=== PATIENT | male | born 1935 | race Caucasian/White ===

== ENCOUNTER → 2017-09-15 11:27 | Outpatient (CLI) | payer MEDICARE, OTHER, SELFPAY ==
[2017-09-15 14:22] LABS: Hemoglobin A1c 5.7 % (4.2-6.3)
[2017-09-15 14:34] LABS: Microalbumin:Creatinine Ratio 56.4 mg/g CRE (<30 mg/g CRE)
== END ==
PROVIDERS: Family Provider Internal Medicine; PCP Internal Medicine; Visit Provider Nurse Practitioner Family
DX: E11.9 Type 2 diabetes mellitus without complications (principal)
CPT/HCPCS: 36415; 82043; 82570; 83036

== ENCOUNTER → 2017-09-21 09:13 | Outpatient (CLI) | payer MEDICARE, OTHER, SELFPAY ==
[2017-09-21 08:49] VITALS: BP 124/72; BMI 33.7
--- NOTE | 2017-09-21 09:11 | RAD_ITS ---
STUDY: X-RAY - PELVIS AND BILATERAL HIPS REASON FOR EXAM: Male, 81 years old. Bilateral hip pain. Status post fall. TECHNIQUE: Radiological exam, hip, bilateral, with pelvis when performed; 2 views COMPARISON: 04/24/2016. FINDINGS: There is a non-specific bowel gas pattern. There are atherosclerotic vascular calcifications of the pelvic arteries. Normal bilateral iliac wings, sacroiliac joints and visualized sacrum. Normal bilateral superior and inferior pubic rami. Normal pubic symphysis. Normal bilateral ischial tuberosities. Normal visualized right femoral head. There is osteoarthritic spur formation of the right acetabular rim. There is moderate articular joint space narrowing of the right hip. There again is total left hip prosthesis in place. RAD/Hip 2-3 Views with Pelvis IMPRESSION: Status post left hip prosthesis. No demonstrated acute fracture. Electronically Signed: Harpreet Palmer MD at 0:31 EST Tel , Service support ,
--- NOTE | 2017-09-21 09:11 | RAD_ITS ---
STUDY: X-RAY - RIGHT KNEE REASON FOR EXAM: Male, 81 years old. Status post fall. Knee pain. TECHNIQUE: 3 view(s) of the knee. COMPARISON: None. FINDINGS: Normal visualized distal femur. Normal visualized proximal tibia and fibula. Normal proximal tibiofibular articulation. The colon There is mild degenerative arthrosis of the medial femorotibial compartment. There is mild degenerative arthrosis of the lateral femorotibial compartment. There is mild degenerative arthrosis of the patellofemoral articulation. There is no demonstrated joint effusion. There is prepatellar soft tissue swelling. There are vascular calcifications. RAD/Knee 3 Views IMPRESSION: Degenerative arthrosis. Prepatellar soft tissue swelling. No demonstrated acute osseous changes. Electronically Signed: Harpreet Palmer MD at 0:26 EST Tel , Service support ,
--- NOTE | 2017-09-21 09:11 | RAD_ITS ---
STUDY: X-RAY - LUMBAR SPINE REASON FOR EXAM: Male, 81 years old. Low back pain following fall. TECHNIQUE: 3 view(s) of the lumbar spine were obtained. COMPARISON: None FINDINGS: Normal lumbar lordosis. There is mild dextroscoliosis probably positional. There is a normal alignment of the vertebrae. There is mild decrease height of T11 and T12 vertebrae probably old. There is endplate spondylosis at multiple levels. There is narrowing of L3-L4 disc space. There is no demonstrated fracture. There is atherosclerotic calcification of the abdominal aorta without a demonstrated aneurysm. There is partially visualized left hip prosthesis. RAD/Lumbar Spine 2 or 3 Views IMPRESSION: Degenerative changes of the spine, as detailed above. If symptoms persist, CT scan or MRI of the lumbar spine recommended. Electronically Signed: Harpreet Palemr MD at 0:28 EST Tel , Service support ,
== END ==
PROVIDERS: Family Provider Internal Medicine; PCP Internal Medicine; Visit Provider Physician Assistant
DX: M54.5 Low back pain (principal); M25.551 Pain in right hip; M25.552 Pain in left hip; S80.01XA Contusion of right knee, initial encounter
CPT/HCPCS: 72100; 73502; 73562

== ENCOUNTER → 2017-11-13 08:43 | Outpatient (CLI) | payer MEDICARE, OTHER, SELFPAY ==
[2017-11-13 09:47] LABS: PSA,Total- Diagnostic 1.25 ng/mL (0.0-4.0)
== END ==
PROVIDERS: Family Provider Internal Medicine; PCP Internal Medicine
DX: N40.1 Benign prostatic hyperplasia with lower urinary tract symptoms (principal)
CPT/HCPCS: 36415; 84153; 97035; 97530

== ENCOUNTER → 2018-01-07 05:41 | Outpatient (CLI) | payer MEDICARE, OTHER, SELFPAY ==
--- NOTE | 2018-01-07 09:08 | STRESSREP ---
Stress Test Report Date: 01/07/2018 Procedure: Pharmacologic stress nuclear imaging study Indications: Shortness of breath/dyspnea on exertion Consent: Per the patient Procedure: The patient underwent pharmacologic (Regadenoson) evaluation with a peak heart rate of 110 beats per minute (79 predicted maximal heart rate) and a peak blood pressure of 138/60 mmHg. The baseline ECG demonstrated sinus rhythm; poor R-wave progression. The peak pharmacologic ECG demonstrated no obvious ECG changes. There were occasional PVCs pretest, during infusion, and recovery. There was no complaint of chest discomfort during pharmacologic infusion or recovery. The examination was discontinued secondary to completion of protocol. Impression: 1. Pharmacologic (Regadenoson) evaluation 2. Peak pharmacologic ECG with no obvious ECG changes. 3. There were occasional PVCs pretest, during infusion, and recovery 4. Nuclear images pending Myocardial perfusion imaging study: Technique: The patient was injected with 14.1 millicuries of technetium 99m Cardiolite and subsequently rest SPECT Cardiolite nuclear imaging was obtained in the horizontal long, vertical long, and short axis views. The patient underwent pharmacologic (Regadenoson) evaluation with a peak heart rate of 110 beats per minute (79 % percent predicted maximal heart rate) and a peak blood pressure of 138/60 mmHg. The patient was injected with 45 millicuries of technetium 99m Cardiolite and subsequently stress SPECT Cardiolite nuclear imaging was obtained in the horizontal long, vertical long, and short axis views. A gated Cardiolite study at peak stress was obtained. Interpretation: Rest and stress SPECT Cardiolite nuclear imaging status post realignment, normalization, and attenuation correction demonstrate uniform tracer uptake and myocardial perfusion appearing within normal limits. There is end systolic thickening and brightening. The gated Cardiolite study demonstrates myocardial thickening and inward wall motion. The reported LVEF is 54 %. Impression: 1. Rest and stress SPECT Cardiolite nuclear imaging demonstrate relative uniform tracer uptake and myocardial perfusion appearing within normal limits. 2. The gated Cardiolite study reports an LVEF of 84 %. This note was generated with [employer] software. It may contain incorrect words, spelling, and punctuation that were not noted in checking the note before signing.
== END ==
PROVIDERS: Family Provider Internal Medicine; PCP Internal Medicine; Visit Provider Internal Medicine Cardiovascular Disease
DX: R06.02 Shortness of breath (principal); I49.1 Atrial premature depolarization; I49.3 Ventricular premature depolarization; E78.5 Hyperlipidemia, unspecified; I10 Essential (primary) hypertension
CPT/HCPCS: 78452; 93017; A9500; A4216; J2785

== ENCOUNTER 2018-01-27 13:30 | Outpatient (RCR) | payer MEDICARE, OTHER, SELFPAY ==
--- NOTE | 2017-10-23 08:50 | HP.PTEVAL_ITS ---
Patient's Visit Information BELEN BRIGGS is a 82 year old M referred to Physical Therapy by MANUELA Moreira NP.MYODE with a diagnosis of . Date of Evaluation: 10/23/17 Physical Therapist: Donny Bonner PT, - Visit Plan Frequency: 2x /Week Duration: 4 Weeks Plan: MODALITIES ,DLS,POSTURAL EX'S,STRENGTHENING - Subjective Subjective: This 82 y/o male presents physical therapy with low back pain with sciatica since Jul 2017.Patient has had pain many years. Patient fell In Jul on right knee developed bursitis and had to get knee drained. Symptoms worse with standing,walking,bending and lifting. Symptom better with rest and sitting. Location of symtoms worse woth left gluteus and lateral hip.Denies parathesia/ tingling ,described as sharp pain. Patient has Tens unit at home .Did have chiropractor showed DDD. Pain doesnt affect sleeping. Pain affects affect quality of life and function. SOCIAL: single. VOCATION: retired. 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 NEURO: denies parathesia/tingling,reflexes L3-4,L4-5,L5-S1. GAIT: normal eze reciprocal pattern. MMT: 4/5 quads/hams/hip ,ankle 4/5. LUMBAR ROM : flexion min loss , extension mod loss,side glides mod loss. FLEXABLITY: hams min tight. SYMMTRIES : align - Special Tests L/S Slump test left side: Negative L/S Slump test right side: Negative L/S Left Straight Leg Raise: Negative L/S Right Straight Leg Raise: Negative Lumbar Standing: Flexion - Mechanical Response: No effect Lumbar Standing: Flexion - Symptoms During Testing: No effect Lumbar Standing: Flexion - Symptoms After Testing: No effect Lumbar Standing: Extension - Mechanical Response: No effect Lumbar Standing: Extension - Symptoms During Testing: Increases Lumbar Standing: Extension - Symptoms After Testing: No worse Lumbar Standing: Right Side Glides - Mechanical Response: No effect Lumbar Standing: Right Side Glennie - Symptoms During Testing: No effect Lumbar Standing: Right Side Glennie - Symptoms After Testing: No effect Lumbar Standing: Left Side Glennie - Mechanical Response: No effect Lumbar Standing: Left Side Glennie - Symptoms During Testing: No effect Lumbar Standing: Left Side Glennie - Symptoms After Testing: No effect - Goals Goal 1:: Independant with HEP Goal Time Frame: 4-6 Weeks Goal 2:: Independant with posture/maria eugenia mechanics for ADL'S Goal Time Frame: 4-6 Weeks Goal 3:: Decrease lumbar pain and radicular symptoms by 50% or greater to improve function with ADL'S Goal Time Frame: 4-6 Weeks Goal 4:: Patient be able to perform ADL's and housework tasks with min limiations with standing and walking. Goal Time Frame: 4-6 Weeks Goal 5:: Patient to be d/c to prophalaxix Goal Time Frame: 4-6 Weeks - Rehabilitation Potential Physical Therapy Diagnosis: This patient presents with lumbar pain with radicular symtoms in left leg possible lateral stenosis worse with walking , standing better with sitting thus impairs ablity to perform ADL'S and housework tasks. Rehabilitation Potential: Good - Anticipated Interventions Patient/Client Instruction: Educate patient on: Condition, Plan of Care For the Purpose of:: To decrease pain, To increase ROM, To improve muscle performance and motor function, To improve ability to perform ADL's, To increase tolerance to activity/condition/position, To improve ability of physical actions for home/community/work/leisure, To improve health of tissue, To decrease soft tissue restriction, To increase flexibility/ROM, To improve ability to perform tasks related to life management Therapeutic Exercise to Include: Strength training, Body mechanics, Postural training, Flexibilty training, Maria Del Rosario Exercises For the Purpose of:: To decrease pain, To increase ROM, To improve muscle performance and motor function, To increase tolerance to activity/condition/ position, To improve ability of physical actions for home/community/work/leisure , To improve health of tissue, To decrease soft tissue restriction, To increase flexibility/ROM, To improve ability to perform tasks related to life management TENS: Yes IF ES: Yes Cryotherapy (ice pack, ice massage): Yes Thermo therapy (hot pack): Yes Ultrasound (thermal/non thermal): Yes For the Purpose of:: To decrease pain, To increase ROM, To improve muscle performance and motor function, To improve ability to perform ADL's, To increase tolerance to activity/condition/position, To improve ability of physical actions for home/community/work/leisure, To improve health of tissue, To decrease soft tissue restriction, To increase flexibility/ROM, To improve ability to perform tasks related to life management Thank you for the opportunity to evaluate your patient. For Medicare and Medicare HMO plans, please review the plan of care and approve it. It will need to be FAXED BACK to us at [phone] for Medicare purposes. Please let me know if there are questions or concerns regarding this plan of care. Physician Signature: Date:
--- NOTE | 2017-11-20 08:01 | HP.PTREVAL_ITS ---
Jack Quinteros, MANAGER [employer], EMILY It has been my pleasure to treat BELEN BRIGGS over the last 8 visits for . Please see the progress note below for an update on the physical therapy plan of care! Subjective: Patient BP is running high. Patient reports dizzy. BACK PAIN is better less sharp pain Objective/Function: POSTURE: mild forward. GAIT: mild foward posture reciprocal. FLEXABLITY:hams mi tight. MMT: quads/hams 4/5,hip flexion 4-/5, ankle. LUMBAR ROM: min loss,etension mod loss,side glides min Plan Plan: CONT WITH POC Goals Goal 1:: Independant with HEP Goal Time Frame: 4-6 Weeks Goal Progress: Progressing Goal 2:: Independant with posture/maria eugenia mechanics for ADL'S Goal Time Frame: 4-6 Weeks Goal Progress: Progressing Goal 3:: Decrease lumbar pain and radicular symptoms by 50% or greater to improve function with ADL'S Goal Time Frame: 4-6 Weeks Goal Progress: Progressing Goal 4:: Patient be able to perform ADL's and housework tasks with min limiations with standing and walking. Goal Time Frame: 4-6 Weeks Goal Progress: Progressing Goal 5:: Patient to be d/c to prophalaxix Goal Time Frame: 4-6 Weeks Goal Progress: Progressing Anticipated Interventions Patient/Client Instruction: Educate patient on: Condition, Plan of Care For the Purpose of:: To decrease pain, To increase ROM, To improve muscle performance and motor function, To improve ability to perform ADL's, To increase tolerance to activity/condition/position, To improve ability of physical actions for home/community/work/leisure, To improve health of tissue, To decrease soft tissue restriction, To increase flexibility/ROM, To improve ability to perform tasks related to life management Therapeutic Exercise to Include: Strength training, Body mechanics, Postural training, Flexibilty training, Maria Del Rosario Exercises For the Purpose of:: To decrease pain, To increase ROM, To improve muscle performance and motor function, To increase tolerance to activity/condition/ position, To improve ability of physical actions for home/community/work/leisure , To improve health of tissue, To decrease soft tissue restriction, To increase flexibility/ROM, To improve ability to perform tasks related to life management TENS: Yes IF ES: Yes Cryotherapy (ice pack, ice massage): Yes Thermo therapy (hot pack): Yes Ultrasound (thermal/non thermal): Yes For the Purpose of:: To decrease pain, To increase ROM, To improve muscle performance and motor function, To improve ability to perform ADL's, To increase tolerance to activity/condition/position, To improve ability of physical actions for home/community/work/leisure, To improve health of tissue, To decrease soft tissue restriction, To increase flexibility/ROM, To improve ability to perform tasks related to life management Please do not hesitate to contact me at [phone] by phone or Fax: if you have questions or concerns regarding this new plan of care! Sincerely, Donny Bonner, PT,
--- NOTE | 2017-12-25 15:45 | HP.PTREVAL ---
Jack Quinteros, F[employer] INS[employer]ATION INSTALLER-C, It has been my pleasure to treat BELEN BRIGGS over the last 16 visits for . Please see the progress note below for an update on the physical therapy plan of care! Subjective: Patient reports more pain today left lumbar . Symptoms sore when getting up from chair... Pain can affected walking ,standing and ADL'S ,but overall stronger Objective/Function: POSTURE: mild foward posture,flat lumbar. GAIT: ambulates with mild foward posture,slow eze. MMT: quads/hams 4/5,hip 4-/5 ankl e4/5. LUMBAR ROM: flexion min loss ,extension min /mod loss,. -SLR Plan Plan: CONT WITH POC 2XWEEK FOR 3WEEKS Goals Goal 1:: Independant with HEP Goal Time Frame: 4-6 Weeks Goal Progress: Progressing Goal 2:: Independant with posture/maria eugenia mechanics for ADL'S Goal Time Frame: 4-6 Weeks Goal Progress: Progressing Goal 3:: Decrease lumbar pain and radicular symptoms by 50% or greater to improve function with ADL'S Goal Time Frame: 4-6 Weeks Goal Progress: Progressing Goal 4:: Patient be able to perform ADL's and housework tasks with min limiations with standing and walking. Goal Time Frame: 4-6 Weeks Goal Progress: Progressing Goal 5:: Patient to be d/c to prophalaxix Goal Time Frame: 4-6 Weeks Goal Progress: Progressing Anticipated Interventions Patient/Client Instruction: Educate patient on: Condition, Plan of Care For the Purpose of:: To decrease pain, To increase ROM, To improve muscle performance and motor function, To improve ability to perform ADL's, To increase tolerance to activity/condition/position, To improve ability of physical actions for home/community/work/leisure, To improve health of tissue, To decrease soft tissue restriction, To increase flexibility/ROM, To improve ability to perform tasks related to life management Therapeutic Exercise to Include: Strength training, Body mechanics, Postural training, Flexibilty training, Maria Del Rosario Exercises For the Purpose of:: To decrease pain, To increase ROM, To improve muscle performance and motor function, To increase tolerance to activity/condition/position, To improve ability of physical actions for home/community/work/leisure, To improve health of tissue, To decrease soft tissue restriction, To increase flexibility/ROM, To improve ability to perform tasks related to life management TENS: Yes IF ES: Yes Cryotherapy (ice pack, ice massage): Yes Thermo therapy (hot pack): Yes Ultrasound (thermal/non thermal): Yes For the Purpose of:: To decrease pain, To increase ROM, To improve muscle performance and motor function, To improve ability to perform ADL's, To increase tolerance to activity/condition/position, To improve ability of physical actions for home/community/work/leisure, To improve health of tissue, To decrease soft tissue restriction, To increase flexibility/ROM, To improve ability to perform tasks related to life management Please do not hesitate to contact me at [phone] by phone or if you have questions or concerns regarding this new plan of care! Sincerely, Donny Bonner PT,
--- NOTE | 2018-01-27 13:59 | HP.PTDCSUM ---
HP - PT D/C Summary It has been my pleasure to treat BELEN BRIGGS under orders from Jack Quinteros NP-C, for the diagnosis of LOW BACK PAIN WITH LEFT SIDE SCIATICA for a total of 19 visit(s). Discharge Date: 01/27/18 Please see the following information for a summary of their discharge status. - Subjective Subjective: Doing better less pain overall.. Doing more activities ADL'S walking standing - Pain Bilateral Back Pain Intensity (Out of 10): 0 Left Lower Extremity Pain Intensity (Out of 10): 0 - Overall Improvement % Improvement: 60 - Objective Objective/Function: POSTURE: mild foward posture,decrease lordosis. GAIT: mild foward posture reciprocal pattern. MMT: 4/5 quads/hams/hip /ankle 4/5. LUMBAR ROM: flexion min loss ,extension min/mod lossmside glides mod loss. -SLR - Goals Goal 1:: Independant with HEP Goal Progress: Goal Met Goal 2:: Independant with posture/maria eugenia mechanics for ADL'S Goal Progress: Goal Met Goal 3:: Decrease lumbar pain and radicular symptoms by 50% or greater to improve function with ADL'S Goal Progress: Goal Met Goal 4:: Patient be able to perform ADL's and housework tasks with min limiations with standing and walking. Goal Progress: Progressing Goal 5:: Patient to be d/c to prophalaxix Goal Progress: Goal Met - Plan Plan: HEP - D/C Information Discharge Comments: HEP If there are questions or concerns regarding this patient's physical therapy, please feel free to call me at [phone]. Thank you for the referral of this patient. Sincerely, Donny Bonner, PT,
== END 2018-01-27 19:00 | disposition home or self-care (01) ==
LOC: PT 13:30
PROVIDERS: Family Provider Internal Medicine; PCP Internal Medicine; Visit Provider Nurse Practitioner Family
DX: M54.42 Lumbago with sciatica, left side (principal)
CPT/HCPCS: 97014; 97035; 97110; 97162; 97530; G0283

== ENCOUNTER → 2018-02-04 05:50 | Outpatient (CLI) | payer MEDICARE, OTHER, SELFPAY ==
[2018-02-04 07:32] LABS: Anion Gap 7 (5-15); BUN 25 mg/dL (7-18); BUN/Creat Ratio 17.9 RATIO (10-20); Calcium,Total 8.6 mg/dL (8.5-10.1); Chloride 106 mmol/L (98-107); EST Glomerular Filtration Rate 52 mL/min (>60); Est Glom Filt Rate - Afr Amer 63 mL/min (>60); Glucose 107 mg/dL (74-106); Potassium 4.5 mmol/L (3.5-5.1); Sodium Level 142 mmol/L (136-145)
[2018-02-04 07:35] LABS: Microalbumin:Creatinine Ratio 111.4 mg/g CRE (<30 mg/g CRE)
[2018-02-04 08:02] LABS: Hemoglobin A1c 5.5 % (4.2-6.3)
== END ==
PROVIDERS: Family Provider Internal Medicine; PCP Internal Medicine; Visit Provider Internal Medicine
DX: E11.9 Type 2 diabetes mellitus without complications (principal); N18.3 Chronic kidney disease, stage 3 (moderate)
CPT/HCPCS: 36415; 80048; 82043; 82570; 83036

== ENCOUNTER → 2018-03-25 12:03 | Outpatient (CLI) | payer MEDICARE, OTHER, SELFPAY ==
--- NOTE | 2018-03-25 12:04 | MRI_ITS ---
STUDY: MRI LUMBAR SPINE WITHOUT CONTRAST REASON FOR EXAM: Male, 82 years old. LOW BACK PAIN pain low back and bilat legs x6 months TECHNIQUE: Standardized fat and water weighted pulse sequences were obtained in the sagittal and axial planes. COMPARISON: X-ray September 21, 2017 FINDINGS: Normal lumbar lordosis. There is no substantial scoliosis. Normal conus medullaris that terminates at the T12-L1 level. 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 There is minimal anterolisthesis L3-4. There is multilevel disc desiccation. There is loss of disc height at L1-2. Vertebral body heights are maintained. Bone marrow signal is normal. There is multilevel facet arthropathy and ligamentum flavum hypertrophy. This is severe at L3-4 and L4-5. T12/L1: There is a diffuse bulge. There is mild central canal stenosis and mild bilateral neuroforaminal stenosis. L1/2: There is a diffuse bulge. There is mild central canal stenosis and moderate bilateral neuroforaminal stenosis. L2/3: There is a diffuse bulge. There is mild central canal stenosis and moderate left and mild to moderate right neuroforaminal stenosis. L3/4: There is a diffuse bulge. There is severe central canal stenosis and severe right and moderate left neuroforaminal stenosis. L4/5: There is a diffuse bulge. There is moderate central canal stenosis and severe right and moderate to severe left neuroforaminal stenosis. L5/S1: There is a diffuse bulge. There is impression on the ventral thecal sac and moderate left and mild to moderate right neuroforaminal stenosis. Normal visualized sacral ala. Normal visualized paraspinous soft tissue structures. MRI/Spine Lumbar (Routine) IMPRESSION: Multilevel degenerative changes, as described above, including facet arthropathy and ligamentum flavum hypertrophy. T12/L1: There is a diffuse bulge. There is mild central canal stenosis and mild bilateral neuroforaminal stenosis. L1/2: There is a diffuse bulge. There is mild central canal stenosis and moderate bilateral neuroforaminal stenosis. L2/3: There is a diffuse bulge. There is mild central canal stenosis and moderate left and mild to moderate right neuroforaminal stenosis. L3/4: There is a diffuse bulge. There is severe central canal stenosis and severe right and moderate left neuroforaminal stenosis. L4/5: There is a diffuse bulge. There is moderate central canal stenosis and severe right and moderate to severe left neuroforaminal stenosis. L5/S1: There is a diffuse bulge. There is moderate left and mild to moderate right neuroforaminal stenosis. Electronically Signed: Radha Bradshaw MD at 14:05 EDT , Service support ,
== END ==
PROVIDERS: Family Provider Internal Medicine; PCP Internal Medicine; Visit Provider Nurse Practitioner Family
DX: M51.36 Other intervertebral disc degeneration, lumbar region (principal); R93.7 Abnormal findings on diagnostic imaging of other parts of musculoskeletal system; M54.16 Radiculopathy, lumbar region
CPT/HCPCS: 72148

== ENCOUNTER → 2018-04-28 12:37 | Outpatient (CLI) | payer MEDICARE, OTHER, SELFPAY ==
[2018-04-28 14:36] LABS: Absolute Lymphocyte Count 1.05 X10^3/ul (0.83-4.51); Absolute Neutrophil Count 2.9 X10^3/uL (2.0-7.7); Basophil# 0.01 X10^3/uL; Basophil% 0.2 % (0-1); Eosinophil# 0.05 X10^3/uL; Eosinophils% 1.2 % (0-5); Hematocrit 29.1 % (40-54); Hemoglobin 9.6 g/dl (13.0-16.5); Lymphocyte # 1.05 X10^3/ul (4.0); Lymphocyte % 24.2 % (19-41); Mean Corpuscular Hgb 28.7 pg (27.0-32.0); Mean Corpuscular Volume 86.9 fL (80-94); Monocyte# 0.35 X10^3/uL; Monocyte% 8.1 % (0-10); Neutrophil # 2.85 X10^3/uL (2.7-7.7); Neutrophil % 65.6 % (47-70); Platelet Count 68 K/mm3 (150-450); RBC Distribution Width CV 20.8 % (11.6-14.6); RBC Distribution Width SD 60.4 fl (35.1-43.9); Red Blood Count 3.35 M/mm3 (4.6-6.2); White Blood Count 4.3 K/mm3 (4.4-11.0)
[2018-04-28 14:38] LABS: Differential Indicated SCAN CRITERIA MET; POSITIVE COUNT NO; POSITIVE DIFFERENTIAL NO; POSITIVE MORPHOLOGY YES
== END ==
PROVIDERS: Family Provider Internal Medicine; PCP Internal Medicine; Visit Provider Nurse Practitioner Family
DX: R06.02 Shortness of breath (principal); R04.2 Hemoptysis
CPT/HCPCS: 36415; 85025

== ENCOUNTER → 2018-04-29 09:16 | Outpatient (CLI) | payer MEDICARE, OTHER, SELFPAY | PROVIDERS: Family Provider Internal Medicine; PCP Internal Medicine; Visit Provider Nurse Practitioner Family | DX: R06.02 Shortness of breath (principal); R04.2 Hemoptysis; J44.9 Chronic obstructive pulmonary disease, unspecified | CPT/HCPCS: 87070; 87106; 87186; 87205 ==

== ENCOUNTER → 2018-05-04 09:36 | Outpatient (CLI) | payer MEDICARE, OTHER, SELFPAY ==
--- NOTE | 2018-05-04 09:38 | CT_ITS ---
STUDY: CT CHEST WITHOUT CONTRAST REASON FOR EXAM: Male, 82 years old. Shortness of breath RADIATION DOSAGE (If Supplied By Facility): CTDIvol = ( 17.54 ) mGy, DLP = ( 626.66 ) mGycm TECHNIQUE: Transaxial imaging was performed without the administration of intravenous contrast material. Individualized dose optimization techniques were used for this CT. COMPARISON: None. FINDINGS: Unenhanced thyroid is grossly within normal limits. The lungs are adequately inflated. There is bibasilar airspace disease with small effusions. Throughout both lungs, there are small nodular densities demonstrating some spiculation suggesting malignancy versus inflammation or infection. Largest of these is in the left upper lobe measuring 3.4 x 2.6 cm. Another is seen in the inferior aspect of the left upper lobe measuring 1 x 1.1 cm and several punctate ones are in the left lower lobe and right lower lobe. Early emphysematous changes noted in the upper lobes. Borderline cardiomegaly. Unremarkable pericardium. Multiple small mediastinal lymph nodes are noted. Pretracheal lymph node noted measuring 9 x 8 mm. Subcarinal lymph node noted measuring 2.5 x 1.2 cm. Normal hilar regions. Normal unenhanced pulmonary arteries. There is atherosclerotic tortuosity of the aortic arch and descending thoracic aorta. There are multi-level degenerative changes of the thoracic spine. There is no demonstrated abnormality of the visualized upper abdomen. CT/Chest without Contrast IMPRESSION: 1. Hypoinflated lungs with bibasilar airspace disease and small effusions. Throughout both lungs, small nodular densities demonstrating some spiculation. Given their appearance, more likely related to inflammation or infection. Less likely malignancy however, not excluded. Repeat chest CT will be needed in 3-6 months to reevaluate. 2. Early emphysematous changes in the upper lobes. 3. Several nonspecific mediastinal lymph nodes Electronically Signed: Shine Dumont DO at 7:54 EDT Tel , Service support ,
== END ==
PROVIDERS: Family Provider Internal Medicine; PCP Internal Medicine; Visit Provider Nurse Practitioner Family
DX: R06.02 Shortness of breath (principal); R05 Cough; R04.2 Hemoptysis; J44.9 Chronic obstructive pulmonary disease, unspecified
CPT/HCPCS: 71250

== ENCOUNTER → 2018-05-17 10:18 | Outpatient (CLI) | payer MEDICARE, OTHER, SELFPAY ==
[2018-05-17 12:31] LABS: Absolute Lymphocyte Count 1.28 X10^3/ul (0.83-4.51); Absolute Neutrophil Count 2.9 X10^3/uL (2.0-7.7); Basophil# 0.02 X10^3/uL; Basophil% 0.4 % (0-1); Eosinophil# 0.02 X10^3/uL; Eosinophils% 0.4 % (0-5); Hematocrit 31.3 % (40-54); Hemoglobin 10.2 g/dl (13.0-16.5); Lymphocyte # 1.28 X10^3/ul (4.0); Lymphocyte % 27.2 % (19-41); Mean Corp Hgb Conc 32.6 g/gl (32-36); Mean Corpuscular Hgb 28.2 pg (27.0-32.0); Mean Corpuscular Volume 86.5 fL (80-94); Monocyte# 0.45 X10^3/uL; Monocyte% 9.6 % (0-10); Neutrophil % 61.6 % (47-70); Platelet Count 70 K/mm3 (150-450); RBC Distribution Width CV 21.9 % (11.6-14.6); Red Blood Count 3.62 M/mm3 (4.6-6.2); White Blood Count 4.7 K/mm3 (4.4-11.0)
[2018-05-17 12:32] LABS: Differential Indicated SCAN CRITERIA MET; POSITIVE COUNT NO; POSITIVE DIFFERENTIAL NO; POSITIVE MORPHOLOGY YES
[2018-05-17 12:51] LABS: Hemoglobin A1c 6.3 % (4.2-6.3)
[2018-05-17 13:26] LABS: Anisocytosis 2+; Macrocytosis RARE; Platelet Estimate MKD DEC (ADEQ)
[2018-05-17 13:27] LABS: Schistocytes 2+
[2018-05-18 13:30] LABS: Pathologist Review Reviewed
== END ==
PROVIDERS: Family Provider Internal Medicine; PCP Internal Medicine; Referring Provider Internal Medicine; Visit Provider Internal Medicine
DX: D46.20 Refractory anemia with excess of blasts, unspecified (principal); E11.9 Type 2 diabetes mellitus without complications
CPT/HCPCS: 36415; 83036; 85025

== ENCOUNTER 2018-05-26 11:32 | Inpatient (IN) | payer MEDICARE, OTHER, SELFPAY ==
[2018-05-26] VITALS (9 sets, daily range): BP systolic 113–161; BP diastolic 65–98; PULSE 80–94; RESP 17–22; TEMP 36.6–37.1; O2SAT 92–99; BMI 33.4; BMI 31.5
--- NOTE | 2018-05-26 11:57 | RAD_ITS ---
STUDY: X-RAY CHEST REASON FOR EXAM: Male, 82 years old. INCREASING SOB, SWELLING IN BOTH LEGS, RECENT FALL, AND MID CHEST PAIN WITH EXERTION. COPD, EMPHYSEMA TECHNIQUE: Single AP portable view of the chest. COMPARISON: Chest x-ray April 10, 2014, chest CT May 04, 2018 FINDINGS: Cardiac monitoring leads are present. Low lung lines are noted. There is mild nonspecific elevation the right hemidiaphragm. There is evidence of a right-sided pleural effusion. Previously note was made of a small left pleural effusion. This is not identified on this single projection of the chest. There is mild cardiac enlargement. Normal mediastinum and delroy. Normal visualized pulmonary arteries. There is atherosclerotic calcification of the aortic arch . Normal visualized thoracic spine. Normal visualized ribs, clavicles, and shoulders. There is no demonstrated abnormality of the visualized soft tissue structures of the upper abdomen. RAD/Chest 1 View (Portable) IMPRESSION: Low lung volumes. Small right pleural effusion. No evidence of acute failure. Stable cardiomegaly. Electronically Signed: Juana Schulz MD at 13:02 EDT , Service support ,
--- NOTE | 2018-05-26 11:57 | EKG12_ITS ---
Test Reason : SOB Blood Pressure : / mmHG Vent. Rate : 089 BPM Atrial Rate : 250 BPM P-R Int : 000 ms QRS Dur : 086 ms QT Int : 364 ms P-R-T Axes : 000 -62 041 degrees QTc Int : 442 ms Atrial fibrillation Left axis deviation Inferior infarct , age undetermined Anteroseptal infarct , age undetermined Abnormal ECG Confirmed by SHELBY CORADO, BG ([id number]), assistant production editor QUINN BLAIR ([id number]) on 05/31/2018 3:52:40 PM Referred By: Mic Khan Confirmed By:BG RYAN MD
--- NOTE | 2018-05-26 12:13 | ED.VISSUMM ---
- ER Visit Summary Date of Service: 05/26/18 Chief Complaint: Shortness of breath and leg swelling History of Present Illness: The patient is a 82 M history of hypertension, COPD but not on oxygen and ixo-rhtesck-xoxorbwko diabetes. Patient states that he has had shortness of breath for last month primarily with exertion. He denies chest pain. He denies fever. He has a chronic cough. He states he was diagnosed with pneumonia. But now he states he has had weight gain and swelling to both lower extremities. No history of DVT or PE. No recent travel, surgery, hospitalization or immobilization. No chest pain or hemoptysis. Physical Examination: Older male no acute distress. Lying in bed. Vital signs are stable. His pulse ox is 92% on room air no hypoxia. H EENT exam unremarkable. Neck nontender. No JVD no lymphadenopathy. Lungs clear to auscultation bilaterally. Heart A. fib at 90.. Abdomen soft and nontender. Normal bowel sounds no peritoneal signs. He is moving all 4 extremities. There are no motor deficits. He does have 1+ pitting edema with both lower extremities. Calves are nontender. Neurologically is awake and alert. With no focal deficits. Test Results: EKG A. fib rate of 89. This is change from an EKG from 2012 but I do not have a more recent EKG. Patient denies having a history of A. fib I do not know if that is accurate. CBC shows pancytopenia with a white count of 3. Hemoglobin of 9.3 which is around his baseline. Platelet count 76,000 again along his baseline. Chemistries unremarkable creatinine 1.55 which is his baseline renal insufficiency. Troponin 0 0.055 BNP 282. Chest x-ray stable cardiomegaly with a small right pleural effusion. Emergency Department Course and Treatment: Patient with exertional dyspnea and leg swelling will undergo cardiac workup. Treatment Plan: Repeat exam patient is doing well. He states he cannot even walk around his house without having him to sit down to catch his breath. He spoke to the hospitalist about admission. Disposition: Admission Impression: Acute exertional dyspnea Bilateral peripheral edema Atrial fibrillation Rule out CHF Chronic pancytopenia Chronic renal insufficiency This note was generated with [employer] dictation software. It may contain incorrect words, spelling, and punctuation that were not noted in review of the chart prior to signing ED Disposition - Plan for ED Patient: Chief Complaint: Shortness of Breath
[2018-05-26] MEDS: Aspirin 81 MG TAB.CHEW 324 MG PO (12:54)
[2018-05-26 13:00] LABS: Absolute Neutrophil Count 2.3 X10^3/uL (2.0-7.7); Basophil# 0.01 X10^3/uL; Basophil% 0.3 % (0-1); Eosinophil# 0.02 X10^3/uL; Eosinophils% 0.6 % (0-5); Hematocrit 28.1 % (40-54); Hemoglobin 9.3 g/dl (13.0-16.5); Lymphocyte % 23.9 % (19-41); Mean Corp Hgb Conc 33.1 g/gl (32-36); Mean Corpuscular Hgb 28.4 pg (27.0-32.0); Mean Corpuscular Volume 85.7 fL (80-94); Neutrophil % 68.6 % (47-70); Platelet Count 76 K/mm3 (150-450); RBC Distribution Width CV 22.3 % (11.6-14.6); RBC Distribution Width SD 63.7 fl (35.1-43.9); Red Blood Count 3.28 M/mm3 (4.6-6.2); White Blood Count 3.4 K/mm3 (4.4-11.0)
[2018-05-26 13:01] LABS: Anion Gap 4 (5-15); BUN 22 mg/dL (7-18); BUN/Creat Ratio 14.2 RATIO (10-20); Calcium,Total 8.4 mg/dL (8.5-10.1); Chloride 105 mmol/L (98-107); Creatinine, Serum 1.55 mg/dL (0.70-1.30); EST Glomerular Filtration Rate 46 mL/min (>60); Est Glom Filt Rate - Afr Amer 56 mL/min (>60); Estimated Creatinine Clearance 38.59 ml/min; Glucose 102 mg/dL (74-106); Potassium 4.5 mmol/L (3.5-5.1); Sodium Level 136 mmol/L (136-145)
[2018-05-26 13:02] LABS: Differential Indicated SCAN CRITERIA MET; POSITIVE COUNT NO; POSITIVE DIFFERENTIAL NO; POSITIVE MORPHOLOGY YES
[2018-05-26 13:23] LABS: Anisocytosis 3+; Microcytosis 2+; Schistocytes 2+
[2018-05-26 13:25] LABS: Platelet Estimate MOD DEC (ADEQ)
[2018-05-26 13:27] LABS: BNP,B-Type NATRIURETIC PEPTIDE 282.3 pg/mL (0-100)
--- NOTE | 2018-05-26 14:37 | ECHOD_ITS ---
Reason For Study: CHF Procedure This was a 2D Doppler, Color Flow transthoracic echocardiogram. Exam performed portable in patient room. Left Ventricle Normal LV size. Moderate concentric left ventricular hypertrophy. Left ventricular systolic function is normal. The estimated ejection fraction is 60 %. Diastolic function is indeterminate. No regional wall motion abnormalities noted. Right Ventricle Normal RV size. Normal systolic function. Atria The left atrium is moderately enlarged. The right atrium is mildly enlarged. Mitral Valve There is mild to moderate mitral annular calcification. Mild (1+) eccentric mitral valve insufficiency. Tricuspid Valve Normal tricuspid valve. Mild tricuspid valve insufficiency. Aortic Valve Normal aortic valve. Trisinus/trileaflet aortic valve. Mild (1+) aortic valve insufficiency. Pulmonic Valve Normal pulmonic valve. Great Vessels Normal aortic root. The pulmonary artery is normal size. Normal inferior vena cava. Pericardium/Pleural No pericardial effusion. MMode/2D Measurements & Calculations LVIDd: 4.0 cm IVSd: 1.5 cm Ao root diam: 3.4 cm LVIDs: 3.0 cm LVPWd: 1.5 cm LA dimension: 4.7 cm RVDd: 3.7 cm FS: 24.3 % LAV(MOD-bp): 115.9 ml LA A4 area: 27.3 cm2 RA A4 area: 20.3 cm2 LAV(MOD-bp) Indexed: 52.2 ml/m2 LAV(MOD-sp2): 104.7 ml LAV(MOD-sp4): 104.8 ml Doppler Measurements & Calculations MV E max miri: 122.9 cm/sec Ao V2 max: 140.8 cm/sec AI max miri: 380.2 cm/sec Ao max P.9 mmHg AI max P.9 mmHg AI dec slope: 234.6 cm/sec2 AI P1/2t: 474.6 msec LV V1 max: 92.5 cm/sec PA V2 max: 87.0 cm/sec TR max miri: 288.3 cm/sec LV V1 max P.4 mmHg TR max P.7 mmHg Interpretation Summary Normal LV size. Moderate concentric left ventricular hypertrophy. Left ventricular systolic function is normal. The estimated ejection fraction is 60 %. Diastolic function is indeterminate. The left atrium is moderately enlarged. Ordering Physician: Mason Martinez Referring Physician: Mic Khan Performed By: Nora Saeed, MISSYCS, RVT
--- NOTE | 2018-05-26 14:46 | PCM.HP.STD ---
Problem List (1) Acute on chronic diastolic CHF (congestive heart failure) Status: Acute History of Present Illness Date of Admission: 05/26/18 Chief Complaint: exertional dyspnea and LE swelling The patient is a 82 year old M with h/o COPD and DM2 and MDS. Presents to hospital with 1 month h/o progressively worsening exertional dyspnea and LE swelling. Denies any orthopnea or PND. Denies exertional chest pain. Denies any palpitations and denies any fever or chills. has noted 8 Lb gain in weight as well Has occasional cough. No wheezing. Here on the ED noted to be in atrial fibrillation and HR only mildly elevated [] Past Medical History Past Medical History (Chronic Problems): Chronic Problems (Last Reviewed 05/07/18 @ 15:29 by Emilie Marie) MDS (myelodysplastic syndrome), low grade (Chronic) HTN (hypertension) (Chronic) Hyperlipidemia (Chronic) Hypertension (Chronic) Hyperlipemia (Chronic) Type 2 diabetes mellitus (Chronic) COPD (chronic obstructive pulmonary disease) (Chronic) Medical History: Medical History (Last Reviewed 05/07/18 @ 15:29 by Emilie Marie) Premature atrial contractions (Acute) I49.1 MDS (myelodysplastic syndrome), low grade (Chronic) D46.20 Paroxysmal atrial tachycardia (Acute) I47.1 Paroxysmal ventricular tachycardia (Acute) I47.2 Premature ventricular contraction (Acute) I49.3 Palpitations (Acute) R00.2 HTN (hypertension) (Chronic) I10 Hyperlipidemia (Chronic) E78.5 Hypertension (Chronic) I10 Hyperlipemia (Chronic) E78.5 Type 2 diabetes mellitus (Chronic) E11.9 COPD (chronic obstructive pulmonary disease) (Chronic) J44.9 Bilateral hip pain M25.551, M25.552 Contusion of right knee S80.01XA Inguinal hernia K40.90 Low back pain M54.5 Prepatellar bursitis, right knee M70.41 Thrombocytopenia D69.6 Arthritis M19.90 BPH (benign prostatic hyperplasia) N40.0 BPH (benign prostatic hyperplasia) N40.0 MDS (myelodysplastic syndrome), low grade D46.20 Allergies codeine Adverse Reaction (Severe, Verified 05/26/18 11:33) Unknown Home Medications: Ambulatory Orders Medication Instructions Recorded apple cider vinegar 300 mg tablet 450 mg PO DAILY 09/15/17 multivitamin with iron tablet 1 tab PO QDAY 09/15/17 mecobalamin (vitamin B12) 1,000 1,000 mcg SUBLINGUAL QDAY 09/25/17 mcg disintegrating tablet,sublingual vitamin B complex-vitamin C-folic 1 tab PO QDAY 09/25/17 acid 0.8 mg tablet albuterol sulfate HFA 90 1 puff INHALATION Q6H PRN #8.5 g 04/28/18 mcg/actuation aerosol inhaler Guaifenesin [Guaifenesin ER] 1,200 mg PO Q12H 05/26/18 Lisinopril [Zestril] 2.5 mg PO QDAY 05/26/18 Metformin HCl [Glucophage] 500 mg PO BID 05/26/18 Metoprolol Tartrate 12.5 mg PO BID 05/26/18 Simvastatin 20 mg PO QPM 05/26/18 Tamsulosin HCl [Flomax] 0.4 mg PO DAILY 05/26/18 Tiotropium [place] [Spiriva] 1 cap INHALATION QDAY 05/26/18 Surgical History: Surgical History (Last Reviewed 05/07/18 @ 15:29 by Emilie Marie) H/O hernia repair Z98.890, Z87.19 History of left hip replacement Z96.642 History of left hip replacement Z96.642 History of hand surgery Z98.890 Lt Smoking Status: Former smoker Review of Systems Constitutional: Denies: Anorexia, Chills, Fever, Night Sweats Eyes: Denies: Pain Cardiovascular: Reports: Claudication - likely neurogenic type, Edema, Light Headedness. Denies: Orthopnea Respiratory: Reports: Cough, Shortness of Breath. Denies: Hemoptysis, Pleuritic Pain Gastrointestinal: Reports: Dyspepsia. Denies: Vomiting Musculoskeletal: Reports: Back Pain Hematologic/ Lymphatic: Reports: Anemia, Easy Bruising, Petechiae, Purpura Comment: all other systems reviewed and are negative VTE Information - Inpt Only VTE Present on Admission: No VTE Mechan Device Prophylaxis: None VTE Pharm Prophylaxis ordered?: Yes Patient Problems: Active and Suspected Problems (Last Reviewed 05/07/18 @ 15:29 by Emilie Marie) Acute on chronic diastolic CHF (congestive heart failure) (Acute) - Physical Exam General: Alert, Oriented x3, Cooperative - mildly dyspneic HEENT: Atraumatic, Normocephalic Oral: Moist Mucosa Neck: Supple, No Nuchal Rigidity, JVD, Right Lungs: Diminished, Tachypneic, - - reduced and diminished BS especially in the bases Abdomen: Bowel Sounds Present, Soft, Non Tender, Non-Distended, Obese Extremities: Edema - pittting edema up to sacrum Skin: - - ecchymoses noted Musculoskeletal: No Muscle Wasting Neurological: Cranial nerves II-XII grossly intact, Neuro grossly intact Psych/Mental Status: Normal Affect, Appropriate, Alert and oriented to time, place, person, mood and affect Vital Signs Temp Pulse Resp BP Pulse Ox 97.9 F 81 18 161/82 H 99 05/26/18 11:33 05/26/18 13:25 05/26/18 13:25 05/26/18 11:33 05/26/18 13:25 Oxygen Flow Rate (L/min) 2 Oxygen Delivery Method Nasal Cannula Weight: 105.687 kg Body Mass Index (BMI) 33.4 Laboratory Tests Past 24 Hrs 05/26/18 05/26/18 05/26/18 12:30 12:30 12:30 WBC 3.4 L RBC 3.28 L Hgb 9.3 L Hct 28.1 L MCV 85.7 MCH 28.4 MCHC 33.1 RDW 22.3 H RDW Differential 63.7 H Plt Count 76 L Immature Gran % (Auto) 0.600 Neut % (Auto) 68.6 Lymph % (Auto) 23.9 [place] % (Auto) 6.0 Eos % (Auto) 0.6 Baso % (Auto) 0.3 Absolute Neuts (auto) 2.3 Absolute Lymphs (auto) 0.80 L Total Counted Not Reportable Platelet Estimate MOD DEC Anisocytosis 3+ Microcytosis 2+ Schistocytes 2+ H Sodium 136 Potassium 4.5 Chloride 105 Carbon Dioxide 27.0 Anion Gap 4 L BUN 22 H Creatinine 1.55 H Estim Creat Clear Calc 38.59 Est GFR (MDRD) Af Amer 56 L Est GFR (MDRD) Non-Af 46 L BUN/Creatinine Ratio 14.2 Glucose 102 Calcium 8.4 L Troponin I 0.055 H B-Natriuretic Peptide 282.3 H Assessment/Plan All Active Problems (Last Reviewed 05/07/18 @ 15:29 by Emilie Marie) Acute on chronic diastolic CHF (congestive heart failure) (Acute) Pain on swallowing (Acute) Premature atrial contractions (Acute) Hypotension (Acute) Paroxysmal atrial tachycardia (Acute) Paroxysmal ventricular tachycardia (Acute) Premature ventricular contraction (Acute) Palpitations (Acute) 1. Acute on chronic diastolic CHF Echo done 1 year ago was normal with EF of 60% Stress test few months ago was normal as well Likely failure is precipitated by atrial fibrillation with RVR IV lasix 40 bid, daily weights and strict I/Os Consult cardiology 2. Atrial fibrillation with RVR [id number] score of 4 Eliquis or any other NOAC would be good intermediate teacher Will avoid HBW or LMWH given patient's thrombocytopenia 3. Progressive dyspnea. Suspect patient may have underlying ILD or pulmonary HTN Recent CT showing some patchy ground glass opacities Carries diagnosis of COPD in problem list but quit smoking 35 years ago In all likelihood will need PFTs as an outpatient and pulmonology consult now or as an outpatient 4. Low grade MDS. Stable 5. DM2. Will continue home regimen for now 6. HTN. Stable Code Visit Inpatient E&M: 68303 Init Hosp L3
--- NOTE | 2018-05-26 15:15 | CON.PCM_ITS ---
Problem List (1) Paroxysmal ventricular tachycardia Status: Acute (2) HTN (hypertension) Status: Chronic (3) Hyperlipidemia Status: Chronic (4) Hypertension Status: Chronic Qualifiers: Hypertension type: essential hypertension Qualified Code(s): I10 - Essential (primary) hypertension Reason for Consult Date of Consultation: 05/26/18 Reason for Consultation: Shortness of breath, lower extremity edema, new onset heart failure, dyspnea on exertion, COPD, diabetes History of Present Illness: The patient is a 82 year old M, patient of Dr. Rubin, with a history of diabetes, hypertension, COPD, former smoker who quit around 30 years ago after a 47-02-lzgn-year smoking history, no known cardiac disease. He has never had a stroke. The patient was in normal health up into the last 3 or 4 days when he began developing worsening lower extremity edema, shortness of breath, and dyspnea on exertion to the point where he cannot walk from his bed to the bathroom without becoming profoundly short of breath. His aspirin was stopped about 3 days ago by his PCP, but did not appear to be related to his edema. He denies any chest pain, angina, presyncope or syncope. The patient had an echocardiogram in 2017 which apparently demonstrated normal LV size and function, RVSP was not commented on. Patient had a pharmacologic stress test on 01/07/18 which was negative for inducible ischemia. Currently the patient is laying in bed, no acute distress, and has no difficulty laying down flat. IV diuresis is pending. Patient was also found to have a creatinine clearance of around 56, and a creatinine about 1.55. 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 Repeat echo is pending. [] Past Medical History Allergies/Adverse Reactions: Allergies codeine Adverse Reaction (Severe, Verified 05/26/18 11:33) Unknown Home Medications: Ambulatory Orders Medication Instructions Recorded apple cider vinegar 300 mg tablet 450 mg PO DAILY 09/15/17 multivitamin with iron tablet 1 tab PO QDAY 09/15/17 mecobalamin (vitamin B12) 1,000 1,000 mcg SUBLINGUAL QDAY 09/25/17 mcg disintegrating tablet,sublingual albuterol sulfate HFA 90 1 puff INHALATION Q6H PRN #8.5 g 04/28/18 mcg/actuation aerosol inhaler Guaifenesin [Guaifenesin ER] 1,200 mg PO Q12H 05/26/18 Lisinopril [Zestril] 2.5 mg PO QDAY 05/26/18 Metformin HCl [Glucophage] 500 mg PO BID 05/26/18 Metoprolol Tartrate 12.5 mg PO BID 05/26/18 Simvastatin 20 mg PO QPM 05/26/18 Tamsulosin HCl [Flomax] 0.4 mg PO DAILY 05/26/18 Tiotropium [place] [Spiriva] 1 cap INHALATION QDAY 05/26/18 Past Medical History (Chronic Problems): Chronic Problems (Last Reviewed 05/07/18 @ 15:29 by Emilie Marie) MDS (myelodysplastic syndrome), low grade (Chronic) HTN (hypertension) (Chronic) Hyperlipidemia (Chronic) Hypertension (Chronic) Hyperlipemia (Chronic) Type 2 diabetes mellitus (Chronic) COPD (chronic obstructive pulmonary disease) (Chronic) Smoking Status: Former smoker Review of Systems - Review of Systems General: Denies: Fever, Night Sweats, Fatigue Cardiovascular: Reports: Shortness of Breath, Shortness of Breath with Exertion, Peripheral Edema. Denies: Chest Discomfort, Orthopnea, PND, Palpitations, Lightheadedness, Dizziness, Near Syncope, Syncope Respiratory: Denies: Cough, Sputum Production, Hemoptysis Gastrointestinal: Denies: Hematemesis, Hematochezia, Melena Genitourinary: Denies: Dysuria, Hematuria Skin: Denies: Rash Subjectve: Patient resting comfortably. No acute distress. Objective: Vital Signs Temp Pulse Resp BP Pulse Ox 97.9 F 81 18 161/82 H 99 05/26/18 11:33 05/26/18 13:25 05/26/18 13:25 05/26/18 11:33 05/26/18 13:25 Oxygen Flow Rate (L/min) 2 Oxygen Delivery Method Nasal Cannula Weight: 233 lb Body Mass Index (BMI) 33.4 General: Awake, Alert, Oriented x 3 HEENT: PERRL, EOMI, Sclera Non Icteric Neck: Supple, Good ROM, No Lymph Node Enlargement Lungs: Rales - Shan Bases Cardiovascular: Regular Rhythm, Normal S1, Normal S2, No Rubs, No Gallops Murmur Murmur: Grade 2/6, Holosystolic Vascular: No Carotid Bruits, Normal Femoral Pulses, Normal Radial Pulses, Normal Dorsalis Pedal Pulse, Normal Posterior Tibial Pulses Abdomen: Bowel Sounds Present, Soft, Non Tender, No HSM, No Organomegaly Extremities: No Cyanosis, No Clubbing, Bilateral Edema +2 Neurological: No Focal Motor or Sensory Deficit 05/26/18 12:30: WBC 3.4 L, RBC 3.28 L, Hgb 9.3 L, Hct 28.1 L, MCV 85.7, MCH 28.4, MCHC 33.1, RDW 22.3 H, RDW Differential 63.7 H, Plt Count 76 L, Immature Gran % (Auto) 0.600, Neut % (Auto) 68.6, Lymph % (Auto) 23.9, [place] % (Auto) 6.0, Eos % (Auto) 0.6, Baso % (Auto) 0.3, Absolute Neuts (auto) 2.3, Total Counted Not Reportable 05/26/18 12:30: Sodium 136, Potassium 4.5, Chloride 105, Carbon Dioxide 27.0, Anion Gap 4 L, BUN 22 H, Creatinine 1.55 H, Est GFR (MDRD) Af Amer 56 L, Est GFR (MDRD) Non-Af 46 L, BUN/Creatinine Ratio 14.2, Glucose 102, Calcium 8.4 L, Troponin I 0.055 H 05/26/18 12:30: B-Natriuretic Peptide 282.3 H Rhythm: EKG: As above ECHO: Pending Stress Test: Cardiac Cath: Pending PCI: CT Surgery: Holter monitor: EPS: PPM: CXR: Chest CT Scan: Assessment/Plan 1. Dyspnea on exertion: The patient has signs and symptoms of dyspnea on exertion with associated bilateral lower extremity edema, shortness of breath, who is unable to walk from his bed to the bathroom without becoming short of breath. Although the patient had a negative stress test in December 2017, his EKG suggest possible old inferior and anterior wall myocardial infarction. At this point I recommend Lasix 40 mg IV twice daily and attempt to begin diuresis. He does have chronic renal insufficiency, may require ongoing diuretic therapy going forward. As a way of better evaluating his congestive heart failure I would not recommend repeat stress testing, but would recommend a diagnostic left and right heart catheterization with Dr. Reynolds tomorrow. Patient will continue aspirin, and will be loaded with Plavix 3 mg x1 now followed by 75 mg p.o. daily. I have spoken with Dr. Reynolds, who is agreed to proceed with left and right heart catheterization tomorrow morning. In the meantime he will continue to be ruled out for myocardial infarction. Repeat echocardiogram is pending. 2. Hyperlipidemia: Given the patient's diabetes and age he requires aggressive LDL reduction. Would recommend a repeat lipid profile. His LDL should be less than 70. 3. Chronic renal insufficiency: The patient has evidence of a creatinine clearance of at least 56, which may be overestimated after he diuresis. He may require renal consultation. 4. Thank you very much for the opportunity to participate in the cardiac care of your patient. Consultation time took place between 3 PM and 3:30 PM. Code Visit Inpatient E&M: 23133 Init Hosp L2
[2018-05-26] MEDS: Furosemide 40 MG/4 ML Vial IV (15:40)
[2018-05-26] MEDS: Clopidogrel Bisulfate 300 MG Tablet PO (15:40)
--- NOTE | 2018-05-26 16:38 | CHAPLAIN ---
Type of Pastoral Visit _x__ Initial Visit ___ Follow-up Visit ___ On-call Visit ___ General Patient Visit ___ Spiritual Assessment ___ Family Conference ___ Bereavement ___ Rapid Response ___ Code Blue ___ Other (describe below) Pastoral Care Referral From _x__ Patient ___ Family ___ Nurse ___ Physician ___ Employee Benefits Administrator ___ Belt Fixer ___ Other (describe below) Sacrament/Intervention _x__ Active listening ___ Anointing ___ Methodist ___ Bereavement ___ Communion _x__ Bessy exploration ___ _x__ Life review ___ Prayer ___ Reconciliation ___ Sacrament of Sick ___ Supportive presence ___ Wedding ___ Other (describe below) Pastoral Comments patient was talkative; pt at first said he was ok when spiritual care was introduced to him; however as patient talked about his life and hobbies he revealed that he had spiritual questions about his life and about ; pt went to congregational as a child but has not as an adult; pt relies on his own thinking; pt has been multiple times but is not currently ; patient took some inspirational reading material that was offered to him; offered future support to patient as needed
[2018-05-26] MEDS: Ipratropium 0.5 MG/2.5 ML SOLUTION INHALATION (19:12)
[2018-05-26] MEDS: guaiFENesin 1,200 MG Tablet 1200 MG PO (21:31)
[2018-05-26] MEDS: Atorvastatin Calcium 10 MG Tablet PO (21:31)
[2018-05-27] VITALS (24 sets, daily range): BP systolic 99–148; BP diastolic 50–89; PULSE 71–96; RESP 14–18; TEMP 36.4–37.1; O2SAT 91–99
[2018-05-27] MEDS: Metoprolol(XL)Succ 25 MG Tablet PO (05:37)
[2018-05-27] MEDS: Clopidogrel Bisulfate 75 MG Tablet PO (05:37)
[2018-05-27] MEDS: Lisinopril 2.5 MG Tablet PO (05:37)
[2018-05-27] MEDS: 0.9% Normal Saline 1,000 ML 15 ML IV (05:37)
[2018-05-27 05:50] LABS: Bacteria 0 SEEN /hpf (None Seen); Mucous, Urine 0 SEEN /hpf (<or=2+); Red Blood Cells-Urine 0 SEEN /hpf (0-5); Squamous Epithelial Cells - UA 0 SEEN /hpf (0-5); White Blood Cells 0 SEEN /hpf (0-5)
[2018-05-27 05:51] LABS: Color, Urine Yellow (Yellow); Glucose, Dipstick Normal (Normal); Ketone-Dipstick Negative (Negative); Leukocyte Esterase-Dipstick Negative /ul (Negative); Nitrite-Dipstick Negative (Negative); Occult Blood-Urine 10 /ul (Negative); Protein-Dipstick 30 mg/dl (Negative); Specific Gravity, Urine 1.015 (1.002-1.030); Urine Bilirubin Dipstick Negative (Negative); Urine Clarity Clear (Clear); Urine Urobilinogen Normal (Normal)
--- NOTE | 2018-05-27 05:55 | EKG12_ITS ---
Test Reason : AM EKG Blood Pressure : / mmHG Vent. Rate : 084 BPM Atrial Rate : 127 BPM P-R Int : 000 ms QRS Dur : 086 ms QT Int : 376 ms P-R-T Axes : 000 -44 019 degrees QTc Int : 444 ms Atrial fibrillation Left axis deviation Low voltage QRS Cannot rule out Anteroseptal infarct , age undetermined Abnormal ECG When compared with ECG of 26-MAY-2018 11:36, MANUAL COMPARISON REQUIRED, DATA IS UNCONFIRMED Confirmed by SHELBY CORADO, BG ([id number]), film editor QUINN BLAIR ([id number]) on 05/31/2018 4:03:36 PM Referred By: Mic Khan Confirmed By:BG RYAN MD
[2018-05-27 06:50] LABS: International Normalized Ratio 1.2; Partial Thromboplast Time 33.2 Seconds (24.1-36.2); Prothrombin Time (Protime)PT. 15.6 SECONDS (11.7-14.9)
[2018-05-27 06:54] LABS: Absolute Neutrophil Count 2.1 X10^3/uL (2.0-7.7); Basophil# 0.01 X10^3/uL; Basophil% 0.3 % (0-1); Eosinophil# 0.03 X10^3/uL; Eosinophils% 0.9 % (0-5); Hematocrit 29.1 % (40-54); Hemoglobin 9.5 g/dl (13.0-16.5); Lymphocyte % 27.4 % (19-41); Mean Corp Hgb Conc 32.6 g/gl (32-36); Mean Corpuscular Hgb 28.3 pg (27.0-32.0); Mean Corpuscular Volume 86.6 fL (80-94); Monocyte# 0.25 X10^3/uL; Monocyte% 7.6 % (0-10); Neutrophil # 2.08 X10^3/uL (2.7-7.7); Neutrophil % 63.2 % (47-70); Platelet Count 72 K/mm3 (150-450); RBC Distribution Width CV 22.4 % (11.6-14.6); RBC Distribution Width SD 64.5 fl (35.1-43.9); Red Blood Count 3.36 M/mm3 (4.6-6.2); White Blood Count 3.3 K/mm3 (4.4-11.0)
[2018-05-27 06:56] LABS: Bedside Glucose 107 mg/dL (70-110)
[2018-05-27 06:57] LABS: Differential Indicated SCAN CRITERIA MET; POSITIVE COUNT NO; POSITIVE DIFFERENTIAL NO; POSITIVE MORPHOLOGY YES
[2018-05-27 07:07] LABS: Anion Gap 5 (5-15); BUN 20 mg/dL (7-18); BUN/Creat Ratio 14.1 RATIO (10-20); Calcium,Total 8.4 mg/dL (8.5-10.1); Chloride 104 mmol/L (98-107); Creatinine, Serum 1.42 mg/dL (0.70-1.30); EST Glomerular Filtration Rate 51 mL/min (>60); Est Glom Filt Rate - Afr Amer 61 mL/min (>60); Estimated Creatinine Clearance 43.45 ml/min; Glucose 106 mg/dL (74-106); Potassium 4.1 mmol/L (3.5-5.1); Sodium Level 138 mmol/L (136-145)
--- NOTE | 2018-05-27 09:19 | CL.I_ITS ---
Patient Name: BELEN BRIGGS Study Date: 05/27/2018 Performing: Shawn Dickson MD Ht: 70.86 inches 180 cm : 1935 Wt: 227.08 lbs 103 kg Age: 82 Gender: male BSA: 2.22 PROCEDURE(S) PERFORMED DC11-AO ROOT ANGIO WITH HEART CATH [id number], CORONARY OR GRAFT, INITIAL VESSEL CLINICAL PROFILE AND CO-MORBIDITIES Indications: Suspected CAD Heart Failure: None Stress/Imaging Stress Test w/SPECT MPI: Yes Result: Negative Stress Test with SPECT MPI: Negative Angina Classification Anginal Classification w/in 2 Weeks: CCS III CAD Presentations: Unstable angina. Other: Dyspnea on exertion; afib Comorbidities/Risk Factors: Hypertension Dyslipidemia Diabetes Mellitus: Diabetes Therapy: Oral CONCLUSIONS Negative FFR of proximal LAD at 0.89 RECOMMENDATIONS Highly recommend quitting all tobacco products Follow up with primary gore cutter Risk factor modification ASA Indefinitley Plavix for at least 12 months Routine post interventional care Refer for Outpatient Cardiac Rehab Manual sheath removal per protocol Follow up with Dr. Reynolds HR and rhythm control; consider DCCV. D/c Plavix. Manual sheath removal. DESCRIPTION OF PROCEDURE The patient arrived to the procedure lab. The risks and benefits of the procedure as well as a full d escription of our services here and current unavailability of surgical backup were fully explained to the patient and/or their significant other prior to the catheterization. The Timeout was completed, verifying the correct patient and procedure. The patient's procedural site was prepped and draped in the usual fashion. Local anesthetic was given subcutaneously to right groin region with Lidocaine 2% Using a modified Seldinger technique,arterial access was obtained via the right femoral artery, a 4Fr sheath was insertedVenous access was obtained via the right femoral vein, a 7Fr sheath was inserted. A 7Fr thermal dilution catheter was inserted and right heart pressures were recorded, it was then ad vanced to PA position for cardiac outputs. O2 saturations were then obtained. Thermal dilution cardia c outputs were then recorded. Left Ventriculography was performed in CHU projection using a 4 Fr. Pig tail catheter. LV to AO pullback pressures were then recorded. Simultaneous pressures were then recor ded. The Thermal dilution catheter was then removed. Left Coronary Artery selective angiography was p erformed in multiple views using a 4 Fr. JL5 catheter. Ascending (root) aorta selective angiography w as then performed in single view with a 4 fr Pigtail. Ascending (root) aorta selective angiography wa s then performed in single view with a 4 fr Pigtail.The images were reviewed and options discussed. A decision was then made to proceed with an Intervention, IVUS or other adjunct procedure. Arterial sheath was exchanged for a 6 Fr Sheath. EBU 3.75 Guide catheter was inserted and engaged int o the LCA. The FFR/iFR wire was inserted. FFR Ratio Baseline: 0.99 Adenosine was then given per fady col. Pressures and FFR/iFR were then recorded. FFR Ratio post Adenosine: 0.89 The FFR/iFR wire was th en removed. INTERVENTION INFORMATION LESION SITE: LAD (Mid) Pre Stenosis: 60 % Pre intervention ALLIE flow: 3 PROCEDURE: FFR Post Stenosis: 60 % Post intervention ALLIE flow: 3 Lesion Devices: [email or web address] ( Formerly [employer] Coronary FFR Wire [employer] 6 Fr EBU3.75 100cm Guide Catheter COMPLICATIONS No Complications PROCEDURE MEDICATIONS Versed 1 mg IV Oxygen: 0 L/min via nasal cannula Oxygen: 2 L/min via nasal cannula Baby Aspirin (81mg) 1 Tabs PO 05/27/2018 07:28:09 Adenosine drip for FFR 28.7 ml IV @ 05/27/2018 09:08:18 Heparin 6000 unit(s) IV 05/27/2018 09:00:58 Nitro 200 mcg IC 05/27/2018 09:02:48 IV Fluids: .9 NaCl increased to WO ml/hr 05/27/2018 09:02:41 SUMMARY OF HEMODYNAMIC DATA Time AIR REST ECG 07:25:07 RA /14 (11) SV 07:56:24 RV 50/6, 12 07:56:40 PW /33 (24) PV 07:57:22 PA 60/20 (34) PA 07:57:38 LV 141/-4, 20 08:04:14 PW /35 (25) 08:04:14 LV 136/-6, 19 08:04:20 PW /33 (23) 08:04:20 LV 129/3, 22 08:05:21 PW /34 (24) 08:05:21 LV 124/0, 19 08:05:27 PW /16 (24) 08:05:27 LVp 125/7, 23 08:05:50 AOp 127/59 (86) 08:05:55 AO 132/61 (90) SA 08:06:12 PA 54/21 (32) 08:06:23 RV 44/3, 12 08:06:34 RA /17 (13) 08:06:45 AO 103/69 (88) 08:10:09 Type SV CO (l/m) CI (l/m/ HR Time AIR REST Thermal 77.00 7.39 3.33 96 07:25:07 Alexy 85.00 8.16 3.68 96 07:25:07 Label % O2 Pres/Loc Time AIR REST IVC 65 SV 08:08:26 SVC 57 08:08:30 AO 93 PV 08:08:37 PA 57 PA 08:08:49 Signed By Shawn Dickson MD On 05/27/2018 09:19:17 Shawn Dickson MD
[2018-05-27 11:30] LABS: ACT Activated Clotting Time 186 sec (74-137)
--- NOTE | 2018-05-27 12:05 | NURSING ---
VSA not completed on time due to pt off floor for heart cath. will check vital signs when pt arrives.
[2018-05-27] MEDS: 0.9% Normal Saline 1,000 ML 150 ML IV (13:00)
[2018-05-27] MEDS: Amiodarone 200 MG Tablet PO ×2 (13:13→21:10)
[2018-05-27] MEDS: Ipratropium 0.5 MG/2.5 ML SOLUTION INHALATION ×2 (13:27→19:06)
--- NOTE | 2018-05-27 14:37 | PCM.PROGNOTE ---
<Pamela Conte - Last Filed: 05/27/18 15:03> Patient Problems: Active and Suspected Problems (Last Reviewed 05/07/18 @ 15:29 by Emilie Marie) Acute on chronic diastolic CHF (congestive heart failure) (Acute) Subjective: Patient seen and examined. Underwent cardiac catheterization with FFR. Negative FFR of proximal LAD. No intervention required. Patient denies chest pain. Denies current complaints. - Physical Exam General: Alert, Oriented x3, Cooperative, No apparent distress HEENT: Atraumatic, PERRLA, EOMI, Normocephalic Neck: Supple, No JVD, Negative Carotid Bruits Lungs: Clear to auscultation, Diminished Cardiovascular: Regular rate, Regular Rhythm, Normal S1, Normal S2, Murmur Abdomen: Bowel Sounds Present, Soft, Non Tender, Non-Distended, Obese Extremities: No clubbing, No cyanosis, Capillary Refill Less than 3 Seconds, Edema - Bilateral extremity Skin: No rashes, No breakdown Musculoskeletal: No Tenderness to Palpation of Joints or Extremities Neurological: Cranial nerves II-XII grossly intact, Neuro grossly intact Psych/Mental Status: Normal Affect, Appropriate Vital Signs Temp Pulse Resp BP Pulse Ox 98.1 F 87 18 117/89 H 93 05/27/18 05:46 05/27/18 14:00 05/27/18 14:00 05/27/18 14:00 05/27/18 14:00 Oxygen Flow Rate (L/min) 2 Oxygen Delivery Method Room Air Weight: 225 lb 15.581 oz Body Mass Index (BMI) 31.5 Intake and Output for Last 24 Hours 05/25/18 05/26/18 05/27/18 23:59 23:59 23:59 Intake Total 240 / 240 360 / 360 Output Total 1200 / 1200 1550 / 1550 Balance -960 / -960 -1190 / -1190 Laboratory Tests Past 24 Hrs 05/27/18 05/27/18 05/27/18 05:45 05:55 05:55 WBC 3.3 L RBC 3.36 L Hgb 9.5 L Hct 29.1 L MCV 86.6 MCH 28.3 MCHC 32.6 RDW 22.4 H RDW Differential 64.5 H Plt Count 72 L Immature Gran % (Auto) 0.600 Neut % (Auto) 63.2 Lymph % (Auto) 27.4 [place] % (Auto) 7.6 Eos % (Auto) 0.9 Baso % (Auto) 0.3 Absolute Neuts (auto) 2.1 Absolute Lymphs (auto) 0.90 Total Counted Not Reportable Differential Comment COMMENT PT INR APTT Activated Clotting Time Sodium 138 Potassium 4.1 Chloride 104 Carbon Dioxide 29.0 Anion Gap 5 BUN 20 H Creatinine 1.42 H Estim Creat Clear Calc 43.45 Est GFR (MDRD) Af Amer 61 Est GFR (MDRD) Non-Af 51 L BUN/Creatinine Ratio 14.1 Glucose 106 Calcium 8.4 L Urine Color Yellow Urine Clarity Clear Urine pH 6.0 Ur Specific [place] 1.015 Urine Protein 30 H Urine Glucose (UA) Normal Urine Ketones Negative Urine Occult Blood 10 H Urine Nitrite Negative Urine Bilirubin Negative Urine Urobilinogen Normal Ur Leukocyte Esterase Negative Urine RBC 0 SEEN Urine WBC 0 SEEN Ur Squamous Epith Cells 0 SEEN Urine Bacteria 0 SEEN Urine Mucus 0 SEEN 05/27/18 05/27/18 05:55 10:38 WBC RBC Hgb Hct MCV MCH MCHC RDW RDW Differential Plt Count Immature Gran % (Auto) Neut % (Auto) Lymph % (Auto) [place] % (Auto) Eos % (Auto) Baso % (Auto) Absolute Neuts (auto) Absolute Lymphs (auto) Total Counted Differential Comment PT 15.6 H INR 1.2 APTT 33.2 Activated Clotting Time 186 H Sodium Potassium Chloride Carbon Dioxide Anion Gap BUN Creatinine Estim Creat Clear Calc Est GFR (MDRD) Af Amer Est GFR (MDRD) Non-Af BUN/Creatinine Ratio Glucose Calcium Urine Color Urine Clarity Urine pH Ur Specific [place] Urine Protein Urine Glucose (UA) Urine Ketones Urine Occult Blood Urine Nitrite Urine Bilirubin Urine Urobilinogen Ur Leukocyte Esterase Urine RBC Urine WBC Ur Squamous Epith Cells Urine Bacteria Urine Mucus POC Glucose 05/27/18 06:41 POC Glucose 107 Medical Necessity - Tobacco Use Smoking Status: Former smoker Tobacco Use: Cigarettes Assessment/Plan All Active Problems (Last Reviewed 05/07/18 @ 15:29 by Emilie Marie) Acute on chronic diastolic CHF (congestive heart failure) (Acute) Pain on swallowing (Acute) Premature atrial contractions (Acute) Hypotension (Acute) Paroxysmal atrial tachycardia (Acute) Paroxysmal ventricular tachycardia (Acute) Premature ventricular contraction (Acute) Palpitations (Acute) 1. Acute on chronic diastolic CHF-BNP on admission 282. Chest x-ray on admission with small right pleural effusion. Stress test December 2017 which was normal. LVEF 54%. Patient underwent cardiac catheterization with FFR due to ongoing dyspnea with exertion. Negative FFR of proximal LAD. Patient did not require intervention. Cardiology recommending aspirin indefinitely, Plavix for 12 months. Patient follows with Dr. Reynolds. Continue Lasix 40 mg IV twice daily. Strict I&O. Daily weight. Continue lisinopril. Echocardiogram pending. Cardiology recommending pulmonary consult for suspected pulmonary hypertension as cause of ongoing dyspnea with exertion. Patient has upcoming appointment with Dr. Connolly 06/17/2018 for COPD. Echocardiogram October 2016 did not mention pulmonary pressures. 2. Atrial fibrillation with RVR-rate controlled. Continue metoprolol regimen. Cardiology following. Recommending initiation of aspirin and Plavix. 3. Low-grade MDS- Follows with Dr. Prah. Olivera. Consult oncology given recommended addition of plavix/aspirin. 4. Chronic kidney disease stage III-stable, trend BMP. 5. Chronic COPD-no acute exacerbation. 6. Type 2 diabetes mellitus-hold home metformin regimen. Accu-Cheks before meals at bedtime with sliding scale insulin. 7. Hypertension-stable, continue home regimen including lisinopril, metoprolol. 8. BPH-continue Flomax regimen. DVT prophylaxis-hold anticoagulation secondary to #3. SCDs. This patient was seen by MANUELA Downey under the supervision of Dr. Khan. <Mic Khan - Last Filed: 05/27/18 16:31> - Physical Exam Vital Signs Temp Pulse Resp BP Pulse Ox 98.1 F 85 18 121/78 H 93 05/27/18 05:46 05/27/18 15:28 05/27/18 15:00 05/27/18 15:00 05/27/18 15:00 Oxygen Flow Rate (L/min) 2 Oxygen Delivery Method Room Air Weight: 102.5 kg Body Mass Index (BMI) 31.5 Intake and Output for Last 24 Hours 05/25/18 05/26/18 05/27/18 23:59 23:59 23:59 Intake Total 240 / 240 360 / 360 Output Total 1200 / 1200 1550 / 1550 Balance -960 / -960 -1190 / -1190 Laboratory Tests Past 24 Hrs 05/27/18 05/27/18 05/27/18 05:45 05:55 05:55 WBC 3.3 L RBC 3.36 L Hgb 9.5 L Hct 29.1 L MCV 86.6 MCH 28.3 MCHC 32.6 RDW 22.4 H RDW Differential 64.5 H Plt Count 72 L Immature Gran % (Auto) 0.600 Neut % (Auto) 63.2 Lymph % (Auto) 27.4 [place] % (Auto) 7.6 Eos % (Auto) 0.9 Baso % (Auto) 0.3 Absolute Neuts (auto) 2.1 Absolute Lymphs (auto) 0.90 Total Counted Not Reportable Differential Comment COMMENT PT INR APTT Activated Clotting Time Specimen Type pH Bicarbonate Actual POC Total CO2 Base Excess O2 Saturation ABG pCO2 ABG pO2 VBG pH VBG pO2 VBG O2 Sat (Calc) VBG O2 Content VBG Base Excess POC Mix VBG pCO2 Pt Tmp Sodium 138 Potassium 4.1 Chloride 104 Carbon Dioxide 29.0 Anion Gap 5 BUN 20 H Creatinine 1.42 H Estim Creat Clear Calc 43.45 Est GFR (MDRD) Af Amer 61 Est GFR (MDRD) Non-Af 51 L BUN/Creatinine Ratio 14.1 Glucose 106 Calcium 8.4 L Urine Color Yellow Urine Clarity Clear Urine pH 6.0 Ur Specific [place] 1.015 Urine Protein 30 H Urine Glucose (UA) Normal Urine Ketones Negative Urine Occult Blood 10 H Urine Nitrite Negative Urine Bilirubin Negative Urine Urobilinogen Normal Ur Leukocyte Esterase Negative Urine RBC 0 SEEN Urine WBC 0 SEEN Ur Squamous Epith Cells 0 SEEN Urine Bacteria 0 SEEN Urine Mucus 0 SEEN 05/27/18 05/27/18 05/27/18 05:55 07:55 07:58 WBC RBC Hgb Hct MCV MCH MCHC RDW RDW Differential Plt Count Immature Gran % (Auto) Neut % (Auto) Lymph % (Auto) [place] % (Auto) Eos % (Auto) Baso % (Auto) Absolute Neuts (auto) Absolute Lymphs (auto) Total Counted Differential Comment PT 15.6 H INR 1.2 APTT 33.2 Activated Clotting Time Specimen Type ESME ESME pH Bicarbonate Actual POC Total CO2 Base Excess O2 Saturation ABG pCO2 ABG pO2 VBG pH 7.41 7.40 VBG pO2 34 30 VBG O2 Sat (Calc) 65 57 VBG O2 Content 28 29 VBG Base Excess 3 3 POC Mix VBG pCO2 Pt Tmp 42.7 44.7 Sodium Potassium Chloride Carbon Dioxide Anion Gap BUN Creatinine Estim Creat Clear Calc Est GFR (MDRD) Af Amer Est GFR (MDRD) Non-Af BUN/Creatinine Ratio Glucose Calcium Urine Color Urine Clarity Urine pH Ur Specific [place] Urine Protein Urine Glucose (UA) Urine Ketones Urine Occult Blood Urine Nitrite Urine Bilirubin Urine Urobilinogen Ur Leukocyte Esterase Urine RBC Urine WBC Ur Squamous Epith Cells Urine Bacteria Urine Mucus 05/27/18 05/27/18 05/27/18 08:02 08:05 09:10 WBC RBC Hgb Hct MCV MCH MCHC RDW RDW Differential Plt Count Immature Gran % (Auto) Neut % (Auto) Lymph % (Auto) [place] % (Auto) Eos % (Auto) Baso % (Auto) Absolute Neuts (auto) Absolute Lymphs (auto) Total Counted Differential Comment PT INR APTT Activated Clotting Time 246 H Specimen Type ESME ART pH 7.43 Bicarbonate Actual 24.9 POC Total CO2 26 Base Excess 1 O2 Saturation 93 L ABG pCO2 37.2 ABG pO2 66 L VBG pH 7.41 VBG pO2 30 VBG O2 Sat (Calc) 57 VBG O2 Content 29 VBG Base Excess 3 POC Mix VBG pCO2 Pt Tmp 43.9 Sodium Potassium Chloride Carbon Dioxide Anion Gap BUN Creatinine Estim Creat Clear Calc Est GFR (MDRD) Af Amer Est GFR (MDRD) Non-Af BUN/Creatinine Ratio Glucose Calcium Urine Color Urine Clarity Urine pH Ur Specific [place] Urine Protein Urine Glucose (UA) Urine Ketones Urine Occult Blood Urine Nitrite Urine Bilirubin Urine Urobilinogen Ur Leukocyte Esterase Urine RBC Urine WBC Ur Squamous Epith Cells Urine Bacteria Urine Mucus 05/27/18 05/27/18 05/27/18 10:38 11:35 12:04 WBC RBC Hgb Hct MCV MCH MCHC RDW RDW Differential Plt Count Immature Gran % (Auto) Neut % (Auto) Lymph % (Auto) [place] % (Auto) Eos % (Auto) Baso % (Auto) Absolute Neuts (auto) Absolute Lymphs (auto) Total Counted Differential Comment PT INR APTT Activated Clotting Time 186 H 175 H 169 H Specimen Type pH Bicarbonate Actual POC Total CO2 Base Excess O2 Saturation ABG pCO2 ABG pO2 VBG pH VBG pO2 VBG O2 Sat (Calc) VBG O2 Content VBG Base Excess POC Mix VBG pCO2 Pt Tmp Sodium Potassium Chloride Carbon Dioxide Anion Gap BUN Creatinine Estim Creat Clear Calc Est GFR (MDRD) Af Amer Est GFR (MDRD) Non-Af BUN/Creatinine Ratio Glucose Calcium Urine Color Urine Clarity Urine pH Ur Specific [place] Urine Protein Urine Glucose (UA) Urine Ketones Urine Occult Blood Urine Nitrite Urine Bilirubin Urine Urobilinogen Ur Leukocyte Esterase Urine RBC Urine WBC Ur Squamous Epith Cells Urine Bacteria Urine Mucus POC Glucose 05/27/18 06:41 POC Glucose 107 Assessment/Plan This patient was seen in conjunction with MANUELA Downey. I have independently interviewed and examined the patient and reviewed pertinent historical, laboratory, and other data. Please refer to MANUELA Downey note for details of this patient's presentation, findings, and recommendations. I have reviewed MANUELA Downey note and concur with documented findings. In brief, patient is a 82-year-old gentleman who was admitted with progressive shortness of breath and assessment of acute on chronic diastolic heart failure made admitted to a monitored bed for further management. Cardiology was consulted patient underwent left heart catheterization on 05/27/2018. Patient was found to have a 60% proximal LAD lesion with a reported negative FFR Physical Examination: GENERAL: cooperative HEENT: Atraumatic; EYES; Anicteric, NECK; supple, normal thyroid, RESPIRATORY: Diminished to auscultation bilaterally, CARDIOVASCULAR: Regular S1 S2, GI: soft, non-tender, normoactive bowel sounds, : No Renal angle tenderness; NEURO: Awake; no lateralizing signs. SKIN: No Rash Assessment: 1. Acute on chronic diastolic 2. Coronary artery disease left heart catheterization on 05/27/2018 demonstrated a 60% proximal LAD lesion with a reported negative FFR 3. Paroxysmal atrial fibrillation 4. Essential hypertension 5. Myelodysplastic syndrome 6. BPH 7. Chronic COPD- 8. Diabetes mellitus type 2 Recommendations: 1. I have discussed the results of my overview and impressions with the patient 2. Options for management were reviewed Code Visit Inpatient E&M: 63655 Subs Hosp L3
--- NOTE | 2018-05-27 14:40 | CASEMGMT ---
EVERETT POLK INITIAL REVIEW ASSESSMENT D/C PLAN: Home. Face to Face with patient for initial transition planning/care coordination assessment. EVERETT POLK introduced self and role at [facility]. Care providers, pharmacy, and demographics verified. Pt states he just recently applied for VA benefits but has not been approved yet. PCP: Juan Grimaldo Pharmacy: [facility] Insurance: [facility] Prescription Benefit: yes Living Will/HPOA: Has both living will and HPOA. Son, Chepe Lambert is HPOA. Denies wanting any further information. Living Arrangements: Lives alone. 2-story home. Lives on 1st floor. 2 steps to enter. Rents upper level out. Transportation: Pt states he still drives. Son able to help provide transportation if he would need it. DME: Independent with ambulation. Has tub bench/shower chair but states he does not use it. Has grab bars outside of shower and hand held shower. States would like to look into getting a medical alert button. Information provided. Denies other DME needs. HHC: Denies need for HHC. D/C PLAN: Home. Pt states he wishes to return home. Denies having any further questions or needs. CM to follow for any further discharge planning needs that may arise. Mike BANGURA RN, CM
[2018-05-27 14:41] LABS: Blood Gas Specimen Type VEN; VBG BASE EXCESS 3 mmol/L (-1.0-3.5); VBG Bicarbonate 28 mmol/L (22-26); VBG Oxygen Content 29 mmol/L (23-33); VBG PO2 30 mmHg (25-40); VBG SO2 57 % (50-70); VBG pCO2 44.7 mmHg (41-51)
[2018-05-27 14:41] LABS: Blood Gas Specimen Type VEN; VBG BASE EXCESS 3 mmol/L (-1.0-3.5); VBG Bicarbonate 28 mmol/L (22-26); VBG Oxygen Content 29 mmol/L (23-33); VBG PO2 30 mmHg (25-40); VBG SO2 57 % (50-70); VBG pCO2 43.9 mmHg (41-51); VBG pH 7.41 (7.32-7.42)
[2018-05-27 14:41] LABS: ACT Activated Clotting Time 246 sec (74-137)
[2018-05-27 14:41] LABS: Blood Gas Specimen Type VEN; VBG BASE EXCESS 3 mmol/L (-1.0-3.5); VBG Bicarbonate 27 mmol/L (22-26); VBG Oxygen Content 28 mmol/L (23-33); VBG PO2 34 mmHg (25-40); VBG SO2 65 % (50-70); VBG pCO2 42.7 mmHg (41-51); VBG pH 7.41 (7.32-7.42)
[2018-05-27 14:41] LABS: ACT Activated Clotting Time 175 sec (74-137)
[2018-05-27 14:41] LABS: ACT Activated Clotting Time 169 sec (74-137)
[2018-05-27 14:41] LABS: Base Excess 1 mmol/L (-2 to +2); Bicarbonate 24.9 mmol/L (22-26); Blood Gas Specimen Type ART; PO2 66 mmHG (75-100); SO2 93 % (95-99); Total Carbon Dioxide 26 mmol/L; pCO2 37.2 mmHg (35-45); pH 7.43 (7.35-7.45)
--- NOTE | 2018-05-27 15:33 | ONC.CON.INP2 ---
- Problem List (1) MDS (myelodysplastic syndrome), low grade Status: Chronic (2) Thrombocytopenia Status: Chronic (3) Anemia Status: Chronic Consult Referring Physician: Dr. Dickson Consult Results: MDS Subjective Date of Service:: 05/27/18 Chief Complaint: Dyspnea and lower extremities edema History of Present Illness: Patient is an 82-year-old gentleman admitted with a new onset congestive heart failure. Hematology consult requested for clearance to use antiplatelet agents (cardiology recommendation is long-term aspirin and 1 year of Plavix). From the hematology consult aspect patient has been under the care of Dr. Chavarria for a very low risk MDS with a chronic slowly progressive anemia and moderately severe thrombocytopenia. He has not required any blood product transfusion nor active treatment for his MDS but is on watchful expectancy. Past Medical History: Chronic Problems (Last Reviewed 05/07/18 @ 15:29 by Emilie Marie) Anemia (Chronic) Thrombocytopenia (Chronic) MDS (myelodysplastic syndrome), low grade (Chronic) HTN (hypertension) (Chronic) Hyperlipidemia (Chronic) Hypertension (Chronic) Hyperlipemia (Chronic) Type 2 diabetes mellitus (Chronic) COPD (chronic obstructive pulmonary disease) (Chronic) Past Medical/Surgical History: Past Medical History - Most Recent Inpatient Visit Past Medical History Start: 05/26/18 15:18 Text: Status: Complete Freq: ONCE Protocol: Document 05/26/18 15:18 JJL (Rec: 05/26/18 15:27 [id number]) BMI Required to complete PMH What is Patient's BMI 31.5 Past Medical History Unable History Recalled No Query Text:Pt Unable/Family Not Present Neurologic Medical History Hx Stroke/TIA No Hx Dementia/Alzheimer's No Hx Parkinson's Disease No Hx Seizures No Hx Multiple Sclerosis No Hx Migraines No Cardiac Medical History VTE Present on Admission No Hx of Deep Vein Thrombosis/VTE/PE No Hx Hypertension Yes Hx Chest Pain/Angina No Hx Heart Attack No Hx Cardiac Surgery/Stents/Etc. No Hx Heart Failure Yes Hx Pacemaker/AICD No Hx Irregular Heartbeat and/or Afib Yes Hx Anticoagulant Therapy Yes Query Text:(Coumadin, Aspirin, Plavix, Xarelto, etc.) Hx Pain in Legs when Walking/Leg Cramps No Respiratory Medical History Hx COPD Yes Hx Emphysema Yes Hx Smoking Yes Smoking Status Former smoker Tobacco Use Cigarettes Years Smoking 20 Packs Smoked per Day 1 Hx Smoking Cessation Date 1984 Hx Smoking Cessation Counseling No Hx Smoking Exposure No Hx Tobacco Use in last 12 months No Hx of Pipe Smoking No Hx of Cigar Smoking No Hx Sleep Apnea No Do you snore loudly (louder than talking No or can be heard through closed doors)? Do you often feel tired/ fatigued/ No sleepy during daytime? Has anyone observed you stop breathing No during sleep? STOP Results Negative GI Medical History Hx Ulcer No Hx Hepatitis No Hx Cirrhosis No Hx GI Bleed No Hx Unplanned Weight Loss No Genitourinary Medical History Indwelling Catheter in Place on Arrival/ No Admission Hx Renal Disease No Hx Dialysis No Musculoskeletal History Hx Arthritis Yes Hx Rheumatoid Arthritis No Endocrine Medical History Hx Diabetes Yes Hx Thyroid Disease No Hematologic Medical History Hx of Blood Transfusion No Hx of Transfusion in last 3 Months No Ever experience any problems with No transfusion(s)? Hx of Preganancy in last 3 Months N/A Nurse Filling Out Transfusion & JLAMP Questions: Date: 05/26/18 Time: 15:26 Psycho/Social Medical History Hx Depression No Hx Anxiety No Hx Behavior Disorder No Hx Alcohol Use No Hx Substance Use No Other Medical History Hx Blood Disorders No Hx Anemia No Hx Cancer No Hx Drug Resistant Organism No Wound/Pressure Injury Present on Arrival No /Admission Query Text:If yes, chart assessment in Shift/Clinical Findings Central Line/PICC/VAD Present on Arrival No /Admission Antibiotics within last 7 days? No Methicillin Resistant Staphylococcus aureus Screening Active MRSA No Risk for Readmission Number of Risk Factors 4 At Risk for Readmission Patient is At Risk For Readmission Patient is eligible for Call Back Y Past Medical History (Last Reviewed 05/07/18 @ 15:29 by Emilie Marie) Premature atrial contractions (Acute) MDS (myelodysplastic syndrome), low grade (Chronic) Paroxysmal atrial tachycardia (Acute) Paroxysmal ventricular tachycardia (Acute) Premature ventricular contraction (Acute) Palpitations (Acute) HTN (hypertension) (Chronic) Hyperlipidemia (Chronic) Hypertension (Chronic) Hyperlipemia (Chronic) Type 2 diabetes mellitus (Chronic) COPD (chronic obstructive pulmonary disease) (Chronic) Bilateral hip pain (Acute) Contusion of right knee (Acute) Inguinal hernia (Acute) Low back pain (Acute) Prepatellar bursitis, right knee (Acute) Thrombocytopenia (Acute) Arthritis (Chronic) BPH (benign prostatic hyperplasia) (Chronic) BPH (benign prostatic hyperplasia) (Chronic) MDS (myelodysplastic syndrome), low grade (Chronic) Past Surgical History (Last Reviewed 05/07/18 @ 15:29 by Emilie Marie) H/O hernia repair (Chronic) 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 Denies: Chest pain, Palpitations, Orthopnea, PND, Shortness of breath Respiratory: Reports: Shortness of Breath, Shortness of breath upon exertion. Denies: Cough, Hemoptysis, Wheezing Gastrointestinal:: Reports: - - Patient reports chronic constipation and dark stools. Could not clearly distinguish between normal colored but dark stools or melanotic stools.. Denies: Abdominal pain, Nausea, Vomiting, Diarrhea, Constipation, Hematochezia Genitourinary: Reports: Urinary frequency, Nocturia. Denies: Dysuria, Hematuria, Flank pain Musculoskeletal:: Denies: Back pain, Myalgia, Arthralgia Skin: Denies: Rash, Skin Changes, Wounds Neurological:: Reports: Hearing loss. Denies: Headache, Dizziness, Visual changes, Tinnitus Psychiatric: Denies: Anxiety, Depression, Homicidal Ideations, Suicidal Ideations Comment: Easy bruises was daily activity related trauma Vital Signs Height 5 ft 11 in Weight: 102.5 kg Weight in Pounds 226.0 lbs Pulse Ox 93 Temperature 98.1 F Pulse Rate 87 Respiratory Rate 18 Blood Pressure 117/89 Blood Pressure Position Supine - Physical Exam General: Alert, Oriented x3, No apparent distress, - - Overweight Hard of hearing HEENT: Atraumatic, PERRLA, EOMI, Normocephalic Oropharynx:: Dry mucosa Neck:: Supple, Trachea midline. Negative for: JVD, bilateral Cardiac:: Regular rate, Regular rhythm, Normal S1, Normal S2. Negative for: Murmur Lungs: Clear to auscultation, Diminished - Over the bases, Excusion symmetrical. Negative for: Rhonchi, Wheezes Abdomen:: Soft, Non-tender, Non-distended. Negative for: Hepatosplenomegaly Extremities:: Negative for: Cyanosis, Edema Neurological: Neuro grossly intact Skin:: Ecchymosis - Over the extremities but not to trunk. Negative for: Lesions, Rash, Petechiae Psychiatric:: Appropriate affect, Euthymic Lymphatics:: Negative for: Cervical lymphadenopathy, Supraclavicular lymphadenopathy, Axillary lymphadenopathy Laboratory Data: Laboratory Tests Laboratory Tests 09/01/17 12/01/17 03/17/18 13:02 12:18 10:48 Plt Count 63 L 100 L 58 L 04/28/18 05/17/18 05/26/18 12:45 10:23 12:30 Plt Count 68 L 70 L 76 L 05/27/18 05:55 Plt Count 72 L 05/27/18 05/27/18 05/27/18 Range/Units 12:04 11:35 10:38 WBC (4.4-11.0) K/mm3 RBC (4.6-6.2) M/mm3 Hgb (13.0-16.5) g/dl Hct (40-54) % MCV (80-94) fL MCH (27.0-32.0) pg MCHC (32-36) g/gl RDW (11.6-14.6) % RDW Differential (35.1-43.9) fl Plt Count (150-450) K/mm3 Immature Gran % (Auto) (0.0-0.9) % Neut % (Auto) (47-70) % Lymph % (Auto) (19-41) % Tyler % (Auto) (0-10) % Eos % (Auto) (0-5) % Baso % (Auto) (0-1) % Absolute Neuts (auto) (2.0-7.7) X10^3/uL Absolute Lymphs (auto) (0.83-4.51) X10^3/ul Total Counted Differential Comment PT (11.7-14.9) SECONDS INR APTT (24.1-36.2) Seconds Activated Clotting Time 169 H 175 H 186 H (74-137) sec Specimen Type pH (7.35-7.45) Bicarbonate Actual (22-26) mmol/L POC Total CO2 mmol/L Base Excess (-2 to +2) mmol/L O2 Saturation (95-99) % ABG pCO2 (35-45) mmHg ABG pO2 (75-100) mmHG VBG pH (7.32-7.42) VBG pO2 (25-40) mmHg VBG O2 Sat (Calc) (50-70) % VBG O2 Content (23-33) mmol/L VBG Base Excess (-1.0-3.5) mmol/L POC Mix VBG pCO2 Pt Tmp (41-51) mmHg Sodium (136-145) mmol/L Potassium (3.5-5.1) mmol/L Chloride (98-107) mmol/L Carbon Dioxide (21.0-32.0) mmol/L Anion Gap (5-15) BUN (7-18) mg/dL Creatinine (0.70-1.30) mg/dL Estim Creat Clear Calc ml/min Est GFR (MDRD) Af Amer (>60) mL/min Est GFR (MDRD) Non-Af (>60) mL/min BUN/Creatinine Ratio (10-20) RATIO Glucose (74-106) mg/dL Calcium (8.5-10.1) mg/dL Urine Color (Yellow) Urine Clarity (Clear) Urine pH (5.0 - 8.0) Ur Specific [place] (1.002-1.030) Urine Protein (Negative) mg/dl Urine Glucose (UA) (Normal) mg/dl Urine Ketones (Negative) mg/dl Urine Occult Blood (Negative) /ul Urine Nitrite (Negative) Urine Bilirubin (Negative) mg/dL Urine Urobilinogen (Normal) mg/dl Ur Leukocyte Esterase (Negative) /ul Urine RBC (0-5) /hpf Urine WBC (0-5) /hpf Ur Squamous Epith Cells (0-5) /hpf Urine Bacteria (None Seen) /hpf Urine Mucus (<or=2+) /hpf POC Glucose (70-110) mg/dL 05/27/18 05/27/18 05/27/18 Range/Units 09:10 08:05 08:02 WBC (4.4-11.0) K/mm3 RBC (4.6-6.2) M/mm3 Hgb (13.0-16.5) g/dl Hct (40-54) % MCV (80-94) fL MCH (27.0-32.0) pg MCHC (32-36) g/gl RDW (11.6-14.6) % RDW Differential (35.1-43.9) fl Plt Count (150-450) K/mm3 Immature Gran % (Auto) (0.0-0.9) % Neut % (Auto) (47-70) % Lymph % (Auto) (19-41) % Tyler % (Auto) (0-10) % Eos % (Auto) (0-5) % Baso % (Auto) (0-1) % Absolute Neuts (auto) (2.0-7.7) X10^3/uL Absolute Lymphs (auto) (0.83-4.51) X10^3/ul Total Counted Differential Comment PT (11.7-14.9) SECONDS INR APTT (24.1-36.2) Seconds Activated Clotting Time 246 H (74-137) sec Specimen Type ART ESME pH 7.43 (7.35-7.45) Bicarbonate Actual 24.9 (22-26) mmol/L POC Total CO2 26 mmol/L Base Excess 1 (-2 to +2) mmol/L O2 Saturation 93 L (95-99) % ABG pCO2 37.2 (35-45) mmHg ABG pO2 66 L (75-100) mmHG VBG pH 7.41 (7.32-7.42) VBG pO2 30 (25-40) mmHg VBG O2 Sat (Calc) 57 (50-70) % VBG O2 Content 29 (23-33) mmol/L VBG Base Excess 3 (-1.0-3.5) mmol/L POC Mix VBG pCO2 Pt Tmp 43.9 (41-51) mmHg Sodium (136-145) mmol/L Potassium (3.5-5.1) mmol/L Chloride (98-107) mmol/L Carbon Dioxide (21.0-32.0) mmol/L Anion Gap (5-15) BUN (7-18) mg/dL Creatinine (0.70-1.30) mg/dL Estim Creat Clear Calc ml/min Est GFR (MDRD) Af Amer (>60) mL/min Est GFR (MDRD) Non-Af (>60) mL/min BUN/Creatinine Ratio (10-20) RATIO Glucose (74-106) mg/dL Calcium (8.5-10.1) mg/dL Urine Color (Yellow) Urine Clarity (Clear) Urine pH (5.0 - 8.0) Ur Specific [place] (1.002-1.030) Urine Protein (Negative) mg/dl Urine Glucose (UA) (Normal) mg/dl Urine Ketones (Negative) mg/dl Urine Occult Blood (Negative) /ul Urine Nitrite (Negative) Urine Bilirubin (Negative) mg/dL Urine Urobilinogen (Normal) mg/dl Ur Leukocyte Esterase (Negative) /ul Urine RBC (0-5) /hpf Urine WBC (0-5) /hpf Ur Squamous Epith Cells (0-5) /hpf Urine Bacteria (None Seen) /hpf Urine Mucus (<or=2+) /hpf POC Glucose (70-110) mg/dL 05/27/18 05/27/18 05/27/18 Range/Units 07:58 07:55 06:41 WBC (4.4-11.0) K/mm3 RBC (4.6-6.2) M/mm3 Hgb (13.0-16.5) g/dl Hct (40-54) % MCV (80-94) fL MCH (27.0-32.0) pg MCHC (32-36) g/gl RDW (11.6-14.6) % RDW Differential (35.1-43.9) fl Plt Count (150-450) K/mm3 Immature Gran % (Auto) (0.0-0.9) % Neut % (Auto) (47-70) % Lymph % (Auto) (19-41) % Tyler % (Auto) (0-10) % Eos % (Auto) (0-5) % Baso % (Auto) (0-1) % Absolute Neuts (auto) (2.0-7.7) X10^3/uL Absolute Lymphs (auto) (0.83-4.51) X10^3/ul Total Counted Differential Comment PT (11.7-14.9) SECONDS INR APTT (24.1-36.2) Seconds Activated Clotting Time (74-137) sec Specimen Type ESME ESME pH (7.35-7.45) Bicarbonate Actual (22-26) mmol/L POC Total CO2 mmol/L Base Excess (-2 to +2) mmol/L O2 Saturation (95-99) % ABG pCO2 (35-45) mmHg ABG pO2 (75-100) mmHG VBG pH 7.40 7.41 (7.32-7.42) VBG pO2 30 34 (25-40) mmHg VBG O2 Sat (Calc) 57 65 (50-70) % VBG O2 Content 29 28 (23-33) mmol/L VBG Base Excess 3 3 (-1.0-3.5) mmol/L POC Mix VBG pCO2 Pt Tmp 44.7 42.7 (41-51) mmHg Sodium (136-145) mmol/L Potassium (3.5-5.1) mmol/L Chloride (98-107) mmol/L Carbon Dioxide (21.0-32.0) mmol/L Anion Gap (5-15) BUN (7-18) mg/dL Creatinine (0.70-1.30) mg/dL Estim Creat Clear Calc ml/min Est GFR (MDRD) Af Amer (>60) mL/min Est GFR (MDRD) Non-Af (>60) mL/min BUN/Creatinine Ratio (10-20) RATIO Glucose (74-106) mg/dL Calcium (8.5-10.1) mg/dL Urine Color (Yellow) Urine Clarity (Clear) Urine pH (5.0 - 8.0) Ur Specific [place] (1.002-1.030) Urine Protein (Negative) mg/dl Urine Glucose (UA) (Normal) mg/dl Urine Ketones (Negative) mg/dl Urine Occult Blood (Negative) /ul Urine Nitrite (Negative) Urine Bilirubin (Negative) mg/dL Urine Urobilinogen (Normal) mg/dl Ur Leukocyte Esterase (Negative) /ul Urine RBC (0-5) /hpf Urine WBC (0-5) /hpf Ur Squamous Epith Cells (0-5) /hpf Urine Bacteria (None Seen) /hpf Urine Mucus (<or=2+) /hpf POC Glucose 107 (70-110) mg/dL 05/27/18 05/27/18 05/27/18 Range/Units 05:55 05:55 05:55 WBC 3.3 L (4.4-11.0) K/mm3 RBC 3.36 L (4.6-6.2) M/mm3 Hgb 9.5 L (13.0-16.5) g/dl Hct 29.1 L (40-54) % MCV 86.6 (80-94) fL MCH 28.3 (27.0-32.0) pg MCHC 32.6 (32-36) g/gl RDW 22.4 H (11.6-14.6) % RDW Differential 64.5 H (35.1-43.9) fl Plt Count 72 L (150-450) K/mm3 Immature Gran % (Auto) 0.600 (0.0-0.9) % Neut % (Auto) 63.2 (47-70) % Lymph % (Auto) 27.4 (19-41) % Tyler % (Auto) 7.6 (0-10) % Eos % (Auto) 0.9 (0-5) % Baso % (Auto) 0.3 (0-1) % Absolute Neuts (auto) 2.1 (2.0-7.7) X10^3/uL Absolute Lymphs (auto) 0.90 (0.83-4.51) X10^3/ul Total Counted Not Reportable Differential Comment COMMENT PT 15.6 H (11.7-14.9) SECONDS INR 1.2 APTT 33.2 (24.1-36.2) Seconds Activated Clotting Time (74-137) sec Specimen Type pH (7.35-7.45) Bicarbonate Actual (22-26) mmol/L POC Total CO2 mmol/L Base Excess (-2 to +2) mmol/L O2 Saturation (95-99) % ABG pCO2 (35-45) mmHg ABG pO2 (75-100) mmHG VBG pH (7.32-7.42) VBG pO2 (25-40) mmHg VBG O2 Sat (Calc) (50-70) % VBG O2 Content (23-33) mmol/L VBG Base Excess (-1.0-3.5) mmol/L POC Mix VBG pCO2 Pt Tmp (41-51) mmHg Sodium 138 (136-145) mmol/L Potassium 4.1 (3.5-5.1) mmol/L Chloride 104 (98-107) mmol/L Carbon Dioxide 29.0 (21.0-32.0) mmol/L Anion Gap 5 (5-15) BUN 20 H (7-18) mg/dL Creatinine 1.42 H (0.70-1.30) mg/dL Estim Creat Clear Calc 43.45 ml/min Est GFR (MDRD) Af Amer 61 (>60) mL/min Est GFR (MDRD) Non-Af 51 L (>60) mL/min BUN/Creatinine Ratio 14.1 (10-20) RATIO Glucose 106 (74-106) mg/dL Calcium 8.4 L (8.5-10.1) mg/dL Urine Color (Yellow) Urine Clarity (Clear) Urine pH (5.0 - 8.0) Ur Specific [place] (1.002-1.030) Urine Protein (Negative) mg/dl Urine Glucose (UA) (Normal) mg/dl Urine Ketones (Negative) mg/dl Urine Occult Blood (Negative) /ul Urine Nitrite (Negative) Urine Bilirubin (Negative) mg/dL Urine Urobilinogen (Normal) mg/dl Ur Leukocyte Esterase (Negative) /ul Urine RBC (0-5) /hpf Urine WBC (0-5) /hpf Ur Squamous Epith Cells (0-5) /hpf Urine Bacteria (None Seen) /hpf Urine Mucus (<or=2+) /hpf POC Glucose (70-110) mg/dL 05/27/18 Range/Units 05:45 WBC (4.4-11.0) K/mm3 RBC (4.6-6.2) M/mm3 Hgb (13.0-16.5) g/dl Hct (40-54) % MCV (80-94) fL MCH (27.0-32.0) pg MCHC (32-36) g/gl RDW (11.6-14.6) % RDW Differential (35.1-43.9) fl Plt Count (150-450) K/mm3 Immature Gran % (Auto) (0.0-0.9) % Neut % (Auto) (47-70) % Lymph % (Auto) (19-41) % Tyler % (Auto) (0-10) % Eos % (Auto) (0-5) % Baso % (Auto) (0-1) % Absolute Neuts (auto) (2.0-7.7) X10^3/uL Absolute Lymphs (auto) (0.83-4.51) X10^3/ul Total Counted Differential Comment PT (11.7-14.9) SECONDS INR APTT (24.1-36.2) Seconds Activated Clotting Time (74-137) sec Specimen Type pH (7.35-7.45) Bicarbonate Actual (22-26) mmol/L POC Total CO2 mmol/L Base Excess (-2 to +2) mmol/L O2 Saturation (95-99) % ABG pCO2 (35-45) mmHg ABG pO2 (75-100) mmHG VBG pH (7.32-7.42) VBG pO2 (25-40) mmHg VBG O2 Sat (Calc) (50-70) % VBG O2 Content (23-33) mmol/L VBG Base Excess (-1.0-3.5) mmol/L POC Mix VBG pCO2 Pt Tmp (41-51) mmHg Sodium (136-145) mmol/L Potassium (3.5-5.1) mmol/L Chloride (98-107) mmol/L Carbon Dioxide (21.0-32.0) mmol/L Anion Gap (5-15) BUN (7-18) mg/dL Creatinine (0.70-1.30) mg/dL Estim Creat Clear Calc ml/min Est GFR (MDRD) Af Amer (>60) mL/min Est GFR (MDRD) Non-Af (>60) mL/min BUN/Creatinine Ratio (10-20) RATIO Glucose (74-106) mg/dL Calcium (8.5-10.1) mg/dL Urine Color Yellow (Yellow) Urine Clarity Clear (Clear) Urine pH 6.0 (5.0 - 8.0) Ur Specific [place] 1.015 (1.002-1.030) Urine Protein 30 H (Negative) mg/dl Urine Glucose (UA) Normal (Normal) mg/dl Urine Ketones Negative (Negative) mg/dl Urine Occult Blood 10 H (Negative) /ul Urine Nitrite Negative (Negative) Urine Bilirubin Negative (Negative) mg/dL Urine Urobilinogen Normal (Normal) mg/dl Ur Leukocyte Esterase Negative (Negative) /ul Urine RBC 0 SEEN (0-5) /hpf Urine WBC 0 SEEN (0-5) /hpf Ur Squamous Epith Cells 0 SEEN (0-5) /hpf Urine Bacteria 0 SEEN (None Seen) /hpf Urine Mucus 0 SEEN (<or=2+) /hpf POC Glucose (70-110) mg/dL Diagnostic Data: Diagnostic Data Chest X-Ray 05/26/18 11:57 IMPRESSION: Low lung volumes. Small right pleural effusion. No evidence of acute failure. Stable cardiomegaly. Electronically Signed: Juana Schulz MD at 13:02 EDT , Service support , Assessment and Plan 82-year-old gentleman with a very low risk MDS (anemia with hemoglobin over 8 g but less than 10 g, thrombocytopenia with a platelet count between 50-100 K and absolute neutrophil count over 800, very good cytogenetics profile and less than 2% bone marrow blasts, bone marrow study 2016). Score <=1.5: Very low risk: median overall survival 8.8 years with >14.5 years to 25% AML evolution. Patient admitted with new onset cardiac failure, cardiology recommendation include dual antiplatelet therapy with aspirin long-term and Plavix for 1 year. From the hematology consult view antiplatelet therapy is not contraindicated as long as platelets are above 50 K. It is conceivable that he has some baseline platelet dysfunction due to chronic renal failure but again that in itself is not a contraindication for antiplatelet therapy as long as the benefit outweighs the risk. Patient reported dark stools and I would advise stool testing for occult blood. If positive further evaluation by GI would be advisable. Thank you for involving me in his care, to follow-up with as earlier scheduled. Medications: Prescriptions This Visit Medication Instructions Recorded Guaifenesin [Guaifenesin ER] 1,200 mg PO Q12H 05/26/18 Lisinopril [Zestril] 2.5 mg PO QDAY 05/26/18 Metformin HCl [Glucophage] 1,000 mg PO DAILY 05/26/18 Metoprolol Tartrate 12.5 mg PO DAILY 05/26/18 Simvastatin 20 mg PO QHS 05/26/18 Tamsulosin HCl [Flomax] 0.4 mg PO DAILY 05/26/18 Tiotropium Parks [Spiriva] 1 cap INHALATION DAILY 05/26/18 Medications Added to Medication List This Visit Category Date Time Status 0.9% Normal Saline 1,000 ml Med 05/27/18 09:15 Active IV 150 mls/hr Amiodarone HCl [Cordarone] Med 05/27/18 14:00 Active 200 mg PO TID Heparin Sodium,Porcine/Pf [Heparin 500 Unit/5 ml (100/ Med 05/27/18 09:12 Active ml)] 500 unit IV UD PRN Insulin Lispro [Humalog kwikpen (BKC)] Med 05/27/18 16:00 Active See Protocol SC ACHS Labetalol [Trandate] Med 05/27/18 09:12 Active 5 mg IV X1 PRN Lisinopril [Zestril] Med 05/27/18 10:00 Active 2.5 mg PO DAILY Metformin HCl [Glucophage] Med 05/27/18 08:00 Hold 1,000 mg PO DAILYCM Metoprolol(XL)Succ [Toprol Xl (Beta Phill)] Med 05/27/18 22:00 Active 25 mg PO BID Tamsulosin HCl [Flomax] Med 05/27/18 17:00 Active 0.4 mg PO SUPPER Primary Care Provider: Roc Martinez MD Referring Provider: Mic Khan
[2018-05-27] MEDS: Insulin Lispro 100 UNIT/ML INSULN.PEN SC (16:39)
[2018-05-27] MEDS: Tamsulosin HCl 0.4 MG Capsule PO (16:41)
[2018-05-27] MEDS: Furosemide 40 MG/4 ML Vial IV (16:41)
[2018-05-27 16:55] LABS: Bedside Glucose 156 mg/dL (70-110)
--- NOTE | 2018-05-27 18:39 | NURSING ---
all care completed by alexsandra villa was completed by this RN
--- NOTE | 2018-05-27 19:34 | CL.D_ITS ---
Patient Name: BELEN BRIGGS Study Date: 05/27/2018 Performing: Marcelo Reynolds MD Ht: 71 inches 180 cm : 1935 Wt: 227.4 lbs 103 kg Age: 82 Gender: male BSA: 2.22 PROCEDURE(S) PERFORMED TK63-WLK/LHC/COR/LV DC11-AO ROOT ANGIO WITH HEART CATH [id number], CORONARY OR GRAFT, INITIAL VESSEL CLINICAL PROFILE AND INDICATIONS Indications: Suspected CAD, CHF / atrial fibrillation, Other Heart Failure: NYHA Class: 3, Newly Diagnosed: Yes, Heart Failure Type: Diastolic Stress/Imaging Stress Test w/SPECT MPI: Yes Result: NegativeStress Test with SPECT MPI: NegativeS tress/Image Study Performed: No Angina Classification Anginal Classification w/in 2 Weeks: CCS III CAD Presentations: Unstable angina. Other: Dyspnea on exertion; afib Other: shortness of breath Comorbidities/Risk Factors: Hypertension Dyslipidemia Diabetes Mellitus: Diabetes Therapy: Oral CONCLUSIONS Elevated Left Ventricular End Diastolic Pressure Right heart pressures - severely elevated The patient has pulmonary hypertension which is severe. Intracardiac shunting: None Normal LV size, wall motion,and systolic function LVEF: by LV gram 65 % [place] Multivessel CAD RECOMMENDATIONS Risk factor modification Medical therapy Staged for FFR (LAD) DESCRIPTION OF PROCEDURE The patient arrived to the procedure lab. The risks and benefits of the procedure as well as a full d escription of our services here and current unavailability of surgical backup were fully explained to the patient and/or their significant other prior to the catheterization. The Timeout was completed, verifying the correct patient and procedure. The patient's procedural site was prepped and draped in the usual fashion. Local anesthetic was given subcutaneously to right groin region with Lidocaine 2%. Using a modified Seldinger technique, arterial access was obtained via the right femoral artery, a 4 Fr sheath was inserted Venous access was obtained via the right femoral vein, a 7Fr sheath was insert ed. A 7Fr thermal dilution catheter was inserted and right heart pressures were recorded, it was then advanced to PA position for cardiac outputs. O2 saturations were then obtained. Thermal dilution car diac outputs were then recorded. Left Ventriculography was performed in CHU projection using a 4 Fr. Pigtail catheter. LV to AO pullback pressures were then recorded. Simultaneous pressures were then re corded. The Thermal dilution catheter was then removed. Left Coronary Artery selective angiography wa s performed in multiple views using a 4 Fr. JL5 catheter. Ascending (root) aorta selective angiograph y was then performed in single view with a 4 fr Pigtail. Ascending (root) aorta selective angiography was then performed in single view with a 4 fr Pigtail.The arterial sheath was pulled and manual comp ression applied until hemostasis is achieved.. The venous sheath was then pulled and manual compressi on applied until hemostasis achieved CORONARY ANGIOGRAPHY DOMINANCE: Left Dominant LEFT HEART ASSESSMENT Left Ventricular Ejection Fraction: by LV Gram 65 % Normal LV wall motion Elevated Left Ventricular End Diastolic Pressure LVEDP: 19 mmHg RIGHT HEART ASSESSMENT Thermal CO: 7.39 Thermal CI: 3.33 Alexy CO: 8.16 Alexy CI: 3.68 PW: /33 24 PA: 60/20 34 RV: 50/6 12 RA: / 11 PVR: 108 SVR: 855 Right Heart pressures - elevated Pulmonary Hypertension Severe Intracardiac shunting: None LEFT MAIN: Angiographically normal LEFT ANTERIOR DECENDING ARTERY: PROX LAD: Mild calcification, Eccentric: 25 - 50 % Stenosis CIRCUMFLEX ARTERY: OSTIAL CIRC: 25 % Stenosis MID CIRC: Mild calcification, Eccentric: 25 % Stenosis RIGHT CORONARY ARTERY: OSTIAL RCA: Severe calcification, is occluded COLLATERAL FLOW: Collateral flow from Left to Right VALVE FINDINGS: Normal Aortic Valve function Normal Mitral Valve function AORTIC ROOT: Angiographically normal COMPLICATIONS No Complications PROCEDURE MEDICATIONS Versed 1 mg IV Oxygen: 0 L/min via nasal cannula Oxygen: 2 L/min via nasal cannula Baby Aspirin (81mg) 1 Tabs PO 05/27/2018 07:28:09 Adenosine drip for FFR 28.7 ml IV @ 05/27/2018 09:08:18 Heparin 6000 unit(s) IV 05/27/2018 09:00:58 Nitro 200 mcg IC 05/27/2018 09:02:48 IV Fluids: .9 NaCl increased to WO ml/hr 05/27/2018 09:02:41 SUMMARY OF HEMODYNAMIC DATA Time AIR REST ECG 07:25:07 RA /14 (11) SV 07:56:24 RV 50/6, 12 07:56:40 PW /33 (24) PV 07:57:22 PA 60/20 (34) PA 07:57:38 LV 141/-4, 20 08:04:14 PW /35 (25) 08:04:14 LV 136/-6, 19 08:04:20 PW /33 (23) 08:04:20 LV 129/3, 22 08:05:21 PW /34 (24) 08:05:21 LV 124/0, 19 08:05:27 PW /16 (24) 08:05:27 LVp 125/7, 23 08:05:50 AOp 127/59 (86) 08:05:55 AO 132/61 (90) SA 08:06:12 PA 54/21 (32) 08:06:23 RV 44/3, 12 08:06:34 RA /17 (13) 08:06:45 AO 103/69 (88) 08:10:09 Type SV CO (l/m) CI (l/m/ HR Time AIR REST Thermal 77.00 7.39 3.33 96 07:25:07 Alexy 85.00 8.16 3.68 96 07:25:07 Label % O2 Pres/Loc Time AIR REST IVC 65 SV 08:08:26 SVC 57 08:08:30 AO 93 PV 08:08:37 PA 57 PA 08:08:49 Signed By Marcelo Reynolds MD On 05/27/2018 19:34:05 Marcelo Reynolds MD
--- NOTE | 2018-05-27 20:05 | PN.CARD_ITS ---
Subjectve: The patient underwent diagnostic cardiac catheterization earlier this day without obvious adverse event. He appears to be resting comfortably. Objective: Vital Signs Temp Pulse Resp BP Pulse Ox 98.8 F 79 18 110/50 L 93 05/27/18 19:16 05/27/18 19:16 05/27/18 19:16 05/27/18 19:16 05/27/18 19:16 Oxygen Flow Rate (L/min) 2 Oxygen Delivery Method Room Air Weight: 225 lb 15.581 oz Body Mass Index (BMI) 31.5 Intake and Output for Last 24 Hours 05/25/18 05/26/18 05/27/18 23:59 23:59 23:59 Intake Total 240 / 240 1080 / 1080 Output Total 1200 / 1200 1850 / 1850 Balance -960 / -960 -770 / -770 General: Awake, Alert, Oriented x 3, Cooperative, No Acute Distress HEENT: Atraumatic, Normocephalic, PERRL, EOMI, Sclera Non Icteric Oral: Moist Mucosa Neck: Supple, Good ROM, No JVD Lungs: Diminished Shan Bases Cardiovascular: Irregular Rhythm, Normal S1, Normal S2 Vascular: Normal Femoral Pulses Abdomen: Bowel Sounds Present, Soft, Non Tender Neurological: No Focal Motor or Sensory Deficit Psych/Mental Status: Appropriate, Normal Affect 05/27/18 05:45: Urine Color Yellow, Urine Clarity Clear, Urine pH 6.0, Ur Specific [place] 1.015, Urine Protein 30 H, Urine Glucose (UA) Normal, Urine Ketones Negative, Urine Occult Blood 10 H, Urine Nitrite Negative, Urine Bilirubin Negative, Urine Urobilinogen Normal, Ur Leukocyte Esterase Negative, Urine RBC 0 SEEN, Urine WBC 0 SEEN 05/27/18 05:55: Sodium 138, Potassium 4.1, Chloride 104, Carbon Dioxide 29.0, Anion Gap 5, BUN 20 H, Creatinine 1.42 H, Est GFR (MDRD) Af Amer 61, Est GFR (MDRD) Non-Af 51 L, BUN/Creatinine Ratio 14.1, Glucose 106, Calcium 8.4 L 05/27/18 05:55: WBC 3.3 L, RBC 3.36 L, Hgb 9.5 L, Hct 29.1 L, MCV 86.6, MCH 28.3, MCHC 32.6, RDW 22.4 H, RDW Differential 64.5 H, Plt Count 72 L, Immature Gran % (Auto) 0.600, Neut % (Auto) 63.2, Lymph % (Auto) 27.4, [place] % (Auto) 7.6, Eos % (Auto) 0.9, Baso % (Auto) 0.3, Absolute Neuts (auto) 2.1, Total Counted Not Reportable 05/27/18 05:55: PT 15.6 H, INR 1.2, APTT 33.2 05/27/18 07:55: VBG pH 7.41, VBG pO2 34, VBG O2 Sat (Calc) 65, VBG O2 Content 28, VBG Base Excess 3 05/27/18 07:58: VBG pH 7.40, VBG pO2 30, VBG O2 Sat (Calc) 57, VBG O2 Content 29, VBG Base Excess 3 05/27/18 08:02: VBG pH 7.41, VBG pO2 30, VBG O2 Sat (Calc) 57, VBG O2 Content 29, VBG Base Excess 3 05/27/18 08:05: pH 7.43, Bicarbonate Actual 24.9, POC Total CO2 26, Base Excess 1, O2 Saturation 93 L, ABG pCO2 37.2, ABG pO2 66 L Rhythm: Atrial fibrillation Cardiac Cath: Please see official report Medical Necessity - Tobacco Use Smoking Status: Former smoker Tobacco Use: Cigarettes Assessment/Plan 1. Atrial fibrillation The patient presents with atrial fibrillation. This may have attributed to his decompensation. At the present time he will continue rate control therapy. He has been evaluated by hematology/oncology with approval to proceed with antiplatelet therapy depending upon his platelet count. However, he ideally requires anticoagulant therapy. Thus their input would be most appreciated with respect to this issue. He will also be placed on antiarrhythmic therapy with amiodarone. Depending upon his clinical course, over time, consideration should be given to an attempt at regaining sinus rhythm which may help with respect to his underlying cardiovascular status and symptoms. This may come with medical management as well as an attempt at synchronized biphasic DC cardioversion therapy. 2. CAD He does have CAD. However he does not appear to require percutaneous intervention at this time. Thus he will continue medical management. 3. CHF: Acute diastolic Based upon his studies thus far he does not appear to have diminished LV systolic function. Thus his CHF appears to be related to acute diastolic dysfunction. At the present time he will need continued medical management. This will include attempts at atrial fibrillation rate control as well as eventual regaining sinus rhythm and medical management with respect to diuretic therapy. 4. Pulmonary hypertension His right sided/pulmonary pressures appear to be markedly elevated. 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 At the present time he will continue medical management. Pulmonology has been requested to evaluate the patient for further input regarding his underlying pulmonary status. 5. Hyperlipidemia He will continue risk factor evaluation care as deemed appropriate. 6. Hypertension His blood pressures will be monitored during his clinical course. His medications can be adjusted as deemed appropriate. 7. Myelodysplastic syndrome The hematology oncology consultation is appreciated. It appears the patient can proceed with antiplatelet therapy depending upon his platelet count. Again their input with respect to anticoagulant therapy noting his underlying atrial dysrhythmia/fibrillation would be most appreciated. Comment: The patient's case was discussed at length with the patient, his family members present, and Dr. Khan. This note was generated with [employer] dictation software. It may contain incorrect words, spelling, and punctuation that were not noted in checking the note before signing.
[2018-05-27] MEDS: Atorvastatin Calcium 10 MG Tablet PO (21:10)
[2018-05-27] MEDS: guaiFENesin 1,200 MG Tablet 1200 MG PO (21:10)
[2018-05-28] VITALS (18 sets, daily range): BP systolic 98–117; BP diastolic 40–60; PULSE 62–81; RESP 16–23; TEMP 36.6–36.9; O2SAT 93–95
[2018-05-28 00:06] LABS: Bedside Glucose 104 mg/dL (70-110)
[2018-05-28] MEDS: Amiodarone 200 MG Tablet PO ×3 (05:32→21:11)
[2018-05-28 07:06] LABS: Bedside Glucose 120 mg/dL (70-110)
[2018-05-28 07:31] LABS: Anion Gap 8 (5-15); BUN 17 mg/dL (7-18); BUN/Creat Ratio 11.6 RATIO (10-20); Calcium,Total 8.5 mg/dL (8.5-10.1); Chloride 104 mmol/L (98-107); Creatinine, Serum 1.46 mg/dL (0.70-1.30); EST Glomerular Filtration Rate 49 mL/min (>60); Est Glom Filt Rate - Afr Amer 60 mL/min (>60); Estimated Creatinine Clearance 42.26 ml/min; Glucose 124 mg/dL (74-106); Potassium 4.2 mmol/L (3.5-5.1); Sodium Level 140 mmol/L (136-145)
[2018-05-28 07:36] LABS: Magnesium 1.9 mg/dL (1.6-2.6)
[2018-05-28 07:45] LABS: Absolute Lymphocyte Count 0.72 X10^3/ul (0.83-4.51); Absolute Neutrophil Count 2.5 X10^3/uL (2.0-7.7); Differential Indicated SCAN CRITERIA MET; Eosinophil# 0.01 X10^3/uL; Eosinophils% 0.3 % (0-5); Hematocrit 29.4 % (40-54); Hemoglobin 9.7 g/dl (13.0-16.5); Lymphocyte # 0.72 X10^3/ul (4.0); Lymphocyte % 20.6 % (19-41); Mean Corpuscular Hgb 28.4 pg (27.0-32.0); Monocyte# 0.26 X10^3/uL; Monocyte% 7.4 % (0-10); Neutrophil # 2.49 X10^3/uL (2.7-7.7); Neutrophil % 71.1 % (47-70); POSITIVE COUNT NO; POSITIVE DIFFERENTIAL NO; POSITIVE MORPHOLOGY YES; Platelet Count 65 K/mm3 (150-450); RBC Distribution Width CV 22.1 % (11.6-14.6); RBC Distribution Width SD 62.2 fl (35.1-43.9); Red Blood Count 3.42 M/mm3 (4.6-6.2); White Blood Count 3.5 K/mm3 (4.4-11.0)
--- NOTE | 2018-05-28 07:54 | PCM.CONS.GEN ---
Reason for Consult Date of Consultation: 05/28/18 Reason for Consultation: COPD exacerbation History of Present Illness: The patient is an 82-year-old male, with a history as outlined below, who initially presented to the emergency department on May 26 with complaints of dyspnea and lower externally edema. Patient has a history of MDS diagnosed via bone marrow biopsy in May 2016. He has been followed periodically by Dr. Chavarria on an outpatient basis. She has remained clinically stable without indication for therapy. The patient has a [id number] smoking history, having quit completely 30 years ago. 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 Although he does not have an established diagnosis of COPD, as he has never had PFTs completed, he is currently prescribed both Spiriva and as needed albuterol in his home environment. He states that his reliance on his short acting beta agonist is quite infrequent. He does not utilize supplemental oxygen at his baseline. On presentation to the emergency department, the patient was noted to be in new onset atrial fibrillation. He is currently rate controlled. He is being medically managed for his underlying coronary artery disease and has been diuresed due to established heart failure with preserved ejection fraction. At the current time, the patient denies the presence of shortness of breath. He is maintaining appropriate oxygen saturations on room air. A plain film chest x-ray obtained on presentation to the hospital revealed cardiomegaly with a small right pleural effusion. Past Medical History Past Medical History (Chronic Problems): Chronic Problems (Last Reviewed 05/07/18 @ 15:29 by Emilie Marie) Anemia (Chronic) Thrombocytopenia (Chronic) MDS (myelodysplastic syndrome), low grade (Chronic) HTN (hypertension) (Chronic) Hyperlipidemia (Chronic) Hypertension (Chronic) Hyperlipemia (Chronic) Type 2 diabetes mellitus (Chronic) COPD (chronic obstructive pulmonary disease) (Chronic) Medical History: Medical History (Last Reviewed 05/07/18 @ 15:29 by Emilie Marie) Premature atrial contractions (Acute) I49.1 MDS (myelodysplastic syndrome), low grade (Chronic) D46.20 Paroxysmal atrial tachycardia (Acute) I47.1 Paroxysmal ventricular tachycardia (Acute) I47.2 Premature ventricular contraction (Acute) I49.3 Palpitations (Acute) R00.2 HTN (hypertension) (Chronic) I10 Hyperlipidemia (Chronic) E78.5 Hypertension (Chronic) I10 Hyperlipemia (Chronic) E78.5 Type 2 diabetes mellitus (Chronic) E11.9 COPD (chronic obstructive pulmonary disease) (Chronic) J44.9 Bilateral hip pain M25.551, M25.552 Contusion of right knee S80.01XA Inguinal hernia K40.90 Low back pain M54.5 Prepatellar bursitis, right knee M70.41 Thrombocytopenia D69.6 Arthritis M19.90 BPH (benign prostatic hyperplasia) N40.0 BPH (benign prostatic hyperplasia) N40.0 MDS (myelodysplastic syndrome), low grade D46.20 Allergies codeine Adverse Reaction (Severe, Verified 05/26/18 11:33) Unknown Home Medications: Ambulatory Orders Medication Instructions Recorded apple cider vinegar 300 mg tablet 450 mg PO DAILY 09/15/17 multivitamin with iron tablet 1 tab PO QDAY 09/15/17 mecobalamin (vitamin B12) 1,000 1,000 mcg SUBLINGUAL QDAY 09/25/17 mcg disintegrating tablet,sublingual albuterol sulfate HFA 90 1 puff INHALATION Q6H PRN #8.5 g 04/28/18 mcg/actuation aerosol inhaler Guaifenesin [Guaifenesin ER] 1,200 mg PO Q12H 05/26/18 Lisinopril [Zestril] 2.5 mg PO QDAY 05/26/18 Metformin HCl [Glucophage] 1,000 mg PO DAILY 05/26/18 Metoprolol Tartrate 12.5 mg PO DAILY 05/26/18 Simvastatin 20 mg PO QHS 05/26/18 Tamsulosin HCl [Flomax] 0.4 mg PO DAILY 05/26/18 Tiotropium [place] [Spiriva] 1 cap INHALATION DAILY 05/26/18 Surgical History: Surgical History (Last Reviewed 05/07/18 @ 15:29 by Emilie Marie) H/O hernia repair Z98.890, Z87.19 History of left hip replacement Z96.642 History of left hip replacement Z96.642 History of hand surgery Z98.890 Lt Smoking Status: Former smoker Tobacco Use: Cigarettes Review of Systems Constitutional: Denies: Chills, Fever Eyes: Denies: Blurred vision, Double vision HEENT: Denies: Head Aches, Sinus Congestion, Sinus Drainage Cardiovascular: Reports: Edema. Denies: Chest Pain, Palpitations Respiratory: Reports: Shortness of Breath. Denies: Cough, Sputum production Gastrointestinal: Denies: Abdominal Pain, Nausea, Vomiting Genitourinary: Denies: Dysuria Musculoskeletal: Denies: Joint Pain, Joint Tenderness Skin: Denies: Rash, Wounds Neurological: Denies: Numbness, Tingling, Focal weakness Psychiatric: Denies: Anxiety, Depression, Homicidal Ideations, Suicidal Ideations Hematologic/ Lymphatic: Reports: Adenopathy Patient Problems: Active and Suspected Problems (Last Reviewed 05/07/18 @ 15:29 by Emilie Marie) Acute on chronic diastolic CHF (congestive heart failure) (Acute) Objective: The patient's most recent lab work, culture data and imaging studies have all been personally reviewed. - Physical Exam General: Alert, Oriented x3, Cooperative, No apparent distress, - - Sitting in bedside recliner. HEENT: Atraumatic, PERRLA, Normocephalic Oral: Moist Mucosa, No Gingival or Mucosal Lesions/ Ulcerations Neck: Supple, No Nodes, Trachea Midline Lungs: Diminished, Rales, - - Very faint end expiratory wheeze Cardiovascular: Normal S1, Normal S2, No murmurs, Irregular Rate Abdomen: Bowel Sounds Present, Soft, Non Tender Extremities: No clubbing, No cyanosis, Edema Skin: No breakdown Musculoskeletal: No Tenderness to Palpation of Joints or Extremities Lymphatic: No Cervical, Supraclavicular, or Inguinal Adenopathy Neurological: Cranial nerves II-XII grossly intact, Neuro grossly intact Psych/Mental Status: Alert and oriented to time, place, person, mood and affect Vital Signs Temp Pulse Resp BP Pulse Ox 98.0 F 74 23 H 108/60 94 05/28/18 03:03 05/28/18 07:15 05/28/18 03:03 05/28/18 03:03 05/28/18 03:03 Oxygen Flow Rate (L/min) 2 Oxygen Delivery Method Room Air Weight: 220 lb 10.923 oz Body Mass Index (BMI) 31.5 Intake and Output for Last 24 Hours 05/26/18 05/27/18 05/28/18 23:59 23:59 23:59 Intake Total 240 / 240 2686 / 2686 340 / 340 Output Total 1200 / 1200 2195 / 2195 375 / 375 Balance -960 / -960 491 / 491 -35 / -35 Laboratory Tests Past 24 Hrs 05/27/18 05/27/18 05/27/18 07:55 07:58 08:02 WBC RBC Hgb Hct MCV MCH MCHC RDW RDW Differential Plt Count Immature Gran % (Auto) Neut % (Auto) Lymph % (Auto) [place] % (Auto) Eos % (Auto) Baso % (Auto) Absolute Neuts (auto) Absolute Lymphs (auto) Total Counted Activated Clotting Time Specimen Type ESME ESME ESME pH Bicarbonate Actual POC Total CO2 Base Excess O2 Saturation ABG pCO2 ABG pO2 VBG pH 7.41 7.40 7.41 VBG pO2 34 30 30 VBG O2 Sat (Calc) 65 57 57 VBG O2 Content 28 29 29 VBG Base Excess 3 3 3 POC Mix VBG pCO2 Pt Tmp 42.7 44.7 43.9 Sodium Potassium Chloride Carbon Dioxide Anion Gap BUN Creatinine Estim Creat Clear Calc Est GFR (MDRD) Af Amer Est GFR (MDRD) Non-Af BUN/Creatinine Ratio Glucose Calcium Magnesium 05/27/18 05/27/18 05/27/18 08:05 09:10 10:38 WBC RBC Hgb Hct MCV MCH MCHC RDW RDW Differential Plt Count Immature Gran % (Auto) Neut % (Auto) Lymph % (Auto) [place] % (Auto) Eos % (Auto) Baso % (Auto) Absolute Neuts (auto) Absolute Lymphs (auto) Total Counted Activated Clotting Time 246 H 186 H Specimen Type ART pH 7.43 Bicarbonate Actual 24.9 POC Total CO2 26 Base Excess 1 O2 Saturation 93 L ABG pCO2 37.2 ABG pO2 66 L VBG pH VBG pO2 VBG O2 Sat (Calc) VBG O2 Content VBG Base Excess POC Mix VBG pCO2 Pt Tmp Sodium Potassium Chloride Carbon Dioxide Anion Gap BUN Creatinine Estim Creat Clear Calc Est GFR (MDRD) Af Amer Est GFR (MDRD) Non-Af BUN/Creatinine Ratio Glucose Calcium Magnesium 05/27/18 05/27/18 05/28/18 11:35 12:04 06:37 WBC 3.5 L RBC 3.42 L Hgb 9.7 L Hct 29.4 L MCV 86.0 MCH 28.4 MCHC 33.0 RDW 22.1 H RDW Differential 62.2 H Plt Count 65 L Immature Gran % (Auto) 0.600 Neut % (Auto) 71.1 H Lymph % (Auto) 20.6 [place] % (Auto) 7.4 Eos % (Auto) 0.3 Baso % (Auto) 0.0 Absolute Neuts (auto) 2.5 Absolute Lymphs (auto) 0.72 L Total Counted Pending Activated Clotting Time 175 H 169 H Specimen Type pH Bicarbonate Actual POC Total CO2 Base Excess O2 Saturation ABG pCO2 ABG pO2 VBG pH VBG pO2 VBG O2 Sat (Calc) VBG O2 Content VBG Base Excess POC Mix VBG pCO2 Pt Tmp Sodium Potassium Chloride Carbon Dioxide Anion Gap BUN Creatinine Estim Creat Clear Calc Est GFR (MDRD) Af Amer Est GFR (MDRD) Non-Af BUN/Creatinine Ratio Glucose Calcium Magnesium 05/28/18 05/28/18 06:37 06:37 WBC RBC Hgb Hct MCV MCH MCHC RDW RDW Differential Plt Count Immature Gran % (Auto) Neut % (Auto) Lymph % (Auto) [place] % (Auto) Eos % (Auto) Baso % (Auto) Absolute Neuts (auto) Absolute Lymphs (auto) Total Counted Activated Clotting Time Specimen Type pH Bicarbonate Actual POC Total CO2 Base Excess O2 Saturation ABG pCO2 ABG pO2 VBG pH VBG pO2 VBG O2 Sat (Calc) VBG O2 Content VBG Base Excess POC Mix VBG pCO2 Pt Tmp Sodium 140 Potassium 4.2 Chloride 104 Carbon Dioxide 28.0 Anion Gap 8 BUN 17 Creatinine 1.46 H Estim Creat Clear Calc 42.26 Est GFR (MDRD) Af Amer 60 Est GFR (MDRD) Non-Af 49 L BUN/Creatinine Ratio 11.6 Glucose 124 H Calcium 8.5 Magnesium 1.9 POC Glucose 05/28/18 05/27/18 05/27/18 06:50 21:00 16:39 POC Glucose 120 H 104 156 H Clinical Impression(s) from Imaging Studies Chest X-Ray 05/26/18 11:57 IMPRESSION: Low lung volumes. Small right pleural effusion. No evidence of acute failure. Stable cardiomegaly. Electronically Signed: Juana Schulz MD at 13:02 EDT , Service support , Assessment/Plan All Active Problems (Last Reviewed 05/07/18 @ 15:29 by Emilie Marie) Acute on chronic diastolic CHF (congestive heart failure) (Acute) Pain on swallowing (Acute) Premature atrial contractions (Acute) Hypotension (Acute) Paroxysmal atrial tachycardia (Acute) Paroxysmal ventricular tachycardia (Acute) Premature ventricular contraction (Acute) Palpitations (Acute) RECOMMENDATIONS: 1. We will place orders for blood tests for vasculitis/rheumatologic etiologies as part of his secondary PH workup. These test results can be followed up upon as an outpatient. 2. No additional inpatient testing is required from my perspective at this time. 3. Continue current diuretic regimen, given underlying pulmonary hypertension. 4. Please ensure that the patient follows up in the pulmonary medicine clinic so that baseline PFTs can be obtained. 5. Perform walking oximetry study prior to consideration for discharge from the hospital. IMPRESSIONS: 1. Acute hypoxic respiratory insufficiency, now resolved The patient initially had a supplemental oxygen requirement, which was likely secondary to a combination of his new onset atrial fibrillation, decompensated heart failure, underlying pulmonary hypertension and presumptive COPD. He is currently on appropriate medical management for his underlying coronary disease and is being diuresed accordingly. He has been weaned to room air and is maintaining appropriate oxygen saturations. He does have significantly elevated pulmonary pressures noted on right heart catheterization, which could be secondary to a multitude of different contributing etiologies. The patient does have underlying heart failure and presumptive COPD. He will require an additional secondary pulmonary hypertension workup, which can be completed on an outpatient basis. I would first like to obtain baseline pulmonary function testing on him to first confirm or refute a diagnosis of COPD. In the interim, I will place an order to start a preliminary vasculitis/rheumatologic workup, which can be followed up upon as an outpatient. Recommend performing a walking oximetry study prior to consideration for discharge from the hospital. The patient states that he already has an established appointment with me to be seen in the pulmonary medicine clinic on June 17. 2. Presumptive COPD of unknown severity As noted above, recommend that the patient follow-up as scheduled so that baseline PFTs can be obtained. In the interim, I recommended that the patient remain on Spiriva and as needed albuterol. 3. Coronary artery disease/heart failure with preserved ejection fraction/pulmonary hypertension Continue current medical management per cardiology recommendations. We will continue workup on an outpatient basis for secondary pulmonary hypertension. 4. New onset atrial fibrillation Continue current rate control strategy, with plans for eventual anticoagulation initiation. This note was generated with [employer] dictation software. It may contain incorrect words, spelling, and punctuation that were not noted in checking the note before signing. DISPOSITION: Given that the patient has no active pulmonary needs that need to be addressed during this hospital admission, will sign off. The patient will follow up with me in the pulmonary medicine clinic, as previously scheduled, for additional testing and workup of his underlying possible obstructive lung disease and pulmonary hypertension. Code Visit Inpatient E&M: 22328 Init Hosp L3
[2018-05-28 08:22] LABS: Anisocytosis 3+; Platelet Estimate MKD DEC (ADEQ); Schistocytes 2+
[2018-05-28] MEDS: Lisinopril 2.5 MG Tablet PO (09:09)
[2018-05-28] MEDS: Aspirin E.C. 81 MG Tablet PO (09:09)
[2018-05-28] MEDS: Furosemide 40 MG/4 ML Vial IV (09:10)
[2018-05-28] MEDS: guaiFENesin 1,200 MG Tablet 1200 MG PO ×2 (09:10→21:12)
[2018-05-28] MEDS: 0.9% NaCl Peripheral Flush Adult/Peds IV (09:10)
[2018-05-28] MEDS: Metoprolol(XL)Succ 25 MG Tablet PO ×2 (09:10→21:12)
--- NOTE | 2018-05-28 10:28 | PCM.PN.CARD ---
Subjectve: The patient states he is feeling better and breathing better. He states his lower extremity edema is improving. He denies any ongoing acute chest discomfort. He notes no obvious palpitations or rapid rates. Objective: Vital Signs Temp Pulse Resp BP Pulse Ox 98.1 F 80 18 117/60 94 05/28/18 09:06 05/28/18 09:10 05/28/18 09:06 05/28/18 09:06 05/28/18 09:06 Oxygen Flow Rate (L/min) 2 Oxygen Delivery Method Room Air Weight: 220 lb 10.923 oz Body Mass Index (BMI) 31.5 Intake and Output for Last 24 Hours 05/26/18 05/27/18 05/28/18 23:59 23:59 23:59 Intake Total 240 / 240 2686 / 2686 340 / 340 Output Total 1200 / 1200 2195 / 2195 375 / 375 Balance -960 / -960 491 / 491 -35 / -35 General: Awake, Alert, Oriented x 3, Cooperative, No Acute Distress HEENT: Atraumatic, Normocephalic, PERRL, EOMI, Sclera Non Icteric Oral: Moist Mucosa Neck: Supple, Good ROM, No JVD Lungs: Rales - Shan Bases Cardiovascular: Irregular Rhythm, Normal S1, Normal S2 Vascular: Normal Femoral Pulses Abdomen: Bowel Sounds Present, Soft, Non Tender Extremities: Mild RLE Edema, Mild LLE Edema Neurological: No Focal Motor or Sensory Deficit Psych/Mental Status: Appropriate, Normal Affect 05/27/18 07:55: VBG pH 7.41, VBG pO2 34, VBG O2 Sat (Calc) 65, VBG O2 Content 28, VBG Base Excess 3 05/27/18 07:58: VBG pH 7.40, VBG pO2 30, VBG O2 Sat (Calc) 57, VBG O2 Content 29, VBG Base Excess 3 05/27/18 08:02: VBG pH 7.41, VBG pO2 30, VBG O2 Sat (Calc) 57, VBG O2 Content 29, VBG Base Excess 3 05/27/18 08:05: pH 7.43, Bicarbonate Actual 24.9, POC Total CO2 26, Base Excess 1, O2 Saturation 93 L, ABG pCO2 37.2, ABG pO2 66 L 05/28/18 06:37: WBC 3.5 L, RBC 3.42 L, Hgb 9.7 L, Hct 29.4 L, MCV 86.0, MCH 28.4, MCHC 33.0, RDW 22.1 H, RDW Differential 62.2 H, Plt Count 65 L, Immature Gran % (Auto) 0.600, Neut % (Auto) 71.1 H, Lymph % (Auto) 20.6, [place] % (Auto) 7.4, Eos % (Auto) 0.3, Baso % (Auto) 0.0, Absolute Neuts (auto) 2.5, Total Counted Not Reportable 05/28/18 06:37: Sodium 140, Potassium 4.2, Chloride 104, Carbon Dioxide 28.0, Anion Gap 8, BUN 17, Creatinine 1.46 H, Est GFR (MDRD) Af Amer 60, Est GFR (MDRD) Non-Af 49 L, BUN/Creatinine Ratio 11.6, Glucose 124 H, Calcium 8.5 05/28/18 06:37: Magnesium 1.9 Rhythm: Atrial fibrillation Medical Necessity - Tobacco Use Smoking Status: Former smoker Tobacco Use: Cigarettes Assessment/Plan 1. Atrial fibrillation The patient presents with atrial fibrillation. This may have attributed to his decompensation. At the present time he will continue rate control therapy. He has been evaluated by hematology/oncology with approval to proceed with antiplatelet therapy depending upon his platelet count. However, he ideally requires anticoagulant therapy. Thus their input would be most appreciated with respect to this issue. He will also be placed on antiarrhythmic therapy with amiodarone. Depending upon his clinical course, over time, consideration should be given to an attempt at regaining sinus rhythm which may help with respect to his underlying cardiovascular status and symptoms. This may come with medical management as well as an attempt at synchronized biphasic DC cardioversion therapy. 2. CAD He does have CAD. However he does not appear to require percutaneous intervention at this time. Thus he will continue medical management. 3. CHF: Acute diastolic Based upon his studies thus far he does not appear to have diminished LV systolic function. Thus his CHF appears to be related to acute diastolic dysfunction. At the present time he will need continued medical management. This will include attempts at atrial fibrillation rate control as well as eventual regaining sinus rhythm and medical management with respect to diuretic therapy. 4. Pulmonary hypertension His right sided/pulmonary pressures appear to be markedly elevated. 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 At the present time he will continue medical management. His case was discussed with Dr. Connloly of pulmonology. He will be evaluating him from a pulmonology standpoint. 5. Hyperlipidemia He will continue risk factor evaluation care as deemed appropriate. 6. Hypertension His blood pressures will be monitored during his clinical course. His medications can be adjusted as deemed appropriate. 7. Myelodysplastic syndrome The hematology oncology consultation is appreciated. It appears the patient can proceed with antiplatelet therapy depending upon his platelet count. Again their input with respect to anticoagulant therapy noting his underlying atrial dysrhythmia/fibrillation would be most appreciated. Comment: The patient's case was discussed at length with the patient, Dr. Connolly, and Dr. Khan. This note was generated with [employer] dictation software. It may contain incorrect words, spelling, and punctuation that were not noted in checking the note before signing.
[2018-05-28 11:17] LABS: Pathologist Review Reviewed
[2018-05-28 11:20] LABS: Bedside Glucose 191 mg/dL (70-110)
[2018-05-28] MEDS: Insulin Lispro 100 UNIT/ML INSULN.PEN SC (13:05)
--- NOTE | 2018-05-28 13:35 | PN_ITS ---
<Pamela Conte - Last Filed: 05/28/18 13:35> Patient Problems: Active and Suspected Problems (Last Reviewed 05/07/18 @ 15:29 by Emilie Marie) Acute on chronic diastolic CHF (congestive heart failure) (Acute) Subjective: Patient seen and examined. Denies current complaints. Wishes to return home as soon as possible. Denies shortness of breath, chest pain. - Physical Exam General: Alert, Oriented x3, Cooperative, No apparent distress HEENT: Atraumatic, PERRLA, EOMI, Normocephalic Neck: Supple, No JVD, Negative Carotid Bruits Lungs: Diminished, Rales Cardiovascular: Regular rate, Regular Rhythm, Normal S1, Normal S2, Murmur Abdomen: Bowel Sounds Present, Soft, Non Tender, Non-Distended Extremities: No clubbing, No cyanosis, Edema - Bilateral lower extremity Skin: No rashes, No breakdown Musculoskeletal: No Tenderness to Palpation of Joints or Extremities Neurological: Cranial nerves II-XII grossly intact, Neuro grossly intact Psych/Mental Status: Normal Affect, Appropriate Vital Signs Temp Pulse Resp BP Pulse Ox 98.1 F 72 18 117/60 94 05/28/18 09:06 05/28/18 11:01 05/28/18 09:06 05/28/18 09:06 05/28/18 09:06 Oxygen Flow Rate (L/min) 2 Oxygen Delivery Method Room Air Weight: 220 lb 10.923 oz Body Mass Index (BMI) 31.5 Intake and Output for Last 24 Hours 05/26/18 05/27/18 05/28/18 23:59 23:59 23:59 Intake Total 240 / 240 2686 / 2686 700 / 700 Output Total 1200 / 1200 2195 / 2195 725 / 725 Balance -960 / -960 491 / 491 -25 / -25 Laboratory Tests Past 24 Hrs 05/27/18 05/27/18 05/27/18 07:55 07:58 08:02 WBC RBC Hgb Hct MCV MCH MCHC RDW RDW Differential Plt Count Immature Gran % (Auto) Neut % (Auto) Lymph % (Auto) [place] % (Auto) Eos % (Auto) Baso % (Auto) Absolute Neuts (auto) Absolute Lymphs (auto) Total Counted Diff Path Review Platelet Estimate Anisocytosis Schistocytes Activated Clotting Time Specimen Type ESME ESME ESME pH Bicarbonate Actual POC Total CO2 Base Excess O2 Saturation ABG pCO2 ABG pO2 VBG pH 7.41 7.40 7.41 VBG pO2 34 30 30 VBG O2 Sat (Calc) 65 57 57 VBG O2 Content 28 29 29 VBG Base Excess 3 3 3 POC Mix VBG pCO2 Pt Tmp 42.7 44.7 43.9 Sodium Potassium Chloride Carbon Dioxide Anion Gap BUN Creatinine Estim Creat Clear Calc Est GFR (MDRD) Af Amer Est GFR (MDRD) Non-Af BUN/Creatinine Ratio Glucose Calcium Magnesium 05/27/18 05/27/18 05/27/18 08:05 09:10 11:35 WBC RBC Hgb Hct MCV MCH MCHC RDW RDW Differential Plt Count Immature Gran % (Auto) Neut % (Auto) Lymph % (Auto) [place] % (Auto) Eos % (Auto) Baso % (Auto) Absolute Neuts (auto) Absolute Lymphs (auto) Total Counted Diff Path Review Platelet Estimate Anisocytosis Schistocytes Activated Clotting Time 246 H 175 H Specimen Type ART pH 7.43 Bicarbonate Actual 24.9 POC Total CO2 26 Base Excess 1 O2 Saturation 93 L ABG pCO2 37.2 ABG pO2 66 L VBG pH VBG pO2 VBG O2 Sat (Calc) VBG O2 Content VBG Base Excess POC Mix VBG pCO2 Pt Tmp Sodium Potassium Chloride Carbon Dioxide Anion Gap BUN Creatinine Estim Creat Clear Calc Est GFR (MDRD) Af Amer Est GFR (MDRD) Non-Af BUN/Creatinine Ratio Glucose Calcium Magnesium 05/27/18 05/28/18 05/28/18 12:04 06:37 06:37 WBC 3.5 L RBC 3.42 L Hgb 9.7 L Hct 29.4 L MCV 86.0 MCH 28.4 MCHC 33.0 RDW 22.1 H RDW Differential 62.2 H Plt Count 65 L Immature Gran % (Auto) 0.600 Neut % (Auto) 71.1 H Lymph % (Auto) 20.6 [place] % (Auto) 7.4 Eos % (Auto) 0.3 Baso % (Auto) 0.0 Absolute Neuts (auto) 2.5 Absolute Lymphs (auto) 0.72 L Total Counted Not Reportable Diff Path Review Reviewed Platelet Estimate MKD DEC Anisocytosis 3+ Schistocytes 2+ H Activated Clotting Time 169 H Specimen Type pH Bicarbonate Actual POC Total CO2 Base Excess O2 Saturation ABG pCO2 ABG pO2 VBG pH VBG pO2 VBG O2 Sat (Calc) VBG O2 Content VBG Base Excess POC Mix VBG pCO2 Pt Tmp Sodium 140 Potassium 4.2 Chloride 104 Carbon Dioxide 28.0 Anion Gap 8 BUN 17 Creatinine 1.46 H Estim Creat Clear Calc 42.26 Est GFR (MDRD) Af Amer 60 Est GFR (MDRD) Non-Af 49 L BUN/Creatinine Ratio 11.6 Glucose 124 H Calcium 8.5 Magnesium 05/28/18 06:37 WBC RBC Hgb Hct MCV MCH MCHC RDW RDW Differential Plt Count Immature Gran % (Auto) Neut % (Auto) Lymph % (Auto) [place] % (Auto) Eos % (Auto) Baso % (Auto) Absolute Neuts (auto) Absolute Lymphs (auto) Total Counted Diff Path Review Platelet Estimate Anisocytosis Schistocytes Activated Clotting Time Specimen Type pH Bicarbonate Actual POC Total CO2 Base Excess O2 Saturation ABG pCO2 ABG pO2 VBG pH VBG pO2 VBG O2 Sat (Calc) VBG O2 Content VBG Base Excess POC Mix VBG pCO2 Pt Tmp Sodium Potassium Chloride Carbon Dioxide Anion Gap BUN Creatinine Estim Creat Clear Calc Est GFR (MDRD) Af Amer Est GFR (MDRD) Non-Af BUN/Creatinine Ratio Glucose Calcium Magnesium 1.9 POC Glucose 05/28/18 05/28/18 05/27/18 11:02 06:50 21:00 POC Glucose 191 H 120 H 104 05/27/18 16:39 POC Glucose 156 H Medical Necessity - Tobacco Use Smoking Status: Former smoker Tobacco Use: Cigarettes Assessment/Plan All Active Problems (Last Reviewed 05/07/18 @ 15:29 by Emilie Marie) Acute on chronic diastolic CHF (congestive heart failure) (Acute) Pain on swallowing (Acute) Premature atrial contractions (Acute) Hypotension (Acute) Paroxysmal atrial tachycardia (Acute) Paroxysmal ventricular tachycardia (Acute) Premature ventricular contraction (Acute) Palpitations (Acute) 1. Acute on chronic diastolic CHF-BNP on admission 282. Chest x-ray on admission with small right pleural effusion. Stress test December 2017 which was normal. LVEF 54%. Patient underwent cardiac catheterization with FFR due to ongoing dyspnea with exertion. Negative FFR of proximal LAD. Patient did not require intervention. Cardiology recommending aspirin indefinitely, Plavix for 12 months. Patient follows with Dr. Moodispaw. Continue Lasix 40 mg IV twice daily. Strict I&O. Daily weight. Continue lisinopril. Echocardiogram pending. Pulmonary consult for elevated pulmonary hypertension noted on cath. Patient has upcoming appointment with Dr. Connolly 06/17/2018 for COPD. 2. Atrial fibrillation with RVR-rate controlled. Continue metoprolol regimen. Cardiology following. Initiated on amiodarone today. Oncology consulted. Okay with addition of aspirin and Plavix. 3. Low-grade MDS- Follows with Dr. Prah. Olivera. Consult oncology given recommended addition of plavix/aspirin. Okay with antiplatelets as long as platelets are above 50. Will further contact oncology to gain recommendations on oral anticoagulation. 4. Chronic kidney disease stage III-stable, trend BMP. 5. Chronic COPD-no acute exacerbation. 6. Type 2 diabetes mellitus-hold home metformin regimen. Accu-Cheks before meals at bedtime with sliding scale insulin. 7. Hypertension-stable, continue home regimen including lisinopril, metoprolol. 8. BPH-continue Flomax regimen. DVT prophylaxis-hold anticoagulation secondary to #3. SCDs. This patient was seen by MANUELA Downey under the supervision of Dr. Khan. <Mic Khan - Last Filed: 05/28/18 15:05> - Physical Exam Vital Signs Temp Pulse Resp BP Pulse Ox 98.4 F 69 18 98/40 L 95 05/28/18 14:50 05/28/18 14:50 05/28/18 14:50 05/28/18 14:50 05/28/18 14:50 Oxygen Flow Rate (L/min) 2 Oxygen Delivery Method Room Air Weight: 100.1 kg Body Mass Index (BMI) 31.5 Intake and Output for Last 24 Hours 05/26/18 05/27/18 05/28/18 23:59 23:59 23:59 Intake Total 240 / 240 2686 / 2686 700 / 700 Output Total 1200 / 1200 2195 / 2195 725 / 725 Balance -960 / -960 491 / 491 -25 / -25 Laboratory Tests Past 24 Hrs 05/28/18 05/28/18 05/28/18 06:37 06:37 06:37 WBC 3.5 L RBC 3.42 L Hgb 9.7 L Hct 29.4 L MCV 86.0 MCH 28.4 MCHC 33.0 RDW 22.1 H RDW Differential 62.2 H Plt Count 65 L Immature Gran % (Auto) 0.600 Neut % (Auto) 71.1 H Lymph % (Auto) 20.6 [place] % (Auto) 7.4 Eos % (Auto) 0.3 Baso % (Auto) 0.0 Absolute Neuts (auto) 2.5 Absolute Lymphs (auto) 0.72 L Total Counted Not Reportable Diff Path Review Reviewed Platelet Estimate MKD DEC Anisocytosis 3+ Schistocytes 2+ H Sodium 140 Potassium 4.2 Chloride 104 Carbon Dioxide 28.0 Anion Gap 8 BUN 17 Creatinine 1.46 H Estim Creat Clear Calc 42.26 Est GFR (MDRD) Af Amer 60 Est GFR (MDRD) Non-Af 49 L BUN/Creatinine Ratio 11.6 Glucose 124 H Calcium 8.5 Magnesium 1.9 Rheumatoid Factor Cycl Citrul Peptide IgG TIFFANI Screen c-ANCA Antibody p-ANCA Antibody KAREEM-1 Antibody SS-A/Ro IgG Antibody SS-B/La IgG Antibody Sm ([place]) Antibody [employer] Antibody Scl-70 Scleroderma Ab Double Strand DNA Ab Centromere B Antibody 05/28/18 05/28/18 05/28/18 06:37 13:36 13:36 WBC RBC Hgb Hct MCV MCH MCHC RDW RDW Differential Plt Count Immature Gran % (Auto) Neut % (Auto) Lymph % (Auto) [place] % (Auto) Eos % (Auto) Baso % (Auto) Absolute Neuts (auto) Absolute Lymphs (auto) Total Counted Diff Path Review Platelet Estimate Anisocytosis Schistocytes Sodium Potassium Chloride Carbon Dioxide Anion Gap BUN Creatinine Estim Creat Clear Calc Est GFR (MDRD) Af Amer Est GFR (MDRD) Non-Af BUN/Creatinine Ratio Glucose Calcium Magnesium Rheumatoid Factor < 10.0 Cycl Citrul Peptide IgG Pending TIFFANI Screen Pending c-ANCA Antibody Pending p-ANCA Antibody Pending KAREEM-1 Antibody Pending SS-A/Ro IgG Antibody Pending SS-B/La IgG Antibody Pending Sm ([place]) Antibody Pending [employer] Antibody Pending Scl-70 Scleroderma Ab Pending Double Strand DNA Ab Pending Centromere B Antibody Pending POC Glucose 05/28/18 05/28/18 05/27/18 11:02 06:50 21:00 POC Glucose 191 H 120 H 104 05/27/18 16:39 POC Glucose 156 H Assessment/Plan This patient was seen in conjunction with MANUELA Downey. I have independently interviewed and examined the patient and reviewed pertinent historical, laboratory, and other data. Please refer to MANUELA Downey note for details of this patient's presentation, findings, and recommendations. I have reviewed MANUELA Downey note and concur with documented findings. In brief, patient is a 82-year-old gentleman who was admitted with progressive shortness of breath and assessment of acute on chronic diastolic heart failure made admitted to a monitored bed for further management. Cardiology was consulted patient underwent left heart catheterization on 05/27/2018. Patient was found to have a 60% proximal LAD lesion with a reported negative FFR 05/28/2018; consultation was placed to both oncology as well as pulmonary medicine. Patient was seen by Dr. Connolly with pulmonary medicine who recommended for patient to undergo subsequent studies to rule out vasculitis or other rheumatologic etiology to explain for his pulmonary hypertension Physical Examination: GENERAL: cooperative HEENT: Atraumatic; EYES; Anicteric, NECK; supple, normal thyroid, RESPIRATORY: Diminished to auscultation bilaterally, CARDIOVASCULAR: Regular S1 S2, GI: soft, non-tender, normoactive bowel sounds, : No Renal angle tenderness; NEURO: Awake; no lateralizing signs. SKIN: No Rash Assessment: 1. Acute on chronic diastolic 2. Coronary artery disease left heart catheterization on 05/27/2018 demonstrated a 60% proximal LAD lesion with a reported negative FFR 3. Paroxysmal atrial fibrillation 4. Essential hypertension 5. Myelodysplastic syndrome 6. BPH 7. Chronic COPD- 8. Diabetes mellitus type 2 9. Pulmonary hypertension Recommendations: 1. I have discussed the results of my overview and impressions with the patient 2. Options for management were reviewed Code Visit Inpatient E&M: 20389 Subs Hosp L2
[2018-05-28 13:51] LABS: Rheumatoid Factor < 10.0 IU/mL (<15)
[2018-05-28] MEDS: Tamsulosin HCl 0.4 MG Capsule PO (17:21)
[2018-05-28 17:31] LABS: Bedside Glucose 143 mg/dL (70-110)
[2018-05-28] MEDS: Ipratropium 0.5 MG/2.5 ML SOLUTION INHALATION (19:42)
[2018-05-28] MEDS: APIXABAN 2.5 MG TABLET PO (21:12)
[2018-05-28] MEDS: Atorvastatin Calcium 10 MG Tablet PO (21:12)
[2018-05-28 22:56] LABS: Bedside Glucose 134 mg/dL (70-110)
[2018-05-29] VITALS (8 sets, daily range): BP systolic 91–103; BP diastolic 49–51; PULSE 67–80; RESP 14–16; TEMP 36.4–36.7; O2SAT 94–95
[2018-05-29] MEDS: Amiodarone 200 MG Tablet PO (06:14)
[2018-05-29 06:51] LABS: Bedside Glucose 153 mg/dL (70-110)
[2018-05-29] MEDS: Ipratropium 0.5 MG/2.5 ML SOLUTION INHALATION (07:05)
[2018-05-29 07:53] LABS: Absolute Lymphocyte Count 0.65 X10^3/ul (0.83-4.51); Absolute Neutrophil Count 2.8 X10^3/uL (2.0-7.7); Basophil# 0.01 X10^3/uL; Basophil% 0.3 % (0-1); Eosinophil# 0.03 X10^3/uL; Eosinophils% 0.8 % (0-5); Hematocrit 28.4 % (40-54); Hemoglobin 9.3 g/dl (13.0-16.5); Lymphocyte # 0.65 X10^3/ul (4.0); Mean Corp Hgb Conc 32.7 g/gl (32-36); Mean Corpuscular Volume 85.5 fL (80-94); Monocyte# 0.32 X10^3/uL; Monocyte% 8.4 % (0-10); Neutrophil # 2.79 X10^3/uL (2.7-7.7); Neutrophil % 72.7 % (47-70); Platelet Count 68 K/mm3 (150-450); RBC Distribution Width CV 21.9 % (11.6-14.6); RBC Distribution Width SD 62.8 fl (35.1-43.9); Red Blood Count 3.32 M/mm3 (4.6-6.2); White Blood Count 3.8 K/mm3 (4.4-11.0)
[2018-05-29 07:54] LABS: Differential Indicated SCAN CRITERIA MET; POSITIVE COUNT NO; POSITIVE DIFFERENTIAL NO; POSITIVE MORPHOLOGY YES
[2018-05-29 08:07] LABS: Anion Gap 6 (5-15); BUN 24 mg/dL (7-18); BUN/Creat Ratio 13.9 RATIO (10-20); Calcium,Total 8.4 mg/dL (8.5-10.1); Chloride 105 mmol/L (98-107); Creatinine, Serum 1.73 mg/dL (0.70-1.30); EST Glomerular Filtration Rate 40 mL/min (>60); Est Glom Filt Rate - Afr Amer 49 mL/min (>60); Estimated Creatinine Clearance 35.67 ml/min; Glucose 126 mg/dL (74-106); Sodium Level 139 mmol/L (136-145)
[2018-05-29 08:23] LABS: Anisocytosis 1+; Hypochromasia 1+; Ovalocyte 1+; Platelet Estimate MKD DEC (ADEQ); Schistocytes 1+
[2018-05-29] MEDS: Polyethylene Glycol 3350 17 GM PACKET PO (08:38)
[2018-05-29] MEDS: Insulin Lispro 100 UNIT/ML INSULN.PEN SC (08:39)
[2018-05-29] MEDS: metFORMIN HCl 1,000 MG Tablet 1000 MG PO (08:39)
[2018-05-29] MEDS: APIXABAN 2.5 MG TABLET PO (08:39)
[2018-05-29] MEDS: Furosemide 40 MG Tablet PO (08:40)
[2018-05-29] MEDS: guaiFENesin 1,200 MG Tablet 1200 MG PO (08:40)
[2018-05-29] MEDS: Lisinopril 2.5 MG Tablet PO (08:40)
[2018-05-29] MEDS: Metoprolol(XL)Succ 25 MG Tablet PO (08:40)
[2018-05-29 11:27] LABS: Bedside Glucose 120 mg/dL (70-110)
--- NOTE | 2018-05-29 11:41 | DCINST_ITS ---
- Discharge Diagnoses Current Active Problems: Current Active and Chronic Problems (Last Reviewed 05/07/18 @ 15:29 by Emilie Marie) Acute on chronic diastolic CHF (congestive heart failure) (Acute) Anemia (Chronic) Thrombocytopenia (Chronic) You will use the following diet at home:: Cardiac Discharge Activity: Return to Normal Activity Call your doctor if you observe: Shortness of breath, Dizziness, Fainting spells, Swelling in the ankles, Chest pain Allergies/Adverse Reactions: Allergies codeine Adverse Reaction (Severe, Verified 05/26/18 11:33) Unknown Medications to take at Discharge apple cider vinegar 300 mg tablet 450 mg PO DAILY 09/15/17 multivitamin with iron tablet 1 tab PO QDAY 09/15/17 mecobalamin (vitamin B12) 1,000 mcg disintegrating tablet,sublingual 1,000 mcg SUBLINGUAL QDAY 09/25/17 albuterol sulfate HFA 90 mcg/actuation aerosol inhaler 1 puff INHALATION Q6H PRN #8.5 g 04/28/18 Guaifenesin [Guaifenesin ER] 1,200 mg PO Q12H 05/26/18 Lisinopril [Zestril] 2.5 mg PO QDAY 05/26/18 Metformin HCl [Glucophage] 1,000 mg PO DAILY 05/26/18 Simvastatin 20 mg PO QHS 05/26/18 Tamsulosin HCl [Flomax] 0.4 mg PO DAILY 05/26/18 Tiotropium [place] [Spiriva] 1 cap INHALATION DAILY 05/26/18 Amiodarone HCl [Cordarone] 200 mg PO TID #90 tablet 05/29/18 Apixaban [Eliquis] 2.5 mg PO BID #60 tablet 05/29/18 Furosemide [Lasix] 40 mg PO DAILY #30 tablet 05/29/18 Metoprolol(XL)Succ [Toprol Xl (Beta Phill)] 25 mg PO BID #60 tablet 05/29/18 The following prescriptions were given: Furosemide [Lasix] 40 mg PO DAILY #30 tablet Apixaban [Eliquis] 2.5 mg PO BID #60 tablet Metoprolol(XL)Succ [Toprol Xl (Beta Phill)] 25 mg PO BID #60 tablet Amiodarone HCl [Cordarone] 200 mg PO TID #90 tablet Primary Care Physician: Roc Martinez MD [Primary Care Provider] - Please follow up with your Primary Care Physician in: 1 Week Test Results: Test results from this visit will be discussed in further detail at your follow- up appointment, if applicable. Please Follow Up With: Marcelo Reynolds MD When: 1-2 Weeks Please Follow Up With: Jasmeet Connolly DO When: As scheduled, 06/17/18 Please Follow Up With: Yonny Woody MD When: As scheduled Proposed Discharge Date: 05/29/18
--- NOTE | 2018-05-29 11:55 | DS.PCM_ITS ---
<Pamela Conte - Last Filed: 05/29/18 11:56> Discharge Date and Diagnosis Date of Admission: 05/26/18 Date of Discharge: 05/29/18 - Primary Discharge Diagnosis Active and Suspected Problems (Last Reviewed 05/07/18 @ 15:29 by Emilie Marie) 1. Acute on chronic diastolic CHF 2. Atrial fibrillation with RVR 3. Low-grade MDS 4. Acute kidney injury on chronic kidney disease stage III 5. Chronic COPD 6. Type 2 diabetes mellitus 7. Hypertension 8. BPH - Secondary Discharge Diagnosis Chronic Problems (Last Reviewed 05/07/18 @ 15:29 by Emilie Marie) Anemia (Chronic) Thrombocytopenia (Chronic) MDS (myelodysplastic syndrome), low grade (Chronic) HTN (hypertension) (Chronic) Hyperlipidemia (Chronic) Hypertension (Chronic) Hyperlipemia (Chronic) Type 2 diabetes mellitus (Chronic) COPD (chronic obstructive pulmonary disease) (Chronic) Hospital Course and Treatment Imaging Results: Diagnostic Data Chest X-Ray 05/26/18 11:57 IMPRESSION: Low lung volumes. Small right pleural effusion. No evidence of acute failure. Stable cardiomegaly. Electronically Signed: Juana Schulz MD at 13:02 EDT , Service support , Dr. Reynolds-Cardiology Dr. Connolly- Pulmonary Operations: None Procedures: None Summary of Care Provided: The patient is a 82 year old M admitted 05/26/2018 due to exertional dyspnea and lower extremity swelling. 1. Acute on chronic diastolic CHF-BNP on admission 282. Chest x-ray on admission with small right pleural effusion. Stress test December 2017 which was normal. LVEF 54%. Patient underwent cardiac catheterization with FFR due to ongoing dyspnea with exertion. Negative FFR of proximal LAD. Patient did not require intervention. Patient follows with Dr. Reynolds. Continue Lasix 40 mg p.o. daily at discharge. Continue lisinopril 2.5 mg daily. Patient to follow up with pulmonary medicine for evaluation for for elevated pulmonary pressures. He has follow-up with Dr. Connolly 06/17/2018. Patient will follow up with Dr. Reynolds in 1-2 weeks. 2. Atrial fibrillation with RVR-remains atrial fibrillation, rate controlled. Home metoprolol regimen increased to 25 mg twice daily. Amiodarone initiated during admission. Patient will take amiodarone 200 mg p.o. 3 times daily times 1 week then 200 mg p.o. twice daily times 2 weeks then 200 mg p.o. daily. Patient started on Eliquis 2.5 mg twice daily. Follow-up with cardiology in 1-2 weeks as noted above. 3. Low-grade MDS- Follows with Dr. Prah. Olivera. Oncology consulted given recommended anticoagulation. Okay with anticoagulation as long as platelets are above 50. Continue outpatient follow-up with oncology for routine monitoring of blood work. 4. Acute kidney injury on chronic kidney disease stage III-ROMAIN secondary to diuretics. Repeat BMP in 3 days. 5. Chronic COPD-no acute exacerbation. 6. Type 2 diabetes mellitus-continue home metformin regimen. 7. Hypertension-stable, continue home regimen including lisinopril, metoprolol, amio. 8. BPH-continue Flomax regimen. General: Alert, Oriented x3, Cooperative, No apparent distress HEENT: Atraumatic, PERRLA, EOMI, Normocephalic Neck: Supple, No JVD, Negative Carotid Bruits Lungs: Diminished, clear to auscultation Cardiovascular: Regular rate, Regular Rhythm, Normal S1, Normal S2, Murmur Abdomen: Bowel Sounds Present, Soft, Non Tender, Non-Distended Extremities: No clubbing, No cyanosis, Edema - Bilateral lower extremity Skin: No rashes, No breakdown Musculoskeletal: No Tenderness to Palpation of Joints or Extremities Neurological: Cranial nerves II-XII grossly intact, Neuro grossly intact Psych/Mental Status: Normal Affect, Appropriate Patient seen exam prior to discharge. Physical assessment as noted above. Patient stable for discharge home with the follow-up her conditions as noted above. This patient was seen by MANUELA Downey under the supervision of Dr. Khan. - Physical Exam Vital Signs Temp Pulse Resp BP Pulse Ox 98.1 F 78 14 103/51 L 95 05/29/18 09:05 05/29/18 11:00 05/29/18 09:05 05/29/18 09:05 05/29/18 09:05 Oxygen Flow Rate (L/min) 2 Oxygen Delivery Method Room Air Weight: 220 lb 0.341 oz Body Mass Index (BMI) 31.5 Intake and Output for Last 24 Hours 05/27/18 05/28/18 05/29/18 23:59 23:59 23:59 Intake Total 2686 / 2686 880 / 880 60 / 60 Output Total 2195 / 2195 1125 / 1125 125 / 125 Balance 491 / 491 -245 / -245 -65 / -65 Laboratory Tests Past 24 Hrs 05/28/18 05/28/18 05/28/18 06:37 13:36 13:36 WBC RBC Hgb Hct MCV MCH MCHC RDW RDW Differential Plt Count MPV Immature Gran % (Auto) Neut % (Auto) Lymph % (Auto) Meeker % (Auto) Eos % (Auto) Baso % (Auto) Absolute Neuts (auto) Absolute Lymphs (auto) Total Counted Platelet Estimate Hypochromasia Anisocytosis Ovalocytes Schistocytes Sodium Potassium Chloride Carbon Dioxide Anion Gap BUN Creatinine Estim Creat Clear Calc Est GFR (MDRD) Af Amer Est GFR (MDRD) Non-Af BUN/Creatinine Ratio Glucose Calcium Rheumatoid Factor < 10.0 Cycl Citrul Peptide IgG Pending TIFFANI Screen Pending c-ANCA Antibody Pending p-ANCA Antibody Pending KAREEM-1 Antibody Pending SS-A/Ro IgG Antibody Pending SS-B/La IgG Antibody Pending Sm (Valera) Antibody Pending MACHINE SETTER SUPERVISOR Antibody Pending Scl-70 Scleroderma Ab Pending Double Strand DNA Ab Pending Centromere B Antibody Pending 05/29/18 05/29/18 07:20 07:20 WBC 3.8 L RBC 3.32 L Hgb 9.3 L Hct 28.4 L MCV 85.5 MCH 28.0 MCHC 32.7 RDW 21.9 H RDW Differential 62.8 H Plt Count 68 L MPV TNP Immature Gran % (Auto) 0.800 Neut % (Auto) 72.7 H Lymph % (Auto) 17.0 L Meeker % (Auto) 8.4 Eos % (Auto) 0.8 Baso % (Auto) 0.3 Absolute Neuts (auto) 2.8 Absolute Lymphs (auto) 0.65 L Total Counted Not Reportable Platelet Estimate MKD DEC Hypochromasia 1+ Anisocytosis 1+ Ovalocytes 1+ Schistocytes 1+ Sodium 139 Potassium 4.0 Chloride 105 Carbon Dioxide 28.0 Anion Gap 6 BUN 24 H Creatinine 1.73 H Estim Creat Clear Calc 35.67 Est GFR (MDRD) Af Amer 49 L Est GFR (MDRD) Non-Af 40 L BUN/Creatinine Ratio 13.9 Glucose 126 H Calcium 8.4 L Rheumatoid Factor Cycl Citrul Peptide IgG TIFFANI Screen c-ANCA Antibody p-ANCA Antibody KAREEM-1 Antibody SS-A/Ro IgG Antibody SS-B/La IgG Antibody Sm (Valera) Antibody MACHINE SETTER SUPERVISOR Antibody Scl-70 Scleroderma Ab Double Strand DNA Ab Centromere B Antibody POC Glucose 05/29/18 05/29/18 05/28/18 11:18 06:48 21:09 POC Glucose 120 H 153 H 134 H 05/28/18 17:18 POC Glucose 143 H Discharge Diet: Low fat/ Low Cholesterol Discharge Activity: Return to Normal Activity Call your doctor if you observe: Shortness of breath, Dizziness, Fainting spells, Swelling in the ankles, Chest pain Home Medications: Medications to take at Discharge apple cider vinegar 300 mg tablet 450 mg PO DAILY 09/15/17 multivitamin with iron tablet 1 tab PO QDAY 09/15/17 mecobalamin (vitamin B12) 1,000 mcg disintegrating tablet,sublingual 1,000 mcg SUBLINGUAL QDAY 09/25/17 albuterol sulfate HFA 90 mcg/actuation aerosol inhaler 1 puff INHALATION Q6H PRN #8.5 g 04/28/18 Guaifenesin [Guaifenesin ER] 1,200 mg PO Q12H 05/26/18 Lisinopril [Zestril] 2.5 mg PO QDAY 05/26/18 Metformin HCl [Glucophage] 1,000 mg PO DAILY 05/26/18 Simvastatin 20 mg PO QHS 05/26/18 Tamsulosin HCl [Flomax] 0.4 mg PO DAILY 05/26/18 Tiotropium [place] [Spiriva] 1 cap INHALATION DAILY 05/26/18 Amiodarone HCl [Cordarone] 200 mg PO TID #90 tablet 05/29/18 Apixaban [Eliquis] 2.5 mg PO BID #60 tablet 05/29/18 Furosemide [Lasix] 40 mg PO DAILY #30 tablet 05/29/18 Metoprolol(XL)Succ [Toprol Xl (Beta Phill)] 25 mg PO BID #60 tablet 05/29/18 Following Prescrptions Were Given to Patient: Furosemide [Lasix] 40 mg PO DAILY #30 tablet Apixaban [Eliquis] 2.5 mg PO BID #60 tablet Metoprolol(XL)Succ [Toprol Xl (Beta Phill)] 25 mg PO BID #60 tablet Amiodarone HCl [Cordarone] 200 mg PO TID #90 tablet Other Amb Orders: Basic Metabolic Profile (BMP) Time Frame: 3 Days, Location: Laboratory Primary Care Physician: Roc Martinez MD [Primary Care Provider] - Please follow up with your Primary Care Physician in: 1 Week Please Follow Up With: Marcelo Reynolds MD When: 1-2 Weeks Please Follow Up With: Jasmeet Connolly DO When: As scheduled, 06/17/18 Please Follow Up With: Yonny Woody MD When: As scheduled Disposition: Home Minutes spent on discharge:: 35 Patient Condition:: Stable Medical Necessity - Tobacco Use Smoking Status: Former smoker Tobacco Use: Cigarettes Meaningful Use Info Meaningful Use Diagnoses (Choose all that apply): CHF - CHF RORY/ARB ordered at discharge?: Yes Documented LVEF (%): 54 <Mic Khan - Last Filed: 05/29/18 14:26> Discharge Date and Diagnosis - Secondary Discharge Diagnosis Chronic Problems (Last Reviewed 05/07/18 @ 15:29 by Emilie Marie) Anemia (Chronic) Thrombocytopenia (Chronic) MDS (myelodysplastic syndrome), low grade (Chronic) HTN (hypertension) (Chronic) Hyperlipidemia (Chronic) Hypertension (Chronic) Hyperlipemia (Chronic) Type 2 diabetes mellitus (Chronic) COPD (chronic obstructive pulmonary disease) (Chronic) Hospital Course and Treatment Summary of Care Provided: This patient was seen in conjunction with MANUELA Downey. I have independently interviewed and examined the patient and reviewed pertinent historical, laboratory, and other data. Please refer to MANUELA Downey note for details of this patient's presentation, findings, and recommendations. I have reviewed MANUELA Downey note and concur with documented findings. In brief, patient is a 82-year-old gentleman who was admitted with progressive shortness of breath and assessment of acute on chronic diastolic heart failure made admitted to a monitored bed for further management. Cardiology was consulted patient underwent left heart catheterization on 05/27/2018. Patient was found to have a 60% proximal LAD lesion with a reported negative FFR Assessment: 1. Acute on chronic diastolic CHF 2. Coronary artery disease left heart catheterization on 05/27/2018 demonstrated a 60% proximal LAD lesion with a reported negative FFR 3. Paroxysmal atrial fibrillation 4. Essential hypertension 5. Myelodysplastic syndrome 6. BPH 7. Chronic COPD- 8. Diabetes mellitus type 2 9. Pulmonary hypertension Hospital course: As elicited above by Pamela Conte Time spent on discharge; 40 minutes - Physical Exam Vital Signs Temp Pulse Resp BP Pulse Ox 98.1 F 78 14 103/51 L 95 05/29/18 09:05 05/29/18 11:00 05/29/18 09:05 05/29/18 09:05 05/29/18 09:05 Oxygen Flow Rate (L/min) 2 Oxygen Delivery Method Room Air Weight: 99.8 kg Body Mass Index (BMI) 31.5 Intake and Output for Last 24 Hours 05/27/18 05/28/18 05/29/18 23:59 23:59 23:59 Intake Total 2686 / 2686 880 / 880 410 / 410 Output Total 2195 / 2195 1125 / 1125 125 / 125 Balance 491 / 491 -245 / -245 285 / 285 Laboratory Tests Past 24 Hrs 05/29/18 05/29/18 07:20 07:20 WBC 3.8 L RBC 3.32 L Hgb 9.3 L Hct 28.4 L MCV 85.5 MCH 28.0 MCHC 32.7 RDW 21.9 H RDW Differential 62.8 H Plt Count 68 L MPV TNP Immature Gran % (Auto) 0.800 Neut % (Auto) 72.7 H Lymph % (Auto) 17.0 L Meeker % (Auto) 8.4 Eos % (Auto) 0.8 Baso % (Auto) 0.3 Absolute Neuts (auto) 2.8 Absolute Lymphs (auto) 0.65 L Total Counted Not Reportable Platelet Estimate MKD DEC Hypochromasia 1+ Anisocytosis 1+ Ovalocytes 1+ Schistocytes 1+ Sodium 139 Potassium 4.0 Chloride 105 Carbon Dioxide 28.0 Anion Gap 6 BUN 24 H Creatinine 1.73 H Estim Creat Clear Calc 35.67 Est GFR (MDRD) Af Amer 49 L Est GFR (MDRD) Non-Af 40 L BUN/Creatinine Ratio 13.9 Glucose 126 H Calcium 8.4 L POC Glucose 05/29/18 05/29/18 05/28/18 11:18 06:48 21:09 POC Glucose 120 H 153 H 134 H 05/28/18 17:18 POC Glucose 143 H Code Visit Inpatient E&M: 58136 Disch Hosp
--- NOTE | 2018-05-29 12:11 | CASEMGMT ---
Per [employer], pt to be sent home on [employer] and per [facility], pt's co-pay is $50 at this time. Pt provided with [employer] 30 day free trial card at this time. Filippo FLOYD CM
[2018-05-31 14:07] LABS: ANTINUCLEAR ANTIBODIES DIRECT Positive (Negative); Anti-Centromere B Ab <0.2 AI (0.0-0.9); Anti-Chromatin <0.2 AI (0.0-0.9); Anti-Jo <0.2 AI (0.0-0.9); Anti-Scleroderma-70 AB <0.2 AI (0.0-0.9); RNP Ab 5.6 AI (0.0-0.9); SJOGREN'S Anti-SS-A test < 0.2 AI (0.0-0.9); SJOGREN'S Anti-SS-B test < 0.2 AI (0.0-0.9); Smith Ab <0.2 AI (0.0-0.9)
[2018-05-31 16:16] LABS: Anti-dsDNA Ab <1 IU/mL (0-9)
--- NOTE | 2018-06-01 15:29 | CASEMGMT ---
RN CM Discharge F/U Phone Call LACE: 11 Strata: 3 Discharge date: 05/29/18 Call date: 06/01/18 Call time: 1529 Attempted to reach pt at this time without success, message left for pt to call this RN CM back when able. S[place]en RN CM Admission dx: CAP, Pneumonia, COPD flare
[2018-06-01 22:08] LABS: Cytoplasmic Ab (C-ANCA) <1:20 titer (Neg:<1:20)
[2018-06-02 14:29] LABS: CCP IgG Antibodies 4 units (0-19); Perinuclear Ab (P-ANCA) <1:20 titer (Neg:<1:20)
== END 2018-05-29 12:34 | disposition home or self-care (01) | DRG 286 ==
LOC: ED 12:20 → MS2 12:50 → PCU 14:54
PROVIDERS: Internal Medicine Cardiovascular Disease; Internal Medicine Critical Care Medicine; Student in an Organized Health Care Education/Training Program; Admitting Provider Internal Medicine; Emergency Provider Emergency Medicine; Family Provider Internal Medicine; PCP Internal Medicine; Referring Provider Internal Medicine; Visit Provider Internal Medicine
DX: I13.0 Hypertensive heart and chronic kidney disease with heart failure and stage 1 through stage 4 chronic kidney disease, or unspecified chronic kidney disease (principal); I50.33 Acute on chronic diastolic (congestive) heart failure; N17.9 Acute kidney failure, unspecified; N18.3 Chronic kidney disease, stage 3 (moderate); E11.22 Type 2 diabetes mellitus with diabetic chronic kidney disease; D46.20 Refractory anemia with excess of blasts, unspecified; Z23 Encounter for immunization; T50.2X5A Adverse effect of carbonic-anhydrase inhibitors, benzothiadiazides and other diuretics, initial encounter; N40.0 Benign prostatic hyperplasia without lower urinary tract symptoms; D69.6 Thrombocytopenia, unspecified; E78.5 Hyperlipidemia, unspecified; J44.9 Chronic obstructive pulmonary disease, unspecified; I48.91 Unspecified atrial fibrillation; I25.10 Atherosclerotic heart disease of native coronary artery without angina pectoris; Z87.891 Personal history of nicotine dependence; Z79.84 Long term (current) use of oral hypoglycemic drugs
CPT/HCPCS: 36415; 71045; 80048; 81001; 82803; 82962; 83735; 83880; 84484; 85025; 85347; 85610; 85730; 86038; 86200; 86225; 86235; 86256; 86431; 93005; 93306; 93460; 93567; 93571; 94640; 97802; 99152; 99153; 99283; J0153; J7030; 90686; A4216; C1751; C1769; C1887; C1894; J1940; Q9967

== ENCOUNTER → 2018-06-02 06:31 | Outpatient (CLI) | payer MEDICARE, OTHER, SELFPAY ==
--- NOTE | 2018-06-02 14:53 | PFTCOMP ---
COMPLETE PULMONARY FUNCTION TEST INTERPRETATION Brief HPI: Patient is an 82 year old male, currently under the care of Dr. Connolly, who presents to [facility] for complete pulmonary function tests secondary to diagnosis of COPD. Respiratory therapist reports good effort and reproducible results. Interpretation: Forced expiration spirometry shows a moderately-severe large airways obstructive ventilatory defect with an FEV1 of 55% predicted. There is no significant bronchodilator response by ATS criteria. Spirograms are of good quality and plateau slowly, indicating slowly emptying areas of the lungs. The respiratory flow volume loop shows decreased expiratory flow rates at high lung volumes consistent with small airways obstruction. Lung volumes by body plethysmography show a decreased total lung capacity at 4.5 L, 71% predicted. All other lung volumes are within normal limits. Diffusion capacity by carbon monoxide is decreased at 53% predicted. The airway resistance is elevated. No previous pulmonary function tests were available for review. Impression: Moderately severe mixed ventilatory defect with no significant response to bronchodilators and symmetric reduction in diffusing capacity.
== END ==
PROVIDERS: Family Provider Internal Medicine; PCP Internal Medicine; Referring Provider Nurse Practitioner Acute Care; Visit Provider Nurse Practitioner Acute Care
DX: R06.02 Shortness of breath (principal)
CPT/HCPCS: 94060; 94726; 94729

== ENCOUNTER → 2018-06-03 10:44 | Outpatient (CLI) | payer MEDICARE, OTHER, SELFPAY ==
[2018-06-03 11:00] VITALS: PULSE 64; PULSE 66; PULSE 75; PULSE 80; PULSE 83; PULSE 84; PULSE 88; PULSE 90; O2SAT 89; O2SAT 90; O2SAT 91; O2SAT 95; O2SAT 97; O2SAT 98
--- NOTE | 2018-06-03 16:05 | WT_ITS ---
PSN 6 Minute Walk Test - 6 Minute Walk Test 6 Minute Walk Test: 6 Minute Walk Test PSN:6-Minute Walk Test Start: 06/03/18 11:12 Freq: Status: Active Protocol: [id number] Document 06/03/18 11:00 HG (Rec: 06/03/18 11:14 HG [id number]) 6 Minute Walk Test Date Performed 06/03/18 Time Performed 11:00 Height 5 ft 10 in Weight: 102.058 kg Weight in Pounds 225.[address]: Jenna Gerber Assistive device used: None Pre-test Oxygen Delivery Method Room Air Pulse Ox (%) 98 Pulse Rate (60-100 beats/min) 75 Dyspnea Ginna Scale (0-10) 2 Exertion Ginna Scale (6-20) 11 1st minute Oxygen Delivery Method Room Air Pulse Ox (%) 90 Pulse Rate (60-100 beats/min) 64 2nd minute Oxygen Delivery Method Room Air Pulse Ox (%) 90 Pulse Rate (60-100 beats/min) 66 3rd minute Oxygen Delivery Method Room Air Pulse Ox (%) 97 Pulse Rate (60-100 beats/min) 80 Number of Rests Taken 1 Reported Symptoms Increased Work of Breathing 4th minute Oxygen Delivery Method Room Air Pulse Ox (%) 91 Pulse Rate (60-100 beats/min) 83 Number of Rests Taken 1 Reported Symptoms Increased Work of Breathing 5th minute Oxygen Delivery Method Room Air Pulse Ox (%) 90 Pulse Rate (60-100 beats/min) 84 6th minute Oxygen Delivery Method Room Air Pulse Ox (%) 89 Pulse Rate (60-100 beats/min) 88 Post-test Oxygen Delivery Method Room Air Pulse Ox (%) 95 Pulse Rate (60-100 beats/min) 90 Dyspnea Ginna Scale (0-10) 3 Exertion Ginna Scale (6-20) 13 Full Laps Walked 10 Partial Lap, Number of Tiles Walked 0 Total Distance Walked (ft) 590 - Interpretation Interpretation: The patient was able to ambulate only 590 feet over the course of 6 minutes on room air with no assistive devices and 2 breaks secondary to dyspnea. The patie nt did have significant desaturation with a baseline of 98%, but desaturated as low as 89% with ambulation. These findings are consistent with a respiratory limitation exercise tolerance. - Recommendations Recommendations: No supplemental oxygen is indicated at this time. However, patient will need to be followed closely given level of desaturation.
== END ==
PROVIDERS: Family Provider Internal Medicine; PCP Internal Medicine; Referring Provider Nurse Practitioner Acute Care; Visit Provider Nurse Practitioner Acute Care
DX: R06.02 Shortness of breath (principal)
CPT/HCPCS: 94618

== ENCOUNTER → 2018-06-08 10:13 | Outpatient (CLI) | payer MEDICARE, OTHER, SELFPAY ==
--- NOTE | 2018-06-08 10:18 | RAD_ITS ---
STUDY: X-RAY - LUMBAR SPINE REASON FOR EXAM: Male, 82 years old. Back pain. TECHNIQUE: AP, lateral, extension lateral and cone-down lateral view(s) of the lumbar spine were obtained. COMPARISON: 09/21/2017 FINDINGS: Normal lumbar lordosis. There is somewhat restricted extension motion. There is no substantial scoliosis. There is no segmental malalignment. There is diffuse demineralization with multi-level endplate spondylosis. There is multi-level degenerative disc disease with moderate disc space narrowing of the lower thoracic and lumbosacral spine. T11 and T12 vertebral mild compression deformity. There is atherosclerotic calcification of the abdominal aorta without a demonstrated aneurysm. Total left hip arthroplasty. RAD/L/S Spine Min 4 Views IMPRESSION: Degenerative changes of the spine, as detailed above. Electronically Signed: Dunia Cooper MD at 10:45 EDT Tel , Service support ,
== END ==
PROVIDERS: Family Provider Internal Medicine; PCP Internal Medicine; Referring Provider Orthopaedic Surgery; Visit Provider Orthopaedic Surgery
DX: M54.5 Low back pain (principal)
CPT/HCPCS: 72110

== ENCOUNTER → 2018-06-24 08:45 | Outpatient (CLI) | payer MEDICARE, OTHER, SELFPAY ==
[2018-06-24 11:03] LABS: Anion Gap 11 (5-15); BUN 42 mg/dL (7-18); Calcium,Total 8.5 mg/dL (8.5-10.1); Chloride 96 mmol/L (98-107); Creatinine, Serum 3.22 mg/dL (0.70-1.30); EST Glomerular Filtration Rate 20 mL/min (>60); Est Glom Filt Rate - Afr Amer 24 mL/min (>60); Glucose 126 mg/dL (74-106); Potassium 4.3 mmol/L (3.5-5.1); Sodium Level 137 mmol/L (136-145)
== END ==
PROVIDERS: Family Provider Internal Medicine; PCP Internal Medicine; Referring Provider Internal Medicine Cardiovascular Disease; Visit Provider Internal Medicine Cardiovascular Disease
DX: I50.33 Acute on chronic diastolic (congestive) heart failure (principal)
CPT/HCPCS: 36415; 80048

== ENCOUNTER → 2018-07-05 07:30 | Outpatient (CLI) | payer MEDICARE, OTHER, SELFPAY ==
[2018-06-21 14:32] VITALS: BMI 33.7
[2018-07-05 09:08] LABS: Anion Gap 11 (5-15); BUN 38 mg/dL (7-18); BUN/Creat Ratio 14.1 RATIO (10-20); Calcium,Total 8.8 mg/dL (8.5-10.1); Chloride 99 mmol/L (98-107); Creatinine, Serum 2.69 mg/dL (0.70-1.30); EST Glomerular Filtration Rate 24 mL/min (>60); Est Glom Filt Rate - Afr Amer 29 mL/min (>60); Glucose 138 mg/dL (74-106); Potassium 4.1 mmol/L (3.5-5.1); Sodium Level 141 mmol/L (136-145)
== END ==
PROVIDERS: Family Provider Internal Medicine; PCP Internal Medicine; Referring Provider Internal Medicine Cardiovascular Disease; Visit Provider Internal Medicine Cardiovascular Disease
DX: I50.33 Acute on chronic diastolic (congestive) heart failure (principal)
CPT/HCPCS: 36415; 80048

== ENCOUNTER → 2018-07-19 07:50 | Outpatient (CLI) | payer MEDICARE, OTHER, SELFPAY ==
[2018-06-21 14:32] VITALS: BMI 33.7
--- NOTE | 2018-07-19 07:51 | CT_ITS ---
STUDY: CT CHEST WITHOUT CONTRAST REASON FOR EXAM: Male, 82 years old. Follow-up nodule, short of breath RADIATION DOSAGE (If Supplied By Facility): CTDIvol = ( 17.51 ) mGy, DLP = ( 530.97 ) mGycm TECHNIQUE: Transaxial imaging was performed without the administration of intravenous contrast material. Individualized dose optimization techniques were used for this CT. COMPARISON: Prior study of 05/04/2018 FINDINGS: There are emphysematous changes of the lungs predominantly involving the upper lobes. There has been interval resolution of a probable left upper lobe infiltrate noted on the previous study. There is a mosaic attenuation pattern of the lungs. There are coarse bronchopulmonary markings of the posterior left upper lobe and superior segment of the left lower lobe consistent with atelectasis and/or fibrosis, new in the interval. There is no evidence of discrete mass there are small bilateral pleural effusions, similar to the previous study. There is mild cardiomegaly. There is no pericardial effusion. Coronary arterial and valvular calcifications are present. There are scattered nonpathologically enlarged mediastinal nodes. Hilar areas are difficult to assess on this noncontrast study. There is no obvious hilar mass or adenopathy. There is mild dilatation of the main, left, and right pulmonary arteries. The main pulmonary artery measures up to 3.2 cm in diameter. There are calcified plaques of the thoracic aorta. There is aneurysmal dilatation of the distal arch and descending thoracic aorta measuring up to 3.7 cm in diameter. There is diffuse endplate spondylosis of the thoracic spine. There is a moderate amount of ascites. There is a 1.7 cm solid nodule of the anterior left hepatic lobe, stable in the interval. CT/Chest without Contrast IMPRESSION: 1. Emphysematous changes of the lungs predominantly involving the upper lobes. 2. There has been interval resolution of a probable left upper lobe infiltrate noted on the previous study. 3. There is a mosaic attenuation pattern of the lungs. 4. There are coarse bronchopulmonary markings of the posterior left upper lobe adjacent to the superior major fissure and superior segment of the left lower lobe, consistent with atelectasis and/or fibrosis. This is new in the interval. 5. There are small bilateral pleural effusions, similar to the previous study. 6. There is mild dilatation of the main, left, and right pulmonary arteries. The main pulmonary artery measures up to 3.2 cm in diameter. This may be associated with pulmonary hypertension. 7. 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 8. There is a moderate amount of ascites, representing a normal finding. 9. There is a solid 1.7 cm nodule of the anterior left hepatic lobe, stable in the interval. This may represent process such as hemangioma or metastatic lesion. Electronically Signed: Francisco Smith MD at 18:31 EST , Service support ,
--- OUTSIDE RECORDS SUMMARY | 2018-09-11 07:30 | XMS RPT_ITS ---
:1935 Author Organization [place] Support Name Relationship Address Phone BRIGITTE HEBER Unavailable [address] + [place] [address] R Unavailable Unavailable Unavailable HEBER BRIGGS Unavailable [address] + [place] [address] R Unavailable Unavailable Unavailable HEBER BRIGGS Unavailable [address] + [place] [address] R Unavailable Unavailable Unavailable HEBER BRIGGS Unavailable [address] + [place] [address] R Unavailable Unavailable Unavailable HEBER BRIGGS Unavailable [address] + [place] [address] R Unavailable Unavailable Unavailable HEBER BRIGGS Unavailable [address] + [place] [address] R Unavailable Unavailable Unavailable HEBER BRIGGS Unavailable [address] + [place] [address] R Unavailable Unavailable Unavailable HEBER BRIGGS Unavailable [address] + [place] [address] R Unavailable Unavailable Unavailable HEBER BRIGGS Unavailable [address] + [place] [address] R Unavailable Unavailable Unavailable HEBER BRIGGS Unavailable [address] + [place] [address] R Unavailable Unavailable Unavailable HEBER BRIGGS Unavailable [address] + [place] [address] R Unavailable Unavailable Unavailable HEBER BRIGGS Unavailable [address] + [place] [address] R Unavailable Unavailable Unavailable HEBER BRIGGS Unavailable [address] + [place] [address] R Unavailable Unavailable Unavailable BRIGITTE, HEBER Unavailable [address] + [place] [address] R Unavailable Unavailable Unavailable R Unavailable Unavailable Unavailable BRIGITTE, HEBER Unavailable [address] + [place] [address] R Unavailable Unavailable Unavailable BRIGITTE, HEBER Unavailable [address] + [place] [address] R Unavailable Unavailable Unavailable BRIGITTE, HEBER Unavailable [address] + [place] [address] R Unavailable Unavailable Unavailable BRIGITTE, HEBER Unavailable [address] + [place] [address] R Unavailable Unavailable Unavailable BRIGITTE, HEBER Unavailable [address] + [place] [address] R Unavailable Unavailable Unavailable BRIGITTE, HEBER Unavailable [address] + [place] [address] R Unavailable Unavailable Unavailable BRIGITTE HEBER Unavailable [address] + [place] [address] R Unavailable Unavailable Unavailable BRIGITTE, HEBER Unavailable [address] + [place] [address] R Unavailable Unavailable Unavailable BRIGITTE, HEBER Unavailable [address] + [place] [address] R Unavailable Unavailable Unavailable BRIGITTE, HEBER Unavailable [address] + [place] [address] R Unavailable Unavailable Unavailable BRIGITTE, HEBER Unavailable [address] + [place] [address] R Unavailable Unavailable Unavailable BRIGITTE, HEBER Unavailable [address] + [place] [address] R Unavailable Unavailable Unavailable BRIGITTE, HEBER Unavailable [address] + [place] [address] R Unavailable Unavailable Unavailable BRIGITTE, HEBER Unavailable [address] + [place] [address] R Unavailable Unavailable Unavailable BRIGITTE, HEBER Unavailable [address] + [place] [address] R Unavailable Unavailable Unavailable BRIGITTE, HEBER Unavailable [address] + [place] [address] R Unavailable Unavailable Unavailable BRIGITTE, HEBER Unavailable [address] + [place] [address] R Unavailable Unavailable Unavailable BRIGITTE, HEBER Unavailable [address] + [place] [address] R Unavailable Unavailable Unavailable BRIGITTE, HEBER Unavailable [address] + [place] [address] R Unavailable Unavailable Unavailable BRIGITTE, HEBER Unavailable [address] + [place] [address] R Unavailable Unavailable Unavailable BRIGITTE, HEBER Unavailable [address] + [place] [address] R Unavailable Unavailable Unavailable BRIGITTE, HEBER Unavailable [address] + [place] [address] R Unavailable Unavailable Unavailable BRIGITTE, HEBER Unavailable [address] + [place] [address] R Unavailable Unavailable Unavailable BRIGITTE, HEBER Unavailable [address] + [place] [address] R Unavailable Unavailable Unavailable BRIGITTE, HEBER Unavailable [address] + [place] [address] R Unavailable Unavailable Unavailable BRIGITTE, HEBER Unavailable [address] + [place] [address] R Unavailable Unavailable Unavailable BRIGITTE, HEBER Unavailable [address] + [place] [address] R Unavailable Unavailable Unavailable BRIGITTE, HEBER Unavailable [address] + [place] [address] R Unavailable Unavailable Unavailable BRIGITTE, HEBER Unavailable [address] + [place] [address] R Unavailable Unavailable Unavailable BRIGITTE, HEBER Unavailable [address] + [place] [address] R Unavailable Unavailable Unavailable BRIGITTE, HEBER Unavailable [address] + [place] [address] R Unavailable Unavailable Unavailable BRIGITTE, HEBER Unavailable [address] + [place] [address] R Unavailable Unavailable Unavailable BRIGITTE HEBER Unavailable [address] + [place] [address] R Unavailable Unavailable Unavailable BRIGITTE, HEBER Unavailable [address] + [place] [address] R Unavailable Unavailable Unavailable BRIGITTE HEBER Unavailable [address] + [place] [address] R Unavailable Unavailable Unavailable BRIGITTE HEBER Unavailable [address] + [place] [address] R Unavailable Unavailable Unavailable BRIGITTE, HEBER Unavailable [address] + [place] [address] R Unavailable Unavailable Unavailable BRIGITTE HEBER Unavailable [address] + [place] [address] R Unavailable Unavailable Unavailable BRIGITTE, HEBER Unavailable [address] + [place] [address] R Unavailable Unavailable Unavailable BRIGITTE HEBER Unavailable [address] + [place] [address] R Unavailable Unavailable Unavailable BRIGITTE, HEBER Unavailable [address] + [place] [address] R Unavailable Unavailable Unavailable BRIGITTE HEBER Unavailable [address] + [place] [address] R Unavailable Unavailable Unavailable BRIGITTE, HEBER Unavailable [address] + [place] [address] R Unavailable Unavailable Unavailable BRIGITTE HEBER Unavailable [address] + [place] [address] R Unavailable Unavailable Unavailable BRIGITTE, HEBER Unavailable [address] + [place] [address] R Unavailable Unavailable Unavailable BRIGITTE HEBER Unavailable [address] + [place] [address] R Unavailable Unavailable Unavailable BRIGITTE, HEBER Unavailable [address] + [place] [address] R Unavailable Unavailable Unavailable BRIGITTE HEBER Unavailable [address] + [place] [address] R Unavailable Unavailable Unavailable BRIGITTE HEBER Unavailable [address] + [place] [address] R Unavailable Unavailable Unavailable HEBER BRIGGS Unavailable [address] + [place] [address] R Unavailable Unavailable Unavailable HEBER BRIGGS Unavailable [address] + [place] [address] R Unavailable Unavailable Unavailable HEBER BRIGGS Unavailable . + [place] [address] R Unavailable Unavailable Unavailable HEBER BRIGGS Unavailable [address] + [place] [address] R Unavailable Unavailable Unavailable BRIGITTE HEBER Unavailable [address] + [place] [address] R Unavailable Unavailable Unavailable Care Team Providers Name Role Phone Marcelo Reynolds Attending Unavailable Oleghe, Efewongbe Referring Unavailable Marcelo Reynolds Attending Unavailable Marcelo Reynolds Referring Unavailable Oleghe, Efewongbe Primary Care Unavailable Marcelo Reynolds Attending Unavailable Marcelo Reynolds Referring Unavailable Oleghe, Efewongbe Primary Care Unavailable Marcelo Reynolds Consulting Unavailable Arturo Toro Attending Unavailable Marcelo Reynolds Referring Unavailable Oleghe, Efewongbe Primary Care Unavailable Marcelo Reynolds Consulting Unavailable Holden Chavarria Attending Unavailable Oleghe, Efewongbe Primary Care Unavailable Oleghe, Efewongbe Referring Unavailable Holden Chavarria Attending Unavailable Holden Chavarria Referring Unavailable Oleghe, Efewongbe Primary Care Unavailable Holden Chavarria Consulting Unavailable Jeffrey Zuñiga Attending Unavailable Oleghe, Efewongbe Primary Care Unavailable Jack Augustin [employer] Attending Unavailable Oleghe, Efewongbe Referring Unavailable Oleghe, Efewongbe Primary Care Unavailable Jack Augustin [employer] Attending Unavailable Jack Augustin [employer] Referring Unavailable Oleghe, Efewongbe Primary Care Unavailable Oleghe, Efewongbe Referring Unavailable Jack Augustin [employer] Attending Unavailable Oleghe, Efewongbe Primary Care Unavailable Marcelo Reynolds Attending Unavailable Oleghe, Efewongbe Referring Unavailable David Reich Attending Unavailable Oleghe, Efewongbe Referring Unavailable Oleghe, Efewongbe Primary Care Unavailable David Reich Attending Unavailable Oleghe, Efewongbe Primary Care Unavailable Yoandy Nguyen Attending Unavailable Oleghe, Efewongbe Referring Unavailable Oleghe, Efewongbe Primary Care Unavailable Yoandy Nguyen Attending Unavailable Oleghe, Efewongbe Referring Unavailable Oleghe, Efewongbe Primary Care Unavailable Jack Augustin [employer] Attending Unavailable Jack Augustin [employer] Referring Unavailable Oleghe, Efewongbe Primary Care Unavailable TALHA FORD Attending Unavailable Oleghe, Efewongbe Primary Care Unavailable TALHA FORD Referring Unavailable CurtisMonica Attending Unavailable Oleghe, Efewongbe Attending Unavailable Oleghe, Efewongbe Referring Unavailable Oleghe, Efewongbe Primary Care Unavailable Oleghe, Efewongbe Attending Unavailable Oleghe, Efewongbe Referring Unavailable Oleghe, Efewongbe Primary Care Unavailable Holden Chavarria Attending Unavailable Oleghe, Efewongbe Referring Unavailable Oleghe, Efewongbe Primary Care Unavailable Holden Chavarria Consulting Unavailable Marcelo Reynolds Attending Unavailable Oleghe, Efewongbe Referring Unavailable Marcelo Reynolds Attending Unavailable Marcelo Reynolds Referring Unavailable Oleghe, Efewongbe Primary Care Unavailable Oleghe, Efewongbe Attending Unavailable Oleghe, Efewongbe Referring Unavailable Oleghe, Efewongbe Primary Care Unavailable Oleghe, Efewongbe Attending Unavailable Oleghe, Efewongbe Referring Unavailable Oleghe, Efewongbe Primary Care Unavailable Oleghe, Efewongbe Attending Unavailable Oleghe, Efewongbe Referring Unavailable Oleghe, Efewongbe Primary Care Unavailable Marcelo Reynolds Attending Unavailable Jack Augustin [employer]-C Attending Unavailable Oleghe, Efewongbe Referring Unavailable Oleghe, Efewongbe Primary Care Unavailable Holden Chavarria Attending Unavailable Oleghe, Efewongbe Referring Unavailable Oleghe, Efewongbe Primary Care Unavailable Holden Chavarria Consulting Unavailable Jack Augustin [employer] Attending Unavailable Jack Augustin [employer] Referring Unavailable Oleghe, Efewongbe Primary Care Unavailable Jack Aguustin [employer] Attending Unavailable Oleghe, Efewongbe Referring Unavailable Oleghe, Efewongbe Primary Care Unavailable Jack Augustin [employer] Attending Unavailable Augustin, Jack [employer] Referring Unavailable Oleghe, Efewongbe Primary Care Unavailable Augustin, Jack [employer] Attending Unavailable Augustin, Jack [employer] Referring Unavailable Oleghe, Efewongbe Primary Care Unavailable Augustin, Jack [employer] Attending Unavailable Oleghe, Efewongbe Primary Care Unavailable Augustin, Jack [employer] Referring Unavailable Augustin, Jack [employer]C Attending Unavailable Oleghe, Efewongbe Primary Care Unavailable Augustin, Jack [employer]TE[employer]C Attending Unavailable Oleghe, Efewongbe Referring Unavailable Oleghe, Efewongbe Primary Care Unavailable Oleghe, Efewongbe Attending Unavailable Oleghe, Efewongbe Referring Unavailable Oleghe, Efewongbe Attending Unavailable Oleghe, Efewongbe Referring Unavailable Oleghe, Efewongbe Primary Care Unavailable Oleghe, Efewongbe Primary Care Unavailable Mic Khan Admitting Unavailable Mic Khan Attending Unavailable Mic Khan Referring Unavailable Shawn Dickson Consulting Unavailable Yonny Woody Consulting Unavailable Jasmeet Connolly D.O. Consulting Unavailable Mic Khan Admitting Unavailable Mic Khan Referring Unavailable Oleghe, Efewongbe Primary Care Unavailable Shawn Dickson Consulting Unavailable Saba Ng Attending Unavailable Mic Khan Consulting Unavailable Mic Khan Admitting Unavailable Shawn Dickson Attending Unavailable Mic Khan Referring Unavailable Oleghe, Efewongbe Primary Care Unavailable Shawn Dickson Consulting Unavailable Mic Khan Consulting Unavailable Mic Khan Admitting Unavailable Yonny Woody Attending Unavailable Mic Khan Referring Unavailable Oleghe, Efewongbe Primary Care Unavailable Shawn Dickson Consulting Unavailable Yonny Woody Consulting Unavailable Mic Khan Consulting Unavailable Mic Khan Admitting Unavailable Mic Khan Referring Unavailable Oleghe, Efewongbe Primary Care Unavailable Shawn Dickson Consulting Unavailable Mic Khan Attending Unavailable Yonny Woody Consulting Unavailable Mic Khan Consulting Unavailable Mic Khan Admitting Unavailable Marcelo Reynolds Attending Unavailable Mic Khan Referring Unavailable Oleghe, Efewongbe Primary Care Unavailable Shawn Dickson Consulting Unavailable Yonny Woody Consulting Unavailable Mic Khan Consulting Unavailable Mic Khan Admitting Unavailable Marcelo Reynolds Attending Unavailable Mic Khan Referring Unavailable Oleghe, Efewongbe Primary Care Unavailable Shawn Dickson Consulting Unavailable Yonny Woody Consulting Unavailable Jasmeet Connolly D.O. Consulting Unavailable Mic Khan Consulting Unavailable Mic Khan Attending Unavailable Mic Khan Admitting Unavailable KitMic harris Referring Unavailable Oleghe, Efewongbe Primary Care Unavailable Shawn Dickson Consulting Unavailable Yonny Woody Consulting Unavailable Jasmeet Connolly D.O. Consulting Unavailable Mic Khan Consulting Unavailable Mic Khan Admitting Unavailable Jasmeet Connolly D.O. Attending Unavailable Mic Khan Referring Unavailable Oleghe, Efewongbe Primary Care Unavailable Shawn Dickson Consulting Unavailable Yonny Wodoy Consulting Unavailable Jasmeet Connolly D.O. Consulting Unavailable Mic Khan Consulting Unavailable Mic Khan Attending Unavailable Mic Khan Admitting Unavailable KitMic harris Referring Unavailable Oleghe, Efewongbe Primary Care Unavailable Shawn Dickson Consulting Unavailable Yonny Woody Consulting Unavailable Jasmeet Connolly D.O. Consulting Unavailable Mic Khan Consulting Unavailable Oleghe, Efewongbe Attending Unavailable Oleghe, Efewongbe Referring Unavailable Jenna Gerber Attending Unavailable Oleghe, Efewongbe Referring Unavailable Jenna Gerber Attending Unavailable Jenna Gerber Referring Unavailable Oleghe, Efewongbe Primary Care Unavailable Jenna Gerber Attending Unavailable Jenna Gerber Referring Unavailable Oleghe, Efewongbe Primary Care Unavailable Oleghe, Efewongbe Attending Unavailable Oleghe, Efewongbe Referring Unavailable Duff, Ursula Attending Unavailable Oleghe, Efewongbe Referring Unavailable Duff, Ursula Attending Unavailable Duff, Ursula Referring Unavailable Oleghe, Efewongbe Primary Care Unavailable Arturo Toro Attending Unavailable Jenna Gerber Referring Unavailable Arturo Toro Attending Unavailable Jenna Gerber Referring Unavailable Oleghe, Efewongbe Attending Unavailable Oleghe, Efewongbe Referring Unavailable Jasmeet Connolly D.O. Attending Unavailable Oleghe, Efewongbe Referring Unavailable William Moser Attending Unavailable Franklyn Liu Referring Unavailable Oleghe, Efewongbe Attending Unavailable Oleghe, Efewongbe Referring Unavailable Marcelo Reynolds Attending Unavailable Holden Chavarria Attending Unavailable Oleghe, Efewongbe Referring Unavailable Oleghe, Efewongbe Primary Care Unavailable Holden Chavarria Consulting Unavailable Gail, Marcelo Attending Unavailable Moodispaw, Marcelo Referring Unavailable Oleghe, Efewongbe Primary Care Unavailable Gail, Marcelo Attending Unavailable Moodispaw, Marcelo Referring Unavailable Oleghe, Efewongbe Primary Care Unavailable Jasmeet Connolly D.O. Attending Unavailable Jasmeet Connolly D.O. Referring Unavailable Oleghe, Efewongbe Primary Care Unavailable Jenna Gerber Attending Unavailable Oleghe, Efewongbe Referring Unavailable Jack Augustin [employer]TE[employer] Attending Unavailable Oleghe, Efewongbe Referring Unavailable RAPAKA, SARAHY Attending Unavailable RAPAKA, SARAHY Referring Unavailable RAPAKA, SARAHY Referring Unavailable RAPAKA, SARAHY Referring Unavailable [facility] Primary Care Unavailable PROBLEMS PROBLEMS DATE TYPE CONDITION / CODE ATTENDING STATUS SOURCE 07/31/2018 Unknown I50.33 - Acute on Arturo Toro Active [facility] chronic diastolic [facility] (congestive) heart Hospital failure / Repository I50.33(ICD-10) 07/31/2018 Unknown R06.02 - Shortness of Arturo Toro Active [facility] breath / Community R06.02(ICD-10) Hospital Repository 07/29/2018 Unknown I48.91 - Unspecified Moodisp[place], Active [facility] atrial fibrillation / [facility] I48.91(ICD-10) Hospital Repository 07/20/2018 Unknown G47.33 - Obstructive Gerber, Active [facility] sleep apnea (adult) [facility] (pediatric) / Hospital G47.33(ICD-10) Repository 06/18/2018 Unknown G47.10 - Hypersomnia, Jasmeet Mohsen Active [facility] unspecified / [facility] G47.10(ICD-10) Hospital Repository 06/18/2018 Unknown R93.89 - Abnormal Jameson Herrera [facility] findings on 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, unspecified / Hospital D46.20(ICD-10) Repository 06/22/2018 Unknown D69.6 - Holden Chavarria Active [facility] Thrombocytopenia, Community unspecified / Hospital D69.6(ICD-10) Repository 06/09/2018 Admitting Unknown / NA Active [facility](Unknown[facility] Repository 06/09/2018 Active Chronic obstructive SARAHY TOUSSAINT Active [place] pulmonary disease, Clinic Main unspecified / [place] J44.9(ICD-10) Repository 06/09/2018 Active Other nonspecific RAPASARAHY RICHTER Active [facility] abnormal finding of Clinic Main lung field / [place] R91.8(ICD-10) Repository 06/09/2018 Active Personal history of SARAHY TOUSSAINT Active [place] nicotine dependence / Clinic Main Z87.891(ICD-10) [place] Repository 06/09/2018 Active Chronic diastolic SARAHY TOUSSAINT Active [place] (congestive) heart Clinic Main failure / [place] I50.32(ICD-10) Repository 06/09/2018 Active Thrombocytopenia, SARAHY TOUSSAINT Active [facility] unspecified / Clinic Main D69.6(ICD-10) [place] Repository 06/08/2018 Unknown M54.5 - Low back pain Ursula Duff Active [facility] / M54.5(ICD-10) [facility] Hospital Repository 05/17/2018 Unknown E11.9 - Type 2 Oleghe, Active [facility] diabetes mellitus [facility] without complications Hospital / E11.9(ICD-10) Repository 04/28/2018 Unknown R04.2 - Hemoptysis / Augustin, Jack Active [facility] R04.2(ICD-10) [employer] [facility] Hospital Repository 04/28/2018 Unknown R05 - Cough / Augustin, Jack Active [facility] R05(ICD-10) [employer] [facility] Hospital Repository 03/17/2018 Unknown 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, Jack Active [facility] intervertebral disc [employer] [facility] degeneration, lumbar Hospital region / Repository M51.36(ICD-10) 03/17/2018 Unknown R93.7 - Abnormal Augustin, Jack Active [facility] findings on [employer] [facility] diagnostic imaging of Hospital other parts of Repository musculoskeletal system / R93.7(ICD-10) 03/17/2018 Unknown M54.16 - Augustin, Jack Active [facility] Radiculopathy, lumbar [employer] [facility] region / Hospital M54.16(ICD-10) Repository 02/03/2018 Unknown M54.42 - Lumbago with Jack Augustin Active [facility] sciatica, left side / [employer] [facility] M54.42(ICD-10) Hospital Repository 01/07/2018 Unknown I10 - Essential [place], Active [facility] (primary) [facility] hypertension / Hospital I10(ICD-10) Repository 01/07/2018 Unknown E78.5 - [place], Active [facility] Hyperlipidemia, [facility] unspecified / Hospital E78.5(ICD-10) Repository 01/07/2018 Unknown I49.3 - Ventricular [place], Active [facility] premature [facility] depolarization / Hospital I49.3(ICD-10) Repository 01/07/2018 Unknown I49.1 - Atrial [place], Active [facility] premature [facility] depolarization / Hospital I49.1(ICD-10) Repository 12/25/2017 Unknown I47.2 - Ventricular [place], Active [facility] tachycardia / [facility] I47.2(ICD-10) Hospital Repository 12/25/2017 Unknown I47.1 - [place], Active [facility] Supraventricular [facility] tachycardia / Hospital I47.1(ICD-10) Repository 12/25/2017 Unknown R00.2 - Palpitations [place], Active [facility] / R00.2(ICD-10) [facility] Hospital Repository 12/01/2017 Unknown N18.3 - Chronic PraHolden barron Active [facility] kidney disease, stage Community 3 (moderate) / Hospital N18.3(ICD-10) Repository 11/13/2017 Unknown N40.1 - Benign TALHA FORD Active [facility] prostatic hyperplasia [facility] with lower urinary Hospital tract symptoms / Repository N40.1(ICD-10) 09/21/2017 Unknown M25.551 - Pain in David Reich Active [facility] right hip / Community M25.551(ICD-10) Hospital Repository 09/21/2017 Unknown M25.552 - Pain in David Reich Active [facility] left hip / [facility] M25.552(ICD-10) Hospital Repository 09/21/2017 Unknown S80.01XA - Contusion David Reich Active [facility] of right knee, Community initial encounter / Hospital S80.01XA(ICD-10) Repository 09/21/2017 Unknown M70.41 - Prepatellar David Reich Active [facility] bursitis, right knee Community / M70.41(ICD-10) Hospital Repository 09/16/2017 Unknown M25.461 - Effusion, Zuñiga, Jeffrey Active [facility] right knee / Community M25.461(ICD-10) Hospital Repository 09/01/2017 Unknown D46.9 - Holden Chavarria Active [facility] Myelodysplastic Community syndrome, unspecified Hospital / D46.9(ICD-10) Repository PROCEDURES PROCEDURES No Procedure Records FoundRESULTS RESULTS OPERATIVE REPORT Observed: 07/31/2018 Status: F Source: MOBILE 5:48 AM [facility] REPOSITORY [facility] Medical Records Department [address] [place] [address] Operative Report 07/30/18 1501 MR#: [id number] Acct: [id number] Name: ANGEL BRIGGS Rep #: [id number] : 1935 82 From: Arturo Toro MD PCP: Roc Martinez MD Status: DEP [facility] [place] Location: [facility] Problem List (1) Acute on chronic diastolic CHF (congestive heart failure) Status: Acute (2) Atrial fibrillation Status: Acute Qualifiers: (3) Pulmonary hypertension Status: Acute (4) Anemia Status: Chronic (5) COPD (chronic obstructive pulmonary disease) Status: Chronic Qualifiers: COPD type: unspecified COPD Qualified Code(s): J44.9 - Chronic obstructive pulmonary disease, unspecified (6) Essential hypertension Status: Chronic (7) Hyperlipemia Status: Chronic Qualifiers: Hyperlipidemia type: unspecified Qualified Code(s): E78.5 - Hyperlipidemia, unspecified (8) Hyperlipidemia Status: Chronic (9) MDS (myelodysplastic syndrome), low grade Status: Chronic (10) Respiratory failure Status: Chronic Qualifiers: Chronicity: acute on chronic Respiratory failure complication: hypoxia Qualified Code(s): J96.21 - Acute and chronic respiratory failure with hypoxia (11) Type 2 diabetes mellitus Status: Chronic (12) DEAN (obstructive sleep apnea) Status: Suspected Operative Report Date of Procedure: 07/30/18 - Conscious sedation CONSCIOUS SEDATION REPORT BRIEF HISTORY OF PRESENT ILLNESS: The patient is an 82-year-old male who presented to [facility] for an elective outpatient cardioversion due to underlying atrial fibrillation. The patient reports no PO intake since midnight. The patient does have a history of obstructive sleep apnea, but is noncompliant with therapy. The patient reports a history of previous smoking and current COPD. The patient denies any recent constitutional symptoms such as fevers, chills, nausea or vomiting. The patient denies previous anesthetic complications. Patient's last known ejection fraction was 60%. Patient is on 2 L nasal cannula at baseline and is followed by Dr. Connolly. PHYSICAL EXAMINATION: VITAL SIGNS: Reviewed and were acceptable. GENERAL: The patient is a male, in no apparent distress, speaking in full sentences. HEENT: Normocephalic, atraumatic. Mucous membranes are moist and pink. Good mouth opening noted. Trachea is midline. Good neck mobility. MP IV CHEST: S1, S2 irregularly irregular. No murmurs, rubs or gallops were noted. LUNGS: Clear to auscultation bilaterally without appreciable wheezes, rales or rhonchi. ABDOMEN: Soft, nontender, nondistended. Positive bowel sounds. EXTREMITIES: There is no clubbing, cyanosis or edema. ASA Class: III DESCRIPTION OF PROCEDURE: After confirmation of informed consent, the patient's anesthesia plan was reviewed in detail. Propofol was chosen. Risks and benefits were reviewed and the patient agreed to proceed. At 1:21 PM, the patient was given 40 mg of propofol. The patient achieved an appropriate level of sedation and received 1 attempt s synchronized cardioversion, at [address] Reynolds at the bedside. This was successful in achieving normal sinus rhythm. The patient did have some desaturation following sedation requiring a jaw thrust. No bradycardia was noted. Patient recovered without complication. The patient was monitored until 1:28 PM, at which time the patient reached their baseline mental status and function. The patient tolerated the procedure well. COMPLICATIONS: None ESTIMATED BLOOD LOSS: None RECOMMENDATIONS: Okay to recover in usual fashion. Code Visit 9xxxx: Other Procedure See Report - [id number] 07/31/18 0548 <Electronically signed by Arturo Toro MD> Date Arturo Toro MD CC: Arturo Toro MD; Roc Martinez MD; Marcelo Reynolds MD Signed OPERATIVE REPORT Observed: 07/30/2018 Status: F Source: [place] 1:46 PM [facility] REPOSITORY [facility] Medical Records Department [address] [place] [address] Operative Report 07/30/18 1342 MR#: [id number] Acct: [id number] Name: ANGEL BRIGGS Rep #: [id number] : 1935 82 From: Marcelo Reynolds MD PCP: Roc Martinez MD Status: REG SDC Y Location: [facility] Problem List (1) Atrial fibrillation Status: Acute Qualifiers: Operative Report Date of Procedure: 07/30/18 Date: 07/30/2018 Procedure: Synchronized biphasic DC cardioversion Indications: Atrial fibrillation Consent: Per the patient Premedications: Per Dr. Arturo Toro pulmonology/critical care medicine with propofol 40 mg IV push x1 Procedure: Synchronized biphasic DC cardioversion:200 joules x1: Result: Sinus rhythm Complications: No apparent complications This note was generated using a voice recognition system and there may be incorrect words, spelling or punctuation that were not noted when reviewing the office note prior to saving. 07/30/18 1346 <Electronically signed by Marcelo Reynolds MD> Date Marcelo Reynolds MD CC: Jasmeet Connolly D.O.; Roc Martinez MD; Marcelo Reynolds MD Signed BASIC METABOLIC Collected: 07/30/2018 Status: F Source: [place] PROFILE (BMP) 1:00 PM [facility] REPOSITORY TYPE CODE TESTS RESULT OUT OF RANGE REFERENCE UNITS LAB L501.0100 74-106 mg/dL Normal GLU 91 Result Comment: Please note revised GLUCOSE reference range effective 2017. LAB L501.1000 7-18 mg/dL High BUN 57 LAB L501.1100 0.70-1.30 mg/dL High CREAT,SERUM 2.92 Result Comment: The validity of the calculated GFR AND GFRAA in patients over 70 years has not been determined. Clinical correlation is essential. LAB L501.1110 >60 mL/min Low EST GFR 22 Result Comment: Non- GFR Calc LAB L501.1115 >60 mL/min Low EST GFR - AA 27 Result Comment: GFR Calc LAB L501.1255 ml/min Normal Estimated CRCL 20.49 LAB L501.1300 10-20 RATIO Normal BUN/CRE 19.5 LAB L501.2200 8.5-10 mg/dL Normal .1 CA 8.6 LAB L501.5300 136-14 mmol/L Normal 5 NA 141 LAB L501.5600 3.5-5. mmol/L High 1 K 5.4 LAB L501.5900 98-107 mmol/L Normal CL 105 LAB L501.6100 21.0-3 mmol/L Normal 2.0 CO2 30.0 LAB L501.6200 5-15 Normal GAP 6 Performed By: #### L500.2500 #### [facility] [address] [place], [address] CARDIOLOGY VISIT Observed: 07/29/2018 Status: F Source: MOBILE REPORT 2:28 PM [facility] REPOSITORY [facility] [address] [place] [address] OFFICE VISIT Date of Service: 07/29/18 MR#: [id number] Acct: [id number] Name: ANGEL BRIGGS Rep #: [id number] : 1935 Provider: Marcelo Reynolds MD Age/Sex: 82/M [place] [facility] [place]: Signed HPI HPI Details: ANGEL BRIGGS, is a 82 M who presents to the office today for Outpatient cardiovascular follow up. He denies any ongoing chest discomfort. He continues with shortness of breath/dyspnea. This has progressively gotten worse with activity. He has also had continued lower extremity peripheral pitting edema. This did improve with higher dose diuretic therapy, however, his creatinine became markedly elevated. His diuretics were decreased. His edema has started to return. He has had orthostatic changes leading to near syncope and near syncope-getting up abruptly and walking before allowing himself to equilibrate. He has had no other clearcut unexplained near syncopal or syncopal events. He did have an ECG in the office today. He remains in atrial fibrillation. His ventricular response is controlled. He has low voltage QRS in the limb leads. He has poor R-wave progression with an anteroseptal MD pattern of indeterminate age as well as potentially an inferior MD pattern of indeterminate age. He states he has scheduled for an upcoming obstructive sleep apnea study. He has a followup pulmonology appointment at the beginning of September 2018. Intake Vital Signs07/29/18 Body Mass Index (BMI) 33.7 07/29/18 Height 5 ft 10 in 07/29/18 Weight: 223 lb 07/29/18 Body Mass Index (BMI) 32.0 07/29/18 Blood Pressure 100/48 L Intake Visit Reasons: 6 wk fu Allergies codeine Adverse Reaction (Severe, Verified 07/29/18 13:00) Unknown Medications Metformin HCl [Glucophage] 1,000 mg PO DAILY 05/26/18 [History Confirmed 07/29/18] Tamsulosin HCl [Flomax] 0.4 mg PO DAILY 05/26/18 [History Confirmed 07/29/18] simvastatin 20 mg tablet 20 mg PO QHS #90 tab 05/31/18 [Rx Confirmed 07/29/18] albuterol sulfate HFA 90 mcg/actuation aerosol inhaler 1 puff INHALATION Q6H PRN #8.5 g 06/07/18 [Rx Confirmed 07/29/18] guaifenesin ER 1,200 mg tablet, extended release 12 hr 1,200 mg PO Q12H #90 tab 06/14/18 [Rx Confirmed 07/29/18] amiodarone 200 mg tablet 200 mg PO DAILY #30 tab 06/21/18 [Rx Confirmed 07/29/18] apixaban 2.5 mg tablet 2.5 mg PO BID #60 tab 06/21/18 [Rx Confirmed 07/29/18] metoprolol succinate ER 25 mg tablet,extended release 24 hr 25 mg PO BID #60 tab 06/21/18 [Rx Confirmed 07/29/18] Incentive Spirometer #1 ea 07/20/18 [Rx Confirmed 07/20/18] apple cider vinegar 500 mg tablet mg PO tab 07/20/18 [History Confirmed 07/29/18] multivitamin with iron-mineral tablet 1 tab PO DAILY 07/20/18 [History Confirmed 07/29/18] tiotropium bromide 2.5 mcg/actuation mist for inhalation 2 puff INHALATION QDAY #1 ea 07/20/18 [Rx Confirmed 07/29/18] compression stocking,knee high,regular,large circumfer. See Dose Instructions .ROUTE .MEDSUPPLY #2 ea 07/21/18 [Rx Confirmed 07/21/18] furosemide 40 mg tablet 40 mg PO .COMPLEX tab 07/21/18 [History Confirmed 07/29/18] mecobalamin (vitamin B12) 1,000 mcg disintegrating tablet,sublingual 1,000 mcg SUBLINGUAL DAILY 07/29/18 [History Confirmed 07/29/18] [facility] Medical History Essential hypertension (Chronic) Atrial fibrillation (Acute) Shortness of breath (Chronic) Acute on chronic diastolic CHF (congestive heart failure) (Acute) Anemia (Chronic) Thrombocytopenia (Chronic) Pain on swallowing (Acute) Premature atrial contractions (Acute) MDS (myelodysplastic syndrome), low grade (Chronic) Hypotension (Acute) Paroxysmal atrial tachycardia (Acute) Paroxysmal ventricular tachycardia (Acute) Premature ventricular contraction (Acute) Palpitations (Acute) Hyperlipidemia (Chronic) Hyperlipemia (Chronic) Type 2 diabetes mellitus (Chronic) COPD (chronic obstructive pulmonary disease) (Chronic) Bilateral hip pain (Acute) Contusion of right knee (Acute) Inguinal hernia (Acute) Low back pain (Acute) Prepatellar bursitis, right knee (Acute) Thrombocytopenia (Acute) heart catheterization (Acute) Arthritis (Chronic) BPH (benign prostatic hyperplasia) (Chronic) BPH (benign prostatic hyperplasia) (Chronic) MDS (myelodysplastic syndrome), low grade (Chronic) HTN (hypertension) (Inactive) Hypertension (Inactive) Surgical History H/O hernia repair (Chronic) 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) History of hand surgery (Resolved) Family History Mother Cancer, Onset Age: 59 Pancreatic Father Cancer, Onset Age: 44 Intestinal Brother Cancer, Onset Age: 78 Son CVA (cerebral vascular accident) Diabetes Mother Cancer Social History household members: none housing: house current occupational status: retired pets and animals: No Smoking Status: Former smoker quit date: 08/17/80 pack-years: 26 how long ago did patient quit smokin second hand exposure: No alcohol intake: never substance use type: does not use what type of physical activity do you participate in: none ROS Const Const: Positive for fatigue (increased) and weakness (bilat LE); negative for weight gain, weight loss, frequent falls or excessive sweating Eyes Eyes: Negative for change in vision, blurry vision or transient loss of vision ENT ENT: Positive for dizziness (continues with postion change sitting to standing); negative for balance problems Cardio Chest Pain: No Palpitations: No Edema: Right (+3), Left (+4) Muscle aches with walking: Bilateral (LE) Resp Respiratory: Positive for SOB with activity (increased) and other (Phlegm production clear); negative for SOB at rest Additional Details: PAtient is on continuous oxygen @ 2L NC GI GI: Negative vomiting or vomiting blood/hematemesis : Negative for hematuria Musc Musc: Positive for muscle weakness (Bilat LE); negative for balance problems, muscle aches/ myalgia or joint pain Skin Skin: Negative non-healing lesions or rash Neuro Neuro: Positive for weakness (bilat LE), dizziness (continues with postion change sitting to standing), lightheadedness (continues with position change; sitting to standing) and other (reports muscle spasms when laying down; head and bilat UE); negative for blurry vision, frequent falls or orthostatic symptoms Blade Hematologic/Lymphatic: Negative for easy bleeding Endo Endo: Positive for fatigue (increased); negative for excessive sweating Psych Psych: Negative for anxiety or depression Allergy Allergy/Immunology: Negative for hives, Negative for rash Cardiology Exam Const Appearance: cooperative, healthy appearing, comfortable, no acute distress, well developed, well groomed and other (examined in the wheelchair) Nutritional Appearance: overweight Orientation: alert and awake Head Head: normal to inspection, normocephalic and atraumatic Ears: hearing grossly normal bilaterally Nose: external nose normal Face and Sinus: face symmetric Mouth: oral mucosae normal Eyes Eyelids: eyelids normal Conjunctivae: conjunctivae normal Pupils: PERRL EOM: EOM intact bilaterally Neck Neck: normal visual inspection and full ROM Carotids: normal carotid upstroke Chest Chest inspection: normal inspection of the chest and symmetric chest movement Auscultation: Bilateral: Diminished Base Cardio Palpation: normal PMI Rhythm: irregular rhythm Heart sounds: S1 normal and S2 normal GI GI: normal to inspection, soft and bowel sounds present Neuro General: alert, awake, oriented x3, gait normal, moves all extremities, no focal sensory deficit and no focal motor deficits Skin Skin: no rashes or lesions noted Extremities Pulses: Normal: Right Radial Pulse, Left Radial Pulse Lower Extremity Edema: +2: Bilateral Musculoskel Musculoskeletal: joint tenderness right knee Psych Psychological: normal affect Assessment AND Plan 1. Persistent atrial fibrillation I48.1 Plan He remains in atrial fibrillation. He remains on rate control therapy/antiarrhythmic therapy and anticoagulation therapy. He will be scheduled for an upcoming synchronized biphasic DC cardioversion attempt to regain sinus rhythm. Hopefully this will help with his symptoms and other objective findings. 2. Premature ventricular beat I49.3 Plan He does have a history of PVCs. He will continue his current medical therapy. 3. Coronary artery disease involving [place] coronary artery of [place] heart without angina pectoris I25.10 Plan He does have a history of underlying CAD. He has undergone noninvasive and invasive evaluation as noted above. He did not require revascularization therapy. He is continuing medical management. 4. Acute on chronic diastolic CHF (congestive heart failure) I50.33 Plan There are concerns of [id number] diastolic mediated CHF. His previous hemodynamic findings are as noted above. At the present time he does need to continue medical management to assist with blood pressure control and volume control. He will also have an attempt to regaining sinus rhythm to see if that does benefit any concerns of diastolic mediated CHF. Orders Orders: 5. Pulmonary HTN I27.20 Plan He does have a history of underlying pulmonary hypertension. There are concerns that this may be a secondary pulmonary hypertension to an underlying pulmonary disease process such as obstructive sleep apnea or an alternative pulmonary disease process. This may lead to cor pulmonale and right heart failure. At the present time he does need to continue with medical management and O2 support. He will continue as cardiovascular evaluation and care as noted above to see if regaining sinus rhythm makes a difference in his clinical status and objective findings. He does need to continue to follow with pulmonology for further evaluation and care as well. 6. Cor pulmonale I27.81 Plan Again there are concerns of underlying cor pulmonale. This may be secondary to an underlying pulmonary disease process with elevated pulmonary pressures. It mainly right heart failure. This can contribute to his symptoms and objective findings. He will continue medical evaluation and support. 7. Hyperlipidemia, unspecified hyperlipidemia type E78.5 Plan He will continue evaluation care is deemed appropriate. 8. Essential hypertension I10 Plan His blood pressure appears to be reasonably well controlled at this time. He will continue medical therapy and adjustment. 9. Chronic obstructive pulmonary disease, unspecified COPD type J44.9 10. Renal insufficiency N28.9 Plan He does have underlying renal insufficiency. His creatinine levels markedly elevated with increased diuretic therapy. His diuretics were readjusted. His creatinine levels have improved somewhat. Depending upon his clinical course he may need to be further evaluated by nephrology as well to assist with his renal evaluation and care. Plan Detail Other Orders Orders: Other Medications Discontinued: Additional Comments The above was discussed with the patient and his son. They are agreeable to this approach. Thank you for allowing me to participate in the care of your patient. Please don't hesitate to call if any issues arise. This note was generated using a voice recognition system and there may be incorrect words, spelling or punctuation that were not noted when reviewing the office note prior to saving. Follow Up 6 Weeks (PFM) Coding Level of Care Code Off vis,est,level 4 Diagnoses Persistent atrial fibrillation I48.1 Atrial fibrillation type: persistent Premature ventricular beat I49.3 Coronary artery disease involving c[place] coronary artery of [place] heart without angina pectoris I25.10 Associated angina: without angina Coronary Disease-Associated Artery/Lesion type: c[place] artery [place] vs. transplanted heart: catawba heart Acute on chronic diastolic CHF (congestive heart failure) I50.33 Pulmonary HTN I27.20 Cor pulmonale I27.81 Hyperlipidemia, unspecified hyperlipidemia type E78.5 Hyperlipidemia type: unspecified Essential hypertension I10 Chronic obstructive pulmonary disease, unspecified COPD type J44.9 COPD type: unspecified COPD Renal insufficiency N28.9 Coding Level of Care Code Off vis,est,level 4 Diagnoses Persistent atrial fibrillation I48.1 Atrial fibrillation type: persistent Premature ventricular beat I49.3 Coronary artery disease involving [place] coronary artery of [place] heart without angina pectoris I25.10 Associated angina: without angina Coronary Disease-Associated Artery/Lesion type: [place] artery [place] vs. transplanted heart: catawba heart Acute on chronic diastolic CHF (congestive heart failure) I50.33 Pulmonary HTN I27.20 Cor pulmonale I27.81 Hyperlipidemia, unspecified hyperlipidemia type E78.5 Hyperlipidemia type: unspecified Essential hypertension I10 Chronic obstructive pulmonary disease, unspecified COPD type J44.9 COPD type: unspecified COPD Renal insufficiency N28.9 07/29/18 1428 <Electronically signed by Marcelo Reynolds MD> Date Marcelo Reynolds MD Cosigner Signature: Date (if applicable) CC: Roc Martinez MD 12 LEAD EKG PERFORMED Observed: 07/29/2018 Status: F Source: MOBILE BY [facility] 1:18 PM [facility] REPOSITORY [address] [address] 12 Lead EKG performed by [facility] 07/29/18 1318 MR#: [id number] Acct: [id number] Name: BRIGITTERENEAANGEL G Rep #: [id number] : 1935 82 From: Marcelo Reynolds MD Attending Dr: Marcelo Reynolds MD Status: DEP [facility] Ordering Dr: Marcelo Reynolds MD Date: 07/29/18 [place] [facility] [place]: M C Admitted: [facility]/12 Lead EKG performed by [facility] ECG Report Interpretation Atrial fibrillation Left axis deviationLow voltage QRS (limb leads)Poor R wave progressionAnteroseptal MD, age undetermined, cannot be excludedInferior MD, age undetermined, cannot be excluded ABNORMAL Electronically signed on 07/29/2018 at 17:57 by Marcelo Reynolds Software Version [id number] 07/29/18 1800 Date Marcelo Reynolds MD CC: Roc Martinez MD Date Dictated: 07/29/181317 Date Transcribed: 07/29/181317 Medical Physics Teacher: GEOVANNI Signed INTERNAL MEDICINE Observed: 07/22/2018 Status: F Source: [place] OFFICE VISIT 10:37 AM [facility] [address] [place] [address] [place] [address] OFFICE VISIT Date of Service: 07/21/18 MR#: [id number] Acct: [id number] Name: ANGEL BRIGGS Rep #: [id number] : 1935 Provider: Jack Augustin NP Age/Sex: 82/M Location: [facility] Status: Signed Intake Vital Signs07/21/18 Body Mass Index (BMI) 33.7 07/21/18 Height 5 ft 10 in Intake Visit Reasons: 1 MO FU Chief Complaint: follow-up visit Is patient in pain?: No Allergies codeine Adverse Reaction (Severe, Verified 07/20/18 08:29) Unknown Medications Metformin HCl [Glucophage] 1,000 mg PO DAILY 05/26/18 [History Confirmed 07/20/18] Tamsulosin HCl [Flomax] 0.4 mg PO DAILY 05/26/18 [History Confirmed 07/20/18] simvastatin 20 mg tablet 20 mg PO QHS #90 tab 05/31/18 [Rx Confirmed 07/20/18] albuterol sulfate HFA 90 mcg/actuation aerosol inhaler 1 puff INHALATION Q6H PRN #8.5 g 06/07/18 [Rx Confirmed 07/20/18] guaifenesin ER 1,200 mg tablet, extended release 12 hr 1,200 mg PO Q12H #90 tab 06/14/18 [Rx Confirmed 07/20/18] amiodarone 200 mg tablet 200 mg PO DAILY #30 tab 06/21/18 [Rx Confirmed 07/20/18] apixaban 2.5 mg tablet 2.5 mg PO BID #60 tab 06/21/18 [Rx Confirmed 07/20/18] metoprolol succinate ER 25 mg tablet,extended release 24 hr 25 mg PO BID #60 tab 06/21/18 [Rx Confirmed 07/20/18] Incentive Spirometer #1 ea 07/20/18 [Rx Confirmed 07/20/18] apple cider vinegar 500 mg tablet mg PO tab 07/20/18 [History Confirmed 07/20/18] lisinopril 2.5 mg tablet 2.5 mg PO DAILY 07/20/18 [History Confirmed 07/20/18] multivitamin with iron-mineral tablet 1 tab PO DAILY 07/20/18 [History Confirmed 07/20/18] tiotropium bromide 2.5 mcg/actuation mist for inhalation 2 puff INHALATION QDAY #1 ea 07/20/18 [Rx Confirmed 07/20/18] compression stocking,knee high,regular,large circumfer. See Dose Instructions .ROUTE .MEDSUPPLY #2 ea 07/21/18 [Rx Confirmed 07/21/18] furosemide 40 mg tablet 40 mg PO .COMPLEX tab 07/21/18 [History] PFSH Medical History Atrial fibrillation (Acute) Shortness of breath (Chronic) Acute on chronic diastolic CHF (congestive heart failure) (Acute) Anemia (Chronic) Thrombocytopenia (Chronic) Pain on swallowing (Acute) Premature atrial contractions (Acute) MDS (myelodysplastic syndrome), low grade (Chronic) Hypotension (Acute) Paroxysmal atrial tachycardia (Acute) Paroxysmal ventricular tachycardia (Acute) Premature ventricular contraction (Acute) Palpitations (Acute) HTN (hypertension) (Chronic) Hyperlipidemia (Chronic) Hypertension (Chronic) Hyperlipemia (Chronic) Type 2 diabetes mellitus (Chronic) COPD (chronic obstructive pulmonary disease) (Chronic) Bilateral hip pain (Acute) Contusion of right knee (Acute) Inguinal hernia (Acute) Low back pain (Acute) Prepatellar bursitis, right knee (Acute) Thrombocytopenia (Acute) heart catheterization (Acute) Arthritis (Chronic) BPH (benign prostatic hyperplasia) (Chronic) BPH (benign prostatic hyperplasia) (Chronic) MDS (myelodysplastic syndrome), low grade (Chronic) Surgical History H/O hernia repair (Chronic) 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) History of hand surgery (Resolved) Family History Mother Cancer, Onset Age: 59 Pancreatic Father Cancer, Onset Age: 44 Intestinal Brother Cancer, Onset Age: 78 Son CVA (cerebral vascular accident) Diabetes Mother Cancer Social History household members: none housing: house current occupational status: retired pets and animals: No Smoking Status: Former smoker quit date: 08/17/80 pack-years: 26 how long ago did patient quit smokin second hand exposure: No alcohol intake: never substance use type: does not use what type of physical activity do you participate in: none HPI HPI Chief Complaint: follow-up visit Details: ANGEL BRIGGS, is a 82 M who presents to the office today for follow-up of his chronic conditions. The patient has a past medical history as listed above. The patient presents today with complaints of dizziness and falls. He states recently he is fallen about 4 times, injuries include bruising, patient denies hitting his head or LOC. He states when he stands up and goes to walk he does not make it far before he gets dizzy and falls. This recently occurred 5 days ago after getting up first thing in the morning out of bed. He states he understands he needs to change positions more slowly, but does not often do so. Patient monitors his blood pressure at home and states averages 120/60. He does not currently weigh himself daily, only occasionally. He states shortness of breath is at his baseline. The patient otherwise denies any fever, chills, nausea, vomiting, shortness of breath, chest pain or pressure, palpitations, orthopnea, or syncopal episodes. ROS Const Constitutional: Positive for frequent falls; no body ache, chills, headache(s), weakness or fever(s) Eyes Eyes: No blurry vision, change in vision, eye pain or discharge ENT ENT: No headache(s), abnormal hearing, ear pain, ear pressure, tinnitus, dizziness/vertigo or balance problems Resp Respiratory: No cough, shortness of breath or wheezing Cardio Cardiology: No chest pain at rest, shortness of breath, dyspnea on exertion or palpitations Gastro GI: No abdominal pain or bloating Musc Musculoskeletal: No muscle weakness Neuro Neurology: Positive for dizziness (if he gets up to quick ), unsteady gait/balance (has fallen 4x recently) and frequent falls; no headache(s), weakness or abnormal hearing Aller/Imm Allergy/Immunologic: No wheezing Exam Const General: cooperative, comfortable, no acute distress Nutritional Appearance: average body habitus, well nourished Orientation: alert, oriented x3 Limitations: mental status not altered [facility] Head: normal to inspection Ears: hearing grossly normal bilaterally Nose: external nose normal Eyes General: appearance normal, both eyes and all related structures Resp Effort AND Inspection: normal respiratory effort, able to speak in complete sentences, normal respiratory pattern, symmetric chest movement, no audible wheezes, no cough Auscultation: Bilateral: Clear to Auscultation Cardio Palpation: normal PMI Rhythm: abnormal rhythm irregularly irregular Heart Sounds: S1 normal, S2 normal, normal S1 and S2, no click, no gallops, no murmurs, no rubs Musc Musculoskeletal: No joint tenderness, decreased ROM or muscle weakness Skin General: no rashes or lesions noted, elasticity normal, turgor normal, ecchymosis (Left upper arm in various stages of healing) Lesions: no lesions Rashes: no rashes Neuro General: alert, awake, oriented x3, CN's II-XI intact bilaterally Speech: speech normal Gait: normal gait Motor: muscle tone normal throughout Extrem General: normal to inspection, normal gait, pedal edema bilaterally Location: of the foot Severity: pitting and 2+, of the ankle Severity: pitting and 2+ and of the leg Severity: pitting and 2+ Psych Appearance: grossly normal Mental Status: mental status grossly normal Affect: normal affect Attitude: cooperative Thought Process: normal Assessment AND Plan Problems 1. Orthostatic hypotension I95.1 2. Fall W19.XXXA 3. Dizziness R42 Plan Orthostatic blood pressure positive in office today. Laying 132/68, sitting 110/60, and standing 100/52 we will decrease patient's Lasix to 40 mg in the morning and 20 mg in the afternoon. Compression stockings ordered patient encouraged to wear daily and on leg elevation. Patient encouraged to weigh himself daily and notify office with weight gain greater than 2 lbs in a day. Patient encouraged low-sodium diet. Patient to follow-up with cardiology next week. Patient educated on signs and symptoms that would warrant emergency medical care. If continues to have problems with orthostatic hypotension, will discontinue the lisinopril. This note was generated with [employer] dictation software. It may contain incorrect words, spelling, and punctuation that were not noted in checking the note before signing. Medications New: compression stocking,knee high,regular,large Wear daily for venous insufficiency 20-30 mmH circumfer. g 2 ea 0RF Plan Detail Follow Up 1 Month Coding Level of Care Code Off vis,est,level 3 Diagnoses Orthostatic hypotension I95.1 Fall W19.XXXA Dizziness R42 07/22/18 1037 <Electronically signed by Jack ROY> Date Jack ROY Cosigner Signature: Date (if applicable) CC: PULMONARY VISIT REPORT Observed: 07/20/2018 Status: F Source: MOBILE 1:04 PM [facility] REPOSITORY [facility] [address] [place] [address] OFFICE VISIT Date of Service: 07/20/18 MR#: [id number] Acct: [id number] Name: BRIGITTEANGEL G Rep #: [id number] : 1935 Provider: Jenna Gerber Age/Sex: 82/M Location: [facility] [place] Status: Signed Assessment AND Plan 1. DEAN (obstructive sleep apnea) G47.33 Plan After lengthy discussion regarding the benefits of sleep apnea treatment and the risks of untreated sleep apnea the patient is willing to complete a split-night study to quantify his sleep apnea and direct therapy. Also discussed the goals that he would wear the device at least 4 hours nightly, he does report some concern on his ability to wear a full facemask and would like to try something with nasal pillows. Follow-up with Dr. Connolly in 2 months, at which time they can discuss his test results, review a compliance report and evaluate how he is responding to therapy. Orders Orders: 2. Acute on chronic diastolic CHF (congestive heart failure) I50.33 Plan Complicates exam, plan, care and prognosis. Defer management to cardiology. 3. Pulmonary hypertension I27.20 Plan New. Encouraged to continue compliance with supplemental oxygen to maintain saturations 89-92%. Encouraged to purchase a portable pulse oximeter to monitor saturations. Identification of sleep apnea and treatment with Pap therapy will be helpful in controlling his pulmonary hypertension and the secondary symptoms such as his shortness of breath and hypoxia. Follow up with Dr. Connolly in 2 months, at which time they can discuss test results and continue to develop a plan. 4. Acute on chronic respiratory failure with hypoxia J96.21 Plan The patient is using and benefiting from oxygen. Continue to utilize to maintain a saturation of 89-92%. Follow-up in 3 months. 5. Chronic obstructive pulmonary disease, unspecified COPD type J44.9 Orders Orders: Plan Detail Other Medications New: Follow Up 2 Months (DMB) HPI HPI Comments Details: This patient presents the office today follow-up on his shortness of breath and to discuss recent test results. He is in a wheelchair, wearing nasal cannula oxygen and accompanied today by son. He continues to experience shortness of breath, almost at all times. He reports occasional dizziness and admits that he has fallen multiple times in his home. He denies any chest pain or palpitations. He has not experienced any cough, sputum production or hemoptysis. He does have some chest congestion and reports that at night he has increase in mucus production when he tries to lie down to sleep. He admits that he sleeps in bed for approximately 1 hour and then the mucus begins to cause him some difficulty and he spends the rest of the night trying to sleep in the chair. At the last office visit he was prescribed Anoro. He states this medication caused nosebleeds and increased his tremors. He stopped using the medication shortly thereafter. He is currently only using his Ventolin rescue inhaler, which he uses daily but does not see that it reduces his shortness of breath. He is compliant with 2 L of nasal cannula oxygen at all times. He does not currently have a portable pulse oximeter to check his oxygen saturations at home. CT of the chest completed on July 19, 2018, findings are consistent with emphysematous changes of the lungs predominantly involving the upper lobes. Interval resolution of a probable left upper lobe infiltrate noted on previous study. Mosaic attenuation pattern of the lungs. Coarse bronchopulmonary markings of the posterior left upper lobe and superior segment of the left upper lobe consistent with atelectasis and/or fibrosis. Intake Vital Signs07/20/18 Body Mass Index (BMI) 33.7 07/20/18 Height 5 ft 10 in 07/20/18 Weight: 223 lb 07/20/18 Body Mass Index (BMI) 32.0 Intake Visit Reasons: 1 M FU Accompanied by: Son Allergies codeine Adverse Reaction (Severe, Verified 07/20/18 08:29) Unknown Medications Metformin HCl [Glucophage] 1,000 mg PO DAILY 05/26/18 [History Confirmed 07/20/18] Tamsulosin HCl [Flomax] 0.4 mg PO DAILY 05/26/18 [History Confirmed 07/20/18] simvastatin 20 mg tablet 20 mg PO QHS #90 tab 05/31/18 [Rx Confirmed 07/20/18] albuterol sulfate HFA 90 mcg/actuation aerosol inhaler 1 puff INHALATION Q6H PRN #8.5 g 06/07/18 [Rx Confirmed 07/20/18] guaifenesin ER 1,200 mg tablet, extended release 12 hr 1,200 mg PO Q12H #90 tab 06/14/18 [Rx Confirmed 07/20/18] amiodarone 200 mg tablet 200 mg PO DAILY #30 tab 06/21/18 [Rx Confirmed 07/20/18] apixaban 2.5 mg tablet 2.5 mg PO BID #60 tab 06/21/18 [Rx Confirmed 07/20/18] furosemide 40 mg tablet 40 mg PO BID #60 tab 06/21/18 [Rx Confirmed 07/20/18] metoprolol succinate ER 25 mg tablet,extended release 24 hr 25 mg PO BID #60 tab 06/21/18 [Rx Confirmed 07/20/18] Incentive Spirometer #1 ea 07/20/18 [Rx Confirmed 07/20/18] apple cider vinegar 500 mg tablet mg PO tab 07/20/18 [History Confirmed 07/20/18] cyanocobalamin (vit B-12) 500 mcg tablet 1,000 mcg PO DAILY tab 07/20/18 [History Confirmed 07/20/18] lisinopril 2.5 mg tablet 2.5 mg PO DAILY 07/20/18 [History Confirmed 07/20/18] multivitamin with iron-mineral tablet 1 tab PO DAILY 07/20/18 [History Confirmed 07/20/18] tiotropium bromide 2.5 mcg/actuation mist for inhalation 2 puff INHALATION QDAY #1 ea 07/20/18 [Rx Confirmed 07/20/18] [facility] Medical History Atrial fibrillation (Acute) Shortness of breath (Chronic) Acute on chronic diastolic CHF (congestive heart failure) (Acute) Anemia (Chronic) Thrombocytopenia (Chronic) Pain on swallowing (Acute) Premature atrial contractions (Acute) MDS (myelodysplastic syndrome), low grade (Chronic) Hypotension (Acute) Paroxysmal atrial tachycardia (Acute) Paroxysmal ventricular tachycardia (Acute) Premature ventricular contraction (Acute) Palpitations (Acute) HTN (hypertension) (Chronic) Hyperlipidemia (Chronic) Hypertension (Chronic) Hyperlipemia (Chronic) Type 2 diabetes mellitus (Chronic) COPD (chronic obstructive pulmonary disease) (Chronic) Bilateral hip pain (Acute) Contusion of right knee (Acute) Inguinal hernia (Acute) Low back pain (Acute) Prepatellar bursitis, right knee (Acute) Thrombocytopenia (Acute) heart catheterization (Acute) Arthritis (Chronic) BPH (benign prostatic hyperplasia) (Chronic) BPH (benign prostatic hyperplasia) (Chronic) MDS (myelodysplastic syndrome), low grade (Chronic) Surgical History H/O hernia repair (Chronic) 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) History of hand surgery (Resolved) Family History Mother Cancer, Onset Age: 59 Pancreatic Father Cancer, Onset Age: 44 Intestinal Brother Cancer, Onset Age: 78 Son CVA (cerebral vascular accident) Diabetes Mother Cancer Social History household members: none housing: house current occupational status: retired pets and animals: No Smoking Status: Former smoker quit date: 08/17/80 pack-years: 26 how long ago did patient quit smokin second hand exposure: No alcohol intake: never substance use type: does not use what type of physical activity do you participate in: none Review of Systems Const CONSTITUTIONAL: Positive anorexia, sleeping in chair and fatigue; negative body ache, chills, daytime sleepiness, fever(s), night sweats, oral thrush, stops breathing during sleep, weight loss, weight loss, weight gain, frequent colds, seasonal allergies, other, headache(s) or orthopnea EETM Ear Nose Throat Mouth: Positive hearing normal; negative hard of hearing, hoarseness, dry mouth in morning, change in vision, itchy eyes, eye pain, swallowing Difficulty, ear pain, nose bleed, headache(s), mouth pain, nasal congestion, nasal discharge, post nasal drip, sinus pain, sinus pressure, sore throat or other Cardio Cardiovascular: Negative chest pain, chest pain at rest, chest pain with activity, irregular heart rhythm, edema, shortness of breath when lying down, palpitations, murmur or other Resp Respiratory: Positive as per HPI, shortness of breath shortness of breath: Positive with activity and apnea; negative pain with cough, wheezing, chest congestion, cough, chest tightness, pain on inspiration, inhalers, increase use of rescue inhalers, snoring or other Gastro Gastrointestional: Positive change in appetite; negative bloody stools, difficulty swallowing, reflux, hematemesis, melena stool, loose stool, constipation or other Genitourinary: Positive nocturia; negative blood in urine, pain with urination or other Musc Musculoskeletal: Negative body pain, back pain, neck pain or other Skin/Breast Skin/Breast: Negative dry skin, itching, rash, unusual bruising, breast lump or other Neuro Neurological: Negative restless legs, confusion, weakness or other (dizziness) Psych Psychocological: Positive abnormal sleep pattern and anxiety; negative thoughts of hurting self/others, hopelessness or other Lymph Lymphatic: Positive easy bruising; negative easy bleeding, swollen lymph nodes or other Exam Const Constitutional: Positive conversant, cooperative, in no acute respiratory distress, well developed, well nourished, frail appearing, wearing supplemental oxygen and dyspenic Head Head: Positive normocephalic and atraumatic; negative cyanosis of lips/distal nose Eyes Eye: Positive clear conjunctiva; negative nystagmus or scleral abnormality Ears Ear: Positive hearing normal and external ears normal; negative hard of hearing Nose Nose: Positive external nose normal and no nasal discharge; negative epistaxis Mouth Mouth: Positive oral mucosae normal, no lesions, dentures and crowded posterior oropharynx; negative post nasal drip, malodorous breath or oral thrush present Mallampati Score: III: Mallampati Score Neck Neck: Positive normal visual inspection, full ROM and trachea midline; negative lymphadenopathy, JVD or tender Chest Wall Chest: Positive symmetric chest movement and increased A/P diameter Resp lung sounds: Positive diminished, prolonged expiratory time and normal chronic state of increased work of breathing; negative wheezes, rhonchi, rales, dullness to percussion or wheeze present on forced exhalation Cardio Cardiac: Positive regular rate, regular rhythm, S1 normal and S2 normal; negative murmur GI GI: Positive normal to inspection; negative distended Genitourinary: Positive deferred Musc Musculoskeletal: Positive ROM normal and in a wheelchair; negative kyphosis or scoliosis Skin Pulmonary Skin Exam: Positive intact; negative rash Pulses Pulse: No pulses normal x4 extremities Extremities Extremities: Yes capillary refill normal, No clubbing, No cyanosis, Yes edema Location: lower extremity location: Bilateral pitting +1 Neuro Neurologic: Yes conversant, Yes no focal neuro deficits, Yes normal concentration, Yes understands questions, Yes cooperative, Yes normal cognition, Yes normal coordination, Yes tremor Lymph Lymphatic: No lymphadenopathy, No tenderness, No cervical adenopathy Psych Appearance: Positive grossly normal, eye contact and well kempt Mental Status: Positive mental status grossly normal Mood: Positive anxious mood Affect: Positive anxious affect Office Procedures Inhaler Training Inhaler Training Procedure performed by: Jenna Gerber Inhaler Training: Yes personally trained on inhaler use, sample provided, first dose given in the office, expresses understanding and continue to monitor Coding Level of Care Code Off vis,est,level 4 Diagnoses DEAN (obstructive sleep apnea) G47.33 Acute on chronic diastolic CHF (congestive heart failure) I50.33 Pulmonary hypertension I27.20 Acute on chronic respiratory failure with hypoxia J96.21 Chronicity: acute on chronic Respiratory failure complication: hypoxia Chronic obstructive pulmonary disease, unspecified COPD type J44.9 COPD type: unspecified COPD 07/20/18 1304 <Electronically signed by Jenna ROY> Date Jenna ROY Cosigner Signature: Date (if applicable) CC: Roc Martinez MD CHEST WITHOUT Observed: 07/19/2018 Status: F Source: MOBILE CONTRAST 7:51 [facility] REPOSITORY [facility] Imaging Services [address] [place] [address] Chest without Contrast MR#: [id number] Acct: [id number] Name: ANGEL BRIGGS Rep #: [id number] : 1935 M 82 From: Francisco Smith MD PCP: Roc Martinez MD Status: REG CLI Study: Chest without Contrast Date of Exam: 07/19/18 Exam# [id number] Ordering Dr: Jasmeet Connolly DO STUDY: CT CHEST WITHOUT CONTRAST REASON FOR EXAM: Male, 82 years old. Follow-up nodule, short of breath RADIATION DOSAGE (If Supplied By Facility): CTDIvol = ( 17.51 ) mGy, DLP = ( 530.97 ) mGycm TECHNIQUE: Transaxial imaging was performed without the administration of intravenous contrast material. Individualized dose optimization techniques were used for this CT. COMPARISON: Prior study of 05/04/2018 FINDINGS: There are emphysematous changes of the lungs predominantly involving the upper lobes. There has been interval resolution of a probable left upper lobe infiltrate noted on the previous study. There is a mosaic attenuation pattern of the lungs. There are coarse bronchopulmonary markings of the posterior left upper lobe and superior segment of the left lower lobe consistent with atelectasis and/or fibrosis, new in the interval. There is no evidence of discrete mass there are small bilateral pleural effusions, similar to the previous study. There is mild cardiomegaly. There is no pericardial effusion. Coronary arterial and valvular calcifications are present. There are scattered nonpathologically enlarged mediastinal nodes. Hilar areas are difficult to assess on this noncontrast study. There is no obvious hilar mass or adenopathy. There is mild dilatation of the main, left, and right pulmonary arteries. The main pulmonary artery measures up to 3.2 cm in diameter. There are calcified plaques of the thoracic aorta. There is aneurysmal dilatation of the distal arch and descending thoracic aorta measuring up to 3.7 cm in diameter. There is diffuse endplate spondylosis of the thoracic spine. There is a moderate amount of ascites. There is a 1.7 cm solid nodule of the anterior left hepatic lobe, stable in the interval. CT/Chest without Contrast IMPRESSION: 1. Emphysematous changes of the lungs predominantly involving the upper lobes. 2. There has been interval resolution of a probable left upper lobe infiltrate noted on the previous study. 3. There is a mosaic attenuation pattern of the lungs. 4. There are coarse bronchopulmonary markings of the posterior left upper lobe adjacent to the superior major fissure and superior segment of the left lower lobe, consistent with atelectasis and/or fibrosis. This is new in the interval. 5. There are small bilateral pleural effusions, similar to the previous study. 6. There is mild dilatation of the main, left, and right pulmonary arteries. The main pulmonary artery measures up to 3.2 cm in diameter. This may be associated with pulmonary hypertension. 7. 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 8. There is a moderate amount of ascites, representing a normal finding. 9. There is a solid 1.7 cm nodule of the anterior left hepatic lobe, stable in the interval. This may represent process such as hemangioma or metastatic lesion. Electronically Signed: Francisco Smith MD at 18:31 EST , Service support , CC: Jasmeet Connolly D.O.; Roc Martinez MD Medical Physics Teacher: Signed BASIC METABOLIC Collected: 07/05/2018 Status: F Source: YOSI PROFILE (BMP) 7:36 AM [facility] REPOSITORY TYPE CODE TESTS RESULT OUT OF RANGE REFERENCE UNITS LAB L501.0100 74-106 mg/dL High GLU 138 Result Comment: Fasting Glucose result greater than or equal to 126 mg/dL suggests DIABETES MELLITUS per A.D.A. criteria. Please note revised GLUCOSE reference range effective 2017. LAB L501.1000 7-18 mg/dL High BUN 38 LAB L501.1100 0.70-1.30 mg/dL High CREAT,SERUM 2.69 Result Comment: The validity of the calculated GFR AND GFRAA in patients over 70 years has not been determined. Clinical correlation is essential. LAB L501.1110 >60 mL/min Low EST GFR 24 Result Comment: Non- GFR Calc LAB L501.1115 >60 mL/min Low EST GFR - AA 29 Result Comment: GFR Calc LAB L501.1300 10-20 RATIO Normal BUN/CRE 14.1 LAB L501.2200 8.5-10.1 mg/dL CA Normal 8.8 LAB L501.5300 136-145 mmol/L NA Normal 141 LAB L501.5600 3.5-5.1 mmol/L K Normal 4.1 LAB L501.5900 98-107 mmol/L CL Normal 99 LAB L501.6100 21.0-32.0 mmol/L Normal CO2 31.0 LAB L501.6200 5-15 Normal GAP 11 Performed By: #### L500.2500 #### [facility] [place], [place], [address] BASIC METABOLIC Collected: 06/24/2018 Status: F Source: MOBILE PROFILE (BMP) 8:51 AM [facility] REPOSITORY TYPE CODE TESTS RESULT OUT OF RANGE REFERENCE UNITS LAB L501.0100 74-106 mg/dL High GLU 126 Result Comment: Fasting Glucose result greater than or equal to 126 mg/dL suggests DIABETES MELLITUS per A.D.A. criteria. Please note revised GLUCOSE reference range effective 2017. LAB L501.1000 7-18 mg/dL High BUN 42 LAB L501.1100 0.70-1.30 mg/dL High CREAT,SERUM 3.22 Result Comment: The validity of the calculated GFR AND GFRAA in patients over 70 years has not been determined. Clinical correlation is essential. LAB L501.1110 >60 mL/min Low EST GFR 20 Result Comment: Non- GFR Calc LAB L501.1115 >60 mL/min Low EST GFR - AA 24 Result Comment: GFR Calc LAB L501.1300 10-20 RATIO Normal BUN/CRE 13.0 LAB L501.2200 8.5-10.1 mg/dL CA Normal 8.5 LAB L501.5300 136-145 mmol/L NA Normal 137 LAB L501.5600 3.5-5.1 mmol/L K Normal 4.3 LAB L501.5900 98-107 mmol/L Low CL 96 LAB L501.6100 21.0-32.0 mmol/L Normal CO2 30.0 LAB L501.6200 5-15 Normal GAP 11 Performed By: #### L500.2500 #### [facility] [address] [place], [address] ONCOLOGY VISIT REPORT Observed: 06/22/2018 Status: F Source: MOBILE 5:11 PM [facility] REPOSITORY [facility] [address] [place] [address] OFFICE VISIT Date of Service: 06/17/18 1415 MR#: [id number] Acct: [id number] Name: ANGEL BRIGGS Rep #: [id number] : 1935 From: Holden Chavarria MD Age/Sex: 82/M Location: OMD Status: Signed Subjective - Date of Service Date of Service:: 06/17/18 - Chief Complaint F/u for MDS. - History of Present Illness 82-year-old man presented with pancytopenia, bone marrow biopsy on 05/26/2016 showed early MDS. He is currently on observation, comes in for follow-up. He feels well. - Past Medical/Social History Past Medical History Past Medical History: Cirrhosis,Diabetes mellitus,Hyperlipidemia, Hypertension Other Past Medical History: BPH INGUINAL HERNIAS THROMBOCTOPENIA PALPATATIONS ARYTHMIA-PVC'S PANCYTOPENIA Past Surgical History Surgical: Hip replacement Other Surgical History: LEFT HAND SURGERY Family History Paternal Past Medical History: Unknown Maternal Past Medical History: Unknown Maternal History of Cancer: Esophageal cancer,Pancreatic cancer Social History Social History: No changes Smoking Status Former smoker Review of Systems Constitutional:: Denies: Fever, Sweats, Weight loss, Appetite change, Chills Cardiovascular:: Denies: Chest pain, Palpitations, Dyspnea on exertion, Orthopnea, PND, Shortness of breath Respiratory: Denies: Cough, Hemoptysis, Shortness of Breath, Wheezing Gastrointestinal:: Denies: Abdominal pain, Nausea, Vomiting, Diarrhea, Constipation, Hematochezia Genitourinary: Denies: Dysuria, Hematuria, 15, Flank pain Musculoskeletal:: Denies: Back pain, Myalgia, Arthralgia Skin: Denies: Rash, Skin Changes, Wounds Neurological:: Denies: Headache, Dizziness, Visual changes, Tinnitus, Hearing loss Psychiatric: Denies: Anxiety, Depression, Homicidal Ideations, Suicidal Ideations Vital Signs Height 5 ft 10 in Weight: 106.231 kg Weight in Pounds 234.2 lbs Pulse Ox 93 - Physical Exam General: Alert, Oriented x3, No apparent distress HEENT: Atraumatic, PERRLA, EOMI, Normocephalic Oropharynx:: Dry mucosa Neck:: Supple, Trachea midline. Negative for: JVD, bilateral Cardiac:: Regular rate, Regular rhythm, Normal S1, Normal S2. Negative for: Murmur Lungs: Clear to auscultation, Excusion symmetrical. Negative for: Rhonchi, Wheezes Abdomen:: Bowel sounds x 4, Soft, Non-tender, Non-distended. Negative for: Hepatosplenomegaly Extremities:: Edema - legs and feet.. Negative for: Cyanosis Neurological: Neuro grossly intact Skin:: Negative for: Lesions, Rash, Petechiae, Ecchymosis Psychiatric:: Appropriate affect, Euthymic Lymphatics:: Negative for: Cervical lymphadenopathy, Supraclavicular lymphadenopathy, Axillary lymphadenopathy Laboratory Data: Laboratory Tests WBC 4.9 (4.4-11.0) K/mm3 RBC 3.26 L (4.6-6.2) M/mm3 Hgb 9.1 L (13.0-16.5) g/dl Assessment and Plan Early MDS with thrombocytopenia and anemia. Clinically stable with no indication for therapy. Plan is to continue observation. Return to clinic 3 months with CBC. Primary Care Provider: Roc Martinez MD Referring Provider: Holden Chavarria MD - Problem List (1) MDS (myelodysplastic syndrome), low grade Status: Chronic Code Visit Office Visits / Consults: 23551 OV L3 Est 06/22/18 1711 <Electronically signed by Holden Chavarria MD> Date Holden Chavarria MD Cosigner Signature: Date (if applicable) CC: CARDIOLOGY VISIT Observed: 06/21/2018 Status: F Source: [facility] REPORT 5:44 PM [facility] REPOSITORY [facility] [address] [place] [address] OFFICE VISIT Date of Service: 06/21/18 MR#: [id number] Acct: [id number] Name: ANGEL BRIGGS Rep #: [id number] : 1935 Provider: Marcelo Reynolds MD Age/Sex: 82/M Location: [facility] Status: Signed HPI HPI Details: ANGEL BRIGGS, is a 82 M who presents to the office today for outpatient cardiovascular follow-up. As you know he was hospitalized at [facility] recently. He underwent cardiovascular diagnostic studies on findings of atrial fibrillation as well as concern of elevated pulmonary pressures and findings suggestive of CHF/pulmonary edema. He had a transthoracic echocardiogram on 05/26/2018. The results are as noted below. He also underwent evaluation with a diagnostic cardiac catheterization. The results are as noted below. He was treated medically. He was released home on medications with the hope of improvement in his clinical status, stabilization on his medications with his cardiac rhythm, with the thought of future outpatient synchronized biphasic DC cardioversion. Since being home he appears to be somewhat unclear on his medication and dosage especially with respect to his diuretics. Based upon recent information he was asked to increase his diuretic therapy to 80 mg twice a day for a brief period of time and then reassess his clinical status and his electrolytes and renal function. He did not do this. Intake Vital Signs06/21/18 Height 5 ft 10 in 06/21/18 Weight: 235 lb 06/21/18 Body Mass Index (BMI) 33.7 06/21/18 Blood Pressure 102/44 L Intake Visit Reasons: 6 M FU Allergies codeine Adverse Reaction (Severe, Verified 06/21/18 14:32) Unknown Medications Metformin HCl [Glucophage] 1,000 mg PO DAILY 05/26/18 [History Confirmed 06/21/18] Tamsulosin HCl [Flomax] 0.4 mg PO DAILY 05/26/18 [History Confirmed 06/21/18] simvastatin 20 mg tablet 20 mg PO QHS #90 tab 10/15/18 [Rx Confirmed 06/21/18] albuterol sulfate HFA 90 mcg/actuation aerosol inhaler 1 puff INHALATION Q6H PRN #8.5 g 06/07/18 [Rx Confirmed 06/21/18] guaifenesin ER 1,200 mg tablet, extended release 12 hr 1,200 mg PO Q12H #90 tab 06/14/18 [Rx Confirmed 06/21/18] umeclidinium 62.5 mcg-vilanterol 25 mcg/actuation powdr for inhalation 1 inh INHALATION Q24H #1 device 06/18/18 [Rx Confirmed 06/21/18] amiodarone 200 mg tablet 200 mg PO DAILY #30 tab 06/21/18 [Rx] apixaban 2.5 mg tablet 2.5 mg PO BID #60 tab 06/21/18 [Rx Confirmed 06/21/18] furosemide 40 mg tablet 40 mg PO BID #60 tab 06/21/18 [Rx Confirmed 06/21/18] metoprolol succinate ER 25 mg tablet,extended release 24 hr 25 mg PO BID #60 tab 06/21/18 [Rx Confirmed 06/21/18] [facility] Medical History Atrial fibrillation (Acute) Shortness of breath (Chronic) Acute on chronic diastolic CHF (congestive heart failure) (Acute) Anemia (Chronic) Thrombocytopenia (Chronic) Pain on swallowing (Acute) Premature atrial contractions (Acute) MDS (myelodysplastic syndrome), low grade (Chronic) Hypotension (Acute) Paroxysmal atrial tachycardia (Acute) Paroxysmal ventricular tachycardia (Acute) Premature ventricular contraction (Acute) Palpitations (Acute) HTN (hypertension) (Chronic) Hyperlipidemia (Chronic) Hypertension (Chronic) Hyperlipemia (Chronic) Type 2 diabetes mellitus (Chronic) COPD (chronic obstructive pulmonary disease) (Chronic) Bilateral hip pain (Acute) Contusion of right knee (Acute) Inguinal hernia (Acute) Low back pain (Acute) Prepatellar bursitis, right knee (Acute) Thrombocytopenia (Acute) heart catheterization (Acute) Arthritis (Chronic) BPH (benign prostatic hyperplasia) (Chronic) BPH (benign prostatic hyperplasia) (Chronic) MDS (myelodysplastic syndrome), low grade (Chronic) Surgical History H/O hernia repair (Chronic) 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) History of hand surgery (Resolved) Family History Mother Cancer, Onset Age: 59 Pancreatic Father Cancer, Onset Age: 44 Intestinal Brother Cancer, Onset Age: 78 Son CVA (cerebral vascular accident) Diabetes Mother Cancer Social History household members: none housing: house current occupational status: retired pets and animals: No Smoking Status: Former smoker quit date: 08/17/80 pack-years: 26 how long ago did patient quit smokin second hand exposure: No alcohol intake: never substance use type: does not use what type of physical activity do you participate in: none ROS Const Const: Negative for fatigue, weakness, weight gain, weight loss, frequent falls or excessive sweating Eyes Eyes: Negative for change in vision, blurry vision or transient loss of vision ENT ENT: Negative for dizziness Cardio Chest Pain: No Palpitations: No Edema: Bilateral (+2 edema bilat LE) Muscle aches with walking: None Resp Respiratory: Positive for SOB with activity (increased); negative for SOB at rest GI GI: Negative vomiting or vomiting blood/hematemesis : Negative for hematuria Musc Musc: Positive for muscle aches/ myalgia (back pain and bilat LE ) and joint pain (HX arthritis); negative for muscle weakness Skin Skin: Negative non-healing lesions or rash Neuro Neuro: Negative for weakness, blurry vision, dizziness, lightheadedness, frequent falls or orthostatic symptoms Blade Hematologic/Lymphatic: Negative for easy bleeding Endo Endo: Negative for fatigue or excessive sweating Psych Psych: Negative for anxiety or depression Allergy Allergy/Immunology: Negative for hives, Negative for rash Cardiology Exam Const Appearance: cooperative, healthy appearing, comfortable, no acute distress, well developed and well groomed Nutritional Appearance: overweight Orientation: alert and awake Head Head: normal to inspection, normocephalic and atraumatic Ears: hearing grossly normal bilaterally Nose: external nose normal Face and Sinus: face symmetric Mouth: oral mucosae normal Eyes Eyelids: eyelids normal Conjunctivae: conjunctivae normal Pupils: PERRL EOM: EOM intact bilaterally Neck Neck: normal visual inspection and full ROM Carotids: normal carotid upstroke Chest Chest inspection: normal inspection of the chest and symmetric chest movement Auscultation: Bilateral: Diminished Base Cardio Palpation: normal PMI Rhythm: irregular rhythm Heart sounds: S1 normal and S2 normal GI GI: normal to inspection, soft and bowel sounds present Neuro General: alert, awake, oriented x3, gait normal, moves all extremities, no focal sensory deficit and no focal motor deficits Skin Skin: no rashes or lesions noted Extremities Pulses: Normal: Right Radial Pulse, Left Radial Pulse Lower Extremity Edema: +3: Bilateral Musculoskel Musculoskeletal: joint tenderness right knee Psych Psychological: normal affect Supplemental Info Transthoracic echocardiogram: 05/26/2018 Interpretation Summary Normal LV size. Moderate concentric left ventricular hypertrophy. Left ventricular systolic function is normal. The estimated ejection fraction is 60 %. Diastolic function is indeterminate. The left atrium is moderately enlarged. Stress Test: 01/07/2018 Procedure: Pharmacologic stress nuclear imaging study Indications: Shortness of breath/dyspnea on exertion Consent: Per the patient Procedure: The patient underwent pharmacologic (Regadenoson) evaluation with a peak heart rate of 110 beats per minute (79 predicted maximal heart rate) and a peak blood pressure of 138/60 mmHg. The baseline ECG demonstrated sinus rhythm; poor R-wave progression. The peak pharmacologic ECG demonstrated no obvious ECG changes. There were occasional PVCs pretest, during infusion, and recovery. There was no complaint of chest discomfort during pharmacologic infusion or recovery. The examination was discontinued secondary to completion of protocol. Impression: 1. Pharmacologic (Regadenoson) evaluation 2. Peak pharmacologic ECG with no obvious ECG changes. 3. There were occasional PVCs pretest, during infusion, and recovery 4. Nuclear images pending Myocardial perfusion imaging study: Technique: The patient was injected with 14.1 millicuries of technetium 99m Cardiolite and subsequently rest SPECT Cardiolite nuclear imaging was obtained in the horizontal long, vertical long, and short axis views. The patient underwent pharmacologic (Regadenoson) evaluation with a peak heart rate of 110 beats per minute (79 % percent predicted maximal heart rate) and a peak blood pressure of 138/60 mmHg. The patient was injected with 45 millicuries of technetium 99m Cardiolite and subsequently stress SPECT Cardiolite nuclear imaging was obtained in the horizontal long, vertical long, and short axis views. A gated Cardiolite study at peak stress was obtained. Interpretation: Rest and stress SPECT Cardiolite nuclear imaging status post realignment, normalization, and attenuation correction demonstrate uniform tracer uptake and myocardial perfusion appearing within normal limits. There is end systolic thickening and brightening. The gated Cardiolite study demonstrates myocardial thickening and inward wall motion. The reported LVEF is 54 %. Impression: 1. Rest and stress SPECT Cardiolite nuclear imaging demonstrate relative uniform tracer uptake and myocardial perfusion appearing within normal limits. 2. The gated Cardiolite study reports an LVEF of 84 %. Cardia Cath: 05/27/2018 CORONARY ANGIOGRAPHY DOMINANCE: Left Dominant LEFT HEART ASSESSMENT Left Ventricular Ejection Fraction: by LV Gram 65 % Normal LV wall motion Elevated Left Ventricular End Diastolic Pressure LVEDP: 19 mmHg RIGHT HEART ASSESSMENT Thermal CO: 7.39 Thermal CI: 3.33 Alexy CO: 8.16 Alexy CI: 3.68 PW: /33 24 PA: 60/20 34 RV: 50/6 12 RA: /14 11 PVR: 108 SVR: 855 Right Heart pressures - elevated Pulmonary Hypertension Severe Intracardiac shunting: None LEFT MAIN: Angiographically normal LEFT ANTERIOR DESCENDING ARTERY: PROX LAD: Mild calcification, Eccentric: 25 - 50 % Stenosis CIRCUMFLEX ARTERY: OSTIAL CIRC: 25 % Stenosis MID CIRC: Mild calcification, Eccentric: 25 % Stenosis RIGHT CORONARY ARTERY: OSTIAL RCA: Severe calcification, is occluded COLLATERAL FLOW: Collateral flow from Left to Right VALVE FINDINGS: Normal Aortic Valve function Normal Mitral Valve function AORTIC ROOT: Angiographically normal Assessment AND Plan 1. Atrial fibrillation I48.91 Plan At the present time he remains in atrial fibrillation. This is confirmed by his ECG today. He will continue medical therapy with his rate limiting therapy, antiarrhythmic therapy, and anticoagulant therapy. He does need to maintain his anticoagulant therapy without interruption for approximately 4 weeks prior to attempt at synchronized biphasic DC cardioversion. Orders Orders: 2. Paroxysmal ventricular tachycardia I47.2 Plan He does have a history of PVCs. He is done well on his beta- blockers. This will be continued 3. Acute on chronic diastolic CHF (congestive heart failure) I50.33 Plan It appeared he had evidence of acute on chronic diastolic mediated CHF as he had preserved LV systolic function. It is unclear whether this was triggered by his atrial dysrhythmia. At the present time he continues control of his atrial dysrhythmia. He will continue medical therapy. As he appears edematous he will increase his furosemide to 80 mg twice daily through the morning of 06/24/2018. He will then have a follow-up BMP. His medications will be readjusted as deemed appropriate based upon his response and his laboratory studies. This information was written for him, read back to the medical staff by him, with the hopes that he will be able to complete this task. At the same time he continues noncardiac evaluation care of concerns of his shortness of breath and dyspnea by pulmonology. Orders Orders: 4. Hyperlipidemia, unspecified hyperlipidemia type E78.5 Plan He will continue evaluation and care as needed 5. Essential hypertension I10 Plan He will continue follow-up of his blood pressure. His medications can be adjusted as needed 6. Chronic obstructive pulmonary disease, unspecified COPD type J44.9 Plan Does have underlying COPD. He was found to have evidence of pulmonary hypertension. Again this may be a combination of cardiac and noncardiac. He continues evaluation and care by pulmonology as well. 7. Shortness of breath R06.02 Plan He has shortness of breath. Again he is undergoing cardiovascular evaluation and pulmonary evaluation. He is wearing O2 nasal cannula. Plan Detail Other Medications New: Changed: Additional Comments He will be scheduled for the upcoming laboratory studies. He will be scheduled for an upcoming visit as well to reassess his status. Hopefully over time if he is on his medications, stable, etc. he will be able to proceed with an attempt at synchronized biphasic DC cardioversion therapy. Thank you for allowing me to participate in the care of your patient. Please don't hesitate to call if any issues arise. This note was generated using a voice recognition system and there may be incorrect words, spelling or punctuation that were not noted when reviewing the office note prior to saving. Follow Up 6 Weeks (PFM) Coding Level of Care Code Off vis,est,level 4 Diagnoses Atrial fibrillation I48.91 Paroxysmal ventricular tachycardia I47.2 Acute on chronic diastolic CHF (congestive heart failure) I50.33 Hyperlipidemia, unspecified hyperlipidemia type E78.5 Hyperlipidemia type: unspecified Essential hypertension I10 Hypertension type: essential hypertension Chronic obstructive pulmonary disease, unspecified COPD type J44.9 COPD type: unspecified COPD Shortness of breath R06.02 Coding Level of Care Code Off vis,est,level 4 Diagnoses Atrial fibrillation I48.91 Paroxysmal ventricular tachycardia I47.2 Acute on chronic diastolic CHF (congestive heart failure) I50.33 Hyperlipidemia, unspecified hyperlipidemia type E78.5 Hyperlipidemia type: unspecified Essential hypertension I10 Hypertension type: essential hypertension Chronic obstructive pulmonary disease, unspecified COPD type J44.9 COPD type: unspecified COPD Shortness of breath R06.02 06/21/18 1744 <Electronically signed by Marcelo Reynolds MD> Date Marcelo Reynolds MD Cosigner Signature: Date (if applicable) CC: Ryne Garvin MD 12 LEAD EKG PERFORMED Observed: 06/21/2018 Status: F Source: [facility] BY [facility] 2:44 PM [facility] REPOSITORY [id number] [place] [address] 12 Lead EKG performed by [facility] 06/21/18 1444 MR#: [id number] Acct: [id number] Name: ANGEL BRIGGS Rep #: [id number] : 1935 82 From: Marcelo Reynolds MD Attending Dr: Marcelo Reynolds MD Status: DEP AMB Ordering Dr: Marcelo Reynolds MD Date: 06/21/18 [place] [facility] [place] M C Admitted: [facility]/12 Lead EKG performed by [facility] ECG Report Interpretation Atrial fibrillation Diffuse low voltage. Poor R wave progressionAnterior MD, age undetermined, cannot be excludedInferior infarct, age undetermined, cannot be excludedABNORMAL Electronically signed on 06/21/2018 at 18:13 by Marcelo Reynolds Software Version [id number] 06/21/18 1814 Date Marcelo Reynolds MD CC: Date Dictated: 06/21/18 1444 Date Transcribed: 06/21/181443 Medical Physics Teacher: PM Signed INTERNAL MEDICINE Observed: 06/21/2018 Status: F Source: YOSI OFFICE VISIT 1:04 PM [facility] [address] [place] [address] OFFICE VISIT Date of Service: 06/21/18 MR#: [id number] Acct: [id number] Name: ANGEL BRIGGS Rep #: [id number] : 1935 Provider: Roc Martinez MD Age/Sex: 82/M Location: [facility] Status: Signed Intake Vital Signs06/21/18 Height 5 ft 10 in Intake Visit Reasons: 1 MO FU Chief Complaint: follow-up visit Is patient in pain?: No Allergies codeine Adverse Reaction (Severe, Verified 06/18/18 08:49) Unknown Medications Metformin HCl [Glucophage] 1,000 mg PO DAILY 05/26/18 [History Confirmed 06/18/18] Tamsulosin HCl [Flomax] 0.4 mg PO DAILY 05/26/18 [History Confirmed 06/18/18] Amiodarone HCl [Cordarone] 200 mg PO TID #90 tab 05/29/18 [Rx Confirmed 06/18/18] simvastatin 20 mg tablet 20 mg PO QHS #90 tab 05/31/18 [Rx Confirmed 06/18/18] albuterol sulfate HFA 90 mcg/actuation aerosol inhaler 1 puff INHALATION Q6H PRN #8.5 g 06/07/18 [Rx Confirmed 06/18/18] guaifenesin ER 1,200 mg tablet, extended release 12 hr 1,200 mg PO Q12H #90 tab 06/14/18 [Rx Confirmed 06/18/18] umeclidinium 62.5 mcg-vilanterol 25 mcg/actuation powdr for inhalation 1 inh INHALATION Q24H #1 device 06/18/18 [Rx Confirmed 06/18/18] apixaban 2.5 mg tablet 2.5 mg PO BID #60 tab 06/21/18 [Rx Confirmed 06/21/18] furosemide 40 mg tablet 40 mg PO DAILY #90 tab 06/21/18 [Rx Confirmed 06/21/18] metoprolol succinate ER 25 mg tablet,extended release 24 hr 25 mg PO BID #60 tab 06/21/18 [Rx Confirmed 06/21/18] [facility] Medical History Atrial fibrillation (Acute) Shortness of breath (Chronic) Acute on chronic diastolic CHF (congestive heart failure) (Acute) Anemia (Chronic) Thrombocytopenia (Chronic) Pain on swallowing (Acute) Premature atrial contractions (Acute) MDS (myelodysplastic syndrome), low grade (Chronic) Hypotension (Acute) Paroxysmal atrial tachycardia (Acute) Paroxysmal ventricular tachycardia (Acute) Premature ventricular contraction (Acute) Palpitations (Acute) HTN (hypertension) (Chronic) Hyperlipidemia (Chronic) Hypertension (Chronic) Hyperlipemia (Chronic) Type 2 diabetes mellitus (Chronic) COPD (chronic obstructive pulmonary disease) (Chronic) Bilateral hip pain (Acute) Contusion of right knee (Acute) Inguinal hernia (Acute) Low back pain (Acute) Prepatellar bursitis, right knee (Acute) Thrombocytopenia (Acute) heart catheterization (Acute) Arthritis (Chronic) BPH (benign prostatic hyperplasia) (Chronic) BPH (benign prostatic hyperplasia) (Chronic) MDS (myelodysplastic syndrome), low grade (Chronic) Surgical History H/O hernia repair (Chronic) 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) History of hand surgery (Resolved) Family History Mother Cancer, Onset Age: 59 Pancreatic Father Cancer, Onset Age: 44 Intestinal Brother Cancer, Onset Age: 78 Son CVA (cerebral vascular accident) Diabetes Mother Cancer Social History household members: none housing: house current occupational status: retired pets and animals: No Smoking Status: Former smoker quit date: 08/17/80 pack-years: 26 how long ago did patient quit smokin second hand exposure: No alcohol intake: never substance use type: does not use what type of physical activity do you participate in: none HPI HPI Chief Complaint: follow-up visit Details: ANGEL BRIGGS, is a 82yo M who presents to the office today for questions surrounding his medications. It appears he has been off of his metoprolol, Eliquis and Lasix. Currently on oxygen. Still reports shortness of breath with activity otherwise his symptoms are for the most part stable. ROS Const Constitutional: No weight change, body ache, chills, fatigue, sleep problems, fever(s), change in appetite, snoring, weakness, frequent falls, headache(s) or excessive sweating Eyes Eyes: No change in vision, eye pain, light sensitivity or blurry vision ENT ENT: No headache(s), abnormal hearing, ear pain, tinnitus, nasal congestion, sore throat or neck pain Resp Respiratory: No snoring, cough, shortness of breath or wheezing Cardio Cardiology: No excessive sweating, chest pain at rest, chest pain with exertion, shortness of breath, dyspnea on exertion, palpitations, orthopnea or lightheadedness Gastro GI: No abdominal pain, change in bowel habits, constipation, diarrhea, vomiting, nausea/dyspepsia or cramping Genitourinary Male: No painful urination, urinary incontinence, urinary frequency, urinary urgency, blood in urine, testicle pain or other Musc Musculoskeletal: No neck pain, abnormal walking, joint pain, back pain, limited range of motion, numbness, tingling or muscle weakness Skin Skin: No redness, dry skin, itching, lesions, wounds or rash Neuro Neurology: No weakness, frequent falls, headache(s), abnormal hearing, abnormal walking, numbness, tingling, abnormal speech, dizziness or memory loss Psych Psychiatric: No change in appetite, No memory loss, No anxiety, No depression, No Thoughts of harming yourself/Others Endo Endocrine: No fatigue, excessive sweating, cold intolerance, increased thirst/drinking, heat intolerance, flushing or increased hunger Aller/Imm Allergy/Immunologic: No wheezing, itchy eyes, hives or seasonal allergy symptoms Blade/Lymp Hematologic/Lymphatic: No easy bleeding, easy bruising or enlarged lymph nodes Exam Const General: cooperative, no acute distress Orientation: alert, awake, oriented x3 HENMT Head: atraumatic, normocephalic Ears: hearing grossly normal bilaterally Resp Effort AND Inspection: normal respiratory effort, able to speak in complete sentences Auscultation: Bilateral: Clear to Auscultation, Diminished Base Cardio Rate: regular rate Rhythm: abnormal rhythm Heart Sounds: S1 normal, S2 normal GI Palpation: soft, no hepatosplenomegaly Musc Musculoskeletal: No muscle weakness Neuro General: alert, awake, oriented x3, moves all extremities, CN's II-XI intact bilaterally Extrem General: pedal edema Psych Appearance: grossly normal Mental Status: mental status grossly normal Mood: congruent mood Affect: normal affect Assessment AND Plan 1. Atrial fibrillation I48.91 Plan Now again in A. fib. Rate controlled. Has been off of his metoprolol and Eliquis. Refills given. Advised patient to always call the office prior to medications running out. Scheduled to follow-up with Dr. Reynolds shortly. Continue amiodarone and other management. 2. Shortness of breath R06.02 Plan Persistent. Has been able to do a little more with oxygen. Scheduled for repeat CAT scan soon. Refills for Lasix given. Continue current management. This note was generated with Connect HQation software. It may contain incorrect words, spelling, and punctuation that were not noted in checking the note before signing. Plan Detail Other Medications Refilled: Coding Level of Care Code Off vis,est,level 3 Diagnoses Atrial fibrillation I48.91 Shortness of breath R06.02 06/21/18 1304 <Electronically signed by Roc Martinez MD> Date Roc Martinez MD Cosigner Signature: Date (if applicable) CC: PULMONARY VISIT REPORT Observed: 06/18/2018 Status: F Source: MOBILE 9:49 AM [facility] REPOSITORY [facility] [address] [place] [address] OFFICE VISIT Date of Service: 06/18/18 MR#: [id number] Acct: [id number] Name: ANGEL BRIGGS Rep #: [id number] : 1935 Provider: Jasmeet Connolly D.O. 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 He is currently prescribed Spiriva and as needed albuterol. However, he is utilizing his rescue inhaler on average 3 times per day. Therefore, I recommended that we transition the patient from Spiriva to Anoro, to be used in conjunction with his rescue inhaler. Inhaler technique was reviewed with the patient. I did personally supervise the patient self administering his first dose of his new inhaler. The patient also underwent an in office walking oximetry study today. The patient was only saturating in the mid 80s on room air at rest and did desaturate to 84% with ambulation. He did require 2 L/min of continuous- flow supplemental oxygen to improve oxygen saturations at or above 88%. I would recommend that the patient utilize 2 L/min of supplemental oxygen at all times moving forward. 2. Pulmonary hypertension I27.20 Plan The patient has known underlying pulmonary hypertension, which is likely the consequence of underlying heart failure combined with chronic exertional hypoxia and underlying obstructive lung disease. I am concerned that the patient needs additional augmentation of his diuretic regimen, given his significant lower extremity edema. I did call and speak with Dr. Reynolds who indicated they will contact the patient to get him in for a sooner office visit. I am also going to refer the patient to the sleep lab to undergo a diagnostic polysomnogram. In addition to the aforementioned, the patient's prior autoimmune workup was abnormal. At his last office visit, he was referred to rheumatology. However, he is yet to schedule an appointment. Therefore, our office staff called and scheduled an appointment for him. 3. Abnormal chest CT R93.89 Plan The patient's prior chest CT from April did reveal evidence of nodular densities, for which I recommended that he obtain a repeat noncontrasted chest CT in 1 month, prior to his follow-up office visit with us. Orders Orders: 4. Heart failure with preserved ejection fraction I50.30 Plan Continue current diuretic regimen and follow-up with cardiology. 5. Hypersomnia G47.10 Plan Recommend proceeding with diagnostic polysomnogram. Orders have been placed accordingly. Orders Orders: Plan Detail Other Orders Orders: Other Medications New: umeclidinium-vilanterol 62.5-25 mcg/actuation (Anoro E1 inh Inhalation Q24H 1 device 3RF llipta) Discontinued: tiotropium bromide puncture 1 cap using device; one d1 cap Inhalation DAILY breathing ose = 2 inhalations ; do NOT swallow or open capsule Discontinued Reason: Order Changed Follow Up 1 Month ([facility]) HPI HPI Comments Details: The patient is an 82-year-old male who presents to the clinic today for a routine scheduled follow-up office visit. If you recall, I initially saw the patient in consultation in mid May 2018 when he was admitted to the hospital with shortness of breath. He was noted to be in new onset atrial fibrillation at that time. The patient has a history of MDS diagnosed via bone marrow biopsy in May 2016. He has been followed periodically by Dr. Chavarria on an outpatient basis. He has remained clinically stable without indication for therapy. The patient has a 50-vryh-djpc smoking history, having quit completely 30 years ago. 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 Pulmonary function testing was completed in May 2018 and revealed evidence of a moderately severe mixed ventilatory defect with no significant response to aerosolized bronchodilators and symmetric reduction in diffusing capacity. A 6-minute walk test was also completed at that time. The patient was able to ambulate 590 feet and did demonstrate a significant oxygen desaturation with a zoe of 89%. The patient's last surface echocardiogram completed on May 28, 2018 revealed normal LV size with moderate concentric LVH and an ejection fraction of 60%. The patient did undergo a cardiac catheterization in May 2018 which revealed catawba multivessel coronary disease and an ejection fraction of 65%. The patient did undergo a prior chest CT in April 2018 which revealed nodular densities bilaterally, the largest of which measured 3.4 x 2.6 cm in the left upper lobe. Emphysematous changes were noted in the upper lobes. RIGHT HEART ASSESSMENT Thermal CO: 7.39 Thermal CI: 3.33 Alexy CO: 8.16 Alexy CI: 3.68 PW: /33 24 PA: 60/20 34 RV: 50/6 12 RA: /14 11 PVR: 108 SVR: 855 Of note, during the patient's cardiac catheterization, he was noted to have an elevated LVEDP. As part of the patient's initial preliminary workup for his pulmonary hypertension, an autoimmune panel was obtained. The panel did reveal that the patient was positive for TIFFANI with a high atypical pANCA titer and was positive for WOMEN NURSE antibody. He was subsequently referred to rheumatology. However, the patient is yet to schedule an appointment with them. Today, the patient reports ongoing exertional shortness of breath. He does report increasing lower extremity edema. He is currently utilizing Spiriva and as needed albuterol. He states that on average he is utilizing his rescue inhaler 3 times per day. He does report symptom improvement with use of his short acting beta agonist. He does report audible snoring with sleeping. In addition, he reports the presence of nonrestorative sleep and daytime hypersomnolence. The patient does report occasional wheezing, but denies the presence of chest tightness. He reports no chest pain, dizziness or lightheadedness. Intake Vital Signs06/18/18 Pulse Ox 93 Intake Visit Reasons: per DMB Seat Coverer Required: No Accompanied by: Self Allergies codeine Adverse Reaction (Severe, Verified 06/18/18 08:49) Unknown Medications Metformin HCl [Glucophage] 1,000 mg PO DAILY 05/26/18 [History Confirmed 06/18/18] Tamsulosin HCl [Flomax] 0.4 mg PO DAILY 05/26/18 [History Confirmed 06/18/18] Amiodarone HCl [Cordarone] 200 mg PO TID #90 tab 05/29/18 [Rx Confirmed 06/18/18] Apixaban [Eliquis] 2.5 mg PO BID #60 tab 05/29/18 [Rx Confirmed 06/18/18] Metoprolol(XL)Succ [Toprol Xl (Beta Daniel)] 25 mg PO BID #60 tab 05/29/18 [Rx Confirmed 06/18/18] simvastatin 20 mg tablet 20 mg PO QHS #90 tab 05/31/18 [Rx Confirmed 06/18/18] albuterol sulfate HFA 90 mcg/actuation aerosol inhaler 1 puff INHALATION Q6H PRN #8.5 g 06/07/18 [Rx Confirmed 06/18/18] furosemide 40 mg tablet 40 mg PO DAILY #90 tab 06/07/18 [Rx Confirmed 06/18/18] guaifenesin ER 1,200 mg tablet, extended release 12 hr 1,200 mg PO Q12H #90 tab 06/14/18 [Rx Confirmed 06/18/18] umeclidinium 62.5 mcg-vilanterol 25 mcg/actuation powdr for inhalation 1 inh INHALATION Q24H #1 device 06/18/18 [Rx Confirmed 06/18/18] [facility] Medical History Atrial fibrillation (Acute) Shortness of breath (Chronic) Acute on chronic diastolic CHF (congestive heart failure) (Acute) Anemia (Chronic) Thrombocytopenia (Chronic) Pain on swallowing (Acute) Premature atrial contractions (Acute) MDS (myelodysplastic syndrome), low grade (Chronic) Hypotension (Acute) Paroxysmal atrial tachycardia (Acute) Paroxysmal ventricular tachycardia (Acute) Premature ventricular contraction (Acute) Palpitations (Acute) HTN (hypertension) (Chronic) Hyperlipidemia (Chronic) Hypertension (Chronic) Hyperlipemia (Chronic) Type 2 diabetes mellitus (Chronic) COPD (chronic obstructive pulmonary disease) (Chronic) Bilateral hip pain (Acute) Contusion of right knee (Acute) Inguinal hernia (Acute) Low back pain (Acute) Prepatellar bursitis, right knee (Acute) Thrombocytopenia (Acute) heart catheterization (Acute) Arthritis (Chronic) BPH (benign prostatic hyperplasia) (Chronic) BPH (benign prostatic hyperplasia) (Chronic) MDS (myelodysplastic syndrome), low grade (Chronic) Surgical History H/O hernia repair (Chronic) 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) History of hand surgery (Resolved) Family History Mother Cancer, Onset Age: 59 Pancreatic Father Cancer, Onset Age: 44 Intestinal Brother Cancer, Onset Age: 78 Son CVA (cerebral vascular accident) Diabetes Mother Cancer Social History household members: none housing: house current occupational status: retired pets and animals: No Smoking Status: Former smoker quit date: 08/17/80 pack-years: 26 how long ago did patient quit smokin second hand exposure: No alcohol intake: never substance use type: does not use what type of physical activity do you participate in: none Review of Systems Const CONSTITUTIONAL: Positive fatigue; negative anorexia, body ache, chills, daytime sleepiness, fever(s), night sweats, oral thrush, stops breathing during sleep, weight loss, sleeping in chair, weight loss, weight gain, frequent colds, seasonal allergies, other, headache(s) or orthopnea EETM Ear Nose Throat Mouth: Positive hearing normal; negative hard of hearing, hoarseness, dry mouth in morning, change in vision, itchy eyes, eye pain, swallowing Difficulty, ear pain, nose bleed, headache(s), mouth pain, nasal congestion, nasal discharge, post nasal drip, sinus pain, sinus pressure, sore throat or other Cardio Cardiovascular: Negative chest pain, chest pain at rest, chest pain with activity, irregular heart rhythm, edema, shortness of breath when lying down, palpitations, murmur or other Resp Respiratory: Positive as per HPI and shortness of breath shortness of breath: Positive with activity and worsening; negative pain with cough, wheezing, chest congestion, cough, chest tightness, pain on inspiration, inhalers, increase use of rescue inhalers, snoring, apnea or other Gastro Gastrointestional: Negative bloody stools, change in appetite, difficulty swallowing, reflux, hematemesis, melena stool, loose stool, constipation or other Genitourinary: Negative blood in urine, nocturia, pain with urination or other Musc Musculoskeletal: Negative body pain, back pain, neck pain or other Skin/Breast Skin/Breast: Negative dry skin, itching, rash, unusual bruising, breast lump or other Neuro Neurological: Negative restless legs, confusion, weakness or other Psych Psychocological: Negative abnormal sleep pattern, anxiety, thoughts of hurting self/others, hopelessness or other Lymph Lymphatic: Negative easy bleeding, easy bruising, swollen lymph nodes or other Exam Const Constitutional: Positive conversant, cooperative, in no acute respiratory distress, well developed, well nourished, good hygiene and wearing supplemental oxygen Head Head: Positive normocephalic and atraumatic; negative cyanosis of lips/distal nose Eyes Eye: Positive clear conjunctiva; negative nystagmus or scleral abnormality Ears Ear: Positive hearing normal and external ears normal; negative hard of hearing Nose Nose: Positive external nose normal; negative epistaxis Mouth Mouth: Positive oral mucosae normal and posterior oropharynx is adequate; negative no lesions or post nasal drip Mallampati Score: II: Mallampati Score Neck Neck: Positive normal visual inspection and trachea midline; negative lymphadenopathy Chest Wall Chest: Positive symmetric chest movement Normal AP diameter. Resp lung sounds: Positive rales (Mild basilar rales), diminished and normal expiratory time; negative wheezes or rhonchi Cardio Cardiac: Positive regular rate, regular rhythm, S1 normal and S2 normal; negative rub, gallop or murmur GI GI: Positive normal bowel sounds Soft without distention Genitourinary: Positive deferred Musc Musculoskeletal: Positive steady gait Skin Pulmonary Skin Exam: Positive intact; negative lesion, ulcers, dermal atrophy or rash Pulses Pulse: Yes Pedal pulses present: Extremities Extremities: No clubbing, No cyanosis, Yes edema (Bilateral lower extremity pitting edema present) Neuro Neurologic: Yes conversant, Yes no focal neuro deficits, Yes cooperative Lymph Lymphatic: No lymphadenopathy Psych Appearance: Positive grossly normal Mental Status: Positive mental status grossly normal Mood: Positive congruent mood Affect: Positive normal affect Office Procedures Walking Oximetry Walking Oximetry Procedure performed by: Sary Camejo Walking Oximetry: Yes walking oximetry preformed, see nurisng documentation, desaturation below 89% occured, lowest saturation (84% RA Resting ), oxygen applied (2L), no signs of distress prior to departing office and supplemental oxygen order generated Coding Level of Care Code Off vis,est,level 4 Diagnoses Mixed obstructive and restrictive ventilatory defect Pulmonary hypertension I27.[address] R93.89 Heart failure with preserved ejection fraction I50.30 Hypersomnia G47.10 Time Spent (min) 60 06/18/18 0949 <Electronically signed by Jasmeet Connolly DO> Date Jasmeet Connolly DO Cosigner Signature: Date (if applicable) CC: Roc Martinez MD CBC W/DIFF, AUTOMATED Collected: 06/17/2018 Status: F Source: [facility] 1:19 PM [facility] REPOSITORY Order Comment: Reason for Laboratory Test . TYPE CODE TESTS RESULT OUT OF RANGE REFERENCE UNITS LAB L100.1000 4.4-11.0 K/mm3 Normal WBC 4.9 LAB L100.1200 4.6-6.2 M/mm3 Low RBC 3.26 LAB L100.1300 13.0-16.5 g/dl Low HGB 9.1 LAB L100.1400 40-54 % Low HCT 28.6 LAB L100.1500 80-94 fL Normal MCV 87.7 LAB L100.1600 27.0-32.0 pg Normal MCH 27.9 LAB L100.1700 32-36 g/gl Low MCHC 31.8 LAB L100.1810 11.6-14.6 % High RDW CV 23.4 LAB L100.1820 35.1-43.9 fl High RDW SD 68.2 LAB L100.1900 150-450 K/mm3 Low PLT 80 LAB L100.2100 47-70 % High NEUT% 73.9 LAB L100.2200 19-41 % Low LY% 13.9 LAB L100.2300 0-10 % High MONO% 10.2 LAB L100.2400 0-5 % Normal EO% 1.0 LAB L100.2500 0-1 % Normal BASO% 0.4 LAB L100.2550 0.0-0.9 % Normal IM GRAN % 0.600 Result Comment: IG% - Immature Granulocytes (promyelocytes, myelocytes and metamyelocytes) > 1% indicates that a LEFT SHIFT is Present. LAB L100.2620 2.0-7.7 X10 3/uL Absolute Normal Neut 3.6 LAB L100.2720 0.83-4.51 X10 3/ul Low Absolute Lymph 0.68 LAB L100.4500 SMEAR Normal COMMENT SCANNED LAB L100.5650 PLT MORPH Normal LARGE LAB L100.7300 ANISO Normal 2+ LAB L100.7400 POIK Normal 1+ LAB L100.7700 MICROCYTES Normal 1+ LAB L100.7800 MACROCYTE Normal 1+ LAB L100.8000 ACANTHOCYTE Normal 1+ Performed By: #### L100.0100 #### [facility] [address] [place], [place], [id number] COMPREHENSIVE METABOLIC Collected: 06/17/2018 Status: F [facility] 1:19 PM [facility] REPOSITORY Order Comment: Reason for Laboratory Test . TYPE CODE TESTS RESULT OUT OF RANGE REFERENCE UNITS LAB L501.0100 74-106 mg/dL High GLU 186 Result Comment: Fasting Glucose result greater than or equal to 126 mg/dL suggests DIABETES MELLITUS per A.D.A. criteria. Please note revised GLUCOSE reference range effective 2017. LAB L501.1000 7-18 mg/dL High BUN 37 LAB L501.1100 0.70-1.30 mg/dL High CREAT,SERUM 2.55 Result Comment: The validity of the calculated GFR AND GFRAA in patients over 70 years has not been determined. Clinical correlation is essential. LAB L501.1110 >60 mL/min Low EST GFR 26 Result Comment: Non- GFR Calc LAB L501.1115 >60 mL/min Low EST GFR - AA 31 Result Comment: GFR Calc LAB L501.1255 ml/min Normal Estimated CRCL 23.46 LAB L501.1300 10-20 RATIO Normal BUN/CRE 14.5 LAB L501.1500 6.4-8. g/dL Normal 2 T PROT 7.1 LAB L501.1800 3.2-5. g/dL Normal 0 ALB 3.6 LAB L501.1950 2.2-4. g/dL Normal 2 GLOB 3.5 LAB L501.2000 0.9-2. RATIO Normal 4 A/G 1.0 LAB L501.2200 8.5-10 mg/dL Low .1 CA 8.3 LAB L501.4100 15-37 U/L Normal AST 20 LAB L501.4305 45-117 U/L Normal ALK P 74 LAB L501.4405 16-61 U/L Normal ALT 26 LAB L501.4600 0.20-1 mg/dL Normal .00 T BILI 1.00 LAB L501.5300 136-14 mmol/L Normal 5 NA 138 LAB L501.5600 3.5-5. mmol/L Normal 1 K 4.4 LAB L501.5900 98-107 mmol/L Normal CL 102 LAB L501.6100 21.0-3 mmol/L Normal 2.0 CO2 29.0 LAB L501.6200 5-15 Normal GAP 7 Performed By: #### L500.4050 #### [facility] [address] [place], [place], [id number] INTERNAL MEDICINE Observed: 06/14/2018 Status: F Source: [facility] OFFICE VISIT 4:31 PM [facility] [address] [place] [address] [place] [address] OFFICE VISIT Date of Service: 06/14/18 MR#: [id number] Acct: [id number] Name: ANGEL BRIGGS Rep #: [id number] : 1935 Provider: Roc Martinez MD Age/Sex: 82/M Location: [facility] Status: Signed Intake Vital Signs06/14/18 Height 5 ft 10 in Intake Visit Reasons: 1 WK FU Chief Complaint: Follow-up shortness of breath and hypotension. Is patient in pain?: No Allergies codeine Adverse Reaction (Severe, Verified 06/08/18 13:41) Unknown Medications Metformin HCl [Glucophage] 1,000 mg PO DAILY 05/26/18 [History Confirmed 06/08/18] Tamsulosin HCl [Flomax] 0.4 mg PO DAILY 05/26/18 [History Confirmed 06/08/18] Tiotropium [place] [Spiriva] 1 cap INHALATION DAILY 05/26/18 [History Confirmed 06/08/18] Amiodarone HCl [Cordarone] 200 mg PO TID #90 tab 05/29/18 [Rx Confirmed 06/08/18] Apixaban [Eliquis] 2.5 mg PO BID #60 tab 05/29/18 [Rx Confirmed 06/08/18] Metoprolol(XL)Succ [Toprol Xl (Beta Daniel)] 25 mg PO BID #60 tab 05/29/18 [Rx Confirmed 06/08/18] simvastatin 20 mg tablet 20 mg PO QHS #90 tab 05/31/18 [Rx Confirmed 06/08/18] albuterol sulfate HFA 90 mcg/actuation aerosol inhaler 1 puff INHALATION Q6H PRN #8.5 g 06/07/18 [Rx Confirmed 06/08/18] furosemide 20 mg tablet 20 mg PO DAILY #90 tab 06/07/18 [Rx Confirmed 06/08/18] furosemide 40 mg tablet 40 mg PO DAILY #90 tab 06/07/18 [Rx Confirmed 06/08/18] guaifenesin ER 1,200 mg tablet, extended release 12 hr 1,200 mg PO Q12H #90 tab 06/14/18 [Rx Confirmed 06/14/18] mometasone 100 mcg/actuation HFA aerosol inhaler 1 puff INHALATION BID 06/14/18 [History Confirmed 06/14/18] [facility] Medical History Atrial fibrillation (Acute) Shortness of breath (Chronic) Acute on chronic diastolic CHF (congestive heart failure) (Acute) Anemia (Chronic) Thrombocytopenia (Chronic) Pain on swallowing (Acute) Premature atrial contractions (Acute) MDS (myelodysplastic syndrome), low grade (Chronic) Hypotension (Acute) Paroxysmal atrial tachycardia (Acute) Paroxysmal ventricular tachycardia (Acute) Premature ventricular contraction (Acute) Palpitations (Acute) HTN (hypertension) (Chronic) Hyperlipidemia (Chronic) Hypertension (Chronic) Hyperlipemia (Chronic) Type 2 diabetes mellitus (Chronic) COPD (chronic obstructive pulmonary disease) (Chronic) Bilateral hip pain (Acute) Contusion of right knee (Acute) Inguinal hernia (Acute) Low back pain (Acute) Prepatellar bursitis, right knee (Acute) Thrombocytopenia (Acute) heart catheterization (Acute) Arthritis (Chronic) BPH (benign prostatic hyperplasia) (Chronic) BPH (benign prostatic hyperplasia) (Chronic) MDS (myelodysplastic syndrome), low grade (Chronic) Surgical History H/O hernia repair (Chronic) 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) History of hand surgery (Resolved) Family History Mother Cancer, Onset Age: 59 Pancreatic Father Cancer, Onset Age: 44 Intestinal Brother Cancer, Onset Age: 78 Son CVA (cerebral vascular accident) Diabetes Mother Cancer Social History household members: none housing: house current occupational status: retired pets and animals: No Smoking Status: Former smoker quit date: 08/17/80 pack-years: 26 how long ago did patient quit smokin second hand exposure: No alcohol intake: never substance use type: does not use what type of physical activity do you participate in: none HPI HPI Chief Complaint: Follow-up shortness of breath and hypotension. Details: ANGEL BRIGGS, is a 82yo M who presents to the office today for follow-up. He was seen here a week ago and had adjustments to his Lasix due to increased shortness of breath and lower extremity swelling. Symptoms have for the most part remains stable. Shortness of breath still persist however there has been no worsening and also no worsening lower extremity swelling. He had a prior appointment with Dr. Connolly today however this was canceled by patient. Now scheduled to follow-up with him on Thursday. ROS Const Constitutional: No body ache, chills, fatigue, sleep problems, fever(s), change in appetite, snoring, weakness, frequent falls, headache(s) or excessive sweating Eyes Eyes: No change in vision, eye pain, light sensitivity or blurry vision ENT ENT: No headache(s), abnormal hearing, ear pain, tinnitus, nasal congestion, sore throat or neck pain Resp Respiratory: Positive for shortness of breath; no snoring, cough or wheezing Cardio Cardiology: No excessive sweating, chest pain with exertion, shortness of breath, dyspnea on exertion, palpitations, orthopnea or lightheadedness Gastro GI: No abdominal pain, change in bowel habits, constipation, diarrhea, vomiting, nausea/dyspepsia or cramping Genitourinary Male: No painful urination, urinary incontinence, urinary frequency, urinary urgency, blood in urine, testicle pain or other Musc Musculoskeletal: No neck pain, abnormal walking, joint pain, back pain, limited range of motion, numbness, tingling or muscle weakness Skin Skin: No redness, dry skin, itching, lesions, wounds or rash Neuro Neurology: No weakness, frequent falls, headache(s), abnormal hearing, abnormal walking, numbness, tingling, abnormal speech or memory loss Psych Psychiatric: No change in appetite, No memory loss, No anxiety, No depression, No Thoughts of harming yourself/Others Endo Endocrine: No fatigue, excessive sweating, cold intolerance, increased thirst/drinking, heat intolerance, flushing or increased hunger Aller/Imm Allergy/Immunologic: No wheezing, itchy eyes, hives or seasonal allergy symptoms Blade/Lymp Hematologic/Lymphatic: No easy bleeding, easy bruising or enlarged lymph nodes Exam Const General: cooperative, no acute distress Orientation: alert, awake, oriented x3 HENMT Head: atraumatic, normocephalic Ears: hearing grossly normal bilaterally Resp Effort AND Inspection: normal respiratory effort, able to speak in complete sentences Auscultation: Bilateral: Clear to Auscultation, Diminished Base Cardio Rate: regular rate Rhythm: regular rhythm Heart Sounds: S1 normal, S2 normal GI Palpation: soft, no hepatosplenomegaly Musc Musculoskeletal: No muscle weakness Neuro General: alert, awake, oriented x3, moves all extremities, CN's II-XI intact bilaterally Extrem General: pedal edema Psych Appearance: grossly normal Mental Status: mental status grossly normal Mood: congruent mood Affect: normal affect Assessment AND Plan 1. Shortness of breath R06.02 Plan Persistent. No worsening. Lower extremity edema also stable. Continue 40 mg of Lasix in a.m. and another 20 at noon. Another appointment made with Dr. Connolly Thursday after patient previously canceled today's appointment. He states that he followed up with another vat packer at [place] due to his ongoing concerns. Plan per patient was for another CAT scan and repeat testing however, I encouraged patient to reschedule with Dr. Connolly instead of starting all over with another vat packer. He is open to this. Advised to call the office with any further questions or concerns. 2. Hypotension I95.9 Plan Stable. No significant drop in blood pressure with increase in Lasix. Continue current management. 3. Atrial fibrillation I48.91 Plan Now in normal sinus rhythm. Rate and rhythm controlled. Continue current management. This note was generated with [email or web address] dictation software. It may contain incorrect words, spelling, and punctuation that were not noted in checking the note before signing. Plan Detail Other Medications New: Coding Level of Care Code Off vis,est,level 3 Diagnoses Shortness of breath R06.02 Hypotension I95.9 Atrial fibrillation I48.91 06/14/18 1631 <Electronically signed by Roc Martinez MD> Date Roc Martinez MD Cosigner Signature: Date (if applicable) CC: INTERNAL MEDICINE Observed: 06/14/2018 Status: F Source: [facility] OFFICE VISIT 1:10 PM [facility] [address] [place] [address] [place] [address] OFFICE VISIT Date of Service: 06/07/18 MR#: [id number] Acct: [id number] Name: ANGEL BRIGGS Rep #: [id number] : 1935 Provider: Roc Martinez MD Age/Sex: 82/M Location: [facility] Status: Signed Intake Vital Signs06/07/18 Height 5 ft 10 in 06/07/18 Weight: 235 lb 06/07/18 Body Mass Index (BMI) 33.7 06/07/18 Blood Pressure 102/53 L 06/07/18 Blood Pressure Location Lt brachial Intake Visit Reasons: REVIEW MEDS Chief Complaint: Follow-up shortness of breath and hypotension. Is patient in pain?: No Allergies codeine Adverse Reaction (Severe, Verified 06/07/18 08:56) Unknown Medications Guaifenesin [Guaifenesin ER] 1,200 mg PO Q12H 05/26/18 [History Confirmed 06/07/18] Metformin HCl [Glucophage] 1,000 mg PO DAILY 05/26/18 [History Confirmed 06/07/18] Tamsulosin HCl [Flomax] 0.4 mg PO DAILY 05/26/18 [History Confirmed 06/07/18] Tiotropium [place] [Spiriva] 1 cap INHALATION DAILY 05/26/18 [History Confirmed 06/07/18] Amiodarone HCl [Cordarone] 200 mg PO TID #90 tab 05/29/18 [Rx Confirmed 06/07/18] Apixaban [Eliquis] 2.5 mg PO BID #60 tab 05/29/18 [Rx Confirmed 06/07/18] Metoprolol(XL)Succ [Toprol Xl (Beta Daniel)] 25 mg PO BID #60 tab 05/29/18 [Rx Confirmed 06/07/18] simvastatin 20 mg tablet 20 mg PO QHS #90 tab 05/31/18 [Rx Confirmed 06/07/18] albuterol sulfate HFA 90 mcg/actuation aerosol inhaler 1 puff INHALATION Q6H PRN #8.5 g 06/07/18 [Rx Confirmed 06/07/18] furosemide 20 mg tablet 20 mg PO DAILY #90 tab 06/07/18 [Rx Confirmed 06/07/18] furosemide 40 mg tablet 40 mg PO DAILY #90 tab 06/07/18 [Rx Confirmed 06/07/18] [facility] Medical History Atrial fibrillation (Acute) Shortness of breath (Chronic) Acute on chronic diastolic CHF (congestive heart failure) (Acute) Anemia (Chronic) Thrombocytopenia (Chronic) Pain on swallowing (Acute) Premature atrial contractions (Acute) MDS (myelodysplastic syndrome), low grade (Chronic) Hypotension (Acute) Paroxysmal atrial tachycardia (Acute) Paroxysmal ventricular tachycardia (Acute) Premature ventricular contraction (Acute) Palpitations (Acute) HTN (hypertension) (Chronic) Hyperlipidemia (Chronic) Hypertension (Chronic) Hyperlipemia (Chronic) Type 2 diabetes mellitus (Chronic) COPD (chronic obstructive pulmonary disease) (Chronic) Bilateral hip pain (Acute) Contusion of right knee (Acute) Inguinal hernia (Acute) Low back pain (Acute) Prepatellar bursitis, right knee (Acute) Thrombocytopenia (Acute) heart catheterization (Acute) Arthritis (Chronic) BPH (benign prostatic hyperplasia) (Chronic) BPH (benign prostatic hyperplasia) (Chronic) MDS (myelodysplastic syndrome), low grade (Chronic) Surgical History H/O hernia repair (Chronic) 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) History of hand surgery (Resolved) Family History Mother Cancer, Onset Age: 59 Pancreatic Father Cancer, Onset Age: 44 Intestinal Brother Cancer, Onset Age: 78 Son CVA (cerebral vascular accident) Diabetes Mother Cancer Social History household members: none housing: house current occupational status: retired pets and animals: No Smoking Status: Former smoker quit date: 08/17/80 pack-years: 26 how long ago did patient quit smokin second hand exposure: No alcohol intake: never substance use type: does not use what type of physical activity do you participate in: none HPI HPI Chief Complaint: Follow-up shortness of breath and hypotension. Details: ANGEL BRIGGS, is a 82yo M who presents to the office today for follow-up. He was seen here about a week ago for significant hypertension and worsening shortness of breath. His lisinopril was discontinued at that visit. Blood pressure has remained stable around 100 mmHg systolic. He however continues to note increased bilateral lower extremity swelling and worsening shortness of breath on laying down. He also did follow-up with pulmonary. He has since had a 6-minute walk test and pulmonary function test. Plan is for follow-up with Dr. Connolly in July however patient still reports significant shortness of breath with minimal activity. ROS Const Constitutional: No chills, fatigue, fever(s), frequent falls, malaise, weakness, sleep problems or change in appetite Eyes Eyes: No blurry vision, change in vision, double vision, discharge or visual disturbances ENT ENT: No abnormal hearing, ear pain, ear pressure, tinnitus or dizziness/vertigo Resp Respiratory: Positive for shortness of breath and excessive phlegm production; no cough or wheezing Cardio Cardiology: Positive for dyspnea on exertion; no chest pain at rest, chest pain with exertion, shortness of breath, irregular heart rhythm, lightheadedness, orthopnea, fast heart rate or palpitations Gastro GI: No abdominal pain, change in bowel habits, constipation, diarrhea, nausea/dyspepsia or vomiting Genitourinary Male: No difficulty urinating, burning urination, painful urination, urinary incontinence, urinary frequency, urinary urgency, urinary hesitancy, urinary retention, blood in urine, Frequent nighttime urination/ nocturia, sexual problems, testicle lump or testicle pain Musc Musculoskeletal: No joint pain, back pain, limited range of motion, numbness, tingling or muscle weakness Skin Skin: No change in skin color, itching, rash or wounds Breast Breast: No breast lump or breast pain Neuro Neurology: No frequent falls, weakness, abnormal hearing, numbness, tingling, unsteady gait/balance, dizziness, loss of vision, memory loss or visual disturbances Psych Psychiatric: No memory loss, No anxiety, No change in appetite, No depression, No Thoughts of harming yourself/Others Endo Endocrine: No fatigue, heat intolerance, increased thirst/drinking, increased hunger or increased urination Aller/Imm Allergy/Immunologic: No wheezing, itchy eyes or seasonal allergy symptoms Blade/Lymp Hematologic/Lymphatic: No easy bleeding, easy bruising or enlarged lymph nodes Exam Const General: cooperative, no acute distress Orientation: alert, awake, oriented x3 HENGA Head: atraumatic, normocephalic Ears: hearing grossly normal bilaterally Resp Effort AND Inspection: normal respiratory effort, able to speak in complete sentences Auscultation: Bilateral: Clear to Auscultation, Diminished Base Cardio Rate: regular rate Heart Sounds: S1 normal, S2 normal GI Palpation: soft, no hepatosplenomegaly Musc Musculoskeletal: No muscle weakness Neuro General: alert, awake, oriented x3, moves all extremities, CN's II-XI intact bilaterally Extrem General: pedal edema Psych Appearance: grossly normal Mental Status: mental status grossly normal Mood: congruent mood Affect: normal affect Assessment AND Plan 1. Shortness of breath R06.02 Plan Persisting. None at rest but said to be profound with minimal activity. This has significantly impacted his daily activities. Currently following up with Pulmo and recently had a 6 minute walk test and PFT done. Scheduled for a follow up visit soon. Also appears to have worsening bilateral lower extremity edema and worsening shortness of breath on laying down. This is likely due to his severe pulmonary hypertension and pulmonary vasoconstriction. Will increase Lasix and monitor blood pressure closely. I however do not anticipate very significant improvement with diuretic therapy alone. Patient will most likely benefit most from supplemental 02. This was discussed with his vat packer. Advised to call the office with any further concerns. Otherwise follow-up in 1 week 2. Acute on chronic diastolic CHF (congestive heart failure) I50.33 Plan Was diuresed during his hospital stay however, now appears to have worsening lower extremity swelling and orthopnea. Increase Lasix. Continue 40 mg in the morning and another 20 mg about noon. Continue to monitor blood pressure closely. If blood pressure drops really low, will consider midodrine. 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 However, he will most definitely benefit from Oxygen due to symptomatic pulmonary hypertension. Advised to call the office tomorrow. 3. Hypotension I95.9 Plan Resolved. Blood pressure now 100/53mmHg. Lasix management as above. Plan Detail Other Medications New: Refilled: albuterol sulfate HFA 90 mcg/actuation (Vento1 puff Inhalation Q6H PRN 8.5 grams 2RF shor mauricio HFA) tness of breath or wheezing Discontinued: Coding Level of Care Code Off vis,est,level 4 Diagnoses Shortness of breath R06.02 Acute on chronic diastolic CHF (congestive heart failure) I50.33 Hypotension I95.9 06/14/18 1310 <Electronically signed by Roc Martinez MD> Date Roc Martinez MD Cosigner Signature: Date (if applicable) CC: ORTHOPEDIC VISIT Observed: 06/13/2018 Status: F Source: [facility] REPORT 1:53 PM [facility] [place] REPOSITORY [facility] Orthopaedics AND Sports Medicine [address] [place] [id number] OFFICE VISIT Date of Service: 06/08/18 MR#: [id number] Acct: [id number] Name: ANGEL BRIGGS Rep #: [id number] : 1935 Provider: Ursula Duff MD Age/Sex: 82/M Location: [facility] [place] Status: Signed Intake Intake Visit Reasons: LOW BACK PAIN Is patient in pain?: Yes Pain scale (1-10): 5 Allergies codeine Adverse Reaction (Severe, Verified 06/08/18 13:41) Unknown Medications Guaifenesin [Guaifenesin ER] 1,200 mg PO Q12H 05/26/18 [History Confirmed 06/08/18] Metformin HCl [Glucophage] 1,000 mg PO DAILY 05/26/18 [History Confirmed 06/08/18] Tamsulosin HCl [Flomax] 0.4 mg PO DAILY 05/26/18 [History Confirmed 06/08/18] Tiotropium [place] [Spiriva] 1 cap INHALATION DAILY 05/26/18 [History Confirmed 06/08/18] Amiodarone HCl [Cordarone] 200 mg PO TID #90 tab 05/29/18 [Rx Confirmed 06/08/18] Apixaban [Eliquis] 2.5 mg PO BID #60 tab 05/29/18 [Rx Confirmed 06/08/18] Metoprolol(XL)Succ [Toprol Xl (Beta Daniel)] 25 mg PO BID #60 tab 05/29/18 [Rx Confirmed 06/08/18] simvastatin 20 mg tablet 20 mg PO QHS #90 tab 05/31/18 [Rx Confirmed 06/08/18] albuterol sulfate HFA 90 mcg/actuation aerosol inhaler 1 puff INHALATION Q6H PRN #8.5 g 06/07/18 [Rx Confirmed 06/08/18] furosemide 20 mg tablet 20 mg PO DAILY #90 tab 06/07/18 [Rx Confirmed 06/08/18] furosemide 40 mg tablet 40 mg PO DAILY #90 tab 06/07/18 [Rx Confirmed 06/08/18] PFSH Medical History Atrial fibrillation (Acute) Shortness of breath (Chronic) Acute on chronic diastolic CHF (congestive heart failure) (Acute) Anemia (Chronic) Thrombocytopenia (Chronic) Pain on swallowing (Acute) Premature atrial contractions (Acute) MDS (myelodysplastic syndrome), low grade (Chronic) Hypotension (Acute) Paroxysmal atrial tachycardia (Acute) Paroxysmal ventricular tachycardia (Acute) Premature ventricular contraction (Acute) Palpitations (Acute) HTN (hypertension) (Chronic) Hyperlipidemia (Chronic) Hypertension (Chronic) Hyperlipemia (Chronic) Type 2 diabetes mellitus (Chronic) COPD (chronic obstructive pulmonary disease) (Chronic) Bilateral hip pain (Acute) Contusion of right knee (Acute) Inguinal hernia (Acute) Low back pain (Acute) Prepatellar bursitis, right knee (Acute) Thrombocytopenia (Acute) heart catheterization (Acute) Arthritis (Chronic) BPH (benign prostatic hyperplasia) (Chronic) BPH (benign prostatic hyperplasia) (Chronic) MDS (myelodysplastic syndrome), low grade (Chronic) Surgical History H/O hernia repair (Chronic) 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) History of hand surgery (Resolved) Family History Mother Cancer, Onset Age: 59 Pancreatic Father Cancer, Onset Age: 44 Intestinal Brother Cancer, Onset Age: 78 Son CVA (cerebral vascular accident) Diabetes Mother Cancer Social History household members: none housing: house current occupational status: retired pets and animals: No Smoking Status: Former smoker quit date: 08/17/80 pack-years: 26 how long ago did patient quit smokin second hand exposure: No alcohol intake: never substance use type: does not use what type of physical activity do you participate in: none HPI LOW BACK PAIN: Details: ANGEL BRIGGS is a 82 year old RHD M here today for low back pain, referred by Dr Martinze. Patient notes that he has had back pain for a few months with no known injury. He states that his pain is not bad currently but when it is bad, he has achiness into his back and has to sit down which relieves his pain. Patient denies any radiating pain, numbness or tingling. He has 80% back pain and 20% bilateral leg fatigue with standing over 20-30 minutes. He takes tylenol PRN. He had physical therapy 3 months ago and a tens unit helped. He also saw a chiropractor which was not helpful. He denies any injections. He denies bowel or bladder issues, gait instability or loss of hand dexterity. He states that he has heart and lung issues and currently has bilateral leg swelling. He is working with his PCP. He has a history of a heart arrythmia and is on eliquis. He has HTN and hypercholesterolemia. He is retired. He does not smoke. ROS Const Reports system reviewed and no additional complaints, except as docu Eyes Reports system reviewed and no additional complaints, except as docu ENT Reports system reviewed and no additional complaints, except as docu Card Reports system reviewed and no additional complaints, except as docu Resp Reports system reviewed and no additional complaints, except as docu GI Reports system reviewed and no additional complaints, except as docu Reports system reviewed and no additional complaints, except as docu Musc Reports back pain Skin/Breast Reports system reviewed and no additional complaints, except as docu Neuro Yes system reviewed and no additional complaints, except as docu Psych Reports system reviewed and no additional complaints, except as docu Endo Reports system reviewed and no additional complaints, except as docu Ortho Exam Spine Neuro: Yes Babinski (downgoing bilaterally), Brito's (negative bilaterally), Clonus (none bilaterally) and Straight Leg Raise (negative bilaterally) General: alert, oriented x3 Skin: Yes dysraphism (none) Capillary Refill <2sec: Yes Palpable Pulses: 2+ dp/pt pulses Gait: normal gait, other (able to heel and toe walk) Motor: strength 5/5 throughout Sensory Exam: no sensory deficits noted DTR's: Rt Triceps: 2+, Lt Triceps: 2+, Rt Biceps: 2+, Lt Biceps: 2+, Rt Brachioradialis: 2+, Lt Brachioradialis: 2+, Rt Patellar: 2+, Lt Patellar: 2+, Rt Ankle: 2+, Lt Ankle: 2+ Plantar Reflexes: Downgoing: bilateral Coordination: tandem gait normal, Romberg test normal Details: patient is short of breath with ambulation in the room SPINE TESTING CERVICAL THORACIC LUMBAR SLR: Negative Musculoskeletal General: Yes normal gait and normal posture Cervical Spine: cervical ROM normal Thoracic/Lumbar Spine: paraspinal tenderness, straight leg raise negative bilaterally, thoraco-lumbar ROM normal Strength 0=absent - 5=normal Deltoid R (C5): 5, Deltoid L (C5): 5, R Bicep (C5-6): 5, L Bicep (C5-6): 5, R Wrist Extensor (C6): 5, L Wrist Extensor (C6): 5, R Tricep (C7): 5, L Tricep (C7): 5, R Finger Flexors (C8): 5, L Finger Flexors (C8): 5, R First Dorsal Interossei (C8): 5, L First Dorsal Interossei (C8): 5, R Hip Flexor (L1-3): 5, L Hip Flexor (L1-3): 5, R Quadriceps (L2-4): 5, L Quadriceps (L2-4): 5, R Anterior Tibialis (L4-5): 5, L Anterior Tibialis (L4- 5): 5, R Hamstrings (L5-S1): 5, L Hamstrings (L5-S1): 5, GS (S1): 5, L GS (S1): 5, R Peroneals (S1): 5, L Peroneals (S1): 5 Assessment AND Plan Problems 1. Chronic bilateral low back pain without sciatica M54.5; G89.29 Plan Imaging: XR lumbar spine 06/08/2018 reveals diffuse spondylosis. Prior left JESSICA MRI lumbar spine 03/25/2018 reveals diffuse spondylosis with L3-4 spinal stenosis and bilateral L4-5 lateral recess stenosis I/R/P: 1. back pain, improving 2. bilateral leg fatigue 3. shortness of breath, active issue 4. 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 Briggs presents with back pain that is improving and bilateral leg fatigue in the setting of lumbar spinal stenosis. The natural history and course of the symptomatology of spinal stenosis was discussed in detail with the patient. I answered all questions regarding the mode of onset, pathophysiology, symptoms, imaging findings, treatment options (both non-operative and operative) regarding his diagnosis. The patient currently has other active comorbidities that he is still undergoing work up. At this time, the patient is not interested in surgical intervention and would like his other medical issues stabilized. Provided prescription for physical therapy. Follow up with he would like to reconsider surgery. Plan of care discussed. All questions answered. The patient verbalized understanding of the disease process and agreed to the treatment plan formulated for this visit. Orders Orders: Coding Level of Care Code Off vis,new,level 4 Diagnoses Chronic bilateral low back pain without sciatica M54.5; G89.29 Back pain location: low back pain Chronicity: chronic Back pain laterality: bilateral Sciatica presence: without sciatica 06/13/18 1353 <Electronically signed by Ursula Duff MD> Date Ursula Duff MD Cosigner Signature: Date (if applicable) CC: Roc Martinez MD HEMOGRAM/DIFF Collected: 06/09/2018 Status: F Source: [facility] 2:58 PM HEALTH SYSTEM REPOSITORY TYPE CODE TESTS RESULT OUT OF REFERENCE UNITS RANGE LAB PLTM(LOIN C) Platelet Morphology Bizarre forms LAB ANISO(SHASHA NC) Anisocytosis Moderate LAB BOY(LOIN C) Dover Cells Moderate LAB ELLIP(SHASHA NC) Elliptocytosis Few LAB MACRO(SHASHA NC) Macrocytosis Few LAB POLY(LOIN C) Polychromasia Few LAB SCHST(SHASHA NC) Schistocytosis Moderate LAB WBC(LOINC 4.23-9.07 thou/cmm ) WBC 5.54 LAB RBC(LOINC 4.63-6.08 mil/cmm ) RBC Low 3.37 LAB HGB(LOINC 13.7-17.5 g/dL ) Hgb Low 9.6 LAB HCT(LOINC 40.1-51.0 % ) Hct Low 30.3 LAB MCV(LOINC 83.2-95.6 fl ) MCV 89.9 LAB MCH(LOINC 25.7-32.2 pg ) MCH 28.5 LAB MCHC(LOIN 32.3-36.5 % C) MCHC Low 31.7 LAB RDW(LOINC 11.6-14.4 % ) RDW High 23.3 LAB RDWSD(SHASHA 36.1-45.8 fl NC) RDW SD High 68.4 LAB PLT(LOINC 141-365 thou/cmm ) Platelet Low 97 LAB SEG(LOINC % ) Seg Neutrophil 67.6 LAB IGRE(LOIN % C) Immature Grans 1.10 LAB LYMPH(SHASHA % NC) Lymphocyte 19.1 LAB MNO(LOINC % ) Monocyte 10.6 LAB EOSIN(SHASHA % NC) Eosinophil 1.1 LAB BASO(LOIN % C) Basophil 0.5 LAB SEGN(LOIN 1.78-5.38 thou/cmm C) Abs. Neut (ANC) 3.75 LAB IGAB(LOIN 0.00-0.05 thou/cmm C) Abs Immature High Grans 0.06 Result Comment: Smear scanned tech agrees with platelet count LAB LYMN(LOINC) 0.84-2.85 thou/cmm Abs. Lymph 1.06 LAB MONON(LOINC) 0.30-0.82 thou/cmm Abs. [place] 0.59 LAB EOSN(LOINC) 0.04-0.54 thou/cmm Abs. Eosin 0.06 LAB BASON(LOINC) 0.01-0.08 thou/cmm Abs. Baso 0.03 Performed By: #### [id number] #### [place] [id number] PROGRESS Observed: 06/09/2018 Status: COMPLETED Source: [facility] 1:59 PM [facility] REPOSITORY HNO ID: [id number] Author: Sarahy Toussaint Service: (none) Author Type: Physician Type: Progress Notes Filed: 06/09/2018 2:39 PM Note Text: PULMONARY MEDICINE HISTORY AND PHYSICAL Patient Name: Angel Briggs? ? PRIMARY CARE PHYSICIAN: Eugenia Hinds MD ? REFERRING PHYSICIAN: Self CHIEF COMPLAINT: SOB HISTORY OF PRESENT ILLNESS: Angel Briggs is a 82 year old male with a history of COPD and lung nodules comes in for evaluation. This patient is here for first Pulmonary office visit and consultation. I reviewed available objective data including imaging as available. Patient was recently admitted at [facility], from May 26 - May 29, 2018 for acute on chronic diastolic heart failure, atrial fibrillation with RVR, kidney and 3 on chronic kidney disease stage III, and COPD. The hospital stay was complicated by diagnostic heart catheterization, did not require stenting. He continued in atrial fibrillation with a rapid ventricular rate, stabilized and placed on amiodarone during admission. He was also placed on Eliquis. Upon discharge, the patient placed on Lasix 40 mg daily, Eliquis 2.5 mg twice daily, Toprol-XL 25 mg twice daily and amiodarone 200 mg 3 times daily. Patient denies any shortness of breath at rest but has dyspnea on exertion even on walking a few steps. He denies any chest pain or palpitations. He has cough with brownish phlegm. He complains of a swelling in both lower extremities. Patient is on Spiriva and pro-air at home takes Spiriva daily and uses pro-air 1-2 times daily which seems to help a little bit. He complains of noticing a large bruise/ecchymosis on the right side of his chest. He denies any fall or any trauma. 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) - Diabetes insipidus (HCC) - HTN (hypertension) - MDS (myelodysplastic syndrome) (HCC) - Osteoarthrosis, unspecified whether generalized or localized, lower leg - Other and unspecified hyperlipidemia - Other chronic nonalcoholic liver disease - Other diseases of nasal cavity and sinuses(478.19) - Other seborrheic keratosis - Other vitamin B12 deficiency anemia - Paroxysmal atrial tachycardia (HCC) - Paroxysmal ventricular tachycardia (HCC) - Thrombocytopenia, unspecified (HCC) - Unspecified essential hypertension PAST SURGICAL HISTORY Procedure Laterality Date - LAP REPAIR INTIAL INGUINAL HERNIA 02-09-08 right - LAP REPAIR INTIAL INGUINAL HERNIA 02-09-08 left - PAST SURGICAL HISTORY OF 2004 bilat hands, fingers and again 2011 - PAST SURGICAL HISTORY OF 1999 Lt hip replacement FAMILY HISTORY Problem Relation Age of Onset - Cancer Mother GI - Diabetes Mother - Cancer Father colon - Cancer Brother esophagus No reported family hx of ILD fibrosis, PAH, Tb, lung cancer, A1AT deficiency Social History Substance Use Topics - Smoking status: Former Smoker Packs/day: 1.00 Years: 30.00 Types: Cigarettes Quit date: 03/30/1982 - Smokeless tobacco: Never Used - Alcohol use No Ambulatory, see vaccine HX, 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 amiodarone (PACERONE) 200 mg tablet 1 TAB THREE TIMES DAILY X 1 WEEK THEN 1 TWICE DAILY X 2 WEEKS THEN 1 TABLET DAILY ELIQUIS 2.5 mg tab tab(s) Take 2.5 mg by mouth twice daily. furosemide (LASIX) 20 mg tablet Take by mouth twice daily. 40 mg in AM and 20 mg in PM lisinopril 2.5 mg tablet Take 2.5 mg by mouth once daily. metoprolol succinate ER (TOPROL XL) 25 mg 24 hr tablet Take 25 mg by mouth twice daily. simvastatin (ZOCOR) 20 mg tablet EVERY EVENING tamsulosin ER (FLOMAX) 0.4 mg cap DAILY tiotropium (SPIRIVA WITH HANDIHALER) 18 mcg inhalation capsule Inhale 18 mcg as instructed once daily. metFORMIN 500 mg tablet Take two tablets by mouth once daily. Apple Cider Vinegar 300 mg tab APPLE CIDER VINEGAR 300 MG TABS B Complex-Vitamin C-Folic Acid (RENAL-ELIS) 0.8 mg tab RENAL- ELIS TABS tiotropium bromide 1.25 mcg/actuation mist every day multivitamin with minerals (MEN'S ONE DAILY) tablet Take 1 tablet by mouth once daily. saxagliptin-metformin (KOMBIGLYZE XR) 5-1,000 mg TM24 Take 1 tablet by mouth once daily. metoprolol tartrate, short acting, 25 mg tablet Take 25 mg by mouth twice daily. EZETIMIBE/SIMVASTATIN (VYTORIN 10-40 ORAL) Take 0.5 tablets by mouth once daily. lisinopril(ZESTRIL 20 MG TAB) Take one(1) tablet daily. aspirin(NEELIMA LOW STRENGTH 81 MG TAB) one tablet daily REVIEW OF SYSTEMS Constitutional:WELL DEVELOPED, WELL NOURISHED and NO EVIDENCE OF ACUTE DISTRESS HEENT:Negative for frequent or significant headaches, No changes in hearing or vision, no nose bleeds or other nasal problems RESPIRATORY: Cough; productive with brown sputum, Dyspnea, Negative for cough, wheezing or shortness of breath. CARDIOVASCULAR: Complains of swelling in bilateral lower extremities GASTROINTESTINAL: Negative for abdominal discomfort, blood in stools or black stools or change in bowel habits GENITOURINARY: No history of dysuria, frequency or incontinence MATERIAL HANDLING TECHNICIAN: NA MUSCULOSKELETAL: Negative for joint pain or swelling, back pain or muscle pain. NEUROLOGIC:Negative for focal numbness or weakness, headaches and dizziness or syncope. SKIN:Negative for lesions, rash, and itching. PSYCHIATRIC: Negative for sleep disturbance, mood disorder and recent psychosocial stressors. HEMATOLOGIC/LYMPHATIC/IMMUNOLOGIC:{HEMATOLOGY/LYMPHATIC/IMMUNOLO ENDOCRINE: Negative for cold or heat intolerance, polyuria, polydipsia and goiter. The remainder of the ROS was negative. PHYSICAL EXAMINATION: VITAL SIGNS: BP 136/67 Pulse 72 Resp 16 Ht 5' 10.5 (1.79m) Wt 229 lb (103.9kg) SpO2 97[RA]% BMI 32.38 kg/(m2). General appearance: well appearing, alert and in no acute distress Skin: skin color, texture, turgor normal, no rashes or lesions. ecchymosis on the right chest wall Eyes: Anicteric sclera. Pupils are equally round and reactive to light. Extraocular movements are intact. ENT: No oral or nasal erythema, bleeding, lesions, striae Heme/Lymph:Supple, no adenopathy; thyroid symmetric, normal size, no bruits Lungs: no wheezing or rhonchi. Diminished Bs b/l Heart: RRR without murmur, gallop, or rubs. No ectopy GI: Normal abdominal exam, Abdomen soft, non-tender. Bowel sounds normal. No masses, organomegaly Musculoskeletal: Edema: 3+ Psych: no history of psychiatric problems, no history of depression Neuro: Negative. LAST LAB RESULTS: No results found for this basename: inr:1,ptsec:1 No results found for: GLUC, K, NA, CHLOR, CO2, CREAT, BUN, ANION, CA, TPROT, ALB, TBILI, ALKPHOS, AST, ALT No results found for: GLUC DATA: Diagnostic tests reviewed for today's visit, films/specimens were personally reviewed by me: OTHER TESTING: Echo:06/03: from [facility] where CHF Procedure This was a 2D Doppler, Color Flow transthoracic echocardiogram. Exam performed portable in patient room. Left Ventricle Normal LV size. Moderate concentric left ventricular hypertrophy. Left ventricular systolic function is normal. The estimated ejection fraction is 60 %. Diastolic function is indeterminate. No regional wall motion abnormalities noted. Right Ventricle Normal RV size. Normal systolic function. Atria The left atrium is moderately enlarged. The right atrium is mildly enlarged. Mitral Valve There is mild to moderate mitral annular calcification. Mild (1+) eccentric mitral valve insufficiency. Tricuspid Valve Normal tricuspid valve. Mild tricuspid valve insufficiency. Aortic Valve Normal aortic valve. Trisinus/trileaflet aortic valve. Mild (1+) aortic valve insufficiency. Pulmonic Valve Normal pulmonic valve. Great Vessels Normal aortic root. The pulmonary artery is normal size. Normal inferior vena cava. Pericardium/Pleural No pericardial effusion. MMode/2D Measurements AND Calculations LVIDd: 4.0 cm IVSd: 1.5 cm Ao root diam: 3.4 cm LVIDs: 3.0 cm LVPWd: 1.5 cm LA dimension: 4.7 cm RVDd: 3.7 cm FS: 24.3 % LAV(MOD-bp): 115.9 ml LA A4 area: 27.3 cm2 RA A4 area: 20.3 cm2 LAV(MOD-bp) Indexed: 52.2 ml/m2 LAV(MOD-sp2): 104.7 ml LAV(MOD- sp4): 104.8 ml Doppler Measurements AND Calculations MV E max miri: 122.9 cm/sec Ao V2 max: 140.8 cm/sec AI max miri: 380.2 cm/sec Ao max P.9 mmHg AI max P.9 mmHg AI dec slope: 234.6 cm/sec2 AI P1/2t: 474.6 msec LV V1 max: 92.5 cm/sec PA V2 max: 87.0 cm/sec TR max miri: 288.3 cm/sec LV V1 max P.4 mmHg TR max P.7 mmHg Interpretation Summary Normal LV size. Moderate concentric left ventricular hypertrophy. Left ventricular systolic function is normal. The estimated ejection fraction is 60 %. Diastolic function is indeterminate. The left atrium is moderately enlarged. Chest xray: CT CHEST:05/04: (from [facility]): Throughout both lungs there are small bilateral nodular densities demonstrating small some spiculation suggesting malignancy versus inflammation or infection. Largest of these is in the left upper lobe measuring 3.4 and 2.6 cm and another is seen in the inferior aspect of the left upper lobe measuring 1 and 1.1 cm and several punctate 17 the left lower lobe and right lower lobe Multiple small mediastinal lymph nodes are noted a tracheal lymph node noted measuring 9 x 8 mm. Subcarinal lymph node noted measuring 2.5 and 21.2 cm PFT:06/03: [facility] Interpretation: Forced expiration spirometry shows a moderately-severe large airways obstructive ventilatory defect with an FEV1 of 55% predicted. There is no significant bronchodilator response by ATS criteria. Spirograms are of good quality and plateau slowly, indicating slowly emptying areas of the lungs. The respiratory flow volume loop shows decreased expiratory flow rates at high lung volumes consistent with small airways obstruction. Lung volumes by body plethysmography show a decreased total lung capacity at 4.5 L, 71% predicted. All other lung volumes are within normal limits. Diffusion capacity by carbon monoxide is decreased at 53% predicted. The airway resistance is elevated. No previous pulmonary function tests were available for review. Impression: Moderately severe mixed ventilatory defect with no significant response to bronchodilators and symmetric reduction in diffusing capacity IMPRESSIONS: ASSESSMENT/PLAN: 1. Chronic obstructive pulmonary disease, unspecified COPD type ([facility]) - ICD9: 496, ICD10: J44.9 (primary diagnosis) Patient is on Spiriva and albuterol continue Spiriva We did oximetry with ambulation in the office today to evaluate for home oxygen. Oxygen saturations remained around 96-98% throughout the test 2. Lung nodules - ICD9: 793.19, ICD10: R91.8 CT chest from April 2018 shows multiple lung nodules and also 3.42.6 centimeter left upper lobe infiltrate. We'll repeat CT chest for follow-up. Patient doesn't remember if he was treated for pneumonia 3. Ex-smoker - ICD9: V15.82, ICD10: Z87.891 Quit smoking 37 years ago 4. Chronic diastolic CHF (congestive heart failure) ([facility]) - ICD9: 428.32, 428.0, ICD10: I50.32 Patient was recently admitted at [facility] for acute on chronic diastolic CHF exacerbation and also A. fib with RVR. He follows up with cardiology at [place]. 5. Thrombocytopenia ([facility]) - ICD9: 287.5, ICD10: D69.6 Has history of chronic anemia and thrombocytopenia. Patient was recently started on Eliquis for A. fib A. He complains of bruising on the right side of the chest wall without any trauma or injury. Will check his platelet count Sarahy Toussaint MD Medications reviewed Education provided today regarding the stated disease states Patient Instructions: See AVS Written and verbal health teaching given to patient, patient verbalizes understanding and agrees with treatment plan. Followup discussed. Electronically Signed: Sarahy Toussaint MD June 09, 2018 CNOV Observed: 06/09/2018 Status: COMPLETED Source: [place] 1:30 PM [facility] REPOSITORY Office Visit (PULMGR) ANGEL BRIGGS ([id number]) 1935 M Date Time Provider Department 06/09/18 1:30 PM SARAHY TOUSSAINT During your visit today, we recorded the following information about you: Pulse Respiration Blood pressure Weight 72/minute 16/minute 136/67 103.9 kg Height 1.791 m Jodi Fuchschikis Martinez 06/09/2018 1:21 PM Signed COPD Assessment Test (CAT) Scale: 0 being the least and 5 the worse Score I never cough 0 1 2 3 4 5 I cough all the time 3 I have no mucus at all 0 1 2 3 4 5 My chest is completely full of mucus 4 My chest does not feel tight at all 0 1 2 3 4 5 My chest feels very tight 0 When I walk up a hill or a flight of stairs, I am not breathless 0 1 2 3 4 5 When I walk up a hill or flight of stairs, I am very breathless 5 I am not limited doing any activities at home 0 1 2 3 4 5 I am very limited doing any activities at home 5 I am confident leaving home despite my lung disease 0 1 2 3 4 5 I am not confident leaving home because of my lung disease 4 I sleep soundly 0 1 2 3 4 5 I don't sleep soundly because of my lung disease 5 I have lots of energy 0 1 2 3 4 5 I have no energy at all 5 TOTAL SCORE 31 Sarahy Toussaint MD 06/09/2018 2:39 PM Signed PULMONARY MEDICINE HISTORY AND PHYSICAL Patient Name: Angel Briggs? ? PRIMARY CARE PHYSICIAN: Eugenia Hinds MD ? REFERRING PHYSICIAN: Self CHIEF COMPLAINT: SOB HISTORY OF PRESENT ILLNESS: Angel Briggs is a 82 year old male with a history of COPD and lung nodules comes in for evaluation. This patient is here for first Pulmonary office visit and consultation. I reviewed available objective data including imaging as available. Patient was recently admitted at [facility], from May 26 - May 29, 2018 for acute on chronic diastolic heart failure, atrial fibrillation with RVR, kidney and 3 on chronic kidney disease stage III, and COPD. The hospital stay was complicated by diagnostic heart catheterization, did not require stenting. He continued in atrial fibrillation with a rapid ventricular rate, stabilized and placed on amiodarone during admission. He was also placed on Eliquis. Upon discharge, the patient placed on Lasix 40 mg daily, Eliquis 2.5 mg twice daily, Toprol-XL 25 mg twice daily and amiodarone 200 mg 3 times daily. Patient denies any shortness of breath at rest but has dyspnea on exertion even on walking a few steps. He denies any chest pain or palpitations. He has cough with brownish phlegm. He complains of a swelling in both lower extremities. Patient is on Spiriva and pro-air at home takes Spiriva daily and uses pro-air 1-2 times daily which seems to help a little bit. He complains of noticing a large bruise/ecchymosis on the right side of his chest. He denies any fall or any trauma. 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) - Diabetes insipidus (HCC) - HTN (hypertension) - MDS (myelodysplastic syndrome) (HCC) - Osteoarthrosis, unspecified whether generalized or localized, lower leg - Other and unspecified hyperlipidemia - Other chronic nonalcoholic liver disease - Other diseases of nasal cavity and sinuses(478.19) - Other seborrheic keratosis - Other vitamin B12 deficiency anemia - Paroxysmal atrial tachycardia (HCC) - Paroxysmal ventricular tachycardia (HCC) - Thrombocytopenia, unspecified (HCC) - Unspecified essential hypertension PAST SURGICAL HISTORY Procedure Laterality Date - LAP REPAIR INTIAL INGUINAL HERNIA 02-09-08 right - LAP REPAIR INTIAL INGUINAL HERNIA 02-09-08 left - PAST SURGICAL HISTORY OF 2004 bilat hands, fingers and again 2011 - PAST SURGICAL HISTORY OF 1999 Lt hip replacement FAMILY HISTORY Problem Relation Age of Onset - Cancer Mother GI - Diabetes Mother - Cancer Father colon - Cancer Brother esophagus No reported family hx of ILD fibrosis, PAH, Tb, lung cancer, A1AT deficiency Social History Substance Use Topics - Smoking status: Former Smoker Packs/day: 1.00 Years: 30.00 Types: Cigarettes Quit date: 03/30/1982 - Smokeless tobacco: Never Used - Alcohol use No Ambulatory, see vaccine HX, 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 amiodarone (PACERONE) 200 mg tablet 1 TAB THREE TIMES DAILY X 1 WEEK THEN 1 TWICE DAILY X 2 WEEKS THEN 1 TABLET DAILY ELIQUIS 2.5 mg tab tab(s) Take 2.5 mg by mouth twice daily. furosemide (LASIX) 20 mg tablet Take by mouth twice daily. 40 mg in AM and 20 mg in PM lisinopril 2.5 mg tablet Take 2.5 mg by mouth once daily. metoprolol succinate ER (TOPROL XL) 25 mg 24 hr tablet Take 25 mg by mouth twice daily. simvastatin (ZOCOR) 20 mg tablet EVERY EVENING tamsulosin ER (FLOMAX) 0.4 mg cap DAILY tiotropium (SPIRIVA WITH HANDIHALER) 18 mcg inhalation capsule Inhale 18 mcg as instructed once daily. metFORMIN 500 mg tablet Take two tablets by mouth once daily. Apple Cider Vinegar 300 mg tab APPLE CIDER VINEGAR 300 MG TABS B Complex-Vitamin C-Folic Acid (RENAL-ELIS) 0.8 mg tab RENAL- ELIS TABS tiotropium bromide 1.25 mcg/actuation mist every day multivitamin with minerals (MEN'S ONE DAILY) tablet Take 1 tablet by mouth once daily. saxagliptin-metformin (KOMBIGLYZE XR) 5-1,000 mg TM24 Take 1 tablet by mouth once daily. metoprolol tartrate, short acting, 25 mg tablet Take 25 mg by mouth twice daily. EZETIMIBE/SIMVASTATIN (VYTORIN 10-40 ORAL) Take 0.5 tablets by mouth once daily. lisinopril(ZESTRIL 20 MG TAB) Take one(1) tablet daily. aspirin(NEELIMA LOW STRENGTH 81 MG TAB) one tablet daily REVIEW OF SYSTEMS Constitutional:WELL DEVELOPED, WELL NOURISHED and NO EVIDENCE OF ACUTE DISTRESS HEENT:Negative for frequent or significant headaches, No changes in hearing or vision, no nose bleeds or other nasal problems RESPIRATORY: Cough; productive with brown sputum, Dyspnea, Negative for cough, wheezing or shortness of breath. CARDIOVASCULAR: Complains of swelling in bilateral lower extremities GASTROINTESTINAL: Negative for abdominal discomfort, blood in stools or black stools or change in bowel habits GENITOURINARY: No history of dysuria, frequency or incontinence MATERIAL HANDLING TECHNICIAN: NA MUSCULOSKELETAL: Negative for joint pain or swelling, back pain or muscle pain. NEUROLOGIC:Negative for focal numbness or weakness, headaches and dizziness or syncope. SKIN:Negative for lesions, rash, and itching. PSYCHIATRIC: Negative for sleep disturbance, mood disorder and recent psychosocial stressors. HEMATOLOGIC/LYMPHATIC/IMMUNOLOGIC:{HEMATOLOGY/LYMPHATIC/IMMUNOLO ENDOCRINE: Negative for cold or heat intolerance, polyuria, polydipsia and goiter. The remainder of the ROS was negative. PHYSICAL EXAMINATION: VITAL SIGNS: BP 136/67 Pulse 72 Resp 16 Ht 5' 10.5 (1.79m) Wt 229 lb (103.9kg) SpO2 97[RA]% BMI 32.38 kg/(m2). General appearance: well appearing, alert and in no acute distress Skin: skin color, texture, turgor normal, no rashes or lesions. ecchymosis on the right chest wall Eyes: Anicteric sclera. Pupils are equally round and reactive to light. Extraocular movements are intact. ENT: No oral or nasal erythema, bleeding, lesions, striae Heme/Lymph:Supple, no adenopathy; thyroid symmetric, normal size, no bruits Lungs: no wheezing or rhonchi. Diminished Bs b/l Heart: RRR without murmur, gallop, or rubs. No ectopy GI: Normal abdominal exam, Abdomen soft, non-tender. Bowel sounds normal. No masses, organomegaly Musculoskeletal: Edema: 3+ Psych: no history of psychiatric problems, no history of depression Neuro: Negative. LAST LAB RESULTS: No results found for this basename: inr:1,ptsec:1 No results found for: GLUC, K, NA, CHLOR, CO2, CREAT, BUN, ANION, CA, TPROT, ALB, TBILI, ALKPHOS, AST, ALT No results found for: GLUC DATA: Diagnostic tests reviewed for today's visit, films/specimens were personally reviewed by me: OTHER TESTING: Echo:06/03: from [facility] where CHF Procedure This was a 2D Doppler, Color Flow transthoracic echocardiogram. Exam performed portable in patient room. Left Ventricle Normal LV size. Moderate concentric left ventricular hypertrophy. Left ventricular systolic function is normal. The estimated ejection fraction is 60 %. Diastolic function is indeterminate. No regional wall motion abnormalities noted. Right Ventricle Normal RV size. Normal systolic function. Atria The left atrium is moderately enlarged. The right atrium is mildly enlarged. Mitral Valve There is mild to moderate mitral annular calcification. Mild (1+) eccentric mitral valve insufficiency. Tricuspid Valve Normal tricuspid valve. Mild tricuspid valve insufficiency. Aortic Valve Normal aortic valve. Trisinus/trileaflet aortic valve. Mild (1+) aortic valve insufficiency. Pulmonic Valve Normal pulmonic valve. Great Vessels Normal aortic root. The pulmonary artery is normal size. Normal inferior vena cava. Pericardium/Pleural No pericardial effusion. MMode/2D Measurements AND Calculations LVIDd: 4.0 cm IVSd: 1.5 cm Ao root diam: 3.4 cm LVIDs: 3.0 cm LVPWd: 1.5 cm LA dimension: 4.7 cm RVDd: 3.7 cm FS: 24.3 % - _ LAV(MOD-bp): 115.9 ml LA A4 area: 27.3 cm2 RA A4 area: 20.3 cm2 LAV(MOD-bp) Indexed: 52.2 ml/m2 LAV(MOD-sp2): 104.7 ml LAV(MOD-sp4): 104.8 ml Doppler Measurements AND Calculations MV E max miri: 122.9 cm/sec Ao V2 max: 140.8 cm/sec AI max miri: 380.2 cm/sec Ao max P.9 mmHg AI max P.9 mmHg AI dec slope: 234.6 cm/sec2 AI P1/2t: 474.6 msec - _ LV V1 max: 92.5 cm/sec PA V2 max: 87.0 cm/sec TR max miri: 288.3 cm/sec LV V1 max P.4 mmHg TR max P.7 mmHg Interpretation Summary Normal LV size. Moderate concentric left ventricular hypertrophy. Left ventricular systolic function is normal. The estimated ejection fraction is 60 %. Diastolic function is indeterminate. The left atrium is moderately enlarged. Chest xray: CT CHEST:05/04: (from [facility]): Throughout both lungs there are small bilateral nodular densities demonstrating small some spiculation suggesting malignancy versus inflammation or infection. Largest of these is in the left upper lobe measuring 3.4 and 2.6 cm and another is seen in the inferior aspect of the left upper lobe measuring 1 and 1.1 cm and several punctate 17 the left lower lobe and right lower lobe Multiple small mediastinal lymph nodes are noted a tracheal lymph node noted measuring 9 x 8 mm. Subcarinal lymph node noted measuring 2.5 and 21.2 cm PFT:06/03: [facility] Interpretation: Forced expiration spirometry shows a moderately-severe large airways obstructive ventilatory defect with an FEV1 of 55% predicted. There is no significant bronchodilator response by ATS criteria. Spirograms are of good quality and plateau slowly, indicating slowly emptying areas of the lungs. The respiratory flow volume loop shows decreased expiratory flow rates at high lung volumes consistent with small airways obstruction. Lung volumes by body plethysmography show a decreased total lung capacity at 4.5 L, 71% predicted. All other lung volumes are within normal limits. Diffusion capacity by carbon monoxide is decreased at 53% predicted. The airway resistance is elevated. No previous pulmonary function tests were available for review. Impression: Moderately severe mixed ventilatory defect with no significant response to bronchodilators and symmetric reduction in diffusing capacity IMPRESSIONS: ASSESSMENT/PLAN: 1. Chronic obstructive pulmonary disease, unspecified COPD type (HCC) - ICD9: 496, ICD10: J44.9 (primary diagnosis) Patient is on Spiriva and albuterol continue Spiriva We did oximetry with ambulation in the office today to evaluate for home oxygen. Oxygen saturations remained around 96-98% throughout the test 2. Lung nodules - ICD9: 793.19, ICD10: R91.8 CT chest from April 2018 shows multiple lung nodules and also 3.42.6 centimeter left upper lobe infiltrate. We'll repeat CT chest for follow-up. Patient doesn't remember if he was treated for pneumonia 3. Ex-smoker - ICD9: V15.82, ICD10: Z87.891 Quit smoking 37 years ago 4. Chronic diastolic CHF (congestive heart failure) (HCC) - ICD9: 428.32, 428.0, ICD10: I50.32 Patient was recently admitted at [facility] for acute on chronic diastolic CHF exacerbation and also A. fib with RVR. He follows up with cardiology at [facility]. 5. Thrombocytopenia (HCC) - ICD9: 287.5, ICD10: D69.6 Has history of chronic anemia and thrombocytopenia. Patient was recently started on Eliquis for A. fib A. He complains of bruising on the right side of the chest wall without any trauma or injury. Will check his platelet count Sarahy Toussaint MD Medications reviewed Education provided today regarding the stated disease states Patient Instructions: See AVS Written and verbal health teaching given to patient, patient verbalizes understanding and agrees with treatment plan. Followup discussed. Electronically Signed: Sarahy Toussaint MD June 09, 2018 Sarahy Toussaint MD 06/09/2018 2:30 PM Signed My Plan and Interventions: 1. Return to office in 4-5 weeks (appt after CT chest) 2. Tests to be ordered today:Blood work, CT chest 3. New medications today:none 4. Special Instructions:call if symptoms get worsae 5. Summary of today's visit: COPD 6. Referrals today: none Copy to Referring physician- yes Thank you for allowing me to participate in this patient's care. Referring Provider: SELF [[id number]] Allergies As of Date: 06/09/2018 Noted Allergy Reaction CODEINE 09/27/2007 16 - Unknown Date Reviewed: 06/09/2018 Reviewed by: Sarahy Toussaint - Fully Assessed Reason for Visit: COPD [27] Primary Visit Diagnosis:Chronic obstructive pulmonary disease, unspecified COPD type ([facility]) [J44.9] Other Visit Diagnoses:Lung nodules [R91.8] Ex-smoker [Z87.891] Chronic diastolic CHF (congestive heart failure) (HCC) [I50.32] Thrombocytopenia (HCC) [D69.6] Order(s):CBC + DIFF [SQCBCDIF] Order #: [id number] FUTURE OXIMETRY WITH AMBULATION [[id number]] Order #: [id number] FUTURE CT CHEST WO IVCON [[id number]] Order #: [id number] FUTURE Prescriptions as of 06/09/2018 Sig: VENTOLIN HFA 90 MCG/ACTUATION* Inhale 2 Puffs as instructed * AMIODARONE 200 MG TABLET 1 TAB THREE TIMES DAILY X 1 W* ELIQUIS 2.5 MG TABLET Take 2.5 mg by mouth twice da* FUROSEMIDE 20 MG TABLET Take by mouth twice daily. 40* LISINOPRIL 2.5 MG TABLET Take 2.5 mg by mouth once lyn* METOPROLOL SUCCINATE ER 25 MG* Take 25 mg by mouth twice lyn* SIMVASTATIN 20 MG TABLET EVERY EVENING TAMSULOSIN 0.4 MG CAPSULE DAILY TIOTROPIUM BROMIDE 18 MCG CAP* Inhale 18 mcg as instructed o* * METFORMIN 500 MG TABLET Take two tablets by mouth onc* APPLE CIDER VINEGAR 300 MG TA* APPLE CIDER VINEGAR 300 MG TA* VITAMIN B COMPLEX-VITAMIN C-F* RENAL-ELIS TABS TIOTROPIUM BROMIDE 1.25 MCG/A* every day * MULTIVITAMIN WITH MINERALS TA* Take 1 tablet by mouth once d* * SAXAGLIPTIN 5 MG-METFORMIN ER* Take 1 tablet by mouth once d* * METOPROLOL TARTRATE 25 MG TAB* Take 25 mg by mouth twice lyn* * VYTORIN 10-40 ORAL Take 0.5 tablets by mouth onc* * ZESTRIL 20 MG TABLET Take one(1) tablet daily. * ADULT LOW STRENGTH 81 MG TABL* one tablet daily Problem List As Of Date 06/09/2018 Noted Resolved BILAT INGUINAL HERNIA [K40.20] INVALID FOR* Right lower quadrant pain [R10.31] INVALID FOR* Anemia, unspecified [D64.9] INVALID FOR* Thrombocytopenia, unspecified [D69.6] INVALID FOR* Other instructions from your clinician: My Plan and Interventions: 1. Return to office in 4-5 weeks (appt after CT chest) 2. Tests to be ordered today:Blood work, CT chest 3. New medications today:none 4. Special Instructions:call if symptoms get worsae 5. Summary of today's visit: COPD 6. Referrals today: none Copy to Referring physician- yes Thank you for allowing me to participate in this patient's care. Visit Notes: >> Jodirey Blanc Ma ThuJun 09, 2018 1:20 PM Status: Signed COPD Assessment Test (CAT) Scale: 0 being the least and 5 the worse Score I never cough 0 1 2 3 4 5 I cough all the time 3 I have no mucus at all 0 1 2 3 4 5 My chest is completely full of mucus 4 My chest does not feel tight at all 0 1 2 3 4 5 My chest feels very tight 0 When I walk up a hill or a flight of stairs, I am not breathless 0 1 2 3 4 5 When I walk up a hill or flight of stairs, I am very breathless 5 I am not limited doing any activities at home 0 1 2 3 4 5 I am very limited doing any activities at home 5 I am confident leaving home despite my lung disease 0 1 2 3 4 5 I am not confident leaving home because of my lung disease 4 I sleep soundly 0 1 2 3 4 5 I don't sleep soundly because of my lung disease 5 I have lots of energy 0 1 2 3 4 5 I have no energy at all 5 TOTAL SCORE 31 Disposition: Return in about 4 weeks (around 07/07/2018). Follow-up and Disposition History Recorded Letter Text Encounter Status:Closed by SARAHY TOUSSAINT MD on 06/09/18 L/S SPINE MIN 4 Observed: 06/08/2018 Status: F Source: MOBILE VIEWS 10:18 AM [facility] REPOSITORY [facility] Imaging Services [address] [place] [id number] L/S Spine Min 4 Views MR#: [id number] Acct: [id number] Name: ANGEL BRIGGS Rep #: [id number] : 1935 M 82 From: Lakia Cooper PCP: Roc Martinez MD Status: REG CLI Study: L/S Spine Min 4 Views Date of Exam: 06/08/18 Exam# [id number] Ordering Dr: Ursula Duff MD STUDY: X-RAY - LUMBAR SPINE REASON FOR EXAM: Male, 82 years old. Back pain. TECHNIQUE: AP, lateral, extension lateral and cone-down lateral view(s) of the lumbar spine were obtained. COMPARISON: 09/21/2017 FINDINGS: Normal lumbar lordosis. There is somewhat restricted extension motion. There is no substantial scoliosis. There is no segmental malalignment. There is diffuse demineralization with multi-level endplate spondylosis. There is multi-level degenerative disc disease with moderate disc space narrowing of the lower thoracic and lumbosacral spine. T11 and T12 vertebral mild compression deformity. There is atherosclerotic calcification of the abdominal aorta without a demonstrated aneurysm. Total left hip arthroplasty. RAD/L/S Spine Min 4 Views IMPRESSION: Degenerative changes of the spine, as detailed above. Electronically Signed: Dunia Cooper MD at 10:45 EDT Tel , Service support , CC: Roc Martinez MD; Ursula Duff MD Medical Physics Teacher: Signed INTERNAL MEDICINE Observed: 06/03/2018 Status: F Source: YOSI OFFICE VISIT 5:02 PM [facility] [address] [place] [address] [address] [place] [address] OFFICE VISIT Date of Service: 05/31/18 MR#: [id number] Acct: [id number] Name: ANGEL BRIGGS Rep #: [id number] : 1935 Provider: Roc Martinez MD Age/Sex: 82/M Location: [facility] Status: Signed Intake Vital Signs05/31/18 Height 5 ft 10 in Intake Visit Reasons: Shortness of breath Chief Complaint: Hospital follow-up. Is patient in pain?: No Allergies codeine Adverse Reaction (Severe, Verified 06/01/18 09:24) Unknown Medications apple cider vinegar 300 mg tablet 450 mg PO DAILY 09/15/17 [History Confirmed 06/01/18] multivitamin with iron tablet 1 tab PO QDAY 09/15/17 [History Confirmed 06/01/18] mecobalamin (vitamin B12) 1,000 mcg disintegrating tablet,sublingual 1,000 mcg SUBLINGUAL QDAY 09/25/17 [History Confirmed 06/01/18] albuterol sulfate HFA 90 mcg/actuation aerosol inhaler 1 puff INHALATION Q6H PRN #8.5 g 04/28/18 [Rx Confirmed 06/01/18] Guaifenesin [Guaifenesin ER] 1,200 mg PO Q12H 05/26/18 [History Confirmed 06/01/18] Lisinopril [Zestril] 2.5 mg PO QDAY 05/26/18 [History Confirmed 06/01/18] Metformin HCl [Glucophage] 1,000 mg PO DAILY 05/26/18 [History Confirmed 06/01/18] Tamsulosin HCl [Flomax] 0.4 mg PO DAILY 05/26/18 [History Confirmed 06/01/18] Tiotropium [place] [Spiriva] 1 cap INHALATION DAILY 05/26/18 [History Confirmed 06/01/18] Amiodarone HCl [Cordarone] 200 mg PO TID #90 tab 05/29/18 [Rx Confirmed 06/01/18] Apixaban [Eliquis] 2.5 mg PO BID #60 tab 05/29/18 [Rx Confirmed 06/01/18] Furosemide [Lasix] 40 mg PO DAILY #30 tab 05/29/18 [Rx Confirmed 06/01/18] Metoprolol(XL)Succ [Toprol Xl (Beta Daniel)] 25 mg PO BID #60 tab 05/29/18 [Rx Confirmed 06/01/18] simvastatin 20 mg tablet 20 mg PO QHS #90 tab 05/31/18 [Rx Confirmed 06/01/18] PFSH Medical History Atrial fibrillation (Acute) Shortness of breath (Chronic) Acute on chronic diastolic CHF (congestive heart failure) (Acute) Anemia (Chronic) Thrombocytopenia (Chronic) Pain on swallowing (Acute) Premature atrial contractions (Acute) MDS (myelodysplastic syndrome), low grade (Chronic) Hypotension (Acute) Paroxysmal atrial tachycardia (Acute) Paroxysmal ventricular tachycardia (Acute) Premature ventricular contraction (Acute) Palpitations (Acute) HTN (hypertension) (Chronic) Hyperlipidemia (Chronic) Hypertension (Chronic) Hyperlipemia (Chronic) Type 2 diabetes mellitus (Chronic) COPD (chronic obstructive pulmonary disease) (Chronic) Bilateral hip pain (Acute) Contusion of right knee (Acute) Inguinal hernia (Acute) Low back pain (Acute) Prepatellar bursitis, right knee (Acute) Thrombocytopenia (Acute) heart catheterization (Acute) Arthritis (Chronic) BPH (benign prostatic hyperplasia) (Chronic) BPH (benign prostatic hyperplasia) (Chronic) MDS (myelodysplastic syndrome), low grade (Chronic) Surgical History H/O hernia repair (Chronic) 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) History of hand surgery (Resolved) Family History Mother Cancer, Onset Age: 59 Pancreatic Father Cancer, Onset Age: 44 Intestinal Brother Cancer, Onset Age: 78 Son CVA (cerebral vascular accident) Diabetes Mother Cancer Social History household members: none housing: house current occupational status: retired pets and animals: No Smoking Status: Former smoker quit date: 08/17/80 pack-years: 26 how long ago did patient quit smokin second hand exposure: No alcohol intake: never substance use type: does not use what type of physical activity do you participate in: none HPI HPI Chief Complaint: Hospital follow-up. Details: ANGEL BRIGGS, is an 82yo M who presents to the office today for follow-up of recent hospital admission. He was admitted to the hospital last week due to acute worsening of progressively worsening shortness of breath. During his hospital stay he was noted to have significantly elevated right sided heart pressure. He had a left and right heart cath with 60% stenosis of his LAD noted however no intervention was done. During his hospital stay, he was also noted to be new onset atrial fibrillation. Subsequently started on amiodarone and apixaban. He has done well on these medications. He however reports continued shortness of breath most significantly with activity. There has been no improvement since his hospital discharge. He actually states that there is no difference between his initial presentation to the hospital and his symptoms today. He has had to significantly limit his activities due to shortness of breath. He denies chest pain, palpitations or otherwise feeling of unwell. ROS Const Constitutional: No anorexia, body ache, chills, fever(s), decreased energy, malaise, night sweats, weight change, sleep problems, other, snoring, weakness, frequent falls, headache(s), abnormal sleep pattern, change in appetite, excessive sweating or fatigue Eyes Eyes: No blurry vision, change in vision, double vision, discharge, dry eyes, bulging eyes, floaters, eye pain, light sensitivity, spots in vision, tunnel vision, other or visual disturbances ENT ENT: No ear pain, ear discharge, ear pressure, hearing loss, tinnitus, dizziness/vertigo, balance problems, nosebleed/epistaxis, nasal congestion, nasal obstruction, nose pain, sinus pressure, sinus pain, nasal discharge, post nasal drip, facial pain, dental pain, dry mouth, bad breath, hoarseness, mouth lesions, mouth pain, sore throat, difficulty swallowing, neck pain, abnormal hearing, headache(s), other, lip swelling, throat swelling or tongue swelling Resp Respiratory: Positive for excessive phlegm production and shortness of breath; no cough, change in phlegm color, chest congestion, hemoptysis, pain on inspiration, pain with cough, snoring, stridor or other Cardio Cardiology: Positive for leg pain with exertion, shortness of breath and other (Bilateral Swelling in legs ); no chest pain at rest, chest pain with exertion, dyspnea on exertion, generalized swelling, irregular heart rhythm, lightheadedness, orthopnea, radiating jaw, neck or arm pain, fast heart rate, slow heart rate, palpitations or excessive sweating Gastro GI: No abdominal pain, belching, bloating, change in bowel habits, change in stool character, coffee ground emesis, constipation, cramping, diarrhea, heartburn, difficulty swallowing, feeling full early, excessive flatus, incontinent of stools, Vomiting blood/hematemesis, blood in stool, loose stools, Black,tarry stools, nausea/dyspepsia, pain with swallowing, vomiting or other Genitourinary Male: No difficulty urinating, burning urination, painful urination, urinary incontinence, urinary frequency, urinary urgency, urinary hesitancy, urinary retention, blood in urine, Frequent nighttime urination/ nocturia, post void dribbling, suprapubic fullness, side pain, sexual problems, genital lesions, genital itching, erectile dysfunction, penile discharge, difficulty with ejaculations, blood in semen, scrotal swelling, testicle lump, testicle pain or other Musc Musculoskeletal: No joint pain, back pain, deformity, joint swelling, limited range of motion, loss of height, muscle cramps, muscle weakness, decreased muscle mass, body aches, neck pain, radiating pain into limb, stiffness, other, abnormal walking, numbness or tingling Skin Skin: No acne, hair loss, change in hair, nail changes, boil, change in skin color, dry skin, redness, excessive hair growth, yellowing of the skin, lesions, rash, skin pain, skin ulcer, sores, skin swelling, wounds, other or itching Breast Breast: No change in breast shape, breast lump, breast pain, breast skin changes, breast swelling, nipple discharge or other Neuro Neurology: No abnormal walking, abnormal hearing, abnormal movements, abnormal speech, unsteady gait/balance, dizziness, weakness, frequent falls, headache(s), lack of coordination, loss of vision, numbness, tingling, visual disturbances, restless legs, fainting, tremor(s), other, behavioral changes, confusion or memory loss Psych Psychiatric: No abnormal sleep pattern, No lack of enjoyment, No anxiety, No behavioral changes, No change in appetite, No confusion, No depression, No difficulty concentrating, No hopelessness, No irritability, No memory loss, No mood swings, No panic attacks, No paranoia, No Thoughts of harming yourself/Others, No hallucinations, No other Endo Endocrine: No change in body appearance, cold intolerance, excessive sweating, fatigue, flushing, heat intolerance, increased thirst/drinking, increased hunger, increased urination or other Aller/Imm Allergy/Immunologic: No food intolerance, itchy eyes, lip swelling, seasonal allergy symptoms, throat swelling, tongue swelling, hives or other Blade/Lymp Hematologic/Lymphatic: No easy bleeding, easy bruising, enlarged lymph nodes or other Exam Const General: cooperative, no acute distress Orientation: alert, awake, oriented x3 HENMT Head: atraumatic, normocephalic Ears: hearing grossly normal bilaterally Resp Effort AND Inspection: normal respiratory effort, able to speak in complete sentences Auscultation: Bilateral: Clear to Auscultation, Diminished Lung Sounds Cardio Rhythm: abnormal rhythm Heart Sounds: S1 normal, S2 normal GI Palpation: soft, no hepatosplenomegaly Musc Musculoskeletal: No muscle weakness Neuro General: alert, awake, oriented x3, moves all extremities, CN's II-XI intact bilaterally Extrem General: pedal edema bilaterally Psych Appearance: grossly normal Mental Status: mental status grossly normal Mood: congruent mood Affect: normal affect Assessment AND Plan 1. Shortness of breath R06.02 Plan Said to have acutely worsened last week and despite hospital admission has remained the same. Noted to have significant pulmonary hypertension during his hospital stay. There was also concern for possible interstitial lung disease. Initial pulse ox noted to be 89%, at rest it came up to 94% and with activity he again dropped to 86%. Scheduled to follow-up with Dr. Connolly on 17 June however, I believe patient might require oxygen due to significant desaturation with activity. Will attempt to schedule an earlier visit with pulmonary. Continue other management for now. 2. Hypotension I95.9 Plan Reports a blood pressure reading of 80/46 mmHg last night. He was restarted on lisinopril during his hospital stay. Metoprolol was also increased. Patient with a chronic history of hypotension. Advised to discontinue lisinopril. Continue metoprolol for now. Currently taking 25 mg twice daily of Toprol-XL which was given to him during his hospital stay. Should be daily. If hypotension persists, will consider reducing to daily. Advised to call the office. 3. Atrial fibrillation I48.91 Plan Rate controlled. Plan is for possible Cardioversion. Currently on amiodarone. Continue current management. Scheduled to follow-up with cardiology in 2 weeks. This note was generated with [email or web address] dictation software. It may contain incorrect words, spelling, and punctuation that were not noted in checking the note before signing. Coding Level of Care Code Off vis,est,level 4 Diagnoses Shortness of breath R06.02 Hypotension I95.9 Atrial fibrillation I48.91 06/03/187 <Electronically signed by Roc Martinez MD> Date Roc Martinez MD Cosigner Signature: Date (if applicable) CC: 6 MINUTE WALK TEST Observed: 06/03/2018 Status: F Source: YOSI 4:18 PM [facility] REPOSITORY [facility] Pulmonary Services/Neurology [address] [place] [address] MR#: [id number] Acct: [id number] Name: ANGEL BRIGGS Rep #: [id number] : 1935 82 From: Arturo Toro MD Referring Dr: Jenna Gerber WIRER MAINTENANCE Date: Ordering Dr: Sex: M C Location: PSN PSN 6 Minute Walk Test - 6 Minute Walk Test 6 Minute Walk Test: 6 Minute Walk Test PSN:6-Minute Walk Test Start: 06/03/18 11:12 Freq: Status: Active Protocol: [id number].6MINW Document 06/03/18 11:00 HG (Rec: 06/03/18 11:14 HG [id number]) 6 Minute Walk Test Date Performed 06/03/18 Time Performed 11:00 Height 5 ft 10 in Weight: 102.058 kg Weight in Pounds 225.[address]: Jenna Gerber Assistive device used: None Pre-test Oxygen Delivery Method Room Air Pulse Ox (%) 98 Pulse Rate (60-100 beats/min) 75 Dyspnea Ginna Scale (0-10) 2 Exertion Ginna Scale (6-20) 11 1st minute Oxygen Delivery Method Room Air Pulse Ox (%) 90 Pulse Rate (60-100 beats/min) 64 2nd minute Oxygen Delivery Method Room Air Pulse Ox (%) 90 Pulse Rate (60-100 beats/min) 66 3rd minute Oxygen Delivery Method Room Air Pulse Ox (%) 97 Pulse Rate (60-100 beats/min) 80 Number of Rests Taken 1 Reported Symptoms Increased Work of Breathing 4th minute Oxygen Delivery Method Room Air Pulse Ox (%) 91 Pulse Rate (60-100 beats/min) 83 Number of Rests Taken 1 Reported Symptoms Increased Work of Breathing 5th minute Oxygen Delivery Method Room Air Pulse Ox (%) 90 Pulse Rate (60-100 beats/min) 84 6th minute Oxygen Delivery Method Room Air Pulse Ox (%) 89 Pulse Rate (60-100 beats/min) 88 Post-test Oxygen Delivery Method Room Air Pulse Ox (%) 95 Pulse Rate (60-100 beats/min) 90 Dyspnea Ginna Scale (0-10) 3 Exertion Ginna Scale (6-20) 13 Full Laps Walked 10 Partial Lap, Number of Tiles Walked 0 Total Distance Walked (ft) 590 - Interpretation Interpretation: The patient was able to ambulate only 590 feet over the course of 6 minutes on room air with no assistive devices and 2 breaks secondary to dyspnea. The patient did have significant desaturation with a baseline of 98%, but desaturated as low as 89% with ambulation. These findings are consistent with a respiratory limitation exercise tolerance. - Recommendations Recommendations: No supplemental oxygen is indicated at this time. However, patient will need to be followed closely given level of desaturation. 06/03/18 1618 <Electronically signed by Arturo Toro MD> Date Arturo Toro MD CC: Date Dictated: 06/03/181603 Date Transcribed: 06/03/181603 Medical Physics Teacher: Arturo Toro Signed PULMONARY FUNCTION Observed: 06/03/2018 Status: F Source: MOBILE REPORT COMP 5:19 AM [facility] REPOSITORY [facility] Pulmonary Services/Neurology [address] [place] [address] MR#: [id number] Acct: [id number] Name: ANGEL BRIGGS Rep #: [id number] : 1935 82 From: Arturo Toro MD Referring Dr: Jenna Gerber WIRER MAINTENANCE Status: REG CLI Ordering Dr: Date: Location: [facility] Sex: M C COMPLETE PULMONARY FUNCTION TEST INTERPRETATION Brief HPI: Patient is an 82 year old male, currently under the care of Dr. Connolly, who presents to [facility] for complete pulmonary function tests secondary to diagnosis of COPD. Respiratory therapist reports good effort and reproducible results. Interpretation: Forced expiration spirometry shows a moderately-severe large airways obstructive ventilatory defect with an FEV1 of 55% predicted. There is no significant bronchodilator response by ATS criteria. Spirograms are of good quality and plateau slowly, indicating slowly emptying areas of the lungs. The respiratory flow volume loop shows decreased expiratory flow rates at high lung volumes consistent with small airways obstruction. Lung volumes by body plethysmography show a decreased total lung capacity at 4.5 L, 71% predicted. All other lung volumes are within normal limits. Diffusion capacity by carbon monoxide is decreased at 53% predicted. The airway resistance is elevated. No previous pulmonary function tests were available for review. Impression: Moderately severe mixed ventilatory defect with no significant response to bronchodilators and symmetric reduction in diffusing capacity. 06/03/18 0519 <Electronically signed by Arturo Toro MD> Date Arturo Toro MD CC: Arturo Toro MD; Jenna Gerber; Roc Martinez MD Date Dictated: 06/02/181452 Date Transcribed: 06/02/181452 Medical Physics Teacher: JOHN Signed PULMONARY VISIT REPORT Observed: 06/02/2018 Status: F Source: MOBILE 1:25 PM [facility] REPOSITORY [facility] [address] [place] [address] OFFICE VISIT Date of Service: 06/01/18 MR#: [id number] Acct: [id number] Name: ANGEL BRIGGS Rep #: [id number] : 1935 Provider: Jenna Gerber Age/Sex: 82/M Location: [facility] Status: Signed Assessment AND Plan 1. Chronic obstructive pulmonary disease, unspecified COPD type J44.9 Plan Suspect COPD, obtaining pulmonary function test to quantify and positively diagnose COPD. No change in maintenance medications until PFTs can be reviewed. Follow-up with Dr. Connolly in 2 months, at which time PFTs will be reviewed and a plan will be developed. Contact the office with any new or worsening symptoms in the meantime. 2. Shortness of breath R06.02 Plan Blood work returned after the patient was discharged from the hospital did confirm a positive TIFFANI as well as WOMEN NURSE antibody. Referral to rheumatology for further autoimmune workup. This was explained to the patient, he conveys understanding and is agreeable with the plan. Follow-up with Dr. Connolly in 2 months, at which time they can discuss rheumatology's input. Contact the office with any new or worsening symptoms in the meantime. Also sending for walking oximetry to evaluate for possible exertional hypoxia. If indicated, supplemental oxygen will be ordered. Laboratory Tests TIFFANI Screen Positive H WOMEN NURSE Antibody 5.6 H Orders Orders: Referrals: 3. Acute on chronic diastolic CHF (congestive heart failure) I50.33 Plan Complicates exam, plan, care and prognosis. Defer management to cardiology. Plan Detail Follow Up 2 Months (DMB) HPI Chronic obstructive pulmonary disease: Chief Complaint: Dyspnea HPI Comments Details: This is a 82 year old M, currently under the care of Roc Martinez MD, here to follow up after a recent hospitalization at [facility], from May 26 - May 29, 2018 for acute on chronic diastolic heart failure, atrial fibrillation with RVR, kidney and 3 on chronic kidney disease stage III, and COPD. The hospital stay was complicated by diagnostic heart catheterization, did not require stenting. 11 Pages of hospital documentation was reviewed, and found to be significant for a Chest x-ray completed on May 26 showing low lung volumes, small right pleural effusion, no evidence of acute failure and stable cardiomegaly. He continued in atrial fibrillation with a rapid ventricular rate, stabilized and placed on amiodarone during admission. He was also placed on Eliquis. Upon discharge, the patient placed on Lasix 40 mg daily, Eliquis 2.5 mg twice daily, Toprol-XL 25 mg twice daily and amiodarone 200 mg 3 times daily. Today he presents the office ambulatory and on room air. He continues to experience shortness of breath and comes fatigued and short of breath on exertion more easily, exerted more easily. He is reporting dizziness, dizziness is present with position change. He also states that he has normally low blood pressure. He denies any cough, sputum production or hemoptysis. He denies any palpitations. He does not experience any chest pain. He denies any fever, chills or body aches. He is compliant with Spiriva daily. He denies any medication side effects such as sore throat or hoarseness. He has a Ventolin rescue inhaler but has not felt the need to use it. See complete review of systems. Intake Vital Signs06/01/18 Height 5 ft 10 in 06/01/18 Weight: 233 lb Intake Visit Reasons: COPD Seat Coverer Required: No Accompanied by: Self Allergies codeine Adverse Reaction (Severe, Verified 06/01/18 09:24) Unknown Medications apple cider vinegar 300 mg tablet 450 mg PO DAILY 09/15/17 [History Confirmed 06/01/18] multivitamin with iron tablet 1 tab PO QDAY 09/15/17 [History Confirmed 06/01/18] mecobalamin (vitamin B12) 1,000 mcg disintegrating tablet,sublingual 1,000 mcg SUBLINGUAL QDAY 09/25/17 [History Confirmed 06/01/18] albuterol sulfate HFA 90 mcg/actuation aerosol inhaler 1 puff INHALATION Q6H PRN #8.5 g 04/28/18 [Rx Confirmed 06/01/18] Guaifenesin [Guaifenesin ER] 1,200 mg PO Q12H 05/26/18 [History Confirmed 06/01/18] Lisinopril [Zestril] 2.5 mg PO QDAY 05/26/18 [History Confirmed 06/01/18] Metformin HCl [Glucophage] 1,000 mg PO DAILY 05/26/18 [History Confirmed 06/01/18] Tamsulosin HCl [Flomax] 0.4 mg PO DAILY 05/26/18 [History Confirmed 06/01/18] Tiotropium [place] [Spiriva] 1 cap INHALATION DAILY 05/26/18 [History Confirmed 06/01/18] Amiodarone HCl [Cordarone] 200 mg PO TID #90 tab 05/29/18 [Rx Confirmed 06/01/18] Apixaban [Eliquis] 2.5 mg PO BID #60 tab 05/29/18 [Rx Confirmed 06/01/18] Furosemide [Lasix] 40 mg PO DAILY #30 tab 05/29/18 [Rx Confirmed 06/01/18] Metoprolol(XL)Succ [Toprol Xl (Beta Daniel)] 25 mg PO BID #60 tab 05/29/18 [Rx Confirmed 06/01/18] simvastatin 20 mg tablet 20 mg PO QHS #90 tab 05/31/18 [Rx Confirmed 06/01/18] PFSH Medical History Atrial fibrillation (Acute) Shortness of breath (Chronic) Acute on chronic diastolic CHF (congestive heart failure) (Acute) Anemia (Chronic) Thrombocytopenia (Chronic) Pain on swallowing (Acute) Premature atrial contractions (Acute) MDS (myelodysplastic syndrome), low grade (Chronic) Hypotension (Acute) Paroxysmal atrial tachycardia (Acute) Paroxysmal ventricular tachycardia (Acute) Premature ventricular contraction (Acute) Palpitations (Acute) HTN (hypertension) (Chronic) Hyperlipidemia (Chronic) Hypertension (Chronic) Hyperlipemia (Chronic) Type 2 diabetes mellitus (Chronic) COPD (chronic obstructive pulmonary disease) (Chronic) Bilateral hip pain (Acute) Contusion of right knee (Acute) Inguinal hernia (Acute) Low back pain (Acute) Prepatellar bursitis, right knee (Acute) Thrombocytopenia (Acute) heart catheterization (Acute) Arthritis (Chronic) BPH (benign prostatic hyperplasia) (Chronic) BPH (benign prostatic hyperplasia) (Chronic) MDS (myelodysplastic syndrome), low grade (Chronic) Surgical History H/O hernia repair (Chronic) 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) History of hand surgery (Resolved) Family History Mother Cancer, Onset Age: 59 Pancreatic Father Cancer, Onset Age: 44 Intestinal Brother Cancer, Onset Age: 78 Son CVA (cerebral vascular accident) Diabetes Mother Cancer Social History household members: none housing: house current occupational status: retired pets and animals: No Smoking Status: Former smoker quit date: 08/17/80 pack-years: 26 how long ago did patient quit smokin second hand exposure: No alcohol intake: never substance use type: does not use what type of physical activity do you participate in: none Review of Systems Const CONSTITUTIONAL: Positive fatigue; negative anorexia, body ache, chills, daytime sleepiness, fever(s), night sweats, oral thrush, stops breathing during sleep, weight loss, sleeping in chair, weight loss, weight gain, frequent colds, seasonal allergies, other, headache(s) or orthopnea EETM Ear Nose Throat Mouth: Positive hearing normal; negative hard of hearing, hoarseness, dry mouth in morning, change in vision, itchy eyes, eye pain, swallowing Difficulty, ear pain, nose bleed, headache(s), mouth pain, nasal congestion, nasal discharge, post nasal drip, sinus pain, sinus pressure, sore throat or other Cardio Cardiovascular: Negative chest pain, chest pain at rest, chest pain with activity, irregular heart rhythm, edema, shortness of breath when lying down, palpitations, murmur or other Resp Respiratory: Positive as per HPI and shortness of breath shortness of breath: Positive with activity; negative pain with cough, wheezing, chest congestion, cough, chest tightness, pain on inspiration, inhalers, increase use of rescue inhalers, snoring, apnea or other Gastro Gastrointestional: Negative bloody stools, change in appetite, difficulty swallowing, reflux, hematemesis, melena stool, loose stool, constipation or other Genitourinary: Negative blood in urine, nocturia, pain with urination or other Musc Musculoskeletal: Negative body pain, back pain, neck pain or other Skin/Breast Skin/Breast: Negative dry skin, itching, rash, unusual bruising, breast lump or other Neuro Neurological: Negative restless legs, confusion, weakness or other (dizziness) Psych Psychocological: Negative abnormal sleep pattern, anxiety, thoughts of hurting self/others, hopelessness or other Lymph Lymphatic: Negative easy bleeding, easy bruising, swollen lymph nodes or other Exam Const Constitutional: Positive conversant, cooperative, in no acute respiratory distress, well developed, well nourished and good hygiene Head Head: Positive normocephalic and atraumatic; negative cyanosis of lips/distal nose Eyes Eye: Positive clear conjunctiva; negative nystagmus or scleral abnormality Ears Ear: Positive hearing normal and external ears normal; negative hard of hearing Nose Nose: Positive external nose normal and no nasal discharge; negative epistaxis Mouth Mouth: Positive dentures, posterior oropharynx is adequate and no lesions; negative post nasal drip, oral thrush present or malodorous breath Mallampati Score: II: Mallampati Score Neck Neck: Positive normal visual inspection, full ROM and trachea midline; negative lymphadenopathy, JVD or tender Chest Wall Chest: Positive normal inspection of the chest and symmetric chest movement; negative increased A/P diameter Resp lung sounds: Positive diminished, wheezes, wheeze present on forced exhalation, normal expiratory time and normal respiratory effort; negative rhonchi, rales or dullness to percussion Cardio Cardiac: Negative murmur, regular rate or regular rhythm GI GI: Positive normal to inspection Genitourinary: Positive deferred Musc Musculoskeletal: Positive steady gait and ROM normal Skin Pulmonary Skin Exam: Positive intact; negative rash or dermal atrophy Pulses Pulse: Yes pulses normal x4 extremities Extremities Extremities: Yes capillary refill normal, No clubbing, No cyanosis, No edema Neuro Neurologic: Yes conversant, Yes no focal neuro deficits, Yes normal concentration, Yes understands questions, Yes cooperative, Yes normal cognition, Yes normal coordination Lymph Lymphatic: No lymphadenopathy, No tenderness, No cervical adenopathy Psych Appearance: Positive grossly normal, eye contact and well kempt Mental Status: Positive mental status grossly normal Mood: Positive congruent mood Affect: Positive normal affect Coding Level of Care Code Off vis,est,level 4 Diagnoses Chronic obstructive pulmonary disease, unspecified COPD type J44.9 COPD type: unspecified COPD Shortness of breath R06.02 Acute on chronic diastolic CHF (congestive heart failure) I50.33 06/02/18 1325 <Electronically signed by Jenna ROY> Date Jenna PAYNEC Cosigner Signature: Date (if applicable) CC: Roc Martinez MD ECHOCARDIOGRAM COMPLETE Observed: 06/01/2018 Status: F Source: MOBILE 4:34 PM [facility] REPOSITORY [facility] Cardiovascular Services [address] [place] [id number] Echo Complete 05/28/18 0823 MR#: [id number] Acct: [id number] Name: ANGEL BRIGGS Rep #: [id number] : 1935 82 From: William Moser MD Attending Dr: Mic Khan MD Status: DIS IN Ordering Dr: Mason Martinez MD Date: 05/26/18 Location: [facility] Sex: M C Admitted: 05/26/18 Reason For Study: CHF Procedure This was a 2D Doppler, Color Flow transthoracic echocardiogram. Exam performed portable in patient room. Left Ventricle Normal LV size. Moderate concentric left ventricular hypertrophy. Left ventricular systolic function is normal. The estimated ejection fraction is 60 %. Diastolic function is indeterminate. No regional wall motion abnormalities noted. Right Ventricle Normal RV size. Normal systolic function. Atria The left atrium is moderately enlarged. The right atrium is mildly enlarged. Mitral Valve There is mild to moderate mitral annular calcification. Mild (1+) eccentric mitral valve insufficiency. Tricuspid Valve Normal tricuspid valve. Mild tricuspid valve insufficiency. Aortic Valve Normal aortic valve. Trisinus/trileaflet aortic valve. Mild (1+) aortic valve insufficiency. Pulmonic Valve Normal pulmonic valve. Great Vessels Normal aortic root. The pulmonary artery is normal size. Normal inferior vena cava. Pericardium/Pleural No pericardial effusion. MMode/2D Measurements AND Calculations LVIDd: 4.0 cm IVSd: 1.5 cm Ao root diam: 3.4 cm LVIDs: 3.0 cm LVPWd: 1.5 cm LA dimension: 4.7 cm RVDd: 3.7 cm FS: 24.3 % LAV(MOD-bp): 115.9 ml LA A4 area: 27.3 cm2 RA A4 area: 20.3 cm2 LAV(MOD-bp) Indexed: 52.2 ml/m2 LAV(MOD-sp2): 104.7 ml LAV(MOD-sp4): 104.8 ml Doppler Measurements AND Calculations MV E max miri: 122.9 cm/sec Ao V2 max: 140.8 cm/sec AI max miri: 380.2 cm/sec Ao max P.9 mmHg AI max P.9 mmHg AI dec slope: 234.6 cm/sec2 AI P1/2t: 474.6 msec LV V1 max: 92.5 cm/sec PA V2 max: 87.0 cm/sec TR max miri: 288.3 cm/sec LV V1 max P.4 mmHg TR max P.7 mmHg Interpretation Summary Normal LV size. Moderate concentric left ventricular hypertrophy. Left ventricular systolic function is normal. The estimated ejection fraction is 60 %. Diastolic function is indeterminate. The left atrium is moderately enlarged. Ordering Physician: Mason Martinez Referring Physician: Mic Khan Performed By: Nora Saeed, MISSYCS, RVT 06/01/183 Date William Moser MD CC: Mic Khan MD; Roc Martinez MD; Mason Martinez M.D. Date Dictated: 05/28/18822 Date Transcribed: 06/01/181632 Medical Physics Teacher: Signed 12 LEAD ELECTROCARDIOGRAM Observed: 05/31/2018 Status: F Source: MOBILE 4:03 PM [facility] REPOSITORY [facility] Cardiovascular Services [address] [place] [id number] 12 Lead EKG 05/27/18 0415 MR#: [id number] Acct: [id number] Name: ANGEL BRIGGS Rep #: [id number] : 1935 82 From: William Moser MD Attending Dr: Mic Khan MD Status: DIS IN Ordering Dr: Mason Martinez MD Date: 05/27/18 Location: [facility] Sex: M C Admitted: 05/26/18 Test Reason : AM EKG Blood Pressure : / mmHG Vent. Rate : 084 BPM Atrial Rate : 127 BPM P-R Int : 000 ms QRS Dur : 086 ms QT Int : 376 ms P-R-T Axes : 000 -44 019 degrees QTc Int : 444 ms Atrial fibrillation Left axis deviation Low voltage QRS Cannot rule out Anteroseptal infarct , age undetermined Abnormal ECG When compared with ECG of 26-MAY-2018 11:36, MANUAL COMPARISON REQUIRED, DATA IS UNCONFIRMED Confirmed by WILLIAM MOSER MD ([id number]), acquisitions editor QUINN BLAIR ([id number]) on 05/31/2018 4:03:36 PM Referred By: Mic Khan Confirmed By:WILLIAM MOSER MD 05/31/18 1603 Date William Moser MD CC: Mic Khan MD; Roc Martinez MD; Mason Martinez M.D. Signed 12 LEAD ELECTROCARDIOGRAM Observed: 05/31/2018 Status: F Source: MOBILE 3:52 PM [facility] REPOSITORY [facility] Cardiovascular Services [address] [place] [address] 12 Lead EKG 05/26/18 1136 MR#: [id number] Acct: [id number] Name: ANGEL BRIGGS Rep #: [id number] : 1935 82 From: William Moser MD Attending Dr: Mic Khan MD Status: DIS IN Ordering Dr: Franklyn Liu MD Date: 05/26/18 Location: [facility] Sex: M C Admitted: 05/26/18 Test Reason : SOB Blood Pressure : / mmHG Vent. Rate : 089 BPM Atrial Rate : 250 BPM P-R Int : 000 ms QRS Dur : 086 ms QT Int : 364 ms P-R-T Axes : 000 -62 041 degrees QTc Int : 442 ms Atrial fibrillation Left axis deviation Inferior infarct , age undetermined Anteroseptal infarct , age undetermined Abnormal ECG Confirmed by WILLIAM MOSER MD ([id number]), acquisitions editor QUINN BLAIR ([id number]) on 05/31/2018 3:52:40 PM Referred By: Mic Khan Confirmed By:WILLIAM MOSER MD 05/31/18 1552 Date William Moser MD CC: Mic Khan MD; Roc Martinez MD; Franklyn Liu MD Signed DISCHARGE SUMMARY Observed: 05/29/2018 Status: F Source: MOBILE 2:26 PM [facility] REPOSITORY [facility] Medical Records Department [address] [place] [address] Discharge Summary 05/29/18 1143 MR#: [id number] Acct: [id number] Name: ANGEL BRIGGS Rep #: [id number] : 1935 82 From: Pamela Conte [employer]TE[employer]-C PCP: Roc Martinez MD Status: DIS IN Y [id number] <Pamela Conte - Last Filed: 05/29/18 11:56> Discharge Date and Diagnosis Date of Admission: 05/26/18 Date of Discharge: 05/29/18 - Primary Discharge Diagnosis Active and Suspected Problems (Last Reviewed 05/07/18 @ 15:29 by Emilie Marie) 1. Acute on chronic diastolic CHF 2. Atrial fibrillation with RVR 3. Low-grade MDS 4. Acute kidney injury on chronic kidney disease stage III 5. Chronic COPD 6. Type 2 diabetes mellitus 7. Hypertension 8. BPH - Secondary Discharge Diagnosis Chronic Problems (Last Reviewed 05/07/18 @ 15:29 by Emilie Marie) Anemia (Chronic) Thrombocytopenia (Chronic) MDS (myelodysplastic syndrome), low grade (Chronic) HTN (hypertension) (Chronic) Hyperlipidemia (Chronic) Hypertension (Chronic) Hyperlipemia (Chronic) Type 2 diabetes mellitus (Chronic) COPD (chronic obstructive pulmonary disease) (Chronic) Hospital Course and Treatment Imaging Results: Diagnostic Data Chest X-Ray 05/26/18 11:57 IMPRESSION: Low lung volumes. Small right pleural effusion. No evidence of acute failure. Stable cardiomegaly. Electronically Signed: Juana Schulz MD at 13:02 EDT , Service support , Dr. Reynolds-Cardiology Dr. Connolly- Pulmonary Operations: None Procedures: None Summary of Care Provided: The patient is a 82 year old M admitted 05/26/2018 due to exertional dyspnea and lower extremity swelling. 1. Acute on chronic diastolic CHF-BNP on admission 282. Chest x-ray on admission with small right pleural effusion. Stress test December 2017 which was normal. LVEF 54%. Patient underwent cardiac catheterization with FFR due to ongoing dyspnea with exertion. Negative FFR of proximal LAD. Patient did not require intervention. Patient follows with Dr. Reynolds. Continue Lasix 40 mg p.o. daily at discharge. Continue lisinopril 2.5 mg daily. Patient to follow up with pulmonary medicine for evaluation for for elevated pulmonary pressures. He has follow-up with Dr. Connolly 06/17/2018. Patient will follow up with Dr. Reynolds in 1-2 weeks. 2. Atrial fibrillation with RVR-remains atrial fibrillation, rate controlled. Home metoprolol regimen increased to 25 mg twice daily. Amiodarone initiated during admission. Patient will take amiodarone 200 mg p.o. 3 times daily times 1 week then 200 mg p.o. twice daily times 2 weeks then 200 mg p.o. daily. Patient started on Eliquis 2.5 mg twice daily. Follow-up with cardiology in 1-2 weeks as noted above. 3. Low-grade MDS- Follows with Dr. Prah. Olivera. Oncology consulted given recommended anticoagulation. Okay with anticoagulation as long as platelets are above 50. Continue outpatient follow-up with oncology for routine monitoring of blood work. 4. Acute kidney injury on chronic kidney disease stage III- ROMAIN secondary to diuretics. Repeat BMP in 3 days. 5. Chronic COPD-no acute exacerbation. 6. Type 2 diabetes mellitus-continue home metformin regimen. 7. Hypertension-stable, continue home regimen including lisinopril, metoprolol, amio. 8. BPH-continue Flomax regimen. General: Alert, Oriented x3, Cooperative, No apparent distress HEENT: Atraumatic, PERRLA, EOMI, Normocephalic Neck: Supple, No JVD, Negative Carotid Bruits Lungs: Diminished, clear to auscultation Cardiovascular: Regular rate, Regular Rhythm, Normal S1, Normal S2, Murmur Abdomen: Bowel Sounds Present, Soft, Non Tender, Non-Distended Extremities: No clubbing, No cyanosis, Edema - Bilateral lower extremity Skin: No rashes, No breakdown Musculoskeletal: No Tenderness to Palpation of Joints or Extremities Neurological: Cranial nerves II-XII grossly intact, Neuro grossly intact Psych/Mental Status: Normal Affect, Appropriate Patient seen exam prior to discharge. Physical assessment as noted above. Patient stable for discharge home with the follow-up her conditions as noted above. This patient was seen by MANUELA Downey under the supervision of Dr. Khan. - Physical Exam Vital Signs Temp Pulse Resp BP Pulse Ox 98.1 F 78 14 103/51 L 95 05/29/18 09:05 05/29/18 11:00 05/29/18 09:05 05/29/18 09:05 05/29/18 09:05 Oxygen Flow Rate (L/min) 2 Oxygen Delivery Method Room Air Weight: 220 lb 0.341 oz Body Mass Index (BMI) 31.5 Intake and Output for Last 24 Hours Intake Total 2686 / 2686 880 / 880 60 / 60 Output Total 2195 / 2195 1125 / 1125 125 / 125 Balance 491 / 491 -245 / -245 -65 / -65 Laboratory Tests Past 24 Hrs WBC RBC Hgb Hct MCV MCH WBC 3.8 L RBC 3.32 L Hgb 9.3 L Hct 28.4 L MCV 85.5 MCH 28.0 MCHC 32.7 RDW 21.9 H POC Glucose POC Glucose 120 H 153 H 134 H POC Glucose 143 H Discharge Diet: Low fat/ Low Cholesterol Discharge Activity: Return to Normal Activity Call your doctor if you observe: Shortness of breath, Dizziness, Fainting spells, Swelling in the ankles, Chest pain Home Medications: Medications to take at Discharge apple cider vinegar 300 mg tablet 450 mg PO DAILY 09/15/17 multivitamin with iron tablet 1 tab PO QDAY 09/15/17 mecobalamin (vitamin B12) 1,000 mcg disintegrating tablet,sublingual 1,000 mcg SUBLINGUAL QDAY 09/25/17 albuterol sulfate HFA 90 mcg/actuation aerosol inhaler 1 puff INHALATION Q6H PRN #8.5 g 04/28/18 Guaifenesin [Guaifenesin ER] 1,200 mg PO Q12H 05/26/18 Lisinopril [Zestril] 2.5 mg PO QDAY 05/26/18 Metformin HCl [Glucophage] 1,000 mg PO DAILY 05/26/18 Simvastatin 20 mg PO QHS 05/26/18 Tamsulosin HCl [Flomax] 0.4 mg PO DAILY 05/26/18 Tiotropium [place] [Spiriva] 1 cap INHALATION DAILY 05/26/18 Amiodarone HCl [Cordarone] 200 mg PO TID #90 tablet 05/29/18 Apixaban [Eliquis] 2.5 mg PO BID #60 tablet 05/29/18 Furosemide [Lasix] 40 mg PO DAILY #30 tablet 05/29/18 Metoprolol(XL)Succ [Toprol Xl (Beta Daniel)] 25 mg PO BID #60 tablet 05/29/18 Following Prescrptions Were Given to Patient: Furosemide [Lasix] 40 mg PO DAILY #30 tablet Apixaban [Eliquis] 2.5 mg PO BID #60 tablet Metoprolol(XL)Succ [Toprol Xl (Beta Daniel)] 25 mg PO BID #60 tablet Amiodarone HCl [Cordarone] 200 mg PO TID #90 tablet Other Amb Orders: Basic Metabolic Profile (BMP) Time Frame: 3 Days, Location: Laboratory Primary Care Physician: Roc Martinez MD [Primary Care Provider] - Please follow up with your Primary Care Physician in: 1 Week Please Follow Up With: Marcelo Reynolds MD When: 1-2 Weeks Please Follow Up With: Jasmeet Connolly DO When: As scheduled, 06/17/18 Please Follow Up With: Yonny Woody MD When: As scheduled Disposition: Home Minutes spent on discharge:: 35 Patient Condition:: Stable Medical Necessity - Tobacco Use Smoking Status: Former smoker Tobacco Use: Cigarettes Meaningful Use Info Meaningful Use Diagnoses (Choose all that apply): CHF - CHF MARIA EUGENIA/ARB ordered at discharge?: Yes Documented LVEF (%): 54 <Mic Khan - Last Filed: 05/29/18 14:26> Discharge Date and Diagnosis - Secondary Discharge Diagnosis Chronic Problems (Last Reviewed 05/07/18 @ 15:29 by Emilie Marie) Anemia (Chronic) Thrombocytopenia (Chronic) MDS (myelodysplastic syndrome), low grade (Chronic) HTN (hypertension) (Chronic) Hyperlipidemia (Chronic) Hypertension (Chronic) Hyperlipemia (Chronic) Type 2 diabetes mellitus (Chronic) COPD (chronic obstructive pulmonary disease) (Chronic) Hospital Course and Treatment Summary of Care Provided: This patient was seen in conjunction with MANUELA Downey. I have independently interviewed and examined the patient and reviewed pertinent historical, laboratory, and other data. Please refer to MANUELA Downey note for details of this patient's presentation, findings, and recommendations. I have reviewed MANUELA Downey note and concur with documented findings. In brief, patient is a 82-year-old gentleman who was admitted with progressive shortness of breath and assessment of acute on chronic diastolic heart failure made admitted to a monitored bed for further management. Cardiology was consulted patient underwent left heart catheterization on 05/27/2018. Patient was found to have a 60% proximal LAD lesion with a reported negative FFR Assessment: 1. Acute on chronic diastolic CHF 2. Coronary artery disease left heart catheterization on 05/27/2018 demonstrated a 60% proximal LAD lesion with a reported negative FFR 3. Paroxysmal atrial fibrillation 4. Essential hypertension 5. Myelodysplastic syndrome 6. BPH 7. Chronic COPD- 8. Diabetes mellitus type 2 9. Pulmonary hypertension Hospital course: As elicited above by Pamela Conte Time spent on discharge; 40 minutes - Physical Exam Vital Signs Temp Pulse Resp BP Pulse Ox 98.1 F 78 14 103/51 L 95 05/29/18 09:05 05/29/18 11:00 05/29/18 09:05 05/29/18 09:05 05/29/18 09:05 Oxygen Flow Rate (L/min) 2 Oxygen Delivery Method Room Air Weight: 99.8 kg Body Mass Index (BMI) 31.5 Intake and Output for Last 24 Hours Intake Total 2686 / 2686 880 / 880 410 / 410 Output Total 2195 / 2195 1125 / 1125 125 / 125 Balance 491 / 491 -245 / -245 285 / 285 Laboratory Tests Past 24 Hrs WBC 3.8 L POC Glucose POC Glucose 120 H 153 H 134 H POC Glucose 143 H Code Visit Inpatient E AND M: [id number] Disch Hosp 05/29/18 1157 <Electronically signed by Pamela PAYNEC> Date Pamela PAYNEC 05/29/18 1426<Electronically signed by Mic Khan MD> Cosigner Signature (if applicable): Date Mic Khan MD CC: MANUELA Conte; Mic Khan MD; Roc Martinez MD Signed DISCHARGE INSTRUCTION Observed: 05/29/2018 Status: F Source: YOSI 11:43 AM [facility] REPOSITORY [facility] Medical Records Department [address] [place] [address] Instructions for Home/Discharge Instructions 05/29/18 1138 MR#: [id number] Acct: [id number] Name: ANGEL BRIGGS Rep #: [id number] : 1935 82 From: Pamela ROY PCP: Roc Martinez MD Status: ADM IN - Discharge Diagnoses Current Active Problems: Current Active and Chronic Problems (Last Reviewed 05/07/18 @ 15:29 by Emilie Marie) Acute on chronic diastolic CHF (congestive heart failure) (Acute) Anemia (Chronic) Thrombocytopenia (Chronic) You will use the following diet at home:: Cardiac Discharge Activity: Return to Normal Activity Call your doctor if you observe: Shortness of breath, Dizziness, Fainting spells, Swelling in the ankles, Chest pain Allergies/Adverse Reactions: Allergies codeine Adverse Reaction (Severe, Verified 05/26/18 11:33) Unknown Medications to take at Discharge apple cider vinegar 300 mg tablet 450 mg PO DAILY 09/15/17 multivitamin with iron tablet 1 tab PO QDAY 09/15/17 mecobalamin (vitamin B12) 1,000 mcg disintegrating tablet,sublingual 1,000 mcg SUBLINGUAL QDAY 09/25/17 albuterol sulfate HFA 90 mcg/actuation aerosol inhaler 1 puff INHALATION Q6H PRN #8.5 g 04/28/18 Guaifenesin [Guaifenesin ER] 1,200 mg PO Q12H 05/26/18 Lisinopril [Zestril] 2.5 mg PO QDAY 05/26/18 Metformin HCl [Glucophage] 1,000 mg PO DAILY 05/26/18 Simvastatin 20 mg PO QHS 05/26/18 Tamsulosin HCl [Flomax] 0.4 mg PO DAILY 05/26/18 Tiotropium [place] [Spiriva] 1 cap INHALATION DAILY 05/26/18 Amiodarone HCl [Cordarone] 200 mg PO TID #90 tablet 05/29/18 Apixaban [Eliquis] 2.5 mg PO BID #60 tablet 05/29/18 Furosemide [Lasix] 40 mg PO DAILY #30 tablet 05/29/18 Metoprolol(XL)Succ [Toprol Xl (Beta Daniel)] 25 mg PO BID #60 tablet 05/29/18 The following prescriptions were given: Furosemide [Lasix] 40 mg PO DAILY #30 tablet Apixaban [Eliquis] 2.5 mg PO BID #60 tablet Metoprolol(XL)Succ [Toprol Xl (Beta Daniel)] 25 mg PO BID #60 tablet Amiodarone HCl [Cordarone] 200 mg PO TID #90 tablet Primary Care Physician: Roc Martinez MD [Primary Care Provider] - Please follow up with your Primary Care Physician in: 1 Week Test Results: Test results from this visit will be discussed in further detail at your follow-up appointment, if applicable. Please Follow Up With: Marcelo Reynolds MD When: 1-2 Weeks Please Follow Up With: Jasmeet Connolly DO When: As scheduled, 06/17/18 Please Follow Up With: Yonny Woody MD When: As scheduled Proposed Discharge Date: 05/29/18 05/29/18 1143 <Electronically signed by Pamela ROY> Date Pamela ROY CC: Shawn Dickson MD; Jasmeet Connolly D.O.; Roc Martinez MD; Yonny Woody MD BEDSIDE GLUCOSE Collected: 05/29/2018 Status: F Source: YOSI 11:18 AM [facility] REPOSITORY TYPE CODE TESTS RESULT OUT OF REFERENCE UNITS RANGE LAB L501.080 70-110 mg/dL High BEDSIDE GLU 120 Result Comment: MANAGEMENT OF PATIENT CARE PER NURSING PROTOCOL Performed By: #### L501.080 #### [facility] Laboratory Point of Care [facility] [place] [address] CONSULTATION Observed: 05/29/2018 Status: F Source: MOBILE 7:43 AM [facility] REPOSITORY [facility] Medical Records Department [address] [place] [address] Consultation 05/28/18 0754 MR#: [id number] Acct: [id number] Name: ANGEL BRIGGS Rep #: [id number] : 1935 82 From: Jasmeet Connolly DO PCP: Roc Martinez MD Status: ADM IN Y Location: [place] [address]-1 Reason for Consult Date of Consultation: 05/28/18 Reason for Consultation: COPD exacerbation History of Present Illness: The patient is an 82-year-old male, with a history as outlined below, who initially presented to the emergency department on May 26 with complaints of dyspnea and lower externally edema. Patient has a history of MDS diagnosed via bone marrow biopsy in May 2016. He has been followed periodically by Dr. Chavarria on an outpatient basis. She has remained clinically stable without indication for therapy. The patient has a [id number]-lpim smoking history, having quit completely 30 years ago. 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 Although he does not have an established diagnosis of COPD, as he has never had PFTs completed, he is currently prescribed both Spiriva and as needed albuterol in his home environment. He states that his reliance on his short acting beta agonist is quite infrequent. He does not utilize supplemental oxygen at his baseline. On presentation to the emergency department, the patient was noted to be in new onset atrial fibrillation. He is currently rate controlled. He is being medically managed for his underlying coronary artery disease and has been diuresed due to established heart failure with preserved ejection fraction. At the current time, the patient denies the presence of shortness of breath. He is maintaining appropriate oxygen saturations on room air. A plain film chest x-ray obtained on presentation to the hospital revealed cardiomegaly with a small right pleural effusion. Past Medical History Past Medical History (Chronic Problems): Chronic Problems (Last Reviewed 05/07/18 @ 15:29 by Emilie Marie) Anemia (Chronic) Thrombocytopenia (Chronic) MDS (myelodysplastic syndrome), low grade (Chronic) HTN (hypertension) (Chronic) Hyperlipidemia (Chronic) Hypertension (Chronic) Hyperlipemia (Chronic) Type 2 diabetes mellitus (Chronic) COPD (chronic obstructive pulmonary disease) (Chronic) Medical History: Medical History (Last Reviewed 05/07/18 @ 15:29 by Emilie Marie) Premature atrial contractions (Acute) I49.1 MDS (myelodysplastic syndrome), low grade (Chronic) D46.20 Paroxysmal atrial tachycardia (Acute) I47.1 Paroxysmal ventricular tachycardia (Acute) I47.2 Premature ventricular contraction (Acute) I49.3 Palpitations (Acute) R00.2 HTN (hypertension) (Chronic) I10 Hyperlipidemia (Chronic) E78.5 Hypertension (Chronic) I10 Hyperlipemia (Chronic) E78.5 Type 2 diabetes mellitus (Chronic) E11.9 COPD (chronic obstructive pulmonary disease) (Chronic) J44.9 Bilateral hip pain M25.551, M25.552 Contusion of right knee S80.01XA Inguinal hernia K40.90 Low back pain M54.5 Prepatellar bursitis, right knee M70.41 Thrombocytopenia D69.6 Arthritis M19.90 BPH (benign prostatic hyperplasia) N40.0 BPH (benign prostatic hyperplasia) N40.0 MDS (myelodysplastic syndrome), low grade D46.20 Allergies codeine Adverse Reaction (Severe, Verified 05/26/18 11:33) Unknown Home Medications: Ambulatory Orders Medication Instructions Recorded apple cider vinegar 300 mg tablet 450 mg PO DAILY 09/15/17 multivitamin with iron tablet 1 tab PO QDAY 09/15/17 Surgical History: Surgical History (Last Reviewed 05/07/18 @ 15:29 by Emilie Marie) H/O hernia repair Z98.890, Z87.19 History of left hip replacement Z96.642 History of left hip replacement Z96.642 History of hand surgery Z98.890 Lt Smoking Status: Former smoker Tobacco Use: Cigarettes Review of Systems Constitutional: Denies: Chills, Fever Eyes: Denies: Blurred vision, Double vision HEENT: Denies: Head Aches, Sinus Congestion, Sinus Drainage Cardiovascular: Reports: Edema. Denies: Chest Pain, Palpitations Respiratory: Reports: Shortness of Breath. Denies: Cough, Sputum production Gastrointestinal: Denies: Abdominal Pain, Nausea, Vomiting Genitourinary: Denies: Dysuria Musculoskeletal: Denies: Joint Pain, Joint Tenderness Skin: Denies: Rash, Wounds Neurological: Denies: Numbness, Tingling, Focal weakness Psychiatric: Denies: Anxiety, Depression, Homicidal Ideations, Suicidal Ideations Hematologic/ Lymphatic: Reports: Adenopathy Patient Problems: Active and Suspected Problems (Last Reviewed 05/07/18 @ 15:29 by Emilie Marie) Acute on chronic diastolic CHF (congestive heart failure) (Acute) Objective: The patient's most recent lab work, culture data and imaging studies have all been personally reviewed. - Physical Exam General: Alert, Oriented x3, Cooperative, No apparent distress, - - Sitting in bedside recliner. HEENT: Atraumatic, PERRLA, Normocephalic Oral: Moist Mucosa, No Gingival or Mucosal Lesions/ Ulcerations Neck: Supple, No Nodes, Trachea Midline Lungs: Diminished, Rales, - - Very faint end expiratory wheeze Cardiovascular: Normal S1, Normal S2, No murmurs, Irregular Rate Abdomen: Bowel Sounds Present, Soft, Non Tender Extremities: No clubbing, No cyanosis, Edema Skin: No breakdown Musculoskeletal: No Tenderness to Palpation of Joints or Extremities Lymphatic: No Cervical, Supraclavicular, or Inguinal Adenopathy Neurological: Cranial nerves II-XII grossly intact, Neuro grossly intact Psych/Mental Status: Alert and oriented to time, place, person, mood and affect Vital Signs Temp Pulse Resp BP Pulse Ox 98.0 F 74 23 H 108/60 94 05/28/18 03:03 05/28/18 07:15 05/28/18 03:03 05/28/18 03:03 05/28/18 03:03 Oxygen Flow Rate (L/min) 2 Oxygen Delivery Method Room Air Weight: 220 lb 10.923 oz Body Mass Index (BMI) 31.5 Intake and Output for Last 24 Hours Intake Total 240 / 240 2686 / 2686 340 / 340 Output Total 1200 / 1200 2195 / 2195 375 / 375 Balance -960 / -960 491 / 491 -35 / -35 Laboratory Tests Past 24 Hrs WBC RBC Hgb Hct MCV MCH MCHC RDW RDW Differential Plt Count Immature Gran % (Auto) WBC RBC Hgb Hct MCV MCH MCHC RDW RDW Differential WBC RBC Hgb Hct MCV MCH MCHC POC Glucose POC Glucose 120 H 104 156 H Clinical Impression(s) from Imaging Studies Chest X-Ray 05/26/18 11:57 IMPRESSION: Low lung volumes. Small right pleural effusion. No evidence of acute failure. Stable cardiomegaly. Electronically Signed: Juana Schulz MD at 13:02 EDT , Service support , Assessment/Plan All Active Problems (Last Reviewed 05/07/18 @ 15:29 by Emilie Marie) Acute on chronic diastolic CHF (congestive heart failure) (Acute) Pain on swallowing (Acute) Premature atrial contractions (Acute) Hypotension (Acute) Paroxysmal atrial tachycardia (Acute) Paroxysmal ventricular tachycardia (Acute) Premature ventricular contraction (Acute) Palpitations (Acute) RECOMMENDATIONS: 1. We will place orders for blood tests for vasculitis/rheumatologic etiologies as part of his secondary PH workup. These test results can be followed up upon as an outpatient. 2. No additional inpatient testing is required from my perspective at this time. 3. Continue current diuretic regimen, given underlying pulmonary hypertension. 4. Please ensure that the patient follows up in the pulmonary medicine clinic so that baseline PFTs can be obtained. 5. Perform walking oximetry study prior to consideration for discharge from the hospital. IMPRESSIONS: 1. Acute hypoxic respiratory insufficiency, now resolved The patient initially had a supplemental oxygen requirement, which was likely secondary to a combination of his new onset atrial fibrillation, decompensated heart failure, underlying pulmonary hypertension and presumptive COPD. He is currently on appropriate medical management for his underlying coronary disease and is being diuresed accordingly. He has been weaned to room air and is maintaining appropriate oxygen saturations. He does have significantly elevated pulmonary pressures noted on right heart catheterization, which could be secondary to a multitude of different contributing etiologies. The patient does have underlying heart failure and presumptive COPD. He will require an additional secondary pulmonary hypertension workup, which can be completed on an outpatient basis. I would first like to obtain baseline pulmonary function testing on him to first confirm or refute a diagnosis of COPD. In the interim, I will place an order to start a preliminary vasculitis/rheumatologic workup, which can be followed up upon as an outpatient. Recommend performing a walking oximetry study prior to consideration for discharge from the hospital. The patient states that he already has an established appointment with me to be seen in the pulmonary medicine clinic on June 17. 2. Presumptive COPD of unknown severity As noted above, recommend that the patient follow-up as scheduled so that baseline PFTs can be obtained. In the interim, I recommended that the patient remain on Spiriva and as needed albuterol. 3. Coronary artery disease/heart failure with preserved ejection fraction/pulmonary hypertension Continue current medical management per cardiology recommendations. We will continue workup on an outpatient basis for secondary pulmonary hypertension. 4. New onset atrial fibrillation Continue current rate control strategy, with plans for eventual anticoagulation initiation. This note was generated with Connect HQation software. It may contain incorrect words, spelling, and punctuation that were not noted in checking the note before signing. DISPOSITION: Given that the patient has no active pulmonary needs that need to be addressed during this hospital admission, will sign off. The patient will follow up with me in the pulmonary medicine clinic, as previously scheduled, for additional testing and workup of his underlying possible obstructive lung disease and pulmonary hypertension. Code Visit Inpatient E AND M: [id number] Init Hosp L3 05/29/18 0743 <Electronically signed by Jasmeet Connolly DO> Date Jasmeet Connolly DO Cosigner Signature (if applicable): Date CC: Shawn Dickson MD; Mic Khan MD; Jasmeet Connolly D.O.; Roc Martinez MD; Yonny Woody MD Signed CBC W/DIFF, AUTOMATED Collected: 05/29/2018 Status: F Source: YOSI 7:20 AM [facility] REPOSITORY TYPE CODE TESTS RESULT OUT OF RANGE REFERENCE UNITS LAB L100.1000 4.4-11.0 K/mm3 Low 3.8 WBC LAB L100.1200 4.6-6.2 M/mm3 Low 3.32 RBC LAB L100.1300 13.0-16.5 g/dl Low 9.3 HGB LAB L100.1400 40-54 % Low 28.4 HCT LAB L100.1500 80-94 fL 85.5 Normal MCV LAB L100.1600 27.0-32.0 pg 28.0 Normal MCH LAB L100.1700 32-36 g/gl 32.7 Normal MCHC LAB L100.1810 11.6-14.6 % High 21.9 RDW CV LAB L100.1820 35.1-43.9 fl High 62.8 RDW SD LAB L100.1900 150-450 K/mm3 Low 68 PLT LAB L100.2000 6.2-12.0 fl Test Normal MPV not performed LAB L100.2100 47-70 % High 72.7 NEUT% LAB L100.2200 19-41 % Low 17.0 LY% LAB L100.2300 0-10 % 8.4 Normal MONO% LAB L100.2400 0-5 % 0.8 Normal EO% LAB L100.2500 0-1 % 0.3 Normal BASO% LAB L100.2550 0.0-0.9 % 0.800 Normal IM GRAN % Result Comment: IG% - Immature Granulocytes (promyelocytes, myelocytes and metamyelocytes) > 1% indicates that a LEFT SHIFT is Present. LAB L100.2620 2.0-7.7 X10 3/uL Absolute Neut Normal 2.8 LAB L100.2720 0.83-4.51 X10 3/ul Low Absolute Lymph 0.65 LAB L100.5500 ADEQ PLT EST Normal MKD DEC LAB L100.7300 ANISO Normal 1+ LAB L100.7600 HYPOCHROMASIA Normal 1+ LAB L100.8200 OVALOCYTE Normal 1+ LAB L100.8400 SCHISTOCYTES Normal 1+ Performed By: #### L100.0100 #### [facility] [address] [place], [place], [address] BASIC METABOLIC Collected: 05/29/2018 Status: F Source: YOSI PROFILE ([facility]) 7:20 AM [facility] REPOSITORY TYPE CODE TESTS RESULT OUT OF RANGE REFERENCE UNITS LAB L501.0100 74-106 mg/dL High GLU 126 Result Comment: Fasting Glucose result greater than or equal to 126 mg/dL suggests DIABETES MELLITUS per A.D.A. criteria. Please note revised GLUCOSE reference range effective 2017. LAB L501.1000 7-18 mg/dL High BUN 24 LAB L501.1100 0.70-1.30 mg/dL High CREAT,SERUM 1.73 Result Comment: The validity of the calculated GFR AND GFRAA in patients over 70 years has not been determined. Clinical correlation is essential. LAB L501.1110 >60 mL/min Low EST GFR 40 Result Comment: Non- GFR Calc LAB L501.1115 >60 mL/min Low EST GFR - AA 49 Result Comment: GFR Calc LAB L501.1255 ml/min Normal Estimated CRCL 35.67 LAB L501.1300 10-20 RATIO Normal BUN/CRE 13.9 LAB L501.2200 8.5-10 mg/dL Low .1 CA 8.4 LAB L501.5300 136-14 mmol/L Normal 5 NA 139 LAB L501.5600 3.5-5. mmol/L Normal 1 K 4.0 LAB L501.5900 98-107 mmol/L Normal CL 105 LAB L501.6100 21.0-3 mmol/L Normal 2.0 CO2 28.0 LAB L501.6200 5-15 Normal GAP 6 Performed By: #### L500.2500 #### [facility] [address] [facility] [address] BEDSIDE GLUCOSE Collected: 05/29/2018 Status: F Source: YOSI 6:48 AM [facility] REPOSITORY TYPE CODE TESTS RESULT OUT OF REFERENCE UNITS RANGE LAB L501.080 70-110 mg/dL High BEDSIDE GLU 153 Result Comment: MANAGEMENT OF PATIENT CARE PER NURSING PROTOCOL Performed By: #### L501.080 #### [facility] Point of Care [address] [place] [address] BEDSIDE GLUCOSE Collected: 05/28/2018 Status: F Source: YOSI 9:09 PM [facility] REPOSITORY TYPE CODE TESTS RESULT OUT OF REFERENCE UNITS RANGE LAB L501.080 70-110 mg/dL High BEDSIDE GLU 134 Result Comment: MANAGEMENT OF PATIENT CARE PER NURSING PROTOCOL Performed By: #### L501.080 #### [facility] Point of Care [address] [place] [address] BEDSIDE GLUCOSE Collected: 05/28/2018 Status: F Source: YOSI 5:18 PM [facility] REPOSITORY TYPE CODE TESTS RESULT OUT OF REFERENCE UNITS RANGE LAB L501.080 70-110 mg/dL High BEDSIDE GLU 143 Result Comment: MANAGEMENT OF PATIENT CARE PER NURSING PROTOCOL Performed By: #### L501.080 #### [facility] [place] [address] TIFFANI W/ REFLEX MULT Collected: 05/28/2018 Status: F Source: YOSI CONFIRM 1:36 PM [facility] REPOSITORY TYPE CODE TESTS RESULT OUT OF RANGE REFERENCE UNITS LAB L3100.5475 Negative High Positive TIFFANI-DIRECT LAB L3100.5500 0-9 IU/mL <1 Normal dsDNA AB Result Comment: Negative <5 Equivocal 5 - 9 Positive >9 LAB L3100.9200 0.0-0.9 AI Anti-SS-A Normal < 0.2 LAB L3100.9300 0.0-0.9 AI Anti-SS-B Normal < 0.2 LAB L3410.0427 0.0-0.9 AI ANTICHROMATIN Normal <0.2 LAB L3410.0500 0.0-0.9 AI ANTI-DEVORAH Normal <0.2 LAB L3410.0700 0.0-0.9 AI ANTISCLER Normal <0.2 LAB L3410.1200 0.0-0.9 AI WOMEN NURSE Ab High 5.6 LAB L3410.1300 0.0-0.9 AI VALERA Ab Normal <0.2 LAB L3410.4010 0.0-0.9 AI ANTI-CENT B Normal <0.2 LAB L3410.4150 . COMMENT Normal Comment Result Comment: Autoantibody Disease Association Condition Frequency --------- Antinuclear Antibody, SLE, mixed connective Direct (TIFFANI-D) tissue diseases --------- dsDNA SLE 40 - 60% --------- Chromatin Drug induced SLE 90% SLE 48 - 97% --------- SSA (Ro) SLE 25 - 35% Sjogren's Syndrome 40 - 70% Lupus 100% --------- SSB (La) SLE 10% Sjogren's Syndrome 30% --------- Sm (anti-Valera) SLE 15 - 30% --------- WOMEN NURSE Mixed Connective Tissue Disease 95% (U1 nRNP, SLE 30 - 50% anti-ribonucleoprotein) Polymyositis and/or Dermatomyositis 20% --------- Scl-70 (antiDNA Scleroderma (diffuse) 20 - 35% topoisomerase) Crest 13% --------- Devorah-1 Polymyositis and/or Dermatomyositis 20 - 40% --------- Centromere B Scleroderma - Crest variant 80% Performed at: [facility] [id number] Bead Machine Operator: Nico Amezcua PhD, Phone: [phone] Performed By: #### L3100.5421 #### [facility] (refer to report for specific site) refer to report for address and phone number ANCA Collected: 05/28/2018 Status: F Source: MOBILE 1:36 [facility] REPOSITORY TYPE CODE TESTS RESULT OUT OF RANGE REFERENCE UNITS LAB L3300.1225 Neg:<1:20 titer CYTOPLASMIC Normal Ab <1:20 LAB L3300.1250 Neg:<1:20 titer PERINUCLEAR Normal Ab <1:20 Result Comment: The presence of positive fluorescence exhibiting P-ANCA or C-ANCA patterns alone is not specific for the diagnosis of Reynaldo's Granulomatosis (WG) or microscopic polyangiitis. Decisions about treatment should not be based solely on ANCA IFA results. The International ANCA Group Consensus recommends follow up testing of positive sera with both OK- 3 and MPO-ANCA enzyme immunoassays. As many as 5% serum samples are positive only by EIA. Ref. AM J Clin Pathol 1999;111:507-513. LAB L3300.1285 Neg:<1:20 titer High Atypical pANCA 1:160 Result Comment: The atypical pANCA pattern has been observed in a significant percentage of patients with ulcerative colitis, primary sclerosing cholangitis and autoimmune hepatitis. Performed By: #### L3300.1200, L4600.0100 #### [facility] (refer to report for specific site) refer to report for address and phone number CCP IGG ANTIBODIES Collected: 05/28/2018 Status: F Source: YOSI 1:36 PM [facility] REPOSITORY TYPE CODE TESTS RESULT OUT OF RANGE REFERENCE UNITS LAB L4600.0100 0-19 units Normal ANTI-CCP 4 [id number] Result Comment: Negative <20 Weak positive 20 - 39 Moderate positive 40 - 59 Strong positive >59 Performed at: [facility] [id number] Bead Machine Operator: Nico Amezcua PhD, Phone: [phone] Performed at: [facility] [id number] Bead Machine Operator: Stefan Tillman MD, Phone: [phone] Performed By: #### L3300.1200, L4600.0100 #### [facility] (refer to report for specific site) refer to report for address and phone number BEDSIDE GLUCOSE Collected: 05/28/2018 Status: F Source: YOSI 11:02 AM [facility] REPOSITORY TYPE CODE TESTS RESULT OUT OF REFERENCE UNITS RANGE LAB L501.080 70-110 mg/dL High BEDSIDE GLU 191 Result Comment: MANAGEMENT OF PATIENT CARE PER NURSING PROTOCOL Performed By: #### L501.080 #### [facility] Point of Care [address] [place], [place] [id number] BEDSIDE GLUCOSE Collected: 05/28/2018 Status: F Source: YOSI 6:50 AM [facility] REPOSITORY TYPE CODE TESTS RESULT OUT OF REFERENCE UNITS RANGE LAB L501.080 70-110 mg/dL High BEDSIDE GLU 120 Result Comment: MANAGEMENT OF PATIENT CARE PER NURSING PROTOCOL Performed By: #### L501.080 #### [facility] Point of Care [address] [facility] [place] [address] BASIC METABOLIC Collected: 05/28/2018 Status: F Source: YOSI PROFILE (BMP) 6:37 AM [facility] REPOSITORY TYPE CODE TESTS RESULT OUT OF RANGE REFERENCE UNITS LAB L501.0100 74-106 mg/dL High GLU 124 Result Comment: Fasting Glucose result from 100 to 125 mg/dL suggests IMPAIRED HOMEOSTASIS per A.D.A. criteria. Please note revised GLUCOSE reference range effective 2017. LAB L501.1000 7-18 mg/dL Normal BUN 17 LAB L501.1100 0.70-1.30 mg/dL High CREAT,SERUM 1.46 Result Comment: The validity of the calculated GFR AND GFRAA in patients over 70 years has not been determined. Clinical correlation is essential. LAB L501.1110 >60 mL/min Low EST GFR 49 Result Comment: Non- GFR Calc LAB L501.1115 >60 mL/min Normal EST GFR - AA 60 Result Comment: GFR Calc LAB L501.1255 ml/min Normal Estimated CRCL 42.26 LAB L501.1300 10-20 RATIO Normal BUN/CRE 11.6 LAB L501.2200 8.5-10 mg/dL Normal .1 CA 8.5 LAB L501.5300 136-14 mmol/L Normal 5 NA 140 LAB L501.5600 3.5-5. mmol/L Normal 1 K 4.2 LAB L501.5900 98-107 mmol/L Normal CL 104 LAB L501.6100 21.0-3 mmol/L Normal 2.0 CO2 28.0 LAB L501.6200 5-15 Normal GAP 8 Performed By: #### L500.2500 #### [facility] [address] [place], [address] MAGNESIUM Collected: 05/28/2018 Status: F Source: MOBILE 6:37 AM [facility] REPOSITORY TYPE CODE TESTS RESULT OUT OF RANGE REFERENCE UNITS LAB L501.5200 1.6-2.6 mg/dL Normal MG 1.9 Performed By: #### L501.5200 #### [facility] [address] [place], [address] CBC W/DIFF, AUTOMATED Collected: 05/28/2018 Status: C Source: MOBILE 6:37 AM [facility] REPOSITORY TYPE CODE TESTS RESULT OUT OF RANGE REFERENCE UNITS LAB L100.1000 4.4-11.0 K/mm3 Low WBC 3.5 LAB L100.1200 4.6-6.2 M/mm3 Low RBC 3.42 LAB L100.1300 13.0-16.5 g/dl Low HGB 9.7 LAB L100.1400 40-54 % Low HCT 29.4 LAB L100.1500 80-94 fL Normal MCV 86.0 LAB L100.1600 27.0-32.0 pg Normal MCH 28.4 LAB L100.1700 32-36 g/gl Normal MCHC 33.0 LAB L100.1810 11.6-14.6 % High RDW CV 22.1 LAB L100.1820 35.1-43.9 fl High RDW SD 62.2 LAB L100.1900 150-450 K/mm3 Low PLT 65 LAB L100.2100 47-70 % High NEUT% 71.1 LAB L100.2200 19-41 % Normal LY% 20.6 LAB L100.2300 0-10 % Normal MONO% 7.4 LAB L100.2400 0-5 % Normal EO% 0.3 LAB L100.2500 0-1 % Normal BASO% 0.0 LAB L100.2550 0.0-0.9 % Normal IM GRAN % 0.600 Result Comment: IG% - Immature Granulocytes (promyelocytes, myelocytes and metamyelocytes) > 1% indicates that a LEFT SHIFT is Present. LAB L100.2620 2.0-7.7 X10 3/uL Absolute Normal Neut 2.5 LAB L100.2720 0.83-4.51 X10 3/ul Low Absolute Lymph 0.72 LAB L100.5500 ADEQ PLT EST Normal MKD DEC LAB L100.7300 ANISO Normal 3+ LAB L100.8400 High SCHISTOCYTES 2+ LAB L100.9900 PATH REV Normal Reviewed Result Comment: Pancytopenia. Rare immature cells consistent with blasts are noted. Clinical correlation necessary. As per patient's EMR, the patient has history of MDS. Colby Anderson M.D. 05/28/18 This case was reviewed with Dr. Winkler who concurs with the above diagnosis. AMENDED REPORT 05/28/18 1116 PATH REV previously reported as: December Performed By: #### L100.0100 #### [facility] [address] [place], [address] RHEUMATOID FACTOR Collected: 05/28/2018 Status: F Source: YOSI 6:37 AM [facility] REPOSITORY TYPE CODE TESTS RESULT OUT OF RANGE REFERENCE UNITS LAB L505.7010 <15 IU/mL Normal RHEUMATOID FAC < 10.0 Performed By: #### L505.7010 #### [facility] [address] [place], [address] BEDSIDE GLUCOSE Collected: 05/27/2018 Status: F Source: MOBILE 9:00 PM [facility] REPOSITORY TYPE CODE TESTS RESULT OUT OF RANGE REFERENCE UNITS LAB L501.080 70-110 mg/dL Normal BEDSIDE GLU 104 Result Comment: MANAGEMENT OF PATIENT CARE PER NURSING PROTOCOL Performed By: #### L501.080 #### [facility] Point of Care [address] [place] [address] BEDSIDE GLUCOSE Collected: 05/27/2018 Status: F Source: MOBILE 4:39 PM [facility] REPOSITORY TYPE CODE TESTS RESULT OUT OF REFERENCE UNITS RANGE LAB L501.080 70-110 mg/dL High BEDSIDE GLU 156 Result Comment: MANAGEMENT OF PATIENT CARE PER NURSING PROTOCOL Performed By: #### L501.080 #### [facility] Point of Care [address] [place] [address] CONSULTATION Observed: 05/27/2018 Status: F Source: MOBILE 4:22 PM [facility] REPOSITORY [facility] Medical Records Department [address] [place] [address] Consultation 05/27/18 1533 MR#: [id number] Acct: [id number] Name: ANGEL BRIGSG Rep #: [id number] : 1935 82 From: Yonny Woody MD PCP: Roc Martinez MD Status: ADM IN Location: [address] - Problem List (1) MDS (myelodysplastic syndrome), low grade Status: Chronic (2) Thrombocytopenia Status: Chronic (3) Anemia Status: Chronic Consult Referring Physician: Dr. Dickson Consult Results: MDS Subjective Date of Service:: 05/27/18 Chief Complaint: Dyspnea and lower extremities edema History of Present Illness: Patient is an 82-year-old gentleman admitted with a new onset congestive heart failure. Hematology consult requested for clearance to use antiplatelet agents (cardiology recommendation is long-term aspirin and 1 year of Plavix). From the hematology consult aspect patient has been under the care of Dr. Chavarria for a very low risk MDS with a chronic slowly progressive anemia and moderately severe thrombocytopenia. He has not required any blood product transfusion nor active treatment for his MDS but is on watchful expectancy. Past Medical History: Chronic Problems (Last Reviewed 05/07/18 @ 15:29 by Emilie Marie) Anemia (Chronic) Thrombocytopenia (Chronic) MDS (myelodysplastic syndrome), low grade (Chronic) HTN (hypertension) (Chronic) Hyperlipidemia (Chronic) Hypertension (Chronic) Hyperlipemia (Chronic) Type 2 diabetes mellitus (Chronic) COPD (chronic obstructive pulmonary disease) (Chronic) Past Medical/Surgical History: Past Medical History - Most Recent Inpatient Visit Past Medical History Start: 05/26/18 15:18 Text: Status: Complete Freq: ONCE Protocol: Document 05/26/18 15:18 JFelicita (Rec: 05/26/18 15:27 [facility] [id number]) BMI Required to complete PMH What is Patient's BMI 31.5 Past Medical History Unable History Recalled No Query Text:Pt Unable/Family Not Present Neurologic Medical History Hx Stroke/TIA No Hx Dementia/Alzheimer's No Hx Parkinson's Disease No Hx Seizures No Hx Multiple Sclerosis No Hx Migraines No Cardiac Medical History VTE Present on Admission No Hx of Deep Vein Thrombosis/VTE/PE No Hx Hypertension Yes Hx Chest Pain/Angina No Hx Heart Attack No Hx Cardiac Surgery/Stents/Etc. No Hx Heart Failure Yes Hx Pacemaker/AICD No Hx Irregular Heartbeat and/or Afib Yes Hx Anticoagulant Therapy Yes Query Text:(Coumadin, Aspirin, Plavix, Xarelto, etc.) Hx Pain in Legs when Walking/Leg Cramps No Respiratory Medical History Hx COPD Yes Hx Emphysema Yes Hx Smoking Yes Smoking Status Former smoker Tobacco Use Cigarettes Years Smoking 20 Packs Smoked per Day 1 Hx Smoking Cessation Date 1984 Hx Smoking Cessation Counseling No Hx Smoking Exposure No Hx Tobacco Use in last 12 months No Hx of Pipe Smoking No Hx of Cigar Smoking No Hx Sleep Apnea No Do you snore loudly (louder than talking No or can be heard through closed doors)? Do you often feel tired/ fatigued/ No sleepy during daytime? Has anyone observed you stop breathing No during sleep? STOP Results Negative GI Medical History Hx Ulcer No Hx Hepatitis No Hx Cirrhosis No Hx GI Bleed No Hx Unplanned Weight Loss No Genitourinary Medical History Indwelling Catheter in Place on Arrival/ No Admission Hx Renal Disease No Hx Dialysis No Musculoskeletal History Hx Arthritis Yes Hx Rheumatoid Arthritis No Endocrine Medical History Hx Diabetes Yes Hx Thyroid Disease No Hematologic Medical History Hx of Blood Transfusion No Hx of Transfusion in last 3 Months No Ever experience any problems with No transfusion(s)? Hx of Preganancy in last 3 Months N/A Nurse Filling Out Transfusion AND JLAMP Questions: Date: 05/26/18 Time: 15:26 Psycho/Social Medical History Hx Depression No Hx Anxiety No Hx Behavior Disorder No Hx Alcohol Use No Hx Substance Use No Other Medical History Hx Blood Disorders No Hx Anemia No Hx Cancer No Hx Drug Resistant Organism No Wound/Pressure Injury Present on Arrival No /Admission Query Text:If yes, chart assessment in Shift/Clinical Findings Central Line/PICC/VAD Present on Arrival No /Admission Antibiotics within last 7 days? No Methicillin Resistant Staphylococcus aureus Screening Active MRSA No Risk for Readmission Number of Risk Factors 4 At Risk for Readmission Patient is At Risk For Readmission Patient is eligible for Call Back Y Past Medical History (Last Reviewed 05/07/18 @ 15:29 by Emilie Marie) Premature atrial contractions (Acute) MDS (myelodysplastic syndrome), low grade (Chronic) Paroxysmal atrial tachycardia (Acute) Paroxysmal ventricular tachycardia (Acute) Premature ventricular contraction (Acute) Palpitations (Acute) HTN (hypertension) (Chronic) Hyperlipidemia (Chronic) Hypertension (Chronic) Hyperlipemia (Chronic) Type 2 diabetes mellitus (Chronic) COPD (chronic obstructive pulmonary disease) (Chronic) Bilateral hip pain (Acute) Contusion of right knee (Acute) Inguinal hernia (Acute) Low back pain (Acute) Prepatellar bursitis, right knee (Acute) Thrombocytopenia (Acute) Arthritis (Chronic) BPH (benign prostatic hyperplasia) (Chronic) BPH (benign prostatic hyperplasia) (Chronic) MDS (myelodysplastic syndrome), low grade (Chronic) Past Surgical History (Last Reviewed 05/07/18 @ 15:29 by Emilie Marie) H/O hernia repair (Chronic) 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 Denies: Chest pain, Palpitations, Orthopnea, PND, Shortness of breath Respiratory: Reports: Shortness of Breath, Shortness of breath upon exertion. Denies: Cough, Hemoptysis, Wheezing Gastrointestinal:: Reports: - - Patient reports chronic constipation and dark stools. Could not clearly distinguish between normal colored but dark stools or melanotic stools.. Denies: Abdominal pain, Nausea, Vomiting, Diarrhea, Constipation, Hematochezia Genitourinary: Reports: Urinary frequency, Nocturia. Denies: Dysuria, Hematuria, Flank pain Musculoskeletal:: Denies: Back pain, Myalgia, Arthralgia Skin: Denies: Rash, Skin Changes, Wounds Neurological:: Reports: Hearing loss. Denies: Headache, Dizziness, Visual changes, Tinnitus Psychiatric: Denies: Anxiety, Depression, Homicidal Ideations, Suicidal Ideations Comment: Easy bruises was daily activity related trauma Vital Signs Height 5 ft 11 in Weight: 102.5 kg Weight in Pounds 226.0 lbs Pulse Ox 93 - Physical Exam General: Alert, Oriented x3, No apparent distress, - - Overweight Hard of hearing HEENT: Atraumatic, PERRLA, EOMI, Normocephalic Oropharynx:: Dry mucosa Neck:: Supple, Trachea midline. Negative for: JVD, bilateral Cardiac:: Regular rate, Regular rhythm, Normal S1, Normal S2. Negative for: Murmur Lungs: Clear to auscultation, Diminished - Over the bases, Excusion symmetrical. Negative for: Rhonchi, Wheezes Abdomen:: Soft, Non-tender, Non-distended. Negative for: Hepatosplenomegaly Extremities:: Negative for: Cyanosis, Edema Neurological: Neuro grossly intact Skin:: Ecchymosis - Over the extremities but not to trunk. Negative for: Lesions, Rash, Petechiae Psychiatric:: Appropriate affect, Euthymic Lymphatics:: Negative for: Cervical lymphadenopathy, Supraclavicular lymphadenopathy, Axillary lymphadenopathy Laboratory Data: Laboratory Tests Laboratory Tests Plt Count 63 L 100 L 58 L Plt Count 68 L 70 L 76 L Plt Count 72 L WBC (4.4-11.0) K/mm3 RBC (4.6-6.2) M/mm3 Hgb (13.0-16.5) g/dl Hct (40-54) % WBC (4.4-11.0) K/mm3 RBC (4.6-6.2) M/mm3 Hgb (13.0-16.5) g/dl Hct (40-54) % MCV (80-94) fL MCH (27.0-32.0) pg WBC 3.3 L (4.4-11.0) K/mm3 RBC 3.36 L (4.6-6.2) M/mm3 Hgb 9.5 L (13.0-16.5) g/dl WBC (4.4-11.0) K/mm3 RBC (4.6-6.2) M/mm3 Hgb (13.0-16.5) g/dl Diagnostic Data: Diagnostic Data Chest X-Ray 05/26/18 11:57 IMPRESSION: Low lung volumes. Small right pleural effusion. No evidence of acute failure. Stable cardiomegaly. Electronically Signed: Juana Schulz MD at 13:02 EDT , Service support , Assessment and Plan 82-year-old gentleman with a very low risk MDS (anemia with hemoglobin over 8 g but less than 10 g, thrombocytopenia with a platelet count between 50-100 K and absolute neutrophil count over 800, very good cytogenetics profile and less than 2% bone marrow blasts, bone marrow study 2016). Score <=1.5: Very low risk: median overall survival 8.8 years with >14.5 years to 25% AML evolution. Patient admitted with new onset cardiac failure, cardiology recommendation include dual antiplatelet therapy with aspirin long-term and Plavix for 1 year. From the hematology consult view antiplatelet therapy is not contraindicated as long as platelets are above 50 K. It is conceivable that he has some baseline platelet dysfunction due to chronic renal failure but again that in itself is not a contraindication for antiplatelet therapy as long as the benefit outweighs the risk. Patient reported dark stools and I would advise stool testing for occult blood. If positive further evaluation by GI would be advisable. Thank you for involving me in his care, to follow-up with as earlier scheduled. Medications: Prescriptions This Visit Medication Instructions Recorded Guaifenesin [Guaifenesin ER] 1,200 mg PO Q12H 05/26/18 Lisinopril [Zestril] 2.5 mg PO QDAY 05/26/18 Metformin HCl [Glucophage] 1,000 mg PO DAILY 05/26/18 Medications Added to Medication List This Visit 0.9% Normal Saline 1,000 ml Med 05/27/18 09:15 Active IV 150 mls/hr Amiodarone HCl [Cordarone] Med 05/27/18 14:00 Active 200 mg PO TID Heparin Sodium,Porcine/Pf [Heparin 500 Unit/5 ml (100/ Med 05/27/18 09:12 Active Primary Care Provider: Roc Martinez MD Referring Provider: Mic Khan 05/27/18 1622 <Electronically signed by Yonny Woody MD> Date Yonny Woody MD Cosigner Signature (if applicable): Date CC: Shawn Dickson MD; Mic Khan MD; Roc Martinez MD; Yonny Woody MD Signed ACT ACTIVATED CLOTTING Collected: 05/27/2018 Status: F Source: YOSI TIME 12:04 PM [facility] REPOSITORY TYPE CODE TESTS RESULT OUT OF RANGE REFERENCE UNITS LAB L9100.0100 74-137 sec High ACTk CLOT 169 TIME Performed By: #### L9100.0100 #### [facility] Point of Care [address] [place], [place] [id number] ACT ACTIVATED CLOTTING Collected: 05/27/2018 Status: F Source: YOSI TIME 11:35 AM [facility] REPOSITORY TYPE CODE TESTS RESULT OUT OF RANGE REFERENCE UNITS LAB L9100.0100 74-137 sec High ACTk CLOT 175 TIME Performed By: #### L9100.0100 #### [facility] Point of Care [address] [place], [place] [id number] ACT ACTIVATED CLOTTING Collected: 05/27/2018 Status: F Source: YOSI TIME 10:38 AM [facility] REPOSITORY TYPE CODE TESTS RESULT OUT OF RANGE REFERENCE UNITS LAB L9100.0100 74-137 sec High ACTk CLOT 186 TIME Performed By: #### L9100.0100 #### [facility] Point of Care [address] [place] [address] ACT ACTIVATED CLOTTING Collected: 05/27/2018 Status: F Source: YOSI TIME 9:10 AM [facility] REPOSITORY TYPE CODE TESTS RESULT OUT OF RANGE REFERENCE UNITS LAB L9100.0100 74-137 sec High ACTk CLOT 246 TIME Performed By: #### L9100.0100 #### [facility] Point of Care [address] [place] [address] BLOOD GASES BY CPS Collected: 05/27/2018 Status: F Source: YOSI 8:05 AM [facility] REPOSITORY TYPE CODE TESTS RESULT OUT OF RANGE REFERENCE UNITS LAB L9000.9990 Normal BLD GAS ART TYPE LAB L9001.1110 7.35-7.45 Normal pH - 7.43 I-STAT LAB L9001.1210 35-45 mmHg Normal pCO2 - 37.2 ISTAT LAB L9001.1310 75-100 mmHG Low PO2 66 I-STAT LAB L9001.2300 22-26 mmol/L Normal HCO3 24.9 ISTAT LAB L9001.2400 -2 to +2 mmol/L Normal BE ISTAT 1 LAB L9001.2415 mmol/L Normal TOTAL CO2 26 ISTAT LAB L9001.2425 95-99 % Low SO2 ISTAT 93 Performed By: #### L9000.0800 #### [facility] Point of Care [address] [place] [address] VENOUS BLOOD GAS Collected: 05/27/2018 Status: F Source: YOSI 8:02 AM [facility] REPOSITORY TYPE CODE TESTS RESULT OUT OF RANGE REFERENCE UNITS LAB L9000.9990 Normal BLD GAS ESME TYPE LAB L9002.1110 7.32-7.42 Normal VBGpH - 7.41 I-STAT LAB L9002.1212 41-51 mmHg Normal VBG pCO2 43.9 - ISTA LAB L9002.1310 25-40 mmHg Normal VBG PO2 30 I-STAT LAB L9002.2300 22-26 mmol/L High VBG HCO3 28 ISTAT LAB L9002.2400 -1.0-3.5 mmol/L Normal VBG BE 3 ISTAT LAB L9002.2410 50-70 % Normal VBG SO2 57 ISTAT LAB L9002.2415 23-33 mmol/L Normal VBG O2 CT 29 ISTAT Performed By: #### L9000.0810 #### [facility] Point of Care [address] [place] [id number] VENOUS BLOOD GAS Collected: 05/27/2018 Status: F Source: MOBILE 7:58 AM [facility] REPOSITORY TYPE CODE TESTS RESULT OUT OF RANGE REFERENCE UNITS LAB L9000.9990 Normal BLD GAS ESME TYPE LAB L9002.1110 7.32-7.42 Normal VBGpH - 7.40 I-STAT LAB L9002.1212 41-51 mmHg Normal VBG pCO2 44.7 - ISTA LAB L9002.1310 25-40 mmHg Normal VBG PO2 30 I-STAT LAB L9002.2300 22-26 mmol/L High VBG HCO3 28 ISTAT LAB L9002.2400 -1.0-3.5 mmol/L Normal VBG BE 3 ISTAT LAB L9002.2410 50-70 % Normal VBG SO2 57 ISTAT LAB L9002.2415 23-33 mmol/L Normal VBG O2 CT 29 ISTAT Performed By: #### L9000.0810 #### [facility] Point of Care [address] [place] [address] VENOUS BLOOD GAS Collected: 05/27/2018 Status: F Source: YOSI 7:55 AM [facility] REPOSITORY TYPE CODE TESTS RESULT OUT OF RANGE REFERENCE UNITS LAB L9000.9990 Normal BLD GAS ESME TYPE LAB L9002.1110 7.32-7.42 Normal VBGpH - 7.41 I-STAT LAB L9002.1212 41-51 mmHg Normal VBG pCO2 42.7 - ISTA LAB L9002.1310 25-40 mmHg Normal VBG PO2 34 I-STAT LAB L9002.2300 22-26 mmol/L High VBG HCO3 27 ISTAT LAB L9002.2400 -1.0-3.5 mmol/L Normal VBG BE 3 ISTAT LAB L9002.2410 50-70 % Normal VBG SO2 65 ISTAT LAB L9002.2415 23-33 mmol/L Normal VBG O2 CT 28 ISTAT Performed By: #### L9000.0810 #### [facility] Point of Care [address] [place] [address] BEDSIDE GLUCOSE Collected: 05/27/2018 Status: F Source: MOBILE 6:41 AM [facility] REPOSITORY TYPE CODE TESTS RESULT OUT OF RANGE REFERENCE UNITS LAB L501.080 70-110 mg/dL Normal BEDSIDE GLU 107 Result Comment: MANAGEMENT OF PATIENT CARE PER NURSING PROTOCOL Performed By: #### L501.080 #### [facility] Point of Care [address] [place] [address] PROTHROMBIN TIME W/INR Collected: 05/27/2018 Status: F Source: MOBILE 5:55 AM [facility] REPOSITORY TYPE CODE TESTS RESULT OUT OF RANGE REFERENCE UNITS LAB L300.4150 11.7-14.9 SECONDS High PROTIME 15.6 LAB L300.4200 Normal INR 1.2 Performed By: #### L300.3900, L300.4310 #### [facility] [address] [facility] [address] PARTIAL THROMBOPLAST Collected: 05/27/2018 Status: F Source: MOBILE TIME 5:55 AM [facility] REPOSITORY TYPE CODE TESTS RESULT OUT OF RANGE REFERENCE UNITS LAB L300.4310 24.1-36.2 Seconds Normal PTT 33.2 Performed By: #### L300.3900, L300.4310 #### [facility] [address] [place], [address] CBC W/DIFF, AUTOMATED Collected: 05/27/2018 Status: F Source: MOBILE 5:55 AM [facility] REPOSITORY TYPE CODE TESTS RESULT OUT OF RANGE REFERENCE UNITS LAB L100.1000 4.4-11.0 K/mm3 Low WBC 3.3 LAB L100.1200 4.6-6.2 M/mm3 Low RBC 3.36 LAB L100.1300 13.0-16.5 g/dl Low HGB 9.5 LAB L100.1400 40-54 % Low HCT 29.1 LAB L100.1500 80-94 fL Normal MCV 86.6 LAB L100.1600 27.0-32.0 pg Normal MCH 28.3 LAB L100.1700 32-36 g/gl Normal MCHC 32.6 LAB L100.1810 11.6-14.6 % High RDW CV 22.4 LAB L100.1820 35.1-43.9 fl High RDW SD 64.5 LAB L100.1900 150-450 K/mm3 Low PLT 72 LAB L100.2100 47-70 % Normal NEUT% 63.2 LAB L100.2200 19-41 % Normal LY% 27.4 LAB L100.2300 0-10 % Normal MONO% 7.6 LAB L100.2400 0-5 % Normal EO% 0.9 LAB L100.2500 0-1 % Normal BASO% 0.3 LAB L100.2550 0.0-0.9 % Normal IM GRAN % 0.600 Result Comment: IG% - Immature Granulocytes (promyelocytes, myelocytes and metamyelocytes) > 1% indicates that a LEFT SHIFT is Present. LAB L100.2620 2.0-7.7 X10 3/uL Normal Absolute Neut 2.1 LAB L100.2720 0.83-4.51 X10 3/ul Normal Absolute Lymph 0.90 LAB L100.4500 Normal SMEAR COMMENT COMMENT Result Comment: SLIDE SCANNED - 1+ ANISO, RARE RBC FRAGMENTS, 1+ LARGE PLTS. Performed By: #### L100.0100 #### [facility] [address] [place], [address] BASIC METABOLIC Collected: 05/27/2018 Status: F Source: YOSI PROFILE ([facility]) 5:55 AM [facility] REPOSITORY TYPE CODE TESTS RESULT OUT OF RANGE REFERENCE UNITS LAB L501.0100 74-106 mg/dL Normal GLU 106 Result Comment: Fasting Glucose result from 100 to 125 mg/dL suggests IMPAIRED HOMEOSTASIS per A.D.A. criteria. Please note revised GLUCOSE reference range effective 2017. LAB L501.1000 7-18 mg/dL High BUN 20 LAB L501.1100 0.70-1.30 mg/dL High CREAT,SERUM 1.42 Result Comment: The validity of the calculated GFR AND GFRAA in patients over 70 years has not been determined. Clinical correlation is essential. LAB L501.1110 >60 mL/min Low EST GFR 51 Result Comment: Non- GFR Calc LAB L501.1115 >60 mL/min Normal EST GFR - AA 61 Result Comment: GFR Calc LAB L501.1255 ml/min Normal Estimated CRCL 43.45 LAB L501.1300 10-20 RATIO Normal BUN/CRE 14.1 LAB L501.2200 8.5-10 mg/dL Low .1 CA 8.4 LAB L501.5300 136-14 mmol/L Normal 5 NA 138 LAB L501.5600 3.5-5. mmol/L Normal 1 K 4.1 LAB L501.5900 98-107 mmol/L Normal CL 104 LAB L501.6100 21.0-3 mmol/L Normal 2.0 CO2 29.0 LAB L501.6200 5-15 Normal GAP 5 Performed By: #### L500.2500 #### [facility] [address] [place], [address] URINALYSIS, COMPLETE Collected: 05/27/2018 Status: F Source: MOBILE 5:45 AM [facility] REPOSITORY Order Comment: Order Date: 05/27/18 How was Urine Obtained? CLEAN CATCH TYPE CODE TESTS RESULT OUT OF RANGE REFERENCE UNITS LAB L400.3000 Yellow COLOR Normal Yellow LAB L400.3050 Clear Normal CLARITY Clear LAB L400.3200 Normal mg/dl Normal GLUCOSE, UR Normal LAB L400.3300 Negative mg/dL Normal BILIRUBIN URINE Negative LAB L400.3400 Negative mg/dl Normal KETONE UR Negative LAB L400.3465 1.002-1.030 Normal SP.GR. DIPSTX 1.015 LAB L400.3550 5.0 - 8.0 pH UR Normal 6.0 LAB L400.3600 Negative mg/dl High PROT 30 DIPSTX LAB L400.3700 Normal mg/dl Normal UROBILI Normal LAB L400.3750 Negative Normal NITRITE UR Negative LAB L400.3780 Negative /ul High 10 OCCULT BLOOD-UR LAB L400.3800 Negative /ul LEUK Normal ESTERASE Negative LAB L400.4050 0-5 /hpf WBC 0 Normal SEEN LAB L400.4100 0-5 /hpf 0 Normal RBC-UA SEEN LAB L400.4150 0-5 /hpf SQUAM 0 Normal EPI SEEN LAB L400.4300 None Seen /hpf 0 Normal BACTERIA SEEN LAB L400.4350 <or=2+ /hpf 0 Normal MUCUS, URINE SEEN Performed By: #### L400.0001 #### [facility] [address] [facility] [place], [address] EMERGENCY DEPARTMENT Observed: 05/26/2018 Status: F Source: MOBILE SUMMARY 4:26 PM [facility] REPOSITORY [facility] Medical Records Department [address] [place] [address] Emergency Department Summary 05/26/18 1213 MR#: [id number] Acct: [id number] Name: ANGEL BRIGGS Rep #: [id number] : 1935 82 From: Franklyn Liu MD PCP: Roc Martinez MD Status: ADM IN - ER Visit Summary Date of Service: 05/26/18 Chief Complaint: Shortness of breath and leg swelling History of Present Illness: The patient is a 82 M history of hypertension, COPD but not on oxygen and qyp-lmqeuys-vuqhfujbb diabetes. Patient states that he has had shortness of breath for last month primarily with exertion. He denies chest pain. He denies fever. He has a chronic cough. He states he was diagnosed with pneumonia. But now he states he has had weight gain and swelling to both lower extremities. No history of DVT or PE. No recent travel, surgery, hospitalization or immobilization. No chest pain or hemoptysis. Physical Examination: Older male no acute distress. Lying in bed. Vital signs are stable. His pulse ox is 92% on room air no hypoxia. H EENT exam unremarkable. Neck nontender. No JVD no lymphadenopathy. Lungs clear to auscultation bilaterally. Heart A. fib at 90.. Abdomen soft and nontender. Normal bowel sounds no peritoneal signs. He is moving all 4 extremities. There are no motor deficits. He does have 1+ pitting edema with both lower extremities. Calves are nontender. Neurologically is awake and alert. With no focal deficits. Test Results: EKG A. fib rate of 89. This is change from an EKG from 2012 but I do not have a more recent EKG. Patient denies having a history of A. fib I do not know if that is accurate. CBC shows pancytopenia with a white count of 3. Hemoglobin of 9.3 which is around his baseline. Platelet count 76,000 again along his baseline. Chemistries unremarkable creatinine 1.55 which is his baseline renal insufficiency. Troponin 0 0.055 BNP 282. Chest x-ray stable cardiomegaly with a small right pleural effusion. Emergency Department Course and Treatment: Patient with exertional dyspnea and leg swelling will undergo cardiac workup. Treatment Plan: Repeat exam patient is doing well. He states he cannot even walk around his house without having him to sit down to catch his breath. He spoke to the hospitalist about admission. Disposition: Admission Impression: Acute exertional dyspnea Bilateral peripheral edema Atrial fibrillation Rule out CHF Chronic pancytopenia Chronic renal insufficiency This note was generated with [employer] dictation software. It may contain incorrect words, spelling, and punctuation that were not noted in review of the chart prior to signing ED Disposition - Plan for ED Patient: Chief Complaint: Shortness of Breath What to do if you have Problems For any increased pain, shortness of breath, bleeding, nausea or vomiting, chest pain, or any unexpected problems, contact your Primary Care Provider. Call [facility] ([phone]) or report to the closest Emergency Room. Call 911 if necessary. 05/26/18 7046 <Electronically signed by Franklyn Liu MD> Date Franklyn Liu MD Cosigner Signature (If Indicated): Date CC: Roc Martinez MD CONSULTATION Observed: 05/26/2018 Status: F Source: MOBILE 3:21 PM [facility] REPOSITORY [facility] Medical Records Department [address] [place] [address] Consultation 05/26/18 1510 MR#: [id number] Acct: [id number] Name: ANGEL BRIGGS Rep #: [id number] : 1935 82 From: Shawn Dickson MD PCP: Roc Martinez MD Status: ADM IN Y Location: [place] [address] Problem List (1) Paroxysmal ventricular tachycardia Status: Acute (2) HTN (hypertension) Status: Chronic (3) Hyperlipidemia Status: Chronic (4) Hypertension Status: Chronic Qualifiers: Hypertension type: essential hypertension Qualified Code(s): I10 - Essential (primary) hypertension Reason for Consult Date of Consultation: 05/26/18 Reason for Consultation: Shortness of breath, lower extremity edema, new onset heart failure, dyspnea on exertion, COPD, diabetes History of Present Illness: The patient is a 82 year old M, patient of Dr. Rubin, with a history of diabetes, hypertension, COPD, former smoker who quit around 30 years ago after a 11-48-qtpz-year smoking history, no known cardiac disease. He has never had a stroke. The patient was in normal health up into the last 3 or 4 days when he began developing worsening lower extremity edema, shortness of breath, and dyspnea on exertion to the point where he cannot walk from his bed to the bathroom without becoming profoundly short of breath. His aspirin was stopped about 3 days ago by his PCP, but did not appear to be related to his edema. He denies any chest pain, angina, presyncope or syncope. The patient had an echocardiogram in 2017 which apparently demonstrated normal LV size and function, RVSP was not commented on. Patient had a pharmacologic stress test on 01/07/18 which was negative for inducible ischemia. Currently the patient is laying in bed, no acute distress, and has no difficulty laying down flat. IV diuresis is pending. Patient was also found to have a creatinine clearance of around 56, and a creatinine about 1.55. 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 Repeat echo is pending. [] Past Medical History Allergies/Adverse Reactions: Allergies codeine Adverse Reaction (Severe, Verified 05/26/18 11:33) Unknown Home Medications: Ambulatory Orders Medication Instructions Recorded apple cider vinegar 300 mg tablet 450 mg PO DAILY 09/15/17 multivitamin with iron tablet 1 tab PO QDAY 09/15/17 Past Medical History (Chronic Problems): Chronic Problems (Last Reviewed 05/07/18 @ 15:29 by Emilie Marie) MDS (myelodysplastic syndrome), low grade (Chronic) HTN (hypertension) (Chronic) Hyperlipidemia (Chronic) Hypertension (Chronic) Hyperlipemia (Chronic) Type 2 diabetes mellitus (Chronic) COPD (chronic obstructive pulmonary disease) (Chronic) Smoking Status: Former smoker Review of Systems - Review of Systems General: Denies: Fever, Night Sweats, Fatigue Cardiovascular: Reports: Shortness of Breath, Shortness of Breath with Exertion, Peripheral Edema. Denies: Chest Discomfort, Orthopnea, PND, Palpitations, Lightheadedness, Dizziness, Near Syncope, Syncope Respiratory: Denies: Cough, Sputum Production, Hemoptysis Gastrointestinal: Denies: Hematemesis, Hematochezia, Melena Genitourinary: Denies: Dysuria, Hematuria Skin: Denies: Rash Subjectve: Patient resting comfortably. No acute distress. Objective: Vital Signs Temp Pulse Resp BP Pulse Ox 97.9 F 81 18 161/82 H 99 05/26/18 11:33 05/26/18 13:25 05/26/18 13:25 05/26/18 11:33 05/26/18 13:25 Oxygen Flow Rate (L/min) 2 Oxygen Delivery Method Nasal Cannula Weight: 233 lb Body Mass Index (BMI) 33.4 General: Awake, Alert, Oriented x 3 HEENT: PERRL, EOMI, Sclera Non Icteric Neck: Supple, Good ROM, No Lymph Node Enlargement Lungs: Rales - Shan Bases Cardiovascular: Regular Rhythm, Normal S1, Normal S2, No Rubs, No Gallops Murmur Murmur: Grade 2/6, Holosystolic Vascular: No Carotid Bruits, Normal Femoral Pulses, Normal Radial Pulses, Normal Dorsalis Pedal Pulse, Normal Posterior Tibial Pulses Abdomen: Bowel Sounds Present, Soft, Non Tender, No HSM, No Organomegaly Extremities: No Cyanosis, No Clubbing, Bilateral Edema +2 Neurological: No Focal Motor or Sensory Deficit 05/26/18 12:30: WBC 3.4 L, RBC 3.28 L, Hgb 9.3 L, Hct 28.1 L, MCV 85.7, MCH 28.4, MCHC 33.1, RDW 22.3 H, RDW Differential 63.7 H, Plt Count 76 L, Immature Gran % (Auto) 0.600, Neut % (Auto) 68.6, Lymph % (Auto) 23.9, [place] % (Auto) 6.0, Eos % (Auto) 0.6, Baso % (Auto) 0.3, Absolute Neuts (auto) 2.3, Total Counted Not Reportable 05/26/18 12:30: Sodium 136, Potassium 4.5, Chloride 105, Carbon Dioxide 27.0, Anion Gap 4 L, BUN 22 H, Creatinine 1.55 H, Est GFR (MDRD) Af Amer 56 L, Est GFR (MDRD) Non-Af 46 L, BUN/Creatinine Ratio 14.2, Glucose 102, Calcium 8.4 L, Troponin I 0.055 H 05/26/18 12:30: B-Natriuretic Peptide 282.3 H Rhythm: EKG: As above ECHO: Pending Stress Test: Cardiac Cath: Pending PCI: CT Surgery: Holter monitor: EPS: PPM: CXR: Chest CT Scan: Assessment/Plan 1. Dyspnea on exertion: The patient has signs and symptoms of dyspnea on exertion with associated bilateral lower extremity edema, shortness of breath, who is unable to walk from his bed to the bathroom without becoming short of breath. Although the patient had a negative stress test in December 2017, his EKG suggest possible old inferior and anterior wall myocardial infarction. At this point I recommend Lasix 40 mg IV twice daily and attempt to begin diuresis. He does have chronic renal insufficiency, may require ongoing diuretic therapy going forward. As a way of better evaluating his congestive heart failure I would not recommend repeat stress testing, but would recommend a diagnostic left and right heart catheterization with Dr. Reynolds tomorrow. Patient will continue aspirin, and will be loaded with Plavix 3 mg x1 now followed by 75 mg p.o. daily. I have spoken with Dr. Reynolds, who is agreed to proceed with left and right heart catheterization tomorrow morning. In the meantime he will continue to be ruled out for myocardial infarction. Repeat echocardiogram is pending. 2. Hyperlipidemia: Given the patient's diabetes and age he requires aggressive LDL reduction. Would recommend a repeat lipid profile. His LDL should be less than 70. 3. Chronic renal insufficiency: The patient has evidence of a creatinine clearance of at least 56, which may be overestimated after he diuresis. He may require renal consultation. 4. Thank you very much for the opportunity to participate in the cardiac care of your patient. Consultation time took place between 3 PM and 3:30 PM. Code Visit Inpatient Yves AND M: [id number] Init Hosp L2 05/26/18 1521 <Electronically signed by Shawn Dickson MD> Date Shawn Dickson MD Cosigner Signature (if applicable): Date CC: Shawn Dickson MD; Mic Khan MD; Roc Martinez MD Signed HISTORY AND PHYSICAL Observed: 05/26/2018 Status: F Source: MOBILE EXAM 3:07 PM [facility] REPOSITORY [facility] Medical Records Department [address] [place] [address] History and Physical 05/26/18 1446 MR#: [id number] Acct: [id number] Name: ANGEL BRIGGS Rep #: [id number] : 1935 82 From: Mason Martinez MD PCP: Roc Martinez MD Status: ADM IN Location: [place] [address] Problem List (1) Acute on chronic diastolic CHF (congestive heart failure) Status: Acute History of Present Illness Date of Admission: 05/26/18 Chief Complaint: exertional dyspnea and LE swelling The patient is a 82 year old M with h/o COPD and DM2 and MDS. Presents to hospital with 1 month h/o progressively worsening exertional dyspnea and LE swelling. Denies any orthopnea or PND. Denies exertional chest pain. Denies any palpitations and denies any fever or chills. has noted 8 Lb gain in weight as well Has occasional cough. No wheezing. Here on the ED noted to be in atrial fibrillation and HR only mildly elevated [] Past Medical History Past Medical History (Chronic Problems): Chronic Problems (Last Reviewed 05/07/18 @ 15:29 by Emilie Marie) MDS (myelodysplastic syndrome), low grade (Chronic) HTN (hypertension) (Chronic) Hyperlipidemia (Chronic) Hypertension (Chronic) Hyperlipemia (Chronic) Type 2 diabetes mellitus (Chronic) COPD (chronic obstructive pulmonary disease) (Chronic) Medical History: Medical History (Last Reviewed 05/07/18 @ 15:29 by Emilie Marie) Premature atrial contractions (Acute) I49.1 MDS (myelodysplastic syndrome), low grade (Chronic) D46.20 Paroxysmal atrial tachycardia (Acute) I47.1 Paroxysmal ventricular tachycardia (Acute) I47.2 Premature ventricular contraction (Acute) I49.3 Palpitations (Acute) R00.2 HTN (hypertension) (Chronic) I10 Hyperlipidemia (Chronic) E78.5 Hypertension (Chronic) I10 Hyperlipemia (Chronic) E78.5 Type 2 diabetes mellitus (Chronic) E11.9 COPD (chronic obstructive pulmonary disease) (Chronic) J44.9 Bilateral hip pain M25.551, M25.552 Contusion of right knee S80.01XA Inguinal hernia K40.90 Low back pain M54.5 Prepatellar bursitis, right knee M70.41 Thrombocytopenia D69.6 Arthritis M19.90 BPH (benign prostatic hyperplasia) N40.0 BPH (benign prostatic hyperplasia) N40.0 MDS (myelodysplastic syndrome), low grade D46.20 Allergies codeine Adverse Reaction (Severe, Verified 05/26/18 11:33) Unknown Home Medications: Ambulatory Orders Medication Instructions Recorded apple cider vinegar 300 mg tablet 450 mg PO DAILY 09/15/17 multivitamin with iron tablet 1 tab PO QDAY 09/15/17 mecobalamin (vitamin B12) 1,000 1,000 mcg SUBLINGUAL QDAY 09/25/17 Surgical History: Surgical History (Last Reviewed 05/07/18 @ 15:29 by Emilie Marie) H/O hernia repair Z98.890, Z87.19 History of left hip replacement Z96.642 History of left hip replacement Z96.642 History of hand surgery Z98.890 Lt Smoking Status: Former smoker Review of Systems Constitutional: Denies: Anorexia, Chills, Fever, Night Sweats Eyes: Denies: Pain Cardiovascular: Reports: Claudication - likely neurogenic type, Edema, Light Headedness. Denies: Orthopnea Respiratory: Reports: Cough, Shortness of Breath. Denies: Hemoptysis, Pleuritic Pain Gastrointestinal: Reports: Dyspepsia. Denies: Vomiting Musculoskeletal: Reports: Back Pain Hematologic/ Lymphatic: Reports: Anemia, Easy Bruising, Petechiae, Purpura Comment: all other systems reviewed and are negative VTE Information - Inpt Only VTE Present on Admission: No VTE Mechan Device Prophylaxis: None VTE Pharm Prophylaxis ordered?: Yes Patient Problems: Active and Suspected Problems (Last Reviewed 05/07/18 @ 15:29 by Emilie Marie) Acute on chronic diastolic CHF (congestive heart failure) (Acute) - Physical Exam General: Alert, Oriented x3, Cooperative - mildly dyspneic HEENT: Atraumatic, Normocephalic Oral: Moist Mucosa Neck: Supple, No Nuchal Rigidity, JVD, Right Lungs: Diminished, Tachypneic, - - reduced and diminished BS especially in the bases Abdomen: Bowel Sounds Present, Soft, Non Tender, Non-Distended, Obese Extremities: Edema - pittting edema up to sacrum Skin: - - ecchymoses noted Musculoskeletal: No Muscle Wasting Neurological: Cranial nerves II-XII grossly intact, Neuro grossly intact Psych/Mental Status: Normal Affect, Appropriate, Alert and oriented to time, place, person, mood and affect Vital Signs Temp Pulse Resp BP Pulse Ox 97.9 F 81 18 161/82 H 99 05/26/18 11:33 05/26/18 13:25 05/26/18 13:25 05/26/18 11:33 05/26/18 13:25 Oxygen Flow Rate (L/min) 2 Oxygen Delivery Method Nasal Cannula Weight: 105.687 kg Body Mass Index (BMI) 33.4 Laboratory Tests Past 24 Hrs WBC 3.4 L RBC 3.28 L Hgb 9.3 L Hct 28.1 L MCV 85.7 Assessment/Plan All Active Problems (Last Reviewed 05/07/18 @ 15:29 by Emilie Marie) Acute on chronic diastolic CHF (congestive heart failure) (Acute) Pain on swallowing (Acute) Premature atrial contractions (Acute) Hypotension (Acute) Paroxysmal atrial tachycardia (Acute) Paroxysmal ventricular tachycardia (Acute) Premature ventricular contraction (Acute) Palpitations (Acute) 1. Acute on chronic diastolic CHF Echo done 1 year ago was normal with EF of 60% Stress test few months ago was normal as well Likely failure is precipitated by atrial fibrillation with RVR IV lasix 40 bid, daily weights and strict I/Os Consult cardiology 2. 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 Progressive dyspnea. Suspect patient may have underlying ILD or pulmonary HTN Recent CT showing some patchy ground glass opacities Carries diagnosis of COPD in problem list but quit smoking 35 years ago In all likelihood will need PFTs as an outpatient and pulmonology consult now or as an outpatient 4. Low grade MDS. Stable 5. DM2. Will continue home regimen for now 6. HTN. Stable Code Visit Inpatient E AND M: [id number] Init Hosp L3 05/26/18 1507 <Electronically signed by Mason Martinez MD> Date Mason Martinez MD Cosigner Signature: Date (if applicable) CC: Roc Martinez MD; Mason Martinez M.D. Signed BASIC METABOLIC Collected: 05/26/2018 Status: F Source: [place]OSI PROFILE (BMP) 12:30 PM [facility] REPOSITORY TYPE CODE TESTS RESULT OUT OF RANGE REFERENCE UNITS LAB L501.0100 74-106 mg/dL Normal GLU 102 Result Comment: Fasting Glucose result from 100 to 125 mg/dL suggests IMPAIRED HOMEOSTASIS per A.D.A. criteria. Please note revised GLUCOSE reference range effective 2017. LAB L501.1000 7-18 mg/dL High BUN 22 LAB L501.1100 0.70-1.30 mg/dL High CREAT,SERUM 1.55 Result Comment: The validity of the calculated GFR AND GFRAA in patients over 70 years has not been determined. Clinical correlation is essential. LAB L501.1110 >60 mL/min Low EST GFR 46 Result Comment: Non- GFR Calc LAB L501.1115 >60 mL/min Low EST GFR - AA 56 Result Comment: GFR Calc LAB L501.1255 ml/min Normal Estimated CRCL 38.59 LAB L501.1300 10-20 RATIO Normal BUN/CRE 14.2 LAB L501.2200 8.5-10 mg/dL Low .1 CA 8.4 LAB L501.5300 136-14 mmol/L Normal 5 NA 136 LAB L501.5600 3.5-5. mmol/L Normal 1 K 4.5 LAB L501.5900 98-107 mmol/L Normal CL 105 LAB L501.6100 21.0-3 mmol/L Normal 2.0 CO2 27.0 LAB L501.6200 5-15 Low GAP 4 Performed By: #### L500.2500, L501.4010 #### [facility] [address] [place], [place], [id number] TROPONIN-I Collected: 05/26/2018 Status: F Source: MOBILE 12:30 PM [facility] REPOSITORY TYPE CODE TESTS RESULT OUT OF RANGE REFERENCE UNITS LAB L501.4010 <0.045 ng/mL High 0.055 TROPONIN-I Result Comment: TROPONIN-I EXPECTED VALUES <0.045 Negative 0.045 - 0.590 Consistent with Cardiac Damage > OR = 0.600 Critical Value Not every elevated troponin is indicative of MD. These values should be used with clinical judgement in examining the patient's clinical picture for diagnosis. To establish a diagnosis of MD versus myocardial injury, there must be a demonstrated rise and/or fall in the troponin values, in addition to ischemic symptoms, EKG changes, new regional wall motion abnormality, and/or angiographical evidence. PLEASE NOTE: REFERENCE RANGES EDITED 17 Performed By: #### L500.2500, L501.4010 #### [facility] [address] [place], [place], [id number] CBC W/DIFF, AUTOMATED Collected: 05/26/2018 Status: F Source: MOBILE 12:30 PM [facility] REPOSITORY TYPE CODE TESTS RESULT OUT OF RANGE REFERENCE UNITS LAB L100.1000 4.4-11.0 K/mm3 Low WBC 3.4 LAB L100.1200 4.6-6.2 M/mm3 Low RBC 3.28 LAB L100.1300 13.0-16.5 g/dl Low HGB 9.3 LAB L100.1400 40-54 % Low HCT 28.1 LAB L100.1500 80-94 fL Normal MCV 85.7 LAB L100.1600 27.0-32.0 pg Normal MCH 28.4 LAB L100.1700 32-36 g/gl Normal MCHC 33.1 LAB L100.1810 11.6-14.6 % High RDW CV 22.3 LAB L100.1820 35.1-43.9 fl High RDW SD 63.7 LAB L100.1900 150-450 K/mm3 Low PLT 76 LAB L100.2100 47-70 % Normal NEUT% 68.6 LAB L100.2200 19-41 % Normal LY% 23.9 LAB L100.2300 0-10 % Normal MONO% 6.0 LAB L100.2400 0-5 % Normal EO% 0.6 LAB L100.2500 0-1 % Normal BASO% 0.3 LAB L100.2550 0.0-0.9 % Normal IM GRAN % 0.600 Result Comment: IG% - Immature Granulocytes (promyelocytes, myelocytes and metamyelocytes) > 1% indicates that a LEFT SHIFT is Present. LAB L100.2620 2.0-7.7 X10 3/uL Absolute Neut Normal 2.3 LAB L100.2720 0.83-4.51 X10 3/ul Low Absolute Lymph 0.80 LAB L100.7300 ANISO Normal 3+ LAB L100.7700 MICROCYTES Normal 2+ LAB L100.8400 High SCHISTOCYTES 2+ LAB L100.5500 ADEQ PLT EST Normal MOD DEC Performed By: #### L100.0100 #### [facility] [address] [place], [address] BNP,B-TYPE NATRIURETIC Collected: 05/26/2018 Status: F Source: YOSI PEPTIDE 12:30 PM [facility] REPOSITORY TYPE CODE TESTS RESULT OUT OF RANGE REFERENCE UNITS LAB L503.6620 0-100 pg/mL High B-TYPE 282.3 FANNY PEP Performed By: #### L503.6620 #### [facility] [address] [place], [address] CHEST 1 VIEW Observed: 05/26/2018 Status: F Source: MOBILE (PORTABLE) 11:59 AM [facility] REPOSITORY [facility] Imaging Services [address] [place] [address] Chest 1 View (Portable) MR#: [id number] Acct: [id number] Name: ANGEL BRIGGS Rep #: [id number] : 1935 M 82 From: Juana Schulz MD PCP: Roc Martinez MD Status: ADM IN Study: Chest 1 View (Portable) Date of Exam: 05/26/18 Exam# [id number] Ordering Dr: Franklyn Liu MD STUDY: X-RAY CHEST REASON FOR EXAM: Male, 82 years old. INCREASING SOB, SWELLING IN BOTH LEGS, RECENT FALL, AND MID CHEST PAIN WITH EXERTION. COPD, EMPHYSEMA TECHNIQUE: Single AP portable view of the chest. COMPARISON: Chest x-ray April 10, 2014, chest CT May 04, 2018 FINDINGS: Cardiac monitoring leads are present. Low lung lines are noted. There is mild nonspecific elevation the right hemidiaphragm. There is evidence of a right-sided pleural effusion. Previously note was made of a small left pleural effusion. This is not identified on this single projection of the chest. There is mild cardiac enlargement. Normal mediastinum and delroy. Normal visualized pulmonary arteries. There is atherosclerotic calcification of the aortic arch . Normal visualized thoracic spine. Normal visualized ribs, clavicles, and shoulders. There is no demonstrated abnormality of the visualized soft tissue structures of the upper abdomen. RAD/Chest 1 View (Portable) IMPRESSION: Low lung volumes. Small right pleural effusion. No evidence of acute failure. Stable cardiomegaly. Electronically Signed: Juana Schulz MD at 13:02 EDT , Service support , CC: Roc Martinez MD; Franklyn Liu MD Medical Physics Teacher: Signed INTERNAL MEDICINE Observed: 05/17/2018 Status: F Source: YOSI OFFICE VISIT 3:18 PM [facility] [address] [place] [address] [place] [address] OFFICE VISIT Date of Service: 05/17/18 MR#: [id number] Acct: [id number] Name: ANGEL BRIGGS Rep #: [id number] : 1935 Provider: Roc Martinez MD Age/Sex: 82/M Location: [facility] Status: Signed Intake Vital Signs05/17/18 Height 5 ft 10 in Intake Visit Reasons: 3 MO FU Chief Complaint: follow-up visit Is patient in pain?: No Allergies codeine Adverse Reaction (Severe, Verified 04/28/18 10:45) Unknown Medications Aspirin [Lo-Dose Aspirin EC] 81 mg PO DAILY 11/11/16 [History Confirmed 04/28/18] apple cider vinegar 300 mg tablet 450 mg PO DAILY 09/15/17 [History Confirmed 04/28/18] multivitamin with iron tablet 1 tab PO QDAY 09/15/17 [History Confirmed 04/28/18] mecobalamin (vitamin B12) 1,000 mcg disintegrating tablet,sublingual 1,000 mcg SUBLINGUAL QDAY 09/25/17 [History Confirmed 04/28/18] vitamin B complex-vitamin C-folic acid 0.8 mg tablet 1 tab PO QDAY 09/25/17 [History Confirmed 04/28/18] metoprolol tartrate 25 mg tablet 12.5 mg PO BID #90 tab 10/20/17 [Rx Confirmed 04/28/18] tiotropium bromide 18 mcg capsule with inhalation device 1 cap INHALATION QDAY #90 ea 11/27/17 [Rx Confirmed 04/28/18] lisinopril 2.5 mg tablet 2.5 mg PO QDAY #90 tab 12/01/17 [Rx Confirmed 04/28/18] simvastatin 20 mg tablet 20 mg PO QPM #60 tab 12/01/17 [Rx Confirmed 08/01/18] tamsulosin 0.4 mg capsule 0.4 mg PO DAILY #90 cap 02/03/18 [Rx Confirmed 04/28/18] metformin 500 mg tablet 500 mg PO BID #180 tab 03/11/18 [Rx Confirmed 04/28/18] albuterol sulfate HFA 90 mcg/actuation aerosol inhaler 1 puff INHALATION Q6H PRN #8.5 g 04/28/18 [Rx Confirmed 04/28/18] guaifenesin ER 1,200 mg tablet, extended release 12 hr 1,200 mg PO Q12H #20 tab 05/07/18 [Rx Confirmed 05/07/18] PFSH Medical History Premature atrial contractions (Acute) MDS (myelodysplastic syndrome), low grade (Chronic) Paroxysmal atrial tachycardia (Acute) Paroxysmal ventricular tachycardia (Acute) Premature ventricular contraction (Acute) Palpitations (Acute) HTN (hypertension) (Chronic) Hyperlipidemia (Chronic) Hypertension (Chronic) Hyperlipemia (Chronic) Type 2 diabetes mellitus (Chronic) COPD (chronic obstructive pulmonary disease) (Chronic) Bilateral hip pain (Acute) Contusion of right knee (Acute) Inguinal hernia (Acute) Low back pain (Acute) Prepatellar bursitis, right knee (Acute) Thrombocytopenia (Acute) Arthritis (Chronic) BPH (benign prostatic hyperplasia) (Chronic) BPH (benign prostatic hyperplasia) (Chronic) MDS (myelodysplastic syndrome), low grade (Chronic) Surgical History H/O hernia repair (Chronic) 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 He was recently seen/managed for COPD exacerbation with associated hemoptysis. Shortness of breath has improved and he has had no further episodes of hemoptysis. He is however concerned about continued easy bruising. He has a history of myelodysplastic syndrome and is currently following up with hematology. Platelet count has remained less than 100. He is also on a daily aspirin. Follows up with the heart group for his history of PACs/PVCs. No known history of A. fib. ROS Const Constitutional: No weight change, body ache, chills, fatigue, sleep problems, fever(s), change in appetite, snoring, weakness, frequent falls, headache(s) or excessive sweating Eyes Eyes: No change in vision, eye pain, light sensitivity or blurry vision ENT ENT: No headache(s), abnormal hearing, ear pain, tinnitus, nasal congestion, sore throat or neck pain Resp Respiratory: Positive for cough Cough: Yes productive (improving); no snoring, shortness of breath or wheezing Cardio Cardiology: No excessive sweating, chest pain at rest, chest pain with exertion, shortness of breath, dyspnea on exertion, palpitations, orthopnea or lightheadedness Gastro GI: No abdominal pain, change in bowel habits, constipation, diarrhea, vomiting, nausea/dyspepsia or cramping Genitourinary Male: No painful urination, urinary incontinence, urinary frequency, urinary urgency, blood in urine, testicle pain or other Musc Musculoskeletal: No neck pain, abnormal walking, joint pain, back pain, limited range of motion, numbness or tingling Skin Skin: No redness, dry skin, itching, lesions, wounds or rash Neuro Neurology: No weakness, frequent falls, headache(s), abnormal hearing, abnormal walking, numbness, tingling, abnormal speech, dizziness or memory loss Psych Psychiatric: No change in appetite, No memory loss, No anxiety, No depression, No Thoughts of harming yourself/Others Endo Endocrine: No fatigue, excessive sweating, cold intolerance, increased thirst/drinking, heat intolerance, flushing or increased hunger Aller/Imm Allergy/Immunologic: No wheezing, itchy eyes, hives or seasonal allergy symptoms Blade/Lymp Hematologic/Lymphatic: No easy bleeding, easy bruising or enlarged lymph nodes Exam Const General: cooperative, no acute distress Orientation: alert, awake, oriented x3 HENMT Head: atraumatic, normocephalic, normal to inspection Ears: hearing grossly normal bilaterally Resp Effort AND Inspection: normal respiratory effort, able to speak in complete sentences Auscultation: Bilateral: Clear to Auscultation Cardio Rate: regular rate Heart Sounds: S1 normal, S2 normal Other: Premature beats. Skin Other: Areas of ecchymosis noted. Upper extremities bilaterally. Neuro General: alert, awake, oriented x3, CN's II-XI intact bilaterally, moves all extremities Psych Appearance: grossly normal Mood: congruent mood Affect: normal affect Assessment AND Plan 1. COPD (chronic obstructive pulmonary disease) J44.9 Plan Status post recent exacerbation. Symptoms have improved. Continue Spiriva daily and albuterol as needed. 2. MDS (myelodysplastic syndrome), low grade D46.20 Plan Diagnosed in 2016 and is currently following up with Dr. Chavarria. Platelet function has remained less than 100, 000 with most recent platelet count of 70,000. Hemoglobin also at 9.6 g per DL. He has noted some lingering fatigue. Is also concerned about continued easy bruising and during his episode of COPD exacerbation was noted to have hemoptysis. Patient is currently on baby aspirin, will discontinue due to increased risk of bleeding. Continue follow-up with hematology. Repeat CBC ordered. Orders Orders: 3. Essential hypertension I10 Plan Stable. Mildly elevated at this visit however he typically runs low. Advised to continue blood pressure log. Continue current medication. Lifestyle and dietary modifications also encouraged. 4. Type 2 diabetes mellitus E11.9 Plan Stable. Continue current medication. A1C ordered. This note was generated with [employer] dictation software. It may contain incorrect words, spelling, and punctuation that were not noted in checking the note before signing. Orders Orders: Coding Level of Care Code Off vis,est,level 4 Diagnoses COPD (chronic obstructive pulmonary disease) J44.9 MDS (myelodysplastic syndrome), low grade D46.20 Essential hypertension I10 Hypertension type: essential hypertension Type 2 diabetes mellitus E11.9 05/17/18 1518 <Electronically signed by Roc Martinez MD> Date Roc Martinez MD Cosigner Signature: Date (if applicable) CC: CBC W/DIFF, AUTOMATED Collected: 05/17/2018 Status: C Source: YOSI 10:23 AM [facility] REPOSITORY TYPE CODE TESTS RESULT OUT OF RANGE REFERENCE UNITS LAB L100.1000 4.4-11.0 K/mm3 Normal WBC 4.7 LAB L100.1200 4.6-6.2 M/mm3 Low RBC 3.62 LAB L100.1300 13.0-16.5 g/dl Low HGB 10.2 LAB L100.1400 40-54 % Low HCT 31.3 LAB L100.1500 80-94 fL Normal MCV 86.5 LAB L100.1600 27.0-32.0 pg Normal MCH 28.2 LAB L100.1700 32-36 g/gl Normal MCHC 32.6 LAB L100.1810 11.6-14.6 % High RDW CV 21.9 LAB L100.1820 35.1-43.9 fl High RDW SD 64.0 LAB L100.1900 150-450 K/mm3 Low PLT 70 LAB L100.2100 47-70 % Normal NEUT% 61.6 LAB L100.2200 19-41 % Normal LY% 27.2 LAB L100.2300 0-10 % Normal MONO% 9.6 LAB L100.2400 0-5 % Normal EO% 0.4 LAB L100.2500 0-1 % Normal BASO% 0.4 LAB L100.2550 0.0-0.9 % Normal IM GRAN % 0.800 Result Comment: IG% - Immature Granulocytes (promyelocytes, myelocytes and metamyelocytes) > 1% indicates that a LEFT SHIFT is Present. LAB L100.2620 2.0-7.7 X10 3/uL Absolute Normal Neut 2.9 LAB L100.2720 0.83-4.51 X10 3/ul Absolute Normal Lymph 1.28 LAB L100.5500 ADEQ PLT EST Normal MKD DEC LAB L100.7300 ANISO Normal 2+ LAB L100.7800 MACROCYTE Normal RARE LAB L100.8400 High SCHISTOCYTES 2+ LAB L100.9900 PATH REV Normal Reviewed Result Comment: Normocytic anemia and Clinical correlation necessary. Colby Anderson M.D. 05/18/18 AMENDED REPORT 05/18/18 1330 PATH REV previously reported as: December Performed By: #### L100.0100 #### [facility] [address] [place], [address] HEMOGLOBIN A1C Collected: 05/17/2018 Status: F Source: YOSI 10:23 AM [facility] REPOSITORY TYPE CODE TESTS RESULT OUT OF RANGE REFERENCE UNITS LAB L501.9985 4.2-6.3 % Normal HGB A1C 6.3 Performed By: #### L501.9985 #### [facility] [address] [place], [address] INTERNAL MEDICINE Observed: 05/07/2018 Status: F Source: [place]OS[place] OFFICE VISIT 4:27 PM [facility] REPOSITORY [facility] [address] [place] [address] [place] [address] OFFICE VISIT Date of Service: 05/07/18 MR#: [id number] Acct: [id number] Name: BRIGITTEANGEL G Rep #: [id number] : 1935 Provider: Jack Augustin NP Age/Sex: 82/M Location: [facility] Status: Signed Intake Vital Signs05/07/18 Height 5 ft 10 in 05/07/18 Blood Pressure 143/78 05/07/18 Blood Pressure Location Lt brachial 05/07/18 Blood Pressure Position Sitting Intake Visit Reasons: Shortness of breath Chief Complaint: Shortness of breath Is patient in pain?: No Allergies codeine Adverse Reaction (Severe, Verified 04/28/18 10:45) Unknown Medications Aspirin [Lo-Dose Aspirin EC] 81 mg PO DAILY 11/11/16 [History Confirmed 04/28/18] apple cider vinegar 300 mg tablet 450 mg PO DAILY 09/15/17 [History Confirmed 04/28/18] multivitamin with iron tablet 1 tab PO QDAY 09/15/17 [History Confirmed 04/28/18] mecobalamin (vitamin B12) 1,000 mcg disintegrating tablet,sublingual 1,000 mcg SUBLINGUAL QDAY 09/25/17 [History Confirmed 04/28/18] vitamin B complex-vitamin C-folic acid 0.8 mg tablet 1 tab PO QDAY 09/25/17 [History Confirmed 04/28/18] metoprolol tartrate 25 mg tablet 12.5 mg PO BID #90 tab 10/20/17 [Rx Confirmed 04/28/18] tiotropium bromide 18 mcg capsule with inhalation device 1 cap INHALATION QDAY #90 ea 11/27/17 [Rx Confirmed 04/28/18] lisinopril 2.5 mg tablet 2.5 mg PO QDAY #90 tab 12/01/17 [Rx Confirmed 04/28/18] simvastatin 20 mg tablet 20 mg PO QPM #60 tab 12/01/17 [Rx Confirmed 03/17/18] tamsulosin 0.4 mg capsule 0.4 mg PO DAILY #90 cap 02/03/18 [Rx Confirmed 04/28/18] metformin 500 mg tablet 500 mg PO BID #180 tab 03/11/18 [Rx Confirmed 04/28/18] albuterol sulfate HFA 90 mcg/actuation aerosol inhaler 1 puff INHALATION Q6H PRN #8.5 g 04/28/18 [Rx Confirmed 04/28/18] levofloxacin 750 mg tablet 750 mg PO DAILY #7 tab 05/05/18 [Rx] guaifenesin ER 1,200 mg tablet, extended release 12 hr 1,200 mg PO Q12H #20 tab 05/07/18 [Rx Confirmed 05/07/18] prednisone 20 mg tablet 40 mg PO QDAY #10 tab 05/07/18 [Rx Confirmed 05/07/18] PFSH Medical History Premature atrial contractions (Acute) MDS (myelodysplastic syndrome), low grade (Chronic) Paroxysmal atrial tachycardia (Acute) Paroxysmal ventricular tachycardia (Acute) Premature ventricular contraction (Acute) Palpitations (Acute) HTN (hypertension) (Chronic) Hyperlipidemia (Chronic) Hypertension (Chronic) Hyperlipemia (Chronic) Type 2 diabetes mellitus (Chronic) COPD (chronic obstructive pulmonary disease) (Chronic) Bilateral hip pain (Acute) Contusion of right knee (Acute) Inguinal hernia (Acute) Low back pain (Acute) Prepatellar bursitis, right knee (Acute) Thrombocytopenia (Acute) Arthritis (Chronic) BPH (benign prostatic hyperplasia) (Chronic) BPH (benign prostatic hyperplasia) (Chronic) MDS (myelodysplastic syndrome), low grade (Chronic) Surgical History H/O hernia repair (Chronic) 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) History of hand surgery (Resolved) Family History Mother Cancer, Onset Age: 59 Pancreatic Father Cancer, Onset Age: 44 Intestinal Brother Cancer, Onset Age: 78 Son CVA (cerebral vascular accident) Diabetes Mother Cancer Social History Smoking Status: Former smoker how long ago did patient quit smokin second hand exposure: No alcohol intake: never substance use type: does not use what type of physical activity do you participate in: none HPI HPI Chief Complaint: Shortness of breath Details: ANGEL BRIGGS, is a 82 M who presents to the office today for an acute visit of worsening shortness of breath. He has a past medical history as listed above. His most recent office visit he was seen for complaints of hemoptysis. A CT was done on 05/04/2018 which demonstrated Hypoinflated lungs with bibasilar airspace disease and small effusions.Throughout both lungs, small nodular densities demonstrating some spiculation. Given their appearance, more likely related to inflammation or infection. Less likely malignancy however, not excluded. Repeat chest CT will be needed in 3-6 months to reevaluate. Patient was started on Levaquin and did not start his first dose until yesterday. He states that the hemoptysis is minimal, however he is now having increasing shortness of breath and an increase in yellow sputum. He states that his shortness of breath is worse with exertion. He does not wish to be seen in the emergency department at this time and wishes to continue trialing outpatient treatment. He understands the risks and still wishes to undergo outpatient treatment of his symptoms. He otherwise denies any fever, chills, nausea, vomiting, chest pain or pressure, orthopnea, lower extremity edema, syncope or presyncopal episodes. ROS Const Constitutional: No weight change, body ache, chills, fatigue, sleep problems, fever(s), change in appetite, snoring, weakness, frequent falls, headache(s) or excessive sweating Eyes Eyes: No change in vision, eye pain, light sensitivity or blurry vision ENT ENT: No headache(s), abnormal hearing, ear pain, tinnitus, nasal congestion, sore throat or neck pain Resp Respiratory: Positive for cough Cough: Yes productive, shortness of breath and wheezing; no snoring Cardio Cardiology: No excessive sweating, chest pain at rest, chest pain with exertion, shortness of breath, dyspnea on exertion, palpitations, orthopnea or lightheadedness Gastro GI: No abdominal pain, change in bowel habits, constipation, diarrhea, vomiting, nausea/dyspepsia or cramping Genitourinary Male: No painful urination, urinary incontinence, urinary frequency, urinary urgency, blood in urine, testicle pain or other Musc Musculoskeletal: No neck pain, abnormal walking, joint pain, back pain, limited range of motion, numbness, tingling or muscle weakness Skin Skin: No redness, dry skin, itching, lesions, wounds or rash Neuro Neurology: No weakness, frequent falls, headache(s), abnormal hearing, abnormal walking, numbness, tingling, abnormal speech, dizziness or memory loss Psych Psychiatric: No change in appetite, No memory loss, No anxiety, No depression, No Thoughts of harming yourself/Others Endo Endocrine: No fatigue, excessive sweating, cold intolerance, increased thirst/drinking, heat intolerance, flushing or increased hunger Aller/Imm Allergy/Immunologic: Positive for wheezing; no itchy eyes, hives or seasonal allergy symptoms Blade/Lymp Hematologic/Lymphatic: No easy bleeding, easy bruising or enlarged lymph nodes Exam Const General: cooperative, healthy appearing, no acute distress Nutritional Appearance: average body habitus, well nourished Orientation: alert, oriented x3 Limitations: mental status not altered [facility] Head: normal to inspection, normocephalic, atraumatic Ears: hearing grossly normal bilaterally, TM normal on the left, TM normal on the right Nose: external nose normal, no nasal polyps, septum normal, no nasal discharge Face and sinus: normal facial exam, face symmetric, normal transillumination of the sinuses Mouth: oral mucosae normal, tongue normal Throat: uvula midline, posterior oropharynx normal Eyes General: appearance normal, both eyes and all related structures Visual Dudley: normal visual dudley by confrontation Alignment and Position: alignment normal Eyelids: eyelids normal Conjunctivae: conjunctivae normal Sclera: sclerae normal Pupils: PERRL Resp Effort AND Inspection: normal respiratory effort, able to speak in complete sentences, no cough, no audible wheezes, no respiratory distress, symmetric chest movement Auscultation: Bilateral: Clear to Auscultation, Diminished Lung Sounds Percussion: percussion normal Cardio Palpation: normal PMI Rate: regular rate Heart Sounds: S1 normal, S2 normal, normal S1 and S2, no click, no gallops, no murmurs, no rubs GI Inspection: normal to inspection Auscultation: normal bowel sounds, no hyperactive bowel sounds, no hypoactive bowel sounds Palpation: soft, no hepatosplenomegaly Musc Musculoskeletal: No muscle weakness Skin General: no rashes or lesions noted, elasticity normal, turgor normal Lesions: no lesions Rashes: no rashes Neuro General: alert, awake, oriented x3, CN's II-XI intact bilaterally Speech: speech normal Gait: normal gait Motor: muscle tone normal throughout Extrem General: normal to inspection, normal gait, no edema, no pedal edema Psych Appearance: grossly normal Mental Status: mental status grossly normal Affect: normal affect Attitude: cooperative Thought Process: normal Assessment AND Plan Problems 1. COPD exacerbation J44.1 2. Shortness of breath R06.02 3. Bronchitis J40 Plan Patient appears to be an exacerbation of his COPD. Recent CT as described above and patient was started on Levaquin. Will add Mucinex and a 5 day burst of prednisone to his medication regimen. He does have a follow-up appointment scheduled with pulmonology. Did discuss with patient that his symptoms would warrant him to be seen and evaluated in the emergency department, however he wishes to continue with outpatient therapy at this time. He understands the risks. Instructed patient again that if if symptoms worsen over the weekend he should immediately be seen in the emergency department. Patient verbalized understanding. A DuoNeb treatment was given in the office and the patient's symptoms did improve. Instructed patient that he can take his albuterol inhaler every 4 hours as needed for shortness of breath. Did walk patient around the office and his O2 saturation remained at 96% on room air with exertion Orders Orders: Medications New: Plan Detail Follow Up 1 week or sooner if needed Coding Level of Care Code Off vis,est,level 3 Diagnoses COPD exacerbation J44.1 Shortness of breath R06.02 Bronchitis J40 05/07/18 1181 <Electronically signed by Jack ROY> Date Jack PAYNEC Cosigner Signature: Date (if applicable) CC: CHEST WITHOUT Observed: 05/04/2018 Status: F Source: YOSI CONTRAST 9:38 AM [facility] REPOSITORY [facility] Imaging Services [address] [place] [address] Chest without Contrast MR#: [id number] Acct: [id number] Name: ANGEL BRIGGS Rep #: [id number] : 1935 M 82 From: Shine Dumont DO PCP: Roc Martinez MD Status: REG CLI Study: Chest without Contrast Date of Exam: 05/04/18 Exam# [id number] Ordering Dr: Jack Augustin STUDY: CT CHEST WITHOUT CONTRAST REASON FOR EXAM: Male, 82 years old. Shortness of breath RADIATION DOSAGE (If Supplied By Facility): CTDIvol = ( 17.54 ) mGy, DLP = ( 626.66 ) mGycm TECHNIQUE: Transaxial imaging was performed without the administration of intravenous contrast material. Individualized dose optimization techniques were used for this CT. COMPARISON: None. FINDINGS: Unenhanced thyroid is grossly within normal limits. The lungs are adequately inflated. There is bibasilar airspace disease with small effusions. Throughout both lungs, there are small nodular densities demonstrating some spiculation suggesting malignancy versus inflammation or infection. Largest of these is in the left upper lobe measuring 3.4 x 2.6 cm. Another is seen in the inferior aspect of the left upper lobe measuring 1 x 1.1 cm and several punctate ones are in the left lower lobe and right lower lobe. Early emphysematous changes noted in the upper lobes. Borderline cardiomegaly. Unremarkable pericardium. Multiple small mediastinal lymph nodes are noted. Pretracheal lymph node noted measuring 9 x 8 mm. Subcarinal lymph node noted measuring 2.5 x 1.2 cm. Normal hilar regions. Normal unenhanced pulmonary arteries. There is atherosclerotic tortuosity of the aortic arch and descending thoracic aorta. There are multi-level degenerative changes of the thoracic spine. There is no demonstrated abnormality of the visualized upper abdomen. CT/Chest without Contrast IMPRESSION: 1. Hypoinflated lungs with bibasilar airspace disease and small effusions. Throughout both lungs, small nodular densities demonstrating some spiculation. Given their appearance, more likely related to inflammation or infection. Less likely malignancy however, not excluded. Repeat chest CT will be needed in 3-6 months to reevaluate. 2. Early emphysematous changes in the upper lobes. 3. Several nonspecific mediastinal lymph nodes Electronically Signed: Shine Dumont DO at 7:54 EDT Tel , Service support , CC: Roc Martinez MD; Jack Augustin NP Medical Physics Teacher: Signed INTERNAL MEDICINE Observed: 04/29/2018 Status: F Source: MOBILE OFFICE VISIT 10:29 AM [facility] [address] [place] [address] [address] [place] [address] OFFICE VISIT Date of Service: 04/28/18 MR#: [id number] Acct: [id number] Name: ANGEL BRIGGS Rep #: [id number] : 1935 Provider: Jack Augustin NP Age/Sex: 82/M Location: [facility] Status: Signed Intake Vital Signs04/28/18 Height 5 ft 10 in 04/28/18 Weight: 230 lb 04/28/18 Body Mass Index (BMI) 33.0 04/28/18 Blood Pressure 110/73 Intake Visit Reasons: Shortness of breath Chief Complaint: Shortness of breath Is patient in pain?: No Allergies codeine Adverse Reaction (Severe, Verified 04/28/18 10:45) Unknown Medications Aspirin [Lo-Dose Aspirin EC] 81 mg PO DAILY 11/11/16 [History Confirmed 04/28/18] apple cider vinegar 300 mg tablet 450 mg PO DAILY 09/15/17 [History Confirmed 04/28/18] multivitamin with iron tablet 1 tab PO QDAY 09/15/17 [History Confirmed 04/28/18] mecobalamin (vitamin B12) 1,000 mcg disintegrating tablet,sublingual 1,000 mcg SUBLINGUAL QDAY 09/25/17 [History Confirmed 04/28/18] vitamin B complex-vitamin C-folic acid 0.8 mg tablet 1 tab PO QDAY 09/25/17 [History Confirmed 04/28/18] metoprolol tartrate 25 mg tablet 12.5 mg PO BID #90 tab 10/20/17 [Rx Confirmed 04/28/18] tiotropium bromide 18 mcg capsule with inhalation device 1 cap INHALATION QDAY #90 ea 11/27/17 [Rx Confirmed 04/28/18] lisinopril 2.5 mg tablet 2.5 mg PO QDAY #90 tab 12/01/17 [Rx Confirmed 04/28/18] simvastatin 20 mg tablet 20 mg PO QPM #60 tab 12/01/17 [Rx Confirmed 03/17/18] tamsulosin 0.4 mg capsule 0.4 mg PO DAILY #90 cap 02/03/18 [Rx Confirmed 04/28/18] metformin 500 mg tablet 500 mg PO BID #180 tab 03/11/18 [Rx Confirmed 04/28/18] albuterol sulfate HFA 90 mcg/actuation aerosol inhaler 1 puff INHALATION Q6H PRN #8.5 g 04/28/18 [Rx Confirmed 04/28/18] PFSH Medical History Premature atrial contractions (Acute) MDS (myelodysplastic syndrome), low grade (Chronic) Paroxysmal atrial tachycardia (Acute) Paroxysmal ventricular tachycardia (Acute) Premature ventricular contraction (Acute) Palpitations (Acute) HTN (hypertension) (Chronic) Hyperlipidemia (Chronic) Hypertension (Chronic) Hyperlipemia (Chronic) Type 2 diabetes mellitus (Chronic) COPD (chronic obstructive pulmonary disease) (Chronic) Bilateral hip pain (Acute) Contusion of right knee (Acute) Inguinal hernia (Acute) Low back pain (Acute) Prepatellar bursitis, right knee (Acute) Thrombocytopenia (Acute) Arthritis (Chronic) BPH (benign prostatic hyperplasia) (Chronic) BPH (benign prostatic hyperplasia) (Chronic) MDS (myelodysplastic syndrome), low grade (Chronic) Surgical History H/O hernia repair (Chronic) 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) History of hand surgery (Resolved) Family History Mother Cancer, Onset Age: 59 Pancreatic Father Cancer, Onset Age: 44 Intestinal Brother Cancer, Onset Age: 78 Son CVA (cerebral vascular accident) Diabetes Mother Cancer Social History Smoking Status: Former smoker how long ago did patient quit smokin second hand exposure: No alcohol intake: never substance use type: does not use what type of physical activity do you participate in: none HPI HPI Chief Complaint: Shortness of breath Details: ANGEL BRIGGS, is a 82 M who presents to the office today for acute complaint of increased shortness of breath with exertion and mild hemoptysis. His past medical history includes MDS, hypertension, paroxysmal atrial tachycardia, paroxysmal ventricular tachycardia, hypertension, hyperlipidemia, type 2 diabetes, and COPD. Patient stated that he started having shortness of breath 3 weeks ago with exertion but resolves with rest. Patient stated sometimes when he becomes short of breath that he does notice a slight wheeze. Also, patient stated that when he coughs he brings up sputum in the morning that has a adrian color throughout it, that started 3 weeks ago. Patient continues to take his Spiriva daily, but stated he does not have a rescue inhaler. Patient stated he has had a history of smoking for 30 years. Patient also wanted to discuss referral to pulmonary due to his recent shortness of breath, adrian colored sputum and his diagnosis of COPD. The patient denies any sick contacts and denies any other aggravating or alleviating symptoms. The patient otherwise denies any fever, chills, nausea, vomiting, dizziness, chest pain or pressure, palpitations, orthopnea, lower extremity edema, syncope or presyncopal episodes. ROS Const Constitutional: No chills, fatigue, fever(s), frequent falls, malaise, weakness, sleep problems or change in appetite Eyes Eyes: No blurry vision, change in vision, double vision, discharge or visual disturbances ENT ENT: No abnormal hearing, ear pain, ear pressure, tinnitus or dizziness/vertigo Resp Respiratory: Positive for shortness of breath sob: SOB with activity, wheezing (occassional ), excessive phlegm production and hemoptysis; no cough Cardio Cardiology: No chest pain at rest, chest pain with exertion, shortness of breath, dyspnea on exertion, generalized swelling, irregular heart rhythm, lightheadedness, orthopnea, fast heart rate or palpitations Gastro GI: No abdominal pain, change in bowel habits, constipation, diarrhea, nausea/dyspepsia or vomiting Genitourinary Male: No difficulty urinating, burning urination, painful urination, urinary incontinence, urinary frequency, urinary urgency, urinary hesitancy, urinary retention, blood in urine, Frequent nighttime urination/ nocturia, sexual problems, testicle lump or testicle pain Musc Musculoskeletal: Positive for back pain (chronic); no joint pain, joint swelling, limited range of motion, muscle weakness, numbness or tingling Skin Skin: No change in skin color, itching, rash or wounds Breast Breast: No breast lump or breast pain Neuro Neurology: No frequent falls, weakness, abnormal hearing, numbness, tingling, unsteady gait/balance, dizziness, loss of vision, memory loss or visual disturbances Psych Psychiatric: No memory loss, No anxiety, No change in appetite, No depression, No Thoughts of harming yourself/Others Endo Endocrine: No fatigue, heat intolerance, increased thirst/drinking, increased hunger or increased urination Aller/Imm Allergy/Immunologic: Positive for wheezing (occassional ); no itchy eyes or seasonal allergy symptoms Blade/Lymp Hematologic/Lymphatic: No easy bleeding, easy bruising or enlarged lymph nodes Exam Const General: cooperative, healthy appearing, no acute distress Nutritional Appearance: average body habitus, well nourished Orientation: alert, oriented x3 Limitations: mental status not altered [facility] Head: normal to inspection, normocephalic, atraumatic Ears: hearing grossly normal bilaterally, TM normal on the left, TM normal on the right Nose: external nose normal, no nasal polyps, septum normal, no nasal discharge Face and sinus: normal facial exam, face symmetric, normal transillumination of the sinuses Mouth: oral mucosae normal, tongue normal Throat: uvula midline, posterior oropharynx abnormal (small ruptured capillaries present posterior orohpharynx ) Eyes General: appearance normal, both eyes and all related structures Visual Dudley: normal visual dudley by confrontation Alignment and Position: alignment normal Eyelids: eyelids normal Conjunctivae: conjunctivae normal Sclera: sclerae normal Pupils: PERRL Resp Effort AND Inspection: normal respiratory effort, able to speak in complete sentences, no cough, no audible wheezes, no respiratory distress, symmetric chest movement Auscultation: Bilateral: Clear to Auscultation, Expiratory Wheezes (bases on forced expiration) Percussion: percussion normal Cardio Palpation: normal PMI Rate: regular rate Heart Sounds: S1 normal, S2 normal, normal S1 and S2, no click, no gallops, no murmurs, no rubs GI Inspection: normal to inspection Auscultation: normal bowel sounds, no hyperactive bowel sounds, no hypoactive bowel sounds Palpation: soft, no hepatosplenomegaly Musc Musculoskeletal: No muscle weakness Skin General: no rashes or lesions noted, elasticity normal, turgor normal Lesions: no lesions Rashes: no rashes Neuro General: alert, awake, oriented x3, CN's II-XI intact bilaterally Speech: speech normal Gait: normal gait Motor: muscle tone normal throughout Extrem General: normal to inspection, normal gait, no edema, no pedal edema Psych Appearance: grossly normal Mental Status: mental status grossly normal Affect: normal affect Attitude: cooperative Thought Process: normal Assessment AND Plan Problems 1. COPD (chronic obstructive pulmonary disease) J44.9 2. Cough with hemoptysis R04.2 3. Shortness of breath on exertion R06.02 Plan 3 weeks ago patient developed worsening shortness of breath with exertion and cough with hemoptysis in the AM. Hemoptysis most likely due to small ruptured capillaries present on exam in posterior oropharynx from coughing. Patient uses Spiriva once a day. Will add a rescue inhaler as needed for shortness of breath. Patient will be referred to pulmonary as per request and PFTs will be ordered because he has not had PFTs in the past. A sputum culture will be obtained and a CT of the chest ordered due to history of smoking and hemoptysis. Also will obtain a CBC due to low platelet count and MDS in the past. Patient to follow-up as previously scheduled or symptoms worsen. Orders Orders: Referrals: Medications New: albuterol sulfate HFA 90 mcg/actuation (Vento1 puff Inhalation Q6H PRN shortness of breat mauricio HFA) h or wheezing Plan Detail Follow Up Patient to follow-up as previously scheduled or symptoms worsen Coding Level of Care Code Off vis,est,level 3 Diagnoses COPD (chronic obstructive pulmonary disease) J44.9 Cough with hemoptysis R04.2 Shortness of breath on exertion R06.02 04/29/18 1029 <Electronically signed by Jack ROY> Date Jack ROY Cosigner Signature: Date (if applicable) CC: Observed: 04/29/2018 Status: F Source: [facility] [place] 9:19 AM [facility] REPOSITORY Gram Stain Acceptable Specimen? Yes (<25 Epithelial cells per/lpf) Gram Stain 3+ Gram positive cocci Rare White Blood Cells No Epithelial cells Resp. Culture ORGANISM 1: Klebsiella pneumoniae sp ozaen Amount Growth 1+ Klebsiella pneumoniae sp ozaen: REACTION Amoxacillin/Clavulanic Acid $ <=2 S Ampicillin $ <=2 R Ampicillin/Sulbactam $ <=2 S Cefazolin $ <=4 R Cefepime $ <=1 R Ceftriaxone $ <=1 R Ciprofloxacin $ <=0.25 S ESBL + Ertapenim $$$ <=0.5 S Gentamicin $ <=1 S Imipenem *NF <=0.25 S Levofloxacin $ <=0.12 S Piperacillin/Tazobactam $$ <=4 S Tobramycin $ <=1 S Trimethoprim/Sulfametho $ <=20 S (NF) indicates non-formulary drug at [facility]. Approval by Infectious Disease Specialist required before non-formulary drugs may be ordered and/or dispensed. Performed By: #### [id number] #### [facility] [address] [place], [address] CBC W/DIFF, AUTOMATED Collected: 04/28/2018 Status: F Source: YOSI 12:45 PM [facility] REPOSITORY TYPE CODE TESTS RESULT OUT OF RANGE REFERENCE UNITS LAB L100.1000 4.4-11.0 K/mm3 Low WBC 4.3 LAB L100.1200 4.6-6.2 M/mm3 Low RBC 3.35 LAB L100.1300 13.0-16.5 g/dl Low HGB 9.6 LAB L100.1400 40-54 % Low HCT 29.1 LAB L100.1500 80-94 fL Normal MCV 86.9 LAB L100.1600 27.0-32.0 pg Normal MCH 28.7 LAB L100.1700 32-36 g/gl Normal MCHC 33.0 LAB L100.1810 11.6-14.6 % High RDW CV 20.8 LAB L100.1820 35.1-43.9 fl High RDW SD 60.4 LAB L100.1900 150-450 K/mm3 Low PLT 68 LAB L100.2100 47-70 % Normal NEUT% 65.6 LAB L100.2200 19-41 % Normal LY% 24.2 LAB L100.2300 0-10 % Normal MONO% 8.1 LAB L100.2400 0-5 % Normal EO% 1.2 LAB L100.2500 0-1 % Normal BASO% 0.2 LAB L100.2550 0.0-0.9 % Normal IM GRAN % 0.700 Result Comment: IG% - Immature Granulocytes (promyelocytes, myelocytes and metamyelocytes) > 1% indicates that a LEFT SHIFT is Present. LAB L100.2620 2.0-7.7 X10 3/uL Normal Absolute Neut 2.9 LAB L100.2720 0.83-4.51 X10 3/ul Normal Absolute Lymph 1.05 LAB L100.4500 SMEAR Normal COMMENT Result Comment: SLIDE SCANNED - 1+ ANISO, RARE RBC FRAGMENTS, 1+ LARGE PLTS. Performed By: #### L100.0100 #### [facility] [address] [place], [place], [address] SPINE LUMBAR Observed: 03/25/2018 Status: F Source: YOSI (ROUTINE) 12:05 PM [facility] [place] [place] REPOSITORY [facility] Imaging Services [address] [place] [address] Spine Lumbar (Routine) MR#: [id number] Acct: [id number] Name: ANGEL BRIGGS Rep #: [id number] : 1935 M 82 From: Radha Bradshaw MD PCP: Roc Martinez MD Status: REG CLI Study: Spine Lumbar (Routine) Date of Exam: 03/25/18 Exam# [id number] Ordering Dr: Jack Augustin WIRER MAINTENANCE-C STUDY: MRI LUMBAR SPINE WITHOUT CONTRAST REASON FOR EXAM: Male, 82 years old. LOW BACK PAIN pain low back and bilat legs x6 months TECHNIQUE: Standardized fat and water weighted pulse sequences were obtained in the sagittal and axial planes. COMPARISON: X-ray September 21, 2017 FINDINGS: Normal lumbar lordosis. There is no substantial scoliosis. Normal conus medullaris that terminates at the T12-L1 level. 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 There is minimal anterolisthesis L3-4. There is multilevel disc desiccation. There is loss of disc height at L1-2. Vertebral body heights are maintained. Bone marrow signal is normal. There is multilevel facet arthropathy and ligamentum flavum hypertrophy. This is severe at L3-4 and L4-5. T12/L1: There is a diffuse bulge. There is mild central canal stenosis and mild bilateral neuroforaminal stenosis. L1/2: There is a diffuse bulge. There is mild central canal stenosis and moderate bilateral neuroforaminal stenosis. L2/3: There is a diffuse bulge. There is mild central canal stenosis and moderate left and mild to moderate right neuroforaminal stenosis. L3/4: There is a diffuse bulge. There is severe central canal stenosis and severe right and moderate left neuroforaminal stenosis. L4/5: There is a diffuse bulge. There is moderate central canal stenosis and severe right and moderate to severe left neuroforaminal stenosis. L5/S1: There is a diffuse bulge. There is impression on the ventral thecal sac and moderate left and mild to moderate right neuroforaminal stenosis. Normal visualized sacral ala. Normal visualized paraspinous soft tissue structures. MRI/Spine Lumbar (Routine) IMPRESSION: Multilevel degenerative changes, as described above, including facet arthropathy and ligamentum flavum hypertrophy. T12/L1: There is a diffuse bulge. There is mild central canal stenosis and mild bilateral neuroforaminal stenosis. L1/2: There is a diffuse bulge. There is mild central canal stenosis and moderate bilateral neuroforaminal stenosis. L2/3: There is a diffuse bulge. There is mild central canal stenosis and moderate left and mild to moderate right neuroforaminal stenosis. L3/4: There is a diffuse bulge. There is severe central canal stenosis and severe right and moderate left neuroforaminal stenosis. L4/5: There is a diffuse bulge. There is moderate central canal stenosis and severe right and moderate to severe left neuroforaminal stenosis. L5/S1: There is a diffuse bulge. There is moderate left and mild to moderate right neuroforaminal stenosis. Electronically Signed: Radha Bradshaw MD at 14:05 EDT , Service support , CC: Roc Martinez MD; Jack Augustin NP Medical Physics Teacher: Signed INTERNAL MEDICINE Observed: 03/18/2018 Status: F Source: YOSI OFFICE VISIT 10:18 AM [facility] [address] [place] [address] [address] [place] [address] OFFICE VISIT Date of Service: 03/17/18 MR#: [id number] Acct: [id number] Name: ANGEL BRIGGS Rep #: [id number] : 1935 Provider: Jack Augustin NP Age/Sex: 82/M Location: [facility] [place].[facility] Status: Signed Intake Vital Signs03/17/18 Height 5 ft 10 in Intake Visit Reasons: ORTHO SUGGEST MRI PRIOR TO APPT Chief Complaint: MRI desired Is patient in pain?: Yes (on bruises) Allergies codeine Adverse Reaction (Severe, Verified 03/17/18 11:47) Unknown Medications Aspirin [Lo-Dose Aspirin EC] 81 mg PO DAILY 11/11/16 [History Confirmed 03/17/18] apple cider vinegar 300 mg tablet 450 mg PO DAILY 09/15/17 [History Confirmed 03/17/18] multivitamin with iron tablet 1 tab PO QDAY 09/15/17 [History Confirmed 03/17/18] mecobalamin (vitamin B12) 1,000 mcg disintegrating tablet,sublingual 1,000 mcg SUBLINGUAL QDAY 09/25/17 [History Confirmed 03/17/18] vitamin B complex-vitamin C-folic acid 0.8 mg tablet 1 tab PO QDAY 09/25/17 [History Confirmed 03/17/18] metoprolol tartrate 25 mg tablet 12.5 mg PO BID #90 tab 10/20/17 [Rx Confirmed 03/17/18] tiotropium bromide 18 mcg capsule with inhalation device 1 cap INHALATION QDAY #90 ea 11/27/17 [Rx Confirmed 03/17/18] lisinopril 2.5 mg tablet 2.5 mg PO QDAY #90 tab 12/01/17 [Rx Confirmed 03/17/18] simvastatin 20 mg tablet 20 mg PO QPM #60 tab 12/01/17 [Rx Confirmed 03/17/18] tamsulosin 0.4 mg capsule 0.4 mg PO DAILY #90 cap 02/03/18 [Rx Confirmed 03/17/18] metformin 500 mg tablet 500 mg PO BID #180 tab 03/11/18 [Rx Confirmed 03/17/18] PFSH Medical History Premature atrial contractions (Acute) MDS (myelodysplastic syndrome), low grade (Chronic) Paroxysmal atrial tachycardia (Acute) Paroxysmal ventricular tachycardia (Acute) Premature ventricular contraction (Acute) Palpitations (Acute) HTN (hypertension) (Chronic) Hyperlipidemia (Chronic) Hypertension (Chronic) Hyperlipemia (Chronic) Type 2 diabetes mellitus (Chronic) COPD (chronic obstructive pulmonary disease) (Chronic) Bilateral hip pain (Acute) Contusion of right knee (Acute) Inguinal hernia (Acute) Low back pain (Acute) Prepatellar bursitis, right knee (Acute) Thrombocytopenia (Acute) Arthritis (Chronic) BPH (benign prostatic hyperplasia) (Chronic) BPH (benign prostatic hyperplasia) (Chronic) MDS (myelodysplastic syndrome), low grade (Chronic) Surgical History H/O hernia repair (Chronic) 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 Past medical history includes PACs, MDS, hypotension, paroxysmal atrial tachycardia, paroxysmal ventricular tachycardia, premature ventricular contraction, palpitation, hypertension, hyperlipidemia, type 2 diabetes, and COPD. Patient presented to the office today requesting an MRI for lumbar to low back pain that radiates down the right lower extremity. He referred himself to Dr. Duff,which she is requesting an MRI before appt. Low back pain that radiates to right hip started earlier this year in 2018 and has persisted. He describes the pain as an intermittent, sharp shooting pain that radiates down the right hip with ambulation and movement. He has tried ice 1 time with no effect, IcyHot with no effect, and only has tried OTC tylenol twice within 2 months with no effect. He denies numbness, tingling, bowel or bladder dysfunction, headache nausea, vomiting, chest pain or tightness. SOB or muscle weakness. He states he has been routinely seen by PT and chiropractic services without much relief. An xray of the lumbar spine showed degenerative changes in 09/2017. He also has multiple bruises to bilateral arms and right side of hip. He stated about 4- 5 days ago he was in the garage and tripped over something. Denies any further injury. ROS Const Constitutional: No weight change, body ache, chills, fatigue, sleep problems, fever(s), change in appetite, snoring, weakness, frequent falls, headache(s) or excessive sweating Eyes Eyes: No change in vision, eye pain, light sensitivity or blurry vision ENT ENT: No headache(s), abnormal hearing, ear pain, tinnitus, nasal congestion, sore throat or neck pain Resp Respiratory: No snoring, cough, shortness of breath or wheezing Cardio Cardiology: No excessive sweating, chest pain at rest, chest pain with exertion, shortness of breath, dyspnea on exertion, palpitations, orthopnea or lightheadedness Gastro GI: No abdominal pain, change in bowel habits, constipation, diarrhea, vomiting, nausea/dyspepsia or cramping Genitourinary Male: No painful urination, urinary incontinence, urinary frequency, urinary urgency, blood in urine, testicle pain or other Musc Musculoskeletal: Positive for back pain (wants ortho visit); no neck pain, abnormal walking, joint pain, limited range of motion, numbness, tingling or muscle weakness Skin Skin: No redness, dry skin, itching, lesions, wounds or rash Neuro Neurology: No weakness, frequent falls, headache(s), abnormal hearing, abnormal walking, numbness, tingling, abnormal speech, dizziness or memory loss Psych Psychiatric: No change in appetite, No memory loss, No anxiety, No depression, No Thoughts of harming yourself/Others Endo Endocrine: No fatigue, excessive sweating, cold intolerance, increased thirst/drinking, heat intolerance, flushing or increased hunger Aller/Imm Allergy/Immunologic: No wheezing, itchy eyes, hives or seasonal allergy symptoms Blade/Lymp Hematologic/Lymphatic: Positive for easy bruising; no easy bleeding or enlarged lymph nodes Exam Const General: cooperative, comfortable, no acute distress Nutritional Appearance: average body habitus, well nourished Orientation: alert, oriented x3 Limitations: mental status not altered [facility] Head: normal to inspection Ears: hearing grossly normal bilaterally Nose: external nose normal Eyes General: appearance normal, both eyes and all related structures Resp Effort AND Inspection: normal respiratory effort, able to speak in complete sentences, normal respiratory pattern, symmetric chest movement, no audible wheezes, no cough Auscultation: Bilateral: Clear to Auscultation Cardio Palpation: normal PMI Rate: regular rate Heart Sounds: S1 normal, S2 normal, normal S1 and S2, no click, no gallops, no murmurs, no rubs GI Inspection: normal to inspection Auscultation: normal bowel sounds, no hyperactive bowel sounds, no hypoactive bowel sounds Palpation: soft, no hepatosplenomegaly Musc Musculoskeletal: Yes joint tenderness; no muscle weakness or joint redness Cervical Spine: normal cervical lordosis and cervical ROM normal Thoracic/Lumbar Spine: pain with thoraco-lumbar ROM with lateral flexion to the right and with lateral flexion to the left, lumbar spinal tenderness Other: intermittent shooting pain from lower back to right hip with passive ROM Skin General: ecchymosis (bilateral arms, right hip) Lesions: no lesions Rashes: no rashes Trauma: no lacerations or abrasions Wounds: no wounds Neuro General: alert, oriented x3, awake, moves all extremities, CN's II-XI intact bilaterally Cranial Nerves: CN's II-XI intact bilaterally, accommodation normal, facial strength normal, tongue midline, PERRL Cognition: normal cognition Speech: speech normal Gait: normal gait Motor: strength 5/5 throughout, muscle tone normal throughout Sensory Exam: no sensory deficits noted Extrem General: no clubbing, cyanosis or edema, normal to inspection, full ROM, normal gait Psych Appearance: grossly normal Mental Status: mental status grossly normal Affect: normal affect Attitude: cooperative Thought Process: normal Assessment AND Plan Problems 1. Lumbar radiculopathy M54.16 2. DDD (degenerative disc disease), lumbar M51.36 3. Abnormal x-ray of lumbar spine R93.7 Plan MRI lumbar spine without contrast ordered due to abnormal x-ray, DDD, and lumbar radiculopathy. Referral to Dr. Duff per patient's request. Discussed red flag symptoms requiring urgent medical attention. Patient to follow-up as needed or symptoms worsen.Pt to continue with PT and chiropractor. Patient encouraged to routinely take his Tylenol arthritis medication and consider otc lidoderm patch. This note was generated with [employer] dictation software. It may contain incorrect words, spelling, and punctuation that were not noted in checking the note before signing. Orders Orders: Referrals: Plan Detail Follow Up As previously scheduled or sooner Coding Level of Care Code Off vis,est,level 3 Diagnoses Lumbar radiculopathy M54.16 DDD (degenerative disc disease), lumbar M51.36 Abnormal x-ray of lumbar spine R93.7 03/18/18 1018 <Electronically signed by Jack ROY> Date Jack ROY Cosigner Signature: Date (if applicable) CC: ONCOLOGY VISIT REPORT Observed: 03/17/2018 Status: F Source: YOSI 6:21 PM [facility] REPOSITORY [facility] [place] [address] OFFICE VISIT Date of Service: 03/17/18 1239 MR#: [id number] Acct: [id number] Name: ANGEL BRIGGS Rep #: [id number] : 1935 From: Holden Chavarria MD Age/Sex: 82/M Location: [facility] Status: Signed Subjective - Date of Service Date of Service:: 03/17/18 - Chief Complaint F/u for MDS. - History of Present Illness 82-year-old man presented with pancytopenia, bone marrow biopsy on 05/26/2016 showed early MDS. He is currently on observation, comes in for follow-up. He feels well. Fell in his garage last week, developed some bruises on the R forearm and R thigh. - Past Medical/Social History Past Medical History Past Medical History: Cirrhosis,Diabetes mellitus,Hyperlipidemia, Hypertension Other Past Medical History: BPH INGUINAL HERNIAS THROMBOCTOPENIA PALPATATIONS ARYTHMIA-PVC'S PANCYTOPENIA Past Surgical History Surgical: Hip replacement Other Surgical History: LEFT HAND SURGERY Family History Paternal Past Medical History: Unknown Maternal Past Medical History: Unknown Maternal History of Cancer: Esophageal cancer,Pancreatic cancer Social History Social History: No changes Smoking Status Former smoker Review of Systems Constitutional:: Denies: Fever, Sweats, Weight loss, Appetite change, Chills Cardiovascular:: Denies: Chest pain, Palpitations, Dyspnea on exertion, Orthopnea, PND, Shortness of breath Respiratory: Denies: Cough, Hemoptysis, Shortness of Breath, Wheezing Gastrointestinal:: Denies: Abdominal pain, Nausea, Vomiting, Diarrhea, Constipation, Hematochezia Genitourinary: Denies: Dysuria, Hematuria, 15, Flank pain Musculoskeletal:: Denies: Back pain, Myalgia, Arthralgia Skin: Reports: - - fell a week ago and has bruises on the R forearm, R thigh.. Denies: Rash, Skin Changes, Wounds Neurological:: Denies: Headache, Dizziness, Visual changes, Tinnitus, Hearing loss Psychiatric: Denies: Anxiety, Depression, Homicidal Ideations, Suicidal Ideations Vital Signs Height 5 ft 10 in Weight: 100.471 kg Weight in Pounds 221.5 lbs Pulse Ox 96 - Physical Exam General: Alert, Oriented x3, No apparent distress HEENT: Atraumatic, PERRLA, EOMI, Normocephalic Oropharynx:: Dry mucosa Neck:: Supple, Trachea midline. Negative for: JVD, bilateral Cardiac:: Regular rate, Regular rhythm, Normal S1, Normal S2. Negative for: Murmur Lungs: Clear to auscultation, Excusion symmetrical. Negative for: Rhonchi, Wheezes Abdomen:: Bowel sounds x 4, Soft, Non-tender, Non-distended. Negative for: Hepatosplenomegaly Extremities:: Negative for: Cyanosis, Edema Neurological: Neuro grossly intact Skin:: Lesions - Bruises R forearm and R thigh.. 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 Clinically stable with no indication for therapy. Plan is to continue observation. To observe bruises for now, if there is no improvement in another week, he should call the clinic. Return to clinic 3 months with CBC. Medications: Prescriptions This Visit Medication Instructions Recorded Aspirin [Lo-Dose Aspirin EC] 81 mg PO DAILY 11/11/16 Primary Care Provider: Roc Martinez MD Referring Provider: Holden Chavarria MD - Problem List (1) MDS (myelodysplastic syndrome), low grade Status: Chronic Code Visit Office Visits / Consults: 26200 OV L3 Est 03/17/18 9631 <Electronically signed by Holden Chavarria MD> Date Holden Fofanaigner Signature: Date (if applicable) CC: CBC W/DIFF, AUTOMATED Collected: 03/17/2018 Status: F Source: YOSI 10:48 AM [facility] REPOSITORY Order Comment: Reason for Laboratory Test . TYPE CODE TESTS RESULT OUT OF RANGE REFERENCE UNITS LAB L100.1000 4.4-11.0 K/mm3 Normal WBC 4.7 LAB L100.1200 4.6-6.2 M/mm3 Low RBC 3.79 LAB L100.1300 13.0-16.5 g/dl Low HGB 11.1 LAB L100.1400 40-54 % Low HCT 32.5 LAB L100.1500 80-94 fL Normal MCV 85.8 LAB L100.1600 27.0-32.0 pg Normal MCH 29.3 LAB L100.1700 32-36 g/gl Normal MCHC 34.2 LAB L100.1810 11.6-14.6 % High RDW CV 18.9 LAB L100.1820 35.1-43.9 fl High RDW SD 55.7 LAB L100.1900 150-450 K/mm3 Low PLT 58 LAB L100.2100 47-70 % Normal NEUT% 59.3 LAB L100.2200 19-41 % Normal LY% 33.9 LAB L100.2300 0-10 % Normal MONO% 4.9 LAB L100.2400 0-5 % Normal EO% 1.3 LAB L100.2500 0-1 % Normal BASO% 0.2 LAB L100.2550 0.0-0.9 % Normal IM GRAN % 0.400 Result Comment: IG% - Immature Granulocytes (promyelocytes, myelocytes and metamyelocytes) > 1% indicates that a LEFT SHIFT is Present. LAB L100.2620 2.0-7.7 X10 3/uL Normal Absolute Neut 2.8 LAB L100.2720 0.83-4.51 X10 3/ul Normal Absolute Lymph 1.60 LAB L100.4500 Normal SMEAR COMMENT COMMENT Result Comment: SLIDE SCANNED - RARE RBC FRAGMENTS, 1+ LARGE PLTS. Performed By: #### L100.0100, L500.4050 #### [facility] [address] [place], [place], [address] COMPREHENSIVE METABOLIC Collected: 03/17/2018 Status: F Source: YOSI ELLIS 10:48 AM [facility] REPOSITORY Order Comment: Reason for Laboratory Test . TYPE CODE TESTS RESULT OUT OF RANGE REFERENCE UNITS LAB L501.0100 74-106 mg/dL High GLU 113 Result Comment: Fasting Glucose result from 100 to 125 mg/dL suggests IMPAIRED HOMEOSTASIS per A.D.A. criteria. Please note revised GLUCOSE reference range effective 2017. LAB L501.1000 7-18 mg/dL High BUN 20 LAB L501.1100 0.70-1.30 mg/dL High CREAT,SERUM 1.35 Result Comment: The validity of the calculated GFR AND GFRAA in patients over 70 years has not been determined. Clinical correlation is essential. LAB L501.1110 >60 mL/min Low EST GFR 54 Result Comment: Non- GFR Calc LAB L501.1115 >60 mL/min Normal EST GFR - AA 65 Result Comment: GFR Calc LAB L501.1255 ml/min Normal Estimated CRCL 44.31 LAB L501.1300 10-20 RATIO Normal BUN/CRE 14.8 LAB L501.1500 6.4-8. g/dL Normal 2 T PROT 7.2 LAB L501.1800 3.2-5. g/dL Normal 0 ALB 3.9 LAB L501.1950 2.2-4. g/dL Normal 2 GLOB 3.3 LAB L501.2000 0.9-2. RATIO Normal 4 A/G 1.2 LAB L501.2200 8.5-10 mg/dL Normal .1 CA 8.6 LAB L501.4100 15-37 U/L Normal AST 28 LAB L501.4305 45-117 U/L Normal ALK P 68 LAB L501.4405 16-61 U/L Normal ALT 47 LAB L501.4600 0.20-1 mg/dL Normal .00 T BILI 0.90 LAB L501.5300 136-14 mmol/L Normal 5 NA 142 LAB L501.5600 3.5-5. mmol/L Normal 1 K 4.8 LAB L501.5900 98-107 mmol/L Normal CL 106 LAB L501.6100 21.0-3 mmol/L Normal 2.0 CO2 28.0 LAB L501.6200 5-15 Normal GAP 8 Performed By: #### L100.0100, L500.4050 #### [facility] [address] [facility] [place], [place], [address] BASIC METABOLIC Collected: 02/04/2018 Status: F Source: YOSI PROFILE (BMP) 6:00 AM [facility] REPOSITORY TYPE CODE TESTS RESULT OUT OF RANGE REFERENCE UNITS LAB L501.0100 74-106 mg/dL High GLU 107 Result Comment: Fasting Glucose result from 100 to 125 mg/dL suggests IMPAIRED HOMEOSTASIS per A.D.A. criteria. Please note revised GLUCOSE reference range effective 2017. LAB L501.1000 7-18 mg/dL High BUN 25 LAB L501.1100 0.70-1.30 mg/dL High CREAT,SERUM 1.40 Result Comment: The validity of the calculated GFR AND GFRAA in patients over 70 years has not been determined. Clinical correlation is essential. LAB L501.1110 >60 mL/min Low EST GFR 52 Result Comment: Non- GFR Calc LAB L501.1115 >60 mL/min Normal EST GFR - AA 63 Result Comment: GFR Calc LAB L501.1300 10-20 RATIO Normal BUN/CRE 17.9 LAB L501.2200 8.5-10.1 mg/dL CA Normal 8.6 LAB L501.5300 136-145 mmol/L NA Normal 142 LAB L501.5600 3.5-5.1 mmol/L K Normal 4.5 LAB L501.5900 98-107 mmol/L CL Normal 106 LAB L501.6100 21.0-32.0 mmol/L Normal CO2 29.0 LAB L501.6200 5-15 Normal GAP 7 Performed By: #### L500.2500 #### [facility] [address] [place], [address] MICROALB:CREAT Collected: 02/04/2018 Status: F Source: YOSI RATIO,RANDOM UR 6:00 AM [facility] REPOSITORY Order Comment: MIACRE FOR WIRER MAINTENANCE AUGUSTIN TYPE CODE TESTS RESULT OUT OF RANGE REFERENCE UNITS LAB L501.1200 NO RANGE EST. mg/dL Normal UR CREAT 132.00 LAB L502.0500 NO RANGE EST. mg/L Normal 147.0 MICROALBUMIN ,UR LAB L502.0600 <30 mg/g CRE mg/g CRE High 111.4 MALB:CREAT Performed By: #### L502.0250 #### [facility] [address] [place], [address] HEMOGLOBIN A1C Collected: 02/04/2018 Status: F Source: MOBILE 6:00 AM [facility] REPOSITORY TYPE CODE TESTS RESULT OUT OF RANGE REFERENCE UNITS LAB L501.9985 4.2-6.3 % Normal HGB A1C 5.5 Performed By: #### L501.9985 #### [facility] [address] [place], [address] INTERNAL MEDICINE Observed: 02/02/2018 Status: F Source: MOBILE OFFICE VISIT 9:32 AM [facility] [place] REPOSITORY [facility] [address] [place] [address] [place] [address] OFFICE VISIT Date of Service: 02/01/18 MR#: [id number] Acct: [id number] Name: ANGEL BRIGGS Rep #: [id number] : 1935 Provider: Roc Martinez MD Age/Sex: 82/M Location: [facility] Status: Signed Intake Vital Signs02/01/18 Height 5 ft 10 in Intake Visit Reasons: 1 MO FU Chief Complaint: follow-up visit Is patient in pain?: No Allergies codeine Allergy (Severe, Verified 12/25/17 09:30) Unknown Medications Aspirin [Lo-Dose Aspirin EC] 81 mg PO DAILY 11/11/16 [History Confirmed 12/25/17] Tamsulosin HCl [Flomax] 0.4 mg PO DAILY 06/01/17 [History Confirmed 12/25/17] metformin 500 mg tablet 500 mg PO BID #180 tab 09/09/17 [Rx Confirmed 12/25/17] apple cider vinegar 300 mg tablet mg PO 09/15/17 [History Confirmed 12/25/17] multivitamin with iron tablet 1 tab PO QDAY 09/15/17 [History Confirmed 12/25/17] mecobalamin (vitamin B12) 1,000 mcg disintegrating tablet,sublingual 1,000 mcg SUBLINGUAL QDAY 09/25/17 [History Confirmed 12/25/17] vitamin B complex-vitamin C-folic acid 0.8 mg tablet 1 tab PO QDAY 09/25/17 [History Confirmed 12/25/17] metoprolol tartrate 25 mg tablet 12.5 mg PO BID #90 tab 10/20/17 [Rx Confirmed 12/25/17] tiotropium bromide 18 mcg capsule with inhalation device 1 cap INHALATION QDAY #90 ea 11/27/17 [Rx Confirmed 12/25/17] lisinopril 2.5 mg tablet 2.5 mg PO QDAY #90 tab 12/01/17 [Rx Confirmed 12/25/17] simvastatin 20 mg tablet 20 mg PO QPM #60 tab 12/01/17 [Rx Confirmed 12/25/17] omeprazole 40 mg capsule,delayed release 40 mg PO QDAY #60 cap 12/31/17 [Rx Confirmed 12/31/17] PFSH Medical History Premature atrial contractions (Acute) MDS (myelodysplastic syndrome), low grade (Chronic) Paroxysmal atrial tachycardia (Acute) Paroxysmal ventricular tachycardia (Acute) Premature ventricular contraction (Acute) Palpitations (Acute) HTN (hypertension) (Chronic) Hyperlipidemia (Chronic) Hypertension (Chronic) Hyperlipemia (Chronic) Type 2 diabetes mellitus (Chronic) COPD (chronic obstructive pulmonary disease) (Chronic) Bilateral hip pain (Acute) Contusion of right knee (Acute) Inguinal hernia (Acute) Low back pain (Acute) Prepatellar bursitis, right knee (Acute) Thrombocytopenia (Acute) Arthritis (Chronic) BPH (benign prostatic hyperplasia) (Chronic) BPH (benign prostatic hyperplasia) (Chronic) MDS (myelodysplastic syndrome), low grade (Chronic) Surgical History H/O hernia repair (Chronic) 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) History of hand surgery (Resolved) Family History Mother Cancer, Onset Age: 59 Pancreatic Father Cancer, Onset Age: 44 Intestinal Brother Cancer, Onset Age: 78 Son CVA (cerebral vascular accident) Diabetes Mother Cancer Social History Smoking Status: Former smoker how long ago did patient quit smokin second hand exposure: No alcohol intake: never substance use type: does not use what type of physical activity do you participate in: none HPI HPI Chief Complaint: follow-up visit Details: ANGEL BRIGGS, is a 82yo M who presents to the office today for follow-up of his chronic medical conditions. Complaints at this time. Back pain in pain and swelling of both resolved. Blood pressure still on the lower side of normal. Blood pressure in office today is 106/62. Currently on 12.5 mg of metoprolol twice daily and 2.5 mg of lisinopril daily. He denies dizziness, falls or loss of consciousness. ROS Const Constitutional: No weight change, body ache, chills, fatigue, sleep problems, fever(s), change in appetite, snoring, weakness, frequent falls, headache(s) or excessive sweating Eyes Eyes: No change in vision, eye pain, light sensitivity or blurry vision ENT ENT: No headache(s), abnormal hearing, ear pain, tinnitus, nasal congestion, sore throat or neck pain Resp Respiratory: No snoring, cough, shortness of breath or wheezing Cardio Cardiology: No excessive sweating, chest pain at rest, chest pain with exertion, shortness of breath, dyspnea on exertion, palpitations, orthopnea or lightheadedness Gastro GI: No abdominal pain, change in bowel habits, constipation, diarrhea, vomiting, nausea/dyspepsia or cramping Genitourinary Male: No painful urination, urinary incontinence, urinary frequency, urinary urgency, blood in urine, testicle pain or other Musc Musculoskeletal: No neck pain, abnormal walking, joint pain, back pain, limited range of motion, numbness, tingling or muscle weakness Skin Skin: No redness, dry skin, itching, lesions, wounds or rash Neuro Neurology: No weakness, frequent falls, headache(s), abnormal hearing, abnormal walking, numbness, tingling, abnormal speech, dizziness or memory loss Psych Psychiatric: No change in appetite, No memory loss, No anxiety, No depression, No Thoughts of harming yourself/Others Endo Endocrine: No fatigue, excessive sweating, cold intolerance, increased thirst/drinking, heat intolerance, flushing or increased hunger Aller/Imm Allergy/Immunologic: No wheezing, itchy eyes, hives or seasonal allergy symptoms Blade/Lymp Hematologic/Lymphatic: No easy bleeding, easy bruising or enlarged lymph nodes Exam Const General: cooperative, no acute distress Orientation: alert, awake, oriented x3 HENMT Head: atraumatic, normocephalic Resp Effort AND Inspection: normal respiratory effort, able to speak in complete sentences Auscultation: Bilateral: Clear to Auscultation Cardio Rate: regular rate Rhythm: regular rhythm Heart Sounds: S1 normal, S2 normal GI Palpation: soft, no hepatosplenomegaly Musc Musculoskeletal: No muscle weakness Neuro General: alert, awake, oriented x3, moves all extremities, CN's II-XI intact bilaterally Extrem General: no clubbing, cyanosis or edema Psych Appearance: grossly normal Mental Status: mental status grossly normal Affect: normal affect Assessment AND Plan 1. Essential hypertension I10 Plan Blood pressure optimally controlled and occasionally runs lows. Not symptomatic Continue current medications for now. Possibly DC Lisinopril if low Bp persist and after review of urine microalbumin 2. Type 2 diabetes mellitus E11.9 Plan Stable. A1C ordered. 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 Continue current medication. This note was generated with [employer] dictation software. It may contain incorrect words, spelling, and punctuation that were not noted in checking the note before signing. Plan Detail Follow Up 3 Months Coding Level of Care Code Off vis,est,level 3 Diagnoses Essential hypertension I10 Hypertension type: essential hypertension Type 2 diabetes mellitus E11.9 02/02/18 0932 <Electronically signed by Roc Martinez MD> Date Roc Martinez MD Cosigner Signature: Date (if applicable) CC: PT D/C SUMMARY (1) Observed: 02/01/2018 Status: F Source: [place] 6:58 PM [facility] REPOSITORY [facility] [place] [address] Fax REHABILITATION SERVICES DISCHARGE SUMMARY MR#: [id number] Acct: [id number] Name: ANGEL BRIGGS Rep #: [id number] : 1935 82 From: Cert. MALIKA Corral PT, OCS Referring Dr.: Jack Augustin NP Status: REG RCR Insurance: MEDICARE PART A B [employer] HP - PT D/C Summary It has been my pleasure to treat ANGEL BRIGGS under orders from Jack Augustin NP-C, for the diagnosis of LOW BACK PAIN WITH LEFT SIDE SCIATICA for a total of 19 visit(s). Discharge Date: 01/27/18 Please see the following information for a summary of their discharge status. - Subjective Subjective: Doing better less pain overall.. Doing more activities ADL'S walking standing - Pain Bilateral Back Pain Intensity (Out of 10): 0 Left Lower Extremity Pain Intensity (Out of 10): 0 - Overall Improvement % Improvement: 60 - Objective Objective/Function: POSTURE: mild foward posture,decrease lordosis. GAIT: mild foward posture reciprocal pattern. MMT: 4/5 quads/hams/hip /ankle 4/5. LUMBAR ROM: flexion min loss ,extension min/mod lossmside glides mod loss. -SLR - Goals Goal 1:: Independant with HEP Goal Progress: Goal Met Goal 2:: Independant with posture/maria eugenia mechanics for ADL'S Goal Progress: Goal Met Goal 3:: Decrease lumbar pain and radicular symptoms by 50% or greater to improve function with ADL'S Goal Progress: Goal Met Goal 4:: Patient be able to perform ADL's and housework tasks with min limiations with standing and walking. Goal Progress: Progressing Goal 5:: Patient to be d/c to prophalaxix Goal Progress: Goal Met - Plan Plan: HEP - D/C Information Discharge Comments: HEP If there are questions or concerns regarding this patient's physical therapy, please feel free to call me at [phone]. Thank you for the referral of this patient. Sincerely, Donny Bonner PT, <Electronically signed by Cert. MALIKA Corral PT, OCS> 02/01/18 5889 CC: Roc Martinez MD; Jack Augustin NP JLRey Signed STRESS REPORT Observed: 01/07/2018 Status: F Source: [place]BI[place] 9:15 AM [facility] REPOSITORY [facility] Cardiovascular Services [address] [place] [address] MR#: [id number] Acct: [id number] Name: ANGEL BRIGGS Rep #: [id number] : 1935 82 From: Marcelo Reynolds MD Primary Care: Roc Martinez MD Status: REG CLI Ordering Dr: Shaheen Dailey Stress Test Report Date: 01/07/2018 Procedure: Pharmacologic stress nuclear imaging study Indications: Shortness of breath/dyspnea on exertion Consent: Per the patient Procedure: The patient underwent pharmacologic (Regadenoson) evaluation with a peak heart rate of 110 beats per minute (79 predicted maximal heart rate) and a peak blood pressure of 138/60 mmHg. The baseline ECG demonstrated sinus rhythm; poor R-wave progression. The peak pharmacologic ECG demonstrated no obvious ECG changes. There were occasional PVCs pretest, during infusion, and recovery. There was no complaint of chest discomfort during pharmacologic infusion or recovery. The examination was discontinued secondary to completion of protocol. Impression: 1. Pharmacologic (Regadenoson) evaluation 2. Peak pharmacologic ECG with no obvious ECG changes. 3. There were occasional PVCs pretest, during infusion, and recovery 4. Nuclear images pending Myocardial perfusion imaging study: Technique: The patient was injected with 14.1 millicuries of technetium 99m Cardiolite and subsequently rest SPECT Cardiolite nuclear imaging was obtained in the horizontal long, vertical long, and short axis views. The patient underwent pharmacologic (Regadenoson) evaluation with a peak heart rate of 110 beats per minute (79 % percent predicted maximal heart rate) and a peak blood pressure of 138/60 mmHg. The patient was injected with 45 millicuries of technetium 99m Cardiolite and subsequently stress SPECT Cardiolite nuclear imaging was obtained in the horizontal long, vertical long, and short axis views. A gated Cardiolite study at peak stress was obtained. Interpretation: Rest and stress SPECT Cardiolite nuclear imaging status post realignment, normalization, and attenuation correction demonstrate uniform tracer uptake and myocardial perfusion appearing within normal limits. There is end systolic thickening and brightening. The gated Cardiolite study demonstrates myocardial thickening and inward wall motion. The reported LVEF is 54 %. Impression: 1. Rest and stress SPECT Cardiolite nuclear imaging demonstrate relative uniform tracer uptake and myocardial perfusion appearing within normal limits. 2. The gated Cardiolite study reports an LVEF of 84 %. This note was generated with Connect HQation software. It may contain incorrect words, spelling, and punctuation that were not noted in checking the note before signing. 01/07/18914 <Electronically signed by Marcelo Reynolds MD> Date Marcelo Reynolds MD CC: Roc Martinez MD; Marcelo Reynolds MD Date Dictated: 01/07/18907 Date Transcribed: 01/07/18907 Medical Physics Teacher: PM Signed INTERNAL MEDICINE Observed: 01/01/2018 Status: F Source: YOSI OFFICE VISIT 1:55 PM [facility] [address] [place] [address] [place] [address] OFFICE VISIT Date of Service: 12/31/17 MR#: [id number] Acct: [id number] Name: ANGEL BRIGGS Rep #: [id number] : 1935 Provider: Roc Martniez MD Age/Sex: 82/M Location: [facility] [place].[facility] Status: Signed Intake Vital Signs12/31/17 Height 5 ft 10 in Intake Visit Reasons: PAIN WHEN SWALLOWS Chief Complaint: pain with swallowing Is patient in pain?: Yes (throat and sternum ) Pain scale (1-10): 6 Allergies codeine Allergy (Severe, Verified 12/25/17 09:30) Unknown Medications Aspirin [Lo-Dose Aspirin EC] 81 mg PO DAILY 11/11/16 [History Confirmed 12/25/17] Tamsulosin HCl [Flomax] 0.4 mg PO DAILY 06/01/17 [History Confirmed 12/25/17] metformin 500 mg tablet 500 mg PO BID #180 tab 09/09/17 [Rx Confirmed 12/25/17] apple cider vinegar 300 mg tablet mg PO 09/15/17 [History Confirmed 12/25/17] multivitamin with iron tablet 1 tab PO QDAY 09/15/17 [History Confirmed 12/25/17] mecobalamin (vitamin B12) 1,000 mcg disintegrating tablet,sublingual 1,000 mcg SUBLINGUAL QDAY 09/25/17 [History Confirmed 12/25/17] vitamin B complex-vitamin C-folic acid 0.8 mg tablet 1 tab PO QDAY 09/25/17 [History Confirmed 12/25/17] metoprolol tartrate 25 mg tablet 12.5 mg PO BID #90 tab 10/20/17 [Rx Confirmed 12/25/17] tiotropium bromide 18 mcg capsule with inhalation device 1 cap INHALATION QDAY #90 ea 11/27/17 [Rx Confirmed 12/25/17] lisinopril 2.5 mg tablet 2.5 mg PO QDAY #90 tab 12/01/17 [Rx Confirmed 12/25/17] simvastatin 20 mg tablet 20 mg PO QPM #60 tab 12/01/17 [Rx Confirmed 12/25/17] omeprazole 40 mg capsule,delayed release 40 mg PO QDAY #60 cap 12/31/17 [Rx Confirmed 12/31/17] [facility] Medical History Premature atrial contractions (Acute) MDS (myelodysplastic syndrome), low grade (Chronic) Paroxysmal atrial tachycardia (Acute) Paroxysmal ventricular tachycardia (Acute) Premature ventricular contraction (Acute) Palpitations (Acute) HTN (hypertension) (Chronic) Hyperlipidemia (Chronic) Hypertension (Chronic) Hyperlipemia (Chronic) Type 2 diabetes mellitus (Chronic) COPD (chronic obstructive pulmonary disease) (Chronic) Bilateral hip pain (Acute) Contusion of right knee (Acute) Inguinal hernia (Acute) Low back pain (Acute) Prepatellar bursitis, right knee (Acute) Thrombocytopenia (Acute) Arthritis (Chronic) BPH (benign prostatic hyperplasia) (Chronic) BPH (benign prostatic hyperplasia) (Chronic) MDS (myelodysplastic syndrome), low grade (Chronic) Surgical History H/O hernia repair (Chronic) 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) History of hand surgery (Resolved) Family History Mother Cancer, Onset Age: 59 Pancreatic Father Cancer, Onset Age: 44 Intestinal Brother Cancer, Onset Age: 78 Son CVA (cerebral vascular accident) Diabetes Mother Cancer Social History Smoking Status: Former smoker how long ago did patient quit smokin second hand exposure: No alcohol intake: never substance use type: does not use what type of physical activity do you participate in: none HPI HPI Chief Complaint: pain with swallowing Details: ANGEL BRIGGS, is an 82yo M who presents to the office today due to complaints of pain on swallowing which was said to have started this morning. However, now said to be slowly improving. He denies and prior history, or blood in his stool. He feels well otherwise. ROS Const Constitutional: No weight change, body ache, chills, fatigue, sleep problems, fever(s), change in appetite, snoring, weakness, frequent falls, headache(s) or excessive sweating Eyes Eyes: No change in vision, eye pain, light sensitivity or blurry vision ENT ENT: Positive for sore throat and difficulty swallowing; no headache(s), abnormal hearing, ear pain, tinnitus, nasal congestion or neck pain Resp Respiratory: No snoring, cough, shortness of breath or wheezing Cardio Cardiology: No excessive sweating, chest pain at rest, chest pain with exertion, shortness of breath, dyspnea on exertion, palpitations, orthopnea or lightheadedness Gastro GI: Positive for difficulty swallowing; no abdominal pain, change in bowel habits, constipation, diarrhea, vomiting, nausea/dyspepsia or cramping Genitourinary Male: No painful urination, urinary incontinence, urinary frequency, urinary urgency, blood in urine, testicle pain or other Musc Musculoskeletal: No neck pain, abnormal walking, joint pain, limited range of motion, numbness, tingling or muscle weakness Skin Skin: No redness, dry skin, itching, lesions, wounds or rash Neuro Neurology: No weakness, frequent falls, headache(s), abnormal hearing, abnormal walking, numbness, tingling, abnormal speech, dizziness or memory loss Psych Psychiatric: No change in appetite, No memory loss, No anxiety, No depression, No Thoughts of harming yourself/Others Endo Endocrine: No fatigue, excessive sweating, cold intolerance, increased thirst/drinking, heat intolerance, flushing or increased hunger Aller/Imm Allergy/Immunologic: No wheezing, itchy eyes, hives or seasonal allergy symptoms Blade/Lymp Hematologic/Lymphatic: No easy bleeding, easy bruising or enlarged lymph nodes Exam Const General: cooperative, no acute distress Orientation: alert, awake, oriented x3 HENMT Head: atraumatic, normocephalic Resp Effort AND Inspection: normal respiratory effort, able to speak in complete sentences Auscultation: Bilateral: Clear to Auscultation Cardio Rate: regular rate Rhythm: regular rhythm Heart Sounds: S1 normal, S2 normal GI Palpation: soft, no hepatosplenomegaly Musc Musculoskeletal: No muscle weakness Neuro General: alert, awake, oriented x3, moves all extremities, CN's II-XI intact bilaterally Extrem General: no clubbing, cyanosis or edema Psych Appearance: grossly normal Mental Status: mental status grossly normal Affect: normal affect Assessment AND Plan 1. Pain on swallowing R13.10 Plan Acute and now improving. No difficulty swallowing. No blood in stool or otherwise feeling of unwell. Omeprazole 40mg daily. Life style modifications discussed. Follow up in 1 month. 2. Type 2 diabetes mellitus E11.9 Plan Stable. Continue current medications. Will follow. Plan Detail Other Medications New: Follow Up 1 Month Coding Level of Care Code Off vis,est,level 3 Diagnoses Pain on swallowing R13.10 Type 2 diabetes mellitus E11.9 01/01/18 2255 <Electronically signed by Roc Martinez MD> Date Roc Martinez MD Cosigner Signature: Date (if applicable) CC: RE-EVALUATION - PT (1) Observed: 12/25/2017 Status: F Source: [place] 4:57 PM [facility] REPOSITORY [facility] [place] [address] Fax REEVALUATION / MEDICARE RECERTIFICATION PHYSICAL THERAPY #: [id number] Acct: [id number] Name: ANGEL BRIGGS Rep #: [id number] : 1935 82 From: Donny Bonner PT, Cert. MDT, OCS Referring DrDonya: Jack Augustin NP Status: REG RCR Insurance: MEDICARE PART A B ARTURO Augustin, WIRER MAINTENANCE-C, It has been my pleasure to treat ANGEL BRIGGS over the last 16 visits for . Please see the progress note below for an update on the physical therapy plan of care! Subjective: Patient reports more pain today left lumbar . Symptoms sore when getting up from chair... Pain can affected walking ,standing and ADL'S ,but overall stronger Objective/Function: POSTURE: mild foward posture,flat lumbar. GAIT: ambulates with mild foward posture,slow eze. MMT: quads/hams 4/5,hip 4-/5 ankl e4/5. LUMBAR ROM: flexion min loss ,extension min /mod loss,. -SLR Plan Plan: CONT WITH POC 2XWEEK FOR 3WEEKS Goals Goal 1:: Independant with HEP Goal Time Frame: 4-6 Weeks Goal Progress: Progressing Goal 2:: Independant with posture/maria eugenia mechanics for ADL'S Goal Time Frame: 4-6 Weeks Goal Progress: Progressing Goal 3:: Decrease lumbar pain and radicular symptoms by 50% or greater to improve function with ADL'S Goal Time Frame: 4-6 Weeks Goal Progress: Progressing Goal 4:: Patient be able to perform ADL's and housework tasks with min limiations with standing and walking. Goal Time Frame: 4-6 Weeks Goal Progress: Progressing Goal 5:: Patient to be d/c to prophalaxix Goal Time Frame: 4-6 Weeks Goal Progress: Progressing Anticipated Interventions Patient/Client Instruction: Educate patient on: Condition, Plan of Care For the Purpose of:: To decrease pain, To increase ROM, To improve muscle performance and motor function, To improve ability to perform ADL's, To increase tolerance to activity/condition/position, To improve ability of physical actions for home/community/work/leisure, To improve health of tissue, To decrease soft tissue restriction, To increase flexibility/ROM, To improve ability to perform tasks related to life management Therapeutic Exercise to Include: Strength training, Body mechanics, Postural training, Flexibilty training, Maria Del Rosario Exercises For the Purpose of:: To decrease pain, To increase ROM, To improve muscle performance and motor function, To increase tolerance to activity/condition/position, To improve ability of physical actions for home/community/work/leisure, To improve health of tissue, To decrease soft tissue restriction, To increase flexibility/ROM, To improve ability to perform tasks related to life management TENS: Yes IF ES: Yes Cryotherapy (ice pack, ice massage): Yes Thermo therapy (hot pack): Yes Ultrasound (thermal/non thermal): Yes For the Purpose of:: To decrease pain, To increase ROM, To improve muscle performance and motor function, To improve ability to perform ADL's, To increase tolerance to activity/condition/position, To improve ability of physical actions for home/community/work/leisure, To improve health of tissue, To decrease soft tissue restriction, To increase flexibility/ROM, To improve ability to perform tasks related to life management Please do not hesitate to contact me at [phone] by phone or if you have questions or concerns regarding this new plan of care! Sincerely, Donny Bonner PT, <Electronically signed by Donny Bonner PT, Cert. T, OCS> 12/25/17 3512 CC: Roc Martinez MD; Jack Augustin NP VALENTIN Signed For Medicare only, by signing this I certify the plan of care. Physicians Signature Date CARDIOLOGY VISIT Observed: 12/25/2017 Status: F Source: [place] REPORT 10:56 AM [facility] REPOSITORY [facility] [address] [place] [address] OFFICE VISIT Date of Service: 12/25/17 MR#: [id number] Acct: [id number] Name: ANGEL BRIGGS Rep #: [id number] : 1935 Provider: Marcelo Reynolds MD Age/Sex: 82/M Location: [facility] [place] Status: Signed HPI HPI Details: ANGEL BRIGGS, is a 82 M who presents to the office today for who presents for outpatient cardiovascular follow-up of his history of underlying PACs, PVCs, superimposed on hyperlipidemia, hypertension, and diabetes mellitus. He states since his last visit of 06/29/2017 he has been doing well overall with the exception of progressive shortness of breath and dyspnea. He notes that he becomes much more short of breath and dyspneic than he used to with less activity. He also feels more tired and fatigued with less activity. He does not complain of ongoing chest discomfort. There is been no orthopnea or PND or worsening peripheral pitting edema. He has not sensed any change in his underlying palpitations or ectopy. He was noted to have laboratory work performed recently. On 12/01/2017 his hemoglobin was reported at 10.1 with a hematocrit of 29.9. He also had a BUN of 23 and a creatinine of 1.6 with potassium of 4.5. His cholesterol was 169 with an LDL of 94 and an HDL of 33. His triglycerides were 209. He had an ECG in the office today. It demonstrated sinus rhythm with a ventricular rate between 90 and 100 bpm with a left axis deviation and low voltage QRS and poor R-wave progression with an anterior MD pattern of indeterminate age cannot be excluded and an inferior MD pattern of indeterminate age cannot be excluded. In comparison to a previous ECG from 10/29/2016 there were similar type changes. Intake Vital Signs12/25/17 Height 5 ft 10 in 12/25/17 Weight: 220 lb 12/25/17 Body Mass Index (BMI) 31.5 12/25/17 Blood Pressure 118/56 Intake Visit Reasons: 6 M FU Allergies codeine Allergy (Severe, Verified 12/25/17 09:30) Unknown Medications Aspirin [Lo-Dose Aspirin EC] 81 mg PO DAILY 11/11/16 [History Confirmed 12/25/17] Tamsulosin HCl [Flomax] 0.4 mg PO DAILY 06/01/17 [History Confirmed 12/25/17] metformin 500 mg tablet 500 mg PO BID #180 tab 09/09/17 [Rx Confirmed 12/25/17] apple cider vinegar 300 mg tablet mg PO 09/15/17 [History Confirmed 12/25/17] multivitamin with iron tablet 1 tab PO QDAY 09/15/17 [History Confirmed 12/25/17] mecobalamin (vitamin B12) 1,000 mcg disintegrating tablet,sublingual 1,000 mcg SUBLINGUAL QDAY 09/25/17 [History Confirmed 12/25/17] vitamin B complex-vitamin C-folic acid 0.8 mg tablet 1 tab PO QDAY 09/25/17 [History Confirmed 12/25/17] metoprolol tartrate 25 mg tablet 12.5 mg PO BID #90 tab 10/20/17 [Rx Confirmed 12/25/17] tiotropium bromide 18 mcg capsule with inhalation device 1 cap INHALATION QDAY #90 ea 11/27/17 [Rx Confirmed 12/25/17] lisinopril 2.5 mg tablet 2.5 mg PO QDAY #90 tab 12/01/17 [Rx Confirmed 12/25/17] simvastatin 20 mg tablet 20 mg PO QPM #60 tab 12/01/17 [Rx Confirmed 12/25/17] [facility] Medical History Premature atrial contractions (Acute) MDS (myelodysplastic syndrome), low grade (Chronic) Paroxysmal atrial tachycardia (Acute) Paroxysmal ventricular tachycardia (Acute) Premature ventricular contraction (Acute) Palpitations (Acute) HTN (hypertension) (Chronic) Hyperlipidemia (Chronic) Hypertension (Chronic) Hyperlipemia (Chronic) Type 2 diabetes mellitus (Chronic) COPD (chronic obstructive pulmonary disease) (Chronic) Bilateral hip pain (Acute) Contusion of right knee (Acute) Inguinal hernia (Acute) Low back pain (Acute) Prepatellar bursitis, right knee (Acute) Thrombocytopenia (Acute) Arthritis (Chronic) BPH (benign prostatic hyperplasia) (Chronic) BPH (benign prostatic hyperplasia) (Chronic) MDS (myelodysplastic syndrome), low grade (Chronic) Surgical History H/O hernia repair (Chronic) 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) History of hand surgery (Resolved) Family History Mother Cancer, Onset Age: 59 Pancreatic Father Cancer, Onset Age: 44 Intestinal Brother Cancer, Onset Age: 78 Son CVA (cerebral vascular accident) Diabetes Mother Cancer Social History Smoking Status: Former smoker how long ago did patient quit smokin second hand exposure: No alcohol intake: never substance use type: does not use what type of physical activity do you participate in: none ROS Const Const: Positive for weakness (back pain); negative for fatigue, weight gain, weight loss, frequent falls or excessive sweating Eyes Eyes: Negative for change in vision, blurry vision or transient loss of vision ENT ENT: Negative for dizziness or balance problems Cardio Chest Pain: No Palpitations: No Edema: None Muscle aches with walking: None Resp Respiratory: Positive for SOB with activity (increased); negative for SOB at rest Additional Details: Dry Cough GI GI: Negative vomiting or vomiting blood/hematemesis : Negative for hematuria Musc Musc: Positive for muscle aches/ myalgia (back pain, bilateral LE); negative for balance problems, muscle weakness or joint pain Skin Skin: Negative non-healing lesions or rash Neuro Neuro: Positive for weakness (back pain) and lightheadedness (occasional while ambulating); negative for blurry vision, dizziness, frequent falls or orthostatic symptoms Blade Hematologic/Lymphatic: Negative for easy bleeding Endo Endo: Negative for fatigue or excessive sweating Psych Psych: Negative for anxiety or depression Allergy Allergy/Immunology: Negative for hives, Negative for rash Cardiology Exam Const Appearance: cooperative, healthy appearing, comfortable, no acute distress, well developed and well groomed Nutritional Appearance: overweight Orientation: alert and awake Head Head: normal to inspection, normocephalic and atraumatic Ears: hearing grossly normal bilaterally Nose: external nose normal Face and Sinus: face symmetric Mouth: oral mucosae normal Eyes General: appearance normal, both eyes and all related structures Eyelids: eyelids normal Conjunctivae: conjunctivae normal Pupils: PERRL EOM: EOM intact bilaterally Neck Neck: normal visual inspection and full ROM Carotids: normal carotid upstroke Chest Chest inspection: normal inspection of the chest and symmetric chest movement Auscultation: Bilateral: Clear to Auscultation Cardio Palpation: normal PMI Rate: regular rate Rhythm: regular rhythm Heart sounds: S1 normal and S2 normal GI GI: normal to inspection, soft, no hepatosplenomegaly and bowel sounds present Neuro General: alert, awake, oriented x3, gait normal, moves all extremities, no focal sensory deficit and no focal motor deficits Skin Skin: ecchymosis Extremities Pulses: Normal: Right Radial Pulse, Left Radial Pulse Lower Extremity Edema: None: Bilateral Musculoskel Musculoskeletal: joint tenderness right knee Psych Psychological: normal affect Supplemental Info He had a transthoracic echocardiogram performed on 11/13/2016 at [facility]. According to the report his left ventricle was thought to be normal with an LVEF of 60%. He had mild aortic valve insufficiency. He had an exercise tolerance test/imaging study in the way of a pharmacologic stress nuclear imaging study performed on 10/31/2010 at [facility]. The results are as noted below. IMPRESSION 1. Rest and stress SPECT Cardiolite nuclear imaging demonstrate myocardial perfusion changes appearing compatible with soft tissue attenuation/diaphragmatic attenuation being more prominent at rest as opposed to stress although an element of previous myocardial injury/infarction involving portions of the inferior segments cannot be excluded. 2. There are no myocardial perfusion changes considered diagnostic for stress induced myocardial ischemia. 3. The gated Cardiolite study reports an LVEF of 64%. His last Holter monitor was performed at [facility] on 10/29/2016. The results are as noted below. Average heart rate was 75 BPM, Normal.Sinus Rhythm Minimum heart rate was 54 BPM at 12:38AM, Sinus Bradycardia Maximum heart rate was 113 BPM at 7:25 AM, Normal Sinus Rhythm There were a total of 895 ventricular beats comprising of 0.8% of the total QRS complexes. 21 Trigeminy beats. No runs noted, There were a total of 43 supraventricular ectopic isolated beats. 37 l..ate beats. No runs noted. The longest R-R interval was 1.9 .seconds 1:16AM The patient kept a diary with no symptoms noted. . Assessment AND Plan 1. Shortness of breath R06.02 Plan At the present time he does complain of progressive shortness of breath and dyspnea. He states this is also accompanied with fatigue. The present time it is unclear whether this is cardiovascular related to the possible development and/or progression of CAD versus a noncardiovascular related and potentially related to his underlying history of COPD, anemia, and a combination of age and decreased functional capacity, etc. From a cardiac standpoint he will undergo further evaluation. This will include a pharmacologic stress nuclear imaging study to screen for obvious evidence of CAD that would be contributing to his symptoms that would warrant further evaluation and care. Orders Orders: 2. Premature atrial beat I49.1 Plan He is not complaining of worsening palpitations with respect to his underlying ectopy either his PACs or PVCs. He has remained on low-dose beta-daniel therapy. Orders Orders: 3. Premature ventricular beat I49.3 Plan Again he is not complaining of worsening ectopy related to his underlying PACs or PVCs. He has continued his medical therapy with his beta-daniel Orders Orders: 4. Hyperlipidemia, unspecified hyperlipidemia type E78.5 Plan His lipid labs have been reviewed. His cholesterol profile appears to be reasonably well-controlled with the exception of his triglycerides being somewhat elevated. He does need to continue to monitor his diet, exercise as best as possible, and continue medication as tolerated. Orders Orders: 5. Essential hypertension I10 Plan His blood pressure seems reasonably well controlled today. However he states intermittently it is on the low side. If his blood pressure trends to be lower than his medications may have to be adjusted with consideration to possible discontinuation of his lisinopril therapy. Orders Orders: 6. Diabetes mellitus, type II E11.9 Plan He will continue to follow with his primary care physician for his diabetes mellitus. 7. COPD (chronic obstructive pulmonary disease) J44.9 Plan It is unclear whether his COPD is contributing more so to his shortness of breath/dyspnea versus any other process. He will need to continue with his primary care physician for this. Plan Detail Other Orders Orders: Additional Comments He will be scheduled for future outpatient cardiovascular follow-up. Follow Up 6 Months (PFM) Coding Level of Care Code Off vis,est,level 4 Diagnoses Shortness of breath R06.02 Premature atrial beat I49.1 Premature ventricular beat I49.3 Hyperlipidemia, unspecified hyperlipidemia type E78.5 Hyperlipidemia type: unspecified Essential hypertension I10 Hypertension type: essential hypertension Diabetes mellitus, type II E11.9 COPD (chronic obstructive pulmonary disease) J44.9 Coding Level of Care Code Off vis,est,level 4 Diagnoses Shortness of breath R06.02 Premature atrial beat I49.1 Premature ventricular beat I49.3 Hyperlipidemia, unspecified hyperlipidemia type E78.5 Hyperlipidemia type: unspecified Essential hypertension I10 Hypertension type: essential hypertension Diabetes mellitus, type II E11.9 COPD (chronic obstructive pulmonary disease) J44.9 12/25/17 1056 <Electronically signed by Marcelo Reynolds MD> Date Marcelo Reynolds MD Cosigner Signature: Date (if applicable) CC: Roc Martinez MD 12 LEAD EKG PERFORMED Observed: 12/25/2017 Status: F Source: [place] [facility] 10:[address] [facility] [address] [place] [address] 12 Lead EKG performed by [facility] 12/25/171033 MR#: [id number] Acct: [id number] Name: ANGEL BRIGGS Rep #: [id number] : 1935 82 From: Marcelo Reynolds MD Attending Dr: Marcelo Reynolds MD Status: DEP AMB Ordering Dr: Marcelo Reynolds MD Date: 12/25/17 [place] [facility] [place] M C Admitted: BMS/12 Lead EKG performed by [facility] ECG Report Interpretation Sinus Rhythm Left axis deviationLow voltage QRS Anterior MD, age undetermined, cannot be excludedInferior MD, age undetermined, cannot be excludedABNORMAL Electronically signed on 12/25/2017 at 16:54 by Marcelo Reynolds 12/25/17 165 Date Marcelo Reynolds MD CC: Roc Martinez MD Date Dictated: 12/25/174 Date Transcribed: 12/25/171033 Medical Physics Teacher: PM Signed INTERNAL MEDICINE Observed: 12/04/2017 Status: F Source: [place] OFFICE VISIT 8:29 AM [facility] [address] [place] [address] [place] [address] OFFICE VISIT Date of Service: 12/01/17 MR#: [id number] Acct: [id number] Name: ANGEL BRIGGS Rep #: [id number] : 1935 Provider: Roc Martinez MD Age/Sex: 82/M Location: [facility] Status: Signed Intake Vital Signs12/01/17 Height 5 ft 8 in 12/01/17 Weight: 219 lb 12/01/17 Body Mass Index (BMI) 33.3 12/01/17 Blood Pressure 122/61 Intake Visit Reasons: 6 WK F/U Chief Complaint: Low Bp. Is patient in pain?: No Allergies codeine Allergy (Severe, Verified 12/01/17 08:04) Unknown Medications Aspirin [Lo-Dose Aspirin EC] 81 mg PO DAILY 11/11/16 [History Confirmed 12/01/17] Tamsulosin HCl [Flomax] 0.4 mg PO DAILY 06/01/17 [History Confirmed 12/01/17] metformin 500 mg tablet 500 mg PO BID #180 tab 09/09/17 [Rx Confirmed 12/01/17] apple cider vinegar 300 mg tablet mg PO 09/15/17 [History Confirmed 12/01/17] multivitamin with iron tablet 1 tab PO QDAY 09/15/17 [History Confirmed 12/01/17] mecobalamin (vitamin B12) 1,000 mcg disintegrating tablet,sublingual 1,000 mcg SUBLINGUAL QDAY 09/25/17 [History Confirmed 12/01/17] vitamin B complex-vitamin C-folic acid 0.8 mg tablet 1 tab PO QDAY 09/25/17 [History Confirmed 12/01/17] metoprolol tartrate 25 mg tablet 12.5 mg PO BID #90 tab 10/20/17 [Rx Confirmed 12/01/17] tiotropium bromide 18 mcg capsule with inhalation device 1 cap INHALATION QDAY #90 ea 11/27/17 [Rx Confirmed 12/01/17] lisinopril 2.5 mg tablet 2.5 mg PO QDAY #90 tab 12/01/17 [Rx Confirmed 12/01/17] [facility] Medical History Paroxysmal atrial tachycardia (Acute) Paroxysmal ventricular tachycardia (Acute) Premature ventricular contraction (Acute) Palpitations (Acute) HTN (hypertension) (Chronic) Hyperlipidemia (Chronic) Hypertension (Chronic) Hyperlipemia (Chronic) Type 2 diabetes mellitus (Chronic) COPD (chronic obstructive pulmonary disease) (Chronic) Bilateral hip pain (Acute) Contusion of right knee (Acute) Inguinal hernia (Acute) Low back pain (Acute) Prepatellar bursitis, right knee (Acute) Thrombocytopenia (Acute) Arthritis (Chronic) BPH (benign prostatic hyperplasia) (Chronic) BPH (benign prostatic hyperplasia) (Chronic) MDS (myelodysplastic syndrome), low grade (Chronic) Surgical History H/O hernia repair (Chronic) 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 Details: ANGEL BRIGGS, is a 82yo M who presents to the office today for follow-up of his chronic medical conditions. He was seen last week for hypertension. Blood pressure the visit was about 90-42 mmHg. He was instructed to discontinue lisinopril and continue metoprolol. Blood pressure today is 122/66 mmHg. Patient denies any further history of falls or dizziness. He also states that his blood sugars have been well controlled. Last A1c in August was 5.7. ROS Const Constitutional: No anorexia, body ache, chills, fever(s), decreased energy, malaise, night sweats, weight change, sleep problems, other, snoring, weakness, frequent falls, headache(s), abnormal sleep pattern, change in appetite, excessive sweating or fatigue Eyes Eyes: No blurry vision, change in vision, double vision, discharge, dry eyes, bulging eyes, floaters, eye pain, light sensitivity, spots in vision, tunnel vision, other or visual disturbances ENT ENT: No ear pain, ear discharge, ear pressure, tinnitus, dizziness/vertigo, balance problems, nosebleed/epistaxis, nasal congestion, nasal obstruction, nose pain, sinus pressure, sinus pain, nasal discharge, post nasal drip, facial pain, dental pain, dry mouth, bad breath, hoarseness, mouth lesions, mouth pain, sore throat, difficulty swallowing, neck pain, abnormal hearing, headache(s), other, lip swelling, throat swelling or tongue swelling Resp Respiratory: Positive for excessive phlegm production; no cough, change in phlegm color, chest congestion, hemoptysis, pain on inspiration, shortness of breath, pain with cough, snoring, stridor, other or wheezing Cardio Cardiology: No chest pain at rest, chest pain with exertion, leg pain with exertion, shortness of breath, dyspnea on exertion, generalized swelling, irregular heart rhythm, lightheadedness, orthopnea, radiating jaw, neck or arm pain, fast heart rate, slow heart rate, palpitations, other or excessive sweating Gastro GI: Positive for constipation; no abdominal pain, belching, bloating, change in bowel habits, change in stool character, coffee ground emesis, cramping, diarrhea, heartburn, difficulty swallowing, feeling full early, excessive flatus, incontinent of stools, Vomiting blood/hematemesis, blood in stool, loose stools, Black,tarry stools, nausea/dyspepsia, pain with swallowing, vomiting or other Genitourinary Male: Positive for Frequent nighttime urination/ nocturia; no difficulty urinating, burning urination, painful urination, urinary incontinence, urinary frequency, urinary urgency, urinary hesitancy, urinary retention, blood in urine, post void dribbling, suprapubic fullness, side pain, sexual problems, genital lesions, genital itching, erectile dysfunction, penile discharge, difficulty with ejaculations, blood in semen, scrotal swelling, testicle lump, testicle pain or other Musc Musculoskeletal: Positive for back pain; no joint pain, deformity, joint swelling, limited range of motion, loss of height, muscle cramps, muscle weakness, decreased muscle mass, body aches, neck pain, radiating pain into limb, stiffness, other, abnormal walking, numbness or tingling Skin Skin: No acne, hair loss, change in hair, nail changes, boil, change in skin color, dry skin, redness, excessive hair growth, yellowing of the skin, lesions, rash, skin pain, skin ulcer, sores, skin swelling, wounds or itching Neuro Neurology: No abnormal walking, abnormal hearing, abnormal movements, abnormal speech, unsteady gait/balance, dizziness, weakness, frequent falls, headache(s), lack of coordination, loss of vision, numbness, tingling, visual disturbances, restless legs, fainting, tremor(s), other, behavioral changes, confusion or memory loss Psych Psychiatric: No abnormal sleep pattern, No lack of enjoyment, No anxiety, No behavioral changes, No change in appetite, No confusion, No depression, No difficulty concentrating, No hopelessness, No irritability, No memory loss, No mood swings, No panic attacks, No paranoia, No Thoughts of harming yourself/Others, No hallucinations, No other Endo Endocrine: No change in body appearance, cold intolerance, excessive sweating, fatigue, flushing, heat intolerance, increased thirst/drinking, increased hunger, increased urination or other Aller/Imm Allergy/Immunologic: No food intolerance, itchy eyes, lip swelling, seasonal allergy symptoms, throat swelling, tongue swelling, hives, wheezing or other Blade/Lymp Hematologic/Lymphatic: No easy bleeding, easy bruising, enlarged lymph nodes or other Exam Const General: cooperative, no acute distress Orientation: alert, awake, oriented x3 [facility] Head: atraumatic, normocephalic Resp Effort AND Inspection: normal respiratory effort, able to speak in complete sentences Auscultation: Bilateral: Clear to Auscultation Cardio Rate: regular rate Rhythm: regular rhythm Heart Sounds: S1 normal, S2 normal GI Palpation: soft, no hepatosplenomegaly Musc Musculoskeletal: No muscle weakness Neuro General: alert, awake, oriented x3, moves all extremities, CN's II-XI intact bilaterally Extrem General: no clubbing, cyanosis or edema Psych Appearance: grossly normal Mental Status: mental status grossly normal Affect: normal affect Assessment AND Plan 1. Hypotension I95.9 Plan Possibly medication induced. Now resolved. Advised to restart lisinopril at 2.5 mg daily. Continue blood pressure checks. If blood pressures running low again, advised to take it every other day. Call the office with any concerns or questions. 2. Type 2 diabetes mellitus E11.9 Plan Well-controlled. Last A1c was 5.7. Will recheck A1c in 3 months. Lisinopril 2.5 mg daily due to mild microalbuminuria. Will follow. Orders Orders: 3. Hyperlipemia E78.5 Plan No recent lipid profile. Lipid profile ordered. Lifestyle modifications encouraged. Follow-up with results. Orders Orders: 4. Hypertension I10 Plan Stable. Lisinopril as stated above. Will follow. This note was generated with Connect HQation software. It may contain incorrect words, spelling, and punctuation that were not noted in checking the note before signing. Orders Orders: Plan Detail Other Medications New: Follow Up 3 Months Coding Level of Care Code Off vis,est,level 4 Diagnoses Hypotension I95.9 Type 2 diabetes mellitus E11.9 Hyperlipemia E78.5 Hypertension I10 12/04/17 0829 <Electronically signed by Roc Martinez MD> Date Roc Martinez MD Cosigner Signature: Date (if applicable) CC: ONCOLOGY VISIT REPORT Observed: 12/01/2017 Status: F Source: [place] 2:04 PM [facility] REPOSITORY [facility] [address] [place] [address]. [place] [address] OFFICE VISIT Date of Service: 12/01/17 1318 MR#: [id number] Acct: [id number] Name: ANGEL BRIGGS Rep #: [id number] : 1935 From: Holden Chavarria MD Age/Sex: 82/M Location: [facility] Status: Signed Subjective - Date of Service Date of Service:: 12/01/17 - Chief Complaint F/u for MDS. - History of Present Illness 82-year-old man presented with pancytopenia, bone marrow biopsy on 05/26/2016 showed early MDS. He is currently on observation, comes in for follow-up. He feels well. - Past Medical/Social History Past Medical History Past Medical History: Cirrhosis,Diabetes mellitus,Hyperlipidemia, Hypertension Other Past Medical History: BPH INGUINAL HERNIAS THROMBOCTOPENIA PALPATATIONS ARYTHMIA-PVC'S PANCYTOPENIA Past Surgical History Surgical: Hip replacement Other Surgical History: LEFT HAND SURGERY Family History Paternal Past Medical History: Unknown Maternal Past Medical History: Unknown Maternal History of Cancer: Esophageal cancer,Pancreatic cancer Social History Social History: No changes Smoking Status Former smoker Review of Systems Constitutional:: Denies: Fever, Sweats, Weight loss, Appetite change, Chills Cardiovascular:: Denies: Chest pain, Palpitations, Dyspnea on exertion, Orthopnea, PND, Shortness of breath Respiratory: Denies: Cough, Hemoptysis, Shortness of Breath, Wheezing Gastrointestinal:: Denies: Abdominal pain, Nausea, Vomiting, Diarrhea, Constipation, Hematochezia Genitourinary: Denies: Dysuria, Hematuria, 15, Flank pain Musculoskeletal:: Denies: Back pain, Myalgia, Arthralgia Skin: Denies: Rash, Skin Changes, Wounds Neurological:: Denies: Headache, Dizziness, Visual changes, Tinnitus, Hearing loss Psychiatric: Denies: Anxiety, Depression, Homicidal Ideations, Suicidal Ideations Vital Signs Height 5 ft 10 in Weight: 97.522 kg Weight in Pounds 215.0 lbs Pulse Ox 96 - Physical Exam General: Alert, Oriented x3, No apparent distress HEENT: Atraumatic, PERRLA, EOMI, Normocephalic Oropharynx:: Dry mucosa Neck:: Supple, Trachea midline. Negative for: JVD, bilateral Cardiac:: Regular rate, Regular rhythm, Normal S1, Normal S2. Negative for: Murmur Lungs: Clear to auscultation, Excusion symmetrical. Negative for: Rhonchi, Wheezes Abdomen:: Bowel sounds x 4, Soft, Non-tender, Non-distended. Negative for: Hepatosplenomegaly Extremities:: Negative for: Cyanosis, Edema Lymphatics:: Negative for: Cervical lymphadenopathy, Supraclavicular lymphadenopathy, Axillary lymphadenopathy Laboratory Data: Laboratory Tests WBC 4.1 L (4.4-11.0) K/mm3 RBC 3.44 L (4.6-6.2) M/mm3 Assessment and Plan Early MDS with thrombocytopenia, leukopenia. Clinically stable with no indication for therapy. Plan is to continue observation. Return to clinic 3 months with CBC. Medications: Prescriptions This Visit Medication Instructions Recorded Aspirin [Lo-Dose Aspirin EC] 81 mg PO DAILY 11/11/16 Tamsulosin HCl [Flomax] 0.4 mg PO DAILY 06/01/17 Primary Care Provider: Roc Martinez MD Referring Provider: Holden Chavarria MD - Problem List (1) MDS (myelodysplastic syndrome), low grade Status: Chronic Code Visit Office Visits / Consults: 23449 OV L3 Est 12/01/17 1404 <Electronically signed by Holden Chavarria MD> Date Holden Chavarria MD Cosigner Signature: Date (if applicable) CC: CBC W/DIFF, AUTOMATED Collected: 12/01/2017 Status: F Source: [place] 12:18 PM [facility] REPOSITORY Order Comment: Reason for Laboratory Test OV TYPE CODE TESTS RESULT OUT OF RANGE REFERENCE UNITS LAB L100.1000 4.4-11.0 K/mm3 Low 4.1 WBC LAB L100.1200 4.6-6.2 M/mm3 Low 3.44 RBC LAB L100.1300 13.0-16.5 g/dl Low 10.1 HGB LAB L100.1400 40-54 % Low 29.9 HCT LAB L100.1500 80-94 fL 86.9 Normal MCV LAB L100.1600 27.0-32.0 pg 29.4 Normal MCH LAB L100.1700 32-36 g/gl 33.8 Normal MCHC LAB L100.1810 11.6-14.6 % High 19.6 RDW CV LAB L100.1820 35.1-43.9 fl High 56.7 RDW SD LAB L100.1900 150-450 K/mm3 Low 100 PLT LAB L100.2000 6.2-12.0 fl Test Normal MPV not performed LAB L100.2100 47-70 % 63.1 Normal NEUT% LAB L100.2200 19-41 % 27.8 Normal LY% LAB L100.2300 0-10 % 7.7 Normal MONO% LAB L100.2400 0-5 % 0.5 Normal EO% LAB L100.2500 0-1 % 0.2 Normal BASO% LAB L100.2550 0.0-0.9 % 0.700 Normal IM GRAN % Result Comment: IG% - Immature Granulocytes (promyelocytes, myelocytes and metamyelocytes) > 1% indicates that a LEFT SHIFT is Present. LAB L100.2620 2.0-7.7 X10 3/uL Absolute Neut Normal 2.6 LAB L100.2720 0.83-4.51 X10 3/ul Absolute Lymph Normal 1.15 LAB L100.5500 ADEQ PLT EST Normal SLT DEC LAB L100.5650 PLT MORPH Normal LARGE LAB L100.7300 ANISO Normal 1+ LAB L100.7500 POLYCHROMASIA Normal RARE LAB L100.7600 HYPOCHROMASIA Normal 2+ LAB L100.8400 SCHISTOCYTES Normal RARE Performed By: #### L100.0100 #### [facility] [address] [place], [address] COMPREHENSIVE METABOLIC Collected: 12/01/2017 Status: F Source: [facility] 12:02 PM [facility] REPOSITORY Order Comment: Comments: Fasting Comments: Fasting TYPE CODE TESTS RESULT OUT OF RANGE REFERENCE UNITS LAB L501.0100 74-106 mg/dL High GLU 163 Result Comment: Fasting Glucose result greater than or equal to 126 mg/dL suggests DIABETES MELLITUS per A.D.A. criteria. Please note revised GLUCOSE reference range effective 2017. LAB L501.1000 7-18 mg/dL High BUN 23 LAB L501.1100 0.70-1.30 mg/dL High CREAT,SERUM 1.60 Result Comment: The validity of the calculated GFR AND GFRAA in patients over 70 years has not been determined. Clinical correlation is essential. LAB L501.1110 >60 mL/min Low EST GFR 44 Result Comment: Non- GFR Calc LAB L501.1115 >60 mL/min Low EST GFR - AA 54 Result Comment: GFR Calc LAB L501.1255 ml/min Normal Estimated CRCL 37.39 LAB L501.1300 10-20 RATIO Normal BUN/CRE 14.4 LAB L501.1500 6.4-8. g/dL Normal 2 T PROT 7.2 LAB L501.1800 3.2-5. g/dL Normal 0 ALB 3.6 LAB L501.1950 2.2-4. g/dL Normal 2 GLOB 3.6 LAB L501.2000 0.9-2. RATIO Normal 4 A/G 1.0 LAB L501.2200 8.5-10 mg/dL Low .1 CA 8.4 LAB L501.4100 15-37 U/L Normal AST 21 LAB L501.4305 45-117 U/L Normal ALK P 75 LAB L501.4405 16-61 U/L Normal ALT 28 LAB L501.4600 0.20-1 mg/dL Normal .00 T BILI 0.90 LAB L501.5300 136-14 mmol/L Normal 5 NA 140 LAB L501.5600 3.5-5. mmol/L Normal 1 K 4.5 LAB L501.5900 98-107 mmol/L Normal CL 106 LAB L501.6100 21.0-3 mmol/L Normal 2.0 CO2 25.0 LAB L501.6200 5-15 Normal GAP 9 Performed By: #### L500.4050, L500.4100 #### [facility] [address] [place], [address] LIPID PROFILE Collected: 12/01/2017 Status: F Source: [place] 12:02 PM [facility] REPOSITORY Order Comment: Comments: Fasting Comments: Fasting TYPE CODE TESTS RESULT OUT OF RANGE REFERENCE UNITS LAB L501.4900 200 mg/dL Normal CHOL 169 Result Comment: <200 mg/dL Desirable 200-240 mg/dL Borderline >240 mg/dL High Risk LAB L501.5000 mg/dL High TRIG 209 Result Comment: The drugs N-Acetylcysteine and Metamizole may falsely depress this assay. Serum Triglycerides Reference Interval Normal <150 mg/dL Borderline high 150 - 199 mg/dL High 200 - 499 mg/dL Very High > or = 500 mg/dL LAB L501.6400 mg/dL Low HDL 33 Result Comment: The drugs N-Acetylcysteine and Metamizole may falsely depress this assay. Reference Range HDL <40 mg/dL Low HDL Cholesterol HDL >or= 60 mg/dL High HDL Cholesterol LAB L501.6500 0-130 mg/dL Normal LDL 94 LAB L501.6600 5-40 mg/dL High VLDL 42 Performed By: #### L500.4050, L500.4100 #### [facility] [address] [place], [address] RE-EVALUATION - PT (1) Observed: 11/24/2017 Status: F Source: MOBILE 11:03 AM [facility] [facility] REPOSITORY [facility] [address] [place], [place] [address] Fax REEVALUATION / MEDICARE RECERTIFICATION PHYSICAL THERAPY MR#: [id number] Acct: [id number] Name: ANGEL BRIGGS Rep #: [id number] : 1935 82 From: Donny Bonner PT, Cert. 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 Please see the progress note below for an update on the physical therapy plan of care! Subjective: Patient BP is running high. Patient reports dizzy. BACK PAIN is better less sharp pain Objective/Function: POSTURE: mild forward. GAIT: mild foward posture reciprocal. FLEXABLITY:hams mi tight. MMT: quads/hams 4/5,hip flexion 4-/5,ankle. LUMBAR ROM: min loss,etension mod loss,side glides min Plan Plan: CONT WITH POC Goals Goal 1:: Independant with HEP Goal Time Frame: 4-6 Weeks Goal Progress: Progressing Goal 2:: Independant with posture/maria eugenia mechanics for ADL'S Goal Time Frame: 4-6 Weeks Goal Progress: Progressing Goal 3:: Decrease lumbar pain and radicular symptoms by 50% or greater to improve function with ADL'S Goal Time Frame: 4-6 Weeks Goal Progress: Progressing Goal 4:: Patient be able to perform ADL's and housework tasks with min limiations with standing and walking. Goal Time Frame: 4-6 Weeks Goal Progress: Progressing Goal 5:: Patient to be d/c to prophalaxix Goal Time Frame: 4-6 Weeks Goal Progress: Progressing Anticipated Interventions Patient/Client Instruction: Educate patient on: Condition, Plan of Care For the Purpose of:: To decrease pain, To increase ROM, To improve muscle performance and motor function, To improve ability to perform ADL's, To increase tolerance to activity/condition/position, To improve ability of physical actions for home/community/work/leisure, To improve health of tissue, To decrease soft tissue restriction, To increase flexibility/ROM, To improve ability to perform tasks related to life management Therapeutic Exercise to Include: Strength training, Body mechanics, Postural training, Flexibilty training, Maria Del Rosario Exercises For the Purpose of:: To decrease pain, To increase ROM, To improve muscle performance and motor function, To increase tolerance to activity/condition/position, To improve ability of physical actions for home/community/work/leisure, To improve health of tissue, To decrease soft tissue restriction, To increase flexibility/ROM, To improve ability to perform tasks related to life management TENS: Yes IF ES: Yes Cryotherapy (ice pack, ice massage): Yes Thermo therapy (hot pack): Yes Ultrasound (thermal/non thermal): Yes For the Purpose of:: To decrease pain, To increase ROM, To improve muscle performance and motor function, To improve ability to perform ADL's, To increase tolerance to activity/condition/position, To improve ability of physical actions for home/community/work/leisure, To improve health of tissue, To decrease soft tissue restriction, To increase flexibility/ROM, To improve ability to perform tasks related to life management Please do not hesitate to contact me at [phone] by phone or if you have questions or concerns regarding this new plan of care! Sincerely, Donny Bonner PT, <Electronically signed by Donny Bonner PT, Cert. T, OCS> 11/24/17 1103 CC: Roc Martinez MD; Jack Augustin NP VALENTIN Signed For Medicare only, by signing this I certify the plan of care. Physicians Signature Date INTERNAL MEDICINE Observed: 11/20/2017 Status: Fina Source: YOSI OFFICE VISIT 5:10 PM [facility] [address] [place] [address] OFFICE VISIT Date of Service: 11/19/17 MR#: [id number] Acct: [id number] Name: ANGEL BRIGGS Rep #: [id number] : 1935 Provider: Roc Martinez MD Age/Sex: 82/M Location: [facility] [place].[facility] Status: Signed Intake Vital Signs11/19/17 Blood Pressure 92/42 11/19/17 Pulse Rate 96 11/19/17 Pulse Source Palpation 11/19/17 Pulse Source Palpation Intake Visit Reasons: low bp Chief Complaint: Low Bp. Allergies codeine Allergy (Severe, Verified 10/09/17 13:07) Unknown Medications Aspirin [Lo-Dose Aspirin EC] 81 mg PO DAILY 11/11/16 [History Confirmed 11/11/17] Tamsulosin HCl [Flomax] 0.4 mg PO DAILY 06/01/17 [History Confirmed 11/11/17] lisinopril 10 mg tablet 10 mg PO DAILY #90 tab 07/21/17 [Rx Confirmed 11/11/17] tiotropium bromide 18 mcg capsule with inhalation device 1 cap INHALATION QDAY #90 ea 07/21/17 [Rx Confirmed 10/09/17] metformin 500 mg tablet 500 mg PO BID #180 tab 09/09/17 [Rx Confirmed 11/11/17] apple cider vinegar 300 mg tablet mg PO 09/15/17 [History Confirmed 11/11/17] multivitamin with iron tablet 1 tab PO QDAY 09/15/17 [History Confirmed 11/11/17] mecobalamin (vitamin B12) 1,000 mcg disintegrating tablet,sublingual 1,000 mcg SUBLINGUAL QDAY 09/25/17 [History Confirmed 11/11/17] vitamin B complex-vitamin C-folic acid 0.8 mg tablet 1 tab PO QDAY 09/25/17 [History Confirmed 11/11/17] metoprolol tartrate 25 mg tablet 12.5 mg PO BID #90 tab 10/20/17 [Rx Confirmed 11/11/17] PFSH Medical History Paroxysmal atrial tachycardia (Acute) Paroxysmal ventricular tachycardia (Acute) Premature ventricular contraction (Acute) Palpitations (Acute) HTN (hypertension) (Chronic) Hyperlipidemia (Chronic) Hypertension (Chronic) Hyperlipemia (Chronic) Type 2 diabetes mellitus (Chronic) COPD (chronic obstructive pulmonary disease) (Chronic) Bilateral hip pain (Acute) Contusion of right knee (Acute) Inguinal hernia (Acute) Low back pain (Acute) Prepatellar bursitis, right knee (Acute) Thrombocytopenia (Acute) Arthritis (Chronic) BPH (benign prostatic hyperplasia) (Chronic) BPH (benign prostatic hyperplasia) (Chronic) MDS (myelodysplastic syndrome), low grade (Chronic) Surgical History H/O hernia repair (Chronic) 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 Details: ANGEL BRIGGS, is a 82yo M who presents to the office today due to concerns for low blood pressure. 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 He is currently on lisinopril and metoprolol which patient states that he has not taken today. He also reports history of falls over the last 2 weeks due to dizziness on standing from sitting position. ROS Const Constitutional: Positive for frequent falls; no anorexia, fatigue, abnormal sleep pattern or excessive sweating Eyes Eyes: No blurry vision, dry eyes, spots in vision or visual disturbances Resp Respiratory: No cough, chest congestion or hemoptysis Cardio Cardiology: Positive for lightheadedness; no chest pain at rest, leg pain with exertion, dyspnea on exertion or excessive sweating Gastro GI: No abdominal pain, constipation or change in bowel habits Musc Musculoskeletal: No abnormal walking or joint swelling Neuro Neurology: Positive for frequent falls and dizziness; no visual disturbances, abnormal walking, confusion or behavioral changes Psych Psychiatric: No confusion, No abnormal sleep pattern, No behavioral changes Endo Endocrine: No fatigue, cold intolerance or excessive sweating Exam Const General: cooperative, no acute distress Orientation: alert, awake, oriented x3 HENMT Head: atraumatic, normocephalic Ears: hearing grossly normal bilaterally Resp Effort AND Inspection: normal respiratory effort, able to speak in complete sentences Auscultation: Bilateral: Clear to Auscultation Cardio Rate: regular rate Rhythm: regular rhythm Heart Sounds: S1 normal, S2 normal GI Palpation: soft, no hepatosplenomegaly Neuro General: alert, awake, oriented x3, moves all extremities, CN's II-XI intact bilaterally Psych Appearance: grossly normal Mood: congruent mood Affect: normal affect Assessment AND Plan 1. Hypotension I95.9 Plan Possibly medication induced. Blood pressure in office today 92/42 mmHg. Currently on lisinopril and metoprolol. Hold off lisinopril. Patient does admit to not drinking enough. Advised to increase fluid intake. Saltine crackers. Call office tomorrow with blood pressure reading. Follow-up in 1 week. 2. Hypertension I10 Plan Now hypotensive. Plan as above. Will follow. This note was generated with [employer] dictation software. It may contain incorrect words, spelling, and punctuation that were not noted in checking the note before signing. Plan Detail Follow Up 1 Week Coding Level of Care Code Off vis,est,level 3 Diagnoses Hypotension I95.9 Hypertension I10 11/20/17 1710 <Electronically signed by Roc Martinez MD> Date Roc Martinez MD Cosigner Signature: Date (if applicable) CC: PSA,TOTAL- DIAGNOSTIC Collected: 11/13/2017 Status: F Source: YOSI 8:46 AM [facility] REPOSITORY TYPE CODE TESTS RESULT OUT OF RANGE REFERENCE UNITS LAB L501.9940 0.0-4.0 ng/mL PSA, Normal DIAGNOSTIC 1.25 Result Comment: This test was performed using the TPSA assay method for the [employer] chemistry system. Values obtained with different assay methods cannot be used interchangably. When changing PSA assays in the course of monitoring a patient, additional sequential testing should be carried out to confirm baseline values. Performed By: #### L501.9940 #### [facility] [address] [place], [address] INITAL EVALUATION (1) Observed: 10/26/2017 Status: F Source: YOSI - PT 4:29 PM [facility] REPOSITORY [facility] [place], [place] [address] Fax REHABILITATION SERVICES INITIAL EVALUATION MR#: [id number] Acct: [id number] Name: ANGEL BRIGGS Rep #: [id number] : 1935 82 From: Donny Bonner PT, Cert. MDT, OCS Referring Dr.: Jack Augustin WIRER MAINTENANCE Status: REG RCR Insurance: MEDICARE PART A B [employer] Patient's Visit Information ANGEL BRIGGS is a 82 year old M referred to Physical Therapy by MANUELA Moreira NP.MYODE with a diagnosis of . Date of Evaluation: 10/23/17 Physical Therapist: Donny Bonner PT, - Visit Plan Frequency: 2x /Week Duration: 4 Weeks Plan: MODALITIES ,DLS,POSTURAL EX'S,STRENGTHENING - Subjective Subjective: This 82 y/o male presents physical therapy with low back pain with sciatica since Jul 2017.Patient has had pain many years. Patient fell In Jul on right knee developed bursitis and had to get knee drained. Symptoms worse with standing,walking,bending and lifting. Symptom better with rest and sitting. Location of symtoms worse woth left gluteus and lateral hip.Denies parathesia/tingling ,described as sharp pain. Patient has Tens unit at home .Did have chiropractor showed DDD. Pain doesnt affect sleeping. Pain affects affect quality of life and function. SOCIAL: single. VOCATION: retired. 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 NEURO: denies parathesia/tingling,reflexes L3-4,L4-5,L5-S1. GAIT: normal eze reciprocal pattern. MMT: 4/5 quads/hams/hip ,ankle 4/5. LUMBAR ROM : flexion min loss ,extension mod loss,side glides mod loss. FLEXABLITY: hams min tight. SYMMTRIES: align - Special Tests L/S Slump test left side: Negative L/S Slump test right side: Negative L/S Left Straight Leg Raise: Negative L/S Right Straight Leg Raise: Negative Lumbar Standing: Flexion - Mechanical Response: No effect Lumbar Standing: Flexion - Symptoms During Testing: No effect Lumbar Standing: Flexion - Symptoms After Testing: No effect Lumbar Standing: Extension - Mechanical Response: No effect Lumbar Standing: Extension - Symptoms During Testing: Increases Lumbar Standing: Extension - Symptoms After Testing: No worse Lumbar Standing: Right Side Glides - Mechanical Response: No effect Lumbar Standing: Right Side [place] - Symptoms During Testing: No effect Lumbar Standing: Right Side [place] - Symptoms After Testing: No effect Lumbar Standing: Left Side [place] - Mechanical Response: No effect Lumbar Standing: Left Side [place] - Symptoms During Testing: No effect Lumbar Standing: Left Side [place] - Symptoms After Testing: No effect - Goals Goal 1:: Independant with HEP Goal Time Frame: 4-6 Weeks Goal 2:: Independant with posture/maria eugenia mechanics for ADL'S Goal Time Frame: 4-6 Weeks Goal 3:: Decrease lumbar pain and radicular symptoms by 50% or greater to improve function with ADL'S Goal Time Frame: 4-6 Weeks Goal 4:: Patient be able to perform ADL's and housework tasks with min limiations with standing and walking. Goal Time Frame: 4-6 Weeks Goal 5:: Patient to be d/c to prophalaxix Goal Time Frame: 4-6 Weeks - Rehabilitation Potential Physical Therapy Diagnosis: This patient presents with lumbar pain with radicular symtoms in left leg possible lateral stenosis worse with walking ,standing better with sitting thus impairs ablity to perform ADL'S and housework tasks. Rehabilitation Potential: Good - Anticipated Interventions Patient/Client Instruction: Educate patient on: Condition, Plan of Care For the Purpose of:: To decrease pain, To increase ROM, To improve muscle performance and motor function, To improve ability to perform ADL's, To increase tolerance to activity/condition/position, To improve ability of physical actions for home/community/work/leisure, To improve health of tissue, To decrease soft tissue restriction, To increase flexibility/ROM, To improve ability to perform tasks related to life management Therapeutic Exercise to Include: Strength training, Body mechanics, Postural training, Flexibilty training, Maria Del Rosario Exercises For the Purpose of:: To decrease pain, To increase ROM, To improve muscle performance and motor function, To increase tolerance to activity/condition/position, To improve ability of physical actions for home/community/work/leisure, To improve health of tissue, To decrease soft tissue restriction, To increase flexibility/ROM, To improve ability to perform tasks related to life management TENS: Yes IF ES: Yes Cryotherapy (ice pack, ice massage): Yes Thermo therapy (hot pack): Yes Ultrasound (thermal/non thermal): Yes For the Purpose of:: To decrease pain, To increase ROM, To improve muscle performance and motor function, To improve ability to perform ADL's, To increase tolerance to activity/condition/position, To improve ability of physical actions for home/community/work/leisure, To improve health of tissue, To decrease soft tissue restriction, To increase flexibility/ROM, To improve ability to perform tasks related to life management Thank you for the opportunity to evaluate your patient. For Medicare and Medicare HMO plans, please review the plan of care and approve it. It will need to be FAXED BACK to us at [phone] for Medicare purposes. Please let me know if there are questions or concerns regarding this plan of care. Physician Signature: Date: <Electronically signed by Donny Bonner PT, Cert. MALIKA, OCS> 10/26/17 0963 CC: Roc Martinez MD; Jack Augustin NP JLA Signed For Medicare only, by signing this I certify the plan of care. Physicians Signature Date INTERNAL MEDICINE Observed: 10/21/2017 Status: F Source: MOBILE OFFICE VISIT 8:58 AM [facility] [address] [address] OFFICE VISIT Date of Service: 10/21/17 MR#: [id number] Acct: [id number] Name: ANGEL BRIGGS Rep #: [id number] : 1935 Provider: Jack Augustin NP Age/Sex: 82/M Location: [facility] [place] Status: Signed Intake Vital Signs10/21/17 Height 5 ft 8 in 10/21/17 Weight: 216 lb 10/21/17 Body Mass Index (BMI) 32.8 10/21/17 Blood Pressure 124/60 10/21/17 Blood Pressure Location Lt brachial Intake Visit Reasons: 3 M FU Chief Complaint: back pain Is patient in pain?: Yes (back ) Pain scale (1-10): 10 Allergies codeine Allergy (Severe, Verified 10/09/17 13:07) Unknown Medications Aspirin [Lo-Dose Aspirin EC] 81 mg PO DAILY 11/11/16 [History Confirmed 10/09/17] Tamsulosin HCl [Flomax] 0.4 mg PO DAILY 06/01/17 [History Confirmed 10/09/17] lisinopril 10 mg tablet 10 mg PO DAILY #90 tab 07/21/17 [Rx Confirmed 10/09/17] tiotropium bromide 18 mcg capsule with inhalation device 1 cap INHALATION QDAY #90 ea 07/21/17 [Rx Confirmed 10/09/17] metformin 500 mg tablet 500 mg PO BID #180 tab 09/09/17 [Rx Confirmed 10/09/17] apple cider vinegar 300 mg tablet mg PO 09/15/17 [History Confirmed 10/09/17] multivitamin with iron tablet 1 tab PO QDAY 09/15/17 [History Confirmed 10/09/17] mecobalamin (vitamin B12) 1,000 mcg disintegrating tablet,sublingual 1,000 mcg SUBLINGUAL QDAY 09/25/17 [History Confirmed 10/09/17] vitamin B complex-vitamin C-folic acid 0.8 mg tablet 1 tab PO QDAY 09/25/17 [History Confirmed 10/09/17] metoprolol tartrate 25 mg tablet 12.5 mg PO BID #90 tab 10/20/17 [Rx] prednisone 10 mg tablet See Dose Instructions PO QDAY #30 tab 10/21/17 [Rx Confirmed 10/21/17] [facility] Medical History BPH (benign prostatic hyperplasia) (Chronic) Hypertension (Chronic) Hyperlipemia (Chronic) Arthritis (Chronic) Thrombocytopenia (Chronic) Arthritis (Acute) BPH (benign prostatic hyperplasia) (Acute) Diabetes mellitus type II, non insulin dependent (Acute) Hyperlipidemia (Acute) Inguinal hernia (Acute) Thrombocytopenia (Acute) HTN (hypertension) (Chronic) Surgical History H/O hernia repair (Acute) History of left hip replacement (Acute) History of left hip replacement (Acute) history of left hand surgery (Acute) Family History Mother Cancer, Onset Age: 59 Pancreatic Father Cancer, Onset Age: 44 Intestinal Brother Cancer, Onset Age: 78 Son CVA (cerebral vascular accident) Diabetes Mother Cancer Social History Smoking Status: Former smoker how long ago did patient quit smokin second hand exposure: No alcohol intake: never substance use type: does not use what type of physical activity do you participate in: none HPI HPI Chief Complaint: back pain Details: ANGEL BRIGGS, is a 82 M who presents to the office today for an acute visit of ongoing low back pain that radiates to his left hip/thigh and down the leg on occasion. He has a past medical history which is significant for hypertension, hyperlipidemia, myelodysplastic syndrome, type 2 diabetes mellitus [id number], BPH, and osteoarthritis. He states that what is bothering him the most today is his low back pain that he is having. The patient states that it is an intermittent 7 out of 10 pain and is alleviated by walking and certain position changes and worsened by sitting. He does however state that currently he does not notice intermittent pain. This is been going on for over 8 weeks now secondary to a nontraumatic injury and secondary to sitting in a recliner for 4 weeks straight when he was caring for his girlfriend. He was previously seen by a chiropractor which did not provide much relief. On 09/21/2017 he presented to the urgent care and was seen for his low back and left hip pain and x-rays were done which demonstrated degenerative changes. The patient does state that he is interested in doing physical therapy. He states that he has had flareup of his back pain before in the past and on occasion has had to be on steroids in the past. the patient does note that his blood sugars have been well controlled lately and his most recent A1c was 5.7. He denies any bowel or bladder dysfunction. The patient was recently seen by Namrata Nunez and had his right knee bursitis drained. He states that his right knee is much improved now and denies any swelling. The patient otherwise denies any fever, chills, nausea, vomiting, shortness of breath, chest pain or pressure, palpitations, orthopnea, lower extremity edema, syncope or presyncopal episodes. ROS Const Constitutional: No weight change, body ache, chills, fatigue, sleep problems, fever(s), change in appetite, snoring, weakness, frequent falls, headache(s) or excessive sweating Eyes Eyes: No change in vision, eye pain, light sensitivity or blurry vision ENT ENT: No headache(s), abnormal hearing, ear pain, tinnitus, nasal congestion, sore throat or neck pain Resp Respiratory: No snoring, cough, shortness of breath or wheezing Cardio Cardiology: No excessive sweating, chest pain at rest, chest pain with exertion, shortness of breath, dyspnea on exertion, palpitations, orthopnea or lightheadedness Gastro GI: No abdominal pain, change in bowel habits, constipation, diarrhea, vomiting, nausea/dyspepsia or cramping Musc Musculoskeletal: Positive for back pain and tingling (down left leg at times); no neck pain, abnormal walking, joint pain, limited range of motion, numbness or muscle weakness Skin Skin: No redness, dry skin, itching, lesions, wounds or rash Neuro Neurology: Positive for tingling (down left leg at times); no weakness, frequent falls, headache(s), abnormal hearing, abnormal walking, numbness, abnormal speech, dizziness or memory loss Psych Psychiatric: No change in appetite, No memory loss, No anxiety, No depression, No Thoughts of harming yourself/Others Endo Endocrine: No fatigue, excessive sweating, cold intolerance, increased thirst/drinking, heat intolerance, flushing or increased hunger Aller/Imm Allergy/Immunologic: No wheezing, itchy eyes, hives or seasonal allergy symptoms Blade/Lymp Hematologic/Lymphatic: No easy bleeding, easy bruising or enlarged lymph nodes Exam Const General: cooperative (elderly), comfortable, no acute distress Nutritional Appearance: average body habitus, well nourished Orientation: alert, oriented x3 Limitations: mental status not altered HENMT Head: normal to inspection Ears: hearing grossly normal bilaterally Nose: external nose normal Eyes General: appearance normal, both eyes and all related structures Resp Effort AND Inspection: normal respiratory effort, able to speak in complete sentences, normal respiratory pattern, symmetric chest movement, no audible wheezes, no cough Auscultation: Bilateral: Clear to Auscultation Cardio Palpation: normal PMI Rate: regular rate Heart Sounds: S1 normal, S2 normal, normal S1 and S2, no click, no gallops, no murmurs, no rubs GI Inspection: normal to inspection Auscultation: normal bowel sounds, no hyperactive bowel sounds, no hypoactive bowel sounds Palpation: soft, no hepatosplenomegaly Musc Musculoskeletal: No muscle weakness, joint tenderness or decreased ROM Thoracic/Lumbar Spine: lumbar spinal tenderness at L2, at L3 and at L1, straight leg raise negative, other (tenderness on L lumbar region down to L buttock and lateral thigh) Skin General: no rashes or lesions noted, elasticity normal, turgor normal Lesions: no lesions Rashes: no rashes Neuro General: alert, awake, oriented x3, CN's II-XI intact bilaterally Speech: speech normal Gait: normal gait Motor: muscle tone normal throughout Extrem General: normal to inspection, normal gait (unguarded), no edema, no pedal edema Psych Appearance: grossly normal Mental Status: mental status grossly normal Affect: normal affect Attitude: cooperative Thought Process: normal Assessment AND Plan 1. Low back pain with left-sided sciatica M54.42 Plan The patient does have low back pain with left-sided sciatica which is now been going on for over 8 weeks, discussed importance of doing physical therapy. Previous x-rays reviewed which showed demonstrated degenerative changes. Trial of patient on a prednisone taper. He has not been trying any [id number] treatments for the pain, discussed taking etco-pjb-ixaaluv Tylenol. Patient verbalized understanding. Patient may need referred to pain management in the future if this continues or possibly an MRI of the lumbar spine. However instructed patient that due to insurance reasons, he would need to complete some physical therapy first before ordering these advanced imaging. Patient verbalized understanding. No caudal signs at this time. Educated on red flag symptoms that require urgent medical attention. Orders Referrals: 2. Type 2 diabetes mellitus E11.9 Plan Discussed with patient monitoring his blood sugars closely as the prednisone taper may because these to be elevated. Discussed with him red flag symptoms and when the call the office. Patient verbalized understanding. Patient to follow-up in 6-8 weeks or sooner if needed. Dragon disclaimer Plan Detail Other Medications New: prednisone 4 tabs for 3 days, then 3 tabs for 3 days, then 2 tabs for 3 days, then 1 tab f or 3 days PO QDAY; administer with food or milk Follow Up 6-8 weeks or sooner if needed Coding Level of Care Code Off vis,est,level 3 Diagnoses Low back pain with left-sided sciatica M54.42 Type 2 diabetes mellitus E11.9 10/21/17 0858 <Electronically signed by Jack ROY> Date Jack ROY Cosigner Signature: Date (if applicable) CC: ORTHOPEDIC VISIT Observed: 10/12/2017 Status: F Source: [place] REPORT 2:22 PM [facility] [place] REPOSITORY [facility] Orthopaedics AND Sports Medicine [address] [place] [id number] OFFICE VISIT Date of Service: 10/09/17 MR#: [id number] Acct: [id number] Name: ANGEL BRIGGS Rep #: [id number] : 1935 Provider: Yoandy Nguyen DO Age/Sex: 82/M Location: [facility] [place].[facility] Status: Signed Intake Intake Visit Reasons: right knee Is patient in pain?: No Allergies codeine Allergy (Severe, Verified 10/09/17 13:07) Unknown Medications Aspirin [Lo-Dose Aspirin EC] 81 mg PO DAILY 11/11/16 [History Confirmed 10/09/17] Tamsulosin HCl [Flomax] 0.4 mg PO DAILY 06/01/17 [History Confirmed 10/09/17] lisinopril 10 mg tablet 10 mg PO DAILY #90 tab 07/21/17 [Rx Confirmed 10/09/17] tiotropium bromide 18 mcg capsule with inhalation device 1 cap INHALATION QDAY #90 ea 07/21/17 [Rx Confirmed 10/09/17] metformin 500 mg tablet 500 mg PO BID #180 tab 09/09/17 [Rx Confirmed 10/09/17] apple cider vinegar 300 mg tablet mg PO 09/15/17 [History Confirmed 10/09/17] metoprolol succinate ER 25 mg tablet,extended release 24 hr 25 mg PO ONCE tab 09/15/17 [History Confirmed 10/09/17] multivitamin with iron tablet 1 tab PO QDAY 09/15/17 [History Confirmed 10/09/17] mecobalamin (vitamin B12) 1,000 mcg disintegrating tablet,sublingual 1,000 mcg SUBLINGUAL QDAY 09/25/17 [History Confirmed 10/09/17] vitamin B complex-vitamin C-folic acid 0.8 mg tablet 1 tab PO QDAY 09/25/17 [History Confirmed 10/09/17] [facility] Medical History BPH (benign prostatic hyperplasia) (Chronic) Hypertension (Chronic) Hyperlipemia (Chronic) Arthritis (Chronic) Thrombocytopenia (Chronic) Arthritis (Acute) BPH (benign prostatic hyperplasia) (Acute) Diabetes mellitus type II, non insulin dependent (Acute) Hyperlipidemia (Acute) Inguinal hernia (Acute) Thrombocytopenia (Acute) HTN (hypertension) (Chronic) Surgical History H/O hernia repair (Acute) 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 On 09/25/17 he received injection in right knee along with aspiration. He denies having pain with his right knee since then. He does complain of swelling. No tingling/numbness. He has used ice once. ROS Const Reports system reviewed and no additional complaints, except as docu Eyes Reports system reviewed and no additional complaints, except as docu ENT Reports system reviewed and no additional complaints, except as docu Card Reports system reviewed and no additional complaints, except as docu Resp Reports system reviewed and no additional complaints, except as docu GI Reports system reviewed and no additional complaints, except as docu Reports system reviewed and no additional complaints, except as docu Musc Reports joint swelling Skin/Breast Reports system reviewed and no additional complaints, except as docu Neuro Yes system reviewed and no additional complaints, except as docu Psych Reports system reviewed and no additional complaints, except as docu Blade/Lymph Reports system reviewed and no additional complaints, except as docu Aller/Immun Reports system reviewed and no additional complaints, except as docu Ortho Exam Right Knee Skin/Wound: Yes CDI Contralateral Normal: Yes Swelling: Yes Homans Sign: No Knee ROM: Yes ROM-Extension -20 to 0, Yes ROM-Flexion 0-140, Yes ROM-Passive Extension -10 to 0, Yes ROM-Passive Flexion 0-140 Examination: No Med jt line tenderness, No Lat jt line tenderness, No TTP inf pole patella, No Crepitus, No Pain with flexion, No Pain with extention, No Marce's Test, No Dial at 90, No Dial at 60, No Duck Walk Quad Atrophy: No Stability: NML: Anterior Drawer, NML: Deandra, NML: Posterior Drawer, NML: Valgus 0, NML: Valgus 30, NML: Varus 0, NML: Varus 30, NML: Dial 90, NML: Dial 30 Popliteal Adenopathy: No Apprehension with Lateral Translation: No Patellar Tilt Normal: Yes Patella Grind: No KNEE: Alert and oriented 3 in no acute distress. Appropriate eye contact affect. Walks a mild antalgic gait. Otherwise intact from L1-S1 distributions. He has positive pulses. No adenopathy. His right knee shows a small amount of prepatellar effusion is remnant from previous. No signs of any erythema. The bursal sac appears to be developing more borderline at this time. Patient was prepped and draped in the usual fashion after appropriate counseling consenting for right prepatellar knee aspirate attempt. Again prepped and draped in usual fashion and then we placed an 18-gauge needle into the prepatellar bursa and aspirated out maybe 3 cc at best of relief darkened and collagenous type of blood. At that point time we placed about 1 cc of steroid back into the knee joint to help with scar formation and a compressive wrap applied. Assessment AND Plan Problems 1. Contusion of right knee, initial encounter S80.01XA 2. Prepatellar bursitis, right knee M70.41 Plan Assessment: Right knee prepatellar bursitis-right knee pain. Plan: At this point time a small amount of coagulated blood was removed. A compressive wrap applied. Told patient just to keep an eye on the knee but I think at this point time no further aspirates will be warranted. If he remains asthmatic consideration for an open bursectomy laterally do not think he can need unless he were developed an infection. This point I will see the patient back on a as needed basis. Any major issues please contact. See note for aspirate procedure. Coding Level of Care Code Off vis,est,level 3 Diagnoses Contusion of right knee, initial encounter S80.01XA Encounter type: initial encounter Prepatellar bursitis, right knee M70.41 10/12/17 1422 <Electronically signed by Yoandy Nguyen DO> Date Yoandy Nguyen DO Cosign Signature: Date (if applicable) CC: ORTHOPEDIC VISIT Observed: 10/07/2017 Status: F Source: [place] REPORT 3:13 PM [facility] [place] REPOSITORY [facility] Orthopaedics AND Sports Medicine [address] [place] [address] [place] [address] OFFICE VISIT Date of Service: 09/25/17 MR#: [id number] Acct: [id number] Name: ANGEL BRIGGS Rep #: [id number] : 1935 Provider: Yoandy Nguyen DO Age/Sex: 81/M Location: [facility] [place] Status: Signed Intake Vital Signs09/25/17 Body Mass Index (BMI) 33.7 09/25/17 Blood Pressure 124/72 09/25/17 Height 5 ft 8 in 09/25/17 Weight: 220 lb 09/25/17 Body Mass Index (BMI) 33.4 Intake Visit Reasons: Right Knee Is patient in pain?: Yes Pain scale (1-10): 3 Allergies codeine Allergy (Severe, Verified 09/25/17 15:42) Unknown Medications Aspirin [Lo-Dose Aspirin EC] 81 mg PO DAILY 11/11/16 [History Confirmed 09/25/17] Tamsulosin HCl [Flomax] 0.4 mg PO DAILY 06/01/17 [History Confirmed 09/25/17] lisinopril 10 mg tablet 10 mg PO DAILY #90 tab 07/21/17 [Rx Confirmed 09/25/17] tiotropium bromide 18 mcg capsule with inhalation device 1 cap INHALATION QDAY #90 ea 07/21/17 [Rx Confirmed 09/25/17] metformin 500 mg tablet 500 mg PO BID #180 tab 09/09/17 [Rx Confirmed 09/25/17] apple cider vinegar 300 mg tablet mg PO 09/15/17 [History Confirmed 09/25/17] metoprolol succinate ER 25 mg tablet,extended release 24 hr 25 mg PO ONCE tab 09/15/17 [History Confirmed 09/25/17] multivitamin with iron tablet 1 tab PO QDAY 09/15/17 [History Confirmed 09/25/17] mecobalamin (vitamin B12) 1,000 mcg disintegrating tablet,sublingual 1,000 mcg SUBLINGUAL QDAY 09/25/17 [History Confirmed 09/25/17] vitamin B complex-vitamin C-folic acid 0.8 mg tablet 1 tab PO QDAY 09/25/17 [History Confirmed 09/25/17] [facility] Medical History BPH (benign prostatic hyperplasia) (Chronic) Hypertension (Chronic) Hyperlipemia (Chronic) Arthritis (Chronic) Thrombocytopenia (Chronic) Arthritis (Acute) BPH (benign prostatic hyperplasia) (Acute) Diabetes mellitus type II, non insulin dependent (Acute) Hyperlipidemia (Acute) Inguinal hernia (Acute) Thrombocytopenia (Acute) HTN (hypertension) (Chronic) Surgical History H/O hernia repair (Acute) 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 He states on 07/31/17 he fell and hit his knee onto the concrete. He states about 1 week later the swelling of the knee started. He denies any pain. No tingling/numbness. He would like his knee drained today. ROS Const Reports system reviewed and no additional complaints, except as docu Eyes Reports system reviewed and no additional complaints, except as docu ENT Reports system reviewed and no additional complaints, except as docu Card Reports system reviewed and no additional complaints, except as docu Resp Reports system reviewed and no additional complaints, except as docu GI Reports system reviewed and no additional complaints, except as docu Reports system reviewed and no additional complaints, except [facility] Musc Reports joint swelling Skin/Breast Reports system reviewed and no additional complaints, except as [facility] Neuro Yes system reviewed and no additional complaints, except as [facility] Psych Reports system reviewed and no additional complaints, except as [facility] Endo Reports system reviewed and no additional complaints, except as [facility] Blade/Lymph Reports system reviewed and no additional complaints, except as [facility] Aller/Immun Reports system reviewed and no additional complaints, except as [facility] Orth[facility] Exam Right Knee Skin/Wound: Yes CDI Contralateral Normal: Yes Swelling: Yes Homans Sign: No 2+: Effusion (prepatella effusion) Knee ROM: Yes ROM-Extension -20 to 0, Yes ROM-Passive Flexion 0-140, Yes ROM-Flexion 0-140, Yes ROM-Passive Extension -10 to 0 Examination: No Med jt line tenderness, No Lat jt line tenderness, No TTP inf pole patella, No Crepitus, No Pain with flexion, No Pain with extention, No Marce's Test, No Dial at 90, No Dial at 60, No Duck Walk Quad Atrophy: No Stability: NML: Anterior Drawer, NML: Deandra, NML: Posterior Drawer, NML: Valgus 0, NML: Valgus 30, NML: Varus 0, NML: Varus 30, NML: Dial 90, NML: Dial 30 Popliteal Adenopathy: No Apprehension with Lateral Translation: No Patellar Tilt Normal: Yes Patella Grind: No KNEE: Alert and oriented 3 no acute distress. Eye contact and affect. Otherwise intact L1 S1 distributions. +2 pulses. EHL anterior gastrocsoleus peroneals quads hamstrings 5 out of 5. Right knee shows a large prepatellar bursa effusion and bursitis. No erythema. No streaking changes. No popliteal masses. X-rays: Evaluated myself patient-normal radiographic appearance the near knee with a soft tissue mass consistent with a prepatellar bursitis. Left Knee Skin/Wound: Yes CDI Contralateral Normal: Yes Swelling: No Homans Sign: No Quad Atrophy: No Stability: NML: Anterior Drawer, NML: Deandra, NML: Posterior Drawer, NML: Valgus 0, NML: Valgus 30, NML: Varus 0, NML: Varus 30, NML: Dial 90, NML: Dial 30 Apprehension with Lateral Translation: No Patellar Tilt Normal: Yes Patella Grind: No Assessment AND Plan Problems 1. Prepatellar bursitis, right knee M70.41 2. Contusion of right knee, initial encounter S80.01XA Plan Assessment: Right knee prepatellar bursitis right knee pain right knee contusion. Plan: At this point time patient has a symptomatic prepatellar bursitis and was wondering what his options are. Told him he can just do a simple compression technique and wait otherwise consideration for an aspiration. Told him that if it was a simple effusion and bursitis and consented to make sure there was no signs of any infection. However the patient takes some aspirin etc. it is a good chance that it could be bloody related to anticoagulation. Patient agreed to proceed with the prepatellar aspiration and steroid injection to help with decreasing inflammation try to get the bursa the scar now. Patient was counseled and consented for right knee prepatellar bursa aspiration. He was prepped and draped in usual fashion. We then entered into the prepatellar bursa without difficulty and aspirated roughly 25 cc of a bloody bursal fluid. At that point time we placed a 3 cc cocktail of 2 cc Marcaine 1 cc of Kenalog back in through the bursa to help with compression. Compressive wrap was then applied. At this point time continue with ice. Told patient limit his anti-inflammatories if able. I will see the patient back really on a as needed basis. If he has recurrence of the effusion we can try a repeat aspiration. If it becomes problematic consideration for an actual bursectomy. Medications Discontinued: blood-glucose meter kit Discontinued Recheck glucose daily E11.9 ason: Pt no longer taking lancets (OneTouch UltraSoft Lancets) DiCheck glucose daily for type 2 diabetes meE11.9 scontinued Reason: Pt no longer taking llitus Coding Level of Care Code Off vis,new,level 3 Diagnoses Prepatellar bursitis, right knee M70.41 Contusion of right knee, initial encounter S80.01XA Encounter type: initial encounter 10/07/17 9773 <Electronically signed by Yoandy Nguyen DO> Date Yoandy Mares Signature: Date (if applicable) CC: URGENT CARE VISIT Observed: 09/21/2017 Status: F Source: [place] REPORT 10:09 AM [facility] [place] [facility] REPOSITORY [facility] [address] [place] [address] [address] [place] [address] OFFICE VISIT Date of Service: 09/21/17 MR#: [id number] Acct: [id number] Name: ANGEL BRIGGS Rep #: [id number] : 1935 Provider: David SPENCER Age/Sex: 81/M Location: [facility] [place].[facility] Status: Signed Intake Vital Signs09/21/17 Height 5 ft 7.5 in Intake Visit Reasons: BACK PAIN/SCIATICA Chief Complaint: low back, bilateral hip, and right knee pain Is patient in pain?: Yes Allergies codeine Allergy (Severe, Verified 09/21/17 08:50) Unknown Medications Aspirin [Lo-Dose Aspirin EC] 81 mg PO DAILY 11/11/16 [History Confirmed 09/21/17] Ezetimibe/Simvastatin [Vytorin 10-20 MG Tablet] 1 tab PO DAILY 11/11/16 [History Confirmed 09/21/17] Metformin HCl [Glucophage] 1,000 mg PO BID 11/11/16 [History Confirmed 09/21/17] Metoprolol Tartrate [Lopressor (Beta Daniel)] 25 mg PO BID 11/11/16 [History Confirmed 09/21/17] Tamsulosin HCl [Flomax] 0.4 mg PO DAILY 06/01/17 [History Confirmed 09/21/17] lisinopril 10 mg tablet 10 mg PO DAILY #90 tab 07/21/17 [Rx Confirmed 09/21/17] tiotropium bromide 18 mcg capsule with inhalation device 1 cap INHALATION QDAY #90 ea 07/21/17 [Rx Confirmed 09/21/17] apple cider vinegar 300 mg tablet mg PO QDAY ea 07/27/17 [History Confirmed 09/21/17] blood sugar diagnostic strips See Dose Instructions .ROUTE .MEDSUPPLY #50 ea 09/01/17 [Rx Confirmed 09/21/17] blood-glucose meter kit See Dose Instructions .ROUTE .MEDSUPPLY #1 ea 09/01/17 [Rx Confirmed 09/21/17] lancets See Dose Instructions .ROUTE .MEDSUPPLY #50 ea 09/01/17 [Rx Confirmed 09/21/17] metformin 500 mg tablet 500 mg PO BID #180 tab 09/09/17 [Rx Confirmed 09/21/17] apple cider vinegar 300 mg tablet mg PO 09/15/17 [History Confirmed 09/21/17] aspirin 81 mg tablet,delayed release 81 mg PO QDAY 09/15/17 [History Confirmed 09/21/17] lisinopril 10 mg tablet 10 mg PO QDAY 09/15/17 [History Confirmed 09/21/17] metoprolol succinate ER 25 mg tablet,extended release 24 hr 25 mg PO ONCE tab 09/15/17 [History Confirmed 09/21/17] multivitamin with iron tablet 1 tab PO QDAY 09/15/17 [History Confirmed 09/21/17] tamsulosin 0.4 mg capsule 0.4 mg PO QDAY 09/15/17 [History Confirmed 09/21/17] tiotropium bromide 18 mcg capsule with inhalation device 18 mcg INHALATION QDAY 09/15/17 [History Confirmed 09/21/17] vitamin B complex-vitamin C-folic acid 0.8 mg tablet 1 tab PO QDAY 09/15/17 [History Confirmed 09/21/17] [facility] Medical History BPH (benign prostatic hyperplasia) (Chronic) Hypertension (Chronic) Hyperlipemia (Chronic) Arthritis (Chronic) Thrombocytopenia (Chronic) Arthritis (Acute) BPH (benign prostatic hyperplasia) (Acute) Diabetes mellitus type II, non insulin dependent (Acute) Hyperlipidemia (Acute) Inguinal hernia (Acute) Thrombocytopenia (Acute) HTN (hypertension) (Chronic) Surgical History H/O hernia repair (Acute) History of left hip replacement (Acute) History of left hip replacement (Acute) history of left hand surgery (Acute) Family History (Reviewed 09/21/17 @ 08:51 by Marlin Christensen Mother Cancer, Onset Age: 59 Pancreatic Father Cancer, Onset Age: 44 Intestinal Brother Cancer, Onset Age: 78 Son CVA (cerebral vascular accident) Diabetes Mother Cancer Social History Smoking Status: Former smoker how long ago did patient quit smokin second hand exposure: No alcohol intake: never substance use type: does not use what type of physical activity do you participate in: none HPI HPI Chief Complaint: low back, bilateral hip, and right knee pain Details: ANGEL BRIGGS, is a 81 M who presents to the office today for initial evaluation low back pain and bilateral hip pain and right knee pain status post fall approximately 2 weeks ago. Patient notes slipping falling landing on the anterior aspect of right knee on icy ground causing immediate pain and swelling to the same. Incidentally, he notes having had previously history of left hip replacement and chronic low back pain and has seen orthopedics, a local chiropractor, and his primary care physician regarding chronic discomfort to above affected areas as mentioned. He notes no locking or giving way of right knee and no c/o right ankle pain. He notes swelling to anterior aspect of right knee has not improved since date of injury, even after applying maria eugenia wrap to same as directed by his pcp. No other c/o at this time. ROS Const Constitutional: Positive for chills; no excessive sweating, abnormal sleep pattern, fever(s) or night sweats Eyes Eyes: No change in vision ENT ENT: Positive for post nasal drip and sinus pressure; no abnormal hearing, ear pain, ear discharge, ear pressure or hearing loss Resp Respiratory: Positive for cough; no chest congestion Cardio Cardiology: No excessive sweating, chest pain at rest, chest pain with exertion, shortness of breath, dyspnea on exertion, irregular heart rhythm, generalized swelling or leg pain with exertion Gastro GI: No abdominal pain, change in stool character or change in bowel habits Musc Musculoskeletal: Positive for joint pain (bilateral hip and right knee) and back pain; no limited range of motion Skin Skin: No change in hair or sores Neuro Neurology: No abnormal hearing, abnormal speech or abnormal movements Psych Psychiatric: No abnormal sleep pattern Endo Endocrine: No excessive sweating, change in body appearance, cold intolerance or heat intolerance Aller/Imm Allergy/Immunologic: No food intolerance Blade/Lymp Hematologic/Lymphatic: No easy bruising Exam Const General: cooperative, healthy appearing, no acute distress, uncomfortable Nutritional Appearance: average body habitus Orientation: alert, awake, oriented x3 HENMT Head: normal to inspection Ears: hearing grossly normal bilaterally Nose: external nose normal Eyes General: appearance normal, both eyes and all related structures Neck Neck: normal visual inspection, full ROM Lymphatic: no lymphadenopathy noted Chest Chest palpation AND inspection: normal inspection of the chest Resp Effort AND Inspection: normal respiratory effort, able to speak in complete sentences, symmetric chest movement Cardio Rate: regular rate Pulses: radial pulses present GI Inspection: normal to inspection Musc Musculoskeletal: Yes decreased ROM (low back and bilateral hip); no joint warmth Thoracic/Lumbar Spine: thoracic and lumbar spine normal to inspection, thoraco-lumbar ROM not normal Skin General: no rashes or lesions noted Neuro General: alert, awake, oriented x3, gait normal Cognition: normal cognition Speech: speech normal Gait: normal gait Motor: muscle tone normal throughout Sensory Exam: no sensory deficits noted Extrem General: abnormal to inspection (right knee bursal swelling/ fluctuance w/o palpable tenderness), other (LS spine, Bilat. hip, R knee xrays = No fracture, ? radiol. interpretation) Psych Appearance: grossly normal Mental Status: mental status grossly normal Mood: congruent mood Affect: normal affect Speech and Movement: speech and movement normal Attitude: cooperative Thought Process: normal Thought Content: normal Judgment: judgment good Assessment AND Plan Problems 1. Prepatellar bursitis, right knee M70.41 2. Contusion of right knee S80.01XA 3. Bilateral hip pain M25.551; M25.552 4. Low back pain M54.5 Plan Reviewed today's radiographs with patient in office today. Recommended to patient that he keep his September 24, [address] Joyner as previously arranged. Continue current medical regimen. Patient states knowledge and understanding all the above. Orders Orders: Coding Level of Care Code Off vis,est,level 4 Diagnoses Prepatellar bursitis, right knee M70.41 Contusion of right knee S80.01XA Bilateral hip pain M25.551; M25.552 Low back pain M54.5 09/21/17 1009 <Electronically signed by David SPENCER> Date Daivd SPENCER [facility] Signature: Date (if applicable) CC: KNEE 3 VIEWS Observed: 09/21/2017 Status: F Source: [place] 9:11 AM [facility] REPOSITORY [facility] Imaging Services [address] [place] [address] Knee 3 Views MR#: [id number] Acct: [id number] Name: ANGEL BRIGGS Rep #: [id number] : 1935 81 From: Harpreet Palmer MD PCP: Roc Martinez MD Status: REG CLI Study: Knee 3 Views Date of Exam: 09/21/17 Exam# [id number] Ordering Dr: David Reich STUDY: X-RAY - RIGHT KNEE REASON FOR EXAM: Male, 81 years old. Status post fall. Knee pain. TECHNIQUE: 3 view(s) of the knee. COMPARISON: None. FINDINGS: Normal visualized distal femur. Normal visualized proximal tibia and fibula. Normal proximal tibiofibular articulation. The colon There is mild degenerative arthrosis of the medial femorotibial compartment. There is mild degenerative arthrosis of the lateral femorotibial compartment. There is mild degenerative arthrosis of the patellofemoral articulation. There is no demonstrated joint effusion. There is prepatellar soft tissue swelling. There are vascular calcifications. RAD/Knee 3 Views IMPRESSION: Degenerative arthrosis. Prepatellar soft tissue swelling. No demonstrated acute osseous changes. Electronically Signed: Harpreet Palmer MD at 0:26 EST Tel , Service support , CC: Roc Martinez MD; David SPENCER Medical Physics Teacher: Signed LUMBAR SPINE 2 OR 3 Observed: 09/21/2017 Status: F Source: YOSI VIEWS 9:11 AM [facility] REPOSITORY [facility] Imaging Services [address] [place] [address] Lumbar Spine 2 or 3 Views MR#: [id number] Acct: [id number] Name: ANGEL BRIGGS Rep #: [id number] : 1935 M 81 From: Harpreet Palmer MD PCP: Roc Martinez MD Status: REG CLI Study: Lumbar Spine 2 or 3 Views Date of Exam: 09/21/17 Exam# [id number] Ordering Dr: David Reich STUDY: X-RAY - LUMBAR SPINE REASON FOR EXAM: Male, 81 years old. Low back pain following fall. TECHNIQUE: 3 view(s) of the lumbar spine were obtained. COMPARISON: None FINDINGS: Normal lumbar lordosis. There is mild dextroscoliosis probably positional. There is a normal alignment of the vertebrae. There is mild decrease height of T11 and T12 vertebrae probably old. There is endplate spondylosis at multiple levels. There is narrowing of L3-L4 disc space. There is no demonstrated fracture. There is atherosclerotic calcification of the abdominal aorta without a demonstrated aneurysm. There is partially visualized left hip prosthesis. RAD/Lumbar Spine 2 or 3 Views IMPRESSION: Degenerative changes of the spine, as detailed above. If symptoms persist, CT scan or MRI of the lumbar spine recommended. Electronically Signed: Harpreet Palmer MD at 0:28 EST Tel , Service support , CC: Roc Martinez MD; David SPENCER Medical Physics Teacher: Signed HIP 2-3 VIEWS WITH Observed: 09/21/2017 Status: F Source: MOBILE PELVIS 9:11 AM [facility] REPOSITORY [facility] Imaging [place] [address] Hip 2-3 Views with Pelvis MR#: [id number] Acct: [id number] Name: ANGEL BRIGGS Rep #: [id number] : 1935 M 81 From: Harpreet Palmer MD PCP: Roc Martinez MD Status: REG CLI Study: Hip 2-3 Views with Pelvis Date of Exam: 09/21/17 Exam# [id number] Ordering Dr: David Reich STUDY: X-RAY - PELVIS AND BILATERAL HIPS REASON FOR EXAM: Male, 81 years old. Bilateral hip pain. Status post fall. TECHNIQUE: Radiological exam, hip, bilateral, with pelvis when performed; 2 views COMPARISON: 04/24/2016. FINDINGS: There is a non-specific bowel gas pattern. There are atherosclerotic vascular calcifications of the pelvic arteries. Normal bilateral iliac wings, sacroiliac joints and visualized sacrum. Normal bilateral superior and inferior pubic rami. Normal pubic symphysis. Normal bilateral ischial tuberosities. Normal visualized right femoral head. There is osteoarthritic spur formation of the right acetabular rim. There is moderate articular joint space narrowing of the right hip. There again is total left hip prosthesis in place. RAD/Hip 2-3 Views with Pelvis IMPRESSION: Status post left hip prosthesis. No demonstrated acute fracture. Electronically Signed: Harpreet Palmer MD at 0:31 EST Tel , Service support , CC: Roc Martinez MD; David SPENCER Medical Physics Teacher: Signed INTERNAL MEDICINE Observed: 09/15/2017 Status: F Source: MOBILE OFFICE VISIT 1:45 PM [facility] [address] [facility] [address] [place] [address] OFFICE VISIT Date of Service: 09/15/17 MR#: [id number] Acct: [id number] Name: ANGEL BRIGGS Rep #: [id number] : 1935 Provider: Jack Augustin NP Age/Sex: 81/M Location: [facility] Status: Signed Intake Vital Signs09/15/17 Height 5 ft 8 in Intake Visit Reasons: Follow-up visit Chief Complaint: lower back pain Is patient in pain?: Yes (back pain) Pain scale (1-10): 10 Allergies codeine Allergy (Verified 09/05/17 11:13) Unknown Medications metformin 500 mg tablet 500 mg PO BID #180 tab 09/09/17 [Rx Confirmed 09/09/17] apple cider vinegar 300 mg tablet mg PO 09/15/17 [History Confirmed 09/15/17] aspirin 81 mg tablet,delayed release 81 mg PO QDAY 09/15/17 [History Confirmed 09/15/17] lisinopril 10 mg tablet 10 mg PO QDAY 09/15/17 [History Confirmed 09/15/17] metoprolol succinate ER 25 mg tablet,extended release 24 hr 25 mg PO ONCE tab 09/15/17 [History Confirmed 09/15/17] multivitamin with iron tablet 1 tab PO QDAY 09/15/17 [History Confirmed 09/15/17] tamsulosin 0.4 mg capsule 0.4 mg PO QDAY 09/15/17 [History Confirmed 09/15/17] tiotropium bromide 18 mcg capsule with inhalation device 18 mcg INHALATION QDAY 09/15/17 [History Confirmed 09/15/17] vitamin B complex-vitamin C-folic acid 0.8 mg tablet 1 tab PO QDAY 09/15/17 [History Confirmed 09/15/17] [facility] Medical History Thrombocytopenia (Chronic) Arthritis (Chronic) Hyperlipemia (Chronic) Hypertension (Chronic) BPH (benign prostatic hyperplasia) (Chronic) Surgical History History of left hip replacement (Acute) history of left hand surgery (Acute) Family History Son CVA (cerebral vascular accident) Diabetes Mother Cancer Social History Smoking Status: Former smoker how long ago did patient quit smokin alcohol intake: never substance use type: does not use what type of physical activity do you participate in: none HPI Follow-up visit: Chief Complaint: follow-up visit Details: ANGEL BRIGGS, is a 81 M who presents to the office today for a follow-up of his chronic conditions and a follow-up ER visit. She has a past medical history which is significant for a bout of hypertension, hyperlipidemia, myelodysplastic syndrome, type 2 diabetes mellitus [id number], BPH, and osteoarthritis. Patient to [facility] emergency department on 120 with a complaint of a right knee swelling. He had fallen 3 weeks prior and was diagnosed with bursitis after having a negative x-ray performed. The patient states that the right knee pain has entirely resolved, however the swelling continues. He takes Aleve only occasionally. He states that he has been trying to elevate the extremity, but has not been using any compression. He does note that the ER physician refused to drain the effusion due to his history of diabetes. He states that what is bothering him the most today is his low back pain that he is having. He notes that after his girlfriend was under hospice care, for 4 weeks straight he had to sit in a recliner and that this flared up his low back pain. He states that this is been going on for the past 6-8 weeks and that he recently started seeing a chiropractor who has been giving him adjustments and physical therapy. He states that the chiropractor took x-rays and that it showed some degenerative degenerative changes in his lower back. He is requesting to continue following up with the chiropractor for a couple of weeks until having our office further investigated. Regarding his type 2 diabetes mellitus, the patient states that he is up-to-date on his diabetic eye exam and diabetic foot exam and he sees podiatry for this. 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 He states that he checks his blood sugars infrequently, however postprandial they range in the 140s. He also states that he stopped taking his lisinopril because he was not sure what he was on this for. He states that his blood pressures have been stable at home and range 120s-30s systolic over 60s-70s diastolic. He otherwise has a negative review of systems. ROS Const Constitutional: No fever(s), chills, weakness, change in appetite, sleep problems, fatigue, malaise or frequent falls Eyes Eyes: No blurry vision, change in vision, double vision or discharge ENT ENT: No abnormal hearing, ear pain, ear pressure or dizziness/vertigo Resp Respiratory: No cough, wheezing or shortness of breath Cardio Cardiology: No chest pain at rest, chest pain with exertion, shortness of breath, dyspnea on exertion, lightheadedness, irregular heart rhythm, fast heart rate, palpitations, orthopnea or generalized swelling Gastro GI: No abdominal pain, change in bowel habits, constipation, diarrhea, vomiting or nausea/dyspepsia Musc Musculoskeletal: Positive for joint pain, back pain, limited range of motion (see hpi) and joint swelling; no muscle weakness, tingling or numbness Skin Skin: No change in skin color, wounds, rash or itching Neuro Neurology: No weakness, frequent falls, abnormal hearing, tingling, numbness, unsteady gait/balance, dizziness, loss of vision or memory loss Psych Psychiatric: No change in appetite, No memory loss, No anxiety, No depression, No Thoughts of harming yourself/Others Endo Endocrine: No fatigue, increased thirst/drinking, increased urination, increased hunger or heat intolerance Aller/Imm Allergy/Immunologic: No wheezing, itchy eyes or seasonal allergy symptoms Blade/Lymp Hematologic/Lymphatic: No easy bleeding, easy bruising or enlarged lymph nodes Exam Const General: cooperative (elderly), comfortable, no acute distress Nutritional Appearance: average body habitus, well nourished Orientation: alert, oriented x3 Limitations: mental status not altered [facility] Head: normal to inspection Ears: hearing grossly normal bilaterally Nose: external nose normal Eyes General: appearance normal, both eyes and all related structures Resp Effort AND Inspection: normal respiratory effort, able to speak in complete sentences, normal respiratory pattern, symmetric chest movement, no audible wheezes, no cough Auscultation: Bilateral: Clear to Auscultation Cardio Palpation: normal PMI Rate: regular rate Heart Sounds: S1 normal, S2 normal, normal S1 and S2, no click, no gallops, no murmurs, no rubs GI Inspection: normal to inspection Auscultation: normal bowel sounds, no hyperactive bowel sounds, no hypoactive bowel sounds Palpation: soft, no hepatosplenomegaly Musc Musculoskeletal: Yes joint tenderness (right knee, positive for right knee effusion as well, no signs of infection) and decreased ROM (lumbar); no muscle weakness Thoracic/Lumbar Spine: lumbar spinal tenderness at L1, at L2 and at L3, straight leg raise negative, other (tenderness on B/L lumbar region, dimin rom lumbar flexion and extension) Skin General: no rashes or lesions noted, elasticity normal, turgor normal Lesions: no lesions Rashes: no rashes Neuro General: alert, awake, oriented x3, CN's II-XI intact bilaterally Speech: speech normal Gait: normal gait Motor: muscle tone normal throughout Extrem General: normal to inspection, normal gait, no edema, no pedal edema Psych Appearance: grossly normal Mental Status: mental status grossly normal Affect: normal affect Attitude: cooperative Thought Process: normal Assessment AND Plan 1. Lumbago M54.5 Plan Patient wishes to continue with supportive therapy at this time. He is currently seeing the chiropractor who is doing adjustments and has taken x-rays which demonstrate degenerative disc disease. Requested x-rays for continuity of care. We will continue to monitor in the future. May need PT referral or further evaluation in the future. 2. Effusion, right knee M25.461 Plan Patient does have an evident effusion on the right knee, no signs of systemic infection at this time. He has not tried any supportive therapy. Discussed taking Tylenol for pain relief and wrapping with Maria Eugenia wrap and elevating and using ice. Maria Eugenia wrap applied during today's office visit and patient is neurovascularly intact. Patient will follow up with our office in 2 weeks and if effusion still present, referral will be made to Ortho for aspiration. 3. HTN (hypertension) I10 Plan Hypertension: Controlled on current medications, will not make any adjustments at this time. Will continue with current medication regimen, risk factor reduction, and lifestyle modifications. Discussed dietary changes that should be considered which include reducing the amount of sodium intake. This with patient importance of same back on his lisinopril as this is nephro protective given his history of diabetes. 4. BPH (benign prostatic hyperplasia) N40.0 Plan Controlled on current medication, no symptoms at this time. 5. Thrombocytopenia D69.6 Plan Deferred to [facility]. 6. Type 2 diabetes mellitus E11.9 Plan Diabetes: Stable at this time. The patient's most recent A1c was reviewed and was at goal, patient is due for another A1c check. Will not make any adjustments to their diabetic medication regimen at this time. Discussed with patient lifestyle changes, risk factor reduction, and the benefits of maximizing nutrition and exercise. Patient verbalized understanding. Patient to follow-up in 3 months with repeat A1c will be done prior. Patient is current on their yearly eye exam and is seeing podiatry for their diabetic foot exam. Discussed the importance of his lisinopril for nephro protective properties. Recheck A1c and microalbumin Orders Orders: 7. COPD (chronic obstructive pulmonary disease) J44.9 Plan Controlled on current Spiriva therapy, patient declines having to use her rescue inhaler and denies any symptomatic shortness of breath. Dragon disclaimer Plan Detail Other Orders Orders: Other Medications New: Follow Up 2 Weeks Coding Level of Care Code Off vis,est,level 4 Diagnoses Lumbago M54.5 Effusion, right knee M25.461 HTN (hypertension) I10 BPH (benign prostatic hyperplasia) N40.0 Thrombocytopenia D69.6 Type 2 diabetes mellitus E11.9 COPD (chronic obstructive pulmonary disease) J44.9 09/15/17 1345 <Electronically signed by Jack ROY> Date Jack ROY Cosigner Signature: Date (if applicable) CC: HEMOGLOBIN A1C Collected: 09/15/2017 Status: F Source: YOSI 11:33 AM [facility] REPOSITORY TYPE CODE TESTS RESULT OUT OF RANGE REFERENCE UNITS LAB L501.9985 4.2-6.3 % Normal HGB A1C 5.7 Performed By: #### L501.9985 #### [facility] [address] [place], [address] MICROALB:CREAT Collected: 09/15/2017 Status: F Source: YOSI ARROYO,RANDOM UR 11:33 AM [facility] REPOSITORY TYPE CODE TESTS RESULT OUT OF RANGE REFERENCE UNITS LAB L501.1200 NO RANGE EST. mg/dL Normal UR CREAT 241.00 LAB L502.0500 NO RANGE EST. mg/L Normal 136.0 MICROALBUMIN ,UR LAB L502.0600 <30 mg/g CRE mg/g CRE High 56.4 MALB:CREAT Performed By: #### L502.0250 #### [facility] [address] [place], [address] EMERGENCY DEPARTMENT Observed: 09/05/2017 Status: F Source: YOSI SUMMARY 11:26 AM [facility] REPOSITORY [facility] Medical Records Department [address] [place] [address] Emergency Department Summary 09/05/17 1121 MR#: [id number] Acct: [id number] Name: ANGEL BRIGGS Rep #: [id number] : 1935 81 From: Jeffrey Zuñiga MD PCP: Roc Martinez MD Status: PRE ER - ER Visit Summary Date of Service: 09/05/17 Chief Complaint: I have water on my knee. History of Present Illness: The patient is a 81 M [place] because of swelling right knee. He reports fall 3 weeks ago. He states that x-ray that were negative. He does have history of diabetes. He denies fever, chills night sweats. Denies elevated blood sugar. He does walk with a limp. He states he has been applying ice. The swelling has occurred over the past 24-48 hours. He denies any recent trauma. Physical Examination: Vital signs remarkable for blood pressure 134/61 heart rate of 115. Patient has a slight limp with ambulation. There is swelling over the right patella and findings are consistent with a prepatellar bursitis. There is no erythema, warmth, induration, lymphangitis or inguinal lymphadenopathy. The patella is not ballotable. There is no effusion. There is no laxity with varus valgus stress testing. He has full active range of motion able to extend 180 and flex to 90 . There is no joint line tenderness. Negative modified Marce's test. No laxity with drawer testing. Test Results: None Emergency Department Course and Treatment: Patient was informed he has a bursitis. Treatment Plan: Symptomatic. He was not prescribed NSAIDs because of age and the fact that he has diabetes. Disposition: Discharge to home Impression: Prepatellar traumatic bursitis This note was generated with [employer] dictation software. It may contain incorrect words, spelling, and punctuation that were not noted in review of the chart prior to signing ED Disposition - Plan for ED Patient: Disposition: Home or Assisted Living Chief Complaint: Lower Extremity Injury Instructions: ED Bursitis Referrals: Roc Martinez MD [Primary Care Provider] - 1 Week if not improving What to do if you have Problems For any increased pain, shortness of breath, bleeding, nausea or vomiting, chest pain, or any unexpected problems, contact your Primary Care Provider. Call [facility] ([phone]) or report to the closest Emergency Room. Call 911 if necessary. 09/05/17 1126 <Electronically signed by Jeffrey Zuñiga MD> Date Jeffery Zuñiga MD Cosigner Signature (If Indicated): Date CC: Roc Martinez MD CBC W/DIFF, AUTOMATED Collected: 09/01/2017 Status: F Source: YOSI 1:02 PM [facility] REPOSITORY Order Comment: Reason for Laboratory Test OV TYPE CODE TESTS RESULT OUT OF RANGE REFERENCE UNITS LAB L100.1000 4.4-11.0 K/mm3 Low 4.3 WBC LAB L100.1200 4.6-6.2 M/mm3 Low 3.98 RBC LAB L100.1300 13.0-16.5 g/dl Low 11.6 HGB LAB L100.1400 40-54 % Low 34.6 HCT LAB L100.1500 80-94 fL 86.9 Normal MCV LAB L100.1600 27.0-32.0 pg 29.1 Normal MCH LAB L100.1700 32-36 g/gl 33.5 Normal MCHC LAB L100.1810 11.6-14.6 % High 18.2 RDW CV LAB L100.1820 35.1-43.9 fl High 55.1 RDW SD LAB L100.1900 150-450 K/mm3 Low 63 PLT LAB L100.2000 6.2-12.0 fl Test Normal MPV not performed LAB L100.2100 47-70 % 58.2 Normal NEUT% LAB L100.2200 19-41 % 34.5 Normal LY% LAB L100.2300 0-10 % 5.4 Normal MONO% LAB L100.2400 0-5 % 1.2 Normal EO% LAB L100.2500 0-1 % 0.2 Normal BASO% LAB L100.2550 0.0-0.9 % 0.500 Normal IM GRAN % Result Comment: IG% - Immature Granulocytes (promyelocytes, myelocytes and metamyelocytes) > 1% indicates that a LEFT SHIFT is Present. LAB L100.2620 2.0-7.7 X10 3/uL Absolute Neut Normal 2.5 LAB L100.2720 0.83-4.51 X10 3/ul Absolute Lymph Normal 1.48 LAB L100.5500 ADEQ PLT EST Normal MKD DEC LAB L100.5650 PLT MORPH Normal LARGE LAB L100.7300 ANISO Normal 1+ LAB L100.8400 SCHISTOCYTES Normal RARE Performed By: #### L100.0100 #### [facility] [address] [place], [address] ALLERGIES ALLERGIES DATE TYPE / CODE NAME / CODE REACTION SEVERITY SOURCE 07/29/2018 Drug codeine/R12616 Unknown [facility] Allergy/4160 1550(RXNORM) [facility] [address](SNOMED Repository CT) 09/27/2007 DRUG CODEINE UNKNOWN [facility] INGREDI/[address] [place] [address](SNOMED Repository CT) /[id number] CODEINE [facility] (SNOMED CT) Health System Repository ENCOUNTERS ENCOUNTERS ADMIT/DISCHARGE ACCOUNT NUMBER ADMITTING ENCOUNTER LOCATION SOURCE CLASS 07/30/2018 [id number] Ambulatory BMSBuilding: [place] B[facility] Repository 07/30/2018 [id number] Ambulatory BMSBuilding: [facility].CF.[facility] Repository 07/30/2018/07/30/20 [id number] Ambulatory [address] ding:CLSP Repository 07/29/2018/07/29/20 [id number] Ambulatory BMSBuilding: [facility] 18 BMS.[facility] Repository 07/21/2018/07/21/20 [id number] Ambulatory BMSBuilding: [facility] 18 BMS.[facility] Repository 07/20/2018/07/20/20 [id number] Ambulatory BMSBuilding: [facility] 18 BMS.[facility] Repository 07/19/2018 [id number] Ambulatory [facility] ding:CT Repository 07/05/2018 [id number] Ambulatory [facility] ding:LAB Repository 06/24/2018 [id number] Ambulatory [facility] ding:LAB Repository 06/21/2018/06/21/20 [id number] Ambulatory BMSBuilding: [facility] 18 BMS.[facility] Repository 06/21/2018/06/21/20 [id number] Ambulatory BMSBuilding: [place] 18 BMS.[facility] Repository 06/18/2018/06/18/20 [id number] Ambulatory BMSBuilding: [place] 18 BMS.[facility] Repository 06/17/2018 [id number] Ambulatory BMSBuilding: [place] BMS.CF.[facility] Repository 06/17/2018 [id number] Ambulatory [facility] ding:OMD Repository 06/14/2018/06/14/20 [id number] Ambulatory BMSBuilding: [facility] 18 BMS.[facility] Repository 06/09/2018 [id number] Ambulatory [facility] Repository 06/09/2018/06/09/20 [id number] Ambulatory [address] MEDICAL Repository CENTERBuildi ng:AKLBG 06/09/2018/06/09/20 [id number] Ambulatory [address] Repository 06/09/2018/06/09/20 [id number] Ambulatory [address] Repository 06/08/2018 [id number] Ambulatory [facility] ding:HPRAD Repository 06/08/2018/06/08/20 [id number] Ambulatory BMSBuilding: [facility] 18 BMS.[facility] Repository 06/07/2018/06/07/20 [id number] Ambulatory BMSBuilding: [place] 18 BMS.[facility] Repository 06/03/2018 [id number] Ambulatory [facility] ding:PSN Repository 06/03/2018 [id number] Ambulatory BMSBuilding: [facility] Repository 06/02/2018 [id number] Ambulatory [facility] ding:PSN Repository 06/02/2018 [id number] Ambulatory BMSBuilding: [facility] Repository 06/01/2018/06/01/20 [id number] Ambulatory BMSBuilding: [facility] 18 BMS.[facility] Repository 05/31/2018/05/31/20 [id number] Ambulatory BMSBuilding: [facility] 18 BMS.[facility] Repository 05/26/2018/05/29/20 [id number] Mic Khan Inpatient [facility] ding:PCURoom Repository : MLP423Ynm: 1 05/26/2018 [id number] Mic Khan Ambulatory BMSBuilding: [place] BMS.Count includes the [facility] Repository 05/26/2018 [id number] Mic Khan Ambulatory BMSBuilding: [place] [facility]MS.CF.[facility] Repository 05/26/2018 [id number] Mic Khan Ambulatory BMSBuilding: [place] BMS.CF.[facility] Repository 05/26/2018 [id number] Mic Khan Ambulatory BMSBuilding: [place] BMS.Count includes the [facility] Repository 05/26/2018 [id number] Mic Khan Ambulatory BMSBuilding: [place] BMS.CF.[facility] Repository 05/26/2018 [id number] Mic Khan Ambulatory BMSBuilding: [place] BMS.CF.[facility] Repository 05/26/2018 [id number] Mic Khan Ambulatory BMSBuilding: [place] BMS.Count includes the [facility] Repository 05/26/2018 [id number] Mic Khan Ambulatory BMSBuilding: [place] BMS.CF.[facility] Repository 05/26/2018 [id number] Mic Khan Ambulatory BMSBuilding: [place] BMS.[facility] Hospital Repository 05/26/2018/05/29/20 [id number] Ambulatory BMSBuilding: [facility] Repository 05/18/2018 [id number] [facility] ding:PSN Repository 05/17/2018 [id number] [facility] ding:LAB Repository 05/17/2018/05/17/20 [id number] Ambulatory BMSBuilding: [place] 18 BMS.[facility] Repository 05/07/2018/05/07/20 [id number] Ambulatory BMSBuilding: [place] 18 BMS.[facility] Repository 05/04/2018 [id number] [facility] ding:CT Repository 04/29/2018 [id number] [facility] ding:MTLAB Repository 04/28/2018 [id number] [facility] ding:MTLAB Repository 04/28/2018/04/28/20 [id number] Ambulatory BMSBuilding: [place] 18 BMS.[facility] Repository 03/25/2018 [id number] [facility] ding:MRI Repository 03/17/2018/03/17/20 [id number] Ambulatory BMSBuilding: [place] 18 BMS.[facility] Repository 03/17/2018 [id number] Ambulatory BMSBuilding: [place] BMS.[facility] Repository 02/04/2018 [id number] [facility] ding:LAB Repository 02/01/2018/02/02/20 [id number] Ambulatory BMSBuilding: [place] 18 BMS.[facility] Repository 01/27/2018/01/28/20 [id number] [place]ulatory [place] [address] [place] [address] ding:PT Repository 01/07/2018 [id number] [facility] ding:CVS Repository 01/07/2018 [id number] Ambulatory BMSBuilding: [facility] Repository 12/31/2017/01/01/20 [id number] Ambulatory BMSBuilding: [place] 18 BMS.[facility] Repository 12/25/2017/12/26/19 [id number] Ambulatory BMSBuilding: [place] 18 BMS.[facility] Repository 12/21/2017 [id number] Ambulatory BMSBuilding: [place] BMS.[facility] Repository 12/01/2017 [id number] Ambulatory BMSBuilding: [place] BMS.[facility] Repository 12/01/2017/12/02/19 [id number] Ambulatory BMSBuilding: [place] 18 BMS.[facility] Repository 11/19/2017/11/20/19 [id number] Ambulatory BMSBuilding: [place] 18 BMS.[facility] Repository 11/13/2017 [id number] [facility]ulatory [facility] ding:LAB.FUT Repository URE 11/11/2017 [id number] Ambulatory BMSBuilding: [place] BMS.[facility] Repository 10/21/2017/10/22/19 [id number] Ambulatory BMSBuilding: [place] 18 BMS.[facility] Repository 10/09/2017/10/09/19 [id number] Ambulatory BMSBuilding: [place] 18 BMS.[facility] Repository 09/25/2017/09/25/19 [id number] Ambulatory BMSBuilding: [place] 18 BMS.[facility] Repository 09/21/2017 [id number] Ambulatory [facility] ding:HPRAD Repository 09/21/2017/09/21/19 [id number] Ambulatory BMSBuilding: [place] 18 BMS.[facility] Repository 09/15/2017 [id number] [facility] ding:MTLAB Repository 09/15/2017/09/15/19 [id number] Ambulatory BMSBuilding: [place] 18 BMS.[facility] Repository 09/05/2017/09/05/19 [id number] Emergency [place] 18 [facility] ding:ED Repository 09/01/2017 [id number] Ambulatory BMSBuilding: [place] BMS.[facility] Repository PAYERS PAYERS ENCOUNTER GUARANTOR PAYER SUBSCRIBER SOURCE 07/30/2018 ANGEL Gaxiola Primary ANGEL Deluca [id number] Insurance:MEDICARE BRENNEMANDOB: Community ARGELIA RDWOOSTER, PART A [facility] [id number] Memorial Hospital [address]Imi: Number: Repository [id number] (HP) Date:2018-07-29 07/30/2018 Secondary ANGEL Deluca Insurance:CIGNAPolicy BRENNEMANDOB: [facility]ly [facility] Number: [id number] [place] [address] [id number] Repository Date:2645-63-54[address]Znixkvejeyr, [place] [address]JW: 07/30/2018 Tertiary NOT GIVENUNK [place] Insurance:SELF PAY [facility] Number: Effective Repository Date:2018-07-30 07/30/2018 ANGEL Minor Primary ANGEL Deluca [id number] Insurance:MEDICARE BRENNEMANDOB: Community ARGELIA RDWOOSTER, PART A [facility] [id number] [place] [address]Cqy: Number: Repository [id number] (HP) Date:2018-07-29 07/30/2018 Secondary ANGEL Deluca Insurance:CIGNAPolicy BRENNEMANDOB: Community Number: [id number] [place] [address] [id number] Repository Date:5585-32-55Ff [address]LzavrekhrwrSANDY [address]JN: 07/30/2018 Tertiary NOT GIVENUNK [place] Insurance:SELF PAY [facility] Number: Effective Repository Date:2018-07-30 07/30/2018 ANGEL Gaxiola Primary ANGEL Deluca [id number] Insurance:MEDICARE BRENNEMANDOB: Community ARGELIA RDWOOSTER, PART A [facility] [id number] Memorial Hospital [address]Vxz: Number: Repository [id number] (HP) Date:2018-07-29 07/30/2018 Secondary ANGEL Deluca Insurance:CIGNAPolicy BRENNEMANDOB: Community Number: [id number] Hospital [id number] Repository Date:2661-06-22D[address]Tgdmhvjcwki, [place] [address]OG: 07/30/2018 Tertiary NOT GIVENUNK [place] Insurance:SELF PAY [facility] Number: Effective Repository Date:2018-07-29 07/29/2018 ANGEL Gaxiola Primary ANGEL Deluca [id number] Insurance:MEDICARE BRENNEMANDOB: Community ARGELIA RDWOOSTER, PART A [facility] [id number] Memorial Hospital [address]Nwg: Number: Repository [id number] (HP) Date:2018-06-21 07/29/2018 Secondary ANGEL Deluca Insurance:CIGNAPolicy BRENNEMANDOB: Community Number: [id number] Hospital [id number] Repository Date:6518-98-40[address]Kbrrizyiaes, [place] [address]VJ: 07/29/2018 Tertiary NOT GIVENUNK [place] Insurance:SELF PAY [facility] Number: Effective Repository Date:2018-07-27 07/21/2018 ANGEL Gaxiola Primary ANGEL Deluca [id number] Insurance:MEDICARE BRENNEMANDOB: Community ARGELIA RDWOOSTER, PART A [facility] [id number] Memorial Hospital [address]Pne: Number: Repository [id number] (HP) Date:2018-06-21 07/21/2018 Secondary ANGEL Deluca Insurance:CIGNAPolicy BRENNEMANDOB: Community Number: [id number] Hospital [id number] Repository Date:3502-50-89Fs [address]Afowwnnsbuq, [place] [address]FO: 07/21/2018 Tertiary NOT GIVENUNK [place] Insurance:SELF PAY [facility] Number: Effective Repository Date:2018-07-19 07/20/2018 ANGEL Gaxiola Primary ANGEL Deluca [id number] Insurance:MEDICARE BRENNEMANDOB: Community ARGELIA RDWOOSTER, PART A [facility] [id number] Memorial Hospital [address]Hhu: Number: Repository [id number] (HP) Date:2018-06-18 07/20/2018 Secondary ANGEL Deluca Insurance:CIGNAPolicy BRENNEMANDOB: Community Number: [id number] Hospital [id number] Repository Date:6347-10-64Pd [place] [address]Qskvrwljqul, [place] [address]KN: 07/20/2018 Tertiary NOT GIVENUNK [place] Insurance:SELF PAY [facility] Number: Effective Repository Date:2018-07-13 07/19/2018 ANGEL Deluca [id number] Insurance:MEDICARE BRENNEMANDOB: Community ARGELIA RDWOOSTER, PART A [facility] [id number] Memorial Hospital [address]Cjl: Number: Repository [id number] (HP) Date:2018-06-18 07/19/2018 Secondary ANGEL Deluca Insurance:CIGNAPolicy BRENNEMANDOB: Community Number: [id number] Hospital [id number] Repository Date:2523-23-68El [place] [address]Uiuymaqdjkk, [place] [address]JO: 07/19/2018 Tertiary NOT GIVENUNK [place] Insurance:SELF PAY [facility] Number: Effective Repository Date:2018-06-18 07/05/2018 ANGEL Deluca [id number] Insurance:MEDICARE BRENNEMANDOB: Community ARGELIA RDWOOSTER, PART A [facility] [id number] Memorial Hospital [address]Fav: Number: Repository [id number] (HP) Date:2018-07-05 07/05/2018 Secondary ANGEL Deluca Insurance:CIGNAPolicy BRENNEMANDOB: Community Number: [id number] Hospital [id number] Repository Date:9341-91-88Fy [address]Vozqaoylpka, [place] [address]RS: 07/05/2018 Tertiary NOT GIVENUNK [place] Insurance:SELF PAY [facility] Number: Effective Repository Date:2018-07-05 06/24/2018 ANGEL Gaxiola Primary ANGEL Deluca [id number] Insurance:MEDICARE BRENNEMANDOB: Community ARGELIA RDWOOSTER, PART A [facility] [id number] Memorial Hospital [address]Fkz: Number: Repository [id number] (HP) Date:2018-06-24 06/24/2018 Secondary ANGEL Walloster Insurance:CIGNAPolicy BRENNEMANDOB: Community Number: [id number] Hospital [id number] Repository Date:9555-89-15Yx [address]Gmiwqxgcroj, [place] [address]LY: 06/24/2018 Tertiary NOT GIVENUNK [place] Insurance:SELF PAY [facility] Number: Effective Repository Date:2018-06-24 06/21/2018 ANGEL Gaxiola Primary ANGEL Deluca [id number] Insurance:MEDICARE BRENNEMANDOB: Community ARGELIA RDWOOSTER, PART A [facility] [id number] Memorial Hospital [address]Zeh: Number: Repository [id number] (HP) Date:2018-06-18 06/21/2018 Secondary ANGEL Deluca Insurance:CIGNAPolicy BRENNEMANDOB: Community Number: [id number] Hospital [id number] Repository Date:2618-85-89V[address]Ljvzxbjvcjq, [place] [address]XQ: 06/21/2018 Tertiary NOT GIVENUNK [place] Insurance:SELF PAY [facility] Number: Effective Repository Date:2018-06-21 06/21/2018 ANGEL Gaxiola Primary ANGEL Deluca [id number] Insurance:MEDICARE BRENNEMANDOB: Community ARGELIA RDWOOSTER, PART A [facility] [id number] Memorial Hospital [address]Oty: Number: Repository [id number] (HP) Date:2018-05-17 06/21/2018 Secondary ANGEL Deluca Insurance:CIGNAPolicy BRENNEMANDOB: Community Number: [id number] [place] [address] [id number] Repository Date:8004-32-39Ey [place] [address]Mrdvsjxwmkz, [place] [address]QT: 06/21/2018 Tertiary NOT GIVENUNK [place] Insurance:SELF PAY [facility] Number: Effective Repository Date:2018-06-21 06/18/2018 ANGEL Gaxiola Primary ANGEL Walloster [id number] Insurance:MEDICARE BRENNEMANDOB: Community ARGELIA RDWOOSTER, PART A [facility] [id number] [address]Rxh: Number: Repository [id number] (HP) Date:2018-06-14 06/18/2018 Secondary ANGEL Deluca Insurance:CIGNAPolicy BRENNEMANDOB: Community Number: [id number] Hospital [id number] Repository Date:6946-43-32Vh [place] [address]Aziinochjmr, [place] [address]FS: 06/18/2018 Tertiary NOT GIVENUNK [place] Insurance:SELF PAY [facility] Number: Effective Repository Date:2018-06-17 06/17/2018 ANGEL Gaxiola Primary ANGEL Deluca [id number] Insurance:MEDICARE BRENNEMANDOB: Community ARGELIA RDWOOSTER, PART A [facility] [id number] Memorial Hospital [address]Tob: Number: Repository [id number] (HP) Date:2001-09-17 06/17/2018 Secondary ANGEL Deluca Insurance:CIGNAPolicy BRENNEMANDOB: Community Number: [id number] [place] [address] [id number] Repository Date:0840-06-53Eu [address]Sswwhbmeoiz, [place] [address]XY: 06/17/2018 Tertiary NOT GIVENUNK [place] Insurance:SELF PAY [facility] Number: Effective Repository Date:2018-06-17 06/17/2018 ANGEL Deluca [id number] Insurance:MEDICARE BRENNEMANDOB: Community ARGELIA RDWOOSTER, PART A [facility] [id number] Memorial Hospital [address]Qvd: Number: Repository [id number] (HP) Date:2001-09-17 06/17/2018 Secondary ANGEL Deluca Insurance:CIGNAPolicy BRENNEMANDOB: Community Number: [id number] Hospital [id number] Repository Date:8975-59-87Yk [address]Eztjaecyrtp, [place] [address]LZ: 06/17/2018 Tertiary NOT GIVENUNK [place] Insurance:SELF PAY [facility] Number: Effective Repository Date:2016-11-03 06/14/2018 ANGEL Deluca [id number] Insurance:MEDICARE BRENNEMANDOB: Community ARGELIA RDWOOSTER, PART A [facility] [id number] Memorial Hospital [address]Ozj: Number: Repository [id number] (HP) Date:2018-06-07 06/14/2018 Secondary ANGEL Deluca Insurance:CIGNAPolicy BRENNEMANDOB: Community Number: [id number] Hospital [id number] Repository Date:1706-50-16Ux [address]Orefgzpigsx, [place] [address]JK: 06/14/2018 Tertiary NOT GIVENUNK [place] Insurance:SELF PAY [facility] Number: Effective Repository Date:2018-06-07 06/09/2018 ANGEL Gaxiola Primary ANGEL Gaxiola [facility] BRENNEMANDOB: Insurance:MEDICARE [facility] [id number] AND BPolicy Number: [id number] Repository ARGELIA RDWOOSTER, [id number] [place] [address]Umx: Date: () 06/09/2018 Secondary ANGEL [facility]tt [facility] Insurance:CIGNA BRENNEMANDOB: Health System [facility] Number: [id number] Repository [id number] Date: 06/08/2018 ANGEL Gaxiola Primary ANGEL Deluca [id number] Insurance:MEDICARE BRENNEMANDOB: Community ARGELIA RDWOOSTER, PART A [facility] [id number] Memorial Hospital [address]Tza: Number: Repository [id number] () Date:2018-06-08 06/08/2018 Secondary ANGEL Deluca Insurance:CIGNAPolicy BRENNEMANDOB: Community Number: [id number] Hospital [id number] Repository Date:4731-57-14Vl [address]Riwznwrabiq, [place] [address]CJ: 06/08/2018 Tertiary NOT GIVENUNK [place] Insurance:SELF PAY [facility] Number: Effective Repository Date:2018-06-08 06/08/2018 ANGEL Gaxiola Jerry Deluca [id number] Insurance:MEDICARE BRENNEMANDOB: Community ARGELIA RDWOOSTER, PART A [facility] [id number] Memorial Hospital [address]Xap: Number: Repository [id number] () Date:2018-03-18 06/08/2018 Secondary ANGEL Deluca Insurance:CIGNAPolicy BRENNEMANDOB: Community Number: [id number] Hospital [id number] Repository Date:1629-51-98Vr [address]Rnoofuynxbj, [place] [address]HG: 06/08/2018 Tertiary NOT GIVENUNK [place] Insurance:SELF PAY [facility] Number: Effective Repository Date:2018-06-08 06/07/2018 ANGEL Minor Deluca [id number] Insurance:MEDICARE BRENNEMANDOB: Community ARGELIA RDWOOSTER, PART A [facility] [id number] Memorial Hospital [address]Zwu: Number: Repository [id number] (HP) Date:2018-06-07 06/07/2018 Secondary ANGEL Deluca Insurance:CIGNAPolicy BRENNEMANDOB: Community Number: [id number] Hospital [id number] Repository Date:6793-16-76Di [address]Phpbvpgxrii, [place] [address]LA: 06/07/2018 Tertiary NOT GIVENUNK [place] Insurance:SELF PAY [facility] Number: Effective Repository Date:2018-06-07 06/03/2018 ANGEL Gaxiola Primary ANGEL Deluca [id number] Insurance:MEDICARE BRENNEMANDOB: Community ARGELIA RDWOOSTER, PART A [facility] [id number] Memorial Hospital [address]Qto: Number: Repository [id number] (HP) Date:2018-06-01 06/03/2018 Secondary ANGEL Deluca Insurance:CIGNAPolicy BRENNEMANDOB: Community Number: [id number] Hospital [id number] Repository Date:2790-15-76Ki [address]Oodnyljvthr, [place] [address]GO: 06/03/2018 Tertiary NOT GIVENUNK [place] Insurance:SELF PAY [facility] Number: Effective Repository Date:2018-06-01 06/03/2018 ANGEL Gaxiola Primary ANGEL Deluca [id number] Insurance:MEDICARE BRENNEMANDOB: Community ARGELIA RDWOOSTER, PART A [facility] [id number] Memorial Hospital [address]Npd: Number: Repository [id number] (HP) Date:2018-06-01 06/03/2018 Secondary ANGEL Deluca Insurance:CIGNAPolicy BRENNEMANDOB: Community Number: [id number] Hospital [id number] Repository Date:4125-70-25Qh [address]Sfgvyumazkb, [place] [address]KN: 06/03/2018 Tertiary NOT GIVENUNK [place] Insurance:SELF PAY [facility] Number: Effective Repository Date:2018-06-03 06/02/2018 ANGEL Gaxiola Primary ANGEL Deluca [id number] Insurance:MEDICARE BRENNEMANDOB: Community ARGELIA RDWOOSTER, PART A [facility] [id number] Memorial Hospital [address]Fvb: Number: Repository [id number] (HP) Date:2018-06-01 06/02/2018 Secondary ANGEL Deluca Insurance:CIGNAPolicy BRENNEMANDOB: Community Number: [id number] Hospital [id number] Repository Date:5519-62-57Bj [place] [address]Zzcviazavab, [place] [address]TF: 06/02/2018 Tertiary NOT GIVENUNK [place] Insurance:SELF PAY [facility] Number: Effective Repository Date:2018-06-01 06/02/2018 ANGEL Gaxiola Primary ANGEL Deluca [id number] Insurance:MEDICARE BRENNEMANDOB: Community ARGELIA RDWOOSTER, PART A [facility] [id number] Memorial Hospital [address]Yod: Number: Repository [id number] (HP) Date:2018-06-01 06/02/2018 Secondary ANGEL Deluca Insurance:CIGNAPolicy BRENNEMANDOB: Community Number: [id number] Hospital [id number] Repository Date:4442-10-97Im [place] [address]Bggqlzzexji, [place] [address]BU: 06/02/2018 Tertiary NOT GIVENUNK [place] Insurance:SELF PAY [facility] Number: Effective Repository Date:2018-06-02 06/01/2018 ANGEL Gaxiola Primary ANGEL Deluca [id number] Insurance:MEDICARE BRENNEMANDOB: Community ARGELIA RDWOOSTER, PART A [facility] [id number] Memorial Hospital [address]Cbo: Number: Repository [id number] (HP) Date:2018-04-28 06/01/2018 Secondary ANGEL Deluca Insurance:CIGNAPolicy BRENNEMANDOB: Community Number: [id number] Hospital [id number] Repository Date:0350-08-27Vk [address]Fgkmxroheib, [place] [address]JF: 06/01/2018 Tertiary NOT GIVENUNK [place] Insurance:SELF PAY [facility] Number: Effective Repository Date:2018-05-31 05/31/2018 ANGEL Gaxiola Primary ANGEL Deluca [id number] Insurance:MEDICARE BRENNEMANDOB: Community ARGELIA RDWOOSTER, PART A [facility] [id number] Memorial Hospital [address]Pac: Number: Repository [id number] () Date:2018-05-31 05/31/2018 Secondary ANGEL Deluca Insurance:CIGNAPolicy BRENNEMANDOB: Community Number: [id number] Hospital [id number] Repository Date:1137-01-67Wy [address]Yrgxrxdrtab, [place] [address]ZD: 05/31/2018 Tertiary NOT GIVENUNK [place] Insurance:SELF PAY [facility] Number: Effective Repository Date:2018-05-31 05/26/2018 ANGEL Gaxiola Primary ANGEL Deluca [id number] Insurance:MEDICARE BRENNEMANDOB: Community ARGELIA RDWOOSTER, PART A [facility] [id number] Memorial Hospital [address]Igc: Number: Repository [id number] () Date:2018-05-26 05/26/2018 Secondary ANGEL Deluca Insurance:CIGNAPolicy BRENNEMANDOB: Community Number: [id number] Hospital [id number] Repository Date:0171-05-10Ve [address]Evhbpmcxiso, [place] [address]ED: 05/26/2018 Tertiary NOT GIVENUNK [place] Insurance:SELF PAY [facility] Number: Effective Repository Date:2018-05-26 05/26/2018 ANGEL Gaxiola Primary ANGEL Deluca [id number] Insurance:MEDICARE BRENNEMANDOB: Community ARGELIA RDWOOSTER, PART A [facility] [id number] Memorial Hospital [address]Pvh: Number: Repository [id number] (HP) Date:2018-05-26 05/26/2018 Secondary ANGEL Deluca Insurance:CIGNAPolicy BRENNEMANDOB: Community Number: [id number] Hospital [id number] Repository Date:7131-99-70Pb [address]Gesraboyjes, [place] [address]CY: 05/26/2018 Tertiary NOT GIVENUNK [place] Insurance:SELF PAY [facility] Number: Effective Repository Date:2018-05-26 05/26/2018 ANGEL Gaxiola Primary ANGEL Deluca [id number] Insurance:MEDICARE BRENNEMANDOB: Community ARGELIA RDWOOSTER, PART A [facility] [id number] Memorial Hospital [address]Typ: Number: Repository [id number] (HP) Date:2018-05-26 05/26/2018 Secondary ANGEL Deluca Insurance:CIGNAPolicy BRENNEMANDOB: Community Number: [id number] Hospital [id number] Repository Date:7251-25-13Nq [address]Mpxykalmonl, [place] [address]VK: 05/26/2018 Tertiary NOT GIVENUNK [place] Insurance:SELF PAY [facility] Number: Effective Repository Date:2018-05-26 05/26/2018 ANGEL Gaxiola Primary ANGEL Deluca [id number] Insurance:MEDICARE BRENNEMANDOB: Community ARGELIA RDWOOSTER, PART A [facility] [id number] Memorial Hospital [address]Vzh: Number: Repository [id number] (HP) Date:2018-05-26 05/26/2018 Secondary ANGEL Deluca Insurance:CIGNAPolicy BRENNEMANDOB: Community Number: [id number] Hospital [id number] Repository Date:1406-61-50Ns [place] [address]Ixnhvrcqggz, [place] [address]FQ: 05/26/2018 Tertiary NOT GIVENUNK [place] Insurance:SELF PAY [facility] Number: Effective Repository Date:2018-05-26 05/26/2018 ANGEL Gaxiola Primary ANGEL Deluca [id number] Insurance:MEDICARE BRENNEMANDOB: Community ARGELIA RDWOOSTER, PART A [facility] [id number] Memorial Hospital [address]Vio: Number: Repository [id number] (HP) Date:2018-05-26 05/26/2018 Secondary ANGEL Deluca Insurance:CIGNAPolicy BRENNEMANDOB: Community Number: [id number] Hospital [id number] Repository Date:8757-14-99La [address]Pevunhfpvee, [place] [address]FN: 05/26/2018 Tertiary NOT GIVENUNK [place] Insurance:SELF PAY [facility] Number: Effective Repository Date:2018-05-26 05/26/2018 ANGEL Deluca [id number] Insurance:MEDICARE BRENNEMANDOB: Community ARGELIA RDWOOSTER, PART A [facility] [id number] Memorial Hospital [address]Otq: Number: Repository [id number] (HP) Date:2018-05-26 05/26/2018 Secondary ANGEL Deluca Insurance:CIGNAPolicy BRENNEMANDOB: Community Number: [id number] Hospital [id number] Repository Date:2882-02-24Tq [address]Kxlnbwvbkij, [place] [address]FR: 05/26/2018 Tertiary NOT GIVENUNK [place] Insurance:SELF PAY [facility] Number: Effective Repository Date:2018-05-26 05/26/2018 ANGEL Gaxiola Primary ANGEL Deluca [id number] Insurance:MEDICARE BRENNEMANDOB: Community ARGELIA RDWOOSTER, PART A [facility] [id number] Memorial Hospital [address]Hpy: Number: Repository [id number] (HP) Date:2018-05-26 05/26/2018 Secondary ANGEL Deluca Insurance:CIGNAPolicy BRENNEMANDOB: Community Number: [id number] Hospital [id number] Repository Date:4743-89-40Ab [address]Vkxdiyndarg, [place] [address]AI: 05/26/2018 Tertiary NOT GIVENUNK [place] Insurance:SELF PAY [facility] Number: Effective Repository Date:2018-05-26 05/26/2018 ANGEL Gaxiola Primary ANGEL Deluca [id number] Insurance:MEDICARE BRENNEMANDOB: Community ARGELIA RDWOOSTER, PART A [facility] [id number] Memorial Hospital [address]Lac: Number: Repository [id number] () Date:2018-05-26 05/26/2018 Secondary ANGEL Deluca Insurance:CIGNAPolicy [place]: Community Number: [id number] [id number] Repository Date:7447-41-27[address]Urtrfzlnpks, [place] [address]HX: 05/26/2018 Tertiary NOT GIVENUNK Collins Insurance:SELF PAY [facility] Number: Effective Repository Date:2018-05-26 05/26/2018 ANGEL Gaxiola Primary ANGEL Deluca [id number] Insurance:MEDICARE [place]: Community ARGELIA RDWOOSTER, PART A [facility] [id number] Memorial Hospital [address]Ryx: Number: Repository [id number] () Date:2018-05-26 05/26/2018 Secondary ANGEL Deluca Insurance:CIGNAPolicy [place]: Community Number: [id number] Hospital [id number] Repository Date:0660-77-89Zl [address]Rigvwktwobb, [place] [address]JZ: 05/26/2018 Tertiary NOT GIVENUNK Yosi Insurance:SELF PAY [facility] Number: Effective Repository Date:2018-05-26 05/26/2018 ANGEL Gaxiola Primary ANGEL Deluca [id number] Insurance:MEDICARE [place]: Community ARGELIA RDWOOSTER, PART A [facility] [id number] Memorial Hospital [address]Bnb: Number: Repository [id number] (HP) Date:2018-05-26 05/26/2018 Secondary ANGEL Deluca Insurance:CIGNAPolicy [place]: Community Number: [id number] Hospital [id number] Repository Date:4242-95-38[address]Dseqqgradbt, [place] [address]FQ: 05/26/2018 Tertiary NOT GIVENUNK Yosi Insurance:SELF PAY [facility] Number: Effective Repository Date:2018-05-26 05/26/2018 ANGEL Gaxiola Primary ANGEL Deluca [id number] Insurance:MEDICARE [place]: Community ARGELIA RDWOOSTER, PART A [facility] [id number] Memorial Hospital [address]Cwx: Number: Repository [id number] (HP) Date:2018-05-26 05/26/2018 Secondary ANGEL Deluca Insurance:CIGNAPolicy [place]: Community Number: [id number] Hospital [id number] Repository Date:1881-05-49[address]Rwhzkurzfly, [place] [address]PE: 05/26/2018 Tertiary NOT GIVENUNK Yosi Insurance:SELF PAY [facility] Number: Effective Repository Date:2018-05-26 05/18/2018 ANGEL Gaxiola Primary ANGEL Deluca [id number] Insurance:MEDICARE [place]: Community ARGELAI RDWOOSTER, PART A [facility] [id number] Memorial Hospital [address]Pnq: Number: Repository [id number] (HP) Date:2018-04-28 05/18/2018 Secondary ANGEL Deluca Insurance:CIGNAPolicy [place]: Community Number: [id number] Hospital [id number] Repository Date:9153-50-20Xz [address] [address]Llvthvmpgbl, [place] [address]ZM: 05/18/2018 Tertiary NOT GIVENUNK [place]osi Insurance:SELF PAY [facility] Number: Effective Repository Date:2018-04-28 05/17/2018 ANGEL Gaxiola Primary ANGEL Deluca [id number] Insurance:MEDICARE [place]: Community ARGELIA RDWOOSTER, PART A [facility] [id number] Memorial Hospital [address]Onx: Number: Repository [id number] (HP) Date:2018-05-17 05/17/2018 Secondary ANGEL Deluca Insurance:CIGNAPolicy [place]: Community Number: [id number] Hospital [id number] Repository Date:9815-49-88Mc [address] [address]CkyxcipbyjaSMITHFIELD, [place] [address]BX: 05/17/2018 Tertiary NOT GIVENUNK Yosi Insurance:SELF PAY [facility] Number: Effective Repository Date:2018-05-17 05/17/2018 ANGEL Gaxiola Primary ANGEL Deluca [id number] Insurance:MEDICARE [place]: Community ARGELIA RDWOOSTER, PART A [facility] [id number] Memorial Hospital [address]Cxs: Number: Repository [id number] (HP) Date:2018-02-01 05/17/2018 Secondary ANGEL Deluca Insurance:CIGNAPolicy [place]: Community Number: [id number] Hospital [id number] Repository Date:9613-10-01Yp [address] [place] [address]Nttfinhtwbv, [place] [address]DI: 05/17/2018 Tertiary NOT GIVENUNK Collins Insurance:SELF PAY [facility] Number: Effective Repository Date:2018-05-17 05/07/2018 ANGEL Gaxiola Primary ANGEL Deluca [id number] Insurance:MEDICARE [place]: Community ARGELIA RDWOOSTER, PART A [facility] [id number] Memorial Hospital [address]Fdz: Number: Repository [id number] (HP) Date:2018-05-07 05/07/2018 Secondary ANGEL Deluca Insurance:CIGNAPolicy [place]: Community Number: [id number] Hospital [id number] Repository Date:5343-20-58Bm [address]Axrjoayzbwf, [place] [address]BL: 05/07/2018 Tertiary NOT GIVENUNK Collins Insurance:SELF PAY [facility] Number: Effective Repository Date:2018-05-07 05/04/2018 ANGEL Gaxiola Primary ANGEL Deluca [id number] Insurance:MEDICARE [place]: Community ARGELIA RDWOOSTER, PART A [facility] [id number] Memorial Hospital [address]Plr: Number: Repository [id number] (HP) Date:2018-04-28 05/04/2018 Secondary ANGEL Deluca Insurance:CIGNAPolicy [place]: Community Number: [id number] [place] [address] [id number] Repository Date:1258-90-48Mz [address]Kscnfyzkwsh, [place] [address]YR: 05/04/2018 Tertiary NOT GIVENUNK Yosi Insurance:SELF PAY [facility] Hospital Number: Effective Repository Date:2018-04-28 04/29/2018 ANGEL Gaxiola Primary ANGEL Deluca [id number] Insurance:MEDICARE [place]: Community ARGELIA RDWOOSTER, PART A [facility] [id number] Memorial Hospital [address]Fvo: Number: Repository [id number] (HP) Date:2018-04-29 04/29/2018 Secondary ANGEL Deluca Insurance:CIGNAPolicy [place]: Community Number: [id number] Hospital [id number] Repository Date:1989-56-84Ul [address]Nmbbynlyfpa, [place] [address]VZ: 04/29/2018 Tertiary NOT GIVENUNK Collins Insurance:SELF PAY [facility] Number: Effective Repository Date:2018-04-29 04/28/2018 ANGEL Deluca [id number] Insurance:MEDICARE [place]: Community ARGELIA RDWOOSTER, PART A [facility] [id number] Memorial Hospital [address]Sdm: Number: Repository [id number] (HP) Date:2018-04-28 04/28/2018 Secondary ANGEL Deluca Insurance:CIGNAPolicy [place]: Community Number: [id number] Hospital [id number] Repository Date:5361-80-75Lz [address]Qbnbkfiumnc, [place] [address]MJ: 04/28/2018 Tertiary NOT GIVENUNK [place]osi Insurance:SELF PAY [facility] Number: Effective Repository Date:2018-04-28 04/28/2018 ANGEL Deluca [id number] Insurance:MEDICARE [place]: Community ARGELIA RDWOOSTER, PART A [facility] [id number] Memorial Hospital [address]Ami: Number: Repository [id number] (HP) Date:2018-04-27 04/28/2018 Secondary ANGEL Deluca Insurance:CIGNAPolicy [place]: Community Number: [id number] Hospital [id number] Repository Date:7711-02-00Bi [address] [address]Lzulbbmlrel, [place] [address]NJ: 04/28/2018 Tertiary NOT GIVENUNK Collins Insurance:SELF PAY [facility] Number: Effective Repository Date:2018-04-28 03/25/2018 ANGEL Deluca [id number] Insurance:MEDICARE [place]: Community ARGELIA RDWOOSTER, PART A [facility] [id number] Memorial Hospital [address]Cge: Number: Repository [id number] (HP) Date:2018-03-17 03/25/2018 Secondary ANGEL Deluca Insurance:CIGNAPolicy [place]: Community Number: [id number] Hospital [id number] Repository Date:8811-61-60[address]Vqngvpbtfve, [place] [address]IZ: 03/25/2018 Tertiary NOT GIVENUNK [place] Insurance:SELF PAY [facility] Number: Effective Repository Date:2018-03-17 03/17/2018 ANGEL Gaxiola Primary ANGEL Deluca [id number] Insurance:MEDICARE [place]: Community ARGELIA RDWOOSTER, PART A [facility] [id number] Memorial Hospital [address]Zex: Number: Repository [id number] () Date:2018-03-15 03/17/2018 Secondary ANGEL Deluca Insurance:CIGNAPolicy [place]: Community Number: [id number] Hospital [id number] Repository Date:2482-95-68T[address]Pwdjczafbbw, [place] [address]II: 03/17/2018 Tertiary NOT GIVENUNK [place] Insurance:SELF PAY [facility] Number: Effective Repository Date:2018-03-17 03/17/2018 ANGEL Deluca [id number] Insurance:MEDICARE [place]: Community ARGELIA RDWOOSTER, PART A [facility] [id number] Memorial Hospital [address]Mhy: Number: Repository [id number] () Date:2001-09-17 03/17/2018 Secondary ANGEL Deluca Insurance:CIGNAPolicy [place]: Community Number: [id number] Hospital [id number] Repository Date:1879-11-89Hm [address]Cejcltkxash, [place] [address]NW: 03/17/2018 Tertiary NOT GIVENUNK [place] Insurance:SELF PAY [facility] Number: Effective Repository Date:2018-03-17 02/04/2018 ANGEL Deluca [id number] Insurance:MEDICARE [place]: Community ARGELIA RDWOOSTER, PART A [facility] [id number] Memorial Hospital [address]Jmz: Number: Repository [id number] (HP) Date:2018-02-04 02/04/2018 Secondary ANGEL Deluca Insurance:CIGNAPolicy [place]: Community Number: [id number] Hospital [id number] Repository Date:9753-87-42Px [address]Gkzojrfxebr, [place] [address]CQ: 02/04/2018 Tertiary NOT GIVENUNK [place] Insurance:SELF PAY [facility] Number: Effective Repository Date:2018-02-04 02/01/2018 ANGEL Gaxiola Primary ANGEL Deluca [id number] Insurance:MEDICARE [place]: Community ARGELIA RDWOOSTER, PART A [facility] [id number] Memorial Hospital [address]Ivq: Number: Repository [id number] () Date:2017-12-31 02/01/2018 Secondary ANGEL Deluca Insurance:CIGNAPolicy [place]: Community Number: [id number] Hospital [id number] Repository Date:8838-54-34Oz [address]Owdicmegher, [place] [address]BQ: 02/01/2018 Tertiary NOT GIVENUNK [place] Insurance:SELF PAY [facility] Number: Effective Repository Date:2018-02-01 01/27/2018 ANGEL Gaxiola Primary ANGEL Deluca [id number] Insurance:MEDICARE [place]: Community ARGELIA RDWOOSTER, PART A [facility] [id number] Memorial Hospital [address]Ehy: Number: Repository [id number] () Date:2001-09-17 01/27/2018 Secondary ANGEL Deluca Insurance:CIGNAPolicy [place]: Community Number: [id number] Hospital [id number] Repository Date:4959-11-31Xz [address]Uvvfuucpyas, [place] [address]MI: 01/27/2018 Tertiary NOT GIVENUNK Collins Insurance:SELF PAY [facility] Number: Effective Repository Date:2017-10-21 01/07/2018 ANGEL Gaxiola Primary ANGEL Deluca [id number] Insurance:MEDICARE [place]: Community ARGELIA RDWOOSTER, PART A [facility] [id number] Memorial Hospital [address]Izd: Number: Repository [id number] (HP) Date:2017-12-25 01/07/2018 Secondary ANGEL Deluca Insurance:CIGNAPolicy [place]: Community Number: [id number] Hospital [id number] Repository Date:3014-56-45Dm [address]Icwnnzjmfzr, [place] [address]LK: 01/07/2018 Tertiary NOT GIVENUNK Collins Insurance:SELF PAY [facility] Number: Effective Repository Date:2017-12-25 01/07/2018 AGNEL Gaxiola Primary ANGEL Deluca [id number] Insurance:MEDICARE [place]: Community ARGELIA RDWOOSTER, PART A [facility] [id number] Memorial Hospital 85872Kvg: Number: Repository [id number] (HP) Date:2017-12-25 01/07/2018 Secondary ANGEL Deluca Insurance:CIGNAPolicy [place]: Community Number: [id number] Hospital [id number] Repository Date:1977-54-69Uv [address]Ppemiufpwvq, [place] [address]ME: 01/07/2018 Tertiary NOT GIVENUNK Collins Insurance:SELF PAY [facility] Number: Effective Repository Date:2018-01-07 12/31/2017 ANGEL Deluca [id number] Insurance:MEDICARE [place]: Community ARGELIA RDWOOSTER, PART A [facility] [id number] Memorial Hospital [address]Owb: Number: Repository [id number] (HP) Date:2017-12-31 12/31/2017 Secondary ANGEL Deluca Insurance:CIGNAPolicy [place]: Community Number: [id number] Hospital [id number] Repository Date:7310-73-97O[address]Wrbabcdqiyu, [place] [address]FM: 12/31/2017 Tertiary NOT GIVENUNK [place] Insurance:SELF PAY [facility] Number: Effective Repository Date:2017-12-31 12/25/2017 ANGEL Gaxiola Primary ANGEL Deluca [id number] Insurance:MEDICARE BRENN[place]OB: [facility], PART A [facility] [id number] Memorial Hospital [address]Ziu: Number: Repository [id number] (HP) Date:2017-12-15 12/25/2017 Secondary ANGEL Walloster Insurance:CIGNAPolicy [place]: Community Number: [id number] Hospital [id number] Repository Date:5022-62-40Ye [address]Fblcidnbjpj, [place] [address]YA: 12/25/2017 Tertiary NOT GIVENUNK [place] Insurance:SELF PAY [facility] Number: Effective Repository Date:2017-12-25 12/21/2017 ANGEL Gaxiola Primary ANGEL Deluca [id number] Insurance:MEDICARE BRENN[place]OB: [facility], PART A [facility] [id number] Memorial Hospital [address]Lth: Number: Repository [id number] (HP) Date:2017-08-06 12/21/2017 Secondary ANGEL Deluca Insurance:CIGNAPolicy [place]: Community Number: [id number] Hospital [id number] Repository Date:5212-01-82QU [address]TOKPUTVOZJJ, [place] [address]ZH: 12/21/2017 Tertiary NOT GIVENUNK [place] Insurance:SELF PAY [facility] Number: Effective Repository Date:2017-08-06 12/01/2017 ANGEL Gaxiola Primary ANGEL Deluca [id number] Insurance:MEDICARE [place]: Community ARGELIA RDWOOSTER, PART A [facility] [id number] Memorial Hospital [address]110[address]Cvo: Number: Repository [id number] (HP) Date:2001-09-17 12/01/2017 Secondary ANGEL Deluca Insurance:CIGNAPolicy [place]: Community Number: [id number] Hospital [id number] Repository Date:9383-99-48Pf [address] [place] [address]Gbgytrrzivq, [place] [address]YE: 12/01/2017 Tertiary NOT GIVENUNK [place] Insurance:SELF PAY [facility] Number: Effective Repository Date:2017-12-01 12/01/2017 ANGEL Gaxiola Primary ANGEL Walloster [id number] Insurance:MEDICARE [place]: Community ARGELIA RDWOOSTER, PART A [facility] [id number] Memorial Hospital [address]Pch: Number: Repository [id number] (HP) Date:2017-10-21 12/01/2017 Secondary ANGEL Deluca Insurance:CIGNAPolicy [place]: Community Number: [id number] Hospital [id number] Repository Date:1323-90-30Ak [address]Gcebtfowsog, [place] [address]RI: 12/01/2017 Tertiary NOT GIVENUNK [place] Insurance:SELF PAY [facility] Number: Effective Repository Date:2017-12-01 11/19/2017 ANGEL Gaxiola Primary ANGEL Deluca [id number] Insurance:MEDICARE [place]: Community ARGELIA RDWOOSTER, PART A [facility] [id number] Memorial Hospital [address]Zbo: Number: Repository [id number] (HP) Date:2017-11-19 11/19/2017 Secondary ANGEL Deluca Insurance:CIGNAPolicy [place]: Community Number: [id number] [id number] Repository Date:9340-54-51Ae [address]Grqebgofzow, [place] [address]ZS: 11/19/2017 Tertiary NOT GIVENUNK Collins Insurance:SELF PAY [facility] Number: Effective Repository Date:2017-11-19 11/13/2017 ANGEL Gaxiola Primary ANGEL Deluca [id number] Insurance:MEDICARE [place]: Community ARGELIA RDWOOSTER, PART A [address] [address]Ooh: Number: Repository [id number] (HP) Date:2017-11-11 11/13/2017 Secondary ANGEL Deluca Insurance:CIGNAPolicy [place]: Community Number: [id number] [place] [address] [id number] Repository Date:1909-40-20Kg [address]Igogfidhcim, [place] [address]VX: 11/13/2017 Tertiary NOT GIVENUNK [place] Insurance:SELF PAY [facility] Number: Effective Repository Date:2017-11-11 11/11/2017 ANGEL Gaxiola Primary ANGEL Deluca [id number] Insurance:MEDICARE [place]: Community ARGELIA RDWOOSTER, PART A [address] [address]Eao: Number: Repository [id number] (HP) Date:2017-11-11 11/11/2017 Secondary ANGEL Deluca Insurance:CIGNAPolicy [place]: Community Number: [id number] [id number] Repository Date:0544-57-05Ga [address]Vvhdxcysdgr [place] [address]WS: 11/11/2017 Tertiary NOT GIVENUNK [place] Insurance:SELF PAY [facility] Number: Effective Repository Date:2017-11-11 10/21/2017 ANGEL Gaxiola Primary ANGEL Deluca [id number] Insurance:MEDICARE [place]: Community ARGELIA RDWOOSTER, PART A [address] [address]Ths: Number: Repository [id number] (HP) Date:2017-07-27 10/21/2017 Secondary ANGEL Deluca Insurance:CIGNAPolicy [place]: Community Number: [id number] Hospital [id number] Repository Date:7966-93-17Tq [address]Vzmachuwiax, [place] [address]OF: 10/21/2017 Tertiary NOT GIVENUNK [place] Insurance:SELF PAY [facility] Number: Effective Repository Date:2017-07-27 10/09/2017 ANGEL Gaxiola Primary ANGEL Deluca [id number] Insurance:MEDICARE [place]: Community ARGELIA RDWOOSTER, PART A [facility] [id number] Memorial Hospital [address]Bwb: Number: Repository [id number] (HP) Date:2017-10-09 10/09/2017 Secondary ANGEL Deluca Insurance:CIGNAPolicy [place]: Community Number: [id number] [place] [address] [id number] Repository Date:1125-61-85Ix [address]Sseltevieoe, [place] [address]WV: 10/09/2017 Tertiary NOT GIVENUNK [place] Insurance:SELF PAY [facility] Number: Effective Repository Date:2017-10-09 09/25/2017 NAGEL Gaxiola Primary ANGEL Deluca [id number] Insurance:MEDICARE [place]: Community ARGELIA RDWOOSTER, PART A [facility] [id number] [place] [address]Tea: Number: Repository [id number] (HP) Date:2017-09-21 09/25/2017 Secondary ANGEL Deluca Insurance:CIGNAPolicy [place]: Community Number: [id number] [place] [address] [id number] Repository Date:6443-04-79Hq [address]Vtnnqshwrdx, [place] [address]IC: 09/25/2017 Tertiary NOT GIVENUNK [place] Insurance:SELF PAY Community [facility] Number: Effective Repository Date:2017-09-21 09/21/2017 ANGEL Primary ANGEL Deluca [id number] Insurance:MEDICARE [place]: Community ARGELIA RDW[place]ER, PART A [facility] [id number] Memorial Hospital [address]Ger: Number: Repository [id number] (HP) Date:2017-09-21 09/21/2017 Secondary ANGEL Deluca Insurance:CIGNAPolicy [place]: Community Number: [id number] [place] [address] [id number] Repository Date:4401-15-06Uc [address]Ylqgffuhujs, [place] [address]EF: 09/21/2017 Tertiary NOT GIVENUNK [place] Insurance:SELF PAY [facility] Number: Effective Repository Date:2017-09-21 09/21/2017 ANGEL Gaxiola Primary ANGEL Deluca [id number] Insurance:MEDICARE [place]: Community ARGELIA RDW[place]ER, PART A [facility] [id number] Memorial Hospital [address]Awv: Number: Repository [id number] (HP) Date:2017-09-21 09/21/2017 Secondary ANGEL Deluca Insurance:CIGNAPolicy [place]: Community Number: [id number] Hospital [id number] Repository Date:4484-23-09Df [address]Fmrxjqxeuya, [place] [address]DB: 09/21/2017 Tertiary NOT GIVENUNK [place] Insurance:SELF PAY [facility] Number: Effective Repository Date:2017-09-21 09/15/2017 ANGEL Primary ANGEL Deluca [id number] Insurance:MEDICARE [place]OB: Community ARGELIA RDW[place]ER, PART A [facility] [id number] Memorial Hospital [address]Dcg: Number: Repository [id number] (HP) Date:2017-09-15 09/15/2017 Secondary ANGEL Deluca Insurance:CIGNAPolicy [place]OB: Community Number: [id number] Hospital [id number] Repository Date:4218-59-70Ym [address]Wqmxduemdsc, [place] [address]RN: 09/15/2017 Tertiary NOT GIVENUNK [place] Insurance:SELF PAY [facility] Number: Effective Repository Date:2017-09-15 09/15/2017 ANGEL Primary ANGEL Yosi [id number] Insurance:MEDICARE [place]OB: Community ARGELIA RDW[place]ER, PART A [facility] [id number] Memorial Hospital [address]Yia: Number: Repository [id number] (HP) Date:2017-09-10 09/15/2017 Secondary ANGEL Yosi Insurance:CIGNAPolicy [place]OB: Community Number: [id number] Hospital [id number] Repository Date:2003-57-97SM [address]URJPEJCJBNB, [place] [address]XL: 09/15/2017 Tertiary NOT GIVENUNK [place] Insurance:SELF PAY [facility] Number: Effective Repository Date:2017-09-10 09/05/2017 ANGEL Primary ANGEL Collins [id number] Insurance:MEDICARE [place]OB: Community ARGELIA [place]DW[place]ER, PART A [facility] [id number] Memorial Hospital [address]Wty: Number: Repository [id number] (HP) Date:2017-09-05 09/05/2017 Secondary ANGEL Collins Insurance:CIGNAPolicy [place]OB: Community Number: [id number] Hospital [id number] Repository Date:2126-13-32HD [address]YPOHUBMYOCN, [place] [address]DB: 09/05/2017 Tertiary NOT GIVENUNK [place] Insurance:SELF PAY [facility] Number: Effective Repository Date:2017-09-05 09/01/2017 ANGEL G Primary ANGEL G Yosi [id number] Insurance:MEDICARE [place]OB: Community ARGELIA RDW[place]ER, PART A [facility] [id number] Memorial Hospital [address]Drd: Number: Repository [id number] (HP) Date:2001-09-17 09/01/2017 Secondary ANGEL Deluca Insurance:Kenneth PERSAUDB: Community Number: [id number] Hospital [id number] Repository Date:2896-18-14Gx [address]Ctdhfvsuhtt, [place] [address]JN: 09/01/2017 Tertiary NOT GIVENGALILEO Collins Insurance:SELF PAY [facility] Number: Effective Repository Date:2017-09-01
== END ==
PROVIDERS: Family Provider Internal Medicine; PCP Internal Medicine; Referring Provider Internal Medicine Critical Care Medicine; Visit Provider Internal Medicine Critical Care Medicine
DX: R93.89 Abnormal findings on diagnostic imaging of other specified body structures (principal)
CPT/HCPCS: 71250

== ENCOUNTER 2018-07-30 11:09 | Day surgery (SDC) | payer MEDICARE, OTHER, SELFPAY ==
[2018-07-29 13:16] VITALS: BMI 33.7
[2018-07-29 15:20] VITALS: BMI 32.0
[2018-07-29 16:14] LABS: Anion Gap 6 (5-15); BUN 57 mg/dL (7-18); BUN/Creat Ratio 19.5 RATIO (10-20); Calcium,Total 8.6 mg/dL (8.5-10.1); Chloride 105 mmol/L (98-107); Creatinine, Serum 2.92 mg/dL (0.70-1.30); EST Glomerular Filtration Rate 22 mL/min (>60); Est Glom Filt Rate - Afr Amer 27 mL/min (>60); Estimated Creatinine Clearance 20.49 ml/min; Glucose 91 mg/dL (74-106); Potassium 5.4 mmol/L (3.5-5.1); Sodium Level 141 mmol/L (136-145)
--- NOTE | 2018-07-30 13:42 | PCM.OP.BLANK ---
Problem List (1) Atrial fibrillation Status: Acute Qualifiers: Operative Report Date of Procedure: 07/30/18 Date: 07/30/2018 Procedure: Synchronized biphasic DC cardioversion Indications: Atrial fibrillation Consent: Per the patient Premedications: Per Dr. Arturo Toro pulmonology/critical care medicine with propofol 40 mg IV push x1 Procedure: Synchronized biphasic DC cardioversion:200 joules x1: Result: Sinus rhythm Complications: No apparent complications This note was generated using a voice recognition system and there may be incorrect words, spelling or punctuation that were not noted when reviewing the office note prior to saving.
--- NOTE | 2018-07-30 15:04 | OP.PCM_ITS ---
Problem List (1) Acute on chronic diastolic CHF (congestive heart failure) Status: Acute (2) Atrial fibrillation Status: Acute Qualifiers: (3) Pulmonary hypertension Status: Acute (4) Anemia Status: Chronic (5) COPD (chronic obstructive pulmonary disease) Status: Chronic Qualifiers: COPD type: unspecified COPD Qualified Code(s): J44.9 - Chronic obstructive pulmonary disease, unspecified (6) Essential hypertension Status: Chronic (7) Hyperlipemia Status: Chronic Qualifiers: Hyperlipidemia type: unspecified Qualified Code(s): E78.5 - Hyperlipidemia, unspecified (8) Hyperlipidemia Status: Chronic (9) MDS (myelodysplastic syndrome), low grade Status: Chronic (10) Respiratory failure Status: Chronic Qualifiers: Chronicity: acute on chronic Respiratory failure complication: hypoxia Qualified Code(s): J96.21 - Acute and chronic respiratory failure with hypoxia (11) Type 2 diabetes mellitus Status: Chronic (12) DEAN (obstructive sleep apnea) Status: Suspected Operative Report Date of Procedure: 07/30/18 - Conscious sedation CONSCIOUS SEDATION REPORT BRIEF HISTORY OF PRESENT ILLNESS: The patient is an 82-year-old male who presented to [facility] [place] for an elective outpatient cardioversion due to underlying atrial fibrillation. The patient reports no PO intake since midnight. The patient does have a history of obstructive sleep apnea, but is noncompliant with therapy. The patie nt reports a history of previous smoking and current COPD. The patient denies any recent constitutional symptoms such as fevers, chills, nausea or vomiting. The patient denies previous anesthetic complications. Patient's last known ejection fraction was 60%. Patient is on 2 L nasal cannula at baseline and is followed by Dr. Connolly. PHYSICAL EXAMINATION: VITAL SIGNS: Reviewed and were acceptable. GENERAL: The patient is a male, in no apparent distress, speaking in full sentences. HEENT: Normocephalic, atraumatic. Mucous membranes are moist and pink. Good mouth opening noted. Trachea is midline. Good neck mobility. MP IV CHEST: S1, S2 irregularly irregular. No murmurs, rubs or gallops were noted. LUNGS: Clear to auscultation bilaterally without appreciable wheezes, rales or rhonchi. ABDOMEN: Soft, nontender, nondistended. Positive bowel sounds. EXTREMITIES: There is no clubbing, cyanosis or edema. ASA Class: III DESCRIPTION OF PROCEDURE: After confirmation of informed consent, the patient's anesthesia plan was reviewed in detail. Propofol was chosen. Risks and benefits were reviewed and the patient agreed to proceed. At 1:21 PM, the patient was given 40 mg of propofol. The patient achieved an appropriate level of sedation and received 1 attempt s synchronized cardioversion, at [address] Reynolds at the bedside. This was successful in achieving normal sinus rhythm. The patient did have some desaturation following sedation requiring a jaw thrust. No bradycardia was noted. Patient recovered without complication. The patient was monitored until 1:28 PM, at which time the patient reached their baseline mental status and function. The patient tolerated the procedure well. COMPLICATIONS: None ESTIMATED BLOOD LOSS: None RECOMMENDATIONS: Okay to recover in usual fashion. Code Visit [id number]: Other Procedure See Report - [id number]
--- OUTSIDE RECORDS SUMMARY | 2018-09-15 03:52 | XMS RPT_ITS ---
:1935 Author Organization [place] Support Name Relationship Address Phone BrigitteHeber Unavailable [address] + [place] [address] R Unavailable Unavailable Unavailable Heber Briggs Unavailable [address] + [place] [address] R Unavailable Unavailable Unavailable Heber Briggs Unavailable [address] + [place] [address] R Unavailable Unavailable Unavailable HEBER BRIGGS Unavailable [address] + [place] [address] R Unavailable Unavailable Unavailable HEBER BRIGGS Unavailable [address] + [place] [address] R Unavailable Unavailable Unavailable HEBER BRIGGS Unavailable [address] + [place] [address] R Unavailable Unavailable Unavailable HEBER BRIGGS Unavailable [address] + [place] [address] R Unavailable Unavailable Unavailable HEBER BRIGGS Unavailable [address] + [place] [address] R Unavailable Unavailable Unavailable HEBER BRIGGS Unavailable [address] + [place] [address] R Unavailable Unavailable Unavailable HEBER BRIGGS Unavailable [address] + [place] [address] R Unavailable Unavailable Unavailable HEBER BRIGGS Unavailable [address] + [place] [address] R Unavailable Unavailable Unavailable HEBER BRIGGS Unavailable [address] + [place] [address] R Unavailable Unavailable Unavailable HEBER BRIGGS Unavailable [address] + [place] [address] R Unavailable Unavailable Unavailable BRIGITTE HEBER Unavailable [address] + [place] [address] R Unavailable Unavailable Unavailable BRIGITTE, HEBER Unavailable [address] + [place] [address] R Unavailable Unavailable Unavailable BRIGITTE HEBER Unavailable [address] + [place] [address] R Unavailable Unavailable Unavailable BRIGITTE HEBER Unavailable [address] + [place] [address] R Unavailable Unavailable Unavailable BRIGITTE HEBER Unavailable [address] + [place] [address] R Unavailable Unavailable Unavailable BRIGITTE, HEBER Unavailable [address] + [place] [address] R Unavailable Unavailable Unavailable BRIGITTE, HEBER Unavailable [address] + [place] [address] R Unavailable Unavailable Unavailable BRIGITTE, HEBER Unavailable [address] + [place] [address] R Unavailable Unavailable Unavailable BRIGITTE HEBER Unavailable [address] + [place] [address] R Unavailable Unavailable Unavailable BRIGITTE HEBER Unavailable [address] + [place] [address] R Unavailable Unavailable Unavailable BRIGITTE HEBER Unavailable [address] + [place] [address] R Unavailable Unavailable Unavailable Brigitte Heber Unavailable [address] + [place] [address] R Unavailable Unavailable Unavailable R Unavailable Unavailable Unavailable BRIGITTE HEBER Unavailable [address] + [place] [address] R Unavailable Unavailable Unavailable BRIGITTE HEBER Unavailable [address] + [place] [address] R Unavailable Unavailable Unavailable BRIGITTE, HEBER Unavailable [address] + [place] [address] R Unavailable Unavailable Unavailable BRIGITTE HEBER Unavailable [address] + [place] [address] R Unavailable Unavailable Unavailable BRIGITTE, HEBER Unavailable [address] + [place] [address] R Unavailable Unavailable Unavailable BRIGITTE, HEBER Unavailable [address] + [place] [address] R Unavailable Unavailable Unavailable BRIGITTE, HEBER Unavailable [address] + [place] [address] R Unavailable Unavailable Unavailable BRIGITTE, HEBER Unavailable [address] + [place] [address] R Unavailable Unavailable Unavailable BRIGITTE, HEBER Unavailable [address] + [place] [address] R Unavailable Unavailable Unavailable BRIGITTE HEBER Unavailable [address] + [place] [address] R Unavailable Unavailable Unavailable BRIGITTE HEBER Unavailable [address] + [place] [address] R Unavailable Unavailable Unavailable BRIGITTE HEBER Unavailable [address] + [place] [address] R Unavailable Unavailable Unavailable BRIGITTE, HEBER Unavailable [address] + [place] [address] R Unavailable Unavailable Unavailable BRIGITTE HEBER Unavailable [address] + [place] [address] R Unavailable Unavailable Unavailable BRIGITTE, HEBER Unavailable [address] + [place] [address] R Unavailable Unavailable Unavailable BRIGITTE, HEBER Unavailable [address] + [place] [address] R Unavailable Unavailable Unavailable BRIGITTE, HEBER Unavailable [address] + [place] [address] R Unavailable Unavailable Unavailable BRIGITTE, HEBER Unavailable [address] + [place] [address] R Unavailable Unavailable Unavailable BRIGITTE, HEBER Unavailable [address] + [place] [address] R Unavailable Unavailable Unavailable BRIGITTE, HEBER Unavailable [address] + [place] [address] R Unavailable Unavailable Unavailable BRIGITTE, HEBER Unavailable [address] + [place] [address] R Unavailable Unavailable Unavailable BRIGITTE, HEBER Unavailable [address] + [place] [address] R Unavailable Unavailable Unavailable BRIGITTE, HEBER Unavailable [address] + [place] [address] R Unavailable Unavailable Unavailable BRIGITTE, HEBER Unavailable [address] + [place] [address] R Unavailable Unavailable Unavailable BRIGITTE, HEBER Unavailable [address] + [place] [address] R Unavailable Unavailable Unavailable BRIGITTE, HEBER Unavailable [address] + [place] [address] R Unavailable Unavailable Unavailable BRIGITTE, HEBER Unavailable [address] + [place] [address] R Unavailable Unavailable Unavailable BRIGITTE, HEBER Unavailable [address] + [place] [address] R Unavailable Unavailable Unavailable BRIGITTE, HEBER Unavailable [address] + [place] [address] R Unavailable Unavailable Unavailable BRIGITTE, HEBER Unavailable [address] + [place] [address] R Unavailable Unavailable Unavailable BRIGITTE, HEBER Unavailable [address] + [place] [address] R Unavailable Unavailable Unavailable BRIGITTE, HEBER Unavailable [address] + [place] [address] R Unavailable Unavailable Unavailable BRIGITTE, HEBER Unavailable [address] + [place] [address] R Unavailable Unavailable Unavailable BRIGITTE, HEBER Unavailable [address] + [place] [address] R Unavailable Unavailable Unavailable BRIGITTE, HEEBR Unavailable [address] + [place] [address] R Unavailable Unavailable Unavailable BRIGITTE, HEBER Unavailable [address] + [place] [address] R Unavailable Unavailable Unavailable BRIGITTE, HEBER Unavailable [address] + [place] [address] R Unavailable Unavailable Unavailable BRIGITTE HEBER Unavailable [address] + [place] [address] R Unavailable Unavailable Unavailable BRIGITTE, HEBER Unavailable [address] + [place] [address] R Unavailable Unavailable Unavailable BRIGITTE, HEBER Unavailable [address] + [place] [address] R Unavailable Unavailable Unavailable BRIGITTE, HEBER Unavailable [address] + [place] [address] R Unavailable Unavailable Unavailable BRIGITTE, HEBER Unavailable [address] + [place] [address] R Unavailable Unavailable Unavailable BRIGITTE, HEBER Unavailable [address] + [place] [address] R Unavailable Unavailable Unavailable BRIGITTE, HEBER Unavailable [address] + [place] [address] R Unavailable Unavailable Unavailable BRIGITTE HEBER Unavailable [address] + [place] [address] R Unavailable Unavailable Unavailable BRIGITTE, HEBER Unavailable [address] + [place] [address] R Unavailable Unavailable Unavailable BRIGITTE HEBER Unavailable [address] + [place] [address] R Unavailable Unavailable Unavailable BRIGITTE, HEBER Unavailable [address] + [place] [address] R Unavailable Unavailable Unavailable BRIGITTE HEBER Unavailable [address] + [place] [address] R Unavailable Unavailable Unavailable BRIGITTE, HEBER Unavailable [address] + [place] [address] R Unavailable Unavailable Unavailable BRIGITTE, HEBER Unavailable [address] + [place] [address] R Unavailable Unavailable Unavailable BRIGITTE HEBER Unavailable . + [place] [address] R Unavailable Unavailable Unavailable Care Team Providers Name Role Phone Marcelo Reynolds Attending Unavailable Roc Martinez Referring Unavailable Marcelo Reynolds Attending Unavailable Marcelo Reynolds Referring Unavailable Oleghe, Efewongbe Primary Care Unavailable Marcelo Reynolds Attending Unavailable Marcelo Reynolds Referring Unavailable Oleghe, Efewongbe Primary Care Unavailable Marcelo Reynolds Consulting Unavailable Arturo Toro Attending Unavailable Marcelo Reynolds Referring Unavailable Oleghe, Efewongbe Primary Care Unavailable Marcelo Reynolds Consulting Unavailable Marcelo Reynolds Attending Unavailable Oleghe, Efewongbe Referring Unavailable Oleghe, Efewongbe Primary Care Unavailable Jopperi, Ray Admitting Unavailable Jack Coy Attending Unavailable Augustine, Maura Consulting Unavailable Jopperi, Ray Admitting Unavailable Jopperi, Ray Attending Unavailable Oleghe, Efewongbe Primary Care Unavailable Jopperi, Ray Consulting Unavailable Jopperi, Ray Admitting Unavailable Ashelfah, Ghasem Attending Unavailable Oleghe, Efewongbe Primary Care Unavailable Ashelfah, Ghasem Consulting Unavailable Jopperi, Ray Admitting Unavailable Michael Philippe Attending Unavailable Oleghe, Efewongbe Primary Care Unavailable Augustine, Maura Consulting Unavailable Jack Coy Consulting Unavailable Jopperi, Ray Admitting Unavailable Michael Philippe Attending Unavailable Oleghe, Efewongbe Primary Care Unavailable Augustine, Maura Consulting Unavailable Anneliese Jack Consulting Unavailable Jopperi, Ray Admitting Unavailable Michael Philippe Attending Unavailable Oleghe, Efewongbe Primary Care Unavailable Augustine, Maura Consulting Unavailable Anneliese Jack Consulting Unavailable Marcelo Mclean Attending Unavailable Holden Chavarria Attending Unavailable Oleghe, Efewongbe Primary Care Unavailable Oleghe, Efewongbe Referring Unavailable Jack Augustin SHEET METAL FABRICATOR-C Attending Unavailable Oleghe, Efewongbe Referring Unavailable Oleghe, Efewongbe Primary Care Unavailable Jack Augustin SHEET METAL FABRICATOR-C Attending Unavailable Jack Augustin SHEET METAL FABRICATOR-C Referring Unavailable Oleghe, Efewongbe Primary Care Unavailable Oleghe, Efewongbe Referring Unavailable Jack Augustin SHEET METAL FABRICATOR-C Attending Unavailable Oleghe, Efewongbe Primary Care Unavailable [...] Oleghe, Efewongbe Primary Care Unavailable Jack Augustin SHEET METAL FABRICATOR-C Attending Unavailable Jack Augustin SHEET METAL FABRICATOR-C Referring Unavailable Oleghe, Efewongbe Primary Care Unavailable TALHA FORD Attending Unavailable Oleghe, Efewongbe Primary Care Unavailable TALHA FORD Referring Unavailable CurtisMonica watson Attending Unavailable Oleghe, Efewongbe Attending Unavailable Oleghe, Efewongbe Referring Unavailable Oleghe, Efewongbe Primary Care Unavailable Oleghe, Efewongbe Attending Unavailable Oleghe, Efewongbe Referring Unavailable Oleghe, Efewongbe Primary Care Unavailable Marcelo Mclean Attending Unavailable Marcelo Mclean Attending Unavailable Holden Chavarria Attending Unavailable Oleghe, [...] Unavailable Marcelo Reynolds Attending Unavailable Jack Augustin SHEET METAL FABRICATOR-C Attending Unavailable Oleghe, Efewongbe Referring Unavailable Oleghe, Efewongbe Primary Care Unavailable Holden Chavarria Attending Unavailable Oleghe, Efewongbe Referring Unavailable Oleghe, Efewongbe Primary Care Unavailable Holden Chavarria Consulting Unavailable Jack Augustin SHEET METAL FABRICATOR-C Attending Unavailable Jack Augustin SHEET METAL FABRICATOR-C Referring Unavailable Oleghe, Efewongbe Primary Care Unavailable Jack Augustin SHEET METAL FABRICATOR-C Attending Unavailable Oleghe, Efewongbe Referring Unavailable Oleghe, Efewongbe Primary Care Unavailable Jack Augustin SHEET METAL FABRICATOR-C Attending Unavailable Augustin, Jack SHEET METAL FABRICATOR-C Referring Unavailable Oleghe, Efewongbe Primary Care Unavailable Augustin, Jack SHEET METAL FABRICATOR-C Attending Unavailable Augustin, Jack SHEET METAL FABRICATOR-C Referring Unavailable Oleghe, Efewongbe Primary Care Unavailable Augustin, Jack SHEET METAL FABRICATOR-C Attending Unavailable Oleghe, Efewongbe Primary Care Unavailable Augustin, Jack SHEET METAL FABRICATOR-C Referring Unavailable Augustin, Jack SHEET METAL FABRICATOR-C Attending Unavailable Oleghe, Efewongbe Primary Care Unavailable Augustin, Jack SHEET METAL FABRICATOR-C Attending Unavailable Oleghe, Efewongbe Referring Unavailable Oleghe, [...] Khan Consulting Unavailable Mic Khan Attending Unavailable KitMic harris Admitting Unavailable KittoMic lunsford Referring Unavailable Oleghe, Efewongbe Primary Care Unavailable Shawn Dickson Consulting Unavailable Yonny Woody Consulting Unavailable Jasmeet Connolly D.O. Consulting Unavailable Mic Khan Consulting Unavailable KitMic harris Admitting Unavailable Jasmeet Connolly D.O. Attending Unavailable Mic Khan Referring Unavailable Oleghe, Efewongbe Primary Care Unavailable Shawn Dickson Consulting Unavailable Yonny Woody Consulting Unavailable Jasmeet Connolly D.O. Consulting Unavailable Mic Khan Consulting Unavailable Mic Khan Attending Unavailable Mic Khan Admitting Unavailable Mic Khan [...] Efewongbe Attending Unavailable Oleghe, Efewongbe Referring Unavailable Moodisparadha, Marcelo Attending Unavailable Holden Chavarria Attending Unavailable Oleghe, Efewongbe Referring Unavailable Oleghe, Efewongbe Primary Care Unavailable Holden Chavarria Consulting Unavailable Gail, Marcelo Attending Unavailable Moodispaw, Marcelo Referring Unavailable Oleghe, Efewongbe Primary Care Unavailable Jasmeet Connolly D.O. Attending Unavailable Oleghe, Efewongbe Primary Care Unavailable Marcelo Reynolds Attending Unavailable Moodisparadha, Marcelo Referring Unavailable Oleghe, Efewongbe Primary Care Unavailable Milton Herrera.Enrique. Attending Unavailable Jasmeet Connolly D.O. Referring Unavailable Oleghe, Efewongbe Primary Care Unavailable Jenna Gerber Attending Unavailable Oleghe, Efewongbe Referring Unavailable Jack Augustin SHEET METAL FABRICATOR-C Attending Unavailable Oleghe, Efewongbe Referring Unavailable RAPAKA, SARAHY Attending Unavailable RAPAKA, SARAHY Referring Unavailable RAPAKA, SARAHY Referring Unavailable RAPAKA, SARAHY Referring Unavailable [facility] Primary Care Unavailable PROBLEMS PROBLEMS DATE TYPE CONDITION / CODE ATTENDING STATUS SOURCE 08/06/2018 Unknown I48.91 - Unspecified Moodispaw, Active [facility] atrial fibrillation / [facility] I48.91(ICD-10) Hospital Repository 07/31/2018 Unknown I50.33 - Acute on Arturo Toro Active [facility] chronic diastolic [facility] (congestive) heart Hospital failure / Repository I50.33(ICD-10) 07/31/2018 Unknown R06.02 - Shortness of Arturo Toro Active [facility] breath / [facility] R06.02(ICD-10) Hospital Repository 07/20/2018 Unknown G47.33 - Obstructive Zabrina Active [facility] sleep apnea (adult) [facility] (pediatric) / Hospital G47.33(ICD-10) Repository 06/18/2018 Unknown G47.10 - Hypersomnia, Jasmeet Connolly Active [facility] unspecified / [facility] G47.10(ICD-10) Hospital Repository 06/18/2018 Unknown R93.89 - Abnormal Jasmeet Connolly Active [facility] findings on 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, unspecified / Hospital D46.20(ICD-10) Repository 09/07/2018 Unknown D69.6 - Holden Chavarria Active [facility] Thrombocytopenia, [facility] unspecified / Hospital D69.6(ICD-10) Repository 06/09/2018 Admitting Unknown / NA Active [facility](Unknown) [facility] Repository 06/09/2018 Active Chronic obstructive SARAHY TOUSSAINT Active [facility] disease, Clinic Main unspecified / [place] J44.9(ICD-10) Repository 06/09/2018 Active Other nonspecific RAPASARAHY RICHTER Active [facility] abnormal finding of Clinic Main lung field / [place] R91.8(ICD-10) Repository 06/09/2018 Active Personal history of SARAHY TOUSSAINT Active [facility] nicotine dependence / Clinic Main Z87.891(ICD-10) [place] Repository 06/09/2018 Active Chronic diastolic SARAHY TOUSSAINT Active [facility] (congestive[facility] heart [facility] Main failure / [place] I50.32(ICD-10) Repository 06/09/2018 Active Thrombocytopenia, SARAHY TOUSSAINT Active [facility] unspecified / Clinic Main D69.6(ICD-10) [place] Repository 06/08/2018 Unknown M54.5 - Low back pain Ursula Duff Active [facility] / M54.5(ICD-10) [facility] Repository 05/17/2018 Unknown E11.9 - Type 2 Oleghe, Active [facility] diabetes mellitus [facility] without complications Hospital / E11.9(ICD-10) Repository 04/28/2018 Unknown R04.2 - Hemoptysis / Augustin, Jack Active [facility] R04.2(ICD-10) SHEET METAL FABRICATOR-C [facility] Repository 04/28/2018 Unknown R05 - Cough / Augustin, Jack Active [facility] R05(ICD-10) SHEET METAL FABRICATOR-C [facility] Repository 03/17/2018 Unknown 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, 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, lumbar Hospital region / Repository M51.36(ICD-10) 03/17/2018 Unknown R93.7 - Abnormal Augustin, Jack Active [facility] findings on SHEET METAL FABRICATOR-C [facility] diagnostic imaging of Hospital other parts of Repository musculoskeletal system / R93.7(ICD-10) 03/17/2018 Unknown M54.16 - Augustin, Jack Active [facility] Radiculopathy, lumbar SHEET METAL FABRICATOR-C [facility] region / Hospital M54.16(ICD-10) Repository 02/03/2018 Unknown M54.42 - Lumbago with Jack Augustin Active [facility] sciatica, left side / SHEET METAL FABRICATOR-C [facility] M54.42(ICD-10) Hospital Repository 01/07/2018 Unknown I10 - Essential [place], Active [facility] (primary) [facility] hypertension / Hospital I10(ICD-10) Repository 01/07/2018 Unknown E78.5 - [place], Active [facility] Hyperlipidemia, [facility] unspecified / Hospital E78.5(ICD-10) Repository 01/07/2018 Unknown I49.3 - Ventricular [place], Active [facility] premature [facility] depolarization / Hospital I49.3(ICD-10) Repository 01/07/2018 Unknown I49.1 - Atrial [place], Active [facility] premature [facility] depolarization / Hospital I49.1(ICD-10) Repository 12/25/2017 Unknown I47.2 - Ventricular [place], Active [facility] tachycardia / [facility] I47.2(ICD-10) Hospital Repository 12/25/2017 Unknown I47.1 - [place], Active [facility] Supraventricular [facility] tachycardia / Hospital I47.1(ICD-10) Repository 12/25/2017 Unknown R00.2 - Palpitations [place], Active [facility] / R00.2(ICD-10) [facility] Hospital Repository 12/01/2017 Unknown N18.3 - Chronic Holden Chavarria Active [facility] kidney disease, stage [facility] 3 (moderate) / Hospital N18.3(ICD-10) Repository 11/13/2017 Unknown N40.1 - Benign TALHA FORD Active [facility] prostatic hyperplasia [facility] with lower urinary Hospital tract symptoms / Repository N40.1(ICD-10) 09/21/2017 Unknown M25.551 - Pain in David Reich Active [facility] right hip / [facility] M25.551(ICD-10) Hospital Repository 09/21/2017 Unknown M25.552 - Pain in David Reich Active [facility] left hip / [facility] M25.552(ICD-10) Hospital Repository 09/21/2017 Unknown S80.01XA - Contusion David Reich Active [facility] of right knee, [facility] initial encounter / Hospital S80.01XA(ICD-10) Repository 09/21/2017 Unknown M70.41 - Prepatellar David Reich Active [facility] bursitis, right knee [facility] / M70.41(ICD-10) Hospital Repository PROCEDURES PROCEDURES No Procedure Records FoundRESULTS RESULTS CBC-COMPLETE BLOOD CNT Collected: 09/08/2018 Status: F Source: [facility] NO DIFF 7:00 AM [facility] REPOSITORY TYPE CODE TESTS RESULT OUT OF RANGE REFERENCE UNITS LAB L100.1000 4.4-11.0 K/mm3 Low WBC 3.6 LAB L100.1200 4.6-6.2 M/mm3 Low RBC 2.88 LAB L100.1300 13.0-16.5 g/dl Low HGB 8.1 LAB L100.1400 40-54 % Low HCT 26.2 LAB L100.1500 80-94 fL Normal MCV 91.0 LAB L100.1600 27.0-32.0 pg Normal MCH 28.1 LAB L100.1700 32-36 g/gl Low MCHC 30.9 LAB L100.1810 11.6-14.6 % High RDW CV 22.8 LAB L100.1820 35.1-43.9 fl High RDW SD 68.0 LAB L100.1900 150-450 K/mm3 Low PLT 84 Performed By: #### L100.0500, L100.4500 #### [facility] [address] [place], [place], [id number] DIFFERENTIAL COMMENT Collected: 09/08/2018 Status: F Source: [facility] 7:00 AM [facility] REPOSITORY TYPE CODE TESTS RESULT OUT OF RANGE REFERENCE UNITS LAB L100.4500 Normal SMEAR COMMENT Result Comment: SLIDE SCANNED - 1+ ANISO, 1+ RBC FRAGMENTS, 1+ LARGE PLTS. Performed By: #### L100.0500, L100.4500 #### [facility] [address] [place], [place], [address] CBC-COMPLETE BLOOD CNT Collected: 09/07/2018 Status: F Source: [facility] NO DIFF 6:22 AM [facility] REPOSITORY Order Comment: 120 TYPE CODE TESTS RESULT OUT OF RANGE REFERENCE UNITS LAB L100.1000 4.4-11.0 K/mm3 Low WBC 3.2 LAB L100.1200 4.6-6.2 M/mm3 Low RBC 2.85 LAB L100.1300 13.0-16.5 g/dl Low HGB 7.9 LAB L100.1400 40-54 % Low HCT 25.9 LAB L100.1500 80-94 fL Normal MCV 90.9 LAB L100.1600 27.0-32.0 pg Normal MCH 27.7 LAB L100.1700 32-36 g/gl Low MCHC 30.5 LAB L100.1810 11.6-14.6 % High RDW CV 22.6 LAB L100.1820 35.1-43.9 fl High RDW SD 68.6 LAB L100.1900 150-450 K/mm3 Low PLT 68 Performed By: #### L100.0500, L100.4500 #### [facility] [address] [place], [place], [address] DIFFERENTIAL COMMENT Collected: 09/07/2018 Status: F Source: [facility] 6:22 AM [facility] REPOSITORY Order Comment: 120 TYPE CODE TESTS RESULT OUT OF RANGE REFERENCE UNITS LAB L100.4500 Normal SMEAR COMMENT COMMENT Result Comment: SLIDE SCANNED - 1+ GIANT PLTS, RARE RBC FRAGMENTS, 1+ ANISO. Performed By: #### L100.0500, L100.4500 #### [facility] [address] [place], [place], [id number] BASIC METABOLIC Collected: 09/07/2018 Status: F Source: [facility] PROFILE (BMP) 6:22 AM [facility] REPOSITORY Order Comment: 120 TYPE CODE TESTS RESULT OUT OF RANGE REFERENCE UNITS LAB L501.0100 74-106 mg/dL High GLU 122 Result Comment: Fasting Glucose result from 100 to 125 mg/dL suggests IMPAIRED HOMEOSTASIS per A.D.A. criteria. Please note revised GLUCOSE reference range effective 2017. LAB L501.1000 7-18 mg/dL High BUN 36 LAB L501.1100 0.70-1.30 mg/dL High CREAT,SERUM 2.00 Result Comment: The validity of the calculated GFR AND GFRAA in patients over 70 years has not been determined. Clinical correlation is essential. LAB L501.1110 >60 mL/min Low EST GFR 34 Result Comment: Non- GFR Calc LAB L501.1115 >60 mL/min Low EST GFR - AA 41 Result Comment: GFR Calc LAB L501.1300 10-20 RATIO Normal BUN/CRE 18.0 LAB L501.2200 8.5-10.1 mg/dL Low CA 8.2 LAB L501.5300 136-145 mmol/L NA Normal 139 LAB L501.5600 3.5-5.1 mmol/L K Normal 3.9 LAB L501.5900 98-107 mmol/L CL Normal 100 LAB L501.6100 21.0-32.0 mmol/L Normal CO2 31.0 LAB L501.6200 5-15 Normal GAP 8 Performed By: #### L500.2500 #### [facility] [address] [place], [address] BASIC METABOLIC Collected: 09/04/2018 Status: F Source: [place] PROFILE (BMP) 6:10 AM [facility] REPOSITORY TYPE CODE TESTS RESULT OUT OF RANGE REFERENCE UNITS LAB L501.0100 74-106 mg/dL High GLU 108 Result Comment: Fasting Glucose result from 100 to 125 mg/dL suggests IMPAIRED HOMEOSTASIS per A.D.A. criteria. Please note revised GLUCOSE reference range effective 2017. LAB L501.1000 7-18 mg/dL High BUN 37 LAB L501.1100 0.70-1.30 mg/dL High CREAT,SERUM 1.96 Result Comment: The validity of the calculated GFR AND GFRAA in patients over 70 years has not been determined. Clinical correlation is essential. LAB L501.1110 >60 mL/min Low EST GFR 35 Result Comment: Non- GFR Calc LAB L501.1115 >60 mL/min Low EST GFR - AA 42 Result Comment: GFR Calc LAB L501.1300 10-20 RATIO Normal BUN/CRE 18.9 LAB L501.2200 8.5-10.1 mg/dL CA Normal 8.6 LAB L501.5300 136-145 mmol/L NA Normal 140 LAB L501.5600 3.5-5.1 mmol/L K Normal 4.2 LAB L501.5900 98-107 mmol/L CL Normal 100 LAB L501.6100 21.0-32.0 mmol/L Normal CO2 32.0 LAB L501.6200 5-15 Normal GAP 8 Performed By: #### L500.2500 #### [facility] [address] [place], [address] DISCHARGE SUMMARY Observed: 09/01/2018 Status: F Source: [place] 10:02 PM [facility] REPOSITORY [facility] Medical Records Department [address] [place] [address] Discharge Summary 09/01/18 1446 MR#: [id number] Acct: [id number] Name: ANGEL BRIGGS Rep #: [id number] : 1935 82 From: Michael SPENCER PCP: Roc Martinez MD Status: DIS IN Y Location: [place] [address] ADDENDUM by Jack Coy DO on 09/01/18 at 2201 Code Visit Patient was seen and examined independently of Michael Philippe today. He appears stable for discharge to a penitentiary facility at this time. Physical exam: On examination he appeared in good health and spirits. Vital signs as documented. Skin warm and dry and without overt rashes. Neck without JVD. Lungs clear. Heart exam notable for irregular rhythm. Abdomen unremarkable and without evidence of organomegaly, masses, or abdominal aortic enlargement. Extremities-+3 mm pitting edema is noted over both lower legs. Neuro: Cranial nerves II through XII are grossly intact, no focal motor deficits were noted, sensation to light touch and pinprick intact. Psych: Patient is alert and oriented x3, he does not appear anxious or depressed I have reviewed Michael Philippe's discharge summary, I wish to make the following additional final diagnosis: Pulmonary fibrosis, bronchiectasis, and acute kidney injury on stage III chronic kidney disease I endorse Michael Philippe's discharge summaries with the above additions to final diagnosis. Inpatient E AND M: [id number] Disch Hosp 09/01/182201 <Electronically signed by Jack Coy DO> Date Jack Coy DO cc: JOHANNA Philippe; Roc Martinez MD; Jack Coy DO * Signed Discharge Date and Diagnosis Date of Admission: 08/28/18 Date of Discharge: 09/01/18 - Primary Discharge Diagnosis Acute diastolic congestive heart failure exacerbation History of CAD Chronic atrial fibrillation Acute on chronic anemia, with history of MDS CKD stage III COPD with chronic hypoxic respiratory failure Type 2 diabetes mellitus Hypertension BPH Debility with fall - Secondary Discharge Diagnosis Chronic Problems (Last Updated 08/29/18 @ 11:40 by Urmila Gardner MD) Respiratory failure (Chronic) Chronic kidney disease (Chronic) Myelodysplastic syndrome (Chronic) Chronic atrial fibrillation (Chronic) Anemia (Chronic) BPH (benign prostatic hyperplasia) (Chronic) Arthritis (Chronic) Essential hypertension (Chronic) Thrombocytopenia (Chronic) MDS (myelodysplastic syndrome), low grade (Chronic) Hyperlipidemia (Chronic) Type 2 diabetes mellitus (Chronic) COPD (chronic obstructive pulmonary disease) (Chronic) Hospital Course and Treatment Imaging Results: RAD/Chest PA and Lateral IMPRESSION: Left upper lung infiltrate. Foot Xray IMPRESSION: No definite evidence for acute fracture seen. There is likely an os navicularis present. Please correlate with point tenderness in this region for subtle fractures US/Kidney and Bladder IMPRESSION: 1. Normal size kidneys without hydronephrosis. There is borderline increased cortical echogenicity of the kidneys, which could reflect change of long-standing medical renal disease. 2. Mild mural thickening of the normal capacity urinary bladder. 3. Small volume ascites in the right upper quadrant as well as very small left pleural effusion. RAD/Chest 1 View (Portable) IMPRESSION: Persistent left upper lobe infiltrate without interval change. Consultations: [place]-nephrology Operations: None Procedures: None Summary of Care Provided: Hospital course: The patient is a 82 year old M who presented to the emergency room with chief complaint of fatigue and weakness has been progressively working worsening over the past week. He had stopped taking his home Lasix about a week prior to presentation as well because of frequent bathroom trips. In the emergency room he appeared to have acute CHF exacerbation with rales on exam, increased lower extremity edema, an elevated BNP and chest x-ray consistent with CHF. He also recently had a fall and injured his right foot, and x- ray was obtained and did not have any fracture. He was admitted to the PCU and placed on IV Lasix for acute diastolic CHF exacerbation. He recently had an echocardiogram with an EF of 60% so a repeat was deferred. He appeared to have significant CKD and no history of seeing system administration manager so Dr. Bradshaw was consulted. Renal ultrasound was obtained which demonstrated medical renal disease. His kidneys tolerated diuresis. Improved significantly with diuresis. He was weaned to 2 L of oxygen. He is not taking care of himself properly at home and had a recent fall with a foot injury so physical therapy and occupational therapy were ordered. He demonstrated significant debility and penitentiary was recommended. Also of note he has an underlying history of myelodysplastic syndrome for which she has seen oncology in the past and he was significantly anemic on presentation. He was given 1 unit of packed red blood cells with good improvement. His stool occult blood was negative he had no evidence of bleeding so his Eliquis was continued to take for chronic A. fib. He was discharged to penitentiary in stable condition. He will need to follow-up with his PCP in 1-2 weeks, nephrology in 2 weeks, his quantitative manager in 2 weeks, and he will need to have a BMP checked in 3 days, CBC checked in 5 days. This patient was seen by Michael Philippe PA-C under the supervision of Doctor Anneliese. [] - Physical Exam General: Alert, Oriented x3, Cooperative HEENT: Atraumatic, PERRLA, EOMI, Normocephalic Neck: Supple, No JVD, Negative Carotid Bruits Lungs: Rales Cardiovascular: Regular rate, No murmurs Abdomen: Bowel Sounds Present, Soft, Non Tender Extremities: Capillary Refill Less than 3 Seconds, Edema Skin: No rashes, No breakdown Musculoskeletal: No Tenderness to Palpation of Joints or Extremities Neurological: Cranial nerves II-XII grossly intact Psych/Mental Status: Normal Affect, Appropriate, Alert and oriented to time, place, person, mood and affect Vital Signs Temp Pulse Resp BP Pulse Ox 98.9 F 81 17 112/57 L 93 09/01/18 09:28 09/01/18 13:00 09/01/18 13:00 09/01/18 09:28 01/16/19 09:28 Oxygen Flow Rate (L/min) 2 Oxygen Delivery Method Nasal Cannula Weight: 222 lb 7.143 oz Body Mass Index (BMI) 32.2 Intake and Output for Last 24 Hours Intake Total 1340 / 1340 780 / 780 340 / 340 Output Total 3075 / 3075 1325 / 1325 225 / 225 Balance -1735 / -1735 -545 / -545 115 / 115 Microbiology Past 72 Hours 08/31/18 Unknown Gram Stain - Final Sputum, Expectorated/Coughed Respiratory Culture - Preliminary Laboratory Tests Past 24 Hrs Sodium 138 Potassium 4.0 Chloride 100 Carbon Dioxide 33.0 H BUN 30 H Creatinine 1.76 H Estim Creat Clear Calc 33.99 POC Glucose POC Glucose 137 H 128 H 148 H POC Glucose 119 H Discharge Diet: Low fat/ Low Cholesterol, 1800 Calorie Control Diet, 2000 mg Sodium Diet Home Medications: Medications to take at Discharge Metformin HCl [Glucophage] 1,000 mg PO DAILY 05/26/18 simvastatin 20 mg tablet 20 mg PO QHS #90 tab 05/31/18 amiodarone 200 mg tablet 200 mg PO DAILY #30 tab 06/21/18 tiotropium bromide 2.5 mcg/actuation mist for inhalation 2 puff INHALATION QDAY #1 ea 07/20/18 apixaban 2.5 mg tablet 2.5 mg PO BID #60 tab 08/13/18 guaifenesin ER 1,200 mg tablet, extended release 12 hr 1,200 mg PO Q12H #90 tab 08/13/18 tamsulosin 0.4 mg capsule 0.4 mg PO DAILY #90 cap 08/13/18 Albuterol Aerosols [Ventolin Aerosols] 2.5 mg INHALATION Q4H PRN PRN vial.neb. 09/01/18 Furosemide [Lasix] 40 mg PO BID #60 tablet 09/01/18 Metoprolol(XL)Succ [Toprol Xl (Beta Daniel)] 25 mg PO BID tablet 09/01/18 Following Prescrptions Were Given to Patient: Furosemide [Lasix] 40 mg PO BID #60 tablet Primary Care Physician: Roc Martinez MD [Primary Care Provider] - Please follow up with your Primary Care Physician in: 1-2 weeks Please Follow Up With: Maura Bradshaw DO When: 2 weeks Please Follow Up With: Marcelo Reynolds MD When: 2 weeks Disposition: [facility] facility Minutes spent on discharge:: 35 Medical Necessity - Tobacco Use Smoking Status: Former smoker Tobacco Use: Non-smoker Meaningful Use Info Meaningful Use Diagnoses (Choose all that apply): CHF - CHF MARIA EUGENIA/ARB ordered at discharge?: No Reason MARIA EUGENIA/ARB not ordered?: Worsening renal disease Documented LVEF (%): 60 09/01/18 1455 <Electronically signed by Michael SPENCER> Date Michael SPENCER 09/01/18 1642<Electronically signed by Jack Coy DO> Cosigner Signature (if applicable): Date Jack Coy DO CC: JOHANNA Philippe; Roc Martinez MD; Jack Coy DO Signed CONSULTATION Observed: 09/01/2018 Status: F Source: [place] 2:02 PM [facility] REPOSITORY [facility] Medical Records Department [address] [place] [address] Consultation 08/30/18 1318 MR#: [id number] Acct: [id number] Name: ANGEL BRIGGS Rep #: [id number] : 1935 82 From: Maura Bradshaw DO PCP: Roc Martinez MD Status: DIS IN Y Location: [facility] [id number] Consultation - Renal 08/30/18 PCP/ Referring MD: Requesting physician: [] Primary care physician: Roc Martinez MD - History of Present Illness History of Present Illness: The patient is a 82 year old M who for the past several months, has been progressively weak and fatigued. Patient's been having increasing dyspnea on exertion walking short distances. He would become SOB after walking 10 steps. He has COPD with tobacco use history, wears oxygen at home. Patient has a history of heart failure with chronic leg swelling. He is on lasix but cut back his dose a week ago when his swelling improved. He has increased weight gain with swelling. He has difficulty using bathroom due to SOB. He has BPH but denied hesitancy, dribbling. No prior renal US done. Creatinine improved from 2.39 on admit to 1.98 after lasix decreased. His creatinine has been as high as 3.22 on 06/24/18. He has atrial fibrillation but denied chest pain, palpitations. He does get lightheaded when moves too fast. He fell at home and hit his right foot on a cabinet that is red and painful. No fx reported. He denies syncopal episode. Patient presented to the emergency room and was found to have a hemoglobin of 7, down from his baseline of around 9. BNP was elevated at 519. Patient did receive IV Lasix in the emergency room. He received 2u packed red blood cells. He had a BM biopsy few months ago and was diagnosed with MDS followed by hematology. He denied black stools or BRBPR. - Allergies Allergies: Allergies codeine Adverse Reaction (Severe, Verified 08/28/18 12:09) Unknown - Current Medications Current Medications: Current Medications Acetaminophen (Tylenol) 650 mg PO Q6H PRN PRN PRN Reason: Mild Pain (1-3)/Temp > 100.7 F Albuterol Sulfate (Ventolin Aerosols) 2.5 mg INHALATION Q4H PRN PRN PRN Reason: shortness of breath or wheezing Albuterol/Ipratropium (Duoneb) 3 ml INHALATION Q6H.RT [facility] Last Admin: 08/30/18 13:14 Dose: 3 ml Amiodarone HCl (Cordarone) 200 mg PO DAILY [facility] Last Admin: 08/30/18 09:29 Dose: 200 mg Apixaban (Eliquis) 2.5 mg PO BID [facility] Last Admin: 08/30/18 09:29 Dose: 2.5 mg Atorvastatin Calcium (Lipitor) 10 mg PO QHS [facility] Last Admin: 08/29/18 22:11 Dose: 10 mg Dextrose (D50w Syringe) 0 gm IV X1 PRN; Protocol PRN Reason: Hypoglycemia Furosemide (Lasix) 40 mg IV BIDLX [facility] Last Admin: 08/30/18 09:32 Dose: 40 mg Glucagon () 1 mg IM .X1 PRN PRN Reason: Hypoglycemia Guaifenesin (Mucinex) 1,200 mg PO Q12H [facility] Last Admin: 08/30/18 11:10 Dose: 1,200 mg Insulin Human Lispro (Humalog Kwikpen (Bkc)) 0 unit SQ TIDAC [facility]; Protocol Last Admin: 08/30/18 11:10 Dose: 2 units Magnesium Hydroxide (Milk Of Magnesia) 30 ml PO DAILY PRN PRN Reason: Constipation Metoprolol Succinate (Toprol Xl (Beta Daniel)) 25 mg PO BID [facility] Last Admin: 08/30/18 09:30 Dose: 25 mg Multivitamins/Minerals (Multivitamin With Minerals) 1 tablet PO DAILY@0800 [facility] Last Admin: 08/30/18 09:29 Dose: 1 tablet Ondansetron HCl (Zofran) 4 mg IV Q8H PRN PRN PRN Reason: NAUSEA Sodium Chloride () 5 - 15 ml IV UD PRN PRN Reason: SALINE FLUSH Last Admin: 08/29/18 22:11 Dose: 10 ml Tamsulosin HCl (Flomax) 0.4 mg PO DAILY@0830 [facility] Last Admin: 08/30/18 09:29 Dose: 0.4 mg - Past Medical History Past Medical History (Chronic Problems): Chronic Problems (Last Updated 08/29/18 @ 11:40 by Urmila Gardner MD) Respiratory failure (Chronic) Chronic kidney disease (Chronic) Myelodysplastic syndrome (Chronic) Chronic atrial fibrillation (Chronic) Anemia (Chronic) BPH (benign prostatic hyperplasia) (Chronic) Arthritis (Chronic) Essential hypertension (Chronic) Thrombocytopenia (Chronic) MDS (myelodysplastic syndrome), low grade (Chronic) Hyperlipidemia (Chronic) Type 2 diabetes mellitus (Chronic) COPD (chronic obstructive pulmonary disease) (Chronic) - Social History Marital Status: Smoking Status: Former smoker Alcohol: None Drugs: None - Family History Maternal Family History: Family History (Last Reviewed 08/28/18 @ 15:48 by Ray Oakley DO) Mother Cancer, Onset Age: 59 Father Cancer, Onset Age: 44 Brother Cancer, Onset Age: 78 Son CVA (cerebral vascular accident) Diabetes Mother Cancer Review of Systems Constitutional: Reports: Weakness. Denies: Anorexia, Chills, Fever, Fatigue Eyes: Denies: Vision Change HEENT: Denies: Head Aches Cardiovascular: Reports: Edema, Light Headedness, Orthopnea, Paroxysmal Noc. Dyspnea. Denies: Chest Pain, Palpitations, Syncope Respiratory: Reports: Cough, Shortness of breath upon exertion, Wheezing. Denies: Hemoptysis, Pleuritic Pain Gastrointestinal: Denies: Abdominal Pain, Constipation, Diarrhea, Hematemesis, Hematochezia, Nausea, Vomiting Genitourinary: Reports: Frequency. Denies: Dysuria, Hematuria, Hesitancy, Incontinence, Retention, Urgency Musculoskeletal: Reports: - - rt foot pain from trauma, - - BLE edema. Denies: Arm Pain Skin: Reports: Wounds - rt dorsum foot red, tender Neurological: Reports: Balance problems, - - gen weakness Psychiatric: Denies: Anxiety, Depression Hematologic/ Lymphatic: Reports: Anemia - MDS. Denies: Hx of blood clot Patient Problems: Active and Suspected Problems (Last Updated 08/29/18 @ 11:40 by Urmila Gardner MD) Symptomatic anemia (Acute) Contusion of right foot (Acute) Elevated troponin (Acute) (HFpEF) heart failure with preserved ejection fraction (Acute) - Physical Exam General: Alert, Oriented x3, Cooperative, No apparent distress HEENT: PERRLA, EOMI Oral: Dry Mucosa Neck: JVD, Bilateral Lungs: Rhonchi, Wheezes Cardiovascular: Irregular Rate - afib, Murmur Abdomen: Bowel Sounds Present, Soft, Non Tender, Non-Distended, Obese Extremities: Edema - BLE Skin: - - red, tender rt foot Musculoskeletal: No Muscle Wasting Neurological: Cranial nerves II-XII grossly intact Psych/Mental Status: Normal Affect, Appropriate, Alert and oriented to time, place, person, mood and affect Vital Signs Temp Pulse Resp BP Pulse Ox 98.7 F 73 16 109/58 L 95 08/30/18 09:26 08/30/18 11:00 08/30/18 09:26 08/30/18 09:26 08/30/18 09:26 Oxygen Flow Rate (L/min) 2 Oxygen Delivery Method Nasal Cannula Weight: 102.4 kg Body Mass Index (BMI) 32.2 Orthostatic Vital Signs Start: 08/29/18 05:16 Freq: q24h Status: Active Protocol: Activity Type Activity Date Activity User E-Sign Co-Sign Detail Recorded Client Recorded Date Recorded By Document 08/29/18 05:16 DE [id number] 08/29/18 05:26 [place] Orthostatic Vitals Standing -Blood Pressure (90/60-120/80) 125/54 H -Extremity Use Left Arm -Pulse Rate (60-100) 83 Sitting -Blood Pressure (90/60-120/80) 107/53 L Intake and Output for Last 24 Hours Intake Total 1130 / 1130 1240 / 1240 850 / 850 Output Total 1150 / 1150 1600 / 1600 1725 / 1725 Balance -20 / -20 -360 / -360 -875 / -875 Microbiology Past 72 Hours 08/28/18 13:35 Stool Occult Blood ([facility]) - Final Stool Laboratory Tests Past 24 Hrs WBC 4.4 RBC 3.01 L Hgb 8.5 L Hct 27.1 L MCV 90.0 MCH 28.2 MCHC 31.4 L RDW 24.0 H RDW Differential 72.7 H POC Glucose POC Glucose 191 H 116 H 141 H POC Glucose 126 H Clinical Impression(s) from Imaging Studies Chest X-Ray 08/28/18 12:17 IMPRESSION: Left upper lung infiltrate. Electronically Signed: Wing Grubbs MD at 14:09 EST , Service support , Foot X-Ray 08/28/18 12:18 Assessment/Plan All Active Problems (Last Updated 08/29/18 @ 11:40 by Urmila Gardner MD) Symptomatic anemia (Acute) Contusion of right foot (Acute) Elevated troponin (Acute) (HFpEF) heart failure with preserved ejection fraction (Acute) 1. ROMAIN on CKD stage 3 likely hemodynamically mediated from anemia. Baseline creatinine 1.4, up to 3.22 on 06/24/18. Creatinine 2.39 on admit improved to 1.98. Echo with normal LV and RV EF. Mod LAE, and IGOR. Check renal US r/o urinary retention 2. Anemia with MDS, iron stores low. Consider iv iron 3. COPD on home oxygen 4. HTN stable 5. DM2 stable 6. Chronic atrial fibrillation on cordarone, eliquis. Check TSH 7. Hx BPH 8. CHF with preserved EF 09/01/18 1402 <Electronically signed by Maura Bradshaw DO> Date Maura Mares Signature (if applicable): Date CC: Maura Bradshaw DO; Roc Martinez MD Signed TRANSFER TO EXTENDED Observed: 09/01/2018 Status: F Source: [facility] 12:24 PM [facility] REPOSITORY [facility] Medical Records Department [address] [place] [address] Transfer to Extended Care MR#: [id number] Acct: [id number] Name: ANGEL BRIGGS Rep #: [id number] : 1935 82 From: Michael SPENCER PCP: Roc Martinez MD Status: ADM IN ANGEL BRIGGS (Patient) (Health Ins. Claim No.) (Day of Discharge to Facility) Certification of patient admission REQUIRED AT TIME OF ADMISSION. I CERTIFY THAT POST-HOSPITAL ECF SERVICES ARE REQUIRED TO BE GIVEN ON AN IN-PATIENT BASIS BECAUSE OF THE ABOVE NAMED PATIENT'S NEED FOR [facility] CARE ON A CONTINUING BASIS FOR THE CONDITION(S) FOR WHICH HE/SHE WAS RECEIVING IN-PATIENT HOSPITAL SERVICES PRIOR TO HIS/HER TRANSFER TO THE F. 09/01/18 1221 <Electronically signed by Michael SPENCER> Date Michael SPENCER - Diet 08/28/18 17:03 Diet: Cardiac/Low Cholesterol Food consistency:: Regular Liquid Consistency:: Regular/Thin - Routine Orders/Code Status Suppository Type: Dulcolax 10mg Suppository Frequency: Daily PRN O2 Frequency: Continuous Keep PO Greater than or Equal to (%): 89 Routine Lab Work: CBC - 1 week, BMP - 3 days Code Status: Full Code - Wound(s) R Knee Wound Type: Abrasion - Therapies Physical Therapy: Eval and Treat Occupational Therapy: Eval and Treat - Problem/Diagnosis (1) (HFpEF) heart failure with preserved ejection fraction Status: Acute Current Visit: Yes (2) Chronic atrial fibrillation Status: Chronic Current Visit: Yes (3) Chronic kidney disease Status: Chronic Current Visit: Yes (4) Myelodysplastic syndrome Status: Chronic Current Visit: Yes (5) BPH (benign prostatic hyperplasia) Status: Chronic Current Visit: No (6) COPD (chronic obstructive pulmonary disease) Status: Chronic Current Visit: No (7) Essential hypertension Status: Chronic Current Visit: No (8) Hyperlipidemia Status: Chronic Current Visit: No (9) Type 2 diabetes mellitus Status: Chronic Current Visit: No - Allergies/Procedures Done in Hospital Allergies/Adverse Reactions: Allergies codeine Adverse Reaction (Severe, Verified 08/28/18 12:09) Unknown Procedures: None - Type of Care/Length of Stay Estimated LOS: Convalescent Care Less Than 30 days Type of Care Needed: Skilled Rehab Potential: Fair Prognosis: Fair - Additional Orders/Day of Discharge Day of Discharge: 09/01/18 - Dietary and Speech Recommendations Dietitian Recommendations/Changes: Rec diet change to 1800 edgardo Cardiac / low sodium w/ fluid restriction - Follow Up Care Primary Care Physician: Roc Martinez MD [Primary Care Provider] - Please follow up with your Primary Care Physician in: 1-2 weeks Please Follow Up With: Maura Bradshaw DO When: 2 weeks Please Follow Up With: Marcelo Reynolds MD When: 2 weeks 09/01/18 1221 <Electronically signed by Michael SPENCER> Date Michael SPENCER CC: Maura Bradshaw DO; Roc Martinez MD Signed BEDSIDE GLUCOSE Collected: 09/01/2018 Status: F Source: [facility] 11:38 AM [facility] RE[facility]ITORY TYPE CODE TESTS RESULT OUT OF REFERENCE UNITS RANGE LAB L501.080 70-110 mg/dL High BEDSIDE GLU 137 Result Comment: MANAGEMENT OF PATIENT CARE PER NURSING PROTOCOL Performed By: #### L501.080 #### [facility] Point of Care [address] [place] [address] RENAL PROFILE Collected: 09/01/2018 Status: F Source: [place] 8:45 AM [facility] TYPE CODE TESTS RESULT OUT OF RANGE REFERENCE UNITS LAB L501.0100 74-106 mg/dL High GLU 114 Result Comment: Fasting Glucose result from 100 to 125 mg/dL suggests IMPAIRED HOMEOSTASIS per A.D.A. criteria. Please note revised GLUCOSE reference range effective 2017. LAB L501.1000 7-18 mg/dL High BUN 30 LAB L501.1100 0.70-1.30 mg/dL High CREAT,SERUM 1.76 Result Comment: The validity of the calculated GFR AND GFRAA in patients over 70 years has not been determined. Clinical correlation is essential. LAB L501.1110 >60 mL/min Low EST GFR 40 Result Comment: Non- GFR Calc LAB L501.1115 >60 mL/min Low EST GFR - AA 48 Result Comment: GFR Calc LAB L501.1255 ml/min Normal Estimated CRCL 33.99 LAB L501.1300 10-20 RATIO Normal BUN/CRE 17.0 LAB L501.1800 3.2-5. g/dL Normal 0 ALB 3.4 LAB L501.2200 8.5-10 mg/dL Normal .1 CA 8.5 LAB L501.2300 2.5-4. mg/dL Normal 9 PHOS 3.6 LAB L501.5300 136-14 mmol/L Normal 5 NA 138 LAB L501.5600 3.5-5. mmol/L Normal 1 K 4.0 LAB L501.5900 98-107 mmol/L Normal CL 100 LAB L501.6100 21.0-3 mmol/L High 2.0 CO2 33.0 Performed By: #### L500.3600 #### [facility] [address] [place], [place], [address] T4 FREE DIRECT Collected: 09/01/2018 Status: F Source: [place] 8:45 AM [facility] RE[facility]ITORY Order Comment: Comments: ok to add on TYPE CODE TESTS RESULT OUT OF RANGE REFERENCE UNITS LAB L506.0400 0.76-1.46 ng/dL Normal T4 FREE 1.31 DIRECT Performed By: #### L506.0400 #### [facility] [address] [place], [address] BEDSIDE GLUCOSE Collected: 09/01/2018 Status: F Source: [place] 7:04 AM [facility] TYPE CODE TESTS RESULT OUT OF REFERENCE UNITS RANGE LAB L501.080 70-110 mg/dL High BEDSIDE GLU 128 Result Comment: MANAGEMENT OF PATIENT CARE PER NURSING PROTOCOL Performed By: #### L501.080 #### [facility] Point of Care [address] [place] [address] BEDSIDE GLUCOSE Collected: 08/31/2018 Status: F Source: [place] 11:08 PM [facility] TYPE CODE TESTS RESULT OUT OF REFERENCE UNITS RANGE LAB L501.080 70-110 mg/dL High BEDSIDE GLU 148 Result Comment: MANAGEMENT OF PATIENT CARE PER NURSING PROTOCOL Performed By: #### L501.080 #### [facility] Point of Care [address] [place] [address] 12 LEAD ELECTROCARDIOGRAM Observed: 08/31/2018 Status: F Source: [facility] 4:43 PM [facility] RE[facility] Cardiovascular Services [address] [place] [address] 12 Lead EKG 08/28/18 1228 MR#: [id number] Acct: [id number] Name: ANGEL BRIGGS Rep #: [id number] : 1935 82 From: William Moser MD Attending Dr: Jack Coy DO Status: ADM IN Ordering Dr: Kenneth Turner DO Date: 08/28/18 Location: U Sex: M C Admitted: 08/28/18 Test Reason : Blood Pressure : / mmHG Vent. Rate : 075 BPM Atrial Rate : 072 BPM P-R Int : 000 ms QRS Dur : 086 ms QT Int : 398 ms P-R-T Axes : 000 -45 -17 degrees QTc Int : 444 ms Atrial fibrillation Left axis deviation Low voltage QRS Inferior infarct , age undetermined Cannot rule out Anteroseptal infarct , age undetermined Abnormal ECG Confirmed by WILLIAM MOSER MD ([id number]), movie editor QUINN BLAIR ([id number]) on 08/31/2018 4:43:21 PM Referred By: KARISHMA Confirmed By:WILLIAM MOSER MD 08/31/18 1643 Date William Moser MD CC: Roc Martinez MD; Jack Coy DO; Kenneth Turner Signed BEDSIDE GLUCOSE Collected: 08/31/2018 Status: F Source: [place]OSI 4:19 PM [facility] REPOSITORY TYPE CODE TESTS RESULT OUT OF REFERENCE UNITS RANGE LAB L501.080 70-110 mg/dL High BEDSIDE GLU 119 Result Comment: MANAGEMENT OF PATIENT CARE PER NURSING PROTOCOL Performed By: #### L501.080 #### [facility] Point of Care [address] [place] [address] BEDSIDE GLUCOSE Collected: 08/31/2018 Status: F Source: YOSI 11:23 AM [facility] REPOSITORY TYPE CODE TESTS RESULT OUT OF REFERENCE UNITS RANGE LAB L501.080 70-110 mg/dL High BEDSIDE GLU 283 Result Comment: MANAGEMENT OF PATIENT CARE PER NURSING PROTOCOL Performed By: #### L501.080 #### [facility] Point of Care [address] [place] [address] BEDSIDE GLUCOSE Collected: 08/31/2018 Status: F Source: YOS[place] 7:01 AM [facility] REPOSITORY TYPE CODE TESTS RESULT OUT OF REFERENCE UNITS RANGE LAB L501.080 70-110 mg/dL High BEDSIDE GLU 118 Result Comment: MANAGEMENT OF PATIENT CARE PER NURSING PROTOCOL Performed By: #### L501.080 #### [facility] Point of Care [address] [place] [address] BASIC METABOLIC Collected: 08/31/2018 Status: F Source: [place]I PROFILE (BMP) 6:10 AM [facility] REPOSITORY TYPE CODE TESTS RESULT OUT OF RANGE REFERENCE UNITS LAB L501.0100 74-106 mg/dL High GLU 111 Result Comment: Fasting Glucose result from 100 to 125 mg/dL suggests IMPAIRED HOMEOSTASIS per A.D.A. criteria. Please note revised GLUCOSE reference range effective 2017. LAB L501.1000 7-18 mg/dL High BUN 32 LAB L501.1100 0.70-1.30 mg/dL High CREAT,SERUM 1.93 Result Comment: The validity of the calculated GFR AND GFRAA in patients over 70 years has not been determined. Clinical correlation is essential. LAB L501.1110 >60 mL/min Low EST GFR 36 Result Comment: Non- GFR Calc LAB L501.1115 >60 mL/min Low EST GFR - AA 43 Result Comment: GFR Calc LAB L501.1255 ml/min Normal Estimated CRCL 30.99 LAB L501.1300 10-20 RATIO Normal BUN/CRE 16.6 LAB L501.2200 8.5-10 mg/dL Low .1 CA 8.4 LAB L501.5300 136-14 mmol/L Normal 5 NA 139 LAB L501.5600 3.5-5. mmol/L Normal 1 K 4.0 LAB L501.5900 98-107 mmol/L Normal CL 102 LAB L501.6100 21.0-3 mmol/L Normal 2.0 CO2 32.0 LAB L501.6200 5-15 Normal GAP 5 Performed By: #### L500.2500, L501.9520 #### [facility] [address] [place], [place], [address] THYROID STIM HORMONE Collected: 08/31/2018 Status: F Source: YOSI (TSH) 6:10 AM [facility] REPOSITORY TYPE CODE TESTS RESULT OUT OF RANGE REFERENCE UNITS LAB L501.9520 0.358-3.74 uIU/mL High TSH 4.53 Performed By: #### L500.2500, L501.9520 #### [facility] [address] [place], [address] CBC W/DIFF, AUTOMATED Collected: 08/31/2018 Status: F Source: YOSI 6:10 AM [facility] REPOSITORY TYPE CODE TESTS RESULT OUT OF RANGE REFERENCE UNITS LAB L100.1000 4.4-11.0 K/mm3 Low WBC 3.9 LAB L100.1200 4.6-6.2 M/mm3 Low RBC 2.95 LAB L100.1300 13.0-16.5 g/dl Low HGB 8.2 LAB L100.1400 40-54 % Low HCT 26.7 LAB L100.1500 80-94 fL Normal MCV 90.5 LAB L100.1600 27.0-32.0 pg Normal MCH 27.8 LAB L100.1700 32-36 g/gl Low MCHC 30.7 LAB L100.1810 11.6-14.6 % High RDW CV 23.7 LAB L100.1820 35.1-43.9 fl High RDW SD 72.4 LAB L100.1900 150-450 K/mm3 Low PLT 73 LAB L100.2100 47-70 % High NEUT% 74.1 LAB L100.2200 19-41 % Normal LY% 24.0 LAB L100.2300 0-10 % Normal MONO% 0.0 LAB L100.2400 0-5 % Normal EO% 0.8 LAB L100.2500 0-1 % Normal BASO% 0.3 LAB L100.2550 0.0-0.9 % Normal IM GRAN % 0.800 Result Comment: IG% - Immature Granulocytes (promyelocytes, myelocytes and metamyelocytes) > 1% indicates that a LEFT SHIFT is Present. LAB L100.2620 2.0-7.7 X10 3/uL Absolute Neut Normal 2.9 LAB L100.2720 0.83-4.51 X10 3/ul Absolute Lymph Normal 0.94 LAB L100.4500 SMEAR COMMENT Normal SCAN LAB L100.5500 ADEQ PLT EST Normal MOD DEC LAB L100.5650 PLT MORPH Normal LARGE LAB L100.7300 ANISO Normal 2+ LAB L100.7500 POLYCHROMASIA Normal 1+ LAB L100.7600 HYPOCHROMASIA Normal 1+ LAB L100.7700 MICROCYTES Normal 1+ LAB L100.8400 SCHISTOCYTES Normal RARE LAB L100.8700 TEAR DROP Normal 1+ Performed By: #### L100.0100 #### [facility] [place], [address] Observed: 08/31/2018 Status: F Source: YOSI CULTURE, SPUTUM 12:00 AM [facility] REPOSITORY Gram Stain Gram Stain 2+ Gram positive cocci Rare Epithelial cells 1+ White Blood Cells Resp. Culture Mixed normal respiratory jordan. No Haemophilus, Streptococcus pneumoniae, beta-hemolytic Streptococcus or Staphylococcus aureus isolated. Performed By: #### M100.0800 #### [facility] [address] [place], [address] BEDSIDE GLUCOSE Collected: 08/30/2018 Status: F Source: YOSI 10:52 PM [facility] REPOSITORY TYPE CODE TESTS RESULT OUT OF REFERENCE UNITS RANGE LAB L501.080 70-110 mg/dL High BEDSIDE GLU 158 Result Comment: MANAGEMENT OF PATIENT CARE PER NURSING PROTOCOL Performed By: #### L501.080 #### [facility] Point of Care [address] [place] [address] BEDSIDE GLUCOSE Collected: 08/30/2018 Status: F Source: [place] 4:54 PM [facility] REPOSITORY TYPE CODE TESTS RESULT OUT OF REFERENCE UNITS RANGE LAB L501.080 70-110 mg/dL High BEDSIDE GLU 137 Result Comment: MANAGEMENT OF PATIENT CARE PER NURSING PROTOCOL Performed By: #### L501.080 #### [facility] Point of Care [address] [facility] [place] [address] KIDNEY AND BLADDER Observed: 08/30/2018 Status: F Source: [place] 11:47 AM [facility] REPOSITORY [facility] Imaging Services [address] [place], [place] [address] [address] Kidney and Bladder MR#: [id number] Acct: [id number] Name: ANGEL BRIGGS Rep #: [id number] : 1935 M 82 From: Chai Banks MD PCP: Roc Martinez MD Status: ADM IN Study: Kidney and Bladder Date of Exam: 08/30/18 Exam# [id number] Ordering Dr: Jack Coy DO STUDY: RENAL ULTRASOUND - COMPLETE REASON FOR EXAM: Male, 82 years old. Chronic kidney disease, abnormal laboratory studies. TECHNIQUE: Ultrasound evaluation of the kidneys was performed with real-time and static monique-scale imaging. COMPARISON: None. FINDINGS: RIGHT KIDNEY: Normal location of the right kidney, which is normal in size. The right kidney measures 9.9 x 5.4 x 6.0 cm. There is borderline increased cortical echogenicity of the right kidney, which could reflect change of long-standing medical renal disease. The renal cortex measures 1.7 cm. There is no right renal mass or cyst. There are no right renal calculi. There is no right hydronephrosis. DISTAL RIGHT URETER: There is non-visualization of the distal right ureter. There is no demonstrated right ureterovesical junction calculus. There is a visualized right ureteral jet. LEFT KIDNEY: Normal location of the left kidney, which is normal in size. The left kidney measures 9.8 x 5.5 x 5.5 cm. There is Increased cortical echogenicity of the left kidney, which could reflect change of long-standing medical renal disease. The renal cortex measures 1.4 cm. There is no left renal mass or cyst. There are no left renal calculi. There is no left hydronephrosis. DISTAL LEFT URETER: There is non-visualization of the distal left ureter. There is no demonstrated left ureterovesical junction calculus. There is no demonstrated left ureteral jet. BLADDER: The distended urinary bladder has a volume of 351.7 ml. There is a diffuse mildly thickened 4 mm wall of the distended bladder. There is no demonstrated mass within the urinary bladder. There are no demonstrated bladder calculi. Incidental note of free fluid/ascites in the right upper quadrant. A very small left pleural effusion is also noted. US/Kidney and Bladder IMPRESSION: 1. Normal size kidneys without hydronephrosis. There is borderline increased cortical echogenicity of the kidneys, which could reflect change of long-standing medical renal disease. 2. Mild mural thickening of the normal capacity urinary bladder. 3. Small volume ascites in the right upper quadrant as well as very small left pleural effusion. Electronically Signed: Ian Banks MD at 17:15 EST , Service support , CC: Roc Martinez MD; Jack Coy DO Customer Relationship Specialist: Signed BEDSIDE GLUCOSE Collected: 08/30/2018 Status: F Source: YOSI 11:08 AM [facility] REPOSITORY TYPE CODE TESTS RESULT OUT OF REFERENCE UNITS RANGE LAB L501.080 70-110 mg/dL High BEDSIDE GLU 191 Result Comment: MANAGEMENT OF PATIENT CARE PER NURSING PROTOCOL Performed By: #### L501.080 #### [facility] Point of Care [address] [place] [address] BEDSIDE GLUCOSE Collected: 08/30/2018 Status: F Source: YOSI 6:41 AM [facility] REPOSITORY TYPE CODE TESTS RESULT OUT OF REFERENCE UNITS RANGE LAB L501.080 70-110 mg/dL High BEDSIDE GLU 116 Result Comment: MANAGEMENT OF PATIENT CARE PER NURSING PROTOCOL Performed By: #### L501.080 #### [facility] Point of Care [address] [place] [address] BASIC METABOLIC Collected: 08/30/2018 Status: F Source: [place] PROFILE (BMP) 5:30 AM [facility] REPOSITORY TYPE CODE TESTS RESULT OUT OF RANGE REFERENCE UNITS LAB L501.0100 74-106 mg/dL High GLU 112 Result Comment: Fasting Glucose result from 100 to 125 mg/dL suggests IMPAIRED HOMEOSTASIS per A.D.A. criteria. Please note revised GLUCOSE reference range effective 2017. LAB L501.1000 7-18 mg/dL High BUN 36 LAB L501.1100 0.70-1.30 mg/dL High CREAT,SERUM 1.98 Result Comment: The validity of the calculated GFR AND GFRAA in patients over 70 years has not been determined. Clinical correlation is essential. LAB L501.1110 >60 mL/min Low EST GFR 35 Result Comment: Non- GFR Calc LAB L501.1115 >60 mL/min Low EST GFR - AA 42 Result Comment: GFR Calc LAB L501.1255 ml/min Normal Estimated CRCL 30.21 LAB L501.1300 10-20 RATIO Normal BUN/CRE 18.2 LAB L501.2200 8.5-10 mg/dL Low .1 CA 8.4 LAB L501.5300 136-14 mmol/L Normal 5 NA 139 LAB L501.5600 3.5-5. mmol/L Normal 1 K 4.3 LAB L501.5900 98-107 mmol/L Normal CL 101 LAB L501.6100 21.0-3 mmol/L Normal 2.0 CO2 32.0 LAB L501.6200 5-15 Normal GAP 6 Performed By: #### L500.2500 #### [facility] [address] [place], [address] CBC W/DIFF, AUTOMATED Collected: 08/30/2018 Status: F Source: YOSI 5:30 AM [facility] REPOSITORY TYPE CODE TESTS RESULT OUT OF RANGE REFERENCE UNITS LAB L100.1000 4.4-11.0 K/mm3 Normal WBC 4.4 LAB L100.1200 4.6-6.2 M/mm3 Low RBC 3.01 LAB L100.1300 13.0-16.5 g/dl Low HGB 8.5 LAB L100.1400 40-54 % Low HCT 27.1 LAB L100.1500 80-94 fL Normal MCV 90.0 LAB L100.1600 27.0-32.0 pg Normal MCH 28.2 LAB L100.1700 32-36 g/gl Low MCHC 31.4 LAB L100.1810 11.6-14.6 % High RDW CV 24.0 LAB L100.1820 35.1-43.9 fl High RDW SD 72.7 LAB L100.1900 150-450 K/mm3 Low PLT 78 LAB L100.2100 47-70 % High NEUT% 70.8 LAB L100.2200 19-41 % Low LY% 13.2 LAB L100.2300 0-10 % High MONO% 14.2 LAB L100.2400 0-5 % Normal EO% 0.7 LAB L100.2500 0-1 % Normal BASO% 0.2 LAB L100.2550 0.0-0.9 % Normal IM GRAN % 0.900 Result Comment: IG% - Immature Granulocytes (promyelocytes, myelocytes and metamyelocytes) > 1% indicates that a LEFT SHIFT is Present. LAB L100.2620 2.0-7.7 X10 3/uL Normal Absolute Neut 3.1 LAB L100.2720 0.83-4.51 X10 3/ul Low Absolute Lymph 0.58 LAB L100.4500 Normal SMEAR COMMENT COMMENT Result Comment: SLIDE SCANNED - LYMPHOPENIA, 1+ ANISO, 1+ RBC FRAGMENTS, 1+ LARGE PLTS. Performed By: #### L100.0100 #### [facility] [address] [place], [address] CHEST 1 VIEW Observed: 08/30/2018 Status: F Source: [place] (PORTABLE) 12:00 AM [facility] REPOSITORY [facility] Imaging Services [address] [place] [address] Chest 1 View (Portable) MR#: [id number] Acct: [id number] Name: ANGEL BRIGGS Rep #: [id number] : 1935 M 82 From: Favian Downing DO PCP: Roc Martinez MD Status: ADM IN Study: Chest 1 View (Portable) Date of Exam: 08/30/18 Exam# [id number] Ordering Dr: Urmila Gardner MD STUDY: X-RAY CHEST REASON FOR EXAM: Male, 82 years old. Shortness of breath. TECHNIQUE: Single AP portable view of the chest. COMPARISON: Chest, August 28, 2018. FINDINGS: Telemetry wires overlie the chest. There is continued elevation of the right hemidiaphragm. Again noted is a left perihilar infiltrate unchanged from the prior exam. There is no demonstrated pleural abnormality. There is mild cardiac enlargement. Normal mediastinum and delroy. Normal visualized pulmonary arteries. There is atherosclerotic calcification of the aortic arch with tortuosity. The thoracic spine is obscured by the mediastinum. Normal visualized ribs, clavicles, and shoulders. There is no demonstrated abnormality of the visualized soft tissue structures of the upper abdomen. RAD/Chest 1 View (Portable) IMPRESSION: Persistent left upper lobe infiltrate without interval change. Electronically Signed: Favian Downing DO at 19:29 EST Tel [phone], Service support , CC: Roc Martinez MD; Urmila Gardner Customer Relationship Specialist: Signed BEDSIDE GLUCOSE Collected: 08/29/2018 Status: F Source: YOSI 10:10 PM [facility] REPOSITORY TYPE CODE TESTS RESULT OUT OF REFERENCE UNITS RANGE LAB L501.080 70-110 mg/dL High BEDSIDE GLU 141 Result Comment: MANAGEMENT OF PATIENT CARE PER NURSING PROTOCOL Performed By: #### L501.080 #### [facility] Point of Care [address] [place] [address] BEDSIDE GLUCOSE Collected: 08/29/2018 Status: F Source: Y[place]I 4:32 PM [facility] REPOSITORY TYPE CODE TESTS RESULT OUT OF REFERENCE UNITS RANGE LAB L501.080 70-110 mg/dL High BEDSIDE GLU 126 Result Comment: MANAGEMENT OF PATIENT CARE PER NURSING PROTOCOL Performed By: #### L501.080 #### [facility] Point of Care [address] [place] [address] HH, HEMOGLOBIN AND Collected: 08/29/2018 Status: F Source: YOSI HEMATOCRIT 11:28 AM [facility] REPOSITORY TYPE CODE TESTS RESULT OUT OF RANGE REFERENCE UNITS LAB L100.1300 13.0-16.5 g/dl Low HGB 7.7 LAB L100.1400 40-54 % Low HCT 24.7 Performed By: #### L100.0600 #### [facility] [address] [place], [address] BEDSIDE GLUCOSE Collected: 08/29/2018 Status: F Source: [place]OSI 11:25 AM [facility] REPOSITORY TYPE CODE TESTS RESULT OUT OF REFERENCE UNITS RANGE LAB L501.080 70-110 mg/dL High BEDSIDE GLU 131 Result Comment: MANAGEMENT OF PATIENT CARE PER NURSING PROTOCOL Performed By: #### L501.080 #### [facility] Point of Care [address] [place] [address] BEDSIDE GLUCOSE Collected: 08/29/2018 Status: F Source: YOSI 6:44 AM [facility] REPOSITORY TYPE CODE TESTS RESULT OUT OF RANGE REFERENCE UNITS LAB L501.080 70-110 mg/dL Normal BEDSIDE GLU 105 Result Comment: MANAGEMENT OF PATIENT CARE PER NURSING PROTOCOL Performed By: #### L501.080 #### [facility] Point of Care [address] [place], [place] [address] BASIC METABOLIC Collected: 08/29/2018 Status: F Source: [place] PROFILE (BMP) 5:00 AM [facility] REPOSITORY TYPE CODE TESTS RESULT OUT OF RANGE REFERENCE UNITS LAB L501.0100 74-106 mg/dL Normal GLU 100 Result Comment: Fasting Glucose result from 100 to 125 mg/dL suggests IMPAIRED HOMEOSTASIS per A.D.A. criteria. Please note revised GLUCOSE reference range effective 2017. LAB L501.1000 7-18 mg/dL High BUN 41 LAB L501.1100 0.70-1.30 mg/dL High CREAT,SERUM 2.20 Result Comment: The validity of the calculated GFR AND GFRAA in patients over 70 years has not been determined. Clinical correlation is essential. LAB L501.1110 >60 mL/min Low EST GFR 31 Result Comment: Non- GFR Calc LAB L501.1115 >60 mL/min Low EST GFR - AA 37 Result Comment: GFR Calc LAB L501.1255 ml/min Normal Estimated CRCL 27.19 LAB L501.1300 10-20 RATIO Normal BUN/CRE 18.6 LAB L501.2200 8.5-10 mg/dL Normal .1 CA 8.7 LAB L501.5300 136-14 mmol/L Normal 5 NA 140 LAB L501.5600 3.5-5. mmol/L Normal 1 K 4.7 LAB L501.5900 98-107 mmol/L Normal CL 103 LAB L501.6100 21.0-3 mmol/L Normal 2.0 CO2 28.0 LAB L501.6200 5-15 Normal GAP 9 Performed By: #### L500.2500 #### [facility] [address] [place], [place], [id number] IRON+IRON BINDING Collected: 08/29/2018 Status: F Source: [place] CAPACITY 5:00 AM [facility] REPOSITORY TYPE CODE TESTS RESULT OUT OF RANGE REFERENCE UNITS LAB L503.6075 250-450 ug/dL TIBC Normal 419 LAB L503.6150 65-175 ug/dL IRON Normal 73 LAB L503.6250 15.0-55.0 % IRON Normal SATURATION 17.4 Performed By: #### L503.6030, L503.6550 #### [facility] [address] [place], [address] FERRITIN Collected: 08/29/2018 Status: F Source: YOSI 5:00 AM [facility] REPOSITORY TYPE CODE TESTS RESULT OUT OF RANGE REFERENCE UNITS LAB L503.6550 26-388 ng/mL Normal FERRITIN 113 Performed By: #### L503.6030, L503.6550 #### [facility] [address] [place], [address] TROPONIN-I Collected: 08/29/2018 Status: F Source: YOSI 12:42 AM [facility] REPOSITORY Order Comment: 'TROP' Serial specimen #1, #2 or #3: 3 TYPE CODE TESTS RESULT OUT OF RANGE REFERENCE UNITS LAB L501.4010 <0.045 ng/mL High 0.074 TROPONIN-I Result Comment: TROPONIN-I EXPECTED VALUES <0.045 Negative 0.045 - 0.590 Consistent with Cardiac Damage > OR = 0.600 Critical Value Not every elevated troponin is indicative of NJ. These values should be used with clinical judgement in examining the patient's clinical picture for diagnosis. To establish a diagnosis of NJ versus myocardial injury, there must be a demonstrated rise and/or fall in the troponin values, in addition to ischemic symptoms, EKG changes, new regional wall motion abnormality, and/or angiographical evidence. PLEASE NOTE: REFERENCE RANGES EDITED 17 Performed By: #### L501.4010 #### [facility] [address] [place], [address] BEDSIDE GLUCOSE Collected: 08/28/2018 Status: F Source: [place] 9:42 PM [facility] REPOSITORY TYPE CODE TESTS RESULT OUT OF REFERENCE UNITS RANGE LAB L501.080 70-110 mg/dL High BEDSIDE GLU 159 Result Comment: MANAGEMENT OF PATIENT CARE PER NURSING PROTOCOL Performed By: #### L501.080 #### [facility] Point of Care [address] [place] [address] TROPONIN-I Collected: 08/28/2018 Status: F Source: [place] 9:30 PM [facility] REPOSITORY Order Comment: 'TROP' Serial specimen #1, #2 or #3: 2 TYPE CODE TESTS RESULT OUT OF RANGE REFERENCE UNITS LAB L501.4010 <0.045 ng/mL High 0.079 TROPONIN-I Result Comment: TROPONIN-I EXPECTED VALUES <0.045 Negative 0.045 - 0.590 Consistent with Cardiac Damage > OR = 0.600 Critical Value Not every elevated troponin is indicative of NJ. These values should be used with clinical judgement in examining the patient's clinical picture for diagnosis. To establish a diagnosis of NJ versus myocardial injury, there must be a demonstrated rise and/or fall in the troponin values, in addition to ischemic symptoms, EKG changes, new regional wall motion abnormality, and/or angiographical evidence. PLEASE NOTE: REFERENCE RANGES EDITED 17 Performed By: #### L501.4010 #### [facility] [address] [place], [address] BEDSIDE GLUCOSE Collected: 08/28/2018 Status: F Source: [place] 5:38 PM [facility] REPOSITORY TYPE CODE TESTS RESULT OUT OF RANGE REFERENCE UNITS LAB L501.080 70-110 mg/dL Normal BEDSIDE GLU 101 Result Comment: MANAGEMENT OF PATIENT CARE PER NURSING PROTOCOL Performed By: #### L501.080 #### [facility] Point of Care [address] [place] [address] HISTORY AND PHYSICAL Observed: 08/28/2018 Status: F Source: [place] EXAM 3:55 PM [facility] REPOSITORY [facility] Medical Records Department [address] [place] [address] History and Physical 08/28/18 1544 MR#: [id number] Acct: [id number] Name: ANGEL BRIGGS Rep #: [id number] : 1935 82 From: Ray Oakley DO PCP: Roc Martinez MD Status: ADM IN Location: [place] [address] Problem List (1) (HFpEF) heart failure with preserved ejection fraction Status: Acute (2) Anemia Status: Acute Qualifiers: Anemia type: unspecified type Qualified Code(s): D64.9 - Anemia, unspecified History of Present Illness Date of Admission: 08/28/18 Chief Complaint: fatigue. weakness. The patient is a 82 year old M who for the past several months, has been just progressively weak and fatigued. Patient's been having increasing dyspnea on exertion walking short distances as well during this time. Patient does have a history of heart failure but stopping his Lasix a week ago. From what I can glean from he and his family that he stopped doing the because it limits his bathroom trips so voluntarily stopped it on his own. He has not weighed himself in a month so is unclear if he is put on any weight but he has noted increased lower extremity edema though his right leg is always chronically bigger than his left. Patient presented to the emergency room and was found to have a hemoglobin of 7, down from his baseline of around 9. BNP was elevated at 519. Patient did receive IV Lasix in the emergency room. Patient also typed and screened and ordered transfusion of 1 red blood cells given his anemia. Patient did have a troponin that was 0.075 but denies any chest pain. Patient did have with sound like a syncopal episode several weeks ago when he was in his kitchen and fell backwards. His foot was underneath a counter and did injure his right foot. X-ray in the emergency room was negative for any fracture. He did sustain bruising to that. Patient has not had further syncopal episodes but does have abnormal sleep patterns which he will one time he awoke with a garbage can in his bed and sleep study tore part to a Fublesenex box. Patient has had these events noted well before recently. [] Past Medical History Past Medical History (Chronic Problems): Chronic Problems (Last Reviewed 07/29/18 @ 13:03 by Monica Curtis) Chronic kidney disease (Chronic) Chronic atrial fibrillation (Chronic) Essential hypertension (Chronic) Respiratory failure (Chronic) Shortness of breath (Chronic) Anemia (Chronic) Thrombocytopenia (Chronic) MDS (myelodysplastic syndrome), low grade (Chronic) Hyperlipidemia (Chronic) Hyperlipemia (Chronic) Type 2 diabetes mellitus (Chronic) COPD (chronic obstructive pulmonary disease) (Chronic) Medical History: Medical History (Last Reviewed 08/28/18 @ 15:47 by Ray Oakley DO) Essential hypertension (Chronic) I10 Atrial fibrillation (Acute) I48.91 Shortness of breath (Chronic) R06.02 Acute on chronic diastolic CHF (congestive heart failure) (Acute) I50.33 Anemia (Chronic) D64.9 Thrombocytopenia (Chronic) D69.6 Pain on swallowing (Acute) R13.10 Premature atrial contractions (Acute) I49.1 MDS (myelodysplastic syndrome), low grade (Chronic) D46.20 Hypotension (Acute) I95.9 Paroxysmal atrial tachycardia (Acute) I47.1 Paroxysmal ventricular tachycardia (Acute) I47.2 Premature ventricular contraction (Acute) I49.3 Palpitations (Acute) R00.2 Hyperlipidemia (Chronic) E78.5 Hyperlipemia (Chronic) E78.5 Type 2 diabetes mellitus (Chronic) E11.9 COPD (chronic obstructive pulmonary disease) (Chronic) J44.9 Bilateral hip pain M25.551, M25.552 Contusion of right knee S80.01XA Inguinal hernia K40.90 Low back pain M54.5 Prepatellar bursitis, right knee M70.41 Thrombocytopenia D69.6 heart catheterization Arthritis M19.90 BPH (benign prostatic hyperplasia) N40.0 BPH (benign prostatic hyperplasia) N40.0 MDS (myelodysplastic syndrome), low grade D46.20 HTN (hypertension) (Inactive) I10 Hypertension (Inactive) I10 Allergies codeine Adverse Reaction (Severe, Verified 08/28/18 12:09) Unknown Home Medications: Ambulatory Orders Medication Instructions Recorded Metformin HCl [Glucophage] 1,000 mg PO DAILY 05/26/18 simvastatin 20 mg tablet 20 mg PO QHS #90 tab 05/31/18 albuterol sulfate HFA 90 1 puff INHALATION Q6H PRN #8.5 g 06/07/18 Surgical History: Surgical History (Last Reviewed 08/28/18 @ 15:47 by Ray Oakley DO) H/O hernia repair Z98.890, Z87.19 History of left hip replacement Z96.642 History of left hip replacement Z96.642 History of hand surgery Z98.890 Lt Lives: With Family Smoking Status: Former smoker Tobacco Use: Non-smoker Alcohol: None Drugs: None - *Family History Maternal Family History: Family History (Last Reviewed 08/28/18 @ 15:48 by Ray Oakley DO) Mother Cancer, Onset Age: 59 Father Cancer, Onset Age: 44 Brother Cancer, Onset Age: 78 Son CVA (cerebral vascular accident) Diabetes Mother Cancer Review of Systems Constitutional: Reports: Malaise, Weakness, Fatigue. Denies: Anorexia, Chills, Fever, Night Sweats Eyes: Denies: Blurred vision, Double vision HEENT: Denies: Head Aches, Sinus Congestion, Sinus Drainage Cardiovascular: Reports: Edema. Denies: Chest Pain, Palpitations Respiratory: Reports: Shortness of Breath, Shortness of breath upon exertion, Sputum production Gastrointestinal: Denies: Abdominal Pain, Nausea, Vomiting Genitourinary: Denies: Dysuria Musculoskeletal: Denies: Joint Pain, Joint Tenderness Skin: Denies: Dryness, Jaundice Neurological: Reports: Balance problems. Denies: Blurred vision, Double vision, Headaches Psychiatric: Denies: Anxiety, Depression Endocrine: Denies: Change in Body Habitus, Heat/ Cold Intolerance Hematologic/ Lymphatic: Denies: Easy Bruising, Easy Bleeding, Hx of blood clot Comment: A 10 point review of systems were negative except as mentioned in the history of present illness and the other review of systems. VTE Information - Inpt Only VTE Present on Admission: No VTE Mechan Device Prophylaxis: None VTE Pharm Prophylaxis ordered?: Yes Patient Problems: Active and Suspected Problems (Last Reviewed 07/29/18 @ 13:03 by Monica Curtis) Symptomatic anemia (Acute) Contusion of right foot (Acute) Elevated troponin (Acute) Myelodysplastic syndrome (Acute) (HFpEF) heart failure with preserved ejection fraction (Acute) Anemia (Acute) - Physical Exam General: Alert, Cooperative, No apparent distress HEENT: Atraumatic, PERRLA, EOMI, Normocephalic, - - No scleral icterus Oral: Moist Mucosa, No Gingival or Mucosal Lesions/ Ulcerations Neck: No Nodes, Thyroid Normal Size and Texture Lungs: Diminished, - - Few bibasilar crackles Cardiovascular: Regular rate, Regular Rhythm, Normal S1, Normal S2, No murmurs Abdomen: Bowel Sounds Present, Soft, Non Tender, Non-Distended, No Hepato-splenomegaly, Obese Extremities: No Calf Tenderness, Edema - 3+ lower extremities Skin: - - Ecchymosis on dorsum of right foot. Musculoskeletal: No Tenderness to Palpation of Joints or Extremities, No Muscle Wasting Neurological: Sensory exam intact to light touch and pain, Coordination normal Psych/Mental Status: Normal Affect, Appropriate Vital Signs Temp Pulse Resp BP Pulse Ox 36.3 C L 64 14 122/64 H 100 08/28/18 12:10 08/28/18 15:08 08/28/18 15:08 08/28/18 15:08 08/28/18 15:08 Oxygen Flow Rate (L/min) 3 Oxygen Delivery Method Nasal Cannula Weight: 100.698 kg Body Mass Index (BMI) 30.9 Microbiology Past 72 Hours 08/28/18 13:35 Stool Occult Blood ([facility]) - Final Stool Laboratory Tests Past 24 Hrs WBC RBC Hgb Hct MCV MCH MCHC RDW RDW Differential Plt Count MPV EKG reviewed and lesion. On telemetry patient was noted to be in normal sinus rhythm. Chest x-ray reviewed and was more consistent with CHF. Read was suggestive of left upper lobe infiltrate but I am more concerned this is actually CHF. Assessment/Plan All Active Problems (Last Reviewed 07/29/18 @ 13:03 by Monica Curtis) Symptomatic anemia (Acute) Contusion of right foot (Acute) Elevated troponin (Acute) Myelodysplastic syndrome (Acute) (HFpEF) heart failure with preserved ejection fraction (Acute) Anemia (Acute) Pulmonary hypertension (Acute) Atrial fibrillation (Acute) Acute on chronic diastolic CHF (congestive heart failure) (Acute) Pain on swallowing (Acute) Premature atrial contractions (Acute) Hypotension (Acute) Paroxysmal atrial tachycardia (Acute) Paroxysmal ventricular tachycardia (Acute) Premature ventricular contraction (Acute) Palpitations (Acute) 1. Acute heart failure with preserved ejection fraction Echo June 01 showed an EF of 60% We will continue with IV Lasix, lisinopril and metoprolol succinate Patient stopped taking his Lasix about a week ago just to minimize his trips to the bathroom Encouraged patient to weigh himself daily upon discharge. Patient did endorse that his primary care doctor told him this as well but he just did not because it appears to be cumbersome for him. 2. Anemia Symptomatic Transfuse 1 unit of packed red blood cells Likely secondary to myelodysplastic syndrome Hemoccult negative in the emergency room 3. Obstructive sleep apnea Patient follow-up for CPAP titration on the of this month Follow-up with Dr. Connolly as outpatient 4. Diabetes mellitus type 2 Given his heart failure, I will hold his metformin Start sliding scale insulin 5. Paroxysmal atrial fibrillation Anticoagulated on Eliquis and on metoprolol succinate Currently in normal sinus rhythm Patient will be on telemetry 6. Syncope X1 that the patient endorses Check orthostatic vital signs Monitor on telemetry 7. DVT prophylaxis with Eliquis 8. Advanced care planning: Discussed CPR, intubation and PEG tube placement with patient. Patient wishes to have all those. Therefore, the patient is full CODE STATUS. Case discussed, with patient's permission, with his family members at bedside. Code Visit Inpatient E AND M: 06794 Init Hosp L3 08/28/18 1555 <Electronically signed by Ray Oakley DO> Date Ray Oakley DO Cosigner Signature: Date (if applicable) CC: Roc Martinez MD; Ray Oakley DO; Marcelo Reynolds MD Signed EMERGENCY DEPARTMENT Observed: 08/28/2018 Status: F Source: [place] SUMMARY 2:53 PM [facility] REPOSITORY [facility] Medical Records Department [address] [place] [address] Emergency Department Summary 08/28/18 1219 MR#: [id number] Acct: [id number] Name: ANGEL BRIGGS Rep #: [id number] : 1935 82 From: Kenneth Peterson PCP: Roc Martinez MD Status: REG ER - ER Visit Summary Date of Service: 08/28/18 Chief Complaint: Right foot injury, weakness, dyspnea History of Present Illness: The patient is a 82 M here with family evaluation of multiple symptoms. Mechanical fall a week ago right foot injury. EMS with a walker. Pain with ambulation. He is on Eliquis for history of A. fib. In addition complains of increasing dyspnea for the past week. Worse with exertion. No chest pain or tightness with this. History of COPD and heart failure on 3 L of oxygen. Reports increased leg swelling over 4 days, reports not taking his Lasix for 5 days. Paperwork a prescription specimen on 20 mg of Lasix twice daily. He is followed by Dr. Reynolds. Occasional cough that is baseline for him. Remote tobacco. Reports falling out of bed 2 days ago states contusion right chest and left lower back. Patient lives alone, family states he is not caring for himself as well. He admits to this. They were working outpatient home health with him. He ambulates with a walker. Physical Examination: General: Alert and oriented 3, no acute distress HEENT: Normocephalic, atraumatic. Moist mucosa membranes Neck: supple, nontender. Cardiovascular: Regular rate and rhythm, no murmurs. Right anterior lower chest wall contusion, no crepitus, nontender. Respiratory: Normal breath sounds, symmetric, no distress Abdomen: Soft, nontender, nondistended Back: No midline tenderness small ecchymosis left lower flank. Extremities: Nontender, 1+ lower extremity bilateral edema, pulses intact 4 Neuro: no focal neurological deficits. Test Results: EKG rate controlled A. fib rate of [address] or T wave changes. Chest x-ray per radiology left upper lobe infiltrate. Right foot x-ray: No fractures, office navicularis noted. White count 3.9, hemoglobin 7, platelets 91. Creatinine 2.39, potassium 5. BNP 519. Troponin 0 0.075. Emergency Department Course and Treatment: Initial history with patient's edema, he has not been taking his Lasix for the last 5 days of 20 mg twice daily. Given 40 mg IV Lasix. Vitals were stable O2 stable on his normal home 3 L. Clinically low suspicion for heart failure exacerbation at this time. With patient's foot injury, x- ray obtained as navicularis per radiology. He is tender more midfoot and not medially. Chest x-ray reporting infiltrate left upper lobe. Initial discussion multiple discussion, patient with no significant cough, occasional phlegm that is baseline for him. He had labs white count 3.9 hemoglobin 7, platelets 91. He has history of myelodysplastic syndrome. Hemoglobin down to units from previous labs. I did perform a rectal exam with brown stools and Hemoccult negative. With patient low hemoglobin and have exertional dyspnea, more concern for symptomatic anemia. Troponin returned 0.075. No chest pains. EKG with stable A. fib. Does have creatinine 2.39 that is chronic, this is in the middle of his previous labs. BNP returned at 519. I did discuss patient's history findings with hospitalist Dr. Estes, does agree with concerns for symptomatic anemia. Will order type and cross 1 unit of blood. Will hold off on antibiotics due to clinically no pneumonia symptoms. He will be admitted to PCU for further management. He is on Eliquis twice a day for his A. fib which will adequately anticoagulate him. Patient and family updated. Treatment Plan: [] Disposition: Admission Impression: 1. Symptomatic anemia 2. Chronic kidney disease 3. Right foot contusion 4. Elevated troponin V. History of myelodysplastic syndrome 6. Chronic atrial fibrillation This note was generated with Kopj[employer] software. It may contain incorrect words, spelling, and punctuation that were not noted in review of the chart prior to signing ED Disposition - Plan for ED Patient: Disposition: Acute Care Hospital [facility] Chief Complaint: General Illness Diagnosis: Symptomatic anemia, Chronic kidney disease, Contusion of right foot, Elevated troponin, Myelodysplastic syndrome, Chronic atrial fibrillation Referrals: Roc Martinez MD [Primary Care Provider] - What to do if you have Problems For any increased pain, shortness of breath, bleeding, nausea or vomiting, chest pain, or any unexpected problems, contact your Primary Care Provider. Call [facility] ([phone]) or report to the closest Emergency Room. Call 911 if necessary. 08/28/18 1456 <Electronically signed by Kenneth Peterson> Date Kenneth Peterson Cosigner Signature (If Indicated): Date CC: Roc Martinez MD TYPE AND SCREEN Collected: 08/28/2018 Status: F Source: [place] 2:50 PM [facility] REPOSITORY Order Comment: CMV NEG? N Number of units to transfuse: 1 Is the EBL >/= 1000ml in adults or >/= 12ml/kg in children? Y Reason for Ordering Blood: Acute Are the blood/blood products to be transfused? Y Is the patient having/had surgery? N Give When? When Ready Irradiated? N Leukodepleted? Y TYPE CODE TESTS RESULT OUT OF RANGE REFERENCE UNITS LAB B10.0800 A Normal BLOOD TYPE GEL POSITIVE LAB B100.4000 Normal Antibody NEGATIVE Screen Performed By: #### B101.7450 #### [facility] [address] [place], [place], [address] RC Collected: 08/28/2018 Status: F Source: [place] 2:50 PM [facility] REPOSITORY TYPE CODE TESTS RESULT OUT OF REFERENCE UNITS RANGE LAB U100.0000 [id number] TRANSFUSED PRODUCT: T AND S with Crossmatch, Red Cells COUNT: 1 Performed By: #### U100.0000 #### [facility] - refer to report for specific site RC Collected: 08/28/2018 Status: F Source: [place] 2:50 PM [facility] REPOSITORY TYPE CODE TESTS RESULT OUT OF REFERENCE UNITS RANGE LAB U100.0000 [id number] TRANSFUSED PRODUCT: T AND S with Crossmatch, Red Cells COUNT: 1 Performed By: #### U100.0000 #### [facility] - refer to report for specific site Observed: 08/28/2018 Status: F Source: [place] STOOL OCCULT BLOOD 1:35 PM [facility]OB REPOSITORY STOB iFOB Occult Blood Negative Performed By: #### M100.7900 #### [facility] [address] [place], [place], [address] CBC W/DIFF, AUTOMATED Collected: 08/28/2018 Status: F Source: [place] 12:30 PM [facility] REPOSITORY TYPE CODE TESTS RESULT OUT OF RANGE REFERENCE UNITS LAB L100.1000 4.4-11.0 K/mm3 Low 3.9 WBC LAB L100.1200 4.6-6.2 M/mm3 Low 2.49 RBC LAB L100.1300 13.0-16.5 g/dl Low 7.0 HGB LAB L100.1400 40-54 % Low 22.9 HCT LAB L100.1500 80-94 fL 92.0 Normal MCV LAB L100.1600 27.0-32.0 pg 28.1 Normal MCH LAB L100.1700 32-36 g/gl Low 30.6 MCHC LAB L100.1810 11.6-14.6 % High 26.3 RDW CV LAB L100.1820 35.1-43.9 fl High 80.9 RDW SD LAB L100.1900 150-450 K/mm3 Low 91 PLT LAB L100.2000 6.2-12.0 fl Test Normal MPV not performed LAB L100.2100 47-70 % High 72.3 NEUT% LAB L100.2200 19-41 % Low 14.0 LY% LAB L100.2300 0-10 % High 10.9 MONO% LAB L100.2400 0-5 % 1.0 Normal EO% LAB L100.2500 0-1 % 0.5 Normal BASO% LAB L100.2550 0.0-0.9 % High 1.300 IM GRAN % Result Comment: IG% - Immature Granulocytes (promyelocytes, myelocytes and metamyelocytes) > 1% indicates that a LEFT SHIFT is Present. LAB L100.2620 2.0-7.7 X10 3/uL Absolute Neut Normal 2.8 LAB L100.2720 0.83-4.51 X10 3/ul Low Absolute Lymph 0.54 LAB L100.5500 ADEQ PLT EST Normal MOD DEC LAB L100.7300 ANISO Normal 1+ LAB L100.7600 HYPOCHROMASIA Normal 1+ LAB L100.8000 ACANTHOCYTE Normal 1+ LAB L100.8400 SCHISTOCYTES Normal 1+ Performed By: #### L100.0100 #### [facility] [address] [place], [address] BASIC METABOLIC Collected: 08/28/2018 Status: F Source: [place] PROFILE (BMP) 12:30 PM [facility] REPOSITORY TYPE CODE TESTS RESULT OUT OF RANGE REFERENCE UNITS LAB L501.0100 74-106 mg/dL High GLU 114 Result Comment: Fasting Glucose result from 100 to 125 mg/dL suggests IMPAIRED HOMEOSTASIS per A.D.A. criteria. Please note revised GLUCOSE reference range effective 2017. LAB L501.1000 7-18 mg/dL High BUN 44 LAB L501.1100 0.70-1.30 mg/dL High CREAT,SERUM 2.39 Result Comment: The validity of the calculated GFR AND GFRAA in patients over 70 years has not been determined. Clinical correlation is essential. LAB L501.1110 >60 mL/min Low EST GFR 28 Result Comment: Non- GFR Calc LAB L501.1115 >60 mL/min Low EST GFR - AA 34 Result Comment: GFR Calc LAB L501.1255 ml/min Normal Estimated CRCL 25.82 LAB L501.1300 10-20 RATIO Normal BUN/CRE 18.4 LAB L501.2200 8.5-10 mg/dL Normal .1 CA 8.6 LAB L501.5300 136-14 mmol/L Normal 5 NA 138 LAB L501.5600 3.5-5. mmol/L Normal 1 K 5.0 LAB L501.5900 98-107 mmol/L Normal CL 103 LAB L501.6100 21.0-3 mmol/L Normal 2.0 CO2 29.0 LAB L501.6200 5-15 Normal GAP 6 Performed By: #### L500.2500, L501.4010 #### [facility] [address] [place], [address] TROPONIN-I Collected: 08/28/2018 Status: F Source: [place] 12:30 PM [facility] REPOSITORY TYPE CODE TESTS RESULT OUT OF RANGE REFERENCE UNITS LAB L501.4010 <0.045 ng/mL High 0.075 TROPONIN-I Result Comment: TROPONIN-I EXPECTED VALUES <0.045 Negative 0.045 - 0.590 Consistent with Cardiac Damage > OR = 0.600 Critical Value Not every elevated troponin is indicative of NJ. These values should be used with clinical judgement in examining the patient's clinical picture for diagnosis. To establish a diagnosis of NJ versus myocardial injury, there must be a demonstrated rise and/or fall in the troponin values, in addition to ischemic symptoms, EKG changes, new regional wall motion abnormality, and/or angiographical evidence. PLEASE NOTE: REFERENCE RANGES EDITED 17 Performed By: #### L500.2500, L501.4010 #### [facility] [address] [place], [address] BNP,B-TYPE NATRIURETIC Collected: 08/28/2018 Status: F Source: [place] PEPTIDE 12:30 PM [facility] REPOSITORY TYPE CODE TESTS RESULT OUT OF RANGE REFERENCE UNITS LAB L503.6620 0-100 pg/mL High B-TYPE 519.7 FANNY PEP Performed By: #### L503.6620 #### [facility] [address] [place], [address] FOOT MIN 3 VIEWS Observed: 08/28/2018 Status: F Source: [place] 12:19 PM [facility] REPOSITORY [facility] Imaging Services [address] [place] [address] Foot min 3 Views MR#: [id number] Acct: [id number] Name: ANGEL BRIGGS Rep #: [id number] : 1935 M 82 From: Epi Mays MD PCP: Roc Martinez MD Status: REG ER Study: Foot min 3 Views Date of Exam: 08/28/18 Exam# [id number] Ordering Dr: Kenneth Turner DO STUDY: X-RAY - RIGHT FOOT CLINICAL: Male, 82 years old. Injury TECHNIQUE: 3 view(s) of the foot. COMPARISON: None. FINDINGS: No definite evidence for acute fractures. Degenerative changes in the first metatarsophalangeal joint. The fifth metatarsal base is within normal limits. There is likely an os navicularis present. Plantar spurring. Spurring in the tarsal bones. Vascular calcifications are seen. Joint space narrowing in the interphalangeal joints. IMPRESSION: No definite evidence for acute fracture seen. There is likely an os navicularis present. Please correlate with point tenderness in this region for subtle fractures Electronically Signed: Epi Mays, at 13:51 EST Tel , Service support , RAD/Foot min 3 Views CC: Roc Martinez MD; Kenneth Turner Customer Relationship Specialist: Signed CHEST PA AND LATERAL Observed: 08/28/2018 Status: F Source: [place] 12:19 PM [facility] REPOSITORY [facility] Imaging Services [address] [place] [address] Chest PA and Lateral MR#: [id number] Acct: [id number] Name: ANGEL BRIGGS Rep #: [id number] : 1935 M 82 From: Wing Grubbs MD PCP: Roc Martinez MD Status: REG ER Study: Chest PA and Lateral Date of Exam: 08/28/18 Exam# [id number] Ordering Dr: Kenneth Turner DO STUDY: X-RAY CHEST REASON FOR EXAM: Male, 82 years old. Shortness of breath. Dyspnea TECHNIQUE: Frontal and lateral views of the chest. COMPARISON: May 26, 2018 FINDINGS: There are monitoring devices. There is elevation the right hemidiaphragm. There is left upper lung airspace consolidation. There is no demonstrated pleural abnormality. There is mild cardiac enlargement. Normal mediastinum and delroy. Normal visualized pulmonary arteries. There is atherosclerotic calcification of the aortic arch with tortuosity. There is demineralization of the osseous structures. Normal visualized ribs, clavicles, and shoulders. There is no demonstrated abnormality of the visualized soft tissue structures of the upper abdomen. RAD/Chest PA and Lateral IMPRESSION: Left upper lung infiltrate. Electronically Signed: Wing Grubbs MD at 14:09 EST , Service support , CC: Roc Martinez MD; Kenneth Turner Customer Relationship Specialist: Signed 12 LEAD EKG PERFORMED Observed: 08/06/2018 Status: F Source: [place] BY [facility] 9:19 AM [facility] REPOSITORY [facility] [address] [place] [address] 12 Lead EKG performed by [facility] 08/06/18917 MR#: [id number] Acct: [id number] Name: ANGEL BRIGGS Rep #: [id number] : 1935 82 From: Marcelo Reynolds MD Attending Dr: Marcelo Reynolds MD Status: DEP [facility] Ordering Dr: Marcelo Reynolds MD Date: 08/06/18 Location: [facility] Sex: M C Admitted: BMS/12 Lead EKG performed by [facility] ECG Report Interpretation Sinus Rhythm -First degree A-V block Left axis deviationLow voltage QRS (limb leads)Poor R wave progressioinAnterior NJ, age undetermined, cannot be excludedABNORMAL Electronically signed on 08/09/2018 at 09:04 by Marcelo Reynolds Software Version 8610 08/09/18908 Date Marcelo Reynolds MD CC: Roc Martinez MD Date Dictated: 08/06/18917 Date Transcribed: 08/06/18917 Customer Relationship Specialist: PM Signed OPERATIVE REPORT Observed: 07/31/2018 Status: F Source: [place] 5:48 AM [facility] REPOSITORY [facility] Medical Records Department [address] [place] [address] Operative Report 07/30/18 1501 MR#: [id number] Acct: [id number] Name: ANGEL BRIGGS Rep #: [id number] : 1935 82 From: Arturo Toro MD PCP: Roc Martinez MD Status: DEP [facility] Y Location: [facility] Problem List (1) Acute on chronic diastolic [...] is an 82-year-old male who presented to [facility] for an elective outpatient cardioversion due to [...] Visit 9xxxx: Other Procedure See Report - [id number] 07/31/18 0548 <Electronically signed by Arturo Toro MD> Date Arturo Toro MD CC: Arturo Toro MD; Roc Martinez MD; Marcelo Reynolds MD Signed OPERATIVE REPORT Observed: 07/30/2018 Status: F Source: [place] 1:46 PM [facility] Medical Records Department [address] [place] [address] Operative Report 07/30/18 1342 MR#: [id number] Acct: [id number] Name: ANGEL BRIGGS Rep #: [id number] : 1935 82 From: Marcelo Reynolds MD PCP: Roc Martinez MD Status: REG [facility] Y Location: [facility] Problem List (1) Atrial fibrillation Status: Acute [...] F Source: [place] PROFILE (BMP) 1:00 PM [facility] [...] GAP 6 Performed By: #### L500.2500 #### [facility] [address] [place], [address] CARDIOLOGY VISIT Observed: 07/29/2018 Status: F Source: [place] REPORT 2:28 PM REPLACED BY [facility] REPOSITORY [facility] [address] [place] [address] OFFICE VISIT Date of Service: 07/29/18 MR#: [id number] Acct: [id number] Name: ANGEL BRIGGS Rep #: [id number] : 1935 Provider: Marcelo Reynolds MD Age/Sex: 82/M Location: [facility] Status: Signed HPI HPI Details: ANGEL BRIGGS, [...] has poor R-wave progression with an anteroseptal NJ pattern of indeterminate age as well as potentially an inferior NJ pattern of indeterminate age. He states he [...] mcg SUBLINGUAL DAILY 07/29/18 [History Confirmed 07/29/18] [facility] Medical History Essential hypertension (Chronic) Atrial fibrillation [...] medical therapy. 3. 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 He has undergone noninvasive and invasive evaluation as noted above. He did not require revascularization therapy. He is continuing medical management. 4. Acute on chronic diastolic CHF (congestive heart failure) I50.33 Plan There are concerns of kiqgc-ei-cpjwptu diastolic mediated CHF. 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 transplanted heart: seneca-cayuga heart Acute on chronic diastolic CHF (congestive [...] EKG PERFORMED Observed: 07/29/2018 Status: F Source: [place] [facility] 1:18 PM [facility] REPOSITORY [address] [place] [address] 12 Lead EKG performed by REECE 07/29/18 1318 MR#: [id number] Acct: [id number] Name: ANGEL BRIGGS Rep #: [id number] : 1935 82 From: Marcelo Reynolds MD Attending Dr: Marcelo Reynolds MD Status: DEP AMB Ordering Dr: Marcelo Reynolds MD Date: 07/29/18 Location: [facility] Sex: M C Admitted: BMS/12 Lead EKG performed by [facility] ECG Report Interpretation Atrial fibrillation Left axis deviationLow voltage QRS (limb leads)Poor R wave progressionAnteroseptal NJ, age undetermined, cannot be excludedInferior NJ, age undetermined, cannot be excluded ABNORMAL Electronically signed on 07/29/2018 at 17:57 by Marcelo Reynolds [employer] Version 8610 07/29/18 1800 Date Marcelo Reynolds MD CC: Roc Martinez MD Date Dictated: 07/29/188 Date Transcribed: 07/29/181317 Customer Relationship Specialist: PM Signed INTERNAL MEDICINE Observed: 07/22/2018 Status: F Source: [place] OFFICE VISIT 10:37 AM [facility] Internal Medicine [address] [place] [address] [place] [address] OFFICE VISIT Date of Service: 07/21/18 MR#: [id number] Acct: [id number] Name: ANGEL BRIGGS Rep #: [id number] : 1935 Provider: Jack Augustin NP Age/Sex: 82/M Location: [facility] Status: Signed Intake Vital Signs07/21/18 Body Mass [...] PO QHS #90 tab 10/15/18 [Rx Confirmed 07/20/18] albuterol sulfate HFA 90 [...] oriented x3 Limitations: mental status not altered [facility] Head: normal to inspection Ears: hearing [...] the lisinopril. This note was generated with Mismi dictation software. It may contain incorrect words, [...] VISIT REPORT Observed: 07/20/2018 Status: F Source: [place] 1:04 PM [facility] REPOSITORY Pulmonary Medicine of [address] [place] [address] OFFICE VISIT Date of Service: 07/20/18 MR#: [id number] Acct: [id number] Name: ANGEL BRIGGS Minor Rep #: [id number] : 1935 Provider: Jenna Gerber Age/Sex: 82/M Location: [facility] Status: Signed Assessment AND Plan 1. DEAN [...] QDAY #1 ea 07/20/18 [Rx Confirmed 07/20/18] [facility] Medical History Atrial fibrillation (Acute) Shortness of [...] CHEST WITHOUT Observed: 07/19/2018 Status: F Source: [place] CONTRAST 7:51 AM [facility] REPOSITORY [facility] Imaging Services [address] [place] [address] Chest without Contrast MR#: [id number] Acct: [id number] Name: ANGEL BRIGGS Rep #: [id number] : 1935 82 From: Francisco Smith MD PCP: Roc Martinez MD Status: REG CLI Study: Chest without Contrast Date of Exam: 07/19/18 Exam# [id number] Ordering Dr: Jasmeet Connolly DO STUDY: CT [...] CC: Jasmeet Connolly D.O.; Roc Martinez MD Customer Relationship Specialist: Signed BASIC METABOLIC Collected: 07/05/2018 Status: F Source: [place] ([facility]) 7:36 AM [facility] [...] GAP 11 Performed By: #### L500.2500 #### [facility] [address] [place], [place], [address] BASIC METABOLIC Collected: 06/24/2018 Status: F Source: [place] ([facility]) 8:51 AM [facility] [...] GAP 11 Performed By: #### L500.2500 #### [facility] [address] [facility] [place], [place], [address] ONCOLOGY VISIT REPORT Observed: 06/22/2018 Status: F Source: [place] 5:11 PM [facility] REPOSITORY [facility] [address] [place] [address] OFFICE VISIT Date of Service: 06/17/18 1415 MR#: [id number] Acct: [id number] Name: BRIGITTEANGEL Minor Rep #: [id number] : 1935 From: Holden Chavarria MD Age/Sex: [...] Chronic Code Visit Office Visits / Consults: 82525 OV L3 Est 06/22/18 1711 <Electronically signed by Hodlen Chavarria MD> Date Holden Chavarria MD Cosigner Signature: Date (if applicable) CC: CARDIOLOGY VISIT Observed: 06/21/2018 Status: F Source: [place] REPORT 5:44 PM [facility] REPOSITORY [facility] [address] [place] [address] OFFICE VISIT Date of Service: 06/21/18 MR#: [id number] Acct: [id number] Name: ANGEL BRIGGS Rep #: [id number] : 1935 Provider: Marcelo Reynolds MD Age/Sex: 82/M Location: [facility] Status: Signed HPI HPI Details: ANGEL BRIGGS, is a 82 M who presents to the office today for outpatient cardiovascular follow-up. As you know he was hospitalized at [facility] recently. He underwent cardiovascular diagnostic studies on [...] PO QHS #90 tab 05/31/18 [Rx Confirmed 06/21/18] albuterol sulfate HFA 90 [...] BID #60 tab 06/21/18 [Rx Confirmed 06/21/18] [facility] Medical History Atrial fibrillation (Acute) Shortness of [...] Observed: 06/21/2018 Status: F Source: [place] [facility] 2:44 PM [facility] REPOSITORY [facility] [address] [place] [address] 12 Lead EKG performed by [facility] 06/21/18 1444 MR#: [id number] Acct: [id number] Name: ANGEL BRIGGS Rep #: [id number] : 1935 82 From: Marcelo Reynolds MD Attending Dr: Marcelo Reynolds MD Status: DEP AMB Ordering Dr: Marcelo Reynolds MD Date: 06/21/18 Location: [facility] Sex: M C Admitted: BMS/12 Lead EKG performed by [facility] ECG Report Interpretation Atrial fibrillation Diffuse low voltage. Poor R wave progressionAnterior NJ, age undetermined, cannot be excludedInferior infarct, age undetermined, cannot be excludedABNORMAL Electronically signed on 06/21/2018 at 18:13 by Marcelo Reynolds Software Version 8610 06/21/18 1814 Date Marcelo Reynolds MD CC: Date Dictated: 06/21/18 1444 Date Transcribed: 06/21/181443 Customer Relationship Specialist: PM Signed INTERNAL MEDICINE Observed: 06/21/2018 Status: F Source: [place] OFFICE VISIT 1:04 PM [facility] Internal Medicine [facility] [place] [address] [place] [address] OFFICE VISIT Date of Service: 06/21/18 MR#: [id number] Acct: [id number] Name: ANGEL BRIGGS Rep #: [id number] : 1935 Provider: Roc Martinez MD Age/Sex: 82/M Location: [facility].[place] Status: Signed Intake Vital Signs06/21/18 Height 5 [...] BID #60 tab 06/21/18 [Rx Confirmed 06/21/18] [facility] Medical History Atrial fibrillation (Acute) Shortness of [...] current management. This note was generated with Mismi dictation software. It may contain incorrect words, spelling, and punctuation that were not noted in checking the note before signing. Plan Detail Other Medications Refilled: Coding Level of Care Code Off vis,est,level 3 Diagnoses Atrial fibrillation I48.91 Shortness of breath R06.02 06/21/18 1304 <Electronically signed by Roc Martinez MD> Date Roc Fofanaignwaldo Signature: Date (if applicable) CC: PULMONARY VISIT REPORT Observed: 06/18/2018 Status: F Source: [place] 9:49 AM [facility] REPOSITORY [facility] [address] [place] [address] OFFICE VISIT Date of Service: 06/18/18 MR#: [id number] Acct: [id number] Name: ANGEL BRIGGS Rep #: [id number] : 1935 Provider: Jasmeet Connolly D.O. Age/Sex: 82/M Location: [facility] Status: Signed Assessment AND Plan 1. Mixed [...] Reason: Order Changed Follow Up 1 Month (CSM) HPI HPI Comments Details: The patient is [...] indication for therapy. The patient has a 36-wtdz-ueka smoking history, having quit completely 30 years ago. He was employed previously working for [employer] and has enjoyed restoring cars on the [...] cardiac catheterization in May 2018 which revealed seneca-cayuga multivessel coronary disease and an ejection fraction [...] atypical pANCA titer and was positive for INDEPENDENT DRIVER antibody. He was subsequently referred to rheumatology. [...] Ox 93 Intake Visit Reasons: per DMB Knife Setter Required: No Accompanied by: Self Allergies codeine [...] Q24H #1 device 06/18/18 [Rx Confirmed 06/18/18] [facility] Medical History Atrial fibrillation (Acute) Shortness of [...] Hypersomnia G47.10 Time Spent (min) 60 06/18/18 0563 <Electronically signed by Jasmeet Connolly DO> Date Jasmeet Connolly Brigidojohnwaldo Signature: Date (if applicable) CC: Roc Martinez MD CBC W/DIFF, AUTOMATED Collected: 06/17/2018 Status: F Source: [place] 1:19 PM [facility] REPOSITORY Order Comment: Reason for Laboratory Test [...] Normal 1+ Performed By: #### L100.0100 #### [facility] [address] [place], [address] COMPREHENSIVE METABOLIC Collected: 06/17/2018 Status: F Source: [facility] 1:19 PM [facility] RE[facility] Order Comment: Reason for Laboratory Test [...] GAP 7 Performed By: #### L500.4050 #### [facility] [address] [place], [address] INTERNAL MEDICINE Observed: 06/14/2018 Status: F Source: [place] OFFICE VISIT 4:31 PM [facility] REPOSITORY [facility] [address] [place] [address] [place] [address] OFFICE VISIT Date of Service: 06/14/18 MR#: [id number] Acct: [id number] Name: ANGEL BRIGGS Rep #: [id number] : 1935 Provider: Roc Martinez MD Age/Sex: 82/M Location: [facility] Status: Signed Intake Vital Signs06/14/18 Height 5 ft 10 in Intake Visit Reasons: 1 WK FU Chief Complaint: Follow-up shortness of breath and hypotension. Is patient in pain?: No Allergies codeine Adverse Reaction (Severe, Verified 06/08/18 13:41) Unknown Medications Metformin HCl [Glucophage] 1,000 mg PO DAILY 05/26/18 [History Confirmed 06/08/18] Tamsulosin HCl [Flomax] 0.4 mg PO DAILY 05/26/18 [History Confirmed 06/08/18] Tiotropium [place] [Spiriva] 1 cap INHALATION DAILY 05/26/18 [History [...] puff INHALATION BID 06/14/18 [History Confirmed 06/14/18] [facility] Medical History Atrial fibrillation (Acute) Shortness of [...] acute distress Orientation: alert, awake, oriented x3 [place] Head: atraumatic, normocephalic Ears: hearing grossly normal [...] states that he followed up with another safety advisor at [place] due to his ongoing concerns. Plan per patient was for another CAT scan and repeat testing however, I encouraged patient to reschedule with Dr. Connolly instead of starting all over with another safety advisor. He is open to this. Advised to call the office with any further questions or concerns. 2. Hypotension I95.9 Plan Stable. No significant drop in blood pressure with increase in Lasix. Continue current management. 3. Atrial fibrillation I48.91 Plan Now in normal sinus rhythm. Rate and rhythm controlled. Continue current management. This note was generated with Kopj[employer]ation software. It may contain incorrect words, spelling, [...] F Source: [place] OFFICE VISIT 1:10 PM [facility] Internal Medicine [address] [place] [address] [place] [address] OFFICE VISIT Date of Service: 06/07/18 MR#: [id number] Acct: [id number] Name: ANGEL BRIGGS Minor Rep #: [id number] : 1935 Provider: Roc Martinez MD Age/Sex: 82/M Location: [facility] Status: Signed Intake Vital Signs06/07/18 Height 5 [...] PO DAILY 05/26/18 [History Confirmed 06/07/18] Tiotropium [place] [Spiriva] 1 cap INHALATION DAILY 05/26/18 [History [...] DAILY #90 tab 06/07/18 [Rx Confirmed 06/07/18] [facility] Medical History Atrial fibrillation (Acute) Shortness of [...] acute distress Orientation: alert, awake, oriented x3 [facility] Head: atraumatic, normocephalic Ears: hearing grossly normal [...] supplemental 02. This was discussed with his safety advisor. Advised to call the office with any [...] will consider midodrine. Will discuss with his quantitative manager. However, he will most definitely benefit from [...] Status: F Source: [place] REPORT 1:53 PM [facility] REPOSITORY [facility] [address] [place] [address] OFFICE VISIT Date of Service: 06/08/18 MR#: [id number] Acct: [id number] Name: ANGEL BRIGGS Rep #: [id number] : 1935 Provider: Ursula Duff MD Age/Sex: 82/M Location: [facility] Status: Signed Intake Intake Visit Reasons: LOW BACK PAIN Is patient in pain?: Yes Pain scale (1-10): 5 Allergies codeine Adverse Reaction (Severe, Verified 06/08/18 13:41) Unknown Medications Guaifenesin [Guaifenesin ER] 1,200 mg PO Q12H 05/26/18 [History Confirmed 06/08/18] Metformin HCl [Glucophage] 1,000 mg PO DAILY 05/26/18 [History Confirmed 06/08/18] Tamsulosin HCl [Flomax] 0.4 mg PO DAILY 05/26/18 [History Confirmed 06/08/18] Tiotropium [place] [Spiriva] 1 cap INHALATION DAILY 05/26/18 [History [...] for low back pain, referred by Dr Martinez. Patient notes that he has had back [...] reviewed and no additional complaints, except [facility] Yes system reviewed and no additional [...] MD HEMOGRAM/DIFF Collected: 06/09/2018 Status: F Source: [facility] 2:58 PM HEALTH SYSTEM REPOSITORY TYPE CODE TESTS RESULT OUT OF REFERENCE UNITS RANGE LAB PLTM(LOIN C) Platelet Morphology Bizarre forms LAB ANISO(SH[place]HA [place]) Anisocytosis Moderate LAB BOY(LOIN C) [place] Cells Moderate LAB ELLIP([place]) Elliptocytosis Few [...] Lymph 1.06 LAB MONON(LOINC) 0.30-0.82 thou/cmm Abs. [place] 0.59 LAB EOSN(LOINC) 0.04-0.54 thou/cmm Abs. Eosin 0.06 LAB BASON(LOINC) 0.01-0.08 thou/cmm Abs. Baso 0.03 Performed By: #### CBCD1 #### [facility] [address] [address] PROGRESS Observed: 06/09/2018 Status: COMPLETED Source: [place] 1:59 PM [facility] REPOSITORY HNO ID: [id number] Author: Sarahy Toussaint Service: (none) Author Type: [...] as available. Patient was recently admitted at [facility], from May 26 - May 29, 2018 [...] No history of dysuria, frequency or incontinence SQUAD LEADER: NA MUSCULOSKELETAL: Negative for joint pain or [...] reviewed by me: OTHER TESTING: Echo:06/03: from [facility] every where CHF Procedure This was a 2D [...] moderately enlarged. Chest xray: CT CHEST:05/04: (from [facility]): Throughout both lungs there are small bilateral [...] noted measuring 2.5 and 21.2 cm PFT:06/03: [facility] Interpretation: Forced expiration spirometry shows a [...] Chronic obstructive pulmonary disease, unspecified COPD type ([facility]) - ICD9: 496, ICD10: J44.9 (primary diagnosis) [...] 4. Chronic diastolic CHF (congestive heart failure) ([facility]) - ICD9: 428.32, 428.0, ICD10: I50.32 Patient was recently admitted at [facility] for acute on chronic diastolic CHF exacerbation and also A. fib with RVR. He follows up with cardiology at [facility]. 5. Thrombocytopenia ([facility]) - ICD9: 287.5, ICD10: D69.6 Has history [...] 2018 CNOV Observed: 06/09/2018 Status: COMPLETED Source: [place] [facility] Visit (PULMGR) ANGEL BRIGGS ([id number]) 1935 M Date Time Provider Department 06/09/18 1:30 PM [facility] PULMGR During your visit today, we recorded the following information about you: Pulse Respiration Blood pressure Weight 72/minute 16/minute 136/67 103.9 kg Height 1.791 m Jodi Blanc Ma 06/09/2018 1:21 PM Signed COPD Assessment Test [...] as available. 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 Chest xray: CT CHEST:05/04: (from [facility]): Throughout both lungs there are small bilateral [...] noted measuring 2.5 and 21.2 cm PFT:06/03: [facility] Interpretation: Forced expiration spirometry shows a [...] Chronic obstructive pulmonary disease, unspecified COPD type ([facility]) - ICD9: 496, ICD10: J44.9 (primary diagnosis) [...] 4. Chronic diastolic CHF (congestive heart failure) ([facility]) - ICD9: 428.32, 428.0, ICD10: I50.32 Patient was recently admitted at [facility] for acute on chronic diastolic CHF exacerbation and also A. fib with RVR. He follows up with cardiology at [facility]. 5. Thrombocytopenia ([facility]) - ICD9: 287.5, ICD10: D69.6 Has history [...] Diagnosis:Chronic obstructive pulmonary disease, unspecified COPD type ([facility]) [J44.9] Other Visit Diagnoses:Lung nodules [R91.8] Ex-smoker [Z87.891] Chronic diastolic CHF (congestive heart failure) ([facility]) [I50.32] Thrombocytopenia ([facility]) [D69.6] Order(s):CBC + DIFF [SQCBCDIF] Order #: [id number] FUTURE OXIMETRY WITH AMBULATION [[id number]] Order #: [id number] FUTURE CT CHEST WO IVCON [2554471] Order #: [id number] FUTURE Prescriptions as of 06/09/2018 Sig: VENTOLIN [...] in this patient's care. Visit Notes: >> Jodi Blanc Ma ThuJun 09, 2018 1:20 PM [...] MIN 4 Observed: 06/08/2018 Status: F Source: [place] 10:18 AM [facility] REPOSITORY [facility] Imaging Services [address] [place] [address] L/S Spine Min 4 Views MR#: [id number] Acct: [id number] Name: ANGEL BRIGGS Rep #: [id number] : 1935 M 82 From: Lakia Cooper PCP: Roc Martinez MD Status: REG CLI Study: L/S Spine Min 4 Views Date of Exam: 06/08/18 Exam# [id number] Ordering Dr: Ursula Duff MD STUDY: X-RAY [...] CC: Roc Martinez MD; Ursula Duff MD Customer Relationship Specialist: Signed INTERNAL MEDICINE Observed: 06/03/2018 Status: F Source: [place] OFFICE VISIT 5:02 PM [facility] Internal Medicine [address] [place] [address] [place] [address] OFFICE VISIT Date of Service: 05/31/18 MR#: [id number] Acct: [id number] Name: ANGEL BRIGGS Rep #: [id number] : 1935 Provider: Roc Martinez MD Age/Sex: 82/M Location: [facility] Status: Signed Intake Vital Signs05/31/18 Height 5 [...] PO DAILY 05/26/18 [History Confirmed 06/01/18] Tiotropium [place] [Spiriva] 1 cap INHALATION DAILY 05/26/18 [History [...] QHS #90 tab 05/31/18 [Rx Confirmed 06/01/18] [facility] Medical History Atrial fibrillation (Acute) Shortness of [...] 2 weeks. This note was generated with Mismi dictation software. It may contain incorrect words, spelling, and punctuation that were not noted in checking the note before signing. Coding Level of Care Code Off vis,est,level 4 Diagnoses Shortness of breath R06.02 Hypotension I95.9 Atrial fibrillation I48.91 06/03/18 6037 <Electronically signed by Roc Martinez MD> Date Roc Fofanaigner Signature: Date (if applicable) CC: 6 MINUTE WALK TEST Observed: 06/03/2018 Status: F Source: [place] 4:18 PM [facility] REPOSITORY [facility] Pulmonary Services/Neurology [address] [place] [address] MR#: [id number] Acct: [id number] Name: ANGEL BRIGGS Rep #: [id number] : 1935 82 From: Arturo Toro MD Referring Dr: Jenna Gerber NP Date: Ordering Dr: Sex: M C Location: PSN PSN 6 Minute Walk Test - 6 Minute Walk Test 6 Minute Walk Test: 6 Minute Walk Test PSN:6-Minute Walk Test Start: 06/03/18 11:12 Freq: Status: Active Protocol: RESP.6MINW Document 06/03/18 11:00 HG (Rec: 06/03/18 11:14 HG [id number]) 6 Minute Walk Test Date Performed 06/03/18 [...] CC: Date Dictated: 06/03/181603 Date Transcribed: 06/03/181603 Customer Relationship Specialist: Arturo Toro Signed PULMONARY FUNCTION Observed: 06/03/2018 Status: F Source: [place] REPORT COMP 5:19 AM [facility] REPOSITORY 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 Connolly, who presents to [facility] for complete pulmonary function tests secondary to [...] Jenna Gerber; Roc Martinez MD Date Dictated: 06/02/18 1453 Date Transcribed: 06/02/181452 Customer Relationship Specialist: JOHN Signed PULMONARY VISIT REPORT Observed: 06/02/2018 Status: F Source: [place] 1:25 PM [facility] REPOSITORY Pulmonary Medicine [address] [place] [address] OFFICE VISIT Date of Service: 06/01/18 MR#: [id number] Acct: [id number] Name: ANGEL BRIGGS Rep #: [id number] : 1935 Provider: Jenna Gerber Age/Sex: 82/M Location: [facility] Status: Signed Assessment AND Plan 1. Chronic [...] confirm a positive TIFFANI as well as INDEPENDENT DRIVER antibody. Referral to rheumatology for further autoimmune [...] ordered. Laboratory Tests TIFFANI Screen Positive H INDEPENDENT DRIVER Antibody 5.6 H Orders Orders: Referrals: 3. [...] follow up after a recent hospitalization at [facility], from May 26 - May 29, 2018 [...] Weight: 233 lb Intake Visit Reasons: COPD Knife Setter Required: No Accompanied by: Self Allergies codeine [...] PO DAILY 05/26/18 [History Confirmed 06/01/18] Tiotropium [place] [Spiriva] 1 cap INHALATION DAILY 05/26/18 [History [...] QHS #90 tab 05/31/18 [Rx Confirmed 06/01/18] [facility] Medical History Atrial fibrillation (Acute) Shortness of [...] ECHOCARDIOGRAM COMPLETE Observed: 06/01/2018 Status: F Source: [place] 4:34 PM [facility] REPOS[facility] Cardi[facility] [place] [address] Echo Complete 05/28/18 0823 MR#: [id number] Acct: [id number] Name: ANGEL BRIGGS Rep #: [id number] : 1935 82 From: William Moser MD Attending Dr: Mic Khan MD Status: DIS IN Ordering Dr: Mason Martinez MD Date: 05/26/18 Location: [facility] Sex: M C Admitted: 05/26/18 Reason [...] Physician: Mic Khan Performed By: Nora Saeed, BRITTNI, RVT 06/01/181632 Date William Moser MD CC: Mic Khan MD; Roc Martinez MD; Mason Martinez M.D. Date Dictated: 05/28/18 0823 Date Transcribed: 06/01/181632 Customer Relationship Specialist: Signed 12 LEAD ELECTROCARDIOGRAM Observed: 05/31/2018 Status: F Source: [place] 4:03 PM [facility]POS[facility] Cardiovascular Services [address] [place] [address] 12 Lead EKG 05/27/18 0415 MR#: [id number] Acct: [id number] Name: ANGEL BRIGGS Rep #: [id number] : 1935 82 From: William Moser MD Attending Dr: Mic Khan MD Status: DIS IN Ordering Dr: Mason Martinez MD Date: 05/27/18 Location: [facility] Sex: M C Admitted: 05/26/18 Test [...] COMPARISON REQUIRED, DATA IS UNCONFIRMED Confirmed by SHELBY CORADO, WILLIAM ([id number]), movie editor QUINN BLAIR ([id number]) on 05/31/2018 4:03:36 PM Referred By: Mic Khan Confirmed By:WILLIAM MOSER MD 05/31/18 1603 Date William Moser MD CC: Mic Khna MD; Roc Martinez MD; Mason Martinez M.D. Signed 12 LEAD ELECTROCARDIOGRAM Observed: 05/31/2018 Status: F Source: [place] 3:52 PM [facility]POS[facility] Cardiovascular Services [address] [place] [address] 12 Lead EKG 05/26/18 1136 MR#: [id number] Acct: [id number] Name: ANGEL BRIGGS Rep #: [id number] : 1935 82 From: William Moser MD Attending Dr: Mic Khan MD Status: DIS IN Ordering Dr: Franklyn Liu MD Date: 05/26/18 Location: [facility] Sex: M C Admitted: 05/26/18 Test [...] ECG Confirmed by WILLIAM MOSER MD ([id number]), movie editor QUINN BLAIR ([id number]) on 05/31/2018 3:52:40 PM Referred By: Mic Khan Confirmed By:WILLIAM MOSER MD 05/31/18 1552 Date William Moser MD CC: Mic Khan MD; Roc Martinez MD; Franklyn Liu MD Signed DISCHARGE SUMMARY Observed: 05/29/2018 Status: F Source: [place] 2:26 PM [facility]POS[facility] Medical Records Department [address] [place] [address] Discharge Summary 05/29/18 1143 MR#: [id number] Acct: [id number] Name: ANGEL BRIGGS Rep #: [id number] : 1935 82 From: Pamela PAYNEC PCP: Roc Martinez MD Status: DIS IN Y Location: [place] [address] <Pamela Conte - Last Filed: 05/29/18 11:56> Discharge Date and Diagnosis Date of Admission: 05/26/18 Date of Discharge: 05/29/18 - Primary Discharge Diagnosis Active and Suspected Problems (Last Reviewed 05/07/18 @ 15:29 by Emliie Marie) 1. Acute on chronic diastolic CHF [...] , Service support , Dr. Reynolds-Cardiology Dr. oCnnolly- Pulmonary Operations: None Procedures: None Summary of [...] [Flomax] 0.4 mg PO DAILY 05/26/18 Tiotropium [place] [Spiriva] 1 cap INHALATION DAILY 05/26/18 Amiodarone [...] at discharge?: Yes Documented LVEF (%): 54 <ArayvesMic - Last Filed: 05/29/18 14:26> Discharge Date [...] H Code Visit Inpatient E AND M: [id number] Disch Hosp 05/29/18 1157 <Electronically signed by Pamela PAYNEC> Date Pamela Conte SHEET METAL FABRICATORLatiaC 05/29/18 1426<Electronically signed by Mic Khan MD> Cosigner Signature (if applicable): Date Mic Khan MD CC: SHEET METAL FABRICATOR-C Pamela Conte; Mic Khan MD; Roc Martinez MD Signed DISCHARGE INSTRUCTION Observed: 05/29/2018 Status: F Source: [place] 11:43 AM [facility]POS[facility] Medical Records Department [address] [place] [address] Instructions for Home/Discharge Instructions 05/29/18 1138 MR#: [id number] Acct: [id number] Name: ANGEL BRIGGS Rep #: [id number] : 1935 82 From: Pamela ROY PCP: [...] [Flomax] 0.4 mg PO DAILY 05/26/18 Tiotropium [place] [Spiriva] 1 cap INHALATION DAILY 05/26/18 Amiodarone [...] 05/29/18 05/29/18 1143 <Electronically signed by Pamela PAYNEC> Date Pamela ROY CC: Shawn Dickson MD; Jasmeet Connolly D.O.; Roc Martinez MD; Yonny Woody MD BEDSIDE GLUCOSE Collected: 05/29/2018 Status: F Source: [place] 11:18 AM [facility] REPOSITORY TYPE CODE TESTS RESULT OUT OF REFERENCE UNITS RANGE LAB L501.080 70-110 mg/dL High BEDSIDE GLU 120 Result Comment: MANAGEMENT OF PATIENT CARE PER NURSING PROTOCOL Performed By: #### L501.080 #### [facility] Laboratory Point of Care [address] [facility] [place] [address] CONSULTATION Observed: 05/29/2018 Status: F Source: [place] 7:43 AM [facility] REPOSIT[facility] Medical Records Department [address] [place] [address] Consultation 05/28/18 0754 MR#: [id number] Acct: [id number] Name: ANGEL BRIGGS Rep #: [id number] : 1935 82 From: Jasmeet Connolly DO PCP: Roc Martinez MD Status: ADM IN Location: [place] [address] Reason for Consult Date of Consultation: 05/28/18 [...] indication for therapy. The patient has a 85-suso-dodl smoking history, having quit completely 30 years ago. He was employed previously working for 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 This note was generated with Mismi dictation software. It may contain incorrect words, [...] hypertension. Code Visit Inpatient E AND M: 09352 Init Hosp L3 05/29/18 0743 <Electronically signed by Jasmeet Connolly DO> Date Jasmeet Connolly DO Cosigner Signature (if applicable): Date CC: Shawn Dickson MD; Mic Khan MD; Jasmeet Connolly D.O.; Roc Martinez MD; Yonny Woody MD Signed CBC W/DIFF, AUTOMATED Collected: 05/29/2018 Status: F Source: [place] 7:20 AM [facility] [...] Normal 1+ Performed By: #### L100.0100 #### [facility] [address] [place], [address] BASIC METABOLIC Collected: 05/29/2018 Status: F Source: [place] PROFILE (BMP) 7:20 AM [facility] [...] GAP 6 Performed By: #### L500.2500 #### [facility] [address] [place], [address] BEDSIDE GLUCOSE Collected: 05/29/2018 Status: F Source: [place] 6:48 AM [facility] REPOSITORY TYPE CODE TESTS RESULT OUT OF REFERENCE UNITS RANGE LAB L501.080 70-110 mg/dL High BEDSIDE GLU 153 Result Comment: MANAGEMENT OF PATIENT CARE PER NURSING PROTOCOL Performed By: #### L501.080 #### [facility] Laboratory Point of Care [address] [place] [address] BEDSIDE GLUCOSE Collected: 05/28/2018 Status: F Source: [place] 9:09 PM [facility] REPOSIT[facility] TYPE CODE TESTS RESULT OUT OF REFERENCE UNITS RANGE LAB L501.080 70-110 mg/dL High BEDSIDE GLU 134 Result Comment: MANAGEMENT OF PATIENT CARE PER NURSING PROTOCOL Performed By: #### L501.080 #### [facility] Laboratory Point of Care [address] [place] [address] BEDSIDE GLUCOSE Collected: 05/28/2018 Status: F Source: [place] 5:18 PM [facility] REPOSIT[facility] TYPE CODE TESTS RESULT OUT OF REFERENCE UNITS RANGE LAB L501.080 70-110 mg/dL High BEDSIDE GLU 143 Result Comment: MANAGEMENT OF PATIENT CARE PER NURSING PROTOCOL Performed By: #### L501.080 #### [facility] Point of Care [address] [place] [address] TIFFANI W/ REFLEX MULT Collected: 05/28/2018 Status: F Source: [place] CONFIRM 1:36 PM [facility] [...] ANTISCLER Normal <0.2 LAB L3410.1200 0.0-0.9 AI INDEPENDENT DRIVER Ab High 5.6 LAB L3410.1300 0.0-0.9 AI [...] Sm (anti-Valera) SLE 15 - 30% --------- INDEPENDENT DRIVER Mixed Connective Tissue Disease 95% (U1 nRNP, SLE 30 - 50% anti-ribonucleoprotein) Polymyositis and/or Dermatomyositis 20% --------- Scl-70 (antiDNA Scleroderma (diffuse) 20 - 35% topoisomerase) Crest 13% --------- Devorah-1 Polymyositis and/or Dermatomyositis 20 - 40% --------- Centromere B Scleroderma - Crest variant 80% Performed at: [facility] [address] [id number] Health Economist: Nico Amezcua PhD, Phone: [phone] Performed By: #### L3100.7283 #### [facility] (refer to report for specific site) refer to report for address and phone number ANCA Collected: 05/28/2018 Status: F Source: [place] 1:36 PM [facility] [...] up testing of positive sera with both VA- 3 and MPO-ANCA enzyme immunoassays. As many [...] 05/28/2018 Status: F Source: [place] 1:36 PM [facility] REPOSITORY TYPE CODE TESTS RESULT OUT OF RANGE REFERENCE UNITS LAB L4600.0100 0-19 units Normal ANTI-CCP 4 [id number] Result Comment: Negative <20 Weak positive 20 - 39 Moderate positive 40 - 59 Strong positive >59 Performed at: [facility] [address] [id number] Health Economist: Nico Amezcua PhD, Phone: [phone] Performed at: [facility] [address] [id number] Health Economist: Stefan Tillman MD, Phone: [phone] Performed By: #### L3300.1200, L4600.0100 #### [facility] (refer to report for specific site) refer to report for address and phone number BEDSIDE GLUCOSE Collected: 05/28/2018 Status: F Source: [place] 11:02 AM [facility] REPOS[facility] TYPE CODE TESTS RESULT OUT OF REFERENCE UNITS RANGE LAB L501.080 70-110 mg/dL High BEDSIDE GLU 191 Result Comment: MANAGEMENT OF PATIENT CARE PER NURSING PROTOCOL Performed By: #### L501.080 #### [facility] Point of Care [address] [place], [place] [id number] BEDSIDE GLUCOSE Collected: 05/28/2018 Status: F Source: [place] 6:50 AM [facility] REPOSITORY TYPE CODE TESTS RESULT OUT OF REFERENCE UNITS RANGE LAB L501.080 70-110 mg/dL High BEDSIDE GLU 120 Result Comment: MANAGEMENT OF PATIENT CARE PER NURSING PROTOCOL Performed By: #### L501.080 #### [facility] Point of Care [address] [place], [place] [address] BASIC METABOLIC Collected: 05/28/2018 Status: F Source: [place] PROFILE (BMP) 6:37 AM [facility] [...] GAP 8 Performed By: #### L500.2500 #### [facility] [address] [place], [place], [id number] MAGNESIUM Collected: 05/28/2018 Status: F Source: [place] 6:37 AM [facility] REPOSITORY TYPE CODE TESTS RESULT OUT OF RANGE REFERENCE UNITS LAB L501.5200 1.6-2.6 mg/dL Normal MG 1.9 Performed By: #### L501.5200 #### [facility] [address] [place], [place], [address] CBC W/DIFF, AUTOMATED Collected: 05/28/2018 Status: C Source: [place] 6:37 AM [facility] [...] as: December Performed By: #### L100.0100 #### [facility] [address] [place], [address] RHEUMATOID FACTOR Collected: 05/28/2018 Status: F Source: [place] 6:37 AM [facility] REPOSIT[facility] TYPE CODE TESTS RESULT OUT OF RANGE REFERENCE UNITS LAB L505.7010 <15 IU/mL Normal RHEUMATOID FAC < 10.0 Performed By: #### L505.7010 #### [facility] [address] [place], [address] BEDSIDE GLUCOSE Collected: 05/27/2018 Status: F Source: [place] 9:00 PM [facility] REPOSIT[facility] TYPE CODE TESTS RESULT OUT OF RANGE REFERENCE UNITS LAB L501.080 70-110 mg/dL Normal BEDSIDE GLU 104 Result Comment: MANAGEMENT OF PATIENT CARE PER NURSING PROTOCOL Performed By: #### L501.080 #### [facility] Point of Care [address] [place] [address] BEDSIDE GLUCOSE Collected: 05/27/2018 Status: F Source: [place] 4:39 PM [facility]POSIT[facility] TYPE CODE TESTS RESULT OUT OF REFERENCE UNITS RANGE LAB L501.080 70-110 mg/dL High BEDSIDE GLU 156 Result Comment: MANAGEMENT OF PATIENT CARE PER NURSING PROTOCOL Performed By: #### L501.080 #### [facility] Point of Care [address] [place] [address] CONSULTATION Observed: 05/27/2018 Status: F Source: [place] 4:22 PM [facility] REPOSITORY [facility] Medical Records Department [address] [place] [address] Consultation 05/27/18 1533 MR#: [id number] Acct: [id number] Name: ANGEL BRIGGS Rep #: [id number] : 1935 82 From: Yonny Woody MD PCP: Roc Martinez MD Status: ADM IN Y Location: [place] [address]-1 - Problem List (1) MDS (myelodysplastic syndrome), [...] Complete Freq: ONCE Protocol: Document 05/26/18 15:18 JJL (Rec: 05/26/18 15:27 [facility] [id number]) BMI Required to complete PMH What is [...] Status: F Source: [place] TIME 12:04 PM [facility] REPOSITORY TYPE CODE TESTS RESULT OUT OF RANGE REFERENCE UNITS LAB L9100.0100 74-137 sec High ACTk CLOT 169 TIME Performed By: #### L9100.0100 #### [facility] Point of Care [address] [place] [address] ACT ACTIVATED CLOTTING Collected: 05/27/2018 Status: F Source: [place] TIME 11:35 AM [facility] REPOSITORY TYPE CODE TESTS RESULT OUT OF RANGE REFERENCE UNITS LAB L9100.0100 74-137 sec High ACTk CLOT 175 TIME Performed By: #### L9100.0100 #### [facility] Point of Care [address] [place] [address] ACT ACTIVATED CLOTTING Collected: 05/27/2018 Status: F Source: [place] TIME 10:38 AM [facility] REPOSIT[facility] TYPE CODE TESTS RESULT OUT OF RANGE REFERENCE UNITS LAB L9100.0100 74-137 sec High ACTk CLOT 186 TIME Performed By: #### L9100.0100 #### [facility] Point of Care [address] [place] [address] ACT ACTIVATED CLOTTING Collected: 05/27/2018 Status: F Source: [place] TIME 9:10 AM [facility]POS[facility] TYPE CODE TESTS RESULT OUT OF RANGE REFERENCE UNITS LAB L9100.0100 74-137 sec High ACTk CLOT 246 TIME Performed By: #### L9100.0100 #### [facility] Point of Care [address] [place] [address] BLOOD GASES BY CPS Collected: 05/27/2018 Status: F Source: [place] 8:05 AM [facility] [...] ISTAT 93 Performed By: #### L9000.0800 #### [facility] Point of Care [address] [place] [address] VENOUS BLOOD GAS Collected: 05/27/2018 Status: F Source: [place] 8:02 AM [facility] [...] 29 ISTAT Performed By: #### L9000.0810 #### [facility] Point of Care [facility] [address] [place], [place] [id number] VENOUS BLOOD GAS Collected: 05/27/2018 Status: F Source: [place] 7:58 AM [facility] [...] 29 ISTAT Performed By: #### L9000.0810 #### [facility] Point of Care [address] [place] [address] VENOUS BLOOD GAS Collected: 05/27/2018 Status: F Source: [place] 7:55 AM [facility] [...] 28 ISTAT Performed By: #### L9000.0810 #### [facility] Point of Care [address] [place] [address] BEDSIDE GLUCOSE Collected: 05/27/2018 Status: F Source: [place] 6:41 AM [facility]POS[facility] TYPE CODE TESTS RESULT OUT OF RANGE REFERENCE UNITS LAB L501.080 70-110 mg/dL Normal BEDSIDE GLU 107 Result Comment: MANAGEMENT OF PATIENT CARE PER NURSING PROTOCOL Performed By: #### L501.080 #### [facility] Point of Care [address] [place] [address] PROTHROMBIN TIME W/INR Collected: 05/27/2018 Status: F Source: [place] 5:55 AM [facility] REPOS[facility] TYPE CODE TESTS RESULT OUT OF RANGE REFERENCE UNITS LAB L300.4150 11.7-14.9 SECONDS High PROTIME 15.6 LAB L300.4200 Normal INR 1.2 Performed By: #### L300.3900, L300.4310 #### [facility] [address] [facility] [address] PARTIAL THROMBOPLAST Collected: 05/27/2018 Status: F Source: [place] TIME 5:55 AM [facility] REPOS[facility] TYPE CODE TESTS RESULT OUT OF RANGE REFERENCE UNITS LAB L300.4310 24.1-36.2 Seconds Normal PTT 33.2 Performed By: #### L300.3900, L300.4310 #### [facility] [address] [place], [address] CBC W/DIFF, AUTOMATED Collected: 05/27/2018 Status: F Source: [place] 5:55 AM [facility] [...] LARGE PLTS. Performed By: #### L100.0100 #### [facility] [address] [place], [address] BASIC METABOLIC Collected: 05/27/2018 Status: F Source: [place] PROFILE ([facility]) 5:55 AM [facility] [...] GAP 5 Performed By: #### L500.2500 #### [facility] [address] [place], [address] URINALYSIS, COMPLETE Collected: 05/27/2018 Status: F Source: [place] 5:45 AM [facility] RE[facility] Order Comment: Order Date: 05/27/18 How [...] URINE SEEN Performed By: #### L400.0001 #### [facility] [address] [facility] [place], [address] EMERGENCY DEPARTMENT Observed: 05/26/2018 Status: F Source: [place] SUMMARY 4:26 PM [facility] REPOSIT[facility] Medical Records Department [address] [place] [address] Emergency Department Summary 05/26/18 1213 MR#: [id number] Acct: [id number] Name: ANGEL BRIGGS Rep #: [id number] : 1935 82 From: Franklyn Liu MD PCP: Roc Martinez MD Status: ADM IN - ER Visit Summary Date of Service: 05/26/18 Chief Complaint: Shortness of breath and leg swelling History of Present Illness: The patient is a 82 M history of hypertension, COPD but not on oxygen and jeg-frsellu-akcfslzvz diabetes. Patient states that he has had [...] renal insufficiency This note was generated with Mismi dictation software. It may contain incorrect words, [...] problems, contact your Primary Care Provider. Call [facility] ([phone]) or report to the closest Emergency Room. Call 911 if necessary. 05/26/18 1626 <Electronically signed by Franklyn Liu MD> Date Franklyn Liu MD Cosigner Signature (If Indicated): Date CC: Roc Martinez MD CONSULTATION Observed: 05/26/2018 Status: F Source: [place] 3:21 PM [facility] Medical Records Department [address] [place] [address] Consultation 05/26/18 1510 MR#: [id number] Acct: [id number] Name: ANGEL BRIGGS Rep #: [id number] : 1935 82 From: Shawn Dickson MD PCP: Roc Martinez MD Status: ADM IN Location: [place] [address] Problem List (1) Paroxysmal ventricular tachycardia Status: [...] quit around 30 years ago after a 45-01-xhry-year smoking history, no known cardiac disease. He [...] % (Auto) 68.6, Lymph % (Auto) 23.9, [place] % (Auto) 6.0, Eos % (Auto) 0.6, [...] PM and 3:30 PM. Code Visit Inpatient E AND M: 13628 Init Hosp L2 05/26/18 1521 <Electronically signed by Shawn Dickson MD> Date Shawn Dickson MD Cosigner Signature (if applicable): Date CC: Shawn Dickson MD; Mic Khan MD; Roc Martinez MD Signed HISTORY AND PHYSICAL Observed: 05/26/2018 Status: F Source: [place] EXAM 3:07 PM [facility] REPOS[facility] Medical Records Department [address] [place] [address] History and Physical 05/26/18 1446 MR#: [id number] Acct: [id number] Name: ANGEL BRIGGS Rep #: [id number] : 1935 82 From: Mason Martinez MD PCP: Roc Martinez MD Status: ADM IN Y Location: [place] [address] Problem List (1) Acute on chronic diastolic [...] Consult cardiology 2. 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 Signed BASIC METABOLIC Collected: 05/26/2018 Status: F Source: [place] PROFILE (BMP) 12:30 PM [facility] [...] 4 Performed By: #### L500.2500, L501.4010 #### [facility] [address] [place], [place], [id number] TROPONIN-I Collected: 05/26/2018 Status: F Source: [place] 12:30 PM [facility] REPOSIT[facility] TYPE CODE TESTS RESULT OUT OF RANGE REFERENCE UNITS LAB L501.4010 <0.045 ng/mL High 0.055 TROPONIN-I Result Comment: TROPONIN-I EXPECTED VALUES <0.045 Negative 0.045 - 0.590 Consistent with Cardiac Damage > OR = 0.600 Critical Value Not every elevated troponin is indicative of NJ. These values should be used with clinical judgement in examining the patient's clinical picture for diagnosis. To establish a diagnosis of NJ versus myocardial injury, there must be a demonstrated rise and/or fall in the troponin values, in addition to ischemic symptoms, EKG changes, new regional wall motion abnormality, and/or angiographical evidence. PLEASE NOTE: REFERENCE RANGES EDITED 17 Performed By: #### L500.2500, L501.4010 #### [facility] [address] [place], [address] CBC W/DIFF, AUTOMATED Collected: 05/26/2018 Status: F Source: [place] 12:30 PM [facility] [...] MOD DEC Performed By: #### L100.0100 #### [facility] [address] [place], [address] BNP,B-TYPE NATRIURETIC Collected: 05/26/2018 Status: F Source: [place] PEPTIDE 12:30 PM [facility] REPOSIT[facility] TYPE CODE TESTS RESULT OUT OF RANGE REFERENCE UNITS LAB L503.6620 0-100 pg/mL High B-TYPE 282.3 FANNY PEP Performed By: #### L503.6620 #### [facility] [address] [facility] [place], [address] CHEST 1 VIEW Observed: 05/26/2018 Status: F Source: [place] (PORTABLE) 11:59 AM [facility] REPOS[facility] Imaging Services [address] [place] [address] Chest 1 View (Portable) MR#: [id number] Acct: [id number] Name: ANGEL BRIGGS Rep #: [id number] : 1935 M 82 From: Juana Schulz MD PCP: Roc Martinez MD Status: ADM IN Study: Chest 1 View (Portable) Date of Exam: 05/26/18 Exam# [id number] Ordering Dr: Franklyn Liu MD STUDY: X-RAY [...] CC: Roc Martinez MD; Franklyn Liu MD Customer Relationship Specialist: Signed INTERNAL MEDICINE Observed: 05/17/2018 Status: F Source: [place] OFFICE VISIT 3:18 PM [facility] Internal Medicine [address] [place] [address] [place] [address] OFFICE VISIT Date of Service: 05/17/18 MR#: [id number] Acct: [id number] Name: ANGEL BRIGGS Rep #: [id number] : 1935 Provider: Roc Martinez MD Age/Sex: 82/M Location: [facility] Status: Signed Intake Vital Signs05/17/18 Height 5 [...] A1C ordered. This note was generated with Kopj[employer]ation software. It may contain incorrect words, spelling, [...] 05/17/2018 Status: C Source: [place] 10:23 AM [facility] [...] as: December Performed By: #### L100.0100 #### [facility] [address] [place], [address] HEMOGLOBIN A1C Collected: 05/17/2018 Status: F Source: [place] 10:23 AM [facility] REPOSITORY TYPE CODE TESTS RESULT OUT OF RANGE REFERENCE UNITS LAB L501.9985 4.2-6.3 % Normal HGB A1C 6.3 Performed By: #### L501.9985 #### [facility] [address] [place], [address] INTERNAL MEDICINE Observed: 05/07/2018 Status: F Source: [place] OFFICE VISIT 4:27 PM [facility] REPOSITORY [facility] [address] [place] [address] [place] [address] OFFICE VISIT Date of Service: 05/07/18 MR#: [id number] Acct: [id number] Name: BRIGITTEAGNEL G Rep #: [id number] : 1935 Provider: Jack Augustin NP Age/Sex: 82/M Location: [facility] Status: Signed Intake Vital Signs05/07/18 Height 5 [...] oriented x3 Limitations: mental status not altered [facility] Head: normal to inspection, normocephalic, atraumatic [...] Shortness of breath R06.02 Bronchitis J40 05/07/18 1627 <Electronically signed by Jack ROY> Date Jack ROY Cosigner Signature: Date (if applicable) CC: CHEST WITHOUT Observed: 05/04/2018 Status: F Source: [place] CONTRAST 9:38 AM [facility] REPOSITORY [facility] Imaging Services [address] [place] [address] Chest without Contrast MR#: [id number] Acct: [id number] Name: BRIGITTEANGEL G Rep #: [id number] : 1935 M 82 From: Shine Dumont DO PCP: Roc Martinez MD Status: REG CLI Study: Chest without Contrast Date of Exam: 05/04/18 Exam# [id number] Ordering Dr: Jack Augustin STUDY: CT CHEST [...] CC: Roc Martinez MD; Jack Augustin NP Customer Relationship Specialist: Signed INTERNAL MEDICINE Observed: 04/29/2018 Status: F Source: [place] OFFICE VISIT 10:29 AM [facility] Internal Medicine [address] [facility] [place] [address] OFFICE VISIT Date of Service: 04/28/18 MR#: [id number] Acct: [id number] Name: ANGEL BRIGGS Rep #: [id number] : 1935 Provider: Jack Augustin NP Age/Sex: 82/M Location: [facility] Status: Signed Intake Vital Signs04/28/18 Height 5 [...] PRN #8.5 g 04/28/18 [Rx Confirmed 04/28/18] [facility] Medical History Premature atrial contractions (Acute) MDS [...] oriented x3 Limitations: mental status not altered [facility] Head: normal to inspection, normocephalic, atraumatic [...] applicable) CC: Observed: 04/29/2018 Status: F Source: [place] CULTURE, SPUTUM 9:19 AM [facility] REPOSITORY Gram Stain Acceptable Specimen? Yes (<25 [...] <=20 S (NF) indicates non-formulary drug at [facility]. Approval by Infectious Disease Specialist required before non-formulary drugs may be ordered and/or dispensed. Performed By: #### M100.0800 #### [facility] [address] [place], [address] CBC W/DIFF, AUTOMATED Collected: 04/28/2018 Status: F Source: [place] 12:45 PM [facility] [...] LARGE PLTS. Performed By: #### L100.0100 #### [facility] [address] [facility] [place], [address] SPINE LUMBAR Observed: 03/25/2018 Status: F Source: [place] (ROUTINE) 12:05 PM [facility] REPOSITORY [facility] Imaging Services [address] [place] [address] Spine Lumbar (Routine) MR#: [id number] Acct: [id number] Name: ANGEL BRIGGS Rep #: [id number] : 1935 M 82 From: Radha Bradshaw MD PCP: Roc Martinez MD Status: REG CLI Study: Spine Lumbar (Routine) Date of Exam: 03/25/18 Exam# [id number] Ordering Dr: Jack Augustin SHEET METAL FABRICATOR-Ashlie STUDY: MRI LUMBAR SPINE WITHOUT CONTRAST REASON [...] CC: Roc Martinez MD; Jack Augustin NP Customer Relationship Specialist: Signed INTERNAL MEDICINE Observed: 03/18/2018 Status: F Source: [place] OFFICE VISIT 10:18 AM [facility] Internal Medicine [address] [place] [address] OFFICE VISIT Date of Service: 03/17/18 MR#: [id number] Acct: [id number] Name: ANGEL BRIGGS Rep #: [id number] : 1935 Provider: Jack Augustin NP Age/Sex: 82/M Location: [facility] Status: Signed Intake Vital Signs03/17/18 Height 5 [...] BID #180 tab 03/11/18 [Rx Confirmed 03/17/18] [facility] Medical History Premature atrial contractions (Acute) MDS [...] lidoderm patch. This note was generated with Mismi dictation software. It may contain incorrect words, [...] VISIT REPORT Observed: 03/17/2018 Status: F Source: [place] 6:21 PM [facility] REPOSITORY [facility] [address] [place] [address]. [place] [address] OFFICE VISIT Date of Service: 03/17/18 1239 MR#: [id number] Acct: [id number] Name: ANGEL BRIGGS Rep #: [id number] : 1935 From: Holden Chavarria MD Age/Sex: [...] Chronic Code Visit Office Visits / Consults: 14493 OV L3 Est 03/17/18 1821 <Electronically signed by Holden Chavarria MD> Date Holden Chavarria MD Cosigner Signature: Date (if applicable) CC: CBC W/DIFF, AUTOMATED Collected: 03/17/2018 Status: F Source: [place] 10:48 AM [facility] REPOSITORY Order Comment: Reason for Laboratory Test [...] PLTS. Performed By: #### L100.0100, L500.4050 #### [facility] [address] [place], [address] COMPREHENSIVE METABOLIC Collected: 03/17/2018 Status: F Source: [facility] 10:48 AM [facility] REPOSITORY Order Comment: Reason for Laboratory Test [...] 8 Performed By: #### L100.0100, L500.4050 #### [facility] [address] [place], [place], [address] BASIC METABOLIC Collected: 02/04/2018 Status: F Source: [place] PROFILE (BMP) 6:00 AM [facility] [...] GAP 7 Performed By: #### L500.2500 #### [facility] [address] [place], [address] MICROALB:CREAT Collected: 02/04/2018 Status: F Source: [place] RATIO,RANDOM UR 6:00 AM [facility] REPOSITORY Order Comment: MIACRE FOR SHEET METAL FABRICATOR AUGUSTIN TYPE CODE TESTS RESULT OUT OF RANGE REFERENCE UNITS LAB L501.1200 NO RANGE EST. mg/dL Normal UR CREAT 132.00 LAB L502.0500 NO RANGE EST. mg/L Normal 147.0 MICROALBUMIN ,UR LAB L502.0600 <30 mg/g CRE mg/g CRE High 111.4 MALB:CREAT Performed By: #### L502.0250 #### [facility] [address] [facility] [place], [address] HEMOGLOBIN A1C Collected: 02/04/2018 Status: F Source: [place] 6:00 AM [facility] REPOSITORY TYPE CODE TESTS RESULT OUT OF RANGE REFERENCE UNITS LAB L501.9985 4.2-6.3 % Normal HGB A1C 5.5 Performed By: #### L501.9985 #### [facility] [address] [facility] [place], [address] INTERNAL MEDICINE Observed: 02/02/2018 Status: F Source: [place] OFFICE VISIT 9:32 AM [facility] REPOSITORY [facility] [address] [place] [address] [place] [address] OFFICE VISIT Date of Service: 02/01/18 MR#: [id number] Acct: [id number] Name: ANGEL BRIGGS Rep #: [id number] : 1935 Provider: Roc Martinez MD Age/Sex: 82/M Location: [facility] Status: Signed Intake Vital Signs02/01/18 Height 5 [...] acute distress Orientation: alert, awake, oriented x3 [place] Head: atraumatic, normocephalic Resp Effort AND Inspection: [...] Stable. A1C ordered. 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 Continue current medication. This note was generated with Mismi dictation software. It may contain incorrect words, [...] SUMMARY (1) Observed: 02/01/2018 Status: F Source: [place] 6:58 PM [facility] REPOSITORY [facility] Physical Therapy [facility] [address] [place] [address] Fax REHABILITATION SERVICES DISCHARGE SUMMARY MR#: [id number] Acct: [id number] Name: ANGEL BRIGGS Rep #: [id number] : 1935 82 From: Donny Bonner PT, Cert. MDT, OCS Referring Dr.: Jack Augustin SHEET METAL FABRICATOR Status: REG RCR Insurance: MEDICARE PART A [...] please feel free to call me at [phone]. Thank you for the referral of this patient. Sincerely, Donny Bonner PT, <Electronically signed by Donny Bonner PT, Cert. T, OCS> 02/01/18 5827 CC: Roc Martinez MD; Jack Augustin NP VALENTIN Signed STRESS REPORT Observed: 01/07/2018 Status: F Source: [place] 9:15 AM [facility] REPOSITORY [facility] Cardiovascular Services [address] [place] [address] MR#: [id number] Acct: [id number] Name: ANGEL BRIGGS Rep #: [id number] : 1935 82 From: Marcelo Reynolds MD [...] 84 %. This note was generated with Kopjraation software. It may contain incorrect words, spelling, and punctuation that were not noted in checking the note before signing. 01/07/18914 <Electronically signed by Marcelo Reynolds MD> Date Marcelo Reynolds MD CC: Roc Martinez MD; Marcelo Reynolds MD Date Dictated: 01/07/18907 Date Transcribed: 01/07/18907 Customer Relationship Specialist: PM Signed INTERNAL MEDICINE Observed: 01/01/2018 Status: F Source: [place] OFFICE VISIT 1:55 PM [facility] Internal Medicine [address] [place] [address] [place] [address] OFFICE VISIT Date of Service: 12/31/17 MR#: [id number] Acct: [id number] Name: ANGEL BRIGGS Rep #: [id number] : 1935 Provider: Roc Martinez MD Age/Sex: 82/M Location: [facility] Status: Signed Intake Vital Signs12/31/17 Height 5 [...] QDAY #60 cap 12/31/17 [Rx Confirmed 12/31/17] [facility] Medical History Premature atrial contractions (Acute) MDS [...] acute distress Orientation: alert, awake, oriented x3 [facility] Head: atraumatic, normocephalic Resp Effort AND [...] R13.10 Type 2 diabetes mellitus E11.9 01/01/18 0035 <Electronically signed by Roc Martinez MD> Date Roc Martinez MD Cosigner Signature: Date (if applicable) CC: RE-EVALUATION - PT (1) Observed: 12/25/2017 Status: F Source: [place] 4:57 PM [facility] REPOSITORY [facility] Physical Therapy [facility] [address] [place] [address] Fax REEVALUATION / MEDICARE RECERTIFICATION PHYSICAL THERAPY MR#: [id number] Acct: [id number] Name: ANGEL BRIGGS Rep #: [id number] : 1935 82 From: Donny Bonner PT, Cert. MDT, OCS Referring Dr.: Jack Augustin SHEET METAL FABRICATOR Status: REG RCR Insurance: MEDICARE PART A B CIGNA Jack Augustin, SHEET METAL FABRICATOR-C, It has been my pleasure to treat [...] do not hesitate to contact me at [phone] by phone or if you have questions or concerns regarding this new plan of care! Sincerely, Donny Bnoner PT, <Electronically signed by Donny Bonner PT, Cert. T, OCS> 12/25/17 2212 CC: Roc Martinez MD; Jack Augustin NP VALENTIN Signed For Medicare only, by signing this I certify the plan of care. Physicians Signature Date CARDIOLOGY VISIT Observed: 12/25/2017 Status: F Source: [place] REPORT 10:56 AM [facility] REPOSITORY [facility] [address] [place] [address] OFFICE VISIT Date of Service: 12/25/17 MR#: [id number] Acct: [id number] Name: ANGEL BRIGGS Rep #: [id number] : 1935 Provider: Marcelo Reynolds MD Age/Sex: 82/M Location: [facility] Status: Signed HPI HPI Details: ANGEL BRIGGS, [...] and poor R-wave progression with an anterior NJ pattern of indeterminate age cannot be excluded and an inferior NJ pattern of indeterminate age cannot be excluded. [...] QPM #60 tab 12/01/17 [Rx Confirmed 12/25/17] [facility] Medical History Premature atrial contractions (Acute) MDS [...] a transthoracic echocardiogram performed on 11/13/2016 at [facility]. According to the report his left ventricle was thought to be normal with an LVEF of 60%. He had mild aortic valve insufficiency. He had an exercise tolerance test/imaging study in the way of a pharmacologic stress nuclear imaging study performed on 10/31/2010 at [facility]. The results are as noted below. IMPRESSION [...] His last Holter monitor was performed at [facility] on 10/29/2016. The results are as noted [...] EKG PERFORMED Observed: 12/25/2017 Status: F Source: [place] BY [facility] 10:36 AM [facility] REPOSITORY [address] [address] 12 Lead EKG performed by [facility] 12/25/17 1034 MR#: [id number] Acct: [id number] Name: ANGEL BRIGGS Rep #: [id number] : 1935 82 From: Marcelo Reynolds MD Attending Dr: Marcelo Reynolds MD Status: DEP AMB Ordering Dr: Marcelo Reynolds MD Date: 12/25/17 Location: [facility] Sex: M C Admitted: [facility]/12 Lead EKG performed by [facility] ECG Report Interpretation Sinus Rhythm Left axis deviationLow voltage QRS Anterior NJ, age undetermined, cannot be excludedInferior NJ, age undetermined, cannot be excludedABNORMAL Electronically signed on 12/25/2017 at 16:54 by Marcelo Reynolds 12/25/17 1655 Date Marcelo Reynolds MD CC: Roc Martinez MD Date Dictated: 12/25/17 1034 Date Transcribed: 12/25/17 103 Customer Relationship Specialist: PM Signed INTERNAL MEDICINE Observed: 12/04/2017 Status: F Source: [place] OFFICE VISIT 8:29 AM [facility] Internal Medicine [address] [place] [address] [place] [address] OFFICE VISIT Date of Service: 12/01/17 MR#: [id number] Acct: [id number] Name: ANGEL BRIGGS Rep #: [id number] : 1935 Provider: Roc Martinez MD Age/Sex: 82/M Location: [facility] Status: Signed Intake Vital Signs12/01/17 Height 5 [...] QDAY #90 tab 12/01/17 [Rx Confirmed 12/01/17] [facility] Medical History Paroxysmal atrial tachycardia (Acute) Paroxysmal [...] Will follow. This note was generated with Mismi dictation software. It may contain incorrect words, [...] VISIT REPORT Observed: 12/01/2017 Status: F Source: [place] 2:04 PM [facility] REPOSITORY [facility] [place] [address] OFFICE VISIT Date of Service: 12/01/17 1318 MR#: [id number] Acct: [id number] Name: ANGEL BRIGGS Rep #: [id number] : 1935 From: Holden Chavarria MD Age/Sex: [...] Chronic Code Visit Office Visits / Consults: 80462 OV L3 Est 12/01/17 1404 <Electronically signed by Holden Chavarria MD> Date Holden Chavarria MD Cosigner Signature: Date (if applicable) CC: CBC W/DIFF, AUTOMATED Collected: 12/01/2017 Status: F Source: [place] 12:18 PM [facility] REPOSITORY Order Comment: Reason for Laboratory Test [...] Normal RARE Performed By: #### L100.0100 #### [facility] [address] [place], [address] COMPREHENSIVE METABOLIC Collected: 12/01/2017 Status: F Source: [place] [facility] 12:02 PM [facility] REPOSITORY Order Comment: Comments: Fasting Comments: Fasting [...] 9 Performed By: #### L500.4050, L500.4100 #### [facility] [address] [place], [address] LIPID PROFILE Collected: 12/01/2017 Status: F Source: [place] 12:02 PM [facility] REPOSITORY Order Comment: Comments: Fasting Comments: Fasting [...] 42 Performed By: #### L500.4050, L500.4100 #### [facility] [address] [place], [address] RE-EVALUATION - PT (1) Observed: 11/24/2017 Status: F Source: [place] 11:03 AM [facility] REPOSITORY [facility] Physical Therapy [facility] [place], [place] [address] Fax REEVALUATION / MEDICARE RECERTIFICATION PHYSICAL THERAPY MR#: [id number] Acct: [id number] Name: ANGEL BRIGGS Rep #: [id number] : 1935 82 From: Donny Bonner PT, Cert. MDT, OCS Referring Dr.: Jack Augustin SHEET METAL FABRICATOR Status: REG RCR Insurance: MEDICARE PART A B ARTURO Augustin, SHEET METAL FABRICATOR-C, SHEET METAL FABRICATOR.BRUNA It has been my pleasure to treat [...] do not hesitate to contact me at [phone] by phone or if you have questions or concerns regarding this new plan of care! Sincerely, Donny Bonner PT, <Electronically signed by Donny Bonner PT, Cert. MDT, OCS> 11/24/17 1103 CC: Roc Martinez MD; Jack Augustin NP VALENTIN Signed For Medicare only, by signing this I certify the plan of care. 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 This note was generated with Kopjraation software. It may contain incorrect words, spelling, and punctuation that were not noted in checking the note before signing. Plan Detail Follow Up 1 Week Coding Level of Care Code Off vis,est,level 3 Diagnoses Hypotension I95.9 Hypertension I10 11/20/17 1710 <Electronically signed by Roc Martinez MD> Date oRc Martinez MD Cosigner Signature: Date (if applicable) CC: PSA,TOTAL- DIAGNOSTIC Collected: 11/13/2017 Status: F Source: [place] 8:46 AM [facility] REPOSITORY TYPE CODE TESTS RESULT OUT OF RANGE REFERENCE UNITS LAB L501.9940 0.0-4.0 ng/mL PSA, Normal DIAGNOSTIC 1.25 Result Comment: This test was performed using the TPSA assay method for the GoodChime! chemistry system. Values obtained with different assay methods cannot be used interchangably. When changing PSA assays in the course of monitoring a patient, additional sequential testing should be carried out to confirm baseline values. Performed By: #### L501.9940 #### [facility] [address] [place], [address] INITAL EVALUATION (1) Observed: 10/26/2017 Status: F Source: [place] - PT 4:29 PM [facility] REPOSITORY [facility] Physical Therapy [facility] [place], [place] [address] Fax REHABILITATION SERVICES INITIAL EVALUATION MR#: [id number] Acct: [id number] Name: ANGEL BRIGGS Rep #: [id number] : 1935 82 From: Donny Bonner PT, Cert. T, OCS Referring Dr.: Jack Augustin SHEET METAL FABRICATOR Status: REG RCR Insurance: MEDICARE PART A B CIGNA Patient's Visit Information ANGEL BRIGGS is a 82 year old M referred to Physical Therapy by Jack Augustin, NOE-Ashlie DIAZ with a diagnosis of . Date of [...] Response: No effect Lumbar Standing: Right Side [place] - Symptoms During Testing: No effect Lumbar Standing: Right Side [place] - Symptoms After Testing: No effect Lumbar Standing: Left Side [place] - Mechanical Response: No effect Lumbar Standing: Left Side [place] - Symptoms During Testing: No effect Lumbar Standing: Left Side [place] - Symptoms After Testing: No effect - [...] to be FAXED BACK to us at [phone] for Medicare purposes. Please let me know if there are questions or concerns regarding this plan of care. Physician Signature: Date: <Electronically signed by Donny Bonner PT, Cert. T, OCS> 10/26/17 5631 CC: Roc Martinez MD; Jack Augustin NP JLRey Signed For Medicare only, by signing this I certify the plan of care. Physicians Signature Date INTERNAL MEDICINE Observed: 10/21/2017 Status: F Source: [place] OFFICE VISIT 8:58 AM [facility] Internal Medicine [address] [place] [address] OFFICE VISIT Date of Service: 10/21/17 MR#: [id number] Acct: [id number] Name: BRIGITTEANGEL G Rep #: [id number] : 1935 Provider: Jack Augustin NP Age/Sex: 82/M Location: [facility].[place] Status: Signed Intake Vital Signs10/21/17 Height 5 [...] QDAY #30 tab 10/21/17 [Rx Confirmed 10/21/17] [facility] Medical History BPH (benign prostatic hyperplasia) (Chronic) [...] hyperlipidemia, myelodysplastic syndrome, type 2 diabetes mellitus ifh-adimcwz-kxumsoorb, BPH, and osteoarthritis. He states that what [...] oriented x3 Limitations: mental status not altered [facility] Head: normal to inspection Ears: hearing [...] taper. He has not been trying any lddv-pni-uciyufr treatments for the pain, discussed taking qxfp-abm-lfwvxhf Tylenol. Patient verbalized understanding. Patient may need [...] in 6-8 weeks or sooner if needed. Sebastián disclaimer Plan Detail Other Medications New: prednisone [...] Status: F Source: [place] REPORT 2:22 PM [facility] REPOSITORY [facility] Orthopaedics AND Sports Medicine [address] [place] [address] [address] [place] [address] OFFICE VISIT Date of Service: 10/09/17 MR#: [id number] Acct: [id number] Name: ANGEL BRIGGS Rep #: [id number] : 1935 Provider: Yoandy Nguyen DO Age/Sex: 82/M Location: [facility] Status: Signed Intake Intake Visit Reasons: right [...] tab PO QDAY 09/25/17 [History Confirmed 10/09/17] [facility] Medical History BPH (benign prostatic hyperplasia) (Chronic) [...] Yoandy Nguyen DO> Date Yoandy Nguyen DO Cosigner Signature: Date (if applicable) CC: ORTHOPEDIC VISIT Observed: 10/07/2017 Status: F Source: [place] REPORT 3:13 PM [facility] REPOSITORY [facility] Orthopaedics AND Sports Medicine [address] [place] [address] OFFICE VISIT Date of Service: 09/25/17 MR#: [id number] Acct: [id number] Name: BRIGITTEANGEL G Rep #: [id number] : 1935 Provider: Yoandy Nguyen DO Age/Sex: 81/M Location: [facility] Status: Signed Intake Vital Signs09/25/17 Body Mass [...] tab PO QDAY 09/25/17 [History Confirmed 09/25/17] [facility] Medical History BPH (benign prostatic hyperplasia) (Chronic) [...] encounter S80.01XA Encounter type: initial encounter 10/07/17 1513 <Electronically signed by Yoandy Nguyen DO> Date Yoandy Nguyen DO Cosigner Signature: Date (if applicable) CC: URGENT CARE VISIT Observed: 09/21/2017 Status: F Source: [place] REPORT 10:09 AM [facility] [place] [address] OFFICE VISIT Date of Service: 09/21/17 MR#: [id number] Acct: [id number] Name: ANGEL BRIGGS Rep #: [id number] : 1935 Provider: David SPENCER Age/Sex: 81/M Location: [facility] Status: Signed Intake Vital Signs09/21/17 Height 5 [...] tab PO QDAY 09/15/17 [History Confirmed 09/21/17] [facility] Medical History BPH (benign prostatic hyperplasia) (Chronic) [...] 1009 <Electronically signed by David SPENCER> Date David SPENCER Cosigner Signature: Date (if applicable) CC: KNEE 3 VIEWS Observed: 09/21/2017 Status: F Source: [place] 9:11 AM [facility] REPOSITORY [facility] Imaging Services [address] [place] [address] Knee 3 Views MR#: [id number] Acct: [id number] Name: ANGEL BRIGGS Rep #: [id number] : 1935 M 81 From: Harpreet Palmer MD PCP: Roc Martinez MD Status: REG CLI Study: Knee 3 Views Date of Exam: 09/21/17 Exam# [id number] Ordering Dr: David Reich STUDY: X-RAY - [...] , CC: Roc Martinez MD; David SPENCER Customer Relationship Specialist: Signed LUMBAR SPINE 2 OR 3 Observed: 09/21/2017 Status: F Source: [place] VIEWS 9:11 AM [facility] REPOSITORY [facility] Imaging Services [address] [place] [address] Lumbar Spine 2 or 3 Views MR#: [id number] Acct: [id number] Name: ANGEL BRIGGS Rep #: [id number] : 1935 M 81 From: Harpreet Palmer MD PCP: Roc Martinez MD Status: REG CLI Study: Lumbar Spine 2 or 3 Views Date of Exam: 09/21/17 Exam# [id number] Ordering Dr: David Reich STUDY: X-RAY - [...] , CC: Roc Martinez MD; David SPENCER Customer Relationship Specialist: Signed HIP 2-3 VIEWS WITH Observed: 09/21/2017 Status: F Source: [place] PELVIS 9:11 AM [facility] REPOSITORY [facility] Imaging Services [address] [place] [address]30 Hip 2-3 Views with Pelvis MR#: [id number] Acct: [id number] Name: ANGEL BRIGGS Rep #: [id number] : 1935 81 From: Harpreet Palmer MD PCP: Roc Martinez MD Status: REG CLI Study: Hip 2-3 Views with Pelvis Date of Exam: 09/21/17 Exam# [id number] Ordering Dr: David Reich STUDY: X-RAY - [...] , CC: Roc Martinez MD; David SPENCER Customer Relationship Specialist: Signed INTERNAL MEDICINE Observed: 09/15/2017 Status: F Source: [place] OFFICE VISIT 1:45 PM [facility] Internal Medicine [facility] [place] [address] OFFICE VISIT Date of Service: 09/15/17 MR#: [id number] Acct: [id number] Name: ANGEL BRIGGS Rep #: [id number] : 1935 Provider: Jack Augustin NP Age/Sex: 81/M Location: [facility] Status: Signed Intake Vital Signs09/15/17 Height 5 [...] tab PO QDAY 09/15/17 [History Confirmed 09/15/17] [facility] Medical History Thrombocytopenia (Chronic) Arthritis (Chronic) Hyperlipemia [...] hyperlipidemia, myelodysplastic syndrome, type 2 diabetes mellitus vpq-jyxldaq-tryeoevnt, BPH, and osteoarthritis. 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 5. Thrombocytopenia D69.6 Plan Deferred to [facility]. 6. Type 2 diabetes mellitus [...] J44.9 09/15/17 1345 <Electronically signed by Jack Augustin SHEET METAL FABRICATOR-C> Date Jack Augustin SHEET METAL FABRICATOR-C Cosigner Signature: Date (if applicable) CC: HEMOGLOBIN A1C Collected: 09/15/2017 Status: F Source: [place] 11:33 AM [facility] REPOSITORY TYPE CODE TESTS RESULT OUT OF RANGE REFERENCE UNITS LAB L501.9985 4.2-6.3 % Normal HGB A1C 5.7 Performed By: #### L501.9985 #### [facility] Laboratory [address] [place], [address] MICROALB:CREAT Collected: 09/15/2017 Status: F Source: [place] RATIO,RANDOM UR 11:33 AM [facility] REPOSITORY TYPE CODE TESTS RESULT OUT OF RANGE REFERENCE UNITS LAB L501.1200 NO RANGE EST. mg/dL Normal UR CREAT 241.00 LAB L502.0500 NO RANGE EST. mg/L Normal 136.0 MICROALBUMIN ,UR LAB L502.0600 <30 mg/g CRE mg/g CRE High 56.4 MALB:CREAT Performed By: #### L502.0250 #### [facility] [address] [place], [address] ALLERGIES ALLERGIES DATE TYPE / CODE NAME / CODE REACTION SEVERITY SOURCE 08/28/2018 Drug codeine/A58446 Unknown [facility] Allergy/4160 1550(RXNORM) [facility] [address](SNOMED Repository CT) 09/27/2007 DRUG CODEINE UNKNOWN [facility] INGREDI/[address] [facility] [address](SNOMED Repository CT) /[id number] CODEINE [facility] (SNOMED CT) [facility] Repository ENCOUNTERS ENCOUNTERS ADMIT/DISCHARGE ACCOUNT NUMBER ADMITTING ENCOUNTER LOCATION SOURCE CLASS 09/08/2018 [id number] Ambulatory [facility] ding:OLS.AVE Repository B 09/07/2018 [id number] Ambulatory [facility] ding:[place] Repository B 09/04/2018 [id number] Ambulatory [facility] ding:OLS.AVE Repository B 08/28/2018/09/01/19 [id number] Ray Oakley Inpatient [address] ding:PCURoom Repository : [id number]: 1 08/28/2018 [id number] Ray Oakley Ambulatory BMSBuilding: [place] [facility]MS.[facility] Repository 08/28/2018 [id number] Ray Oakley Ambulatory BMSBuilding: [place] [facility]MS.[facility] Repository 08/28/2018 [id number] Ray Oakley Ambulatory [facility]: [facility] Repository 08/28/2018 [id number] Ray Oakley Ambulatory BMSBuilding: [place] [facility]MS.[facility] Repository 08/28/2018 [id number] Ray Oakley Ambulatory BMSBuilding: [place] [facility]MS.[facility] Repository 08/19/2018 [id number] Ambulatory [facility] ding: Repository 08/06/2018/08/06/20 [id number] Ambulatory BMSBuilding: [facility] 18 BMS.[facility] Repository 07/30/2018 [id number] Ambulatory BMSBuilding: [facility] BMS.CF.[facility] Repository 07/30/2018 [id number] Ambulatory BMSBuilding: [place] BMS.CF.[facility] Repository 07/30/2018/07/30/20 [id number] Ambulatory [address] [facility] 07/29/2018/07/29/20 [id number] Ambulatory BMSBuilding: [facility] 18 BMS.[facility] Repository 07/21/2018/07/21/20 [id number] Ambulatory BMSBuilding: [facility] 18 BMS.[facility] Repository 07/20/2018/07/20/20 [id number] Ambulatory BMSBuilding: [facility] 18 BMS.[facility] Repository 07/19/2018 [id number] Ambulatory [facility] ding:CT Repository 07/05/2018 [id number] Ambulatory [facility] ding:LAB Repository 06/24/2018 [id number] Ambulatory [facility] ding:LAB Repository 06/21/2018/06/21/20 [id number] Ambulatory BMSBuilding: [facility] 18 BMS.[facility] Repository 06/21/2018/06/21/20 [id number] Ambulatory BMSBuilding: [facility] 18 BMS.[facility] Repository 06/18/2018/06/18/20 [id number] Ambulatory BMSBuilding: [place] 18 BMS.[facility] Repository 06/17/2018 [id number] Ambulatory BMSBuilding: [place] BMS.CF.[facility] Repository 06/17/2018 [id number] Ambulatory [facility] ding:OMD Repository 06/14/2018/06/14/20 [id number] Ambulatory BMSBuilding: [place] 18 BMS.[facility] Repository 06/09/2018 [id number] Ambulatory [facility] Repository 06/09/2018/06/09/20 [id number] Ambulatory [address] MEDICAL Repository CENTERBuildi ng:AKLBG 06/09/2018/06/09/20 [id number] Ambulatory [address] Repository 06/09/2018/06/09/20 [id number] Ambulatory [address] Repository 06/08/2018 [id number] Ambulatory [facility] ding:HPRAD Repository 06/08/2018/06/08/20 [id number] Ambulatory BMSBuilding: [place] 18 BMS.[facility] Repository 06/07/2018/06/07/20 [id number] Ambulatory BMSBuilding: [facility] 18 BMS.[facility] Repository 06/03/2018 [id number] Ambulatory [facility] ding:PSN Repository 06/03/2018 [id number] Ambulatory BMSBuilding: [facility] Repository 06/02/2018 [id number] Ambulatory [facility] ding:PSN Repository 06/02/2018 [id number] Ambulatory B[facility]Building: [facility] Repository 06/01/2018/06/01/20 [id number] Ambulatory BMSBuilding: [facility] 18 BMS.[facility] Repository 05/31/2018/05/31/20 [id number] Ambulatory BMSBuilding: [facility] 18 BMS.[facility] Repository 05/26/2018/05/29/20 [id number] Mic Khan Inpatient [facility] ding:PCURoom Repository : [id number]: 1 05/26/2018 [id number] Mic Khan Ambulatory BMSBuilding: [facility] Repository 05/26/2018 [id number] Mic Khan Ambulatory BMSBuilding: [facility] BMS.CF.[facility] Repository 05/26/2018 [id number] Mic Khan Ambulatory BMSBuilding: [place] BMS.[facility] Repository 05/26/2018 [id number] Mic Khan Ambulatory BMSBuilding: [facility]MS.[facility] Repository 05/26/2018 [id number] Mic Khan Ambulatory BMSBuilding: [place] BMS..[facility] Repository 05/26/2018 [id number] Mic Khan Ambulatory BMSBuilding: [place] BMS.[facility] Repository 05/26/2018 [id number] Mic Khan Ambulatory BMSBuilding: [place] BMS.[facility] Repository 05/26/2018 [id number] Mic Khan Ambulatory BMSBuilding: [place] BMS.[facility] Repository 05/26/2018 [id number] Mic Khan Ambulatory BMSBuilding: [facility] [facility]MS.[facility] Repository 05/26/2018/05/29/20 [id number] Ambulatory BMSBuilding: [place] 18 [facility] Repository 05/18/2018 [id number] Ambulatory [facility] ding:PSN Repository 05/17/2018 [id number] Ambulatory [facility] ding:LAB Repository 05/17/2018/05/17/20 [id number] Ambulatory BMSBuilding: [facility] 18 BMS.[facility] Repository 05/07/2018/05/07/20 [id number] Ambulatory BMSBuilding: [place] 18 BMS.[facility] Repository 05/04/2018 [id number] Ambulatory [facility] ding:CT Repository 04/29/2018 [id number] Ambulatory [facility] ding:MTLAB Repository 04/28/2018 [id number] Ambulatory [facility] ding:MTLAB Repository 04/28/2018/04/28/20 [id number] Ambulatory BMSBuilding: [place] 18 [facility]MS.[facility] Repository 03/25/2018 [id number] Ambulatory [facility] ding:MRI Repository 03/17/2018/03/17/20 [id number] Ambulatory BMSBuilding: [place] 18 BMS.[facility] Repository 03/17/2018 [id number] Ambulatory BMSBuilding: [place] BMS.CF.[facility] Repository 02/04/2018 [id number] Ambulatory [facility] ding:LAB Repository 02/01/2018/02/02/20 [id number] Ambulatory BMSBuilding: [place] 18 BMS.[facility] Repository 01/27/2018/01/28/20 [id number] Ambulatory [facility] ding:PT Repository 01/07/2018 [id number] Ambulatory [facility] ding:CVS Repository 01/07/2018 [id number] Ambulatory BMSBuilding: [facility] Repository 12/31/2017/01/01/20 [id number] Ambulatory BMSBuilding: [place] 18 [facility]MS.[facility] Repository 12/25/2017/12/26/19 [id number] Ambulatory BMSBuilding: [place] 18 BMS.[facility] Repository 12/21/2017 [id number] Ambulatory BMSBuilding: [facility] BMS.[facility] Repository 12/01/2017 [id number] Ambulatory BMSBuilding: [place] BMS.CF.[facility] Repository 12/01/2017/12/02/19 [id number] Ambulatory BMSBuilding: [place] 18 BMS.[facility] Repository 11/19/2017/11/20/19 [id number] Ambulatory BMSBuilding: [place] 18 BMS.[facility] Repository 11/13/2017 [id number] Ambulatory [facility] ding:LAB.FUT Repository URE 11/11/2017 [id number] Ambulatory BMSBuilding: [facility] BMS.[facility] Repository 10/21/2017/10/22/19 [id number] Ambulatory BMSBuilding: [facility] 18 BMS.[facility] Repository 10/09/2017/10/09/19 [id number] Ambulatory BMSBuilding: [facility] 18 BMS.[facility] Repository 09/25/2017/09/25/19 [id number] Ambulatory BMSBuilding: [facility] 18 BMS.[facility] Repository 09/21/2017 [id number] Ambulatory [facility] ding:HPRAD Repository 09/21/2017/09/21/19 [id number] Ambulatory BMSBuilding: [facility] 18 BMS.[facility] Repository 09/15/2017 [id number] Ambulatory [facility] ding:MTLAB Repository 09/15/2017/09/15/19 [id number] Ambulatory BMSBuilding: [place] 18 BMS.[facility] Repository PAYERS PAYERS ENCOUNTER GUARANTOR PAYER SUBSCRIBER SOURCE 09/08/2018 ANGEL Gaxiola Primary NOT GIVENUNK [facility] [id number] Insurance:SELF PAY [facility] [address]Xjf: Number: Effective Repository Date:2018-09-08 () 09/07/2018 ANGEL Gaxiola Primary NOT GIVENUNK [facility] [id number] Insurance:SELF PAY [facility] [address]Obc: Number: Effective Repository Date:2018-09-07 () 09/04/2018 ANGEL Gaxiola Primary NOT GIVENUNK [facility] [id number] Insurance:SELF PAY Community AR[place]IA [place], [facility] [address]Qrc: Number: Effective Repository Date:2018-09-04 () 08/28/2018 ANGEL Gaxiola Primary ANGEL Deluca [id number] Insurance:MEDICARE [place]: Community ARGELIA [place]DW[place]ER, PART A [facility] [id number] [address]Lzd: Number: Repository [id number] () Date:2018-08-28 08/28/2018 Secondary ANGEL Deluca Insurance:CIGNAPolicy [place]: Community Number: [id number] Hospital [id number] Repository Date:9666-10-86Bn [place] [address], [place] [address]CV: 08/28/2018 Tertiary NOT GIVENUNK [place] Insurance:SELF PAY [facility] Number: Effective Repository Date:2018-08-28 08/28/2018 ANGEL Deluca [id number] Insurance:MEDICARE BRENNEM[place]OB: Community ARGELIA [place]DW[place], PART A [facility] [id number] Memorial Hospital [address]Xfc: Number: Repository [id number] () Date:2018-08-28 08/28/2018 Secondary ANGEL Deluca Insurance:CIGNAPolicy [place]ENN[place]OB: Community Number: [id number] Hospital [id number] Repository Date:0441-36-27Gw [place] [address], [place] [address]RW: 08/28/2018 Tertiary NOT GIVENUNK [place] Insurance:SELF PAY [facility] Number: Effective Repository Date:2018-08-28 08/28/2018 ANGEL Deluca [id number] Insurance:MEDICARE BRENN[place]OB: Community ARGELIA [place]DW[place], PART A [facility] [id number] Memorial Hospital [address]Cqg: Number: Repository [id number] (HP) Date:2018-08-28 08/28/2018 Secondary ANGEL Deluca Insurance:CIGNAPolicy [place]: Community Number: [id number] Hospital [id number] Repository Date:1849-23-74Fw [address]bonum[place], [place] [address]CM: 08/28/2018 Tertiary NOT GIVENUNK [facility] Insurance:SELF PAY [facility] Number: Effective Repository Date:2018-08-28 08/28/2018 ANGEL Gaxiola Primary ANGEL Deluca [id number] Insurance:MEDICARE BRENNEM[place]OB: Community ARGELIA [place], PART A [facility] [id number] Memorial Hospital [address]Rtd: Number: Repository [id number] () Date:2018-08-28 08/28/2018 Secondary ANGEL Deluca Insurance:CIGNAPolicy [place]OB: Community Number: [id number] Hospital [id number] Repository Date:5995-81-52Gr [address]Kcurxmvjbxl, [place] [address]HO: 08/28/2018 Tertiary NOT GIVENUNK [place] Insurance:SELF PAY [facility] Number: Effective Repository Date:2018-08-28 08/28/2018 ANGEL Gaxiola Primary ANGEL [place]uca [id number] Insurance:MEDICARE BRENNEM[place]OB: Community ARGELIA [place], PART A [facility] [id number] Memorial Hospital [address]Lde: Number: Repository [id number] (HP) Date:2018-08-28 08/28/2018 Secondary ANGEL Deluca Insurance:CIGNAPolicy [place]OB: Community Number: [id number] Hospital [id number] Repository Date:2500-19-64Yf [address]JwmamnhqyeuW[place], [place] [address]XV: 08/28/2018 Tertiary NOT GIVENUNK [facility] Insurance:SELF PAY [facility] Number: Effective Repository Date:2018-08-28 08/28/2018 ANGEL Gaxiola Primary ANGEL Deluca [id number] Insurance:MEDICARE BRENN[place]OB: Community ARGELIA [place], PART A [facility] [id number] [address]Njf: Number: Repository [id number] (HP) Date:2018-08-28 08/28/2018 Secondary ANGEL [place]uca Insurance:CIGNAPolicy BR[place]OB: Community Number: [id number] [place] [address] [id number] Repository Date:2297-49-90Ud [address]Ebzsmxluhli, [place] [address]WQ: 08/28/2018 Tertiary NOT GIVENUNK [place] Insurance:SELF PAY [facility] Number: Effective Repository Date:2018-08-28 08/19/2018 ANGEL Gaxiola Primary ANGLE [place] [id number] Insurance:MEDICARE BRENNEM[place]OB: Community ARGELIA [place], PART A [facility] [id number] [place] [id number]: Number: Repository [id number] (HP) Date:2018-06-18 08/19/2018 Secondary ANGEL Deluca Insurance:CIGNAPolicy [place]OB: Community Number: [id number] [place] [address] [id number] Repository Date:9407-62-96Co [address]Cwtwkxpxuyr, [place] [address]PQ: 08/19/2018 Tertiary NOT GIVENUNK [place] Insurance:SELF PAY [facility] Number: Effective Repository Date:2018-06-18 08/06/2018 ANGEL Gaxiola Primary ANGEL Deluca [id number] Insurance:MEDICARE BRENN[place]OB: Community ARGELIA [place], PART A [facility] [id number] [address]Ogy: Number: Repository [id number] (HP) Date:2018-07-29 08/06/2018 Secondary ANGEL Deluca Insurance:CIGNAPolicy [place]OB: Community Number: [id number] Hospital [id number] Repository Date:2116-87-91Nn [address]Fbungmdqfau, [place] [address]WZ: 08/06/2018 Tertiary NOT GIVENUNK [place] Insurance:SELF PAY [facility] Number: Effective Repository Date:2018-08-06 07/30/2018 ANGEL Minor Primary ANGEL Deluca [id number] Insurance:MEDICARE [place]OB: Community ARGELIA [place], PART A [facility] [id number] Memorial Hospital [address]Rkx: Number: Repository [id number] (HP) Date:2018-07-29 07/30/2018 Secondary ANGEL Deluca Insurance:CIGNAPolicy [place]: Community Number: [id number] Hospital [id number] Repository Date:3338-75-21Da [address]Hachxvtzkwv, [place] [address]QJ: 07/30/2018 Tertiary NOT GIVENUNK [facility] Insurance:SELF PAY [facility] Hospital Number: Effective Repository Date:2018-07-30 07/30/2018 ANGEL Minor [place] [id number] Insurance:MEDICARE [place]ENN[place]OB: Community ARGELIA [place], PART A [facility] [id number] Memorial Hospital [address]Zwc: Number: Repository [id number] (HP) Date:2018-07-29 07/30/2018 Secondary ANGEL Deluca Insurance:CIGNAPolicy [place]: Community Number: [id number] Hospital [id number] Repository Date:2699-33-95Cl [address]Inymcogzvnv, [place] [address]WO: 07/30/2018 Tertiary NOT GIVENUNK [place] Insurance:SELF PAY [facility] Number: Effective Repository Date:2018-07-30 07/30/2018 ANGEL Minor Primary ANGEL Deluca [id number] Insurance:MEDICARE [place]ENN[place]OB: Community ARGELIA [place], PART A [facility] [id number] Memorial Hospital [address]Pqr: Number: Repository [id number] (HP) Date:2018-07-29 07/30/2018 Secondary ANGEL Deluca Insurance:CIGNAPolicy [place]: Community Number: [id number] Hospital [id number] Repository Date:9622-97-85Uq [address]Mpsqwactndp, [place] [address]AX: 07/30/2018 Tertiary NOT GIVENUNK [place] Insurance:SELF PAY [facility] Number: Effective Repository Date:2018-07-29 07/29/2018 ANGEL Gaxiola Primary ANGEL Deluca [id number] Insurance:MEDICARE [place]ENN[place]OB: Community ARGELIA [place]DW[place], PART A [facility] [id number] Memorial Hospital [address]Jvq: Number: Repository [id number] (HP) Date:2018-06-21 07/29/2018 Secondary ANGEL Deluca Insurance:CIGNAPolicy [place]: Community Number: [id number] Hospital [id number] Repository Date:6541-87-42Mo [address]Ytxrcmigtnj, [place] [address]QT: 07/29/2018 Tertiary NOT GIVENUNK [facility] Insurance:SELF PAY [facility] Number: Effective Repository Date:2018-07-27 07/21/2018 ANGEL Gaxiola Primary ANGEL Deluca [id number] Insurance:MEDICARE BRENN[place]OB: Community ARGELIA [place], PART A [facility] [id number] Memorial Hospital [address]Wjd: Number: Repository [id number] (HP) Date:2018-06-21 07/21/2018 Secondary ANGEL Deluca Insurance:CIGNAPolicy [place]OB: Community Number: [id number] Hospital [id number] Repository Date:5246-69-13Cd [address]Kucruaglaqx, [place] [address]UX: 07/21/2018 Tertiary NOT GIVENUNK [facility] Insurance:SELF PAY [facility] Number: Effective Repository Date:2018-07-19 07/20/2018 ANGEL Gaxiola Primary ANGEL Deluca [id number] Insurance:MEDICARE BRENN[place]OB: Community ARGELIA [place], PART A [facility] [id number] Memorial Hospital [address]Aeb: Number: Repository [id number] () Date:2018-06-18 07/20/2018 Secondary ANGEL Deluca Insurance:CIGNAPolicy [place]OB: Community Number: [id number] Hospital [id number] Repository Date:2922-73-25Yg [address]Dimrdozmyxq, [place] [address]TJ: 07/20/2018 Tertiary NOT GIVENUNK [place] Insurance:SELF PAY [facility] Number: Effective Repository Date:2018-07-13 07/19/2018 ANGEL Gaxiola Primary ANGEL Deluca [id number] Insurance:MEDICARE [place]ENN[place]OB: Community ARGELIA [place], PART A [facility] [id number] Memorial Hospital [address]Pbj: Number: Repository [id number] () Date:2018-06-18 07/19/2018 Secondary ANGEL Deluca Insurance:CIGNAPolicy [place]OB: Community Number: [id number] Hospital [id number] Repository Date:4672-81-04Ms [address]Ybckwpqfsru, [place] [address]XB: 07/19/2018 Tertiary NOT GIVENUNK [place] Insurance:SELF PAY [facility] Number: Effective Repository Date:2018-06-18 07/05/2018 ANGEL Gaxiola Primary ANGEL Deluca [id number] Insurance:MEDICARE BRENN[place]OB: Community ARGELIA [place], PART A [facility] [id number] Memorial Hospital [address]Gzy: Number: Repository [id number] (HP) Date:2018-07-05 07/05/2018 Secondary ANGEL Deluca Insurance:CIGNAPolicy [place]OB: Community Number: [id number] Hospital [id number] Repository Date:8041-15-60Ou [address]Qjmnnmfhbei, [place] [address]FJ: 07/05/2018 Tertiary NOT GIVENUNK [place] Insurance:SELF PAY [facility] Number: Effective Repository Date:2018-07-05 06/24/2018 ANGEL Gaxiola Primary ANGEL Deluca [id number] Insurance:MEDICARE BRENNEM[place]OB: Community ARGELIA [place], PART A [facility] [id number] Memorial Hospital [address]Alx: Number: Repository [id number] (HP) Date:2018-06-24 06/24/2018 Secondary ANGEL Deluca Insurance:CIGNAPolicy [place]OB: Community Number: [id number] Hospital [id number] Repository Date:3972-81-69Nx [address]Qxxtlfzujdo, [place] [address]FP: 06/24/2018 Tertiary NOT GIVENUNK [place] Insurance:SELF PAY [facility] Number: Effective Repository Date:2018-06-24 06/21/2018 ANGEL Gaxiola Primary ANGEL Deluca [id number] Insurance:MEDICARE BRENNEM[place]OB: Community ARGELIA [place], PART A [facility] [id number] Memorial Hospital [address]Vgh: Number: Repository [id number] (HP) Date:2018-06-18 06/21/2018 Secondary ANGEL Deluca Insurance:CIGNAPolicy [place]OB: Community Number: [id number] Hospital [id number] Repository Date:6708-49-56Gn [address]Vliulgmvjta, [place] [address]DM: 06/21/2018 Tertiary NOT GIVENUNK [place] Insurance:SELF PAY [facility] Number: Effective Repository Date:2018-06-21 06/21/2018 ANGEL Gaxiola Primary ANGEL Deluca [id number] Insurance:MEDICARE BRENNEM[place]OB: Community ARGELIA [place], PART A [facility] [id number] Memorial Hospital [address]Wmv: Number: Repository [id number] (HP) Date:2018-05-17 06/21/2018 Secondary ANGEL Deluca Insurance:CIGNAPolicy [place]OB: Community Number: [id number] [place] [address] [id number] Repository Date:6714-13-86Jv [address]Yacypltzxbo, [place] [address]HY: 06/21/2018 Tertiary NOT GIVENUNK [place] Insurance:SELF PAY [facility] Number: Effective Repository Date:2018-06-21 06/18/2018 ANGEL Gaxiola Primary ANGEL Deluca [id number] Insurance:MEDICARE [place]: Community ARGELIA RDWOOSTER, PART A [facility] [id number] Memorial Hospital [address]Cxb: Number: Repository [id number] (HP) Date:2018-06-14 06/18/2018 Secondary ANGEL Deluca Insurance:CIGNAPolicy [place]: Community Number: [id number] Hospital [id number] Repository Date:4233-94-88[address]Xnxsquantti, [place] [address]LU: 06/18/2018 Tertiary NOT GIVENUNK [place] Insurance:SELF PAY [facility] Number: Effective Repository Date:2018-06-17 06/17/2018 ANGEL Gaxiola Primary ANGEL Deluca [id number] Insurance:MEDICARE [place]: Community ARGELIA RDWOOSTER, PART A [facility] [id number] Memorial Hospital [address]Qcm: Number: Repository [id number] (HP) Date:2001-09-17 06/17/2018 Secondary ANGEL Deluca Insurance:CIGNAPolicy [place]: Community Number: [id number] Hospital [id number] Repository Date:5391-22-04Ok [address]Wsxzydsixtt, [place] [address]TQ: 06/17/2018 Tertiary NOT GIVENUNK [place] Insurance:SELF PAY [facility] Number: Effective Repository Date:2018-06-17 06/17/2018 ANGEL Gaxiola Primary ANGEL Deluca [id number] Insurance:MEDICARE [place]: Community ARGELIA WOOSTER, PART A [facility] [id number] Memorial Hospital [address]Sqt: Number: Repository [id number] (HP) Date:2001-09-17 06/17/2018 Secondary ANGEL Deluca Insurance:CIGNAPolicy [place]: Community Number: [id number] Hospital [id number] Repository Date:4120-46-27Ft [address]Bznoehwxzwu, [place] [address]OJ: 06/17/2018 Tertiary NOT GIVENUNK [place] Insurance:SELF PAY [facility] Number: Effective Repository Date:2016-11-03 06/14/2018 ANGEL Minor Deluca [id number] Insurance:MEDICARE [place]: Community ARGELIA RDW[place]ER, PART A [facility] [id number] Memorial Hospital [address]Zyu: Number: Repository [id number] (HP) Date:2018-06-07 06/14/2018 Secondary ANGEL Deluca Insurance:CIGNAPolicy [place]: Community Number: [id number] Hospital [id number] Repository Date:1947-59-83L[address]Cebgvxsfkao, [place] [address]TM: 06/14/2018 Tertiary NOT GIVENUNK [place] Insurance:SELF PAY [facility] Number: Effective Repository Date:2018-06-07 06/09/2018 ANGEL Minor Primary ANGEL Gaxiola [facility] BRENNEMANDOB: Insurance:MEDICARE A [facility] Number: [id number] Repository [facility], [id number] [place] [address]Fow: Date: () 06/09/2018 Secondary ANGEL [facility] Insurance:CIGNA [place]: [facility] Number: [id number] Repository [id number] Date: 06/08/2018 ANGEL Gaxiola Primary ANGEL Deluca [id number] Insurance:MEDICARE [place]: Community ARGELIA RDWOOSTER, PART A [facility] [id number] Memorial Hospital [address]Hbl: Number: Repository [id number] (HP) Date:2018-06-08 06/08/2018 Secondary ANGEL Deluca Insurance:CIGNAPolicy [place]: Community Number: [id number] Hospital [id number] Repository Date:1902-62-42Cl [address]Uvlwaoacnaq, [place] [address]UM: 06/08/2018 Tertiary NOT GIVENUNK [place] Insurance:SELF PAY [facility] Number: Effective Repository Date:2018-06-08 06/08/2018 ANGEL Minor Deluca [id number] Insurance:MEDICARE [place]: Community ARGELIA WOOSTER, PART A [facility] [id number] Memorial Hospital [address]Jkt: Number: Repository [id number] (HP) Date:2018-03-18 06/08/2018 Secondary ANGEL Deluca Insurance:CIGNAPolicy [place]: Community Number: [id number] Hospital [id number] Repository Date:1319-28-76Il [address]Dcoyzgfzczv, [place] [address]BH: 06/08/2018 Tertiary NOT GIVENUNK [place] Insurance:SELF PAY [facility] Number: Effective Repository Date:2018-06-08 06/07/2018 ANGEL Minor Deluca [id number] Insurance:MEDICARE [place]: Community ARGELIA RDW[place]ER, PART A [facility] [id number] Memorial Hospital [address]Vml: Number: Repository [id number] (HP) Date:2018-06-07 06/07/2018 Secondary ANGEL Deluca Insurance:CIGNAPolicy [place]: Community Number: [id number] Hospital [id number] Repository Date:8431-47-89Ys [address]Pzhbhpoibmi, [place] [address]JK: 06/07/2018 Tertiary NOT GIVENUNK [place] Insurance:SELF PAY [facility] Number: Effective Repository Date:2018-06-07 06/03/2018 ANGEL Gaxiola Primary ANGEL Deluca [id number] Insurance:MEDICARE [place]: Community ARGELIA RDWOOSTER, PART A [facility] [id number] Memorial Hospital [address]Xnn: Number: Repository [id number] (HP) Date:2018-06-01 06/03/2018 Secondary ANGEL Deluca Insurance:CIGNAPolicy [place]: Community Number: [id number] Hospital [id number] Repository Date:6488-52-52Ca [address]Qcolffmullp, [place] [address]LQ: 06/03/2018 Tertiary NOT GIVENUNK [place] Insurance:SELF PAY [facility] Number: Effective Repository Date:2018-06-01 06/03/2018 ANGEL Gaxiola Primary ANGEL Deluca [id number] Insurance:MEDICARE [place]: Community ARGELIA RDWOOSTER, PART A [facility] [id number] Memorial Hospital [address]Mys: Number: Repository [id number] () Date:2018-06-01 06/03/2018 Secondary ANGEL Deluca Insurance:CIGNAPolicy [place]: Community Number: [id number] Hospital [id number] Repository Date:8710-71-42Cb [address]Iqkmfzqncyj, [place] [address]RU: 06/03/2018 Tertiary NOT GIVENUNK [place] Insurance:SELF PAY [facility] Number: Effective Repository Date:2018-06-03 06/02/2018 ANGEL Gaxiola Primary ANGEL Deluca [id number] Insurance:MEDICARE [place]: Community ARGELIA RDWOOSTER, PART A [facility] [id number] Memorial Hospital [address]Rmx: Number: Repository [id number] (HP) Date:2018-06-01 06/02/2018 Secondary ANGEL Deluca Insurance:CIGNAPolicy [place]: Community Number: [id number] Hospital [id number] Repository Date:4180-77-69Mi [place] [address]Cohmsptvrdy, [place] [address]KF: 06/02/2018 Tertiary NOT GIVENUNK [place] Insurance:SELF PAY [facility] Number: Effective Repository Date:2018-06-01 06/02/2018 ANGEL Gaxiola Primary ANGEL Deluca [id number] Insurance:MEDICARE [place]: Community ARGELIA RDWOOSTER, PART A [facility] [id number] Memorial Hospital [address]Ulo: Number: Repository [id number] () Date:2018-06-01 06/02/2018 Secondary ANGEL Deluca Insurance:CIGNAPolicy [place]: Community Number: [id number] Hospital [id number] Repository Date:9410-43-25Jm [address]Uttgquflxkj, [place] [address]KV: 06/02/2018 Tertiary NOT GIVENUNK [place] Insurance:SELF PAY [facility] Number: Effective Repository Date:2018-06-02 06/01/2018 ANGEL Gaxiola Primary ANGEL Deluca [id number] Insurance:MEDICARE [place]: Community ARGELIA RDWOOSTER, PART A [facility] [id number] Memorial Hospital [address]Yvg: Number: Repository [id number] (HP) Date:2018-04-28 06/01/2018 Secondary ANGEL Deluca Insurance:CIGNAPolicy [place]: Community Number: [id number] Hospital [id number] Repository Date:8187-88-02Zy [address]Ocdpvjmxpns, [place] [address]CD: 06/01/2018 Tertiary NOT GIVENUNK [place] Insurance:SELF PAY [facility] Number: Effective Repository Date:2018-05-31 05/31/2018 ANGEL Gaxiola Primary ANGEL Deluca [id number] Insurance:MEDICARE [place]: Community ARGELIA RDWOOSTER, PART A [facility] [id number] Memorial Hospital [address]Rgh: Number: Repository [id number] (HP) Date:2018-05-31 05/31/2018 Secondary ANGEL Deluca Insurance:CIGNAPolicy [place]: Community Number: [id number] Hospital [id number] Repository Date:8485-65-97Qq [address]Tumfssekruk, [place] [address]SR: 05/31/2018 Tertiary NOT GIVENUNK [place] Insurance:SELF PAY [facility] Number: Effective Repository Date:2018-05-31 05/26/2018 ANGEL Gaxiola Primary ANGEL Deluca [id number] Insurance:MEDICARE [place]: Community ARGELIA RDWOOSTER, PART A [facility] [id number] Memorial Hospital [address]Bik: Number: Repository [id number] (HP) Date:2018-05-26 05/26/2018 Secondary ANGEL Deluca Insurance:CIGNAPolicy [place]: Community Number: [id number] Hospital [id number] Repository Date:2909-75-68Xx [address]Dtgbzsstora, [place] [address]GM: 05/26/2018 Tertiary NOT GIVENUNK [place] Insurance:SELF PAY [facility] Number: Effective Repository Date:2018-05-26 05/26/2018 ANGEL Gaxiola Primary ANGEL Deluca [id number] Insurance:MEDICARE [place]: Community ARGELIA RDWOOSTER, PART A [facility] [id number] Memorial Hospital [address]Wmz: Number: Repository [id number] (HP) Date:2018-05-26 05/26/2018 Secondary ANGEL Deluca Insurance:CIGNAPolicy [place]: Community Number: [id number] [place] [address] [id number] Repository Date:4053-71-38Rd [place] [address]Lfsgikbjxzz, [place] [address]RL: 05/26/2018 Tertiary NOT GIVENUNK [place] Insurance:SELF PAY [facility] Number: Effective Repository Date:2018-05-26 05/26/2018 ANGEL Gaxiola Primary ANGEL Deluca [id number] Insurance:MEDICARE [place]: Community ARGELIA RDWOOSTER, PART A [facility] [id number] Memorial Hospital [address]Jds: Number: Repository [id number] (HP) Date:2018-05-26 05/26/2018 Secondary ANGEL Deluca Insurance:CIGNAPolicy [place]: Community Number: [id number] [place] [address] [id number] Repository Date:6312-47-73Wj [address]Cfkaqqzpfdl, [place] [address]KF: 05/26/2018 Tertiary NOT GIVENUNK [place] Insurance:SELF PAY [facility] Number: Effective Repository Date:2018-05-26 05/26/2018 ANGEL Gaxiola Primary ANGEL Deluca [id number] Insurance:MEDICARE [place]: Community ARGELIA RDWOOSTER, PART A [facility] [id number] Memorial Hospital [address]Sop: Number: Repository [id number] (HP) Date:2018-05-26 05/26/2018 Secondary ANGEL Deluca Insurance:CIGNAPolicy [place]: Community Number: [id number] [id number] Repository Date:3673-60-46Lr [place] [address]Yfpwrjbdiyc, [place] [address]BH: 05/26/2018 Tertiary NOT GIVENUNK [place] Insurance:SELF PAY [facility] Number: Effective Repository Date:2018-05-26 05/26/2018 ANGEL Gaxiola Primary ANGEL Deluca [id number] Insurance:MEDICARE [place]: Community ARGELIA RDWOOSTER, PART A [facility] [id number] Memorial Hospital [address]Pxe: Number: Repository [id number] (HP) Date:2018-05-26 05/26/2018 Secondary ANGEL Deluca Insurance:CIGNAPolicy [place]: Community Number: [id number] [place] [address] [id number] Repository Date:4771-70-86Kk [address]Reqgcfgwcex, [place] [address]IU: 05/26/2018 Tertiary NOT GIVENUNK [place] Insurance:SELF PAY [facility] Number: Effective Repository Date:2018-05-26 05/26/2018 ANGEL Gaxiola Primary ANGEL Deluca [id number] Insurance:MEDICARE [place]: Community ARGELIA RDWOOSTER, PART A [facility] [id number] [address]Bmm: Number: Repository [id number] (HP) Date:2018-05-26 05/26/2018 Secondary ANGEL Deluca Insurance:CIGNAPolicy [place]: Community Number: [id number] [place] [address] [id number] Repository Date:8063-36-28Gw [place] [address]Vfnjbbrnlxf, [place] [address]CF: 05/26/2018 Tertiary NOT GIVENUNK [place] Insurance:SELF PAY [facility] Number: Effective Repository Date:2018-05-26 05/26/2018 ANGEL Gaxiola Primary ANGEL Deluca [id number] Insurance:MEDICARE [place]: Community ARGELIA RDWOOSTER, PART A [facility] [id number] [address]Yow: Number: Repository [id number] (HP) Date:2018-05-26 05/26/2018 Secondary ANGEL Deluca Insurance:CIGNAPolicy [place]: Community Number: [id number] Hospital [id number] Repository Date:6084-89-39Rd [address]Breylgyiywa, [place] [address]KH: 05/26/2018 Tertiary NOT GIVENUNK [place] Insurance:SELF PAY [facility] Number: Effective Repository Date:2018-05-26 05/26/2018 ANGEL Gaxiola Primary ANGEL Deluca [id number] Insurance:MEDICARE [place]: Community ARGELIA RDWOOSTER, PART A [facility] [id number] [place] [address]Whq: Number: Repository [id number] (HP) Date:2018-05-26 05/26/2018 Secondary ANGEL Deluca Insurance:CIGNAPolicy [place]: Community Number: [id number] [place] [address] [id number] Repository Date:4164-32-06Ef [address]Fnntverjukf, [place] [address]UR: 05/26/2018 Tertiary NOT GIVENUNK [place] Insurance:SELF PAY [facility] Number: Effective Repository Date:2018-05-26 05/26/2018 ANGEL Gaxiola Primary ANGEL Deluca [id number] Insurance:MEDICARE [place]: Community ARGELIA RDWOOSTER, PART A [facility] [id number] Memorial Hospital [address]Swg: Number: Repository [id number] (HP) Date:2018-05-26 05/26/2018 Secondary ANGEL Deluca Insurance:CIGNAPolicy [place]: Community Number: [id number] [place] [address] [id number] Repository Date:3613-95-90Ty [address]Vkurpozcqrj, [place] [address]MY: 05/26/2018 Tertiary NOT GIVENUNK [place] Insurance:SELF PAY [facility] Number: Effective Repository Date:2018-05-26 05/26/2018 ANGEL Gaxiola Primary ANGEL Deluca [id number] Insurance:MEDICARE [place]: Community ARGELIA RDWOOSTER, PART A [address] [address]Uia: Number: Repository [id number] (HP) Date:2018-05-26 05/26/2018 Secondary ANGEL Deluca Insurance:CIGNAPolicy [place]: Community Number: [id number] [id number] Repository Date:9352-82-75Fl [place] [address]Wcjrfdkzkaw, [place] [address]PI: 05/26/2018 Tertiary NOT GIVENUNK [place] Insurance:SELF PAY [facility] Number: Effective Repository Date:2018-05-26 05/26/2018 ANGEL Gaxiola Primary ANGEL Deluca [id number] Insurance:MEDICARE [place]: Community ARGELIA RDWOOSTER, PART A [facility] [id number] [address]Btf: Number: Repository [id number] (HP) Date:2018-05-26 05/26/2018 Secondary ANGEL Deluca Insurance:CIGNAPolicy [place]: Community Number: [id number] [place] [address] [id number] Repository Date:4001-66-81Fi [address]Xytarwzgfvt, [place] [address]UL: 05/26/2018 Tertiary NOT GIVENUNK [place] Insurance:SELF PAY [facility] Number: Effective Repository Date:2018-05-26 05/18/2018 ANGEL Gaxiola Primary ANGEL Deluca [id number] Insurance:MEDICARE [place]: Community ARGELIA RDWOOSTER, PART A [address] [address]Xon: Number: Repository [id number] (HP) Date:2018-04-28 05/18/2018 Secondary ANGEL Deluca Insurance:CIGNAPolicy [place]: Community Number: [id number] Hospital [id number] Repository Date:4258-11-36Jy [place] [address]Cznoitluuyh, [place] [address]GF: 05/18/2018 Tertiary NOT GIVENUNK [place] Insurance:SELF PAY [facility] Number: Effective Repository Date:2018-04-28 05/17/2018 ANGEL Deluca [id number] Insurance:MEDICARE [place]: Community ARGELIA RDWOOSTER, PART A [facility] [id number] Memorial Hospital [address]Rlw: Number: Repository [id number] () Date:2018-05-17 05/17/2018 Secondary ANGEL Deluca Insurance:CIGNAPolicy [place]: Community Number: [id number] Hospital [id number] Repository Date:4580-03-40Jb [address]Xvrtuncxqcx, [place] [address]NW: 05/17/2018 Tertiary NOT GIVENUNK [place] Insurance:SELF PAY [facility] Number: Effective Repository Date:2018-05-17 05/17/2018 ANGEL Minor Deluca [id number] Insurance:MEDICARE [place]: Community ARGELIA RDW[place]ER, PART A [facility] [id number] Memorial Hospital [address]Fes: Number: Repository [id number] (HP) Date:2018-02-01 05/17/2018 Secondary ANGEL Deluca Insurance:CIGNAPolicy [place]: Community Number: [id number] Hospital [id number] Repository Date:1822-68-22Ir [address]Vswjeiedlfm, [place] [address]LN: 05/17/2018 Tertiary NOT GIVENUNK [place] Insurance:SELF PAY [facility] Number: Effective Repository Date:2018-05-17 05/07/2018 ANGEL Minor Deluca [id number] Insurance:MEDICARE [place]: Community ARGELIA RDWOOSTER, PART A [facility] [id number] Memorial Hospital [address]Svd: Number: Repository [id number] (HP) Date:2018-05-07 05/07/2018 Secondary ANGEL Deluca Insurance:CIGNAPolicy [place]: Community Number: [id number] Hospital [id number] Repository Date:2437-78-46Jt [address]Lggrcuhstbi, [place] [address]YF: 05/07/2018 Tertiary NOT GIVENUNK [place] Insurance:SELF PAY [facility] Number: Effective Repository Date:2018-05-07 05/04/2018 ANGEL Gaxiola Primary ANGEL Deluca [id number] Insurance:MEDICARE [place]: Community ARGELIA RDW[place]ER, PART A [facility] [id number] Memorial Hospital [address]Cla: Number: Repository [id number] (HP) Date:2018-04-28 05/04/2018 Secondary ANGEL Deluca Insurance:CIGNAPolicy [place]: Community Number: [id number] Hospital [id number] Repository Date:1921-14-15Lg [address]Hkcoelqfdcz, [place] [address]VJ: 05/04/2018 Tertiary NOT GIVENUNK [place] Insurance:SELF PAY [facility] Number: Effective Repository Date:2018-04-28 04/29/2018 ANGEL Gaxiola Primary ANGEL Deluca [id number] Insurance:MEDICARE [place]: Community ARGELIA RDW[place]ER, PART A [facility] [id number] Memorial Hospital [address]Toy: Number: Repository [id number] (HP) Date:2018-04-29 04/29/2018 Secondary ANGEL Deluca Insurance:CIGNAPolicy [place]: Community Number: [id number] Hospital [id number] Repository Date:5423-25-84Tx [address]Wyqhkuzpmdt, [place] [address]OM: 04/29/2018 Tertiary NOT GIVENUNK [place] Insurance:SELF PAY [facility] Number: Effective Repository Date:2018-04-29 04/28/2018 ANGEL Gaxiola Primary ANGEL Deluca [id number] Insurance:MEDICARE [place]: Community ARGELIA RDW[place]ER, PART A [facility] [id number] Memorial Hospital [address]Qhk: Number: Repository [id number] (HP) Date:2018-04-28 04/28/2018 Secondary ANGEL Deluca Insurance:CIGNAPolicy [place]: Community Number: [id number] Hospital [id number] Repository Date:6766-15-94Ah [address]Ciqksrqduih, [place] [address]XX: 04/28/2018 Tertiary NOT GIVENUNK [place] Insurance:SELF PAY [facility] Number: Effective Repository Date:2018-04-28 04/28/2018 ANGEL Deluca [id number] Insurance:MEDICARE [place]: Community ARGELIA RDW[place]ER, PART A [facility] [id number] Memorial Hospital [address]Kbs: Number: Repository [id number] (HP) Date:2018-04-27 04/28/2018 Secondary ANGEL Deluca Insurance:CIGNAPolicy [place]: Community Number: [id number] Hospital [id number] Repository Date:2569-74-51Et [address]Tjeotjvbnuq, [place] [address]OR: 04/28/2018 Tertiary NOT GIVENUNK [place] Insurance:SELF PAY [facility] Number: Effective Repository Date:2018-04-28 03/25/2018 ANGEL Gaxiola Primary ANGEL Deluca [id number] Insurance:MEDICARE [place]: Community ARGELIA [place]DW[place]ER, PART A [facility] [id number] Memorial Hospital [address]Cle: Number: Repository [id number] (HP) Date:2018-03-17 03/25/2018 Secondary ANGEL Deluca Insurance:CIGNAPolicy [place]: Community Number: [id number] Hospital [id number] Repository Date:0268-65-27Vc [address]Uawqfdlxsyn, [place] [address]HR: 03/25/2018 Tertiary NOT GIVENUNK [place] Insurance:SELF PAY [facility] Number: Effective Repository Date:2018-03-17 03/17/2018 ANGEL Gaxiola Primary ANGEL Deluca [id number] Insurance:MEDICARE [place]: Community ARGELIA RDW[place]ER, PART A [facility] [id number] Memorial Hospital [address]Dyo: Number: Repository [id number] () Date:2018-03-15 03/17/2018 Secondary ANGEL Deluca Insurance:CIGNAPolicy [place]: Community Number: [id number] Hospital [id number] Repository Date:9681-07-54Wg [address]Hpipcvmduzf, [place] [address]AY: 03/17/2018 Tertiary NOT GIVENUNK [place] Insurance:SELF PAY [facility] Number: Effective Repository Date:2018-03-17 03/17/2018 ANGEL Deluca [id number] Insurance:MEDICARE [place]: Community ARGELIA [place]DW[place]ER, PART A [facility] [id number] Memorial Hospital [address]Baa: Number: Repository [id number] () Date:2001-09-17 03/17/2018 Secondary ANGEL Deluca Insurance:CIGNAPolicy [place]: Community Number: [id number] Hospital [id number] Repository Date:3923-31-95Qc [address]Jzrjcjxhnpp, [place] [address]AK: 03/17/2018 Tertiary NOT GIVENUNK [place] Insurance:SELF PAY [facility] Number: Effective Repository Date:2018-03-17 02/04/2018 ANGEL Gaxiola Primary ANGEL Deluca [id number] Insurance:MEDICARE [place]: Community ARGELIA [place]DW[place]ER, PART A [facility] [id number] Memorial Hospital [address]Lvu: Number: Repository [id number] (HP) Date:2018-02-04 02/04/2018 Secondary ANGEL Deluca Insurance:CIGNAPolicy [place]: Community Number: [id number] Hospital [id number] Repository Date:6984-61-99Xs [place] [id number], [place] [address]JH: 02/04/2018 Tertiary NOT GIVENUNK [place] Insurance:SELF PAY [facility] Number: Effective Repository Date:2018-02-04 02/01/2018 ANGEL Gaxiola Primary ANGEL Deluca [id number] Insurance:MEDICARE [place]: Community ARGELIA [place]DW[place]ER, PART A [facility] [id number] Memorial Hospital [address]Dbh: Number: Repository [id number] () Date:2017-12-31 02/01/2018 Secondary ANGEL Deluca Insurance:CIGNAPolicy [place]: Community Number: [id number] Hospital [id number] Repository Date:4857-63-42Li [address]Yhpfgorokec, [place] [address]NQ: 02/01/2018 Tertiary NOT GIVENUNK [place] Insurance:SELF PAY [facility] Number: Effective Repository Date:2018-02-01 01/27/2018 ANGEL Gaxiola Primary ANGEL Deluca [id number] Insurance:MEDICARE [place]: Community ARGELIA [place]DW[place]ER, PART A [facility] [id number] Memorial Hospital [address]Dtl: Number: Repository [id number] (HP) Date:2001-09-17 01/27/2018 Secondary ANGEL Deluca Insurance:CIGNAPolicy [place]: Community Number: [id number] Hospital [id number] Repository Date:5379-73-34Ae [address]Wjkxqqhowds, [place] [address]LU: 01/27/2018 Tertiary NOT GIVENUNK [place] Insurance:SELF PAY [facility] Number: Effective Repository Date:2017-10-21 01/07/2018 ANGEL Gaxiola Primary ANGEL Deluca [id number] Insurance:MEDICARE [place]: Community [place]IA [place], PART A [facility] [id number] Memorial Hospital [address]Wep: Number: Repository [id number] (HP) Date:2017-12-25 01/07/2018 Secondary ANGEL Deluca Insurance:CIGNAPolicy [place]: Community Number: [id number] Hospital [id number] Repository Date:[id number], [place] [address]GU: 01/07/2018 Tertiary NOT GIVENUNK [place] Insurance:SELF PAY [facility] Number: Effective Repository Date:2017-12-25 01/07/2018 ANGEL Deluca [id number] Insurance:MEDICARE [place]: Community [place]ELIA RDW[place]ER, PART A [facility] [id number] Memorial Hospital [address]Cqs: Number: Repository [id number] (HP) Date:2017-12-25 01/07/2018 Secondary ANGEL Deluca Insurance:CIGNAPolicy [place]: Community Number: [id number] Hospital [id number] Repository Date:2819-09-33[id number], [place] [address]BL: 01/07/2018 Tertiary NOT GIVENUNK [place] Insurance:SELF PAY [facility] Number: Effective Repository Date:2018-01-07 12/31/2017 ANGEL Gaxiola Primary ANGEL Deluca [id number] Insurance:MEDICARE [place]ENN[place]: Community ARGELIA RDWOOSTER, PART A [facility] [id number] [facility] Hospital [address]Vhu: Number: Repository [id number] (HP) Date:2017-12-31 12/31/2017 Secondary ANGEL Deluca Insurance:CIGNAPolicy [place]ENN[place]OB: Community Number: [id number] Hospital [id number] Repository Date:8829-94-04[address], [place] [address]ND: 12/31/2017 Tertiary NOT GIVENUNK [place] Insurance:SELF PAY [facility]: Effective Repository Date:2017-12-31 12/25/2017 ANGEL Gaxiola Primary ANGEL Deluca [id number] Insurance:MEDICARE BRENNEMANDOB: [facility], PART A [facility] [id number] Memorial Hospital [address]Jdf: Number: Repository [id number] (HP) Date:2017-12-15 12/25/2017 Secondary ANGEL Deluca Insurance:CIGNAPolicy [place]ENN[place]: Community Number: [id number] [facility] [id number] Repository Date:5864-11-64[address], [place] [address]AG: 12/25/2017 Tertiary NOT GIVENUNK [place] Insurance:SELF PAY [facility] Number: Effective Repository Date:2017-12-25 12/21/2017 ANGEL Gaxiola Primary ANGEL Deluca [id number] Insurance:MEDICARE BRENNEMANDOB: [facility], PART A [facility] [id number] Memorial Hospital [address]Cpt: Number: Repository [id number] (HP) Date:2017-08-06 12/21/2017 Secondary ANGEL Deluca Insurance:CIGNAPolicy [place]: Community Number: [id number] Hospital [id number] Repository Date:9749-78-18GY [address]QVBRNFOCQYO, [place] [address]WR: 12/21/2017 Tertiary NOT GIVENUNK [place] Insurance:SELF PAY [facility] Number: Effective Repository Date:2017-08-06 12/01/2017 ANGEL Gaxiola Primary ANGEL Deluca [id number] Insurance:MEDICARE BRENNEM[place]OB: Community ARGELIA RDW[place]ER, PART A [facility] [id number] Memorial Hospital [address]Mws: Number: Repository [id number] (HP) Date:2001-09-17 12/01/2017 Secondary ANGEL Deluca Insurance:CIGNAPolicy [place]: Community Number: [id number] Hospital [id number] Repository Date:3563-79-75[address]py[place], [place] [address]JJ: 12/01/2017 Tertiary NOT GIVENUNK [place] Insurance:SELF PAY [facility] Number: Effective Repository Date:2017-12-01 12/01/2017 ANGEL Gaxiola Primary ANGEL Deluca [id number] Insurance:MEDICARE BRENNEM[place]OB: Community ARGELIA [place], PART A [facility] [id number] Memorial Hospital [address]Axv: Number: Repository [id number] (HP) Date:2017-10-21 12/01/2017 Secondary ANGEL Deluca Insurance:CIGNAPolicy [place]: Community Number: [id number] Hospital [id number] Repository Date:2939-74-93[address]Vykdrrggrgz, [place] [address]BP: 12/01/2017 Tertiary NOT GIVENUNK [place] Insurance:SELF PAY [facility] Number: Effective Repository Date:2017-12-01 11/19/2017 ANGEL Gaxiola Primary ANGEL Deluca [id number] Insurance:MEDICARE BRENNEM[place]OB: Community ARGELIA [place]DW[place]ER, PART A [facility] [id number] Memorial Hospital [address]End: Number: Repository [id number] (HP) Date:2017-11-19 11/19/2017 Secondary ANGEL Deluca Insurance:CIGNAPolicy [place]OB: Community Number: [id number] Hospital [id number] Repository Date:2968-82-16[address]Zmnqtefdkex, [place] [address]SW: 11/19/2017 Tertiary NOT GIVENUNK [place] Insurance:SELF PAY [facility] Number: Effective Repository Date:2017-11-19 11/13/2017 ANGEL Gaxiola Primary ANGEL Deluca [id number] Insurance:MEDICARE BRENN[place]OB: Community ARGELIA [place], PART A [facility] [id number] Memorial Hospital [address]Bdd: Number: Repository [id number] (HP) Date:2017-11-11 11/13/2017 Secondary ANGEL Deluca Insurance:CIGNAPolicy [place]: Community Number: [id number] Hospital [id number] Repository Date:8734-52-38Vq [address]Xisopvgcdof, [place] [address]RS: 11/13/2017 Tertiary NOT GIVENUNK [place] Insurance:SELF PAY [facility] Number: Effective Repository Date:2017-11-11 11/11/2017 ANGEL G Primary ANGEL Dleuca [id number] Insurance:MEDICARE BRENN[place]OB: Community ARGELIA [place], PART A [facility] [id number] Memorial Hospital [address]Utv: Number: Repository [id number] (HP) Date:2017-11-11 11/11/2017 Secondary ANGEL Deluca Insurance:CIGNAPolicy [place]OB: Community Number: [id number] Hospital [id number] Repository Date:6857-98-27Ug [address]Vqxydirgfvp, [place] [address]DP: 11/11/2017 Tertiary NOT GIVENUNK [place] Insurance:SELF PAY [facility] Number: Effective Repository Date:2017-11-11 10/21/2017 ANGEL Minor Primary ANGEL Deluca [id number] Insurance:MEDICARE BRENN[place]OB: Community ARGELIA [place]DW[place], PART A [facility] [id number] Memorial Hospital [address]Lzo: Number: Repository [id number] (HP) Date:2017-07-27 10/21/2017 Secondary ANGEL Deluca Insurance:CIGNAPolicy [place]OB: Community Number: [id number] Hospital [id number] Repository Date:5308-11-60Zj [address]Opiodtmrqnt, [place] [address]IX: 10/21/2017 Tertiary NOT GIVENUNK [place] Insurance:SELF PAY [facility] Number: Effective Repository Date:2017-07-27 10/09/2017 ANGEL Gaxiola Primary ANGEL Deluca [id number] Insurance:MEDICARE BRENN[place]OB: Community ARGELIA [place]DW[place], PART A [facility] [id number] Memorial Hospital [address]Tee: Number: Repository [id number] (HP) Date:2017-10-09 10/09/2017 Secondary ANGEL Deluca Insurance:CIGNAPolicy [place]OB: Community Number: [id number] Hospital [id number] Repository Date:6859-00-09Jz [address]Hriyyoshdcq, [place] [address]TG: 10/09/2017 Tertiary NOT GIVENUNK [place] Insurance:SELF PAY [facility] Number: Effective Repository Date:2017-10-09 09/25/2017 ANGEL Gaxiola Primary ANGEL Deluca [id number] Insurance:MEDICARE BRENN[place]OB: Community ARGELIA [place]DW[place], PART A [facility] [id number] Memorial Hospital [address]Nrb: Number: Repository [id number] (HP) Date:2017-09-21 09/25/2017 Secondary ANGEL Deluca Insurance:CIGNAPolicy [place]OB: Community Number: [id number] Hospital [id number] Repository Date:2391-69-90Tp [address]Duwkwyvwiez, [place] [address]AR: 09/25/2017 Tertiary NOT GIVENUNK [place] Insurance:SELF PAY [facility] Number: Effective Repository Date:2017-09-21 09/21/2017 ANGEL [id number] Insurance:MEDICARE BRENN[place]OB: Community ARGELIA RDW[place]ER, PART A olic [id number] Memorial Hospital [address]Rrn: Number: Repository [id number] (HP) Date:2017-09-21 09/21/2017 Secondary ANGEL Deluca Insurance:CIGNAPolicy [place]OB: Community Number: [id number] Hospital [id number] Repository Date:3023-36-12Ji [address]Ycdqtllbamk, [place] [address]XB: 09/21/2017 Tertiary NOT GIVENUNK [place] Insurance:SELF PAY [facility] Number: Effective Repository Date:2017-09-21 09/21/2017 ANGEL [id number] Insurance:MEDICARE [place]ENN[place]OB: Community ARGELIA [place]DW[place], PART A [facility] [id number] Memorial Hospital [address]Dxy: Number: Repository [id number] (HP) Date:2017-09-21 09/21/2017 Secondary ANGEL Deluca Insurance:CIGNAPolicy [place]OB: Community Number: [id number] Hospital [id number] Repository Date:2774-99-73Oc [address]Kqreyzstbkw, [place] [address]OR: 09/21/2017 Tertiary NOT GIVENUNK [place] Insurance:SELF PAY [facility] Number: Effective Repository Date:2017-09-21 09/15/2017 ANGEL [id number] Insurance:MEDICARE BRENN[place]OB: Community ARGELIA RDW[place], PART A [facility] [id number] Memorial Hospital [address]Pin: Number: Repository [id number] (HP) Date:2017-09-15 09/15/2017 Secondary ANGEL Yosi Insurance:CIGNAPolicy MABELEMANDOB: Community Number: [id number] Hospital [id number] Repository Date:5419-05-88[address] [place], [place] [address]WT: 09/15/2017 Tertiary NOT GIVENUNK [place] Insurance:SELF PAY [facility] Number: Effective Repository Date:2017-09-15 09/15/2017 ANGEL Primary ANGEL Lign[place] [id number] Insurance:MEDICARE BREELYSSAEMANDOB: Community ARGELIA RDWOOER, PART A BPolicy [id number] [address]Lep: Number: Repository [id number] () Date:2017-09-10 09/15/2017 Secondary ANGEL [place] Insurance:CIGNAPolangellay CORIB: Community Number: [id number] Hospital [id number] Repository Date:2296-12-98QI [address]IDXVBFMZCWV, [place] [address]RO: 09/15/2017 Tertiary NOT GIVENUNK [place] Insurance:SELF PAY [facility] Number: Effective Repository Date:2017-09-10
== END 2018-07-30 14:55 | disposition home or self-care (01) ==
LOC: CLSP 11:10
PROVIDERS: Family Provider Internal Medicine; PCP Internal Medicine; Referring Provider Internal Medicine Cardiovascular Disease; Visit Provider Internal Medicine Cardiovascular Disease
DX: I48.91 Unspecified atrial fibrillation (principal); I11.0 Hypertensive heart disease with heart failure; I50.33 Acute on chronic diastolic (congestive) heart failure; I27.20 Pulmonary hypertension, unspecified; J44.9 Chronic obstructive pulmonary disease, unspecified; E78.5 Hyperlipidemia, unspecified; I10 Essential (primary) hypertension; D46.20 Refractory anemia with excess of blasts, unspecified; J96.21 Acute and chronic respiratory failure with hypoxia; E11.9 Type 2 diabetes mellitus without complications; G47.33 Obstructive sleep apnea (adult) (pediatric); Z91.19 Patient's noncompliance with other medical treatment and regimen; Z87.891 Personal history of nicotine dependence
CPT/HCPCS: 36415; 80048; 92960; 93005; J7040

== ENCOUNTER → 2018-08-19 21:25 | Outpatient (CLI) | payer MEDICARE, OTHER, SELFPAY ==
[2018-08-19] MEDS: Zolpidem Tartrate 5 MG Tablet 2.5 MG PO (22:00)
== END ==
PROVIDERS: Family Provider Internal Medicine; PCP Internal Medicine; Visit Provider Internal Medicine Critical Care Medicine
DX: G47.10 Hypersomnia, unspecified (principal)
CPT/HCPCS: 95810

== ENCOUNTER 2018-08-28 11:45 | Inpatient (IN) | payer MEDICARE, OTHER, SELFPAY ==
[2018-07-29 15:20] VITALS: BMI 32.0
[2018-08-28] VITALS (17 sets, daily range): BP systolic 104–138; BP diastolic 32–78; PULSE 64–82; RESP 14–24; TEMP 36.3–37; O2SAT 91–100; BMI 30.9; BMI 32.2
--- NOTE | 2018-08-28 11:51 | ED.RN ---
MOUTH BREATHIN. ENCOURAGED TO BREAHING THROUGH NOSE AND SATS INCREASED TO 96% 3L
--- NOTE | 2018-08-28 12:17 | EKG12_ITS ---
Test Reason : Blood Pressure : / mmHG Vent. Rate : 075 BPM Atrial Rate : 072 BPM P-R Int : 000 ms QRS Dur : 086 ms QT Int : 398 ms P-R-T Axes : 000 -45 -17 degrees QTc Int : 444 ms Atrial fibrillation Left axis deviation Low voltage QRS Inferior infarct , age undetermined Cannot rule out Anteroseptal infarct , age undetermined Abnormal ECG Confirmed by SHELBY CORADO, BG ([id number]), slot editor QUINN BLAIR ([id number]) on 08/31/2018 4:43:21 PM Referred By: KARISHMA Confirmed By:BG RYAN MD
--- NOTE | 2018-08-28 12:17 | RAD_ITS ---
STUDY: X-RAY CHEST REASON FOR EXAM: Male, 82 years old. Shortness of breath. Dyspnea TECHNIQUE: Frontal and lateral views of the chest. COMPARISON: May 26, 2018 FINDINGS: There are monitoring devices. There is elevation the right hemidiaphragm. There is left upper lung airspace consolidation. There is no demonstrated pleural abnormality. There is mild cardiac enlargement. Normal mediastinum and delroy. Normal visualized pulmonary arteries. There is atherosclerotic calcification of the aortic arch with tortuosity. There is demineralization of the osseous structures. Normal visualized ribs, clavicles, and shoulders. There is no demonstrated abnormality of the visualized soft tissue structures of the upper abdomen. RAD/Chest PA and Lateral IMPRESSION: Left upper lung infiltrate. Electronically Signed: Wing Grubbs MD at 14:09 EST , Service support ,
--- NOTE | 2018-08-28 12:18 | RAD_ITS ---
STUDY: X-RAY - RIGHT FOOT CLINICAL: Male, 82 years old. Injury TECHNIQUE: 3 view(s) of the foot. COMPARISON: None. FINDINGS: No definite evidence for acute fractures. Degenerative changes in the first metatarsophalangeal joint. The fifth metatarsal base is within normal limits. There is likely an os navicularis present. Plantar spurring. Spurring in the tarsal bones. Vascular calcifications are seen. Joint space narrowing in the interphalangeal joints. IMPRESSION: No definite evidence for acute fracture seen. There is likely an os navicularis present. Please correlate with point tenderness in this region for subtle fractures Electronically Signed: Epi Mays, at 13:51 EST Tel , Service support , RAD/Foot min 3 Views
--- NOTE | 2018-08-28 12:24 | ED.DCSUM_ITS ---
- ER Visit Summary Date of Service: 08/28/18 Chief Complaint: Right foot injury, weakness, dyspnea History of Present Illness: The patient is a 82 M here with family evaluation of multiple symptoms. Mechanical fall a week ago right foot injury. EMS with a walker. Pain with ambulation. He is on Eliquis for history of A. fib. In addition complains of increasing dyspnea for the past week. Worse with exertion. No chest pain or tightness with this. History of COPD and heart failure on 3 L of oxygen. Reports increased leg swelling over 4 days, reports not taking his Lasix for 5 days. Paperwork a prescription specimen on 20 mg of Lasix twice daily. He is followed by Dr. Reynolds. Occasional cough that is baseline for him. Remote tobacco. Reports falling out of bed 2 days ago states contusion right chest and left lower back. Patient lives alone, family states he is not caring for himself as well. He admits to this. They were working outpatient home health with him. He ambulates with a walker. Physical Examination: General: Alert and oriented ?3, no acute distress HEENT: Normocephalic, atraumatic. Moist mucosa membranes Neck: supple, nontender. Cardiovascular: Regular rate and rhythm, no murmurs. Right anterior lower chest wall contusion, no crepitus, nontender. Respiratory: Normal breath sounds, symmetric, no distress Abdomen: Soft, nontender, nondistended Back: No midline tenderness small ecchymosis left lower flank. Extremities: Nontender, 1+ lower extremity bilateral edema, pulses intact ?4 Neuro: no focal neurological deficits. Test Results: EKG rate controlled A. fib rate of [address] or T wave changes. Chest x-ray per radiology left upper lobe infiltrate. Right foot x-ray: No fractures, office navicularis noted. White count 3.9, hemoglobin 7, platelets 91. Creatinine 2.39, potassium 5. BNP 519. Troponin 0 0.075. Emergency Department Course and Treatment: Initial history with patient's edema, he has not been taking his Lasix for the last 5 days of 20 mg twice daily. Given 40 mg IV Lasix. Vitals were stable O2 stable on his normal home 3 L. Clinically low suspicion for heart failure exacerbation at this time. With patient's foot injury, x-ray obtained as navicularis per radiology. He is tender more midfoot and not medially. Chest x-ray reporting infiltrate left upper lobe. Initial discussion multiple discussion, patient with no significant cough, occasional phlegm that is baseline for him. He had labs white count 3.9 hemoglobin 7, platelets 91. He has history of myelodysplastic syndrome. Hemoglobin down to units from previous labs. I did perform a rectal exam with brown stools and Hemoccult negative. With patient low hemoglobin and have exertional dyspnea, more concern for symptomatic anemia. Troponin returned 0.075. No chest pains. EKG with stable A. fib. Does have creatinine 2.39 that is chronic, this is in the middle of his previous labs. BNP returned at 519. I did discuss patient's history findings with hospitalist Dr. Estes, does agree with concerns for symptomatic anemia. Will order type and cross 1 unit of blood. Will hold off on antibiotics due to clinically no pneumonia symptoms. He will be admitted to PCU for further management. He is on Eliquis twice a day for his A. fib which will adequately anticoagulate him. Patient and family updated. Treatment Plan: [] Disposition: Admission Impression: 1. Symptomatic anemia 2. Chronic kidney disease 3. Right foot contusion 4. Elevated troponin V. History of myelodysplastic syndrome 6. Ch ronic atrial fibrillation This note was generated with [employer] dictation software. It may contain incorrect words, spelling, and punctuation that were not noted in review of the chart prior to signing ED Disposition - Plan for ED Patient: Disposition: Acute Care Hospital [facility] Chief Complaint: General Illness Diagnosis: Symptomatic anemia, Chronic kidney disease, Contusion of right foot, Elevated troponin, Myelodysplastic syndrome, Chronic atrial fibrillation Referrals: Roc Martinez MD [Primary Care Provider] -
[2018-08-28] MEDS: Furosemide 40 MG/4 ML Vial IV ×2 (12:27→18:52)
[2018-08-28 12:59] LABS: Absolute Lymphocyte Count 0.54 X10^3/ul (0.83-4.51); Absolute Neutrophil Count 2.8 X10^3/uL (2.0-7.7); Basophil# 0.02 X10^3/uL; Basophil% 0.5 % (0-1); Eosinophil# 0.04 X10^3/uL; Hematocrit 22.9 % (40-54); Lymphocyte # 0.54 X10^3/ul (4.0); Mean Corp Hgb Conc 30.6 g/gl (32-36); Mean Corpuscular Hgb 28.1 pg (27.0-32.0); Monocyte# 0.42 X10^3/uL; Monocyte% 10.9 % (0-10); Neutrophil # 2.79 X10^3/uL (2.7-7.7); Neutrophil % 72.3 % (47-70); Platelet Count 91 K/mm3 (150-450); RBC Distribution Width CV 26.3 % (11.6-14.6); RBC Distribution Width SD 80.9 fl (35.1-43.9); Red Blood Count 2.49 M/mm3 (4.6-6.2); White Blood Count 3.9 K/mm3 (4.4-11.0)
[2018-08-28 13:00] LABS: Differential Indicated SCAN CRITERIA MET; POSITIVE COUNT NO; POSITIVE DIFFERENTIAL YES; POSITIVE MORPHOLOGY YES
[2018-08-28 13:14] LABS: Anion Gap 6 (5-15); BUN 44 mg/dL (7-18); BUN/Creat Ratio 18.4 RATIO (10-20); Calcium,Total 8.6 mg/dL (8.5-10.1); Chloride 103 mmol/L (98-107); Creatinine, Serum 2.39 mg/dL (0.70-1.30); EST Glomerular Filtration Rate 28 mL/min (>60); Est Glom Filt Rate - Afr Amer 34 mL/min (>60); Estimated Creatinine Clearance 25.82 ml/min; Glucose 114 mg/dL (74-106); Sodium Level 138 mmol/L (136-145)
[2018-08-28 13:15] LABS: Acanthocytes 1+; Anisocytosis 1+; Hypochromasia 1+; Platelet Estimate MOD DEC (ADEQ); Schistocytes 1+
[2018-08-28 13:24] LABS: BNP,B-Type NATRIURETIC PEPTIDE 519.7 pg/mL (0-100)
--- NOTE | 2018-08-28 14:37 | ED.RN ---
200cc of urine emptied from urinal
--- NOTE | 2018-08-28 15:49 | HP.PCM_ITS ---
Problem List (1) (HFpEF) heart failure with preserved ejection fraction Status: Acute (2) Anemia Status: Acute Qualifiers: Anemia type: unspecified type Qualified Code(s): D64.9 - Anemia, unspecified History of Present Illness Date of Admission: 08/28/18 Chief Complaint: fatigue. weakness. The patient is a 82 year old M who for the past several months, has been just progressively weak and fatigued. Patient's been having increasing dyspnea on exertion walking short distances as well during this time. Patient does have a history of heart failure but stopping his Lasix a week ago. From what I can glean from he and his family that he stopped doing the because it limits his bathroom trips so voluntarily stopped it on his own. He has not weighed himself in a month so is unclear if he is put on any weight but he has noted increased lower extremity edema though his right leg is always chronically bigger than his left. Patient presented to the emergency room and was found to have a hemoglobin of 7, down from his baseline of around 9. BNP was elevated at 519. Patient did receive IV Lasix in the emergency room. Patient also typed and screened and ordered transfusion of 1 red blood cells given his anemia. Patient did have a troponin that was 0.075 but denies any chest pain. Patient did have with sound like a syncopal episode several weeks ago when he was in his kitchen and fell backwards. His foot was underneath a counter and did injure his right foot. X-ray in the emergency room was negative for any fracture. He did sustain bruising to that. Patient has not had further syncopal episodes but does have abnormal sleep patterns which he will one time he awoke with a garbage can in his bed and sleep study tore part to a [employer] box. Patient has had these events noted well before recently. [] Past Medical History Past Medical History (Chronic Problems): Chronic Problems (Last Reviewed 07/29/18 @ 13:03 by Monica Curtis) Chronic kidney disease (Chronic) Chronic atrial fibrillation (Chronic) Essential hypertension (Chronic) Respiratory failure (Chronic) Shortness of breath (Chronic) Anemia (Chronic) Thrombocytopenia (Chronic) MDS (myelodysplastic syndrome), low grade (Chronic) Hyperlipidemia (Chronic) Hyperlipemia (Chronic) Type 2 diabetes mellitus (Chronic) COPD (chronic obstructive pulmonary disease) (Chronic) Medical History: Medical History (Last Reviewed 08/28/18 @ 15:47 by Ray Oakley DO) Essential hypertension (Chronic) I10 Atrial fibrillation (Acute) I48.91 Shortness of breath (Chronic) R06.02 Acute on chronic diastolic CHF (congestive heart failure) (Acute) I50.33 Anemia (Chronic) D64.9 Thrombocytopenia (Chronic) D69.6 Pain on swallowing (Acute) R13.10 Premature atrial contractions (Acute) I49.1 MDS (myelodysplastic syndrome), low grade (Chronic) D46.20 Hypotension (Acute) I95.9 Paroxysmal atrial tachycardia (Acute) I47.1 Paroxysmal ventricular tachycardia (Acute) I47.2 Premature ventricular contraction (Acute) I49.3 Palpitations (Acute) R00.2 Hyperlipidemia (Chronic) E78.5 Hyperlipemia (Chronic) E78.5 Type 2 diabetes mellitus (Chronic) E11.9 COPD (chronic obstructive pulmonary disease) (Chronic) J44.9 Bilateral hip pain M25.551, M25.552 Contusion of right knee S80.01XA Inguinal hernia K40.90 Low back pain M54.5 Prepatellar bursitis, right knee M70.41 Thrombocytopenia D69.6 heart catheterization Arthritis M19.90 BPH (benign prostatic hyperplasia) N40.0 BPH (benign prostatic hyperplasia) N40.0 MDS (myelodysplastic syndrome), low grade D46.20 HTN (hypertension) (Inactive) I10 Hypertension (Inactive) I10 Allergies codeine Adverse Reaction (Severe, Verified 08/28/18 12:09) Unknown Home Medications: Ambulatory Orders Medication Instructions Recorded Metformin HCl [Glucophage] 1,000 mg PO DAILY 05/26/18 simvastatin 20 mg tablet 20 mg PO QHS #90 tab 05/31/18 albuterol sulfate HFA 90 1 puff INHALATION Q6H PRN #8.5 g 06/07/18 mcg/actuation aerosol inhaler amiodarone 200 mg tablet 200 mg PO DAILY #30 tab 06/21/18 apple cider vinegar 500 mg tablet 1 tablet PO QODAY tab 07/20/18 multivitamin with iron-mineral 1 tab PO DAILY 07/20/18 tablet tiotropium bromide 2.5 2 puff INHALATION QDAY #1 ea 07/20/18 mcg/actuation mist for inhalation mecobalamin (vitamin B12) 1,000 1,000 mcg SUBLINGUAL DAILY 07/29/18 mcg disintegrating tablet,sublingual apixaban 2.5 mg tablet 2.5 mg PO BID #60 tab 08/13/18 guaifenesin ER 1,200 mg tablet, 1,200 mg PO Q12H #90 tab 08/13/18 extended release 12 hr metoprolol succinate ER 25 mg 25 mg PO BID #60 tab 08/13/18 tablet,extended release 24 hr tamsulosin 0.4 mg capsule 0.4 mg PO DAILY #90 cap 08/13/18 Compress.stocking,Knee,Reg,Lrg 0 unit .ROUTE .MEDSUPPLY 08/28/18 [Relief Knee Open Toe] Furosemide [Lasix] 40 mg PO DAILY 08/28/18 Incentive Spirometer 1 unit INHALATION X1 08/28/18 Lisinopril 2.5 mg PO DAILY 08/28/18 Surgical History: Surgical History (Last Reviewed 08/28/18 @ 15:47 by Ray Oakley DO) H/O hernia repair Z98.890, Z87.19 History of left hip replacement Z96.642 History of left hip replacement Z96.642 History of hand surgery Z98.890 Lt Lives: With Family Smoking Status: Former smoker Tobacco Use: Non-smoker Alcohol: None Drugs: None - *Family History Maternal Family History: Family History (Last Reviewed 08/28/18 @ 15:48 by Ray Oakley DO) Mother Cancer, Onset Age: 59 Father Cancer, Onset Age: 44 Brother Cancer, Onset Age: 78 Son CVA (cerebral vascular accident) Diabetes Mother Cancer Review of Systems Constitutional: Reports: Malaise, Weakness, Fatigue. Denies: Anorexia, Chills, Fever, Night Sweats Eyes: Denies: Blurred vision, Double vision HEENT: Denies: Head Aches, Sinus Congestion, Sinus Drainage Cardiovascular: Reports: Edema. Denies: Chest Pain, Palpitations Respiratory: Reports: Shortness of Breath, Shortness of breath upon exertion, Sputum production Gastrointestinal: Denies: Abdominal Pain, Nausea, Vomiting Genitourinary: Denies: Dysuria Musculoskeletal: Denies: Joint Pain, Joint Tenderness Skin: Denies: Dryness, Jaundice Neurological: Reports: Balance problems. Denies: Blurred vision, Double vision, Headaches Psychiatric: Denies: Anxiety, Depression Endocrine: Denies: Change in Body Habitus, Heat/ Cold Intolerance Hematologic/ Lymphatic: Denies: Easy Bruising, Easy Bleeding, Hx of blood clot Comment: A 10 point review of systems were negative except as mentioned in the history of present illness and the other review of systems. VTE Information - Inpt Only VTE Present on Admission: No VTE Mechan Device Prophylaxis: None VTE Pharm Prophylaxis ordered?: Yes Patient Problems: Active and Suspected Problems (Last Reviewed 07/29/18 @ 13:03 by Monica Curtis) Symptomatic anemia (Acute) Contusion of right foot (Acute) Elevated troponin (Acute) Myelodysplastic syndrome (Acute) (HFpEF) heart failure with preserved ejection fraction (Acute) Anemia (Acute) - Physical Exam General: Alert, Cooperative, No apparent distress HEENT: Atraumatic, PERRLA, EOMI, Normocephalic, - - No scleral icterus Oral: Moist Mucosa, No Gingival or Mucosal Lesions/ Ulcerations Neck: No Nodes, Thyroid Normal Size and Texture Lungs: Diminished, - - Few bibasilar crackles Cardiovascular: Regular rate, Regular Rhythm, Normal S1, Normal S2, No murmurs Abdomen: Bowel Sounds Present, Soft, Non Tender, Non-Distended, No Hepato- splenomegaly, Obese Extremities: No Calf Tenderness, Edema - 3+ lower extremities Skin: - - Ecchymosis on dorsum of right foot. Musculoskeletal: No Tenderness to Palpation of Joints or Extremities, No Muscle Wasting Neurological: Sensory exam intact to light touch and pain, Coordination normal Psych/Mental Status: Normal Affect, Appropriate Vital Signs Temp Pulse Resp BP Pulse Ox 36.3 C L 64 14 122/64 H 100 08/28/18 12:10 08/28/18 15:08 08/28/18 15:08 08/28/18 15:08 08/28/18 15:08 Oxygen Flow Rate (L/min) 3 Oxygen Delivery Method Nasal Cannula Weight: 100.698 kg Body Mass Index (BMI) 30.9 Microbiology Past 72 Hours 08/28/18 13:35 Stool Occult Blood ([facility]) - Final Stool Laboratory Tests Past 24 Hrs 08/28/18 08/28/18 08/28/18 12:30 12:30 12:30 WBC 3.9 L RBC 2.49 L Hgb 7.0 L Hct 22.9 L MCV 92.0 MCH 28.1 MCHC 30.6 L RDW 26.3 H RDW Differential 80.9 H Plt Count 91 L MPV TNP Immature Gran % (Auto) 1.300 H Neut % (Auto) 72.3 H Lymph % (Auto) 14.0 L Smyth % (Auto) 10.9 H Eos % (Auto) 1.0 Baso % (Auto) 0.5 Absolute Neuts (auto) 2.8 Absolute Lymphs (auto) 0.54 L Total Counted Not Reportable Platelet Estimate MOD DEC Hypochromasia 1+ Anisocytosis 1+ Acanthocytes (Spur) 1+ Schistocytes 1+ Sodium 138 Potassium 5.0 Chloride 103 Carbon Dioxide 29.0 Anion Gap 6 BUN 44 H Creatinine 2.39 H Estim Creat Clear Calc 25.82 Est GFR (MDRD) Af Amer 34 L Est GFR (MDRD) Non-Af 28 L BUN/Creatinine Ratio 18.4 Glucose 114 H Calcium 8.6 Troponin I 0.075 H B-Natriuretic Peptide 519.7 H Blood Type Antibody Screen Crossmatch 08/28/18 14:50 WBC RBC Hgb Hct MCV MCH MCHC RDW RDW Differential Plt Count MPV Immature Gran % (Auto) Neut % (Auto) Lymph % (Auto) Smyth % (Auto) Eos % (Auto) Baso % (Auto) Absolute Neuts (auto) Absolute Lymphs (auto) Total Counted Platelet Estimate Hypochromasia Anisocytosis Acanthocytes (Spur) Schistocytes Sodium Potassium Chloride Carbon Dioxide Anion Gap BUN Creatinine Estim Creat Clear Calc Est GFR (MDRD) Af Amer Est GFR (MDRD) Non-Af BUN/Creatinine Ratio Glucose Calcium Troponin I B-Natriuretic Peptide Blood Type Pending Antibody Screen Pending Crossmatch See Detail EKG reviewed and lesion. On telemetry patient was noted to be in normal sinus rhythm. Chest x-ray reviewed and was more consistent with CHF. Read was suggestive of left upper lobe infiltrate but I am more concerned this is actually CHF. Assessment/Plan All Active Problems (Last Reviewed 07/29/18 @ 13:03 by Monica Curtis) Symptomatic anemia (Acute) Contusion of right foot (Acute) Elevated troponin (Acute) Myelodysplastic syndrome (Acute) (HFpEF) heart failure with preserved ejection fraction (Acute) Anemia (Acute) Pulmonary hypertension (Acute) Atrial fibrillation (Acute) Acute on chronic diastolic CHF (congestive heart failure) (Acute) Pain on swallowing (Acute) Premature atrial contractions (Acute) Hypotension (Acute) Paroxysmal atrial tachycardia (Acute) Paroxysmal ventricular tachycardia (Acute) Premature ventricular contraction (Acute) Palpitations (Acute) 1. Acute heart failure with preserved ejection fraction Echo June 01 showed an EF of 60% We will continue with IV Lasix, lisinopril and metoprolol succinate Patient stopped taking his Lasix about a week ago just to minimize his trips to the bathroom Encouraged patient to weigh himself daily upon discharge. Patient did endorse that his primary care doctor told him this as well but he just did not because it appears to be cumbersome for him. 2. Anemia Symptomatic Transfuse 1 unit of packed red blood cells Likely secondary to myelodysplastic syndrome Hemoccult negative in the emergency room 3. Obstructive sleep apnea Patient follow-up for CPAP titration on the of this month Follow-up with Dr. Connolly as outpatient 4. Diabetes mellitus type 2 Given his heart failure, I will hold his metformin Start sliding scale insulin 5. Paroxysmal atrial fibrillation Anticoagulated on Eliquis and on metoprolol succinate Currently in normal sinus rhythm Patient will be on telemetry 6. Syncope X1 that the patient endorses Check orthostatic vital signs Monitor on telemetry 7. DVT prophylaxis with Eliquis 8. Advanced care planning: Discussed CPR, intubation and PEG tube placement with patient. Patient wishes to have all those. Therefore, the patient is full CODE STATUS. Case discussed, with patient's permission, with his family members at bedside. Code Visit Inpatient E&M: 75987 Init Hosp L3
[2018-08-28 17:45] LABS: Bedside Glucose 101 mg/dL (70-110)
[2018-08-28] MEDS: 0.9% NaCl Peripheral Flush Adult/Peds IV (18:52)
[2018-08-28] MEDS: Metoprolol(XL)Succ 25 MG Tablet PO (21:51)
[2018-08-28] MEDS: APIXABAN 2.5 MG TABLET PO (21:51)
[2018-08-28] MEDS: Atorvastatin Calcium 10 MG Tablet PO (21:51)
[2018-08-28] MEDS: guaiFENesin 1,200 MG Tablet 1200 MG PO (21:51)
[2018-08-28 22:00] LABS: Bedside Glucose 159 mg/dL (70-110)
[2018-08-28] MEDS: Ipratropium 0.5 MG/2.5 ML SOLUTION INHALATION (22:13)
[2018-08-28] MEDS: Albuterol 2.5 MG/3 ML VIAL.NEB. INHALATION (22:13)
[2018-08-29] VITALS (19 sets, daily range): BP systolic 105–126; BP diastolic 53–64; PULSE 69–83; RESP 16–18; TEMP 36.4–36.9; O2SAT 93–98
[2018-08-29 06:50] LABS: Bedside Glucose 105 mg/dL (70-110)
[2018-08-29 06:57] LABS: Anion Gap 9 (5-15); BUN 41 mg/dL (7-18); BUN/Creat Ratio 18.6 RATIO (10-20); Calcium,Total 8.7 mg/dL (8.5-10.1); Chloride 103 mmol/L (98-107); EST Glomerular Filtration Rate 31 mL/min (>60); Est Glom Filt Rate - Afr Amer 37 mL/min (>60); Estimated Creatinine Clearance 27.19 ml/min; Glucose 100 mg/dL (74-106); Potassium 4.7 mmol/L (3.5-5.1); Sodium Level 140 mmol/L (136-145)
[2018-08-29] MEDS: guaiFENesin 1,200 MG Tablet 1200 MG PO ×2 (09:50→22:12)
[2018-08-29] MEDS: Tamsulosin HCl 0.4 MG Capsule PO (09:50)
[2018-08-29] MEDS: APIXABAN 2.5 MG TABLET PO ×2 (09:50→22:11)
[2018-08-29] MEDS: Metoprolol(XL)Succ 25 MG Tablet PO ×2 (09:50→22:11)
[2018-08-29] MEDS: Multivitamins,Ther W-Minerals Tablet 1 TABLET PO (09:50)
[2018-08-29] MEDS: Amiodarone 200 MG Tablet PO (09:50)
[2018-08-29] MEDS: Furosemide 40 MG/4 ML Vial IV ×2 (09:51→18:32)
[2018-08-29] MEDS: 0.9% NaCl Peripheral Flush Adult/Peds IV ×3 (09:51→22:11)
[2018-08-29 11:40] LABS: Hematocrit 24.7 % (40-54); Hemoglobin 7.7 g/dl (13.0-16.5)
--- NOTE | 2018-08-29 11:43 | PCM.PROGNOTE ---
Patient Problems: Active and Suspected Problems (Last Updated 08/29/18 @ 11:40 by Urmila Gardner MD) Symptomatic anemia (Acute) Contusion of right foot (Acute) Elevated troponin (Acute) (HFpEF) heart failure with preserved ejection fraction (Acute) Subjective: Chief complaint: Follow-up after admission for acute on chronic diastolic congestive heart failure, acute on chronic symptomatically anemia and borderline elevated troponin. Patient seen and examined. No acute events overnight. He reported some improvement of his shortness of breath, still complained of bilateral leg edema. He complains of right foot pain. He denies chest pain or palpitation. Denied cough or sputum production. Denied fever or chills. He is afebrile, blood pressure and heart rate are maintained, pulse ox is 98% on 2 L. - Physical Exam General: Alert, Oriented x3, Cooperative, - - Minimally short of breath. HEENT: Atraumatic, PERRLA, EOMI, Normocephalic Oral: No Gingival or Mucosal Lesions/ Ulcerations, Dry Mucosa Neck: Supple, No JVD, Negative Carotid Bruits, Trachea Midline, Thyroid Normal Size and Texture Lungs: Diminished, Rales, Rhonchi, Short of Breath, Wheezes, - - Decreased breath sounds bilateral, bilateral scattered rhonchi, occasional wheezes, faint crackles at the right base. Cardiovascular: Regular rate, Regular Rhythm, Normal S1, Normal S2, PMI Normal Abdomen: Bowel Sounds Present, Soft, Non Tender, Non-Distended, No Hepato-splenomegaly Extremities: No clubbing, No cyanosis, Edema - ++ Edema. Skin: No rashes, No breakdown, - - Bruises on the dorsal aspect of the right foot. Lymphatic: No Cervical, Supraclavicular, or Inguinal Adenopathy Neurological: Cranial nerves II-XII grossly intact, Motor Exam 5/5 strength throughout Psych/Mental Status: Normal Affect, Appropriate, Alert and oriented to time, place, person, mood and affect Vital Signs Temp Pulse Resp BP Pulse Ox 98.0 F 73 18 119/60 98 08/29/18 09:50 08/29/18 11:02 08/29/18 09:50 08/29/18 09:50 08/29/18 09:50 Oxygen Flow Rate (L/min) 2 Oxygen Delivery Method Nasal Cannula Weight: 227 lb 4.745 oz Body Mass Index (BMI) 32.2 Orthostatic Vital Signs Start: 08/29/18 05:16 Freq: q24h Status: Active Protocol: Activity Type Activity Date Activity User E-Sign Co-Sign Detail Recorded Client Recorded Date Recorded By Document 08/29/18 05:16 SOFÍA [id number] 08/29/18 05:26 [place] 08/29/18 05:16 Orthostatic Vitals Standing -Blood Pressure (90/60-120/80) 125/54 H -Extremity Use Left Arm -Pulse Rate (60-100) 83 Sitting -Blood Pressure (90/60-120/80) 107/53 L -Extremity Use Left Arm -Pulse Rate (60-100) 73 Lying -Blood Pressure (90/60-120/80) 123/64 H -Extremity Use Left Arm -Pulse Rate (60-100) 80 Intake and Output for Last 24 Hours 08/27/18 08/28/18 08/29/18 23:59 23:59 23:59 Intake Total 1130 / 1130 420 / 420 Output Total 1150 / 1150 325 / 325 Balance -20 / -20 95 / 95 Microbiology Past 72 Hours 08/28/18 13:35 Stool Occult Blood ([facility]) - Final Stool Laboratory Tests Past 24 Hrs 08/28/18 08/28/18 08/28/18 12:30 12:30 12:30 WBC 3.9 L RBC 2.49 L Hgb 7.0 L Hct 22.9 L MCV 92.0 MCH 28.1 MCHC 30.6 L RDW 26.3 H RDW Differential 80.9 H Plt Count 91 L MPV TNP Immature Gran % (Auto) 1.300 H Neut % (Auto) 72.3 H Lymph % (Auto) 14.0 L [place] % (Auto) 10.9 H Eos % (Auto) 1.0 Baso % (Auto) 0.5 Absolute Neuts (auto) 2.8 Absolute Lymphs (auto) 0.54 L Total Counted Not Reportable Platelet Estimate MOD DEC Hypochromasia 1+ Anisocytosis 1+ Acanthocytes (Spur) 1+ Schistocytes 1+ Sodium 138 Potassium 5.0 Chloride 103 Carbon Dioxide 29.0 Anion Gap 6 BUN 44 H Creatinine 2.39 H Estim Creat Clear Calc 25.82 Est GFR (MDRD) Af Amer 34 L Est GFR (MDRD) Non-Af 28 L BUN/Creatinine Ratio 18.4 Glucose 114 H Calcium 8.6 Iron TIBC Iron Saturation Ferritin Troponin I 0.075 H B-Natriuretic Peptide 519.7 H Blood Type Antibody Screen Crossmatch 08/28/18 08/28/18 08/28/18 14:50 19:00 21:30 WBC RBC Hgb Hct MCV MCH MCHC RDW RDW Differential Plt Count MPV Immature Gran % (Auto) Neut % (Auto) Lymph % (Auto) [place] % (Auto) Eos % (Auto) Baso % (Auto) Absolute Neuts (auto) Absolute Lymphs (auto) Total Counted Platelet Estimate Hypochromasia Anisocytosis Acanthocytes (Spur) Schistocytes Sodium Potassium Chloride Carbon Dioxide Anion Gap BUN Creatinine Estim Creat Clear Calc Est GFR (MDRD) Af Amer Est GFR (MDRD) Non-Af BUN/Creatinine Ratio Glucose Calcium Iron TIBC Iron Saturation Ferritin Troponin I 0.075 H 0.079 H B-Natriuretic Peptide Blood Type A POSITIVE Antibody Screen NEGATIVE Crossmatch See Detail 08/29/18 08/29/18 08/29/18 00:42 05:00 05:00 WBC RBC Hgb Hct MCV MCH MCHC RDW RDW Differential Plt Count MPV Immature Gran % (Auto) Neut % (Auto) Lymph % (Auto) [place] % (Auto) Eos % (Auto) Baso % (Auto) Absolute Neuts (auto) Absolute Lymphs (auto) Total Counted Platelet Estimate Hypochromasia Anisocytosis Acanthocytes (Spur) Schistocytes Sodium 140 Potassium 4.7 Chloride 103 Carbon Dioxide 28.0 Anion Gap 9 BUN 41 H Creatinine 2.20 H Estim Creat Clear Calc 27.19 Est GFR (MDRD) Af Amer 37 L Est GFR (MDRD) Non-Af 31 L BUN/Creatinine Ratio 18.6 Glucose 100 Calcium 8.7 Iron Pending TIBC Pending Iron Saturation Pending Ferritin Pending Troponin I 0.074 H B-Natriuretic Peptide Blood Type Antibody Screen Crossmatch 08/29/18 11:28 WBC RBC Hgb 7.7 L Hct 24.7 L MCV MCH MCHC RDW RDW Differential Plt Count MPV Immature Gran % (Auto) Neut % (Auto) Lymph % (Auto) [place] % (Auto) Eos % (Auto) Baso % (Auto) Absolute Neuts (auto) Absolute Lymphs (auto) Total Counted Platelet Estimate Hypochromasia Anisocytosis Acanthocytes (Spur) Schistocytes Sodium Potassium Chloride Carbon Dioxide Anion Gap BUN Creatinine Estim Creat Clear Calc Est GFR (MDRD) Af Amer Est GFR (MDRD) Non-Af BUN/Creatinine Ratio Glucose Calcium Iron TIBC Iron Saturation Ferritin Troponin I B-Natriuretic Peptide Blood Type Antibody Screen Crossmatch POC Glucose 08/29/18 08/28/18 08/28/18 06:44 21:42 17:38 POC Glucose 105 159 H 101 Clinical Impression(s) from Imaging Studies Chest X-Ray 08/28/18 12:17 IMPRESSION: Left upper lung infiltrate. Electronically Signed: Wing Grubbs MD at 14:09 EST , Service support , Foot X-Ray 08/28/18 12:18 Medical Necessity - Tobacco Use Smoking Status: Former smoker Tobacco Use: Non-smoker Assessment/Plan All Active Problems (Last Updated 08/29/18 @ 11:40 by Urmila Gardner MD) Symptomatic anemia (Acute) Contusion of right foot (Acute) Elevated troponin (Acute) (HFpEF) heart failure with preserved ejection fraction (Acute) This is an 82 years old male patient presented to the emergency room because of multiple complaints including exertional shortness of breath, increasing bilateral lower leg edema, weakness and with mechanical fall a week ago that caused a right foot injury and he was found to have acute on chronic diastolic CHF, acute on chronic symptomatically anemia and borderline elevated troponin. #1 acute on chronic diastolic CHF: With preserved ejection fraction. Patient stated that he did not take his Lasix for the last week, has been having increasing shortness of breath and bilateral leg edema. His EKG revealed A. fib, rate is controlled, no acute ischemic changes. Troponin is indeterminate, minimally elevated. He denies any chest pain. He had 2D echocardiogram on May, that showed moderate LVH, ejection fraction of 60%. Chest x-ray reviewed, revealed questionable infiltrate on the left mid zone. He is on IV Lasix and metoprolol. He is not on RORY inhibitors because of chronic kidney disease. Patient reports minimal improvement of his symptoms. 2D echocardiogram ordered. Plan: Continue diuresis, fluid restriction, repeat CBC and BMP tomorrow morning. #2 acute on chronic symptomatic anemia: Baseline hemoglobin has been around 10-11 g/dL and since May,, it is coming down to around 9 g/dL and on admission, it was 7 g/dL. Patient denies any bleeding from body orifices. It is normocytic anemia. He had iron studies 2 years ago that was normal. Stool was negative for occult blood. He received 1 unit of packed RBCs. Today's hemoglobin is 7.7 g/dL. Plan: Transfuse another unit of packed RBCs, check serum iron studies, serum ferritin, repeat CBC tomorrow morning. #3 borderline elevated troponin: Likely due to acute CHF and heart strain. Patient denies any chest pain. EKG reviewed, no acute changes. Patient had cardiac catheterization on May, that revealed LV ejection fraction of 65%, severely elevated right heart pressures, angiographically normal left main coronary artery, 25-50% stenosis of the proximal mid LAD, 25% stenosis of the mid circumflex, ostial RCA is occluded, no interventions performed and decision was made for medical treatment. 2D echocardiogram ordered. Patient is on Eliquis, statins and beta-blockers. #4 mechanical fall/right knee contusion/right foot contusion: Due to mechanical fall. X-ray of the right foot showed no acute fractures. Plan for pain control. #5 stage III chronic kidney disease: Baseline creatinine has been around 1.2-1.6 mg/dL. It has been going up to 2.9 mg/dL since June,. Admission creatinine was 2.39, came down to 2.20 today. Expect creatinine to worsen with IV diuresis. Plan to monitor BMP tomorrow. #6 COPD/chronic respiratory failure: Patient is on home oxygen and it is multifactorial secondary to CHF, COPD in addition to anemia. Plan: Start DuoNeb every 6 hours, albuterol as needed, continue IV diuresis, incentive spirometer, chest physiotherapy. Again, chest x-ray reviewed, revealed probable or questionable left lung infiltrate. At this time, I doubt pneumonia, patient denies any difficult cough or sputum production. He is afebrile, no leukocytosis. No indication for IV antibiotics. With a repeat chest x-ray tomorrow morning. #7 chronic atrial fibrillation, status post cardioversion. Now, he is in sinus rhythm although EKG revealed A. fib, rate is controlled. Continue amiodarone and metoprolol for rate control, continue Eliquis for anticoagulation. #8 type 2 diabetes mellitus: Blood sugar stable, continue ADA diet, Accu-Cheks, insulin sliding scale. At home, patient was on metformin, held at this time. #9 hypertension: Blood pressure stable, continue IV Lasix and metoprolol. #10 benign prostatic hypertrophy: Stable, continue Flomax. #11 myelodysplastic syndrome: He does have chronic pancytopenia secondary to MDS. He does have acute anemia requiring blood transfusion as above. He is leukopenic, but absolute neutrophil count is normal. Platelet count is at his baseline, no active bleeding. Plan to repeat CBC tomorrow. #12 DVT prophylaxis: Continue Eliquis. This note was generated with [employer] dictation software. It may contain incorrect words, spelling, and punctuation that were not noted in checking the note before signing. Code Visit Inpatient E&M: 43645 Subs Hosp L3
[2018-08-29 11:46] LABS: Bedside Glucose 131 mg/dL (70-110)
[2018-08-29 11:53] LABS: Ferritin 113 ng/mL (26-388); Iron 73 ug/dL (65-175); Iron Binding Capacity,Total 419 ug/dL (250-450); PERCENT IRON SATURATION 17.4 % (15.0-55.0)
[2018-08-29 16:45] LABS: Bedside Glucose 126 mg/dL (70-110)
--- NOTE | 2018-08-29 17:11 | CPS ---
Pt was taught IS breathing exercise. Improved on volumes from previous teaching from 600 to 800 mL. Patient understands how to use device and understands the benefits of usage. Will D/C based on this information and understanding of teaching.
[2018-08-29] MEDS: Ipratropium/Albuterol Sulfate 3 ML AMPUL.NEB INHALATION (19:51)
[2018-08-29] MEDS: Atorvastatin Calcium 10 MG Tablet PO (22:11)
[2018-08-29 23:16] LABS: Bedside Glucose 141 mg/dL (70-110)
[2018-08-30] VITALS (15 sets, daily range): BP systolic 107–127; BP diastolic 56–63; PULSE 73–85; RESP 16–20; TEMP 36.8–37.1; O2SAT 93–96
--- NOTE | 2018-08-30 05:55 | RAD_ITS ---
STUDY: X-RAY CHEST REASON FOR EXAM: Male, 82 years old. Shortness of breath. TECHNIQUE: Single AP portable view of the chest. COMPARISON: Chest, August 28, 2018. FINDINGS: Telemetry wires overlie the chest. There is continued elevation of the right hemidiaphragm. Again noted is a left perihilar infiltrate unchanged from the prior exam. There is no demonstrated pleural abnormality. There is mild cardiac enlargement. Normal mediastinum and delroy. Normal visualized pulmonary arteries. There is atherosclerotic calcification of the aortic arch with tortuosity. The thoracic spine is obscured by the mediastinum. Normal visualized ribs, clavicles, and shoulders. There is no demonstrated abnormality of the visualized soft tissue structures of the upper abdomen. RAD/Chest 1 View (Portable) IMPRESSION: Persistent left upper lobe infiltrate without interval change. Electronically Signed: Favian Downing DO at 19:29 EST Tel [phone], Service support ,
[2018-08-30 06:34] LABS: Anion Gap 6 (5-15); BUN 36 mg/dL (7-18); BUN/Creat Ratio 18.2 RATIO (10-20); Calcium,Total 8.4 mg/dL (8.5-10.1); Chloride 101 mmol/L (98-107); Creatinine, Serum 1.98 mg/dL (0.70-1.30); EST Glomerular Filtration Rate 35 mL/min (>60); Est Glom Filt Rate - Afr Amer 42 mL/min (>60); Estimated Creatinine Clearance 30.21 ml/min; Glucose 112 mg/dL (74-106); Potassium 4.3 mmol/L (3.5-5.1); Sodium Level 139 mmol/L (136-145)
[2018-08-30 06:46] LABS: Bedside Glucose 116 mg/dL (70-110)
[2018-08-30] MEDS: Ipratropium/Albuterol Sulfate 3 ML AMPUL.NEB INHALATION ×3 (07:09→20:00)
[2018-08-30 08:03] LABS: Absolute Lymphocyte Count 0.58 X10^3/ul (0.83-4.51); Absolute Neutrophil Count 3.1 X10^3/uL (2.0-7.7); Basophil# 0.01 X10^3/uL; Basophil% 0.2 % (0-1); Eosinophil# 0.03 X10^3/uL; Eosinophils% 0.7 % (0-5); Hematocrit 27.1 % (40-54); Hemoglobin 8.5 g/dl (13.0-16.5); Lymphocyte # 0.58 X10^3/ul (4.0); Lymphocyte % 13.2 % (19-41); Mean Corp Hgb Conc 31.4 g/gl (32-36); Mean Corpuscular Hgb 28.2 pg (27.0-32.0); Monocyte# 0.62 X10^3/uL; Monocyte% 14.2 % (0-10); Neutrophil % 70.8 % (47-70); Platelet Count 78 K/mm3 (150-450); RBC Distribution Width SD 72.7 fl (35.1-43.9); Red Blood Count 3.01 M/mm3 (4.6-6.2); White Blood Count 4.4 K/mm3 (4.4-11.0)
[2018-08-30 08:06] LABS: Differential Indicated SCAN CRITERIA MET; POSITIVE COUNT NO; POSITIVE DIFFERENTIAL YES; POSITIVE MORPHOLOGY YES
[2018-08-30] MEDS: Multivitamins,Ther W-Minerals Tablet 1 TABLET PO (09:29)
[2018-08-30] MEDS: APIXABAN 2.5 MG TABLET PO ×2 (09:29→22:54)
[2018-08-30] MEDS: Amiodarone 200 MG Tablet PO (09:29)
[2018-08-30] MEDS: Tamsulosin HCl 0.4 MG Capsule PO (09:29)
[2018-08-30] MEDS: Metoprolol(XL)Succ 25 MG Tablet PO ×2 (09:30→22:53)
[2018-08-30] MEDS: Furosemide 40 MG/4 ML Vial IV ×2 (09:32→18:41)
[2018-08-30] MEDS: Insulin Lispro 100 UNIT/ML INSULN.PEN SQ (11:10)
[2018-08-30] MEDS: guaiFENesin 1,200 MG Tablet 1200 MG PO ×2 (11:10→22:53)
--- NOTE | 2018-08-30 11:17 | CASEMGMT ---
EVERETT POLK assessment: Face to Face with patient for initial transition planning/care coordination assessment. EVERETT POLK introduced self and role at [facility], pt voices understanding and consents to assessment at this time. Pt is sitting up in bed in no distress at this time. Pt is A/OX4 at this time and answers all questions appropriately at this time. Pt's son, Patrick Lambert, is at bedside during assessment. Care providers, pharmacy, and demographics verified at this time. PCP: Juan Specialists: anthony Connolly; Gail, cardio Preferred Pharmacy: [facility] Insurance: MCR A/B, [employer] Prescription Benefit: [employer] Living Will/HPOA: Pt states has a LW/HPOA but is aware that they are not currently on file at [facility]. Pt states that his son, Patrick Lambert, is HPOA. LNOK: Patrick Lambert, son Living Arrangements: Pt states lives alone on the main floor of a 2 story home and states has been 'struggling' some at home to complete ADL's. Pt's son states concerns about pt's meds and if he is taking the correct ones. Transportation: Pt states that his son has been driving and states no transportation concerns at this time. DME/HHC: Pt states has the following DME: shower chair, grab bars, walker, 2liters home oxygen thru [employer], and states is in the process of obtaining cpap. Pt states would like info on medical alerts at this time and son provided with the info at this time. Pt states no hx of HHC or SNF but would like list of HHC companies at this time. Dr. Coy to bedside and pt agreed to SNF at this time. SNF list to pt's son at this time as well. Rene SW aware and voices understanding at this time. Pt/son state some concern with pt going home at time of discharge. Pt is retired. Pt states does not smoke or drink ETOH. Pt states no further questions/concerns/needs at this time. CM to follow for any further discharge planning/needs. Advised pt/son to ask for CM if any further questions/concerns/needs arise, voices understanding. Plan: TBD [place] POLK
[2018-08-30 11:20] LABS: Bedside Glucose 191 mg/dL (70-110)
--- NOTE | 2018-08-30 11:45 | US_ITS ---
STUDY: RENAL ULTRASOUND - COMPLETE REASON FOR EXAM: Male, 82 years old. Chronic kidney disease, abnormal laboratory studies. TECHNIQUE: Ultrasound evaluation of the kidneys was performed with real-time and static monique-scale imaging. COMPARISON: None. FINDINGS: RIGHT KIDNEY: Normal location of the right kidney, which is normal in size. The right kidney measures 9.9 x 5.4 x 6.0 cm. There is borderline increased cortical echogenicity of the right kidney, which could reflect change of long-standing medical renal disease. The renal cortex measures 1.7 cm. There is no right renal mass or cyst. There are no right renal calculi. There is no right hydronephrosis. DISTAL RIGHT URETER: There is non-visualization of the distal right ureter. There is no demonstrated right ureterovesical junction calculus. There is a visualized right ureteral jet. LEFT KIDNEY: Normal location of the left kidney, which is normal in size. The left kidney measures 9.8 x 5.5 x 5.5 cm. There is Increased cortical echogenicity of the left kidney, which could reflect change of long-standing medical renal disease. The renal cortex measures 1.4 cm. There is no left renal mass or cyst. There are no left renal calculi. There is no left hydronephrosis. DISTAL LEFT URETER: There is non-visualization of the distal left ureter. There is no demonstrated left ureterovesical junction calculus. There is no demonstrated left ureteral jet. BLADDER: The distended urinary bladder has a volume of 351.7 ml. There is a diffuse mildly thickened 4 mm wall of the distended bladder. There is no demonstrated mass within the urinary bladder. There are no demonstrated bladder calculi. Incidental note of free fluid/ascites in the right upper quadrant. A very small left pleural effusion is also noted. US/Kidney and Bladder IMPRESSION: 1. Normal size kidneys without hydronephrosis. There is borderline increased cortical echogenicity of the kidneys, which could reflect change of long-standing medical renal disease. 2. Mild mural thickening of the normal capacity urinary bladder. 3. Small volume ascites in the right upper quadrant as well as very small left pleural effusion. Electronically Signed: Ian Banks MD at 17:15 EST , Service support ,
--- NOTE | 2018-08-30 13:20 | CON.PCM_ITS ---
Consultation - Renal 08/30/18 PCP/ Referring MD: Requesting physician: [] Primary care physician: Roc Martinez MD - History of Present Illness History of Present Illness: The patient is a 82 year old M who for the past several months, has been progressively weak and fatigued. Patient's been having increasing dyspnea on exertion walking short distances. He would become SOB after walking 10 steps. He has COPD with tobacco use history, wears oxygen at home. Patient has a history of heart failure with chronic leg swelling. He is on lasix but cut back his dose a week ago when his swelling improved. He has increased weight gain with swelling. He has difficulty using bathroom due to SOB. He has BPH but denied hesitancy, dribbling. No prior renal US done. Creatinine improved from 2.39 on admit to 1.98 after lasix decreased. His creatinine has been as high as 3.22 on 06/24/18. He has atrial fibrillation but denied chest pain, palpitations. He does get lightheaded when moves too fast. He fell at home and hit his right foot on a cabinet that is red and painful. No fx reported. He denies syncopal episode. Patient presented to the emergency room and was found to have a hemoglobin of 7, down from his baseline of around 9. BNP was elevated at 519. Patient did receive IV Lasix in the emergency room. He received 2u packed red blood cells. He had a BM biopsy few months ago and was diagnosed with MDS followed by hemato logy. He denied black stools or BRBPR. - Allergies Allergies: Allergies codeine Adverse Reaction (Severe, Verified 08/28/18 12:09) Unknown - Current Medications Current Medications: Current Medications Acetaminophen (Tylenol) 650 mg PO Q6H PRN PRN PRN Reason: Mild Pain (1-3)/Temp > 100.7 F Albuterol Sulfate (Ventolin Aerosols) 2.5 mg INHALATION Q4H PRN PRN PRN Reason: shortness of breath or wheezing Albuterol/Ipratropium (Duoneb) 3 ml INHALATION Q6H.RT SHAHID Last Admin: 08/30/18 13:14 Dose: 3 ml Amiodarone HCl (Cordarone) 200 mg PO DAILY SHAHID Last Admin: 08/30/18 09:29 Dose: 200 mg Apixaban (Eliquis) 2.5 mg PO BID [facility] Last Admin: 08/30/18 09:29 Dose: 2.5 mg Atorvastatin Calcium (Lipitor) 10 mg PO QHS [facility] Last Admin: 08/29/18 22:11 Dose: 10 mg Dextrose (D50w Syringe) 0 gm IV X1 PRN; Protocol PRN Reason: Hypoglycemia Furosemide (Lasix) 40 mg IV BIDLX [facility] Last Admin: 08/30/18 09:32 Dose: 40 mg Glucagon () 1 mg IM .X1 PRN PRN Reason: Hypoglycemia Guaifenesin (Mucinex) 1,200 mg PO Q12H [facility] Last Admin: 08/30/18 11:10 Dose: 1,200 mg Insulin Human Lispro (Humalog Kwikpen (Bkc)) 0 unit SQ TIDAC [facility]; Protocol Last Admin: 08/30/18 11:10 Dose: 2 units Magnesium Hydroxide (Milk Of Magnesia) 30 ml PO DAILY PRN PRN Reason: Constipation Metoprolol Succinate (Toprol Xl (Beta Phill)) 25 mg PO BID [facility] Last Admin: 08/30/18 09:30 Dose: 25 mg Multivitamins/Minerals (Multivitamin With Minerals) 1 tablet PO DAILY@0800 [facility] Last Admin: 08/30/18 09:29 Dose: 1 tablet Ondansetron HCl (Zofran) 4 mg IV Q8H PRN PRN PRN Reason: NAUSEA Sodium Chloride () 5 - 15 ml IV UD PRN PRN Reason: SALINE FLUSH Last Admin: 08/29/18 22:11 Dose: 10 ml Tamsulosin HCl (Flomax) 0.4 mg PO DAILY@0830 [facility] Last Admin: 08/30/18 09:29 Dose: 0.4 mg - Past Medical History Past Medical History (Chronic Problems): Chronic Problems (Last Updated 08/29/18 @ 11:40 by Urmila Gardner MD) Respiratory failure (Chronic) Chronic kidney disease (Chronic) Myelodysplastic syndrome (Chronic) Chronic atrial fibrillation (Chronic) Anemia (Chronic) BPH (benign prostatic hyperplasia) (Chronic) Arthritis (Chronic) Essential hypertension (Chronic) Thrombocytopenia (Chronic) MDS (myelodysplastic syndrome), low grade (Chronic) Hyperlipidemia (Chronic) Type 2 diabetes mellitus (Chronic) COPD (chronic obstructive pulmonary disease) (Chronic) - Social History Marital Status: Smoking Status: Former smoker Alcohol: None Drugs: None - Family History Maternal Family History: Family History (Last Reviewed 08/28/18 @ 15:48 by Ray Oakley DO) Mother Cancer, Onset Age: 59 Father Cancer, Onset Age: 44 Brother Cancer, Onset Age: 78 Son CVA (cerebral vascular accident) Diabetes Mother Cancer Review of Systems Constitutional: Reports: Weakness. Denies: Anorexia, Chills, Fever, Fatigue Eyes: Denies: Vision Change HEENT: Denies: Head Aches Cardiovascular: Reports: Edema, Light Headedness, Orthopnea, Paroxysmal Noc. Dyspnea. Denies: Chest Pain, Palpitations, Syncope Respiratory: Reports: Cough, Shortness of breath upon exertion, Wheezing. Denies: Hemoptysis, Pleuritic Pain Gastrointestinal: Denies: Abdominal Pain, Constipation, Diarrhea, Hematemesis, Hematochezia, Nausea, Vomiting Genitourinary: Reports: Frequency. Denies: Dysuria, Hematuria, Hesitancy, Incontinence, Retention, Urgency Musculoskeletal: Reports: - - rt foot pain from trauma, - - BLE edema. Denies: Arm Pain Skin: Reports: Wounds - rt dorsum foot red, tender Neurological: Reports: Balance problems, - - gen weakness Psychiatric: Denies: Anxiety, Depression Hematologic/ Lymphatic: Reports: Anemia - MDS. Denies: Hx of blood clot Patient Problems: Active and Suspected Problems (Last Updated 08/29/18 @ 11:40 by Urmila Gardner MD) Symptomatic anemia (Acute) Contusion of right foot (Acute) Elevated troponin (Acute) (HFpEF) heart failure with preserved ejection fraction (Acute) - Physical Exam General: Alert, Oriented x3, Cooperative, No apparent distress HEENT: PERRLA, EOMI Oral: Dry Mucosa Neck: JVD, Bilateral Lungs: Rhonchi, Wheezes Cardiovascular: Irregular Rate - afib, Murmur Abdomen: Bowel Sounds Present, Soft, Non Tender, Non-Distended, Obese Extremities: Edema - BLE Skin: - - red, tender rt foot Musculoskeletal: No Muscle Wasting Neurological: Cranial nerves II-XII grossly intact Psych/Mental Status: Normal Affect, Appropriate, Alert and oriented to time, place, person, mood and affect Vital Signs Temp Pulse Resp BP Pulse Ox 98.7 F 73 16 109/58 L 95 08/30/18 09:26 08/30/18 11:00 08/30/18 09:26 08/30/18 09:26 08/30/18 09:26 Oxygen Flow Rate (L/min) 2 Oxygen Delivery Method Nasal Cannula Weight: 102.4 kg Body Mass Index (BMI) 32.2 Orthostatic Vital Signs Start: 08/29/18 05:16 Freq: q24h Status: Active Protocol: Activity Type Activity Date Activity User E-Sign Co-Sign Detail Recorded Client Recorded Date Recorded By Document 08/29/18 05:16 SOFÍA [id number] 08/29/18 05:26 [place] 08/29/18 05:16 Orthostatic Vitals Standing -Blood Pressure (90/60-120/80) 125/54 H -Extremity Use Left Arm -Pulse Rate (60-100) 83 Sitting -Blood Pressure (90/60-120/80) 107/53 L -Extremity Use Left Arm -Pulse Rate (60-100) 73 Lying -Blood Pressure (90/60-120/80) 123/64 H -Extremity Use Left Arm -Pulse Rate (60-100) 80 Intake and Output for Last 24 Hours 08/28/18 08/29/18 08/30/18 23:59 23:59 23:59 Intake Total 1130 / 1130 1240 / 1240 850 / 850 Output Total 1150 / 1150 1600 / 1600 1725 / 1725 Balance -20 / -20 -360 / -360 -875 / -875 Microbiology Past 72 Hours 08/28/18 13:35 Stool Occult Blood ([facility]) - Final Stool Laboratory Tests Past 24 Hrs 08/28/18 08/28/18 08/30/18 14:50 14:50 05:30 WBC 4.4 RBC 3.01 L Hgb 8.5 L Hct 27.1 L MCV 90.0 MCH 28.2 MCHC 31.4 L RDW 24.0 H RDW Differential 72.7 H Plt Count 78 L Immature Gran % (Auto) 0.900 Neut % (Auto) 70.8 H Lymph % (Auto) 13.2 L [place] % (Auto) 14.2 H Eos % (Auto) 0.7 Baso % (Auto) 0.2 Absolute Neuts (auto) 3.1 Absolute Lymphs (auto) 0.58 L Total Counted Not Reportable Differential Comment COMMENT Sodium Potassium Chloride Carbon Dioxide Anion Gap BUN Creatinine Estim Creat Clear Calc Est GFR (MDRD) Af Amer Est GFR (MDRD) Non-Af BUN/Creatinine Ratio Glucose Calcium Crossmatch See Detail See Detail 08/30/18 05:30 WBC RBC Hgb Hct MCV MCH MCHC RDW RDW Differential Plt Count Immature Gran % (Auto) Neut % (Auto) Lymph % (Auto) [place] % (Auto) Eos % (Auto) Baso % (Auto) Absolute Neuts (auto) Absolute Lymphs (auto) Total Counted Differential Comment Sodium 139 Potassium 4.3 Chloride 101 Carbon Dioxide 32.0 Anion Gap 6 BUN 36 H Creatinine 1.98 H Estim Creat Clear Calc 30.21 Est GFR (MDRD) Af Amer 42 L Est GFR (MDRD) Non-Af 35 L BUN/Creatinine Ratio 18.2 Glucose 112 H Calcium 8.4 L Crossmatch POC Glucose 08/30/18 08/30/18 08/29/18 11:08 06:41 22:10 POC Glucose 191 H 116 H 141 H 08/29/18 16:32 POC Glucose 126 H Clinical Impression(s) from Imaging Studies Chest X-Ray 08/28/18 12:17 IMPRESSION: Left upper lung infiltrate. Electronically Signed: Wing Grubbs MD at 14:09 EST , Service support , Foot X-Ray 08/28/18 12:18 Assessment/Plan All Active Problems (Last Updated 08/29/18 @ 11:40 by Urmila Gardner MD) Symptomatic anemia (Acute) Contusion of right foot (Acute) Elevated troponin (Acute) (HFpEF) heart failure with preserved ejection fraction (Acute) 1. ROMAIN on CKD stage 3 likely hemodynamically mediated from anemia. Baseline creatinine 1.4, up to 3.22 on 06/24/18. Creatinine 2.39 on admit improved to 1.98. Echo with normal LV and RV EF. Mod LAE, and IGOR. Check renal US r/o urinary retention 2. Anemia with MDS, iron stores low. Consider iv iron 3. COPD on home oxygen 4. HTN stable 5. DM2 stable 6. Chronic atrial fibrillation on cordarone, eliquis. Check TSH 7. Hx BPH 8. CHF with preserved EF
--- NOTE | 2018-08-30 14:04 | PCM.PROGNOTE ---
Patient Problems: Active and Suspected Problems (Last Updated 08/29/18 @ 11:40 by Urmila Gardner MD) Symptomatic anemia (Acute) Contusion of right foot (Acute) Elevated troponin (Acute) (HFpEF) heart failure with preserved ejection fraction (Acute) Subjective: Pt remains somewhat SOB, with some LE edema. He has a cough with clear sputum production. No fever or chills. He states he did not know he had a hx of MDS/anemia. He states he does not see anyone for this. He does not have blood in his stool and occult blood was negative. He did receive blood while here. No CP. - Physical Exam General: Alert, Oriented x3, Cooperative HEENT: Atraumatic, PERRLA, EOMI, Normocephalic Neck: Supple, No JVD, Negative Carotid Bruits Lungs: Diminished, Wheezes Cardiovascular: No murmurs, Irregular Rate Abdomen: Bowel Sounds Present, Soft, Non Tender Extremities: Capillary Refill Less than 3 Seconds, Edema Skin: No rashes, No breakdown Musculoskeletal: No Tenderness to Palpation of Joints or Extremities Neurological: Cranial nerves II-XII grossly intact Psych/Mental Status: Normal Affect, Appropriate Vital Signs Temp Pulse Resp BP Pulse Ox 98.7 F 73 16 109/58 L 95 08/30/18 09:26 08/30/18 11:00 08/30/18 09:26 08/30/18 09:26 08/30/18 09:26 Oxygen Flow Rate (L/min) 2 Oxygen Delivery Method Nasal Cannula Weight: 225 lb 12.054 oz Body Mass Index (BMI) 32.2 Orthostatic Vital Signs Start: 08/29/18 05:16 Freq: q24h Status: Active Protocol: Activity Type Activity Date Activity User E-Sign Co-Sign Detail Recorded Client Recorded Date Recorded By Document 08/29/18 05:16 [place] [id number] 08/29/18 05:26 [place] 08/29/18 05:16 Orthostatic Vitals Standing -Blood Pressure (90/60-120/80) 125/54 H -Extremity Use Left Arm -Pulse Rate (60-100) 83 Sitting -Blood Pressure (90/60-120/80) 107/53 L -Extremity Use Left Arm -Pulse Rate (60-100) 73 Lying -Blood Pressure (90/60-120/80) 123/64 H -Extremity Use Left Arm -Pulse Rate (60-100) 80 Intake and Output for Last 24 Hours 08/28/18 08/29/18 08/30/18 23:59 23:59 23:59 Intake Total 1130 / 1130 1240 / 1240 850 / 850 Output Total 1150 / 1150 1600 / 1600 1725 / 1725 Balance -20 / -20 -360 / -360 -875 / -875 Microbiology Past 72 Hours 08/28/18 13:35 Stool Occult Blood ([facility]) - Final Stool Laboratory Tests Past 24 Hrs 08/28/18 08/30/18 08/30/18 14:50 05:30 05:30 WBC 4.4 RBC 3.01 L Hgb 8.5 L Hct 27.1 L MCV 90.0 MCH 28.2 MCHC 31.4 L RDW 24.0 H RDW Differential 72.7 H Plt Count 78 L Immature Gran % (Auto) 0.900 Neut % (Auto) 70.8 H Lymph % (Auto) 13.2 L [place] % (Auto) 14.2 H Eos % (Auto) 0.7 Baso % (Auto) 0.2 Absolute Neuts (auto) 3.1 Absolute Lymphs (auto) 0.58 L Total Counted Not Reportable Differential Comment COMMENT Sodium 139 Potassium 4.3 Chloride 101 Carbon Dioxide 32.0 Anion Gap 6 BUN 36 H Creatinine 1.98 H Estim Creat Clear Calc 30.21 Est GFR (MDRD) Af Amer 42 L Est GFR (MDRD) Non-Af 35 L BUN/Creatinine Ratio 18.2 Glucose 112 H Calcium 8.4 L Crossmatch See Detail POC Glucose 08/30/18 08/30/18 08/29/18 11:08 06:41 22:10 POC Glucose 191 H 116 H 141 H 08/29/18 16:32 POC Glucose 126 H Medical Necessity - Tobacco Use Smoking Status: Former smoker Tobacco Use: Non-smoker Assessment/Plan All Active Problems (Last Updated 08/29/18 @ 11:40 by Urmila Gardner MD) Symptomatic anemia (Acute) Contusion of right foot (Acute) Elevated troponin (Acute) (HFpEF) heart failure with preserved ejection fraction (Acute) 1. Acute on chronic diastolic CHF complicated by Pulmonary HTN - EF 60%. Indeterminate trop. continue lasix and metoprolol. No RORY 2/2 CKD. Last echo May 2018. Stable on 2 lpm. Repeat CXR. 2. Indeterminate trop with Hx of CAD - likely 2/2 above. EKG without acute changes. Last cath May 2018. No interventions at that time. 3. Acute on chronic anemia - hx MDS. s/p 1 unit PRBC. Stool occult neg. Iron studies normal. 4. Chronic AFib - eliquis, amio, metoprolol. Had cardioversion in july 2018. 5. CKD III - creatinine improving despite diuresis. Nephrology consulted, Renal ultrasound pending. 6. COPD with chronic hypoxic respiratory failure - no acute exacerbation. 7. T2DM - metformin held, SSI. 8. HTN - stable 9. BPH - flomax 10. Debility with fall - foot injury without fracture on xr. continue PTOT. DVT ppx: jojo CALABRESE planning: SNF placement. This patient was seen by Michael Philippe PA-C under the supervision of Doctor Coy.
[2018-08-30 17:00] LABS: Bedside Glucose 137 mg/dL (70-110)
[2018-08-30] MEDS: Atorvastatin Calcium 10 MG Tablet PO (22:54)
[2018-08-30 23:20] LABS: Bedside Glucose 158 mg/dL (70-110)
[2018-08-31] VITALS (15 sets, daily range): BP systolic 108–125; BP diastolic 55–68; PULSE 72–83; RESP 16–20; TEMP 36.4–36.6; O2SAT 93–96
--- NOTE | 2018-08-31 03:20 | NURSING ---
Paged RT to place pt. on bipap. Pt. increased wheezing and respirations 24. Pt. was placed on bipap and tolerating well.
[2018-08-31 07:05] LABS: Anion Gap 5 (5-15); BUN 32 mg/dL (7-18); BUN/Creat Ratio 16.6 RATIO (10-20); Calcium,Total 8.4 mg/dL (8.5-10.1); Chloride 102 mmol/L (98-107); Creatinine, Serum 1.93 mg/dL (0.70-1.30); EST Glomerular Filtration Rate 36 mL/min (>60); Est Glom Filt Rate - Afr Amer 43 mL/min (>60); Estimated Creatinine Clearance 30.99 ml/min; Glucose 111 mg/dL (74-106); Sodium Level 139 mmol/L (136-145); Thyroid Stim Hormone (TSH) 4.53 uIU/mL (0.358-3.74)
[2018-08-31 07:06] LABS: Absolute Lymphocyte Count 0.94 X10^3/ul (0.83-4.51); Absolute Neutrophil Count 2.9 X10^3/uL (2.0-7.7); Basophil# 0.01 X10^3/uL; Basophil% 0.3 % (0-1); Eosinophil# 0.03 X10^3/uL; Eosinophils% 0.8 % (0-5); Hematocrit 26.7 % (40-54); Hemoglobin 8.2 g/dl (13.0-16.5); Lymphocyte # 0.94 X10^3/ul (4.0); Mean Corp Hgb Conc 30.7 g/gl (32-36); Mean Corpuscular Hgb 27.8 pg (27.0-32.0); Mean Corpuscular Volume 90.5 fL (80-94); Neutrophil % 74.1 % (47-70); Platelet Count 73 K/mm3 (150-450); RBC Distribution Width CV 23.7 % (11.6-14.6); RBC Distribution Width SD 72.4 fl (35.1-43.9); Red Blood Count 2.95 M/mm3 (4.6-6.2); White Blood Count 3.9 K/mm3 (4.4-11.0)
[2018-08-31 07:10] LABS: Differential Indicated SCAN CRITERIA MET; POSITIVE COUNT NO; POSITIVE DIFFERENTIAL NO; POSITIVE MORPHOLOGY YES
[2018-08-31 07:11] LABS: Bedside Glucose 118 mg/dL (70-110)
[2018-08-31 07:22] LABS: Anisocytosis 2+; Differential Comment SCAN; Hypochromasia 1+; Microcytosis 1+; Platelet Estimate MOD DEC (ADEQ); Platelet Morphology LARGE; Polychromasia 1+; Schistocytes RARE
[2018-08-31 07:23] LABS: Tear Drop Cell 1+
[2018-08-31] MEDS: Albuterol 2.5 MG/3 ML VIAL.NEB. INHALATION (08:05)
[2018-08-31] MEDS: guaiFENesin 1,200 MG Tablet 1200 MG PO ×2 (09:00→22:56)
[2018-08-31] MEDS: Metoprolol(XL)Succ 25 MG Tablet PO ×2 (09:00→22:56)
[2018-08-31] MEDS: Tamsulosin HCl 0.4 MG Capsule PO (09:00)
[2018-08-31] MEDS: Multivitamins,Ther W-Minerals Tablet 1 TABLET PO (09:00)
[2018-08-31] MEDS: Furosemide 40 MG/4 ML Vial IV ×2 (09:00→17:52)
[2018-08-31] MEDS: Amiodarone 200 MG Tablet PO (09:00)
--- NOTE | 2018-08-31 09:00 | CASEMGMT ---
QING spoke with patient this am regarding which facility he would prefer to go to for rehab. After some discussion he asked SW to call [facility]. QING faxed referral to [facility] and also left a vm for Katie in admissions. Sharonda AMADO
[2018-08-31] MEDS: APIXABAN 2.5 MG TABLET PO ×2 (09:01→22:57)
--- NOTE | 2018-08-31 10:52 | CASEMGMT ---
Patient has healthcare POA and healthcare LW. He is aware they are not on file at [facility]. Sharonda CHAVEZ MSW
[2018-08-31] MEDS: Insulin Lispro 100 UNIT/ML INSULN.PEN SQ (11:25)
[2018-08-31 12:20] LABS: Bedside Glucose 283 mg/dL (70-110)
--- NOTE | 2018-08-31 12:32 | PN_ITS ---
Patient Problems: Active and Suspected Problems (Last Updated 08/29/18 @ 11:40 by Urmila Gardner MD) Symptomatic anemia (Acute) Contusion of right foot (Acute) Elevated troponin (Acute) (HFpEF) heart failure with preserved ejection fraction (Acute) Subjective: continues to be somewhat sob, edematous, and with a productive cough of dark sputum. No CP/heaviness. No fevers or chills. He has had decent output and drop in weight. - Physical Exam General: Alert, Oriented x3, Cooperative HEENT: Atraumatic, PERRLA, EOMI, Normocephalic Neck: Supple, No JVD, Negative Carotid Bruits Lungs: Rales, Wheezes Cardiovascular: Regular rate, No murmurs Abdomen: Bowel Sounds Present, Soft, Non Tender Extremities: Edema Skin: No rashes, No breakdown Musculoskeletal: No Tenderness to Palpation of Joints or Extremities Neurological: Cranial nerves II-XII grossly intact Psych/Mental Status: Normal Affect, Appropriate, Alert and oriented to time, place, person, mood and affect Vital Signs Temp Pulse Resp BP Pulse Ox 97.5 F L 75 16 125/56 H 96 08/31/18 08:58 08/31/18 11:00 08/31/18 08:58 08/31/18 08:58 08/31/18 08:58 Oxygen Flow Rate (L/min) 2 Oxygen Delivery Method Nasal Cannula Weight: 224 lb 6.889 oz Body Mass Index (BMI) 32.2 Orthostatic Vital Signs Start: 08/29/18 05:16 Freq: q24h Status: Active Protocol: Activity Type Activity Date Activity User E-Sign Co-Sign Detail Recorded Client Recorded Date Recorded By Document 08/29/18 05:16 [place] [id number] 08/29/18 05:26 [place] 08/29/18 05:16 Orthostatic Vitals Standing -Blood Pressure (90/60-120/80) 125/54 H -Extremity Use Left Arm -Pulse Rate (60-100) 83 Sitting -Blood Pressure (90/60-120/80) 107/53 L -Extremity Use Left Arm -Pulse Rate (60-100) 73 Lying -Blood Pressure (90/60-120/80) 123/64 H -Extremity Use Left Arm -Pulse Rate (60-100) 80 Intake and Output for Last 24 Hours 08/29/18 08/30/18 08/31/18 23:59 23:59 23:59 Intake Total 1240 / 1240 1340 / 1340 300 / 300 Output Total 1600 / 1600 3075 / 3075 725 / 725 Balance -360 / -360 -1735 / -1735 -425 / -425 Microbiology Past 72 Hours 08/28/18 13:35 Stool Occult Blood ([facility]) - Final Stool Laboratory Tests Past 24 Hrs 08/31/18 08/31/18 06:10 06:10 WBC 3.9 L RBC 2.95 L Hgb 8.2 L Hct 26.7 L MCV 90.5 MCH 27.8 MCHC 30.7 L RDW 23.7 H RDW Differential 72.4 H Plt Count 73 L Immature Gran % (Auto) 0.800 Neut % (Auto) 74.1 H Lymph % (Auto) 24.0 [place] % (Auto) 0.0 Eos % (Auto) 0.8 Baso % (Auto) 0.3 Absolute Neuts (auto) 2.9 Absolute Lymphs (auto) 0.94 Total Counted Not Reportable Differential Comment SCAN Platelet Estimate MOD DEC Plt Morphology Comment LARGE Polychromasia 1+ Hypochromasia 1+ Anisocytosis 2+ Microcytosis 1+ Tear Drop Cells 1+ Schistocytes RARE Sodium 139 Potassium 4.0 Chloride 102 Carbon Dioxide 32.0 Anion Gap 5 BUN 32 H Creatinine 1.93 H Estim Creat Clear Calc 30.99 Est GFR (MDRD) Af Amer 43 L Est GFR (MDRD) Non-Af 36 L BUN/Creatinine Ratio 16.6 Glucose 111 H Calcium 8.4 L TSH 4.53 H POC Glucose 08/31/18 08/31/18 08/30/18 11:23 07:01 22:52 POC Glucose 283 H 118 H 158 H 08/30/18 16:54 POC Glucose 137 H Medical Necessity - Tobacco Use Smoking Status: Former smoker Tobacco Use: Non-smoker Assessment/Plan All Active Problems (Last Updated 08/29/18 @ 11:40 by Urmila Gardner MD) Symptomatic anemia (Acute) Contusion of right foot (Acute) Elevated troponin (Acute) (HFpEF) heart failure with preserved ejection fraction (Acute) 1. Acute on chronic diastolic CHF complicated by Pulmonary HTN - EF 60%. Continue diuresis. Indeterminate trop. continue lasix and metoprolol. No RORY 2/2 CKD. Last echo May 2018. Stable on 2 lpm. Repeat CXR. 2. Indeterminate trop with Hx of CAD - likely 2/2 above. EKG without acute changes. Last cath May 2018. No interventions at that time. 3. Acute on chronic anemia - hx MDS. s/p 1 unit PRBC. Stool occult neg. Iron studies normal. 4. Chronic AFib - eliquis, amio, metoprolol. Had cardioversion in july 2018. 5. CKD III - creatinine improving despite diuresis. Nephrology consulted, Renal ultrasound pending. 6. COPD with chronic hypoxic respiratory failure - no acute exacerbation. Possibly a hx of emphysema and bronchiectasis as well. F/u as o/p with pulmonary. 7. T2DM - metformin held, SSI. 8. HTN - stable 9. BPH - flomax 10. Debility with fall - foot injury without fracture on xr. continue PTOT. DVT ppx: jojo CALABRESE planning: SNF placement. This patient was seen by Michael Philippe PA-C under the supervision of Doctor Coy.
[2018-08-31] MEDS: Ipratropium/Albuterol Sulfate 3 ML AMPUL.NEB INHALATION ×2 (13:34→19:25)
--- NOTE | 2018-08-31 13:56 | CASEMGMT ---
QING received a call from Katie at [facility] and they can accept patient. QING let patient know this information. Plan: d/c to [facility] when ready Sharonda AMADO
--- NOTE | 2018-08-31 14:29 | PCM.PN.REN ---
Patient Problems: Active and Suspected Problems (Last Updated 08/29/18 @ 11:40 by Urmila Gardner MD) Symptomatic anemia (Acute) Contusion of right foot (Acute) Elevated troponin (Acute) (HFpEF) heart failure with preserved ejection fraction (Acute) Subjective: Breathing improved. Still with leg edema Admits to eating trail bologni, canned soups, pizza, etc. Has not been following a low salt diet at home and has been cutting back his lasix due to complaints of frequent urination and trouble walking to BR due to SOB. Complains of dry mouth. - Physical Exam General: Alert, Oriented x3, Cooperative, No apparent distress Neck: Supple Lungs: Clear to auscultation Cardiovascular: Regular rate Abdomen: Bowel Sounds Present, Soft, Non Tender, Non-Distended Extremities: No edema Skin: No rashes Musculoskeletal: No Muscle Wasting Neurological: Cranial nerves II-XII grossly intact Psych/Mental Status: Normal Affect, Appropriate, Alert and oriented to time, place, person, mood and affect Vital Signs Temp Pulse Resp BP Pulse Ox 97.5 F L 77 16 125/56 H 96 08/31/18 08:58 08/31/18 13:34 08/31/18 13:34 08/31/18 08:58 08/31/18 08:58 Oxygen Flow Rate (L/min) 2 Oxygen Delivery Method Nasal Cannula Weight: 101.8 kg Body Mass Index (BMI) 32.2 Orthostatic Vital Signs Start: 08/29/18 05:16 Freq: q24h Status: Active Protocol: Activity Type Activity Date Activity User E-Sign Co-Sign Detail Recorded Client Recorded Date Recorded By Document 08/29/18 05:16 SOFÍA [id number] 08/29/18 05:26 [place] 08/29/18 05:16 Orthostatic Vitals Standing -Blood Pressure (90/60-120/80) 125/54 H -Extremity Use Left Arm -Pulse Rate (60-100) 83 Sitting -Blood Pressure (90/60-120/80) 107/53 L -Extremity Use Left Arm -Pulse Rate (60-100) 73 Lying -Blood Pressure (90/60-120/80) 123/64 H -Extremity Use Left Arm -Pulse Rate (60-100) 80 Intake and Output for Last 24 Hours 08/29/18 08/30/18 08/31/18 23:59 23:59 23:59 Intake Total 1240 / 1240 1340 / 1340 300 / 300 Output Total 1600 / 1600 3075 / 3075 725 / 725 Balance -360 / -360 -1735 / -1735 -425 / -425 Microbiology Past 72 Hours 08/31/18 Unknown Gram Stain - Final Sputum, Expectorated/Coughed 08/28/18 13:35 Stool Occult Blood ([facility]) - Final Stool Laboratory Tests Past 24 Hrs 08/31/18 08/31/18 06:10 06:10 WBC 3.9 L RBC 2.95 L Hgb 8.2 L Hct 26.7 L MCV 90.5 MCH 27.8 MCHC 30.7 L RDW 23.7 H RDW Differential 72.4 H Plt Count 73 L Immature Gran % (Auto) 0.800 Neut % (Auto) 74.1 H Lymph % (Auto) 24.0 [place] % (Auto) 0.0 Eos % (Auto) 0.8 Baso % (Auto) 0.3 Absolute Neuts (auto) 2.9 Absolute Lymphs (auto) 0.94 Total Counted Not Reportable Differential Comment SCAN Platelet Estimate MOD DEC Plt Morphology Comment LARGE Polychromasia 1+ Hypochromasia 1+ Anisocytosis 2+ Microcytosis 1+ Tear Drop Cells 1+ Schistocytes RARE Sodium 139 Potassium 4.0 Chloride 102 Carbon Dioxide 32.0 Anion Gap 5 BUN 32 H Creatinine 1.93 H Estim Creat Clear Calc 30.99 Est GFR (MDRD) Af Amer 43 L Est GFR (MDRD) Non-Af 36 L BUN/Creatinine Ratio 16.6 Glucose 111 H Calcium 8.4 L TSH 4.53 H POC Glucose 08/31/18 08/31/18 08/30/18 11:23 07:01 22:52 POC Glucose 283 H 118 H 158 H 08/30/18 16:54 POC Glucose 137 H Medical Necessity - Tobacco Use Smoking Status: Former smoker Tobacco Use: Non-smoker Assessment/Plan All Active Problems (Last Updated 08/29/18 @ 11:40 by Urmila Gardner MD) Symptomatic anemia (Acute) Contusion of right foot (Acute) Elevated troponin (Acute) (HFpEF) heart failure with preserved ejection fraction (Acute) 1. ROMAIN on CKD stage 3 likely hemodynamically mediated. Creatinine stable at 1.9 today. Baseline creatinine 1.4, up to 3.22 on 06/24/18. Renal US no hydro. +echogenic kidneys. 2. Anemia with MDS, iron stores low. Consider iv iron 3. COPD on home oxygen 4. HTN stable 5. DM2 stable 6. Chronic atrial fibrillation on cordarone, eliquis. TSH wnl 7. Hx BPH 8. CHF, fluid overload due to dietary indiscretion. Discussed need to follow low salt diet.
[2018-08-31 16:25] LABS: Bedside Glucose 119 mg/dL (70-110)
[2018-08-31] MEDS: Atorvastatin Calcium 10 MG Tablet PO (22:56)
[2018-08-31 23:25] LABS: Bedside Glucose 148 mg/dL (70-110)
[2018-09-01] VITALS (10 sets, daily range): BP systolic 72–119; BP diastolic 31–60; PULSE 78–96; RESP 17–18; TEMP 36.4–37.2; O2SAT 93–100
[2018-09-01] MEDS: Ipratropium/Albuterol Sulfate 3 ML AMPUL.NEB INHALATION ×2 (01:00→13:01)
[2018-09-01 07:15] LABS: Bedside Glucose 128 mg/dL (70-110)
--- NOTE | 2018-09-01 08:55 | PCM.PN.REN ---
Patient Problems: Active and Suspected Problems (Last Updated 08/29/18 @ 11:40 by Urmila Gardner MD) Symptomatic anemia (Acute) Contusion of right foot (Acute) Elevated troponin (Acute) (HFpEF) heart failure with preserved ejection fraction (Acute) Subjective: complains of fatigue, tired. - Physical Exam General: Alert, Oriented x3, Cooperative, No apparent distress Lungs: Clear to auscultation, Diminished Cardiovascular: Irregular Rate Abdomen: Bowel Sounds Present, Soft, Non Tender, Non-Distended, Obese Extremities: Edema - mild BLE Musculoskeletal: No Muscle Wasting Psych/Mental Status: Alert and oriented to time, place, person, mood and affect Vital Signs Temp Pulse Resp BP Pulse Ox 97.6 F L 96 18 72/31 L 97 09/01/18 02:55 09/01/18 07:23 09/01/18 02:55 09/01/18 07:23 09/01/18 07:56 Oxygen Flow Rate (L/min) 2 Oxygen Delivery Method Nasal Cannula Weight: 100.9 kg Body Mass Index (BMI) 32.2 Orthostatic Vital Signs Start: 08/29/18 05:16 Freq: q24h Status: Active Protocol: Activity Type Activity Date Activity User E-Sign Co-Sign Detail Recorded Client Recorded Date Recorded By Document 08/29/18 05:16 MD [id number] 08/29/18 05:26 [place] 08/29/18 05:16 Orthostatic Vitals Standing -Blood Pressure (90/60-120/80) 125/54 H -Extremity Use Left Arm -Pulse Rate (60-100) 83 Sitting -Blood Pressure (90/60-120/80) 107/53 L -Extremity Use Left Arm -Pulse Rate (60-100) 73 Lying -Blood Pressure (90/60-120/80) 123/64 H -Extremity Use Left Arm -Pulse Rate (60-100) 80 Intake and Output for Last 24 Hours 08/30/18 08/31/18 09/01/18 23:59 23:59 23:59 Intake Total 1340 / 1340 780 / 780 340 / 340 Output Total 3075 / 3075 1325 / 1325 225 / 225 Balance -1735 / -1735 -545 / -545 115 / 115 Microbiology Past 72 Hours 08/31/18 Unknown Gram Stain - Final Sputum, Expectorated/Coughed Laboratory Tests Past 24 Hrs 09/01/18 08:45 Sodium Pending Potassium Pending Chloride Pending Carbon Dioxide Pending BUN Pending Creatinine Pending Est GFR (MDRD) Af Amer Pending Est GFR (MDRD) Non-Af Pending BUN/Creatinine Ratio Pending Glucose Pending Calcium Pending Phosphorus Pending Albumin Pending POC Glucose 09/01/18 08/31/18 08/31/18 07:04 23:08 16:19 POC Glucose 128 H 148 H 119 H 08/31/18 11:23 POC Glucose 283 H Medical Necessity - Tobacco Use Smoking Status: Former smoker Tobacco Use: Non-smoker Assessment/Plan All Active Problems (Last Updated 08/29/18 @ 11:40 by Urmila Gardner MD) Symptomatic anemia (Acute) Contusion of right foot (Acute) Elevated troponin (Acute) (HFpEF) heart failure with preserved ejection fraction (Acute) 1. ROMAIN on CKD stage 3 likely hemodynamically mediated. Check labs today. Baseline creatinine 1.4, up to 3.22 on 06/24/18. Renal US no hydro. +echogenic kidneys. Follow up in office 1-2 wks 2. Anemia with MDS, iron stores low. Consider iv iron 3. COPD on home oxygen 4. HTN stable 5. DM2 stable 6. Chronic atrial fibrillation on cordarone, eliquis. TSH wnl 7. Hx BPH 8. CHF, fluid overload due to dietary indiscretion. Discussed need to follow low salt diet.
[2018-09-01 09:15] LABS: Albumin, Serum 3.4 g/dL (3.2-5.0); BUN 30 mg/dL (7-18); Calcium,Total 8.5 mg/dL (8.5-10.1); Chloride 100 mmol/L (98-107); Creatinine, Serum 1.76 mg/dL (0.70-1.30); EST Glomerular Filtration Rate 40 mL/min (>60); Est Glom Filt Rate - Afr Amer 48 mL/min (>60); Estimated Creatinine Clearance 33.99 ml/min; Glucose 114 mg/dL (74-106); Phosphorus 3.6 mg/dL (2.5-4.9); Sodium Level 138 mmol/L (136-145)
[2018-09-01] MEDS: guaiFENesin 1,200 MG Tablet 1200 MG PO (09:32)
[2018-09-01] MEDS: Metoprolol(XL)Succ 25 MG Tablet PO (09:32)
[2018-09-01] MEDS: Multivitamins,Ther W-Minerals Tablet 1 TABLET PO (09:32)
[2018-09-01] MEDS: Amiodarone 200 MG Tablet PO (09:32)
[2018-09-01] MEDS: Tamsulosin HCl 0.4 MG Capsule PO (09:32)
[2018-09-01] MEDS: APIXABAN 2.5 MG TABLET PO (09:32)
[2018-09-01] MEDS: Furosemide 40 MG/4 ML Vial IV (09:35)
[2018-09-01] MEDS: 0.9% NaCl Peripheral Flush Adult/Peds IV (09:36)
[2018-09-01 10:43] LABS: T4 Free Direct 1.31 ng/dL (0.76-1.46)
[2018-09-01 11:46] LABS: Bedside Glucose 137 mg/dL (70-110)
--- NOTE | 2018-09-01 12:14 | PCM.TXEXTCAR ---
- Diet 08/28/18 17:03 Diet: Cardiac/Low Cholesterol Food consistency:: Regular Liquid Consistency:: Regular/Thin - Routine Orders/Code Status Suppository Type: Dulcolax 10mg Suppository Frequency: Daily PRN O2 Frequency: Continuous Keep PO Greater than or Equal to (%): 89 Routine Lab Work: CBC - 1 week, BMP - 3 days Code Status: Full Code - Wound(s) R Knee Wound Type: Abrasion - Therapies Physical Therapy: Eval and Treat Occupational Therapy: Eval and Treat - Problem/Diagnosis (1) (HFpEF) heart failure with preserved ejection fraction Status: Acute Current Visit: Yes (2) Chronic atrial fibrillation Status: Chronic Current Visit: Yes (3) Chronic kidney disease Status: Chronic Current Visit: Yes (4) Myelodysplastic syndrome Status: Chronic Current Visit: Yes (5) BPH (benign prostatic hyperplasia) Status: Chronic Current Visit: No (6) COPD (chronic obstructive pulmonary disease) Status: Chronic Current Visit: No (7) Essential hypertension Status: Chronic Current Visit: No (8) Hyperlipidemia Status: Chronic Current Visit: No (9) Type 2 diabetes mellitus Status: Chronic Current Visit: No - Allergies/Procedures Done in Hospital Allergies/Adverse Reactions: Allergies codeine Adverse Reaction (Severe, Verified 08/28/18 12:09) Unknown Procedures: None - Type of Care/Length of Stay Estimated LOS: Convalescent Care Less Than 30 days Type of Care Needed: Skilled Rehab Potential: Fair Prognosis: Fair - Additional Orders/Day of Discharge Day of Discharge: 09/01/18 - Dietary and Speech Recommendations Dietitian Recommendations/Changes: Rec diet change to 1800 edgardo Cardiac / low sodium w/ fluid restriction - Follow Up Care Primary Care Physician: Roc Martinez MD [Primary Care Provider] - Please follow up with your Primary Care Physician in: 1-2 weeks Please Follow Up With: Maura Bradshaw DO When: 2 weeks Please Follow Up With: Marcelo Reynolds MD When: 2 weeks
--- NOTE | 2018-09-01 12:45 | CASEMGMT ---
Patient is ready for discharge to [facility] [place]. QING faxed orders to [facility]. Completed convalescent on [facility]. QING spoke with patient and he asked that SW set up transport. SW let him know it will be around $60 and they would bill him. QING called [facility] and arranged for patient to get picked up at via [employer] van. QING called Katie at [facility] and left her a vm letting her know. QING also notified RN, patient, and his son. All in agreement with d/c plan. Plan: d/c to [facility] [place] under skilled level of care on a convalescent stay. [facility] transported via [employer]. Sharonda CHAVEZ MSW
--- NOTE | 2018-09-01 14:46 | PCM.DC.SUM ---
Discharge Date and Diagnosis Date of Admission: 08/28/18 Date of Discharge: 09/01/18 - Primary Discharge Diagnosis Acute diastolic congestive heart failure exacerbation History of CAD Chronic atrial fibrillation Acute on chronic anemia, with history of MDS CKD stage III COPD with chronic hypoxic respiratory failure Type 2 diabetes mellitus Hypertension BPH Debility with fall - Secondary Discharge Diagnosis Chronic Problems (Last Updated 08/29/18 @ 11:40 by Urmila Gardner MD) Respiratory failure (Chronic) Chronic kidney disease (Chronic) Myelodysplastic syndrome (Chronic) Chronic atrial fibrillation (Chronic) Anemia (Chronic) BPH (benign prostatic hyperplasia) (Chronic) Arthritis (Chronic) Essential hypertension (Chronic) Thrombocytopenia (Chronic) MDS (myelodysplastic syndrome), low grade (Chronic) Hyperlipidemia (Chronic) Type 2 diabetes mellitus (Chronic) COPD (chronic obstructive pulmonary disease) (Chronic) Hospital Course and Treatment Imaging Results: RAD/Chest PA and Lateral IMPRESSION: Left upper lung infiltrate. Foot Xray IMPRESSION: No definite evidence for acute fracture seen. There is likely an os navicularis present. Please correlate with point tenderness in this region for subtle fractures US/Kidney and Bladder IMPRESSION: 1. Normal size kidneys without hydronephrosis. There is borderline increased cortical echogenicity of the kidneys, which could reflect change of long-standing medical renal disease. 2. Mild mural thickening of the normal capacity urinary bladder. 3. Small volume ascites in the right upper quadrant as well as very small left pleural effusion. RAD/Chest 1 View (Portable) IMPRESSION: Persistent left upper lobe infiltrate without interval change. Consultations: [facility] Operations: None Procedures: None Summary of Care Provided: Hospital course: The patient is a 82 year old M who presented to the emergency room with chief complaint of fatigue and weakness has been progressively working worsening over the past week. He had stopped taking his home Lasix about a week prior to presentation as well because of frequent bathroom trips. In the emergency room he appeared to have acute CHF exacerbation with rales on exam, increased lower extremity edema, an elevated BNP and chest x-ray consistent with CHF. He also recently had a fall and injured his right foot, and x-ray was obtained and did not have any fracture. He was admitted to the PCU and placed on IV Lasix for acute diastolic CHF exacerbation. He recently had an echocardiogram with an EF of 60% so a repeat was deferred. He appeared to have significant CKD and no history of seeing workday manager so Dr. Bradshaw was consulted. Renal ultrasound was obtained which demonstrated medical renal disease. His kidneys tolerated diuresis. Improved significantly with diuresis. He was weaned to 2 L of oxygen. He is not taking care of himself properly at home and had a recent fall with a foot injury so physical therapy and occupational therapy were ordered. He demonstrated significant debility and intermediate was recommended. Also of note he has an underlying history of myelodysplastic syndrome for which she has seen oncology in the past and he was significantly anemic on presentation. He was given 1 unit of packed red blood cells with good improvement. His stool occult blood was negative he had no evidence of bleeding so his Eliquis was continued to take for chronic A. fib. He was discharged to intermediate in stable condition. He will need to follow-up with his PCP in 1-2 weeks, nephrology in 2 weeks, his unarmed security officer in 2 weeks, and he will need to have a BMP checked in 3 days, CBC checked in 5 days. This patient was seen by Michael Philippe PA-C under the supervision of Doctor Coy. [] - Physical Exam General: Alert, Oriented x3, Cooperative HEENT: Atraumatic, PERRLA, EOMI, Normocephalic Neck: Supple, No JVD, Negative Carotid Bruits Lungs: Rales Cardiovascular: Regular rate, No murmurs Abdomen: Bowel Sounds Present, Soft, Non Tender Extremities: Capillary Refill Less than 3 Seconds, Edema Skin: No rashes, No breakdown Musculoskeletal: No Tenderness to Palpation of Joints or Extremities Neurological: Cranial nerves II-XII grossly intact Psych/Mental Status: Normal Affect, Appropriate, Alert and oriented to time, place, person, mood and affect Vital Signs Temp Pulse Resp BP Pulse Ox 98.9 F 81 17 112/57 L 93 09/01/18 09:28 09/01/18 13:00 09/01/18 13:00 09/01/18 09:28 09/01/18 09:28 Oxygen Flow Rate (L/min) 2 Oxygen Delivery Method Nasal Cannula Weight: 222 lb 7.143 oz Body Mass Index (BMI) 32.2 Intake and Output for Last 24 Hours 08/30/18 08/31/18 09/01/18 23:59 23:59 23:59 Intake Total 1340 / 1340 780 / 780 340 / 340 Output Total 3075 / 3075 1325 / 1325 225 / 225 Balance -1735 / -1735 -545 / -545 115 / 115 Microbiology Past 72 Hours 08/31/18 Unknown Gram Stain - Final Sputum, Expectorated/Coughed Respiratory Culture - Preliminary Appears to be normal respiratory jordan. Further studies to follow. Laboratory Tests Past 24 Hrs 09/01/18 09/01/18 08:45 08:45 Sodium 138 Potassium 4.0 Chloride 100 Carbon Dioxide 33.0 H BUN 30 H Creatinine 1.76 H Estim Creat Clear Calc 33.99 Est GFR (MDRD) Af Amer 48 L Est GFR (MDRD) Non-Af 40 L BUN/Creatinine Ratio 17.0 Glucose 114 H Calcium 8.5 Phosphorus 3.6 Albumin 3.4 Free T4 1.31 POC Glucose 09/01/18 09/01/18 08/31/18 11:38 07:04 23:08 POC Glucose 137 H 128 H 148 H 08/31/18 16:19 POC Glucose 119 H Discharge Diet: Low fat/ Low Cholesterol, 1800 Calorie Control Diet, 2000 mg Sodium Diet Home Medications: Medications to take at Discharge Metformin HCl [Glucophage] 1,000 mg PO DAILY 05/26/18 simvastatin 20 mg tablet 20 mg PO QHS #90 tab 05/31/18 amiodarone 200 mg tablet 200 mg PO DAILY #30 tab 06/21/18 tiotropium bromide 2.5 mcg/actuation mist for inhalation 2 puff INHALATION QDAY #1 ea 07/20/18 apixaban 2.5 mg tablet 2.5 mg PO BID #60 tab 08/13/18 guaifenesin ER 1,200 mg tablet, extended release 12 hr 1,200 mg PO Q12H #90 tab 08/13/18 tamsulosin 0.4 mg capsule 0.4 mg PO DAILY #90 cap 08/13/18 Albuterol Aerosols [Ventolin Aerosols] 2.5 mg INHALATION Q4H PRN PRN vial.neb. 09/01/18 Furosemide [Lasix] 40 mg PO BID #60 tablet 09/01/18 Metoprolol(XL)Succ [Toprol Xl (Beta Phill)] 25 mg PO BID tablet 09/01/18 Following Prescrptions Were Given to Patient: Furosemide [Lasix] 40 mg PO BID #60 tablet Primary Care Physician: Roc Martinez MD [Primary Care Provider] - Please follow up with your Primary Care Physician in: 1-2 weeks Please Follow Up With: Maura Bradshaw DO When: 2 weeks Please Follow Up With: Marcelo Reynolds MD When: 2 weeks Disposition: [facility] facility Minutes spent on discharge:: 35 Medical Necessity - Tobacco Use Smoking Status: Former smoker Tobacco Use: Non-smoker Meaningful Use Info Meaningful Use Diagnoses (Choose all that apply): CHF - CHF RORY/ARB ordered at discharge?: No Reason RORY/ARB not ordered?: Worsening renal disease Documented LVEF (%): 60
--- NOTE | 2018-09-01 14:53 | DS.PCM_ITS ---
Discharge Date and Diagnosis Date of Admission: 08/28/18 Date of Discharge: 09/01/18 - Primary Discharge Diagnosis Acute diastolic congestive heart failure exacerbation History of CAD Chronic atrial fibrillation Acute on chronic anemia, with history of MDS CKD stage III COPD with chronic hypoxic respiratory failure Type 2 diabetes mellitus Hypertension BPH Debility with fall - Secondary Discharge Diagnosis Chronic Problems (Last Updated 08/29/18 @ 11:40 by Urmila Gardner MD) Respiratory failure (Chronic) Chronic kidney disease (Chronic) Myelodysplastic syndrome (Chronic) Chronic atrial fibrillation (Chronic) Anemia (Chronic) BPH (benign prostatic hyperplasia) (Chronic) Arthritis (Chronic) Essential hypertension (Chronic) Thrombocytopenia (Chronic) MDS (myelodysplastic syndrome), low grade (Chronic) Hyperlipidemia (Chronic) Type 2 diabetes mellitus (Chronic) COPD (chronic obstructive pulmonary disease) (Chronic) Hospital Course and Treatment Imaging Results: RAD/Chest PA and Lateral IMPRESSION: Left upper lung infiltrate. Foot Xray IMPRESSION: No definite evidence for acute fracture seen. There is likely an os navicularis present. Please correlate with point tenderness in this region for subtle fractures US/Kidney and Bladder IMPRESSION: 1. Normal size kidneys without hydronephrosis. There is borderline increased cortical echogenicity of the kidneys, which could reflect change of long-standing medical renal disease. 2. Mild mural thickening of the normal capacity urinary bladder. 3. Small volume ascites in the right upper quadrant as well as very small left pleural effusion. RAD/Chest 1 View (Portable) IMPRESSION: Persistent left upper lobe infiltrate without interval change. Consultations: [facility] Operations: None Procedures: None Summary of Care Provided: Hospital course: The patient is a 82 year old M who presented to the emergency room with chief complaint of fatigue and weakness has been progressively working worsening over the past week. He had stopped taking his home Lasix about a week prior to presentation as well because of frequent bathroom trips. In the emergency room he appeared to have acute CHF exacerbation with rales on exam, increased lower extremity edema, an elevated BNP and chest x-ray consistent with CHF. He also recently had a fall and injured his right foot, and x-ray was obtained and did not have any fracture. He was admitted to the PCU and placed on IV Lasix for acute diastolic CHF exacerbation. He recently had an echocardiogram with an EF of 60% so a repeat was deferred. He appeared to have significant CKD and no history of seeing house mover so Dr. Bradshaw was consulted. Renal ultrasound was obtained which demonstrated medical renal disease. His kidneys tolerated diuresis. Improved significantly with diuresis. He was weaned to 2 L of oxygen. He is not taking care of himself properly at home and had a recent fall with a foot injury so physical therapy and occupational therapy were ordered. He demonstrated significant debility and alf was recommended. Also of note he has an underlying history of myelodysplastic syndrome for which she has seen oncology in the past and he was significantly anemic on presentation. He was given 1 unit of packed red blood cells with good improvement. His stool occult blood was negative he had no evidence of bleeding so his Eliquis was continued to take for chronic A. fib. He was discharged to alf in stable condition. He will need to follow-up with his PCP in 1-2 weeks, nephrology in 2 weeks, his director selection and administration in 2 weeks, and he will need to have a BMP checked in 3 days, CBC checked in 5 days. This patient was seen by Michael Philippe PA-C under the supervision of Doctor Coy. [] - Physical Exam General: Alert, Oriented x3, Cooperative HEENT: Atraumatic, PERRLA, EOMI, Normocephalic Neck: Supple, No JVD, Negative Carotid Bruits Lungs: Rales Cardiovascular: Regular rate, No murmurs Abdomen: Bowel Sounds Present, Soft, Non Tender Extremities: Capillary Refill Less than 3 Seconds, Edema Skin: No rashes, No breakdown Musculoskeletal: No Tenderness to Palpation of Joints or Extremities Neurological: Cranial nerves II-XII grossly intact Psych/Mental Status: Normal Affect, Appropriate, Alert and oriented to time, place, person, mood and affect Vital Signs Temp Pulse Resp BP Pulse Ox 98.9 F 81 17 112/57 L 93 09/01/18 09:28 09/01/18 13:00 09/01/18 13:00 09/01/18 09:28 09/01/18 09:28 Oxygen Flow Rate (L/min) 2 Oxygen Delivery Method Nasal Cannula Weight: 222 lb 7.143 oz Body Mass Index (BMI) 32.2 Intake and Output for Last 24 Hours 08/30/18 08/31/18 09/01/18 23:59 23:59 23:59 Intake Total 1340 / 1340 780 / 780 340 / 340 Output Total 3075 / 3075 1325 / 1325 225 / 225 Balance -1735 / -1735 -545 / -545 115 / 115 Microbiology Past 72 Hours 08/31/18 Unknown Gram Stain - Final Sputum, Expectorated/Coughed Respiratory Culture - Preliminary Appears to be normal respiratory jordan. Further studies to follow. Laboratory Tests Past 24 Hrs 09/01/18 09/01/18 08:45 08:45 Sodium 138 Potassium 4.0 Chloride 100 Carbon Dioxide 33.0 H BUN 30 H Creatinine 1.76 H Estim Creat Clear Calc 33.99 Est GFR (MDRD) Af Amer 48 L Est GFR (MDRD) Non-Af 40 L BUN/Creatinine Ratio 17.0 Glucose 114 H Calcium 8.5 Phosphorus 3.6 Albumin 3.4 Free T4 1.31 POC Glucose 09/01/18 09/01/18 08/31/18 11:38 07:04 23:08 POC Glucose 137 H 128 H 148 H 08/31/18 16:19 POC Glucose 119 H Discharge Diet: Low fat/ Low Cholesterol, 1800 Calorie Control Diet, 2000 mg Sodium Diet Home Medications: Medications to take at Discharge Metformin HCl [Glucophage] 1,000 mg PO DAILY 05/26/18 simvastatin 20 mg tablet 20 mg PO QHS #90 tab 05/31/18 amiodarone 200 mg tablet 200 mg PO DAILY #30 tab 06/21/18 tiotropium bromide 2.5 mcg/actuation mist for inhalation 2 puff INHALATION QDAY #1 ea 07/20/18 apixaban 2.5 mg tablet 2.5 mg PO BID #60 tab 08/13/18 guaifenesin ER 1,200 mg tablet, extended release 12 hr 1,200 mg PO Q12H #90 tab 08/13/18 tamsulosin 0.4 mg capsule 0.4 mg PO DAILY #90 cap 08/13/18 Albuterol Aerosols [Ventolin Aerosols] 2.5 mg INHALATION Q4H PRN PRN vial.neb. 09/01/18 Furosemide [Lasix] 40 mg PO BID #60 tablet 09/01/18 Metoprolol(XL)Succ [Toprol Xl (Beta Phill)] 25 mg PO BID tablet 09/01/18 Following Prescrptions Were Given to Patient: Furosemide [Lasix] 40 mg PO BID #60 tablet Primary Care Physician: Roc Martinez MD [Primary Care Provider] - Please follow up with your Primary Care Physician in: 1-2 weeks Please Follow Up With: Maura Bradshaw DO When: 2 weeks Please Follow Up With: Marcelo Reynolds MD When: 2 weeks Disposition: Care Home facility Minutes spent on discharge:: 35 Medical Necessity - Tobacco Use Smoking Status: Former smoker Tobacco Use: Non-smoker Meaningful Use Info Meaningful Use Diagnoses (Choose all that apply): CHF - CHF RORY/ARB ordered at discharge?: No Reason RORY/ARB not ordered?: Worsening renal disease Documented LVEF (%): 60
== END 2018-09-01 13:59 | DRG 291 ==
LOC: ED 14:53 → PCU 15:04
PROVIDERS: Hospitalist; Internal Medicine Nephrology; Physician Assistant; Emergency Provider Emergency Medicine; Family Provider Internal Medicine; PCP Internal Medicine; Visit Provider Internal Medicine
DX: I13.0 Hypertensive heart and chronic kidney disease with heart failure and stage 1 through stage 4 chronic kidney disease, or unspecified chronic kidney disease (principal); I50.33 Acute on chronic diastolic (congestive) heart failure; J96.11 Chronic respiratory failure with hypoxia; N17.9 Acute kidney failure, unspecified; D46.9 Myelodysplastic syndrome, unspecified; D63.8 Anemia in other chronic diseases classified elsewhere; S90.31XA Contusion of right foot, initial encounter; W18.30XA Fall on same level, unspecified, initial encounter; Y92.010 Kitchen of single-family (private) house as the place of occurrence of the external cause; Z99.81 Dependence on supplemental oxygen; I48.2 Chronic atrial fibrillation; N40.0 Benign prostatic hyperplasia without lower urinary tract symptoms; J84.10 Pulmonary fibrosis, unspecified; J47.9 Bronchiectasis, uncomplicated; E11.22 Type 2 diabetes mellitus with diabetic chronic kidney disease; N18.3 Chronic kidney disease, stage 3 (moderate); R53.81 Other malaise; E78.5 Hyperlipidemia, unspecified; Z79.84 Long term (current) use of oral hypoglycemic drugs; Z79.01 Long term (current) use of anticoagulants; Z87.891 Personal history of nicotine dependence; Z79.899 Other long term (current) drug therapy
CPT/HCPCS: 36415; 71045; 71046; 73630; 76770; 80048; 80069; 82274; 82728; 82962; 83540; 83550; 83880; 84439; 84443; 84484; 85014; 85018; 85025; 86850; 86900; 86920; 86922; 87070; 87205; 93005; 94640; 94667; 94668; 97116; 97161; 97165; 97530; 99285; J1756; P9016; A4216; J1940

== ENCOUNTER → 2018-09-23 07:46 | Outpatient (CLI) | payer MEDICARE, OTHER, SELFPAY ==
[2018-09-21 20:51] LABS: Uric Acid 8.2 mg/dL (3.5-7.2)
[2018-09-22 15:00] VITALS: BMI 30.9
[2018-09-23] VITALS (7 sets, daily range): BP systolic 113–125; BP diastolic 52–71; PULSE 74–81; RESP 16; TEMP 36.4–37.1; O2SAT 92–99; BMI 31.4
== END ==
PROVIDERS: Family Provider Internal Medicine; PCP Internal Medicine; Referring Provider Family Medicine; Visit Provider Family Medicine
DX: D64.9 Anemia, unspecified (principal)
CPT/HCPCS: 36415; 36430; 84550; 86850; 86900; 86920; J7040; P9016; A4216